=== PATIENT | male | born 1945 | race Caucasian/White ===

== ENCOUNTER 2017-06-13 21:41 | Inpatient (IN) | payer OTHER ==
[~2017-06-13] VITALS: Ht 170.2 cm; Wt 104.9 kg
[2017-06-13] MEDS ORDERED: ASPIRIN 81 MG CHEW PO STA (22:27)
--- NOTE | 2017-06-13 22:50 | DIAGNOSTIC IMAGING REPORT ---
SINGLE VIEW CHEST CLINICAL HISTORY: Atypical chest pain. FINDINGS: An AP, portable, upright chest radiograph is obtained. No prior studies are available for comparison at the time of dictation. The examination is degraded by portable technique and patient rotation. The heart is enlarged. The pulmonary vasculature is noncongested. The lungs and pleural spaces are clear. No pneumothorax is seen. The skeletal structures are osteopenic. The bony thorax is grossly intact. IMPRESSION: Cardiomegaly with no acute cardiopulmonary abnormality. Electronically signed by: Jakob Martinez M.D. 06/13/2017 10:49 PM Dictated Date/Time: 06/13/2017 10:49 PM
[2017-06-13] MEDS ORDERED: ISS/10 PO (23:08)
[2017-06-13] MEDS ORDERED: NVLGI/PEN SC (23:08)
[2017-06-13] MEDS ORDERED: METO25TA56 PO (23:08)
[2017-06-13] MEDS ORDERED: FLUO40CA8 PO (23:08)
[2017-06-13] MEDS ORDERED: ASPI81TA28 PO (23:08)
[2017-06-13] MEDS ORDERED: FENO134C2 PO (23:08)
[2017-06-13] MEDS ORDERED: INSDGIPEN SC (23:08)
[2017-06-13] MEDS ORDERED: ATOR-24 PO (23:08)
[2017-06-13] MEDS ORDERED: NTRGSL/4 UT (23:08)
[2017-06-13 23:21] LABS: BASO % 0.5 %; BASO ABS # 0.06 K/uL (0-0.2); COMPLETE YES; EOS % 4.1 %; HEMATOCRIT 48.3 % (42-52); IG% 0.4 %; LYMPH % 32.9 %; LYMPH ABS # 4.06 K/uL (1.2-3.4); MEAN CELL VOLUME 94.2 fL (80-100); MEAN CORPUSCULAR HGB CONC 32.9 g/dl (32-36); MEAN PLATELET VOLUME 10.3 fL (7.4-10.4); MONO % 8.6 %; NEUT % 53.5 %; PLATELET COUNT 308 K/uL (130-400); RED BLOOD COUNT 5.13 M/uL (4.7-6.1); WHITE BLOOD COUNT 12.34 K/uL (4.8-10.8)
[2017-06-13 23:28] LABS: ALT/SGPT 42 U/L (12-78); BLOOD UREA NITROGEN 16 mg/dl (7-18); BUN/CREATININE RATIO 13.6 (10-20); CARBON DIOXIDE 25 mmol/L (21-32); CHLORIDE 106 mmol/L (98-107); GLUCOSE 280 mg/dl (70-99); POTASSIUM 4.2 mmol/L (3.5-5.1); SODIUM 139 mmol/L (136-145)
[2017-06-13 23:33] LABS: ALKALINE PHOSPHATASE 71 U/L (45-117); AST/SGOT 24 U/L (15-37)
[2017-06-14] VITALS (13 sets, daily range): BP systolic 94–169; BP diastolic 54–109; PULSE 59–94; TEMP 36.6–37; O2SAT 93–95; BMI 36.8
--- NOTE | 2017-06-14 00:57 | EMERGENCY ROOM VISIT NOTE ---
History Report prepared by Keegan: Regine Wilson Under the Supervision of: Dr. Godfrey Zapien M.D. First contact with patient: 22:16 Chief Complaint: CHEST PAIN Stated Complaint: CHEST PAIN Nursing Triage Summary: Patient reports chest pain that began approx 40 mins ago. Patient has hx 4 stents and 2 RI's. Patient has been under a lot of stress taking care of his . Patient took 1 Nitro when pain began and the pain subsided with the Nitro. History of Present Illness The patient is a 71 year old male who presents to the Emergency Room with complaints of intermittent chest pain starting 1 hour ago. He states that the pain feels like indigestion. He took some nitro which relieved the pain. He had a second episode of chest pain while he was in the ED. It lasted for around 5 minutes. He states that he has a "feeling of doom". He had some SOB and tachycardia with the chest pain. The pain does not radiate elsewhere. He denies any nausea or diaphoresis. He has a history of 2 MIs around 20 years ago. He has [address] He did not have chest pain like today at that time. He notes that he is under a lot of stress recently with the of his daughter and medical problems with his . He is feeling anxious. He denies any cough, congestion, fever, or chills. He has had intermittent diarrhea for months which was attributed to one of his medications. He has a history of diabetes and is on insulin. He has been eating and drinking well. Source of History: patient Onset: 1 hour ago Position: chest Quality: other (like indigestion) Timing: intermittent Modifying Factors (Relieving): other (nitro) Associated Symptoms: + SOB, No diaphoresis, No nausea Note: Pt reports tachycardia, anxiety. Review of Systems See HPI for pertinent positives and negatives. A total of ten systems were reviewed and were otherwise negative. Past Medical & Surgical Medical Problems: (1) Anxiety (2) CAD (coronary artery disease), [place] coronary artery (3) CAD S/P percutaneous coronary angioplasty (4) COPD (chronic obstructive pulmonary disease) (5) Depression (6) Diabetes (7) HTN (hypertension) (8) Left bundle branch block (LBBB) on electrocardiogram (9) Macroalbuminuric diabetic nephropathy (10) Myocardial infarction (11) Noncompliance w/medication treatment due to intermit use of medication (12) Obesity (BMI 30-39.9) (13) T2DM (type 2 diabetes mellitus) Surgical Problems: (1) S/P soraya Social History Problems: (1) Tobacco use Family History No pertinent family history stated. Social History Smoking Status: Current Every Day Smoker Marital Status: Current/Historical Medications Scheduled Aspirin (Aspirin Ec), 81 MG PO HS Atorvastatin (Lipitor), 40 MG PO HS Fenofibrate (Tricor ), 134 MG PO HS Fluoxetine (Prozac), 40 MG PO HS Insulin Aspart (Novolog Flexpen), 26 UNITS SC TIDM Insulin Glargine (Lantus Solostar), 40 UNITS SC HS Isosorbide Dinitrate (Isordil), 10 MG PO HS Metoprolol Tartrate (Lopressor) (Lopressor), 25 MG PO HS Scheduled PRN Nitroglycerin (Nitrostat), 0.4 MG UT UD PRN for Chest Pain Allergies Coded Allergies: VELMA Inhibitors (Verified Allergy, Unknown, unknown, 06/14/17) Physical Exam Vital Signs Date Time Temp Pulse Resp B/P (MAP) Pulse Ox O2 Delivery O2 Flow Rate FiO2 06/13/17 23:07 85 18 156/58 95 06/13/17 23:02 98 Room Air 06/13/17 22:04 95 06/13/17 21:44 36.9 96 16 177/76 97 Room Air Physical Exam GENERAL: Awake, alert, in no acute distress HENT: Normocephalic, atraumatic. Dry mucous membranes. EYES: Normal conjunctiva. Sclera non-icteric. NECK: Supple. No nuchal rigidity. FROM. No JVD. RESPIRATORY: Clear to auscultation. CARDIAC: Regular rate, normal rhythm. Extremities warm and well perfused. Pulses equal. ABDOMEN: Soft, non-distended. No tenderness to palpation. No rebound or guarding. No masses. RECTAL: Deferred. MUSCULOSKELETAL: Chest examination reveals no tenderness. The back is symmetrical on inspection without obvious abnormality. There is no CVA tenderness to palpation. No joint edema. LOWER EXTREMITIES: Calves are equal size bilaterally and non-tender. No edema. No discoloration. NEURO: Normal sensorium. No sensory or motor deficits noted. SKIN: No rash or jaundice noted. Medical Decision & Procedures ER Provider Diagnostic Interpretation: Radiology results as stated below per my review and radiologist interpretation: SINGLE VIEW CHEST CLINICAL HISTORY: Atypical chest pain. FINDINGS: An AP, portable, upright chest radiograph is obtained. No prior studies are available for comparison at the time of dictation. The examination is degraded by portable technique and patient rotation. The heart is enlarged. The pulmonary vasculature is noncongested. The lungs and pleural spaces are clear. No pneumothorax is seen. The skeletal structures are osteopenic. The bony thorax is grossly intact. IMPRESSION: Cardiomegaly with no acute cardiopulmonary abnormality. Electronically signed by: Jakob Martinez M.D. 06/13/2017 10:49 PM Dictated Date/Time: 06/13/2017 10:49 PM Laboratory Results Test 06/13/17 21:55 06/13/17 22:08 Immature Granulocyte % (Auto) 0.4 % White Blood Count 12.34 K/uL (4.8-10.8) Red Blood Count 5.13 M/uL (4.7-6.1) Hemoglobin 15.9 g/dL (14.0-18.0) Hematocrit 48.3 % (42-52) Mean Corpuscular Volume 94.2 fL (80-100) Mean Corpuscular Hemoglobin 31.0 pg (25-34) Mean Corpuscular Hemoglobin Concent 32.9 g/dl (32-36) Platelet Count 308 K/uL (130-400) Mean Platelet Volume 10.3 fL (7.4-10.4) Neutrophils (%) (Auto) 53.5 % Lymphocytes (%) (Auto) 32.9 % Monocytes (%) (Auto) 8.6 % Eosinophils (%) (Auto) 4.1 % Basophils (%) (Auto) 0.5 % Neutrophils # (Auto) 6.60 K/uL (1.4-6.5) Lymphocytes # (Auto) 4.06 K/uL (1.2-3.4) Monocytes # (Auto) 1.06 K/uL (0.11-0.59) Eosinophils # (Auto) 0.51 K/uL (0-0.5) Basophils # (Auto) 0.06 K/uL (0-0.2) Immature Granulocyte # (Auto) 0.05 K/uL (0.00-0.02) Total Bilirubin 0.4 mg/dl (0.2-1) Direct Bilirubin 0.1 mg/dl (0-0.2) Aspartate Amino Transf (AST/SGOT) 24 U/L (15-37) Alanine Aminotransferase (ALT/SGPT) 42 U/L (12-78) Alkaline Phosphatase 71 U/L (45-117) Total Protein 7.0 gm/dl (6.4-8.2) Albumin 3.6 gm/dl (3.4-5.0) Lipase 256 U/L (73-393) Bedside Troponin I < 0.030 ng/ml (0-0.045) Laboratory results reviewed by me Medications Administered Medications (Trade) Dose Ordered Sig/Mariella Route Start Time Stop Time Status Last Admin Dose Admin Aspirin (Aspirin Chew) 324 mg NOW STAT PO 06/13/17 22:27 06/13/17 22:29 DC 06/13/17 23:03 324 MG Nitroglycerin (Nitrostat Tab) 0.4 mg UD PRN SL 06/14/17 01:00 07/14/17 00:59 06/14/17 06:00 0.4 MG ECG Indication: chest pain Rate (beats per minute): 91 Rhythm: atrial fibrillation Findings: LBBB, no acute ischemic change ED Course 2226: The patient was evaluated in room C10. A complete history and physical exam was performed. 2227: Aspirin 324 mg PO. 2358: Upon reexamination, the patient was resting comfortably. I discussed the test results and treatment plan with him. The patient will be evaluated for further management. 0011: I discussed the patient's case with Dr. Colon, [facility]. The patient will be evaluated for further treatment and disposition. Medical Decision I reviewed the patient's past medical history, medications, and the nursing notes as described above. Differential diagnosis: pneumonia, bronchitis, ACS, gastritis, Arrhythmia, dehydration, electrolyte abnormalities The patient is a 71-year-old gentleman with a past medical history of CAD/RI just emergent department with chest pain starting prior to arrival that he felt was similar to his heart attack in the past, took nitroglycerin with resolution of symptoms per hpi. On arrival the patient is in no acute distress denying any symptoms, afebrile with stable vital signs. During patient's ED observation patient reported a return episode of the similar chest pain that resolved after 5 minutes. EKG shows atrial fibrillation with a left bundle branch block without any Sgarbossa criteria or signs of ischemia otherwise. Unclear if LBBB is new or old, however, Troponin negative, thus will continue to trend and monitor sx. Chest x-ray unremarkable. Given the patient's history of cardiac disease in the setting of his symptoms, Heart score 6, moderate risk , will admit the patient for further cardiac rule out. Patient given ASA. Case discussed with Thad Dill hospitalist, who will admit the patient for further management. On further review of the patient's hx, patient's afib appears to be new, CHADsVasc 3 and he is not on anticoagulation. Denies h/o GI bleeds. Dr. Colon updated and will begin heparin until further plan confirmed in consultation with cardiology. Medication Reconcilliation Current Medication List: was personally reviewed by me Blood Pressure Screening Patient's blood pressure: Elevated blood pressure Blood pressure disposition: Elevated BP felt to be situational Consults Time Called: 0000 Consulting Physician[facility] Return[facility] Call: 0011 Discussed the patient's case. The patient will be evaluated for further treatment and disposition. Impression Primary Impression: Substernal chest pain Scribe Attestation The scribe's documentation has been prepared under my direction and personally reviewed by me in its entirety. I confirm that the note above accurately reflects all work, treatment, procedures, and medical decision making performed by me. Departure Information Dispostion Being Evaluated By Hospitalist Referrals No Doctor, Assigned (PCP) Patient Instructions My [facility]
[2017-06-14] MEDS ORDERED: MoRPHine SULFATE 2 MG/ML CARP IV PRN (01:00)
[2017-06-14] MEDS ORDERED: NITROGLYCERIN 0.4 MG SL PER TAB CHARGE SL PRN (01:00)
[2017-06-14] MEDS ORDERED: PATIENT'S ALLERGY INFO NEEDS ENTERED SCH (02:15)
[2017-06-14] MEDS ORDERED: HEPARIN IV BOLUS 7,000 UNIT in SYRINGE 0 ML IV ONE (03:00)
[2017-06-14] MEDS ORDERED: INFLUENZA VACCINE HIGH DOSE 65+ 0.5 ML SYR IM. ONE (03:15)
[2017-06-14] MEDS ORDERED: PNEUMOCOCCAL ADMINISTRATION CHARGE ONE (03:15)
[2017-06-14] MEDS ORDERED: PNEUMOCOCCAL POLYSACCHARIDES 25 MCG/0.5 ML VIAL/SYR IM. ONE (03:15)
[2017-06-14] MEDS ORDERED: INFLUENZA ADMINISTRATION CHARGE ONE (03:15)
[2017-06-14] MEDS ORDERED: IV FLUIDS COMPLETED PRN (03:15)
[2017-06-14] MEDS: HEPARIN 25,000 UNIT/500ML D5W 500 ML IV PRN ×2 (03:42→20:07)
[2017-06-14] MEDS ORDERED: GLUCOSE 10 TABS/TUBE PO PRN (04:00)
[2017-06-14] MEDS ORDERED: GLUCOSE 40% GEL 15 GM TUBE PO PRN (04:00)
[2017-06-14] MEDS ORDERED: DEXTROSE 50% 50 ML SYR IV PRN (04:00)
[2017-06-14] MEDS ORDERED: GLUCAGON FOR INJ 1 MG VIAL SQ PRN (04:00)
--- NOTE | 2017-06-14 04:14 | History and Physical ---
History & Physical Date & Time of Service: Jun 14, 2017 at 03:54 Chief Complaint: Substernal Chest Pain Primary Care Physician: Viet Holly D.OBrooks History of Present Illness Source: patient, clinic records, hospital records 71 yo diabetic male with known heart disease s/p TX with 4 stents placed over 10 years ago presents with chest pain today. He states that 1 hour after dinner he developed substernal chest pain that came on at rest and made him feel a "sense of doom" as though the "world were closing in on him." He describes this as a "feeling I've never had before" This pain was associated with diaphoresis and some palpitations; he denies associated lightheadedness, nausea or SOB. He does not recall a history of palpitations prior to this but states that he did feel some chest pressure for 30-60 minutes that occurred while he was watching TV 3 weeks ago. He was less concerned about this episode , however, as he knew he had just taken insulin and he thought he just had low blood sugar. He denies a h/o afib and this is not found in his record. He states that he has noticeable dyspnea on exertion over the past 6 months but the changes are subtle and not limiting him in his lifestyle which is very active at baseline consisting of hunting deer and bear including skinning/ cleaning the animals. He is going through a very hard time over the last few months.also. His daughter was brutally murdered, his granddaughter was hurt as a bystander and he and his are fighting for custody of her. Then most recently, his was in the hospital for two weeks and diagnosed with lung cancer; she is starting on her chemotherapy regimen soon. He is still an active smoker who states that he has smoked for 50 years and he is down to 1 ppd instead of 2. He is requesting a nicotine patch. He is using snuff on the side. He denies having seen a hat copyist in 10 years. He reports noncompliance with his medications including his insulin. Past Medical/Surgical History Medical Problems: (1) Anxiety Status: Chronic (2) CAD (coronary artery disease), [place] coronary artery Status: Chronic (3) CAD S/P percutaneous coronary angioplasty Permanent Comment: 4 stents Status: Chronic (4) COPD (chronic obstructive pulmonary disease) Status: Chronic (5) Depression Status: Chronic (6) HTN (hypertension) Status: Chronic (7) Left bundle branch block (LBBB) on electrocardiogram Status: Chronic (8) Macroalbuminuric diabetic nephropathy Status: Chronic (9) Myocardial infarction Status: Resolved (10) Noncompliance w/medication treatment due to intermit use of medication Status: Chronic (11) Obesity (BMI 30-39.9) Status: Chronic (12) T2DM (type 2 diabetes mellitus) Status: Chronic Surgical Problems: (1) S/P soraya Status: Chronic Social History Problems: (1) Tobacco use Status: Chronic Family History FH: CAD (coronary artery disease) FATHER (83 yo) FH: cancer MOTHER Social History Smoking Status: Current Every Day Smoker Smokeless Tobacco Use: Yes Drug Use: none Marital Status: Housing status: lives with significant other Occupational Status: retired Immunizations History of Influenza Vaccine: Yes Influenza Vaccine Date: Jul 19, 2016 History of Tetanus Vaccine?: Yes Tetanus Immunization Date: Dec 31, 2008 History of Pneumococcal: Yes Pneumococcal Date: Jul 19, 2016 History of Hepatitis B Vaccine: No Multi-Drug Resistant Organisms History of MDRO: No Allergies Coded Allergies: Gaurang Inhibitors (Verified Allergy, Unknown, unknown, 06/14/17) Home Medications Scheduled Aspirin (Aspirin Ec), 81 MG PO HS Atorvastatin (Lipitor), 40 MG PO HS Fenofibrate (Tricor ), 134 MG PO HS Fluoxetine (Prozac), 40 MG PO HS Insulin Aspart (Novolog Flexpen), 26 UNITS SC TIDM Insulin Glargine (Lantus Solostar), 40 UNITS SC HS Isosorbide Dinitrate (Isordil), 10 MG PO HS Metoprolol Tartrate (Lopressor) (Lopressor), 25 MG PO HS Scheduled PRN Nitroglycerin (Nitrostat), 0.4 MG UT UD PRN for Chest Pain Review of Systems Constitutional: No fever, No chills, No weakness Eyes: No problem reported ENT: No problem reported Respiratory: + dyspnea on exertion, No cough, No shortness of breath Cardiovascular: + chest pain Abdomen: No pain, No nausea, No vomiting, No diarrhea, No constipation, No GI bleeding Musculoskeletal: No joint pain, No muscle pain Genitourinary - Male: No problem reported Neurologic: No problem reported Psychiatric: + depression symptoms, + anxiety Hematologic / Lymphatic: No abnormal bleeding/bruising Integumentary: No new/changing skin lesions Allergic / Immunologic: No food allergies Physical Exam Vital Signs Date Time Temp Pulse Resp B/P (MAP) Pulse Ox O2 Delivery O2 Flow Rate FiO2 06/14/17 02:30 36.8 94 18 135/59 95 Room Air 06/14/17 01:25 89 18 134/73 95 Room Air 06/13/17 23:07 85 18 156/58 95 06/13/17 23:02 98 Room Air 06/13/17 22:04 95 06/13/17 21:44 36.9 96 16 177/76 97 Room Air General Appearance: no apparent distress, + obese Head: normocephalic, atraumatic Eyes: normal inspection, PERRL, sclerae normal ENT: hearing grossly normal, pharynx normal Neck: supple, no adenopathy, trachea midline Respiratory/Chest: chest non-tender, lungs clear, normal breath sounds, no respiratory distress, no accessory muscle use Cardiovascular: regular rate, rhythm, no edema, no gallop, no JVD, no murmur, normal peripheral pulses Abdomen/GI: normal bowel sounds, non tender, soft Back: normal inspection Extremities/Musculoskelatal: normal inspection, no calf tenderness, normal range of motion Neurologic/Psych: no motor/sensory deficits, alert, normal mood/affect, oriented x 3 Skin: normal color, warm/dry, no rash, + pertinent finding (tattooes across back) Diagnostics Laboratory Results Test 06/13/17 21:55 06/13/17 22:08 06/14/17 04:00 RDW Standard Deviation 44.7 fL (36.4-46.3) RDW Coefficient of Variation 12.8 % (11.5-14.5) White Blood Count 12.34 K/uL (4.8-10.8) Red Blood Count 5.13 M/uL (4.7-6.1) Hemoglobin 15.9 g/dL (14.0-18.0) Hematocrit 48.3 % (42-52) Mean Corpuscular Volume 94.2 fL (80-100) Mean Corpuscular Hemoglobin 31.0 pg (25-34) Mean Corpuscular Hemoglobin Concent 32.9 g/dl (32-36) Platelet Count 308 K/uL (130-400) Mean Platelet Volume 10.3 fL (7.4-10.4) Neutrophils (%) (Auto) 53.5 % Lymphocytes (%) (Auto) 32.9 % Monocytes (%) (Auto) 8.6 % Eosinophils (%) (Auto) 4.1 % Basophils (%) (Auto) 0.5 % Neutrophils # (Auto) 6.60 K/uL (1.4-6.5) Lymphocytes # (Auto) 4.06 K/uL (1.2-3.4) Monocytes # (Auto) 1.06 K/uL (0.11-0.59) Eosinophils # (Auto) 0.51 K/uL (0-0.5) Basophils # (Auto) 0.06 K/uL (0-0.2) Immature Granulocyte % (Auto) 0.4 % Immature Granulocyte # (Auto) 0.05 K/uL (0.00-0.02) Est Creatinine Clear Calc Drug Dose 65.9 ml/min Total Bilirubin 0.4 mg/dl (0.2-1) Direct Bilirubin 0.1 mg/dl (0-0.2) Aspartate Amino Transf (AST/SGOT) 24 U/L (15-37) Alanine Aminotransferase (ALT/SGPT) 42 U/L (12-78) Alkaline Phosphatase 71 U/L (45-117) Total Protein 7.0 gm/dl (6.4-8.2) Albumin 3.6 gm/dl (3.4-5.0) Lipase 256 U/L (73-393) Bedside Troponin I < 0.030 ng/ml (0-0.045) Creatine Kinase MB Ratio (0-3.0) Test 06/13/17 21:55 06/13/17 22:08 06/14/17 04:00 RDW Standard Deviation 44.7 fL (36.4-46.3) RDW Coefficient of Variation 12.8 % (11.5-14.5) White Blood Count 12.34 K/uL (4.8-10.8) Red Blood Count 5.13 M/uL (4.7-6.1) Hemoglobin 15.9 g/dL (14.0-18.0) Hematocrit 48.3 % (42-52) Mean Corpuscular Volume 94.2 fL (80-100) Mean Corpuscular Hemoglobin 31.0 pg (25-34) Mean Corpuscular Hemoglobin Concent 32.9 g/dl (32-36) Platelet Count 308 K/uL (130-400) Mean Platelet Volume 10.3 fL (7.4-10.4) Neutrophils (%) (Auto) 53.5 % Lymphocytes (%) (Auto) 32.9 % Monocytes (%) (Auto) 8.6 % Eosinophils (%) (Auto) 4.1 % Basophils (%) (Auto) 0.5 % Neutrophils # (Auto) 6.60 K/uL (1.4-6.5) Lymphocytes # (Auto) 4.06 K/uL (1.2-3.4) Monocytes # (Auto) 1.06 K/uL (0.11-0.59) Eosinophils # (Auto) 0.51 K/uL (0-0.5) Basophils # (Auto) 0.06 K/uL (0-0.2) Immature Granulocyte % (Auto) 0.4 % Immature Granulocyte # (Auto) 0.05 K/uL (0.00-0.02) Est Creatinine Clear Calc Drug Dose 65.9 ml/min Total Bilirubin 0.4 mg/dl (0.2-1) Direct Bilirubin 0.1 mg/dl (0-0.2) Aspartate Amino Transf (AST/SGOT) 24 U/L (15-37) Alanine Aminotransferase (ALT/SGPT) 42 U/L (12-78) Alkaline Phosphatase 71 U/L (45-117) Total Protein 7.0 gm/dl (6.4-8.2) Albumin 3.6 gm/dl (3.4-5.0) Lipase 256 U/L (73-393) Bedside Troponin I < 0.030 ng/ml (0-0.045) Creatine Kinase MB Ratio (0-3.0) Results Past 24 Hours Test 06/13/17 21:55 06/13/17 22:08 06/14/17 03:13 Range/Units White Blood Count 12.34 4.8-10.8 K/uL Red Blood Count 5.13 4.7-6.1 M/uL Hemoglobin 15.9 14.0-18.0 g/dL Hematocrit 48.3 42-52 % Mean Corpuscular Volume 94.2 80-100 fL Mean Corpuscular Hemoglobin 31.0 25-34 pg Mean Corpuscular Hemoglobin Concent 32.9 32-36 g/dl Platelet Count 308 130-400 K/uL Mean Platelet Volume 10.3 7.4-10.4 fL Neutrophils (%) (Auto) 53.5 % Lymphocytes (%) (Auto) 32.9 % Monocytes (%) (Auto) 8.6 % Eosinophils (%) (Auto) 4.1 % Basophils (%) (Auto) 0.5 % Neutrophils # (Auto) 6.60 1.4-6.5 K/uL Lymphocytes # (Auto) 4.06 1.2-3.4 K/uL Monocytes # (Auto) 1.06 0.11-0.59 K/uL Eosinophils # (Auto) 0.51 0-0.5 K/uL Basophils # (Auto) 0.06 0-0.2 K/uL RDW Standard Deviation 44.7 36.4-46.3 fL RDW Coefficient of Variation 12.8 11.5-14.5 % Immature Granulocyte % (Auto) 0.4 % Immature Granulocyte # (Auto) 0.05 0.00-0.02 K/uL Sodium Level 139 136-145 mmol/L Potassium Level 4.2 3.5-5.1 mmol/L Chloride Level 106 98-107 mmol/L Carbon Dioxide Level 25 21-32 mmol/L Anion Gap 8.0 3-11 mmol/L Blood Urea Nitrogen 16 7-18 mg/dl Creatinine 1.20 0.60-1.40 mg/dl Est Creatinine Clear Calc Drug Dose 65.9 ml/min Estimated GFR () 70.1 Estimated GFR (Non- 60.5 BUN/Creatinine Ratio 13.6 10-20 Random Glucose 280 70-99 mg/dl Calcium Level 9.0 8.5-10.1 mg/dl Total Bilirubin 0.4 0.2-1 mg/dl Direct Bilirubin 0.1 0-0.2 mg/dl Aspartate Amino Transf (AST/SGOT) 24 15-37 U/L Alanine Aminotransferase (ALT/SGPT) 42 12-78 U/L Alkaline Phosphatase 71 45-117 U/L Troponin I < 0.015 0-0.045 ng/ml Total Protein 7.0 6.4-8.2 gm/dl Albumin 3.6 3.4-5.0 gm/dl Lipase 256 73-393 U/L Bedside Troponin I < 0.030 0-0.045 ng/ml Diagnostic Radiology SINGLE VIEW CHEST CLINICAL HISTORY: Atypical chest pain. FINDINGS: An AP, portable, upright chest radiograph is obtained. No prior studies are available for comparison at the time of dictation. The examination is degraded by portable technique and patient rotation. The heart is enlarged. The pulmonary vasculature is noncongested. The lungs and pleural spaces are clear. No pneumothorax is seen. The skeletal structures are osteopenic. The bony thorax is grossly intact. IMPRESSION: Cardiomegaly with no acute cardiopulmonary abnormality. EKG atrial fibrillation, LBBB, 91 bpm Impression Assessment and Plan 71 yo diabetic smoker with known heart disease s/p stents presents with an episode of chest pain, new onset atrial fibrillation and worsening MOSQUEDA over 6 months. 1. Substernal chest pain-improved with nitro but he is very active with no pain or SOB present. Episode tonight was about 5 minutes in length. He is experiencing some very notable stressors, and admits to not taking all of his medications (including insulin) as it is prescribed. Afib may also be causing the discomfort or even indigestion. Serial cardiac enzymes overnight, TTE in am with Cardiology consult to assist with what stress test mechanism to use for risk stratification moving forward. Pain resolved at home and in the ER with nitro use, Cont ASA, statin, Plavix. 2. CAD-s/p stents. Cont medical management. 3. New onset atrial fibrillation. Started heparin drip while awaiting evaluation and further discussion with Cardiology team. TTE pending. TSH pending. Does not meet criteria or have any clinical symptoms of pulmonary embolism. Rate is WNL. No rate control is needed at this time. 4. Depression-cont Prozac and Ativan PRN 5. DMII-cont Lantus/Novolog. PT admits to noncompliance and has known complications. 6. LBBB-chronic on prior EKG 7. Psoriasis-controlled only with topical steroids PRN. DVT proph: Heparin drip Full Code Dispo-to telemetry overnight [facility] Level of Care Telemetry Advanced Directives Existing Living Will: No Existing Power of Optometric Tech: Yes Resuscitation Status FULL RESUSCITATION VTE Prophylaxis VTE Risk Assessment Done? Y/N: Yes Risk Level: Moderate Given or contraindicated: Unfractionated heparin SQ
[2017-06-14 04:15] LABS: HEMATOCRIT 44.7 % (42-52); MEAN CELL VOLUME 92.7 fL (80-100); MEAN CORPUSCULAR HEMOGLOBIN 32.2 pg (25-34); MEAN CORPUSCULAR HGB CONC 34.7 g/dl (32-36); MEAN PLATELET VOLUME 10.6 fL (7.4-10.4); PLATELET COUNT 281 K/uL (130-400); RED BLOOD COUNT 4.82 M/uL (4.7-6.1); WHITE BLOOD COUNT 12.73 K/uL (4.8-10.8)
[2017-06-14 04:19] LABS: PARTIAL THROMBOPLASTIN RATIO 1.3
[2017-06-14 04:58] LABS: BUN/CREATININE RATIO 21.7 (10-20); CALCIUM 8.4 mg/dl (8.5-10.1); CREATININE 0.84 mg/dl (0.60-1.40)
[2017-06-14 05:06] LABS: CHOLESTEROL/HDL RATIO 4.2; CKMB/CK RATIO 3.2 (0-3.0)
[2017-06-14] MEDS ORDERED: PERFLUTREN LIPID MICROSPHERE (DEFINITY) IV ONE (07:01)
[2017-06-14] MEDS: NICOTINE 21 MG/24 HR TDSY TD SCH (08:56)
[2017-06-14] MEDS: FENOFIBRATE 145 MG TAB PO SCH (08:56)
[2017-06-14] MEDS: ASPIRIN 81 MG ECTAB PO SCH (08:56)
[2017-06-14] MEDS: INSULIN ASPART 100 UNITS/ML 3 ML PEN SC SCH ×4 (09:00→20:56)
[2017-06-14] MEDS: INSULIN GLARGINE SOLOSTAR 100 UNITS/ML 3 ML PEN SC SCH ×2 (09:00→20:56)
[2017-06-14 10:41] LABS: PARTIAL THROMBOPLASTIN RATIO 2.1
[2017-06-14] MEDS ORDERED: PHARMACY GLYCEMIC MGMT CONSULT PRN (10:43)
[2017-06-14 11:01] LABS: CKMB/CK RATIO 3.5 (0-3.0)
--- NOTE | 2017-06-14 11:55 | Progress Note ---
Medicine Progress Note Date & Time of Visit: Jun 14, 2017 at 11:55. Subjective patient seen resting in bed, tearful has been having successive stressors lately with recent and illness in the family patient reassured and seemed to be better had occasional chest pain overnight none on exam denies dyspnea, dizziness, headache, nausea no other symptoms Objective Last 8 Hrs Date Time Temp Pulse Resp B/P (MAP) Pulse Ox O2 Delivery O2 Flow Rate FiO2 06/14/17 11:40 165/80 (108) 06/14/17 11:11 36.9 81 20 169/109 (129) 94 Room Air 06/14/17 08:00 95 Room Air 06/14/17 07:22 36.7 83 20 154/75 (101) 95 Room Air 06/14/17 05:54 79 139/80 (99) 06/14/17 04:00 Room Air 06/14/17 04:00 37.0 87 16 123/70 (87) 93 Room Air Physical Exam: General- oriented x 3, not in distress, speaks in sentences with no effort Head- atraumatic Eyes- EOMI, anicteric ENT- oropharynx clear Neck- supple, no JVD, no adenopathy, no thyromegaly Lungs- clear breath sounds bilaterally, no rales/wheezes Heart- regular rhythm; no murmur, normal rate Abdomen- normal bowel sounds, soft, nontender Extremities- no pretibial edema, no calf tenderness Neuro- alert, oriented x 3; no gross focal deficits Skin- warm & dry Laboratory Results: Last 24 Hours Test 06/13/17 21:55 06/13/17 22:08 06/14/17 04:00 06/14/17 08:53 White Blood Count 12.34 K/uL 12.73 K/uL Red Blood Count 5.13 M/uL 4.82 M/uL Hemoglobin 15.9 g/dL 15.5 g/dL Hematocrit 48.3 % 44.7 % Mean Corpuscular Volume 94.2 fL 92.7 fL Mean Corpuscular Hemoglobin 31.0 pg 32.2 pg Mean Corpuscular Hemoglobin Concent 32.9 g/dl 34.7 g/dl Platelet Count 308 K/uL 281 K/uL Mean Platelet Volume 10.3 fL 10.6 fL Neutrophils (%) (Auto) 53.5 % Lymphocytes (%) (Auto) 32.9 % Monocytes (%) (Auto) 8.6 % Eosinophils (%) (Auto) 4.1 % Basophils (%) (Auto) 0.5 % Neutrophils # (Auto) 6.60 K/uL Lymphocytes # (Auto) 4.06 K/uL Monocytes # (Auto) 1.06 K/uL Eosinophils # (Auto) 0.51 K/uL Basophils # (Auto) 0.06 K/uL RDW Standard Deviation 44.7 fL 43.2 fL RDW Coefficient of Variation 12.8 % 12.7 % Immature Granulocyte % (Auto) 0.4 % Immature Granulocyte # (Auto) 0.05 K/uL Sodium Level 139 mmol/L 138 mmol/L Potassium Level 4.2 mmol/L 4.0 mmol/L Chloride Level 106 mmol/L 105 mmol/L Carbon Dioxide Level 25 mmol/L 26 mmol/L Anion Gap 8.0 mmol/L 7.0 mmol/L Blood Urea Nitrogen 16 mg/dl 18 mg/dl Creatinine 1.20 mg/dl 0.84 mg/dl Est Creatinine Clear Calc Drug Dose 65.9 ml/min 93.9 ml/min Estimated GFR () 70.1 102.1 Estimated GFR (Non- 60.5 88.1 BUN/Creatinine Ratio 13.6 21.7 Random Glucose 280 mg/dl 248 mg/dl Calcium Level 9.0 mg/dl 8.4 mg/dl Total Bilirubin 0.4 mg/dl Direct Bilirubin 0.1 mg/dl Aspartate Amino Transf (AST/SGOT) 24 U/L Alanine Aminotransferase (ALT/SGPT) 42 U/L Alkaline Phosphatase 71 U/L Troponin I < 0.015 ng/ml 0.097 ng/ml Total Protein 7.0 gm/dl Albumin 3.6 gm/dl Lipase 256 U/L Bedside Troponin I < 0.030 ng/ml Activated Partial Thromboplast Time 34.1 SECONDS Partial Thromboplastin Ratio 1.3 Total Creatine Kinase 56 U/L Creatine Kinase MB 1.8 ng/ml Creatine Kinase MB Ratio 3.2 Triglycerides Level 191 mg/dl Cholesterol Level 97 mg/dl HDL Cholesterol 23 mg/dl LDL Cholesterol, Calculated 36 mg/dl VLDL Cholesterol, Calculated 38 mg/dl Cholesterol/HDL Ratio 4.2 Bedside Glucose 217 mg/dl Test 06/14/17 09:50 06/14/17 11:22 Activated Partial Thromboplast Time 55.0 SECONDS Partial Thromboplastin Ratio 2.1 Total Creatine Kinase 54 U/L Creatine Kinase MB 1.9 ng/ml Creatine Kinase MB Ratio 3.5 Troponin I 0.126 ng/ml Thyroid Stimulating Hormone (TSH) 3.050 uIu/ml Bedside Glucose 175 mg/dl Assessment & Plan 71 yo diabetic smoker with known heart disease s/p stents presents with an episode of chest pain, new onset atrial fibrillation and worsening MOSQUEDA over 6 months. 1. Substernal chest pain - 2nd troponin slightly elevated - Metoprolol increased, Imdur added possible stress test in AM 2. CAD-s/p stents - Cont medical management. 3. New onset atrial fibrillation. - Metoprolol increased on Heparin 4. Depression-cont Prozac and Ativan PRN 5. DMII-cont Lantus/Novolog. 6. LBBB-chronic on prior EKG 7. Psoriasis-controlled only with topical steroids PRN. DVT proph: Heparin drip Full Code Disposition for possible stress test in AM Current Inpatient Medications: Current Inpatient Medications Medications (Trade) Dose Ordered Sig/Mariella Route Start Time Stop Time Status Last Admin Dose Admin Nitroglycerin (Nitrostat Tab) 0.4 mg UD PRN SL 06/14/17 01:00 07/14/17 00:59 06/14/17 06:00 0.4 MG Morphine Sulfate (MoRPHine SULFATE INJ) 2 mg Q30M PRN IV 06/14/17 01:00 06/28/17 00:59 Aspirin (Ecotrin Tab) 81 mg QAM PO 06/14/17 09:00 07/14/17 08:59 06/14/17 08:56 81 MG Heparin Sodium/ Dextrose 500 ml @ 30 mls/hr [id number] PRN IV 06/14/17 03:15 07/14/17 03:14 06/14/17 03:42 30 MLS/HR Miscellaneous (Iv Fluids Completed) 1 ea PRN PRN N/A 06/14/17 03:15 06/14/18 03:14 Atorvastatin Calcium (Lipitor Tab) 40 mg HS PO 06/14/17 21:00 07/14/17 20:59 Fluoxetine HCl (Prozac Cap) 40 mg HS PO 06/14/17 21:00 07/14/17 20:59 Isosorbide Dinitrate (Isordil Tab) 10 mg HS PO 06/14/17 21:00 07/14/17 20:59 Metoprolol Tartrate (Lopressor Tab) 25 mg HS PO 06/14/17 21:00 07/14/17 20:59 Fenofibrate (Tricor Tab) 145 mg QAM PO 06/14/17 09:00 07/14/17 08:59 06/14/17 08:56 145 MG Insulin Glargine (Lantus Solostar Pen) 20 units Q12 SC 06/14/17 09:00 07/14/17 08:59 06/14/17 09:00 20 UNITS Insulin Aspart (novoLOG ASPART) SLIDING SCALE If C... ACHS SC 06/14/17 06:30 07/14/17 06:29 06/14/17 09:00 2 UNITS Glucose (Glucose 40% Gel) 15-30 GRAMS 15 GRAMS... UD PRN PO 06/14/17 04:00 07/14/17 03:59 Glucose (Glucose Chew Tab) 4-8 Tablets 4 Tabl... UD PRN PO 06/14/17 04:00 07/14/17 03:59 Dextrose (Dextrose 50% 50ML Syringe) 25-50ML OF 50% DW IV FOR... UD PRN IV 06/14/17 04:00 07/14/17 03:59 Glucagon (Glucagon Inj) 1 mg UD PRN SQ 06/14/17 04:00 07/14/17 03:59 Nicotine (Nicoderm Cq 21MG Patch) 1 patch Q24H TD 06/14/17 09:00 07/14/17 08:59 06/14/17 08:56 1 PATCH Miscellaneous (Remove Nicoderm Patch) 1 ea DAILY@2100 N/A 06/14/17 21:00 07/14/17 20:59 Miscellaneous Information (Consult Glycemic Management Pharmacy) 1 ea UD PRN N/A 06/14/17 10:43 07/14/17 10:42
--- NOTE | 2017-06-14 12:05 | Pharmacy Progress Note ---
Glycemic Control Intl Consult Date of Service Jun 14, 2017. Scope Glycemic Pharmacist consulted by Dr Colon on 06/14/17 for glycemic control and to write orders per [facility] inpatient glycemic control protocol Objective Weight (Kilograms): 106.600 Accuchecks BSG (last 24hrs): Test 06/13/17 21:55 06/14/17 04:00 06/14/17 08:53 06/14/17 11:22 Random Glucose 280 mg/dl (70-99) 248 mg/dl (70-99) Bedside Glucose 217 mg/dl (70-99) 175 mg/dl (70-99) Laboratory Data (last 24hrs) Test 06/13/17 21:55 06/14/17 04:00 Anion Gap 8.0 mmol/L 7.0 mmol/L BUN/Creatinine Ratio 13.6 21.7 Blood Urea Nitrogen 16 mg/dl 18 mg/dl Creatinine 1.20 mg/dl 0.84 mg/dl Potassium Level 4.2 mmol/L 4.0 mmol/L Sodium Level 139 mmol/L 138 mmol/L White Blood Count 12.34 K/uL 12.73 K/uL Red Blood Count 5.13 M/uL Hemoglobin 15.9 g/dL Hematocrit 48.3 % Mean Corpuscular Volume 94.2 fL Mean Corpuscular Hemoglobin 31.0 pg Mean Corpuscular Hemoglobin Concent 32.9 g/dl Platelet Count 308 K/uL Mean Platelet Volume 10.3 fL Neutrophils (%) (Auto) 53.5 % Lymphocytes (%) (Auto) 32.9 % Monocytes (%) (Auto) 8.6 % Eosinophils (%) (Auto) 4.1 % Basophils (%) (Auto) 0.5 % Neutrophils # (Auto) 6.60 K/uL Lymphocytes # (Auto) 4.06 K/uL Monocytes # (Auto) 1.06 K/uL Eosinophils # (Auto) 0.51 K/uL Basophils # (Auto) 0.06 K/uL HbA1c unknown Recent Pertinent Medications Outpatient Anti-diabetic Regimen: * Noncompliant The patient is currently receiving: * Basal insulin: Lantus 20 units every 12 hours * Correctional Insulin: Novolog Correction per scale ACHS Goal Range: Low 140 mg/dL - High 180 mg/dL Correction Factor: 20 mg/dL/unit * Prandial insulin: Per carb ratio of 1 unit per 7 grams CHO consumed Assessment & Plan ASSESSMENT: * 71 yo T2DM admitted with Afib/chest pain * Pt admits to MD that he is noncompliant with medications - sometimes feels low but is unsure what the BSG is * Given his noncompliance I agree completely with current orders for wt-based approach * I assume A1c will be high given presenting BSG in 200's this AM - A1c ordered for tomorrow * Continue current orders even though patient is NPO because I assume he is likely basal deficient in general (taking doses sporadically at home) * In case patient does not eat and happens to trend down I have placed a half dose parameter on Lantus * Tighten goal range to 110 - 140 mg/dL as patient is only receiving correctional insulin at this time for NPO status PLAN FOR INPATIENT GLYCEMIC CONTROL: * Basal insulin with LANTUS 20 units SQ BID * Half dose for BSG <100 mg/dL * Correctional Insulin with NOVOLOG per scale ACHS or Q6hrs while NPO * Goal Range: Low 110 mg/dL - High 140 mg/dL * Correction Factor: 20 mg/dL/unit * Nutritional / Prandial insulin per carb ratio of 1 unit per 7 grams CHO consumed * Please note that the plan above was derived based on current level of insulin resistance and hospital stress. These recommendations are appropriate for inpatient admission only. Plan of care upon discharge will need to be reassessed to avoid potential outpatient hypo/hyperglycemia. Thank you.
--- NOTE | 2017-06-14 12:17 | ECHOCARDIOGRAM REPORT ---
*NOTICE TO RECEIVING REPUBL[employer] AGENCY This information is strictly Confidential and protected under [place] law. [place] law prohibits you from making any further disclosure of this information unless further disclosure is expressly permitted by the written consent of the person to whom it pertains or is authorized by law. A general authorization for the release of medical or other information is not sufficient for this purpose. Hospital accepts no responsibility if the information is made available to any other person, INCLUDING THE PATIENT. Interpretation Summary * Name: ELIZABETH ARMSTRONG Study Date: 06/14/2017 06:31 AM BP: 154/75 mmHg * Patient Location: [facility]\S\N275\S\1 HR: 83 * : 1945 (M/d/yyyy) Gender: Male Height: 67 in * Age: 71 yrs Ethnicity: [place] Weight: 235 lb * Ordering Physician: Melania Colon * Referring Physician: Self, Referred * Performed By: Joy Kerr RDCS * * Reason For Study: AFIB * BSA: 2.2 m2 * -- Conclusions -- * The left ventricle is normal in size. * There is borderline concentric left ventricular hypertrophy. * Septal motion is consistent with conduction abnormality. * There is moderate to severe posterior wall hypokinesis. * There is severe inferior wall hypokinesis. * Ejection Fraction = 40-45%. * The left atrium is mildly dilated. * There is trace mitral regurgitation. Procedure Details * A contrast injection of Definity was performed to improve assessment of LV function. * Contrast was injected into an intravenous site in the right arm. * One vial of Definity ultrasound contrast was diluted in normal saline to a total volume of 10 ml. A total of '2' ml of solution was administered during imaging. * Lot # [id number] of Definity utilized for procedure. * Expiration date JUN 28. * The attending nurse who injected the contrast agent was MELISSA RODRÍGUEZ. * A complete two-dimensional transthoracic echocardiogram was performed (2D, M-mode, Doppler and color flow Doppler). Left Ventricle * The left ventricle is normal in size. * There is borderline concentric left ventricular hypertrophy. * Ejection Fraction = 40-45%. * Septal motion is consistent with conduction abnormality. * There is severe inferior wall hypokinesis. * There is moderate to severe posterior wall hypokinesis. Right Ventricle * The right ventricle is normal in size and function. Atria * The left atrium is mildly dilated. * Right atrial size is normal. * No ASD detected; PFO is not assessed. Mitral Valve * There is mild mitral annular calcification. * There is no mitral valve stenosis. * There is trace mitral regurgitation. Tricuspid Valve * The tricuspid valve anatomy is normal. * There is no tricuspid stenosis. * There is trace tricuspid regurgitation. Aortic Valve * The aortic valve is trileaflet. * Aortic valve sclerosis mild, without significant aortic valvular stenosis. * No aortic regurgitation is present. Pulmonic Valve * The pulmonic valve is not well visualized. Great Vessels * The aortic root is normal size. Pericardium/Pleural * There is no pericardial effusion. Great Vessels * Normal inferior vena cava diameter and respiratory variation suggests normal central venous pressure. MMode 2D Measurements and Calculations Ao root diam 3.0 cm Ao root area 7.3 cm\S\2 LA dimension 4.2 cm LA/Ao 1.4 LVAd ap4 43.2 cm\S\2 LVLd ap4 9.6 cm EDV(MOD-sp4) 156.0 ml EDV(sp4-el) 164.5 ml LVAs ap4 29.4 cm\S\2 LVLs ap4 8.7 cm ESV(MOD-sp4) 82.3 ml ESV(sp4-el) 84.9 ml EF(MOD-sp4) 47.2 % EF(sp4-el) 48.4 % LVAd ap2 33.3 cm\S\2 LVLd ap2 8.7 cm EDV(MOD-sp2) 99.5 ml EDV(sp2-el) 108.1 ml LVAs ap2 22.8 cm\S\2 LVLs ap2 7.9 cm ESV(MOD-sp2) 52.4 ml ESV(sp2-el) 56.0 ml EF(MOD-sp2) 47.3 % EF(sp2-el) 48.2 % LVLd %diff -10.48 % EDV(MOD-bp) 128.3 ml LVLs %diff -9.87 % ESV(MOD-bp) 66.4 ml EF(MOD-bp) 48.2 % SV(MOD-sp4) 73.7 ml SI(MOD-sp4) 34.0 ml/m\S\2 SV(MOD-sp2) 47.1 ml SI(MOD-sp2) 21.7 ml/m\S\2 SV(MOD-bp) 61.9 ml SI(MOD-bp) 28.6 ml/m\S\2 SV(sp4-el) 79.5 ml SI(sp4-el) 36.7 ml/m\S\2 SV(sp2-el) 52.2 ml SI(sp2-el) 24.1 ml/m\S\2 Doppler Measurements and Calculations MV E max luis 113.6 cm/sec MV A max luis 86.0 cm/sec MV E/A 1.3 MV dec time 0.19 sec Ao V2 max 117.3 cm/sec Ao max PG 5.5 mmHg Ao max PG (full) 1.1 mmHg LV V1 max PG 4.4 mmHg LV V1 max 104.8 cm/sec
[2017-06-14] MEDS ORDERED: METOPROLOL TARTRATE 25 MG TAB PO ONE (13:00)
[2017-06-14] MEDS ORDERED: ISOSORBIDE MONONITRATE 30 MG TABCR PO ONE (13:00)
--- NOTE | 2017-06-14 14:49 | CARDIOLOGY CONSULTATION ---
DATE OF CONSULTATION: 06/14/2017 DATE OF CONSULTATION: 06/14/2017 PRIMARY CARE PHYSICIAN: Previously Dr. Anguiano. REFERRING: Dr. Ziegler. INDICATIONS: Chest pain and paroxysmal atrial fibrillation. HISTORY OF PRESENT ILLNESS: The patient is a 71-year-old male who per patient and review of records has a history notable for atherosclerotic coronary artery disease with remote LAD myocardial infarction in 1998, status post LAD stenting and second myocardial infarction in 2005 involving the inferior wall distribution receiving stents to the right coronary artery and posterior descending artery at [facility]. Underlying medical problems include hypertension, hyperlipidemia, recently observed left bundle branch block and diabetes mellitus. The patient presents now noting in the setting of recent increase in significant stressors developing symptoms at rest last evening with substernal chest pressure. This is different than his usual angina but was concerning enough the patient took nitroglycerin with some easing of symptoms. He asked to be brought to the Emergency Room for further evaluation, pain recurred in the Emergency Room, he was given an additional nitroglycerin with resolve of complaints. On initial EKG he was found to be in atrial fibrillation with elevated ventricular response rates. He has spontaneously converted to sinus rhythm overnight. His history is notable for stable angina pectoris noted to be manifesting as exertional dyspnea and fatigue but he is still active to a fairly high level workload hunting, walking, working about his home. He is under a dramatic amount of stress this spring and summer. Daughter was murdered with residual custody issues. was recently in the hospital and diagnosed with lung carcinoma. The patient is emotionally distraught by his own description and observation. He denies fevers, chills, sweats, cough, hoarseness, wheeze. Notes or hemoptysis, melena, hematochezia, "quit smoking yesterday" with greater than [id number] history of tobacco use. Notes no acute weight loss or gain. Notes no headache or visual changes. Notes with the recent stressors he had stopped nearly all of his heart medications. REVIEW OF SYSTEMS: As per HPI. ALLERGIES: LISTED VELMA INHIBITORS. MEDICATIONS: Aspirin 81 mg p.o. daily, atorvastatin 40 mg at bedtime, fenofibrate 134 mg at bedtime, Prozac 40 mg at bedtime, insulin 26 and 40 units, isosorbide dinitrate 10 mg at bedtime, metoprolol tartrate 25 mg at bedtime. Otherwise noted, patient was taking few if any of his recent medications. PAST SURGICAL HISTORY: Notable for prior cholecystectomy, coronary interventions as described. FAMILY HISTORY: Positive for heart disease in father in his 80s. SOCIAL HISTORY: The patient is retired. He is a resident of [place]. He is one-half to 2-pack per day smoker, discontinued just prior to hospitalization. Uses no significant alcoholic beverages. PHYSICAL EXAMINATION: VITAL SIGNS: Heart rate is 80, blood pressure is 169/109. HEAD, EYES, EARS, NOSE, AND THROAT EXAMINATION: Normocephalic, atraumatic. Nares without discharge. Throat was clear. NECK: Supple without thyromegaly, lymphadenopathy, JVD or bruit. LUNGS: Clear to auscultation. CARDIOVASCULAR: Regular with a grade 1/6 systolic murmur. There is no diastolic murmur. PMI is nondisplaced. ABDOMEN: Obese, soft, nontender. EXTREMITIES: Without cyanosis or clubbing. There is no peripheral edema. Femoral and distal pulses are 2+/4. There are no femoral bruits. NEUROLOGIC: The patient is alert, answering questions appropriately. DATA: EKG on presentation revealed atrial fibrillation at a rate of 91 with left bundle branch block configuration. EKG this morning, sinus rhythm with first degree AV block, rate 82, persistent left bundle branch block configuration. Echocardiogram by my personal review demonstrates mild left ventricular hypertrophy. There are wall motion abnormalities consistent with conduction abnormalities as well as inferior posterior infarct. Ejection fraction 40-45%, mild left atrial dilatation. LABORATORY STUDIES: Sodium is 138, potassium is 4.0, chloride is 105, bicarb is 26, BUN is 18, creatinine 0.84, glucose was 217. CK and MB fractions are normal. Troponins are elevated on second and third testing 2.12. Cholesterol is 97, HDL was 23. LDL was 36. IMPRESSION: Complex 71-year-old male with history of known longstanding ischemic heart disease dating back to an anterior myocardial infarction in 1998. He has undergone prior coronary intervention left anterior descending and right coronary artery. Most recent intervention in 2005. Carries a history of stable class 2 angina pectoris, hypertension, hyperlipidemia. Notes now presenting with rest symptoms of chest pressure pain consistent with angina in the setting of new onset atrial fibrillation with elevated ventricular response rates. The patient notably been off cardiac medications due to multiple emotional and situational stressors. RECOMMENDATIONS: Discussed options of management with this patient newly exacerbated rest symptoms and mildly elevated troponins. Plan will be initially conservative therapy with continued IV heparin with ultimate plans to convert to full oral anticoagulation given paroxysmal atrial arrhythmias. Will intensify and treat hypertension and underlying cardiac issues increasing metoprolol tartrate to 25 mg twice per day, adding oral isosorbide with likely addition of angiotensin receptor mckayla as well after investigating history of VELMA inhibitor allergy not present on outpatient records. The patient will be kept n.p.o. after midnight to assess clinical response and hospital titration of medications to consider either stress test or if symptoms progress consideration for repeat diagnostic cardiac catheterization. Tobacco cessation urged and enforced. Will follow patient in the hospital.
[2017-06-14] MEDS: ATORVASTATIN 20 MG TAB PO SCH (20:02)
[2017-06-14] MEDS: FLUOXETINE HCL 20 MG CAP PO SCH (20:03)
[2017-06-14] MEDS: METOPROLOL TARTRATE 25 MG TAB PO SCH (20:05)
[2017-06-14] MEDS ORDERED: ISOSORBIDE DINITRATE 10 MG TAB PO SCH (21:00)
[2017-06-14] MEDS ORDERED: METOPROLOL TARTRATE 25 MG TAB PO SCH (21:00)
[2017-06-14] MEDS: ZOLPIDEM TARTRATE 5 MG TAB PO PRN (22:36)
[2017-06-15] VITALS (10 sets, daily range): BP systolic 109–148; BP diastolic 54–77; PULSE 56–70; TEMP 36.4–37.5; O2SAT 93–95; Ht 170.2 cm; Wt 104.9 kg
[2017-06-15 07:15] LABS: PARTIAL THROMBOPLASTIN RATIO 2.1
--- NOTE | 2017-06-15 09:22 | Pharmacy Progress Note ---
Glycemic Control Progress Note Date of Service Jun 15, 2017. Scope Glycemic Pharmacist consulted for glycemic control to write orders per [facility] inpatient glycemic control protocol. Objective Accuchecks BSG (last 24hrs): Test 06/14/17 11:22 06/14/17 16:13 06/14/17 20:37 06/15/17 00:36 Bedside Glucose 175 mg/dl (70-99) 225 mg/dl (70-99) 190 mg/dl (70-99) 201 mg/dl (70-99) Test 06/15/17 05:50 Bedside Glucose 196 mg/dl (70-99) HbA1c: Test 06/15/17 06:45 Hemoglobin A1c 7.8 % (4.5-5.6) H Recent Pertinent Medications The patient is currently receiving: * Basal insulin: Lantus 20 units every 12 hours * Correctional Insulin: Novolog Correction per scale ACHS Goal Range: Low 140 mg/dL - High 180 mg/dL Correction Factor: 20 mg/dL/unit * Prandial insulin: Per carb ratio of 1 unit per 7 grams CHO consumed Outpatient Anti-Diabetic Meds Lantus, pt non-compliant Assessment & Plan ASSESSMENT: * See progress note from 06/14 for more background info, in short: * Pt receiving SQ basal bolus insulin regimen for hyperglycemia secondary to baseline DM (outpatient regimen on hold) * Patient is currently receiving an average of 63 units of insulin per day * 40 units of basal insulin * 23 units of prandial/correctional insulin * BSGs ranging 175 - 248 mg/dl over the past 24hrs * Changes needed to insulin regimen: * AM Fasting BSG = 196 mg/dl. This is in above goal range for patient based on inpatient targets and co-morbidities. Therefore Basal insulin needs increased slightly, pt regimen is already basal heavy so I am titrating this up slowly and patient is likely basal deficient from non-compliance. * Post-prandial BSGs are elevated/BSGs rise throughout the day therefore need to tighten CF/CR * Additional notes / comments: * Patient is NPO this morning per utilization management manager PLAN FOR INPATIENT GLYCEMIC CONTROL: * INCREASE Basal insulin * Lantus 22 units SQ BID * Bolus insulin * NovoLog per scale ACHS or Q6hrs while NPO * Goal Range: Low 110 mg/dL - High 140 mg/dL * TIGHTEN: Correction Factor: 15 mg/dL/unit * TIGHTEN: Nutritional / Prandial insulin per carb ratio of 1 unit per 5 grams CHO consumed RECOMMENDATIONS FOR DISCHARGE: * Unknown insulin needs at this time, but stressing compliance with patient will be most helpful. * Please note that the plan above was derived based on current level of insulin resistance and hospital stress. These recommendations are appropriate for inpatient admission only. Plan of care upon discharge will need to be reassessed to avoid potential outpatient hypo/hyperglycemia. Thank you.
[2017-06-15] MEDS: ASPIRIN 81 MG ECTAB PO SCH (09:28)
[2017-06-15] MEDS: ISOSORBIDE MONONITRATE 30 MG TABCR PO SCH (09:30)
[2017-06-15] MEDS: METOPROLOL TARTRATE 25 MG TAB PO SCH ×2 (09:31→20:52)
[2017-06-15] MEDS: FENOFIBRATE 145 MG TAB PO SCH (09:34)
[2017-06-15] MEDS: NICOTINE 21 MG/24 HR TDSY TD SCH (09:35)
[2017-06-15] MEDS: INSULIN ASPART 100 UNITS/ML 3 ML PEN SC SCH ×4 (09:51→20:50)
[2017-06-15] MEDS: INSULIN GLARGINE SOLOSTAR 100 UNITS/ML 3 ML PEN SC SCH ×2 (09:54→20:57)
--- NOTE | 2017-06-15 10:16 | PROGRESS NOTE ---
DATE: 06/15/2017 The patient seen and examined. Chart, medications, telemetry reviewed. SUBJECTIVE: The patient denies any acute complaints, fevers, chills, productive cough. Notes no further chest pain overnight. Does note some breathlessness when ambulatory in the room and is tolerating current adjustments in medications. Notes no orthopnea, PND or peripheral edema. He has no sense of tachypalpitations. He is anticoagulated with IV heparin. OBJECTIVE: VITAL SIGNS: Heart rate is 60. Blood pressure is 138/66. HEENT: Normocephalic, atraumatic. Nares without discharge. Throat was clear. NECK: Supple without thyromegaly or lymphadenopathy. There are no carotid bruits. LUNGS: Clear to auscultation. CARDIOVASCULAR: Regular with a less than grade 1/6 systolic murmur. ABDOMEN: Soft, nontender. EXTREMITIES: Without cyanosis or clubbing. Distal pulses are 1+/4. There is no abdominal or femoral bruits audible. DATA: EKG reveals sinus rhythm with first degree AV block at a rate 67. Telemetry reveals no further atrial arrhythmias. IMPRESSION: A 71-year-old male with history of known coronary disease with prior myocardial infarction and coronary interventions left anterior distribution in 1990, right coronary artery distribution 2005, presents now with symptoms of increasing angina in a setting of acute stressors in the absence of cardiac medications. Troponins are mildly elevated. Medications have been reinstituted with good tolerance. He did have transient atrial fibrillation on presentation with spontaneous return to sinus rhythm. RECOMMENDATIONS: We will continue current therapies. Continue IV heparin with plans to transition to oral anticoagulant. The patient will be referred for stress echocardiography today. If good tolerance, we will proceed with medical management. If any abnormalities, we will have low threshold for proceeding to diagnostic cardiac catheterization.
[2017-06-15] MEDS ORDERED: PERFLUTREN LIPID MICROSPHERE (DEFINITY) IV ONE (11:47)
[2017-06-15] MEDS: HEPARIN 25,000 UNIT/500ML D5W 500 ML IV PRN (13:04)
--- NOTE | 2017-06-15 13:51 | Progress Note ---
Medicine Progress Note Date & Time of Visit: Jun 15, 2017 at 13:51. Subjective s/p stress echo today seen having lunch in better spirits states he feels fine today no recurrence of chest pain denies dizziness, dyspnea, palpitations ambulating with no problems Objective Last 8 Hrs Date Time Temp Pulse Resp B/P (MAP) Pulse Ox O2 Delivery O2 Flow Rate FiO2 06/15/17 12:00 Room Air 06/15/17 11:19 36.8 56 12 133/75 (94) 95 Room Air 06/15/17 10:07 37.5 64 16 135/66 (89) 94 Room Air 63 148/67 (94) 65 132/77 (95) 06/15/17 09:21 94 Room Air 06/15/17 07:50 Room Air Physical Exam: General- oriented x 3, not in distress, speaks in sentences with no effort Eyes- anicteric Neck- supple, no JVD Lungs- clear breath sounds bilaterally Heart- regular rhythm; no murmur, normal rate Abdomen- normal bowel sounds, soft, nontender Extremities- no pretibial edema, no calf tenderness Neuro- alert, oriented x 3; no gross focal deficits Skin- warm & dry Laboratory Results: Last 24 Hours Test 06/14/17 16:13 06/14/17 20:37 06/15/17 00:36 06/15/17 05:50 Bedside Glucose 225 mg/dl 190 mg/dl 201 mg/dl 196 mg/dl Test 06/15/17 06:44 06/15/17 06:45 06/15/17 11:04 06/15/17 12:01 Activated Partial Thromboplast Time 54.8 SECONDS Partial Thromboplastin Ratio 2.1 Estimated Average Glucose 177 mg/dl Hemoglobin A1c 7.8 % Bedside Glucose 183 mg/dl 201 mg/dl Assessment & Plan 71 yo diabetic smoker with known heart disease s/p stents presents with an episode of chest pain, new onset atrial fibrillation and worsening MOSQUEDA over 6 months. 1. Substernal chest pain History of CAD - Metoprolol increased, Imdur added - 06/15/17: s/p Stress Echo - chest pain resolved tolerating medications well so far possible Cardiac Cath in AM 2. CAD-s/p stents - continue Metoprolol, Imdur, Aspirin, Atorvastatin 3. New onset atrial fibrillation. - Metoprolol increased on Heparin - HR controlled 4. Depression - has been having several stressors lately states he is able to cope with his family so far - denies suicidal ideations -cont Prozac and Ativan PRN 5. DMII - A1c 7.8 - Pharmacy on board on Lantus and ISS 6. LBBB-chronic on prior EKG 7. Psoriasis-controlled only with topical steroids PRN. DVT proph: Heparin drip Full Code Disposition pending, cardiac cath in AM Current Inpatient Medications: Current Inpatient Medications Medications (Trade) Dose Ordered Sig/Mariella Route Start Time Stop Time Status Last Admin Dose Admin Nitroglycerin (Nitrostat Tab) 0.4 mg UD PRN SL 06/14/17 01:00 07/14/17 00:59 06/14/17 06:00 0.4 MG Morphine Sulfate (MoRPHine SULFATE INJ) 2 mg Q30M PRN IV 06/14/17 01:00 06/28/17 00:59 Aspirin (Ecotrin Tab) 81 mg QAM PO 06/14/17 09:00 07/14/17 08:59 06/15/17 09:28 81 MG Heparin Sodium/ Dextrose 500 ml @ 30 mls/hr [id number] PRN IV 06/14/17 03:15 07/14/17 03:14 06/15/17 13:04 30 MLS/HR Miscellaneous (Iv Fluids Completed) 1 ea PRN PRN N/A 06/14/17 03:15 06/14/18 03:14 Atorvastatin Calcium (Lipitor Tab) 40 mg HS PO 06/14/17 21:00 07/14/17 20:59 06/14/17 20:02 40 MG Fluoxetine HCl (Prozac Cap) 40 mg HS PO 06/14/17 21:00 07/14/17 20:59 06/14/17 20:03 40 MG Fenofibrate (Tricor Tab) 145 mg QAM PO 06/14/17 09:00 07/14/17 08:59 06/15/17 09:34 145 MG Insulin Aspart (novoLOG ASPART) SLIDING SCALE If C... ACHS SC 06/14/17 06:30 07/14/17 06:29 06/15/17 13:25 11 UNITS Glucose (Glucose 40% Gel) 15-30 GRAMS 15 GRAMS... UD PRN PO 06/14/17 04:00 07/14/17 03:59 Glucose (Glucose Chew Tab) 4-8 Tablets 4 Tabl... UD PRN PO 06/14/17 04:00 07/14/17 03:59 Dextrose (Dextrose 50% 50ML Syringe) 25-50ML OF 50% DW IV FOR... UD PRN IV 06/14/17 04:00 07/14/17 03:59 Glucagon (Glucagon Inj) 1 mg UD PRN SQ 06/14/17 04:00 07/14/17 03:59 Nicotine (Nicoderm Cq 21MG Patch) 1 patch Q24H TD 06/14/17 09:00 07/14/17 08:59 06/15/17 09:35 1 PATCH Miscellaneous (Remove Nicoderm Patch) 1 ea DAILY@2100 N/A 06/14/17 21:00 07/14/17 20:59 06/14/17 20:06 1 EA Miscellaneous Information (Consult Glycemic Management Pharmacy) 1 ea UD PRN N/A 06/14/17 10:43 07/14/17 10:42 Metoprolol Tartrate (Lopressor Tab) 25 mg BID PO 06/14/17 21:00 07/14/17 20:59 06/15/17 09:31 25 MG Isosorbide Mononitrate (Imdur Ext Rel Tab) 30 mg QAM PO 06/15/17 09:00 07/15/17 08:59 06/15/17 09:30 30 MG Zolpidem Tartrate (Ambien Tab) 5 mg HS PRN PO 06/14/17 21:30 07/14/17 21:29 06/14/17 22:36 5 MG Insulin Glargine (Lantus Solostar Pen) 22 units Q12 SC 06/15/17 09:00 07/15/17 08:59 06/15/17 09:54 22 UNITS
[2017-06-15] MEDS ORDERED: DC ALL PREVIOUSLY ORDERED DIABETES MEDS ONE (14:00)
--- NOTE | 2017-06-15 14:05 | EXERCISE STRESS ECHO ---
*NOTICE TO RECEIVING DEMOCRAT AGENCY This information is strictly Confidential and protected under [place] law. [place] law prohibits you from making any further disclosure of this information unless further disclosure is expressly permitted by the written consent of the person to whom it pertains or is authorized by law. A general authorization for the release of medical or other information is not sufficient for this purpose. Hospital accepts no responsibility if the information is made available to any other person, INCLUDING THE PATIENT. Interpretation Summary * Name: ELIZABETH ARMSTRONG Study Date: 06/15/2017 11:11 AM BP: 110/61 mmHg * Patient Location: [facility]\S\N275\S\1 HR: 55 * : 1945 (M/d/yyyy) Gender: Male Height: 67 in * Age: 71 yrs Ethnicity: [place] Weight: 232 lb * Ordering Physician: Wilber Bermeo * Referring Physician: Self, Referred * Performed By: Joy Kerr RDCS * * Reason For Study: CHEST PAIN * BSA: 2.2 m2 * With stress, overall LV function fails to improve and septal and lateral bloom appear to worsen ait low heart rate and workload. * Exercise capacity is below average. * _ workload achieved. * Abnormal resting wall motion consistent with old infarction. New stress-induced wall motion abnormalities noted during the study consistent with ischemia. Procedure Details * ECHOEX, CPT #81383 * A contrast injection of Definity was performed to improve assessment of LV function. * Contrast was injected into an intravenous site in the right arm. * One vial of Definity ultrasound contrast was diluted in normal saline to a total volume of 10 ml. A total of '4' ml of solution was administered during imaging. * Lot # [id number] of Definity utilized for procedure. * Expiration date JUN 28. * The attending nurse who injected the contrast agent was NATE DIXON RN. Left Ventricle * Septal motion is consistent with conduction abnormality. There is moderate to severe posterior wall hypokinesis. There is severe inferior wall hypokinesis. Ejection Fraction = 40-45%. Stress Parameters * The baseline electrocardiogram was abnormal. It displayed left bundle branch block. * No arrhythmia were noted with stress. * The stress portion of this study was personally supervised by the undersigned interpreting physician. * Rest heart rate was '55' BPM. * Rest blood pressure was '110/61' * Maximum heart rate achieved was 80 bpm. * Maximum heart rate was 53 % of maximum age-predicted heart rate. * Maximum blood pressure was '141/77' * Total exercise time was '2:59' * Maximum exercise MET level achieved was '4.60' METS * Maximum treadmill speed was '1.70' miles per hour. * Maximum treadmill elevation was '10.00'% grade. * Exercise was terminated due to 'FATIGUE' * The patient exhibited dyspnea during exercise.
--- NOTE | 2017-06-15 14:32 | CARDIOLOGY PROGRESS NOTE ---
DATE: 06/15/2017 The patient was seen and examined. Chart, medications, and telemetry were reviewed. SUBJECTIVE: The patient noted no symptoms overnight, but was referred due to complaints of exertional chest pain and discomfort. Stress echocardiography today demonstrates very low exercise tolerance. The patient is stopping at 3 minutes on a Vineet protocol and heart rate of 75 with marked dyspnea. 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 RECOMMENDATIONS: The patient will be referred for diagnostic cardiac catheterization in a.m. N.p.o. after midnight. IV heparin will be continued given current complaints, elevated troponin and transient atrial fibrillation observed on presentation. The patient understands and is agreeable to plan. RMIMA
[2017-06-15] MEDS ORDERED: ALUMINUM/MAGNESIUM SUSP 30 ML UDC PO STA (20:22)
[2017-06-15] MEDS ORDERED: CALCIUM CARBONATE 500 MG CHEWABLE PO PRN (20:30)
[2017-06-15] MEDS: ATORVASTATIN 20 MG TAB PO SCH (20:52)
[2017-06-15] MEDS: FLUOXETINE HCL 20 MG CAP PO SCH (20:53)
[2017-06-15] MEDS: ZOLPIDEM TARTRATE 5 MG TAB PO PRN (22:59)
[2017-06-16] VITALS (14 sets, daily range): BP systolic 98–153; BP diastolic 44–84; PULSE 52–73; TEMP 36.8–37.1; O2SAT 93–96
[2017-06-16] MEDS ORDERED: SODIUM CHLORIDE 0.9% 1000ML 1,000 ML IV SCH
[2017-06-16] MEDS: HEPARIN 25,000 UNIT/500ML D5W 500 ML IV PRN ×2 (04:31→14:18)
[2017-06-16] MEDS: INSULIN ASPART 100 UNITS/ML 3 ML PEN SC SCH ×3 (06:30→17:25)
[2017-06-16 06:47] LABS: HEMATOCRIT 43.4 % (42-52); MEAN CELL VOLUME 92.7 fL (80-100); MEAN CORPUSCULAR HEMOGLOBIN 31.6 pg (25-34); MEAN CORPUSCULAR HGB CONC 34.1 g/dl (32-36); MEAN PLATELET VOLUME 10.5 fL (7.4-10.4); PLATELET COUNT 286 K/uL (130-400); RED BLOOD COUNT 4.68 M/uL (4.7-6.1); WHITE BLOOD COUNT 11.22 K/uL (4.8-10.8)
[2017-06-16] MEDS: INSULIN GLARGINE SOLOSTAR 100 UNITS/ML 3 ML PEN SC SCH (06:59)
[2017-06-16 07:05] LABS: PARTIAL THROMBOPLASTIN RATIO 1.9
--- NOTE | 2017-06-16 07:40 | Clinical Documentation Query ---
CLINICAL DOCUMENTATION QUERY Dr. CORDOVA, In your clinical opinion is this patient being managed for: ( ) NSTEMI ( ) Not Agree ( ) Other explanation of clinical findings (Please Explain) ( ) Unable to determine (Please Define) ( ) Need to Discuss The medical record reflects the following clinical findings, treatment, and risk factors. Clinical Indicators: 71 yo male presenting with chest pain/feeling of doom. Trops <0.015/0.097/0.126. Stress ECHO showed demonstrates very low exercise tolerance. 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 Treatment: IV heparin, tele monitoring, cardiology consult, ECHO and stress ECHO, metoprolol increase, add imdur, pending cardiac cath, ASA, NTG sl Risk Factors:age, hx TN's, CAD, HTN, DMII, COPD, medical regimen noncompliance Please clarify and document your clinical opinion in the progress notes and discharge summary. Terms such as "probable", "suspected", "likely", "questionable", "possible", or "still to be ruled out" are acceptable. IF IN AGREEMENT, YOU MUST DOCUMENT ABOVE DIAGNOSTIC STATEMENT IN DAILY PROGRESS NOTES AND DISCHARGE SUMMARY. This document is not part of the patient's record. Thank You, Emma Valerio RN [phone]
[2017-06-16] MEDS: FENOFIBRATE 145 MG TAB PO SCH (07:57)
[2017-06-16] MEDS: METOPROLOL TARTRATE 25 MG TAB PO SCH (07:57)
[2017-06-16] MEDS: ASPIRIN 81 MG ECTAB PO SCH (07:57)
[2017-06-16] MEDS: NICOTINE 21 MG/24 HR TDSY TD SCH (07:58)
[2017-06-16] MEDS: ISOSORBIDE MONONITRATE 30 MG TABCR PO SCH (07:58)
[2017-06-16] MEDS ORDERED: NiCARDipine HCL INJ 2.5 MG/ML 10 ML AMP ONE (10:14)
[2017-06-16] MEDS ORDERED: HEPARIN SOD (PORCINE) 1000 UNIT/ML 10 ML VIAL ONE (10:14)
[2017-06-16] MEDS ORDERED: MIDAZOLAM HCL 1 MG/ML 2ML VIAL ONE (10:15)
[2017-06-16] MEDS ORDERED: FENTANYL CITRATE INJ 50 MCG/1 ML 2 ML VIAL ONE (10:15)
[2017-06-16] MEDS ORDERED: NITROGLYCERIN/D5W 100MCG/ML 20ML SYR ONE (10:17)
--- NOTE | 2017-06-16 10:31 | Progress Note ---
Medicine Progress Note Date & Time of Visit: Jun 16, 2017 at 10:30. Subjective evaluated in AM prior to Cardiac Cath in good spirits, Nicol at bedside states he feels fine, chest pain free, denies dyspnea, palpitations, dizziness, nausea no other symptoms re-evaluated after lunch s/p Cardiac Cath oriented, alert, comfortable denies chest pain or any other symptoms explained findings of cath and the need to be transferred to [facility] for further care patient and family were understanding and agreeable Objective Last 8 Hrs Date Time Temp Pulse Resp B/P (MAP) Pulse Ox O2 Delivery O2 Flow Rate FiO2 06/16/17 08:00 Room Air 06/16/17 07:13 36.8 63 20 153/76 (101) 94 Room Air 06/16/17 04:50 36.9 68 18 121/49 (73) 94 Room Air 06/16/17 04:00 93 Room Air Physical Exam: General- oriented x 3, not in distress, speaks in sentences with no effort Eyes- anicteric Neck- no JVD Lungs- clear breath sounds bilaterally, no rales/wheezes Heart- regular rhythm; no murmur, normal rate Abdomen- normal bowel sounds, soft, nontender Extremities- no pretibial edema, no calf tenderness Neuro- alert, oriented x 3; no gross focal deficits Skin- warm & dry Laboratory Results: Last 24 Hours Test 06/15/17 11:04 06/15/17 12:01 06/15/17 17:29 06/15/17 20:00 Bedside Glucose 183 mg/dl 201 mg/dl 199 mg/dl 133 mg/dl Test 06/15/17 23:44 06/16/17 05:55 06/16/17 06:21 Bedside Glucose 201 mg/dl 200 mg/dl White Blood Count 11.22 K/uL Red Blood Count 4.68 M/uL Hemoglobin 14.8 g/dL Hematocrit 43.4 % Mean Corpuscular Volume 92.7 fL Mean Corpuscular Hemoglobin 31.6 pg Mean Corpuscular Hemoglobin Concent 34.1 g/dl RDW Standard Deviation 42.7 fL RDW Coefficient of Variation 12.6 % Platelet Count 286 K/uL Mean Platelet Volume 10.5 fL Activated Partial Thromboplast Time 50.3 SECONDS Partial Thromboplastin Ratio 1.9 Assessment & Plan 71 yo diabetic smoker with known heart disease s/p stents presents with an episode of chest pain, new onset atrial fibrillation and worsening MOSQUEDA over 6 months. 1. Substernal chest pain History of CAD - Metoprolol increased, Imdur added patient remained chest pain free since - 06/15/17: s/p Stress Echo * With stress, overall LV function fails to improve and septal and lateral bloom appear to worsen ait low heart rate and workload. * Exercise capacity is below average. * _ workload achieved. * Abnormal resting wall motion consistent with old infarction. New stress- induced wall motion abnormalities noted during the study consistent with ischemia. - 06/16/17 s/p Cardiac Cath Right dominant coronary anatomy LM ostial >50% with catheter damping on engagement 40 % distal extending into LAD,CX Ramus LAD 70% origin LCX > 50% origin Ramus large,diffuse 70% prox RCA 100% - [employer] Specialist Dr. Bermeo recommends transfer to [facility] for CABG 2. CAD-s/p stents - continue Metoprolol, Imdur, Aspirin, Atorvastatin 3. New onset atrial fibrillation. - Metoprolol increased maintained on Heparin - HR controlled 4. Depression - has been having several stressors lately states he is able to cope with his family so far - denies suicidal ideations - cont Prozac and Ativan PRN 5. DMII - A1c 7.8 - Pharmacy on board on Lantus and ISS 6. LBBB-chronic on prior EKG 7. Psoriasis-controlled only with topical steroids PRN. DVT proph: Heparin drip Full Code Disposition transfer to [facility] Current Inpatient Medications: Current Inpatient Medications Medications (Trade) Dose Ordered Sig/Mariella Route Start Time Stop Time Status Last Admin Dose Admin Nitroglycerin (Nitrostat Tab) 0.4 mg UD PRN SL 06/14/17 01:00 07/14/17 00:59 06/14/17 06:00 0.4 MG Morphine Sulfate (MoRPHine SULFATE INJ) 2 mg Q30M PRN IV 06/14/17 01:00 06/28/17 00:59 Aspirin (Ecotrin Tab) 81 mg QAM PO 06/14/17 09:00 07/14/17 08:59 06/16/17 07:57 81 MG Heparin Sodium/ Dextrose 500 ml @ 30 mls/hr [id number] PRN IV 06/14/17 03:15 07/14/17 03:14 06/16/17 04:31 30 MLS/HR Miscellaneous (Iv Fluids Completed) 1 ea PRN PRN N/A 06/14/17 03:15 06/14/18 03:14 Atorvastatin Calcium (Lipitor Tab) 40 mg HS PO 06/14/17 21:00 07/14/17 20:59 06/15/17 20:52 40 MG Fluoxetine HCl (Prozac Cap) 40 mg HS PO 06/14/17 21:00 07/14/17 20:59 06/15/17 20:53 40 MG Fenofibrate (Tricor Tab) 145 mg QAM PO 06/14/17 09:00 07/14/17 08:59 06/16/17 07:57 145 MG Insulin Aspart (novoLOG ASPART) SLIDING SCALE If C... ACHS SC 06/14/17 06:30 07/14/17 06:29 06/15/17 17:33 15 UNITS Glucose (Glucose 40% Gel) 15-30 GRAMS 15 GRAMS... UD PRN PO 06/14/17 04:00 07/14/17 03:59 Glucose (Glucose Chew Tab) 4-8 Tablets 4 Tabl... UD PRN PO 06/14/17 04:00 07/14/17 03:59 Dextrose (Dextrose 50% 50ML Syringe) 25-50ML OF 50% DW IV FOR... UD PRN IV 06/14/17 04:00 07/14/17 03:59 Glucagon (Glucagon Inj) 1 mg UD PRN SQ 06/14/17 04:00 07/14/17 03:59 Nicotine (Nicoderm Cq 21MG Patch) 1 patch Q24H TD 06/14/17 09:00 07/14/17 08:59 06/16/17 07:58 1 PATCH Miscellaneous (Remove Nicoderm Patch) 1 ea DAILY@2100 N/A 06/14/17 21:00 07/14/17 20:59 06/14/17 20:06 1 EA Miscellaneous Information (Consult Glycemic Management Pharmacy) 1 ea UD PRN N/A 06/14/17 10:43 07/14/17 10:42 Metoprolol Tartrate (Lopressor Tab) 25 mg BID PO 06/14/17 21:00 07/14/17 20:59 06/16/17 07:57 25 MG Isosorbide Mononitrate (Imdur Ext Rel Tab) 30 mg QAM PO 06/15/17 09:00 07/15/17 08:59 06/16/17 07:58 30 MG Zolpidem Tartrate (Ambien Tab) 5 mg HS PRN PO 06/14/17 21:30 07/14/17 21:29 06/15/17 22:59 5 MG Insulin Glargine (Lantus Solostar Pen) 22 units Q12 SC 06/15/17 09:00 07/15/17 08:59 06/15/17 20:57 22 UNITS Sodium Chloride 1,000 ml @ 52.8 mls/hr [id number] IV 06/16/17 00:00 07/16/17 00:00 06/15/17 23:42 52.8 MLS/HR Calcium Carbonate (Tums Chew Tab) 500 mg QID PRN PO 06/15/17 20:30 07/15/17 20:29
--- NOTE | 2017-06-16 11:40 | [facility] Post Operative Brief Note ---
Preliminary Procedure Note Procedure Date Jun 16, 2017. Pre-Procedure Diagnosis Non STEMI, Acute Coronary Syndrome, Positive Stress Test AUC Score 9 Post-Procedure Diagnosis Severe CAD Procedure(s) Performed Coronary Angiography Drapery Hand Dr. Wilber Bermeo Subsurface Augmentee Operator(s) Jose Antonio Andrade Estimated Blood Loss <15cc Medication(s) Fentanyl (12.5 mcg IV), Nicardipine (250 mcg intaarterial after sheath insertion ), Versed (1 mg IV), Lidocaine 1% (local infiltration) Preliminary Findings Right dominant coronary anatomy LM ostial >50% with catheter damping on engagement 40 % distal extending into LAD,CX Ramus LAD 70% origin LCX > 50% origin Ramus large,diffuse 70% prox RCA 100% Recommendations CABG Specimens None Anesthesia Start 10:56 End 11:22 Monitor Usama Vargas Procedural Complication(s) None Disposition PCU
[2017-06-16] MEDS ORDERED: INSULIN GLARGINE SOLOSTAR 100 UNITS/ML 3 ML PEN SC ONE (12:45)
[2017-06-16] MEDS ORDERED: NURSING VERBAL MED ORDER ONE (13:30)
[2017-06-16] MEDS ORDERED: IMDSR30 PO (14:08)
[2017-06-16] MEDS ORDERED: LPR25 PO (14:08)
--- NOTE | 2017-06-16 14:12 | Discharge Instructions ---
Discharge Instructions Date of Service Jun 16, 2017. Admission Reason for Admission: Substernal Chest Pain Discharge Discharge Diagnosis / Problem: CHEST PAIN, CORONARY ARTERY DISEASE Discharge Goals Goal(s): Diagnostic testing, Therapeutic intervention Activity Recommendations Activity Level: Ambulates in room . Additional Information Patient informed of condition: Yes Advance Directives: No (UNKNOWN) DNR: No (PATIENT IS A FULL CODE) Level of Care: Other ([facility]) Communicable Disease: No Prognosis: Other (GUARDED) Instructions / Follow-Up Instructions / Follow-Up PLEASE REFER TO [facility] DISCHARGE SUMMARY. Current Hospital Diet Patient's current hospital diet: AHA Diet (Heart Healthy), Diabetes Type 2 Diet Discharge Diet Recommended Diet: AHA Diet (Heart Healthy), Diabetes Type 2 Diet Procedures Procedures Performed: STRESS ECHO, CARDIAC CATH Pending Studies Studies pending at discharge: yes List of pending studies: FURTHER EVALUATION AND MANAGEMENT AT [facility] Physician Orders On Transfer Special Precautions: PLEASE REFER TO [facility]OS[facility] DISCHARGE SUMMARY. Laboratory Results Hemoglobin A1c Test 06/15/17 06:45 Range/Units Estimated Average Glucose 177 mg/dl Hemoglobin A1c 7.8 H 4.5-5.6 % Lipid Panel Test 06/14/17 04:00 Range/Units Triglycerides Level 191 H 0-150 mg/dl Cholesterol Level 97 0-200 mg/dl HDL Cholesterol 23 mg/dl Cholesterol/HDL Ratio 4.2 LDL Cholesterol, Calculated 36 mg/dl Medical Emergencies . Who to Call and When: Medical Emergencies: If at any time you feel your situation is an emergency, please call 911 immediately. . Non-Emergent Contact Non-Emergency issues call your: Primary Care Provider . . "Provider Documentation" section prepared by Munir Ziegler. . Core Measure Problem Core Measures: None
--- NOTE | 2017-06-16 14:13 | Discharge Summary ---
Discharge Summary Date of Service Jun 16, 2017. Discharge Summary Admission Date: Jun 15, 2017 at 13:51 Discharge Date: Jun 16, 2017 Discharge Disposition: Acute care facility Principal Diagnosis: Substernal chest pain , CAD Secondary Diagnoses/Problems: Please refer to hospital course below Procedures: Stress Echo, Cardiac Cath Consultations: Dr. Bermeo- Cutter Operator Pending Studies/Follow-Up: Please refer to hospital course below. Medication Reconciliation New Medications: Isosorbide Mononitrate (Isosorbide Mononitrate ER) 30 Mg Tabcr 30 MG PO QAM for 30 Days Metoprolol Tartrate (Lopressor) 25 Mg Tab 25 MG PO BID for 30 Days, #60 TAB Continued Medications: Aspirin (Aspirin Ec) 81 Mg Tab 81 MG PO HS Atorvastatin (Lipitor) 40 Mg Tab 40 MG PO HS, TAB Fenofibrate (Tricor ) 134 Mg Cap 134 MG PO HS, CAP Fluoxetine (Prozac) 40 Mg Cap 40 MG PO HS, CAP Insulin Aspart (Novolog Flexpen) 100 Units/Ml Inj 26 UNITS SC TIDM Insulin Glargine (Lantus Solostar) 100 Unit/Ml Inj 40 UNITS SC HS, PEN Nitroglycerin (Nitrostat) 0.4 Mg Tab 0.4 MG UT UD PRN for Chest Pain, BTL Discontinued Medications: Isosorbide Dinitrate (Isordil) 10 Mg Tab 10 MG PO HS, TAB Metoprolol Tartrate (Lopressor) (Lopressor) 25 Mg Tab 25 MG PO HS, TAB Admission Information HPI (per Admitting provider): 71 yo diabetic male with known heart disease s/p SC with 4 stents placed over 10 years ago presents with chest pain today. He states that 1 hour after dinner he developed substernal chest pain that came on at rest and made him feel a "sense of doom" as though the "world were closing in on him." He describes this as a "feeling I've never had before" This pain was associated with diaphoresis and some palpitations; he denies associated lightheadedness, nausea or SOB. He does not recall a history of palpitations prior to this but states that he did feel some chest pressure for 30-60 minutes that occurred while he was watching TV 3 weeks ago. He was less concerned about this episode , however, as he knew he had just taken insulin and he thought he just had low blood sugar. He denies a h/o afib and this is not found in his record. He states that he has noticeable dyspnea on exertion over the past 6 months but the changes are subtle and not limiting him in his lifestyle which is very active at baseline consisting of hunting deer and bear including skinning/ cleaning the animals. He is going through a very hard time over the last few months.also. His daughter was brutally murdered, his granddaughter was hurt as a bystander and he and his are fighting for custody of her. Then most recently, his was in the hospital for two weeks and diagnosed with lung cancer; she is starting on her chemotherapy regimen soon. He is still an active smoker who states that he has smoked for 50 years and he is down to 1 ppd instead of 2. He is requesting a nicotine patch. He is using snuff on the side. He denies having seen a quality management nurse in 10 years. He reports noncompliance with his medications including his insulin. Physical Exam (per Admitting): General Appearance: no apparent distress, + obese Head: normocephalic, atraumatic Eyes: normal inspection, PERRL, sclerae normal ENT: hearing grossly normal, pharynx normal Neck: supple, no adenopathy, trachea midline Respiratory/Chest: chest non-tender, lungs clear, normal breath sounds, no respiratory distress, no accessory muscle use Cardiovascular: regular rate, rhythm, no edema, no gallop, no JVD, no murmur , normal peripheral pulses Abdomen/GI: normal bowel sounds, non tender, soft Back: normal inspection Extremities/Musculoskelatal: normal inspection, no calf tenderness, normal range of motion Neurologic/Psych: no motor/sensory deficits, alert, normal mood/affect, oriented x 3 Skin: normal color, warm/dry, no rash, + pertinent finding (tattooes across back) Hospital Course 71 yo diabetic smoker with known heart disease s/p stents presents with an episode of chest pain, new onset atrial fibrillation and worsening MOSQUEDA over 6 months. 1. Substernal chest pain, CAD - Metoprolol increased, Imdur added patient remained chest pain free since - 06/15/17: s/p Stress Echo * With stress, overall LV function fails to improve and septal and lateral bloom appear to worsen ait low heart rate and workload. * Exercise capacity is below average. * _ workload achieved. * Abnormal resting wall motion consistent with old infarction. New stress- induced wall motion abnormalities noted during the study consistent with ischemia. - 06/16/17 s/p Cardiac Cath Right dominant coronary anatomy LM ostial >50% with catheter damping on engagement 40 % distal extending into LAD,CX Ramus LAD 70% origin LCX > 50% origin Ramus large,diffuse 70% prox RCA 100% - Cutter Operator Dr. Bermeo recommends transfer to [facility] for CABG 2. CAD-s/p stents - continue Metoprolol, Imdur, Aspirin, Atorvastatin 3. New onset atrial fibrillation. - Metoprolol increased maintained on Heparin - HR controlled 4. Depression - has been having several stressors lately states he is able to cope with his family so far - denies suicidal ideations - cont Prozac and Ativan PRN 5. DMII - A1c 7.8 - Pharmacy on board on Lantus and ISS 6. LBBB-chronic on prior EKG 7. Psoriasis-controlled only with topical steroids PRN. DVT proph: Heparin drip Full Code Disposition transfer to [facility] Total time spent on discharge = 45 minutes This includes examination of the patient, discharge planning, medication reconciliation, and communication with other providers. Discharge Instructions Discharge Instructions Date of Service Jun 16, 2017. Admission Reason for Admission: Substernal Chest Pain Discharge Discharge Diagnosis / Problem: CHEST PAIN, CORONARY ARTERY DISEASE Discharge Goals Goal(s): Diagnostic testing, Therapeutic intervention Activity Recommendations Activity Level: Ambulates in room . Additional Information Patient informed of condition: Yes Advance Directives: No (UNKNOWN) DNR: No (PATIENT IS A FULL CODE) Level of Care: Other ([facility]) Communicable Disease: No Prognosis: Other (GUARDED) Instructions / Follow-Up Instructions / Follow-Up PLEASE REFER TO [facility]ING [facility] DISCHARGE SUMMARY. Current Hospital Diet Patient's current hospital diet: AHA Diet (Heart Healthy), Diabetes Type 2 Diet Discharge Diet Recommended Diet: AHA Diet (Heart Healthy), Diabetes Type 2 Diet Procedures Procedures Performed: STRESS ECHO, CARDIAC CATH Pending Studies Studies pending at discharge: yes List of pending studies: FURTHER EVALUATION AND MANAGEMENT AT [facility] Physician Orders On Transfer Special Precautions: PLEASE REFER TO [facility]ANYING HOSPITAL DISCHARGE SUMMARY.
--- NOTE | 2017-06-16 15:18 | CARDIOLOGY PROGRESS NOTE ---
DATE: 06/16/2017 DATE: 06/16/2017 SUBJECTIVE: The patient seen post-cardiac catheterization procedure and findings discussed in detail with the patient. Study demonstrated severe multivessel disease including ostial left main stenosis with catheter dampening on engagement and chronic right coronary occlusion with collateral fill, left main disease extending into the origin of the left anterior descending, left circumflex, and a large ramus intermedius as well as a large diagonal branch all vessels narrowed between 50 and 70%. The patient has had no further symptoms or discomfort and tolerated the procedure relatively well. RECOMMENDATIONS: We will refer to a tertiary care center to [facility] for anticipated cardiovascular surgery and heparin infusion will be resumed. The patient is agreeable to plan discussed in detail with patient and daughter.
--- NOTE | 2017-06-17 03:56 | CARDIAC CATH REPORT ---
INDICATIONS: Non-ST segment elevation myocardial infarction, abnormal stress testing. PROCEDURE: Coronary angiography. BRIEF CARDIAC HISTORY: The patient is a 71-year-old male whose history is notable for prior coronary intervention of the right coronary artery in 2005, receiving stents to the right coronary artery and posterior descending artery and remote history of coronary intervention of left anterior descending in 1998. The patient presented with non-ST segment elevation myocardial infarction, off cardiac medications, with transient atrial fibrillation. Stress testing and evaluation on medical therapy revealed significant stress-induced wall motion abnormalities and LV systolic function decline. He is referred for cardiac catheterization, class 3+ angina pectoris with exertional dyspnea, anginal equivalent. No signs of heart failure. Abnormal stress testing, markedly reduced heart rate and exercise capacity. ACCESS: Right radial artery. CATHETERS: A 6-Kittitian long glide sheath, 5-Kittitian brachial 3.5, 5-Kittitian JL 3.5. CONTRAST: Nonionic x94 mL. IV FLUIDS: Normal saline at 70 mL. SEDATION: Start time 10:56, end time 11:22. MONITORING NURSE: Usama Vargas RN. MEDICATIONS: The patient received local infiltration of access site with 1% lidocaine. After arterial sheath was inserted, the patient received 250 mcg of nicardipine intra-arterially. The patient for sedation received Versed 1 mg and fentanyl 12.5 mcg IV. RESULTS: CORONARY ANGIOGRAPHY: Right dominant coronaries are noted LEFT MAIN: Left main is long and diffusely diseased. There is a 70% ostial narrowing with dampening of the cardiac catheter, 5-Kittitian on all engagements. There is distal disease in the left main as well, narrowing it by 50% with disease extending from the left main into the origins of the left anterior descending, ramus intermedius and left circumflex. LEFT ANTERIOR DESCENDING: Left anterior descending is moderately large in caliber, type 3 in distribution. Disease in the left main extends in its origin narrowing it by 70%. RAMUS INTERMEDIUS: This is a moderately large-caliber vessel, it gives rise to a diagonal branch shortly after its origin and continues to trifurcate at its termination. Its origin is diffusely diseased with disease extending into the diagonal as well, both narrowed by 50-70%. LEFT CIRCUMFLEX: Left circumflex consists of a large marginal branch. Ostial portions of the circumflex are also narrowed as described by 70%. RIGHT CORONARY ARTERY: The right coronary is dominant in distribution, gives rise to 2 right ventricular branches and a sinoatrial branch shortly after its origin. The vessel was seen to have extensive stenting in its proximal third as well as in its distal portion. The vessel itself was occluded at its proximal third with an area of prior stenting 100%. The distal vessel fills via left to right collateral fill demonstrating a long, thin posterior descending artery and 2 small, thin posterior ventricular branches. HEMODYNAMICS: Initial aortic root pressure was 117/53 with a mean of 77, aortic root following completion of the procedure was 133/63 with a mean of 89. RADIATION EXPOSURE: 7.6 minutes fluoroscopy, 1996 milligrays, [place] [id number]. FINAL IMPRESSIONS: 1. Severe coronary artery disease with left main ostial stenosis and right coronary occlusion. Disease in the left main extending into the origins of the left anterior descending, left circumflex, ramus intermedius, narrowing all vessels by 50-70% at the origins. There remain good targets present in distal vessels. 2. Left ventricular angiography not performed due to above disease. RECOMMENDATIONS: The patient will be referred for cardiovascular surgery evaluation. RIMMA
== END 2017-06-16 19:31 | disposition short-term general hospital (02) | DRG 282 ==
LOC: C.EDB 21:43 → C.MED 06-14 01:01 → ENRESERV 06-14 01:27 → OBSVTOIN 06-15 13:51 → ENRESERV 06-16 10:39 → C.2T 06-16 12:11
PROVIDERS: ADMIT Hospitalist; ATTEND Internal Medicine
PROC: B211YZZ Fluoroscopy of Multiple Coronary Arteries using Other Contrast (ICD-10-PCS; principal; 2017-06-16 09:29)
DX: I21.4 Non-ST elevation (NSTEMI) myocardial infarction (principal); I25.10 Atherosclerotic heart disease of native coronary artery without angina pectoris; I48.91 Unspecified atrial fibrillation; F32.9 Major depressive disorder, single episode, unspecified; I44.7 Left bundle-branch block, unspecified; I25.2 Old myocardial infarction; E11.9 Type 2 diabetes mellitus without complications; F17.220 Nicotine dependence, chewing tobacco, uncomplicated; Z95.5 Presence of coronary angioplasty implant and graft; Z91.14 Patient's other noncompliance with medication regimen; Z79.4 Long term (current) use of insulin; F17.200 Nicotine dependence, unspecified, uncomplicated; Z79.82 Long term (current) use of aspirin; Z82.49 Family history of ischemic heart disease and other diseases of the circulatory system

== ENCOUNTER 2017-09-03 22:24 | Inpatient (IN) | payer OTHER ==
[~2017-09-03] VITALS: Ht 170.2 cm; Wt 107.7 kg
[~2017-09-03 22:24] MED LIST: ASPI81TA28 PO; ATOR-24 PO; FENO134C2 PO; FLUO40CA8 PO; IMDSR30 PO; INSDGIPEN SC; LPR25 PO; NTRGSL/4 UT; NVLGI/PEN SC
[2017-09-03] MEDS ORDERED: ALBUT/IPRATROP 3MG/0.5MG NEB 3 ML VIAL INH STA ×2 (22:36→23:21)
[2017-09-03] MEDS ORDERED: METHYLPREDNISOLONE 125 MG VIAL IV STA (22:36)
[2017-09-03 23:02] LABS: BASO % 0.4 %; BASO ABS # 0.05 K/uL (0-0.2); EOS % 3.8 %; EOS ABS # 0.43 K/uL (0-0.5); HEMATOCRIT 43.3 % (42-52); HEMOGLOBIN 14.4 g/dL (14.0-18.0); IG# 0.04 K/uL (0.00-0.02); LYMPH % 23.5 %; LYMPH ABS # 2.64 K/uL (1.2-3.4); MEAN CELL VOLUME 96.7 fL (80-100); MEAN CORPUSCULAR HEMOGLOBIN 32.1 pg (25-34); MEAN CORPUSCULAR HGB CONC 33.3 g/dl (32-36); MONO % 7.3 %; MONO ABS # 0.82 K/uL (0.11-0.59); NEUT % 64.6 %; NEUT ABS # 7.24 K/uL (1.4-6.5); PLATELET COUNT 349 K/uL (130-400); RED CELL DISTRIBUTION WIDTH CV 13.8 % (11.5-14.5); WHITE BLOOD COUNT 11.22 K/uL (4.8-10.8)
[2017-09-03] MEDS ORDERED: METO25TA56 PO (23:14)
[2017-09-03] MEDS ORDERED: ISOS-11 PO (23:15)
[2017-09-03] MEDS ORDERED: MULT-1027 PO (23:17)
[2017-09-03 23:23] LABS: ALBUMIN 3.6 gm/dl (3.4-5.0); ALT/SGPT 34 U/L (12-78); AST/SGOT 20 U/L (15-37); BLOOD UREA NITROGEN 14 mg/dl (7-18); CALCIUM 8.6 mg/dl (8.5-10.1); CARBON DIOXIDE 29 mmol/L (21-32); CREATININE 0.64 mg/dl (0.60-1.40); GLUCOSE 163 mg/dl (70-99); LIPASE 180 U/L (73-393); POTASSIUM 4.2 mmol/L (3.5-5.1); SODIUM 140 mmol/L (136-145)
[2017-09-03] MEDS ORDERED: MAGNESIUM SULFATE 1GM / D5W 1 GM BAG IV STA (23:25)
[2017-09-03 23:28] LABS: ALKALINE PHOSPHATASE 70 U/L (45-117); TOTAL PROTEIN 7.3 gm/dl (6.4-8.2)
[2017-09-04] VITALS (9 sets, daily range): BP systolic 121–162; BP diastolic 56–87; PULSE 88–98; TEMP 36.5–37; O2SAT 91–96; Ht 170.2 cm; Wt 107.7 kg
--- NOTE | 2017-09-04 00:55 | History and Physical ---
History & Physical Date & Time of Service: Sep 04, 2017 at 00:54 . Chief Complaint: shortness of breath . Primary Care Physician: Viet Holly D.OBrooks . History of Present Illness Source: patient, clinic records, hospital records 72 YO male followed by Dr. Viet Holly for Family Medicine and Dr. Bermeo for Cardiology. History of coronary artery disease, hypertension, COPD, diabetes, and other problems noted below. Has been under tremendous stress in recent months- daughter was homicide victim and has cancer. Underwent cardiac cath 06/16/17 and found to have severe multivessel disease. Transferred to [facility] where he underwent CABG with YAN to LAD and saphenous vein grafts to circumflex and ramus intermedius. Since his CABG he has had 2 bouts of chest pain treated with short courses of ibuprofen. He has not taken any nitroglycerin. He has noted a mild nonproductive cough over the past 1-2 days. No fever, no pharyngitis. This afternoon he noted dyspnea at rest. Cough was no worse. No chest pain. In the ED he received DuoNeb treatment and IV methylprednisolone. O2 sats as low as 88% on RA. Persistent dyspnea. In the ED he had some mild left parasternal chest discomfort. . Past Medical/Surgical History Chronic and Resolved Medical Problems: (1) Anxiety Status: Chronic (2) CAD (coronary artery disease), king salmon coronary artery Permanent Comment: NE 1998 followed by PCI, NE 2005 followed by PCI, non-STEMI 2016 followed by CABG Status: Chronic (3) Cataract Status: Chronic (4) COPD (chronic obstructive pulmonary disease) Status: Chronic (5) Depression Status: Chronic (6) Diabetes mellitus, type 2 Status: Chronic (7) Dyslipidemia Status: Chronic (8) Hypertension Status: Chronic (9) Left bundle branch block (LBBB) on electrocardiogram Status: Chronic (10) Macroalbuminuric diabetic nephropathy Status: Chronic (12) Obesity (BMI 30-39.9) Status: Chronic Surgical Problems: (2) Status post cardiac catheterization Permanent Comment: Dr. Beremo [facility] 06/16/17 left main ostial occlusion, RCA occlusion, 50-70% stenoses LAD, left circumflex, ramus intermedius Status: Chronic (3) Status post cholecystectomy Status: Chronic (4) Status post colonoscopy Status: Chronic (5) Status post coronary artery bypass [place] [facility] [place] YAN --> LAD, SVG-->ramus, SVG-circumflex Status: Chronic (6) Status post coronary artery stent placement Status: Chronic . Family History FATHER Diabetes mellitus Hypertension Stroke MOTHER Diabetes mellitus Hypertension Pancreatic cancer Social History Smoking Status: Current Every Day Smoker Alcohol Use: none Drug Use: none Marital Status: Housing status: lives with significant other Occupational Status: retired Immunizations History of Influenza Vaccine: Yes History of Tetanus Vaccine?: Yes Tetanus Immunization Date: Dec 31, 2008 History of Pneumococcal: Yes Pneumococcal Date: Jul 19, 2016 History of Hepatitis B Vaccine: No Multi-Drug Resistant Organisms History of MDRO: No Allergies Coded Allergies: VELMA Inhibitors (Verified Allergy, Unknown, unknown, 09/03/17) Home Medications Scheduled Aspirin (Aspirin Ec), 81 MG PO HS Atorvastatin (Lipitor), 40 MG PO HS Clopidogrel Bisulfate (Clopidogrel), 75 MG PO DAILY Escitalopram Oxalate (Lexapro), 20 MG PO DAILY Fenofibrate (Tricor ), 134 MG PO HS Insulin Aspart (Novolog Flexpen), 15 UNITS SC TIDM Insulin Glargine (Lantus Solostar), 30 UNITS SC HS Isosorbide Dinitrate (Isosorbide Dinitrate), 10 MG PO BID Lisinopril (Lisinopril), 2.5 MG PO DAILY Metoprolol Tartrate (Lopressor) (Lopressor), 12.5 MG PO BID Multiple Vitamin (Multi Vitamin), 1 TAB PO DAILY Scheduled PRN Nitroglycerin (Nitrostat), 0.4 MG UT UD PRN for Chest Pain Review of Systems Constitutional: + weight loss (after CABG), No fever, No chills Eyes: + worsening of vision (cataracts), No diplopia ENT: No nasal symptoms, No sore throat Respiratory: + problem reported (per HPI) Cardiovascular: + problem reported (per HPI) Abdomen: No nausea, No vomiting, No diarrhea, No GI bleeding Musculoskeletal: No joint pain Genitourinary - Male: No hematuria, No dysuria Neurologic: + problem reported (no headache) Psychiatric: + depression symptoms Endocrine: No excessive thirst, No excessive urination Hematologic / Lymphatic: No abnormal bleeding/bruising Integumentary: + rash (psoriasis) Allergic / Immunologic: + seasonal allergies Physical Exam Vital Signs Date Time Temp Pulse Resp B/P (MAP) Pulse Ox O2 Delivery O2 Flow Rate FiO2 09/04/17 00:31 149/70 09/04/17 00:29 97 91 09/04/17 00:16 93 22 187/87 92 Room Air 09/04/17 00:15 98 22 89 Room Air 09/04/17 00:14 94 16 09/04/17 00:01 180/82 09/03/17 23:59 90 95 09/03/17 23:44 86 24 98 09/03/17 23:31 159/65 09/03/17 23:29 85 29 98 09/03/17 23:14 88 32 99 09/03/17 23:09 86 27 98 09/03/17 23:04 86 25 93 Nebulizer 8.0 09/03/17 23:02 150/78 09/03/17 22:59 89 26 95 09/03/17 22:54 93 20 96 09/03/17 22:51 96 Ambu-Bag 2.0 09/03/17 22:49 91 31 98 09/03/17 22:47 96 Nasal Cannula 2.0 09/03/17 22:44 89 29 96 09/03/17 22:41 95 09/03/17 22:39 92 27 97 09/03/17 22:34 94 31 97 Nasal Cannula 2.0 09/03/17 22:33 176/79 09/03/17 22:25 36.8 93 24 164/101 94 Room Air General Appearance: + mild distress, + obese Head: normocephalic, atraumatic Eyes: normal inspection, PERRL, EOMI, sclerae normal, + pertinent finding ( conjunctivae clear) ENT: hearing grossly normal, pharynx normal, + pertinent finding (upper and lower dentures) Neck: supple, no adenopathy, thyroid normal, trachea midline Respiratory/Chest: + pertinent finding (bibasilar rales, mild wheezing) Cardiovascular: regular rate, rhythm, no edema, no JVD ((althought neck veins difficult to assess due to body habitus)), no murmur, normal peripheral pulses, + gallop/S4 Abdomen/GI: normal bowel sounds, non tender, soft, no organomegaly, no pulsatile mass Extremities/Musculoskelatal: normal inspection, no calf tenderness, normal capillary refill, no pedal edema, + pertinent finding (no diabetic foot lesions) Neurologic/Psych: flame hardening machine setter II-XII nml as tested (PERRL, EOMI, no facial palsy, no dysarthria), no motor/sensory deficits (motor strength grossly intact), alert, oriented x 3, + depressed affect Skin: normal color, warm/dry, + pertinent finding (papules on lower extremities ) Lymphatic: no adenopathy (cervical) Diagnostics Laboratory Results Results Past 24 Hours Test 09/03/17 22:50 09/03/17 22:54 Range/Units White Blood Count 11.22 4.8-10.8 K/uL Red Blood Count 4.48 4.7-6.1 M/uL Hemoglobin 14.4 14.0-18.0 g/dL Hematocrit 43.3 42-52 % Mean Corpuscular Volume 96.7 80-100 fL Mean Corpuscular Hemoglobin 32.1 25-34 pg Mean Corpuscular Hemoglobin Concent 33.3 32-36 g/dl Platelet Count 349 130-400 K/uL Mean Platelet Volume 10.0 7.4-10.4 fL Neutrophils (%) (Auto) 64.6 % Lymphocytes (%) (Auto) 23.5 % Monocytes (%) (Auto) 7.3 % Eosinophils (%) (Auto) 3.8 % Basophils (%) (Auto) 0.4 % Neutrophils # (Auto) 7.24 1.4-6.5 K/uL Lymphocytes # (Auto) 2.64 1.2-3.4 K/uL Monocytes # (Auto) 0.82 0.11-0.59 K/uL Eosinophils # (Auto) 0.43 0-0.5 K/uL Basophils # (Auto) 0.05 0-0.2 K/uL RDW Standard Deviation 49.0 36.4-46.3 fL RDW Coefficient of Variation 13.8 11.5-14.5 % Immature Granulocyte % (Auto) 0.4 % Immature Granulocyte # (Auto) 0.04 0.00-0.02 K/uL Sodium Level 140 136-145 mmol/L Potassium Level 4.2 3.5-5.1 mmol/L Chloride Level 106 98-107 mmol/L Carbon Dioxide Level 29 21-32 mmol/L Anion Gap 5.0 3-11 mmol/L Blood Urea Nitrogen 14 7-18 mg/dl Creatinine 0.64 0.60-1.40 mg/dl Est Creatinine Clear Calc Drug Dose 119.1 ml/min Estimated GFR () 113.4 Estimated GFR (Non- 97.8 BUN/Creatinine Ratio 21.2 10-20 Random Glucose 163 70-99 mg/dl Calcium Level 8.6 8.5-10.1 mg/dl Magnesium Level 1.7 1.8-2.4 mg/dl Total Bilirubin 0.3 0.2-1 mg/dl Direct Bilirubin < 0.1 0-0.2 mg/dl Aspartate Amino Transf (AST/SGOT) 20 15-37 U/L Alanine Aminotransferase (ALT/SGPT) 34 12-78 U/L Alkaline Phosphatase 70 45-117 U/L Troponin I < 0.015 0-0.045 ng/ml Pro-B-Type Natriuretic Peptide 5151 0-900 pg/ml Total Protein 7.3 6.4-8.2 gm/dl Albumin 3.6 3.4-5.0 gm/dl Lipase 180 73-393 U/L Bedside Troponin I < 0.030 0-0.045 ng/ml Diagnostic Radiology Chest x-ray: postsurgical changes cardiomegaly mild pulmonary vascular congestion (preliminary interpretation by undersigned) . EKG EKG performed at 23:38 reviewed and demonstrated NSR at 90 / minute, LBBB. Compared to 06/16/17, rate increased, otherwise similar. . Impression Assessment and Plan DYSPNEA / HYPOXIA Patient presents with acute onset of dyspnea associated with nonproductive cough. History of ischemic heart disease and COPD. Dyspnea could be secondary to either cardiac or pulmonary etiologies as discussed below. Check D-dimer to screen for thromboembolic disease. Supplemental O2 as needed. CORONARY ARTERY DISEASE, S/P CABG Status post non-STEMI with subsequent 3-vessel CABG in June of this year. EKG shows NSR with previously noted LBBB. Consider myocardia ischemia. Consider CHF (few basilar rales, some pulmonary congestion on CXR, elevated BNP) . Consider postpericardiotomy syndrome. Consider takotsubo cardiomyopathy. Check serial cardiac markers. Check ESR, C-reactive protein. Check echo. Continue aspirin, clopidogrel, metoprolol, nitrates (initially NTP). Stop lisinopril due to cough and previously noted VELMA intolerance. Start losartan. IV furosemide x 1. Consult Cardiology. HYPERTENSION BP elevated in ED. Continue metoprolol and nitrates. Stop lisinopril due to cough and previously noted VELMA intolerance and transition to losartan. Follow and titrate Rx. COPD / COUGH Patient denies history of COPD, but records indicate history of mild COPD. History of intermittent smoking, including at present. No infiltrates on chest x-ray. May have exacerbation of COPD, but dyspnea and cough may be due to CHF. Received methylprednisolone and DuoNeb in ED. Consider additional steroids if ongoing wheezing. Levalbuterol nebs PRN. Check [facility] swab for influenza. DM TYPE 2 Usually well-controlled, but now acutely ill and received methylprednisolone in ED. Check Hgb A1C. Lantus / NovoLog per protocol. DYSLIPIDEMIA Check lipid profile. Continue atorvastatin and fenofibrate. DEPRESSION Under considerable emotional stress. Continue escitalopram. Lorazepam PRN. VTE PROPHYLAXIS SQ enoxaparin. Ambulate. DISPOSITION Admit to Telemetry Unit. Expected discharge to home. Family Medicine follow-up with Dr. Viet Holly. Cardiology follow-up with Dr. Bermeo. . VTE Prophylaxis Given or contraindicated: Enoxaparin (Lovenox)SQ
[2017-09-04] MEDS ORDERED: NITROGLYCERIN 0.4 MG SL PER TAB CHARGE SL PRN (01:00)
[2017-09-04] MEDS ORDERED: ACETAMINOPHEN 325 MG TAB PO PRN (01:00)
--- NOTE | 2017-09-04 01:01 | EMERGENCY ROOM VISIT NOTE ---
ED Visit Note First contact with patient: 22:30 The patient was seen and examined with Kelly Felix PA-C. I agree with the history, physical and findings. Please see the note for disposition and details.
[2017-09-04] MEDS ORDERED: NITROGLYCERIN OINT 2% 1GM PACKET EXT STA (01:18)
[2017-09-04] MEDS ORDERED: METOPROLOL TARTRATE 25 MG TAB PO STA (01:18)
[2017-09-04] MEDS ORDERED: INSULIN GLARGINE SOLOSTAR 100 UNITS/ML 3 ML PEN SC STA (01:18)
[2017-09-04] MEDS ORDERED: NITROGLYCERIN OINT 2% 1GM PACKET ONE (01:22)
[2017-09-04] MEDS ORDERED: FUROSEMIDE INJ 40 MG in SYRINGE 0 ML IV ONE (01:30)
[2017-09-04] MEDS ORDERED: FUROSEMIDE 40 MG/4 ML VIAL IV STA (01:37)
[2017-09-04] MEDS ORDERED: LORAZEPAM 0.5 MG TAB PO PRN (01:45)
[2017-09-04] MEDS ORDERED: ISR10 PO (01:46)
[2017-09-04] MEDS ORDERED: ESCI1TAB10 PO (01:46)
[2017-09-04] MEDS ORDERED: PLV75 PO (01:46)
[2017-09-04] MEDS ORDERED: LSN25 PO (01:46)
--- NOTE | 2017-09-04 01:47 | EMERGENCY ROOM VISIT NOTE ---
History First contact with patient: 22:30 Chief Complaint: SHORTNESS OF BREATH Stated Complaint: SOB, OPEN HEART SURGERY IN JUNE Nursing Triage Summary: Increasing dyspnea since this afternoon, associated chest tightness with dry cough. Chest has been generally sore since CABG in June. History of Present Illness The patient is a 72 year old male who presents to the Emergency Room with complaints of shortness of breath and cough for the past day. No change in cough production. Patient denies fevers, recent illness, chest pain, abdominal pain, leg pain or swelling, back pain, history of CHF. Patient does have COPD. He smokes 2 packs a day. He had a CABG back in June. No complications with this and this was done at [facility]. He saw Dr. Bermeo 2 weeks ago for follow-up and things are currently stable. He was encouraged to quit smoking but has declined this currently. Review of Systems See HPI for pertinent positives & negatives. A total of 10 systems reviewed and were otherwise negative. Past Medical/Surgical History Medical Problems: (1) Anxiety (2) CAD (coronary artery disease), [place] coronary artery (3) CAD S/P percutaneous coronary angioplasty (4) COPD (chronic obstructive pulmonary disease) (5) Depression (6) Diabetes (7) Dyspnea (8) HTN (hypertension) (9) Hypoxia (10) Left bundle branch block (LBBB) on electrocardiogram (11) Macroalbuminuric diabetic nephropathy (12) Myocardial infarction (13) Noncompliance w/medication treatment due to intermit use of medication (14) Obesity (BMI 30-39.9) (15) T2DM (type 2 diabetes mellitus) Surgical Problems: (1) S/P soraya Social History Problems: (1) Tobacco use Family History FH: CAD (coronary artery disease) FATHER (83 yo) FH: cancer MOTHER Social History Smoking Status: Current Every Day Smoker Drug Use: none Marital Status: Housing Status: lives with family Occupation Status: retired Current/Historical Medications Scheduled Aspirin (Aspirin Ec), 81 MG PO HS Atorvastatin (Lipitor), 40 MG PO HS Clopidogrel Bisulfate (Clopidogrel), 75 MG PO DAILY Escitalopram Oxalate (Lexapro), 20 MG PO DAILY Fenofibrate (Tricor ), 134 MG PO HS Insulin Aspart (Novolog Flexpen), 15 UNITS SC TIDM Insulin Glargine (Lantus Solostar), 30 UNITS SC HS Isosorbide Dinitrate (Isosorbide Dinitrate), 10 MG PO BID Lisinopril (Lisinopril), 2.5 MG PO DAILY Metoprolol Tartrate (Lopressor) (Lopressor), 12.5 MG PO BID Multiple Vitamin (Multi Vitamin), 1 TAB PO DAILY Scheduled PRN Nitroglycerin (Nitrostat), 0.4 MG UT UD PRN for Chest Pain Physical Exam Vital Signs Date Time Temp Pulse Resp B/P (MAP) Pulse Ox O2 Delivery O2 Flow Rate FiO2 09/04/17 01:18 Nasal Cannula 2.0 09/04/17 01:06 95 27 90 09/04/17 01:01 176/83 09/04/17 00:51 94 24 91 09/04/17 00:36 98 89 09/04/17 00:31 149/70 09/04/17 00:29 97 91 09/04/17 00:16 93 22 187/87 92 Room Air 09/04/17 00:15 98 22 89 Room Air 09/04/17 00:14 94 16 09/04/17 00:01 180/82 09/03/17 23:59 90 95 09/03/17 23:44 86 24 98 09/03/17 23:31 159/65 09/03/17 23:29 85 29 98 09/03/17 23:14 88 32 99 09/03/17 23:09 86 27 98 09/03/17 23:04 86 25 93 Nebulizer 8.0 09/03/17 23:02 150/78 09/03/17 22:59 89 26 95 09/03/17 22:54 93 20 96 09/03/17 22:51 96 Ambu-Bag 2.0 09/03/17 22:49 91 31 98 09/03/17 22:47 96 Nasal Cannula 2.0 09/03/17 22:44 89 29 96 09/03/17 22:41 95 09/03/17 22:39 92 27 97 09/03/17 22:34 94 31 97 Nasal Cannula 2.0 09/03/17 22:33 176/79 09/03/17 22:25 36.8 93 24 164/101 94 Room Air Physical Exam VITALS: Vitals are noted on the nurse's note and reviewed by myself. Vital signs hypertensive GENERAL: Pleasant male with tobacco odor with audible wheeze, in no acute distress, nondiaphoretic, well-developed well-nourished. SKIN: The skin was without rashes, erythema, edema, or bruising. There is no tenting of the skin. Capillary reflex less than 2 seconds. HEAD: Normocephalic atraumatic. EARS: External auditory canals clear, tympanic membranes pearly andrade without erythema or effusion bilaterally. EYES: Pupils equal round and reactive to light and accommodation. Conjunctivae without injection, sclerae without icterus. Extraocular movements intact. NOSE: Patent, turbinates without inflammation or discharge. MOUTH: Mucous membranes moist. Pharynx without erythema or exudate. Uvula midline. Airway patent. Tongue does not deviate. NECK: Supple without nuchal rigidity. No lymphadenopathy. No thyromegaly. Cervical spine is nontender. No JVD. HEART: Regular rate and rhythm LUNGS: diffuse inspiratory and end expiratory wheezes. No dullness to percussion. Mild abdominal accessory muscle use. ABDOMEN: Positive bowel sounds x 4. Normal tympanic percussion. Soft, nontender, without masses or organomegaly. Hoffman sign negative. No guarding or rebound tenderness. MUSCULOSKELETAL: No muscle atrophy, erythema, or edema noted. NEURO: Patient was alert and oriented to person place and time. Normal sensation to light and sharp touch. No focal neurological deficits. Medical Decision & Procedures Laboratory Results 09/03/17 22:50 Red Blood Count 4.48, Mean Corpuscular Volume 96.7, Mean Corpuscular Hemoglobin 32.1, Mean Corpuscular Hemoglobin Concent 33.3, Mean Platelet Volume 10.0, Neutrophils (%) (Auto) 64.6, Lymphocytes (%) (Auto) 23.5, Monocytes (%) (Auto) 7.3, Eosinophils (%) (Auto) 3.8, Basophils (%) (Auto) 0.4, Neutrophils # (Auto) 7.24, Lymphocytes # (Auto) 2.64, Monocytes # (Auto) 0.82, Eosinophils # (Auto) 0.43, Basophils # (Auto) 0.05 09/03/17 22:50 Test 09/03/17 22:50 09/03/17 22:54 White Blood Count 11.22 K/uL (4.8-10.8) Red Blood Count 4.48 M/uL (4.7-6.1) Hemoglobin 14.4 g/dL (14.0-18.0) Hematocrit 43.3 % (42-52) Mean Corpuscular Volume 96.7 fL (80-100) Mean Corpuscular Hemoglobin 32.1 pg (25-34) Mean Corpuscular Hemoglobin Concent 33.3 g/dl (32-36) Platelet Count 349 K/uL (130-400) Mean Platelet Volume 10.0 fL (7.4-10.4) Neutrophils (%) (Auto) 64.6 % Lymphocytes (%) (Auto) 23.5 % Monocytes (%) (Auto) 7.3 % Eosinophils (%) (Auto) 3.8 % Basophils (%) (Auto) 0.4 % Neutrophils # (Auto) 7.24 K/uL (1.4-6.5) Lymphocytes # (Auto) 2.64 K/uL (1.2-3.4) Monocytes # (Auto) 0.82 K/uL (0.11-0.59) Eosinophils # (Auto) 0.43 K/uL (0-0.5) Basophils # (Auto) 0.05 K/uL (0-0.2) RDW Standard Deviation 49.0 fL (36.4-46.3) RDW Coefficient of Variation 13.8 % (11.5-14.5) Immature Granulocyte % (Auto) 0.4 % Immature Granulocyte # (Auto) 0.04 K/uL (0.00-0.02) Anion Gap 5.0 mmol/L (3-11) Est Creatinine Clear Calc Drug Dose 119.1 ml/min Estimated GFR () 113.4 Estimated GFR (Non- 97.8 BUN/Creatinine Ratio 21.2 (10-20) Calcium Level 8.6 mg/dl (8.5-10.1) Magnesium Level 1.7 mg/dl (1.8-2.4) Total Bilirubin 0.3 mg/dl (0.2-1) Direct Bilirubin < 0.1 mg/dl (0-0.2) Aspartate Amino Transf (AST/SGOT) 20 U/L (15-37) Alanine Aminotransferase (ALT/SGPT) 34 U/L (12-78) Alkaline Phosphatase 70 U/L (45-117) Troponin I < 0.015 ng/ml (0-0.045) Pro-B-Type Natriuretic Peptide 5151 pg/ml (0-900) Total Protein 7.3 gm/dl (6.4-8.2) Albumin 3.6 gm/dl (3.4-5.0) Lipase 180 U/L (73-393) Bedside Troponin I < 0.030 ng/ml (0-0.045) Medications Administered Medications (Trade) Dose Ordered Sig/Mariella Route Start Time Stop Time Status Last Admin Dose Admin Albuterol/ Ipratropium (Duoneb) 3 ml NOW STAT INH 09/03/17 22:36 09/03/17 22:38 DC 09/03/17 22:52 3 ML Methylprednisolone Sodium Succinate (Solu-Medrol IV) 125 mg NOW STAT IV 09/03/17 22:36 09/03/17 22:38 DC 09/03/17 22:52 125 MG Albuterol/ Ipratropium (Duoneb) 3 ml NOW STAT INH 09/03/17 23:21 09/03/17 23:22 DC 09/03/17 23:24 3 ML Magnesium Sulfate (Magnesium Sulfate) 1 gm NOW STAT IV 09/03/17 23:25 09/03/17 23:26 DC 09/03/17 23:40 1 GM Metoprolol Tartrate (Lopressor Tab) 12.5 mg NOW STAT PO 09/04/17 01:18 09/04/17 01:19 DC 09/04/17 01:29 12.5 MG Insulin Glargine (Lantus Solostar Pen) 30 units NOW STAT SC 09/04/17 01:18 09/04/17 01:19 DC 09/04/17 01:37 30 UNITS Nitroglycerin (Nitroglycerin 2% Oint) 1 inch NOW STAT EXT 09/04/17 01:18 09/04/17 01:19 DC 09/04/17 01:32 1 INCH ED Course Prior records/ancillary studies reviewed. Triage Nursing notes reviewed. The patient's history was concerning for respiratory difficulties. Differential diagnosis: Etiologies such as infections, reactive airway disease, pneumonia, pneumothorax , COPD, CHF, cardiac ischemia, pulmonary embolism, musculoskeletal, gastrointestinal, as well as others were entertained. Physical examination: As above. ER treatment provided: Nebulizer, steroids, magnesium On reassessment the patient felt better. Diagnostic interpretation by me: The electrocardiogram was negative for acute ischemic or pathologic change. Normal sinus, left bundle branch block, no acute ST-T wave changes, EKG compared to prior EKG with no acute changes noted. Impression left bundle branch block interpreted by myself The labs revealed negative troponin. Elevated BNP Imaging studies: Chest x-ray with cardiomegaly, CABG wires present, and stable pulmonary congestion without acute consolidation per my interpretation and compared to prior chest x-ray Consultation: A consultation was placed with Dr Jiménez, hospitalist. The case was discussed and diagnostics were reviewed. The patient was evaluated in the ER for further treatment. This appears to be consistent with COPD exacerbation. Patient was hypoxic with ambulatory pulse ox at 88-89%. He did feel better after being medicated as above. Lungs are reassessed and improved. He will be evaluated by medicine for possible admission for the low pulse ox. By the evaluation outlined above emergent etiologies such as CHF, cardiac ischemia, pulmonary embolism, pneumonia, pneumothorax, musculoskeletal, serious bacterial infections, as well as others were deemed relatively unlikely. The pt informed about the findings as listed above. All questions were answered and pleased with the treatment. Case reviewed by attending. Medical Decision As above Medication Reconcilliation Current Medication List: was personally reviewed by me Blood Pressure Screening Patient's blood pressure: Elevated blood pressure Blood pressure disposition: Elevated BP felt to be situational Impression Primary Impression: COPD exacerbation Additional Impression: Hypoxemia Departure Information Dispostion Being Evaluated By Hospitalist Condition GOOD Referrals Viet Holly, D.O. (PCP) Patient Instructions My [facility] Problem Qualifiers
[2017-09-04] MEDS ORDERED: IV FLUIDS COMPLETED PRN (02:15)
--- NOTE | 2017-09-04 02:30 | NUR ---
Pt received into room 207 on carrier from ED. Pt alert and oriented. Exertional dyspnea. O2 on. Pt ambulated from carrier to bed. Monitor applied. Vital signs within parameters. Breath sounds clear and diminished. Sternotomy and SVG wounds healed and intact. No c/o pain. Pt oriented to environment. Monitor attached. Pt verbalizing agnst regarding upcoming trial. Pt instructed to call for assistance before getting OOB. Call light on right side of bed.
[2017-09-04] MEDS ORDERED: GLUCAGON FOR INJ 1 MG VIAL SQ PRN (02:45)
[2017-09-04] MEDS ORDERED: LEVALBUTEROL 0.63MG/3 ML NEB INH PRN (02:45)
[2017-09-04] MEDS ORDERED: DEXTROSE 50% 50 ML SYR IV PRN (02:45)
[2017-09-04] MEDS ORDERED: GLUCOSE 40% GEL 15 GM TUBE PO PRN (02:45)
[2017-09-04] MEDS ORDERED: GLUCOSE 10 TABS/TUBE PO PRN (02:45)
--- NOTE | 2017-09-04 04:00 | NUR ---
PHYSICAL ASSESSMENT DOCUMENTED IN EMR. RESTING COMFORTABLY IN BED. NO C/O PAIN OR SOB. NO DISTRESS EVIDENT. NO S/S OF HYPO- OR HYPERGLYCEMIA. VSS. VOIDING IN URINAL. CALL CARCAMO IN REACH, BED IN LOWEST POSITION, SIDE RAILS UP. WILL CONTINUE TO MONITOR.
[2017-09-04 04:08] LABS: INFLUENZA A PCR Neg for Influ A (NEG); INFLUENZA B PCR Neg for Influ B (NEG)
--- NOTE | 2017-09-04 05:20 | DIAGNOSTIC IMAGING REPORT ---
CHEST ONE VIEW PORTABLE CLINICAL HISTORY: 72 years-old Male presenting with CHEST PAIN. TECHNIQUE: Portable upright AP view of the chest was obtained. COMPARISON: 06/13/2017. FINDINGS: Median sternotomy wires new from prior related a prosthetic aortic valve may be present. The cardiac silhouette is enlarged, unchanged. Mild prominence of pulmonary vasculature and lung markings. Blunting of the left costophrenic angle may be present. No large pneumothorax. Osseous structures normal. Upper abdomen normal. IMPRESSION: 1. Cardiomegaly with suggestion of volume overload. No deirdre pulmonary edema. Possible trace left pleural effusion. Electronically signed by: Brian Harrington M.D. 09/04/2017 5:19 AM Dictated Date/Time: 09/04/2017 5:18 AM
[2017-09-04] MEDS: NITROGLYCERIN OINT 2% 1GM PACKET EXT SCH ×3 (06:15→17:47)
[2017-09-04 06:20] LABS: BLOOD UREA NITROGEN 17 mg/dl (7-18); CALCIUM 9.4 mg/dl (8.5-10.1); CARBON DIOXIDE 26 mmol/L (21-32); CHOLESTEROL 149 mg/dl (0-200); CREATININE 1.04 mg/dl (0.60-1.40); GLUCOSE 367 mg/dl (70-99); LDL CHOLESTEROL CALCULATED 100 mg/dl; POTASSIUM 4.2 mmol/L (3.5-5.1); SODIUM 135 mmol/L (136-145)
[2017-09-04] MEDS ORDERED: INSULIN ASPART 100 UNITS/ML 3 ML PEN SC ONE (06:25)
--- NOTE | 2017-09-04 06:26 | NUR ---
DR KERN MADE AWARE OF CRITICAL BLOOD GLUCOSE OF 367, NOTES THAT HE WILL ENTER ORDERS RE: INSULIN
[2017-09-04 06:55] LABS: PTT PATIENT 32.2 SECONDS (21.0-31.0)
[2017-09-04] MEDS ORDERED: INSULIN ASPART 100 UNITS/ML 3 ML PEN SC SCH (07:00)
[2017-09-04] MEDS ORDERED: PERFLUTREN LIPID MICROSPHERE (DEFINITY) IV ONE (07:45)
--- NOTE | 2017-09-04 08:05 | NUR ---
Nursing assessment completed, see emr for detailed assessment. Alert and oriented x 4. Denies pain or sob at this time. REsting quietly in bed. No concerns voiced at this time. Call elena in reach. Will continue to monitor.
--- NOTE | 2017-09-04 08:38 | DIAGNOSTIC IMAGING REPORT ---
VENOUS DOPPLER LWR EXT BILA CLINICAL HISTORY: 72 years-old Male presenting with elevated D-dimer, SOB. TECHNIQUE: Real-time grayscale and color and spectral Doppler ultrasound imaging of the veins of the bilateral lower extremities was performed. Compression and augmentation were also utilized. COMPARISON: None. FINDINGS: Right: Common femoral vein: Patent. Greater saphenous vein: Patent. Deep femoral vein: Patent. Femoral vein: Patent. Popliteal vein: Patent. Calf veins: Patent. Left: Common femoral vein: Patent. Greater saphenous vein: Patent. Deep femoral vein: Patent. Femoral vein: Patent. Popliteal vein: Patent. Calf veins: Patent. Other: None. IMPRESSION: No evidence of deep venous thrombosis. Electronically signed by: Brian Harrington M.D. 09/04/2017 8:36 AM Dictated Date/Time: 09/04/2017 8:35 AM
[2017-09-04] MEDS ORDERED: OPTIRAY 320 IV PRN (09:00)
[2017-09-04] MEDS ORDERED: LOSARTAN POTASSIUM 25 MG TAB PO SCH (09:00)
--- NOTE | 2017-09-04 09:03 | DIAGNOSTIC IMAGING REPORT ---
(CHEST FOR PE) ANGIO WITH CLINICAL HISTORY: 72 years-old Male presenting with ^elevated D-dimer, SOB. TECHNIQUE: Multidetector CT angiography of the chest was performed after administration of intravenous contrast. 3-D volumetric and/or maximum intensity projection (MIP) images were subsequently reconstructed for review. IV contrast: 81 mL of Optiray 320. A dose lowering technique was used consistent with the principles of ALARA (as low as reasonably achievable). COMPARISON: Chest x-ray performed the previous day. CT DOSE (mGy.cm): The estimated cumulative dose is 698.53 mGy.cm. FINDINGS: Tent Finisher topogram: Cardiomegaly. Pulmonary vasculature: The study is suboptimal for the assessment of pulmonary emboli secondary to respiratory motion artifact. This limits evaluation of segmental and subsegmental pulmonary arteries. Within this limitation, no central filling defect to suggest pulmonary embolus. Main pulmonary artery is mildly enlarged measuring 3.3 cm in maximal diameter. No flattening of the interventricular septum. No intracardiac intracardiac filling defect. Slight reflux of contrast into the intrahepatic IVC. Remaining chest: On soft tissue windows, post surgical changes of median sternotomy with coronary artery bypass grafting. Few prominent subcarinal/paraesophageal lymph nodes, possibly reactive. Atherosclerosis of the aorta. Multichamber enlargement of the heart with coronary artery calcification. No pericardial effusion. Small pleural effusion. Cholecystectomy clips. On lung windows, dependent consolidation in the left lower lobe likely passive atelectasis secondary to the presence of the pleural effusion. No significant interlobular septal thickening though there is mild prominence of pulmonary vasculature. Mild mosaic attenuation at the lung bases could relate to the phase of respiration or be secondary to small airways disease. Solid peripheral 4 mm nodule in the left upper lobe (series 4 image 189). Additional solid peripheral pulmonary nodule measuring 5 mm in the left lower lobe (series 4 image 97). Airways patent. On bone windows, degenerative changes of the thoracic spine. Atrophy of the left subscapularis suggesting rotator cuff tear. IMPRESSION: 1. No central pulmonary embolus allowing for suboptimal image quality secondary to respiratory motion artifact. 2. Small left pleural effusion with passive atelectasis of the left lower lobe. 3. Cardiomegaly. No evidence of pulmonary edema. Mild volume overload. 4. Two solid pulmonary nodules in the left lung, the largest measuring 5 mm. Follow-up per [employer] 2017 recommendations below. 5. Postsurgical changes of CABG. 6. Atrophy of the left subscapularis suggestion rotator cuff tear. Please refer to below summary of Fleischner Society 2017 recommendations for follow-up of incidental CT nodules (Latoya Moon et al. Guidelines for management of incidental pulmonary nodules detected on CT images: From the Fleischner Society 2017. Radiology 2017; 284: 228-243.) SOLID NODULES Single nodule; size < 6 mm * Low risk patients: No routine follow-up * High risk patients: Optional CT at 12 months Single nodule; size 6-8 mm * Low risk patients: CT at 6-12 months, then consider CT at 18-24 months * High risk patients: CT at 6-12 months, then at 18-24 months Single nodule; size > 8 mm * Either low or high risk patients: Considered CT at 3 months, PET/CT, or tissue sampling Multiple nodules; size < 6 mm * Low risk patients: No routine follow up * High risk patients: Optional CT at 12 months Multiple nodules; size 6-8 mm * Low risk patients: CT at 3-6 months, then consider CT at 18-24 months * High risk patients: CT at 3-6 months, then at 18-24 months Multiple nodules; size > 8 mm * Low risk patients: CT at 3-6 months, then consider at 18-24 months * High risk patients: CT at 3-6 months, then at 18-24 months Note: These guidelines apply to incidental nodules. These guidelines do not apply to patients younger than 35 years, immunocompromised patients, or patients with cancer. * Low risk patients: Minimal or absent history of smoking and/or other known risk factors * High risk patients: History of smoking, exposure to other carcinogens, emphysema, fibrosis, upper lobe location, family history of lung cancer, etc. * If a nodule up to 8 mm is partly solid or is ground glass, further follow-up is required after 24 months to exclude possible slow growing adenocarcinoma. SUBSOLID NODULES Single ground-glass nodule * Nodule size < 6 mm: No routine follow-up * Nodule size > or = 6 mm: CT at 6-12 months to confirm persistence, then CT every 2 years until 5 years Single part-solid nodule * Nodule size < 6 mm: No routine follow-up * Nodules size > or = 6 mm: CT at 3-6 months to confirm persistence. If unchanged and solid component remains < 6 mm, annual CT should be performed for 5 years Multiple nodules * Nodule size < 6 mm: CT at 3-6 months. If stable, consider CT at 2 and 4 years. * Nodules size > or = 6 mm: CT at 3-6 months. Subsequent management based on the most suspicious nodule(s) Electronically signed by: Brian Harrington M.D. 09/04/2017 9:02 AM Dictated Date/Time: 09/04/2017 8:52 AM
[2017-09-04] MEDS: CLOPIDOGREL BISULFATE 75 MG TAB PO SCH (09:06)
[2017-09-04] MEDS: MULTIVITAMIN TAB PO SCH (09:06)
[2017-09-04] MEDS: METOPROLOL TARTRATE 25 MG TAB PO SCH ×2 (09:06→21:56)
[2017-09-04] MEDS: ESCITALOPRAM OXALATE 20 MG TAB PO SCH (09:06)
[2017-09-04] MEDS: NICOTINE 7 MG/24 HR TDSY TD SCH (09:07)
[2017-09-04] MEDS ORDERED: LEVALBUTEROL/IPRATROPIUM NEB INH PRN (10:15)
[2017-09-04] MEDS ORDERED: MODERATE STRESS LEVEL SCH (10:15)
[2017-09-04] MEDS ORDERED: INSULIN PROTOCOL GOAL RANGE SCH (10:15)
[2017-09-04] MEDS ORDERED: PHARMACY GLYCEMIC MGMT CONSULT PRN (10:19)
[2017-09-04] MEDS ORDERED: INSULIN IV INFUSION PROTOCOL SCH (10:20)
[2017-09-04] MEDS ORDERED: LEVALBUTEROL 1.25MG/0.5ML NEB INH PRN (10:30)
[2017-09-04] MEDS ORDERED: IPRATROPIUM BROMIDE NEB SOLN 0.02% 2.5 ML VIAL INH PRN (10:30)
[2017-09-04] MEDS ORDERED: INSULIN HUMAN REGULAR IV BOLUS 2.5 UNIT in SYRINGE 0 ML IV SCH (11:45)
[2017-09-04] MEDS: LEVOFLOXACIN 750 MG TAB PO SCH (11:59)
[2017-09-04] MEDS: INSULIN REGULAR 250 UNITS in SODIUM CHLORIDE 0.9% 250ML 250 ML IV SCH ×3 (11:59→17:14)
[2017-09-04] MEDS: METHYLPREDNISOLONE IV 40 MG in SYRINGE 0 ML IV SCH ×2 (11:59→17:45)
--- NOTE | 2017-09-04 12:05 | NUR ---
Reassessed, see emr for detailed assessment. Alert and oriented x 4. Denies pain or sob at this time. Insulin gtt infusing w/out difficulty. Call elena in reach. Will continue to monitor.
[2017-09-04] MEDS ORDERED: LOSARTAN POTASSIUM 25 MG TAB PO ONE (12:45)
--- NOTE | 2017-09-04 13:08 | Pharmacy Progress Note ---
Glycemic Control Intl Consult Date of Service Sep 04, 2017. Scope Glycemic Pharmacist consulted by Dr Tellez on 09/04/17 for glycemic control and to write orders per [facility] inpatient glycemic control protocol Objective Weight (Kilograms): 107.700 Accuchecks BSG (last 24hrs): Test 09/03/17 22:50 09/04/17 01:35 09/04/17 05:37 09/04/17 06:23 Random Glucose 163 mg/dl (70-99) 367 mg/dl (70-99) Bedside Glucose 222 mg/dl (70-99) 339 mg/dl (70-99) Test 09/04/17 10:48 Bedside Glucose 286 mg/dl (70-99) Laboratory Data (last 24hrs) Test 09/03/17 22:50 09/04/17 05:37 Anion Gap 5.0 mmol/L 9.0 mmol/L BUN/Creatinine Ratio 21.2 16.1 Blood Urea Nitrogen 14 mg/dl 17 mg/dl Creatinine 0.64 mg/dl 1.04 mg/dl Potassium Level 4.2 mmol/L 4.2 mmol/L Sodium Level 140 mmol/L 135 mmol/L White Blood Count 11.22 K/uL Red Blood Count 4.48 M/uL Hemoglobin 14.4 g/dL Hematocrit 43.3 % Mean Corpuscular Volume 96.7 fL Mean Corpuscular Hemoglobin 32.1 pg Mean Corpuscular Hemoglobin Concent 33.3 g/dl Platelet Count 349 K/uL Mean Platelet Volume 10.0 fL Neutrophils (%) (Auto) 64.6 % Lymphocytes (%) (Auto) 23.5 % Monocytes (%) (Auto) 7.3 % Eosinophils (%) (Auto) 3.8 % Basophils (%) (Auto) 0.4 % Neutrophils # (Auto) 7.24 K/uL Lymphocytes # (Auto) 2.64 K/uL Monocytes # (Auto) 0.82 K/uL Eosinophils # (Auto) 0.43 K/uL Basophils # (Auto) 0.05 K/uL Hemoglobin A1c 7.0 % HbA1c Test 09/04/17 05:37 Hemoglobin A1c 7.0 % (4.5-5.6) H Recent Pertinent Medications Outpatient Anti-diabetic Regimen: * Lantus 30 units SQ AM * NovoLog 15 units SQ TIDM The patient is currently receiving: * Basal insulin: Lantus 30 units every 24 hours given at bedtime * Correctional Insulin: Novolog Correction per scale ACHS Goal Range: Low 110 mg/dL - High 140 mg/dL Correction Factor: 15 mg/dL/unit * Prandial insulin: Per carb ratio of 1 unit per 5 grams CHO consumed Risk Factors for Insulin Resistance: * Steroids * Infection * Diet Assessment & Plan ASSESSMENT: * 72yo T2DM male with excellent outpatient control per recent A1c * Pt with severe hyperglycemia presently d/t high dose IV steroids and infection * Pt received SoluMedrol 125mg IV x 1 in ED and is now ordered Solumedrol 40mg IV TID * Typically, patients require ~0.4units/kg additional insulin for high dose IV steroids. * Best to try to cover steroids with prandial insulin since they have their most profound effect on post-prandial hyperglycemia. However, patient is receiving round the clock steroid dosing so it will be adequate to cover the hyperglycemia with long acting insulin * Hospitalist ordered IV insulin infusion for severe hyperglycemia. Will continue IV insulin infusion short term and transition over to high stress/ weight based dosing once acute hyperglycemia resolved. PLAN FOR INPATIENT GLYCEMIC CONTROL: * IV insulin infusion per moderate stress protocol * Goal Range 140 - 180 mg/dl * Basal insulin * Lantus 54 units (~0.5 units/kg) SQ x 1 dose with dinner, then, * Lantus 27 units SQ BID * Once steroids are tapered we can transition back to HS dosing of Lantus only * Bolus insulin * NovoLog per scale ACHS or Q6hrs while NPO * Goal Range: Low 100 mg/dL - High 140 mg/dL * Correction Factor: 15 mg/dL/unit * Nutritional / Prandial insulin per carb ratio of 1 unit per 5 grams CHO consumed * Please note that the plan above was derived based on current level of insulin resistance and hospital stress. These recommendations are appropriate for inpatient admission only. Plan of care upon discharge will need to be reassessed to avoid potential outpatient hypo/hyperglycemia. Thank you.
[2017-09-04] MEDS: INSULIN ASPART 100 UNITS/ML 3 ML PEN SC SCH ×3 (14:18→21:00)
[2017-09-04] MEDS: LEVALBUTEROL 0.63MG/3 ML NEB INH SCH ×2 (14:28→19:21)
[2017-09-04] MEDS: IPRATROPIUM BROMIDE NEB SOLN 0.02% 2.5 ML VIAL INH SCH ×2 (14:28→19:21)
--- NOTE | 2017-09-04 14:41 | CARDIOLOGY CONSULTATION ---
DATE OF CONSULTATION: 09/04/2017 REFERRING PHYSICIAN: [facility]. REASON FOR CONSULTATION: Shortness of breath. HISTORY OF PRESENT ILLNESS: This is a 72-year-old male patient who is usually followed by Dr. Bermeo through the [facility]. Earlier this year, he presented with crescendo angina in the setting of paroxysmal atrial fibrillation and eventually underwent coronary artery bypass surgery. The patient has been under a great deal of emotional stress. Earlier this year, his daughter was a homicide victim. His has also been battling cancer. Postoperatively, he has had a lot of chest discomfort, which may be related to the stressors in his life. He has been treated with ibuprofen with some improvement. He has been admitted with increased dyspnea and a nonproductive cough for the past 1-2 days. He is a cigarette smoker. He continues to smoke cigarettes right up until yesterday when he was admitted. After admission, his pro-natriuretic peptide was 5000. He has been given some diuresis. Cardiac markers have been negative. He has also been started on steroids and intensive pulmonary treatment for possible exacerbation of COPD or chronic bronchitis. He denies heart palpitations or tachycardia. He has had no orthopnea or lower extremity edema. ALLERGIES: HE HAS AN INTOLERANCE TO VELMA INHIBITORS DUE TO COUGH. Up until admission, he was on lisinopril. He has now been switched to losartan. PAST MEDICAL HISTORY: As outlined above, he underwent coronary artery bypass surgery in June of this year. He received the YAN to the LAD saphenous vein graft to the ramus and saphenous vein graft to the left circumflex artery. Previously in 1998, he received an LAD stent and then in 2005, he received a stent in his right coronary artery. He has a chronic left bundle-branch block. His most recent echocardiogram reveals an estimated left ventricular ejection fraction between 45% and 50%. He has no significant valvular pathology. He does have evidence of moderate diastolic heart failure. He was treated for hypertension. He has chronic obstructive lung disease due to cigarette smoking. He is a type 2 diabetic with a history of hypertension and dyslipidemia. He has signs of early diabetic nephropathy. SOCIAL HISTORY: He continues to smoke daily. He is . He has had a recent stress in his life due to his daughter being a homicide victim and his has diagnosis of cancer. FAMILY MEDICAL HISTORY: Noncontributory. REVIEW OF SYSTEMS: A 10-point review of systems is negative except for the history of chief complaint. PHYSICAL EXAMINATION: GENERAL: He is alert and oriented. VITAL SIGNS: Blood pressure is 140/70, pulse is regular at 95 beats per minute. He is afebrile. HEENT: Normocephalic. Pupils are equal and reactive to light. Extraocular muscles are intact bilaterally. NECK: The neck veins are flat. Carotids have good upstrokes bilaterally without bruits. Thyroid is nonpalpable. RESPIRATORY: Breath sounds equal bilaterally and clear to auscultation. CARDIOVASCULAR: Heart has a regular rhythm. Normal S1, S2. No S3, S4. No cardiac rubs or murmurs. GASTROINTESTINAL: Abdomen is soft, nontender without organomegaly. EXTREMITIES: Free of edema, digit clubbing, or cyanosis. NEUROLOGIC: Grossly intact. SKIN: Warm to touch. LYMPH NODES: Negative to palpation. IMPRESSION: 1. Mild congestive heart failure. 2. Fjtwz-ml-fxsymlr diastolic heart failure. 3. Mild left ventricular systolic dysfunction with an estimated left ventricular ejection fraction of 45%-50%. 4. Evnmc-we-noszysz bronchitis. 5. Diabetes mellitus. 6. Chronic obstructive pulmonary disease due to cigarette smoking. RECOMMENDATIONS: I would continue the patient's intensive treatment for his COPD and chronic bronchitis. I encouraged him to stop smoking, although it is very difficult for him at present due to his underlying home stress. He is hypertensive and I will increase his losartan. Ultimately, we may have to discontinue or at least hold his metoprolol until his bronchitis is under better control. I will have further recommendations following the above.
[2017-09-04] MEDS ORDERED: LEVALBUTEROL/IPRATROPIUM NEB INH SCH (15:00)
--- NOTE | 2017-09-04 16:05 | NUR ---
Reassessed, see emr for detailed assessment. No concerns voiced at this time. Will continue to monitor,
--- NOTE | 2017-09-04 17:12 | Progress Note ---
Internal Med Progress Note Date of Service: Sep 04, 2017. Provider Documentation: SUBJECTIVE: patient says he still feeling so has dry cough having chest pain with cough and thinks is muscle pain form his surgery afebrile patient says smokes 2 pack cigarettes/day for last 30 yrs and last smoke about a week ago no nausea OBJECTIVE: Vital Signs-as noted below Exam: General-alert and awake. not in distress ENT-Normal hearing Neck-no neck masses Lungs-Cta b/l mild wheezing on anterior chest no crackles Heart-S1 and S2 heard regular No murmurs Abdomen-Soft Bowel sounds present Non tender No distension Extremities-trace edema present No erythema Neuro-alert and awake moves extremities Lab data as noted below. ASSESSMENT & PLAN: DYSPNEA / HYPOXIA Patient presents with acute onset of dyspnea associated with nonproductive cough. History of ischemic heart disease and COPD. copd ex chf? flu negative Mild acute on chronic systolic and diastolic chf Ef 45-50%z Lot of stress.Takotsubo cardiomyopathy?. received a dose of iv lasix not on diuretics at home cardiology on board will f/u echo continue to monitor. COPD ex acute bronchitis patient says smokes 2pack day for last 30yrs has wheezing on exam cxr no pneumonia iv steroids, nebs atc and prn and po Levaquin and monitor. CORONARY ARTERY DISEASE, S/P CABG Status post non-STEMI with subsequent 3-vessel CABG in June of this year. EKG shows NSR with previously noted LBBB.Ce negative HAs chest pain with cough at surgery site-mostly musculoskeletal. 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 To continue aspirin, clopidogrel, metoprolol, nitrates (initially NTP). Stopped lisinopril due to cough and previously noted VELMA intolerance. Started losartan.Dose adjustment as per cardiology will monitor HYPERTENSION On metoprolol and nitrates. Stopped lisinopril due to cough and previously noted VELMA intolerance and transitioned to losartan. will monitor DM TYPE 2 Usually well-controlled. Hgb A1C 7.0. elevated secondary to steroids and illness Lantus / NovoLog per protocol started on insulin drip protocol pharmacy consulted. DYSLIPIDEMIA f/u lipid profile. on atorvastatin and fenofibrate. DEPRESSION Under lot of emotional stress. to continue escitalopram. Lorazepam PRN. VTE PROPHYLAXIS SQ enoxaparin. Ambulate. DISPOSITION Monitor in Telemetry Unit. Expected discharge to home and followup withy pcp and cardiology. Vital Signs: Date Time Temp Pulse Resp B/P (MAP) Pulse Ox O2 Delivery O2 Flow Rate FiO2 09/04/17 15:30 36.7 90 18 154/71 (98) 91 Room Air 09/04/17 14:32 88 16 96 Room Air 09/04/17 12:19 36.7 93 18 121/56 (77) 94 Room Air 09/04/17 08:12 91 18 162/87 (112) 93 Room Air 09/04/17 04:00 Nasal Cannula 3.0 09/04/17 03:59 36.8 93 22 161/72 (101) 92 Nasal Cannula 3.0 09/04/17 03:00 36.6 98 22 147/86 93 2.0 09/04/17 02:11 100 93 09/04/17 02:01 152/93 09/04/17 01:56 97 93 09/04/17 01:41 96 29 94 09/04/17 01:31 163/84 09/04/17 01:26 96 30 94 09/04/17 01:18 Nasal Cannula 2.0 09/04/17 01:11 95 19 91 Nasal Cannula 3.0 09/04/17 01:06 95 27 90 09/04/17 01:01 176/83 09/04/17 00:51 94 24 91 09/04/17 00:36 98 89 09/04/17 00:31 149/70 09/04/17 00:29 97 91 09/04/17 00:16 93 22 187/87 92 Room Air 09/04/17 00:15 98 22 89 Room Air 09/04/17 00:14 94 16 09/04/17 00:01 180/82 09/03/17 23:59 90 95 09/03/17 23:44 86 24 98 09/03/17 23:31 159/65 09/03/17 23:29 85 29 98 09/03/17 23:14 88 32 99 09/03/17 23:09 86 27 98 09/03/17 23:04 86 25 93 Nebulizer 8.0 09/03/17 23:02 150/78 09/03/17 22:59 89 26 95 09/03/17 22:54 93 20 96 09/03/17 22:51 96 Ambu-Bag 2.0 09/03/17 22:49 91 31 98 09/03/17 22:47 96 Nasal Cannula 2.0 09/03/17 22:44 89 29 96 09/03/17 22:41 95 09/03/17 22:39 92 27 97 09/03/17 22:34 94 31 97 Nasal Cannula 2.0 09/03/17 22:33 176/79 09/03/17 22:25 36.8 93 24 164/101 94 Room Air Lab Results: Results Past 24 Hours Test 09/03/17 22:50 09/03/17 22:54 09/04/17 01:35 09/04/17 02:55 Range/Units White Blood Count 11.22 4.8-10.8 K/uL Red Blood Count 4.48 4.7-6.1 M/uL Hemoglobin 14.4 14.0-18.0 g/dL Hematocrit 43.3 42-52 % Mean Corpuscular Volume 96.7 80-100 fL Mean Corpuscular Hemoglobin 32.1 25-34 pg Mean Corpuscular Hemoglobin Concent 33.3 32-36 g/dl Platelet Count 349 130-400 K/uL Mean Platelet Volume 10.0 7.4-10.4 fL Neutrophils (%) (Auto) 64.6 % Lymphocytes (%) (Auto) 23.5 % Monocytes (%) (Auto) 7.3 % Eosinophils (%) (Auto) 3.8 % Basophils (%) (Auto) 0.4 % Neutrophils # (Auto) 7.24 1.4-6.5 K/uL Lymphocytes # (Auto) 2.64 1.2-3.4 K/uL Monocytes # (Auto) 0.82 0.11-0.59 K/uL Eosinophils # (Auto) 0.43 0-0.5 K/uL Basophils # (Auto) 0.05 0-0.2 K/uL RDW Standard Deviation 49.0 36.4-46.3 fL RDW Coefficient of Variation 13.8 11.5-14.5 % Immature Granulocyte % (Auto) 0.4 % Immature Granulocyte # (Auto) 0.04 0.00-0.02 K/uL Sodium Level 140 136-145 mmol/L Potassium Level 4.2 3.5-5.1 mmol/L Chloride Level 106 98-107 mmol/L Carbon Dioxide Level 29 21-32 mmol/L Anion Gap 5.0 3-11 mmol/L Blood Urea Nitrogen 14 7-18 mg/dl Creatinine 0.64 0.60-1.40 mg/dl Est Creatinine Clear Calc Drug Dose 119.1 ml/min Estimated GFR () 113.4 Estimated GFR (Non- 97.8 BUN/Creatinine Ratio 21.2 10-20 Random Glucose 163 70-99 mg/dl Calcium Level 8.6 8.5-10.1 mg/dl Magnesium Level 1.7 1.8-2.4 mg/dl Total Bilirubin 0.3 0.2-1 mg/dl Direct Bilirubin < 0.1 0-0.2 mg/dl Aspartate Amino Transf (AST/SGOT) 20 15-37 U/L Alanine Aminotransferase (ALT/SGPT) 34 12-78 U/L Alkaline Phosphatase 70 45-117 U/L Troponin I < 0.015 0-0.045 ng/ml Pro-B-Type Natriuretic Peptide 5151 0-900 pg/ml Total Protein 7.3 6.4-8.2 gm/dl Albumin 3.6 3.4-5.0 gm/dl Lipase 180 73-393 U/L Bedside Troponin I < 0.030 0-0.045 ng/ml Bedside Glucose 222 70-99 mg/dl Influenza Type A (RT-PCR) Neg for Influ A NEG Influenza Type B (RT-PCR) Neg for Influ B NEG Test 09/04/17 05:37 09/04/17 06:23 09/04/17 10:48 09/04/17 13:04 Range/Units Prothrombin Time 10.7 9.0-12.0 SECONDS Prothromb Time International Ratio 1.0 0.9-1.1 Activated Partial Thromboplast Time 32.2 21.0-31.0 SECONDS Partial Thromboplastin Ratio 1.2 D-Dimer 1950 0-500 ug/L FEU Sodium Level 135 136-145 mmol/L Potassium Level 4.2 3.5-5.1 mmol/L Chloride Level 100 98-107 mmol/L Carbon Dioxide Level 26 21-32 mmol/L Anion Gap 9.0 3-11 mmol/L Blood Urea Nitrogen 17 7-18 mg/dl Creatinine 1.04 0.60-1.40 mg/dl Est Creatinine Clear Calc Drug Dose 73.3 ml/min Estimated GFR () 82.7 Estimated GFR (Non- 71.4 BUN/Creatinine Ratio 16.1 10-20 Random Glucose 367 70-99 mg/dl Estimated Average Glucose 154 mg/dl Hemoglobin A1c 7.0 4.5-5.6 % Calcium Level 9.4 8.5-10.1 mg/dl Magnesium Level 1.8 1.8-2.4 mg/dl Troponin I < 0.015 0-0.045 ng/ml Triglycerides Level 112 0-150 mg/dl Cholesterol Level 149 0-200 mg/dl HDL Cholesterol 27 mg/dl LDL Cholesterol, Calculated 100 mg/dl VLDL Cholesterol, Calculated 22 mg/dl Cholesterol/HDL Ratio 5.5 Beta-Hydroxybutyric Acid 5.66 0.2-2.81 mg/dL Bedside Glucose 339 286 258 70-99 mg/dl Test 09/04/17 13:13 09/04/17 14:10 09/04/17 15:11 09/04/17 15:57 Range/Units Troponin I < 0.015 0-0.045 ng/ml Bedside Glucose 238 234 206 70-99 mg/dl
[2017-09-04] MEDS ORDERED: INSULIN GLARGINE SOLOSTAR 100 UNITS/ML 3 ML PEN SC SCH ×4 (18:00→21:00)
--- NOTE | 2017-09-04 20:00 | NUR ---
PHYSICAL ASSESSMENT COMPLETED, SEE EMR FOR FULL DOCUMENTATION. RESTING IN BED COMFORTABLY, DENIES PAIN OR SOB AT THIS TIME. NO DISTRESS EVIDENT. INSULIN GTT INFUSING, NO S/S OF HYPO- OR HYPERGLYCEMIA NOTED. OOB INDEPENDENTLY. CALL CARCAMO IN REACH, BED IN LOWEST POSITION, SIDE RAILS UP. WILL CONTINUE TO MONITOR.
[2017-09-04] MEDS: FENOFIBRATE 145 MG TAB PO SCH (21:55)
[2017-09-04] MEDS: ATORVASTATIN 40 MG TAB PO SCH (21:56)
[2017-09-04] MEDS: ASPIRIN 81 MG ECTAB PO SCH (21:56)
[2017-09-04] MEDS: ENOXAPARIN 40 MG/0.4 ML SYR SQ SCH (21:57)
[2017-09-05] VITALS (11 sets, daily range): BP systolic 110–153; BP diastolic 66–77; PULSE 79–95; TEMP 36.4–36.9; O2SAT 91–98
[2017-09-05] MEDS ORDERED: DC IV INSULIN INFUSION ONE
--- NOTE | 2017-09-05 | NUR ---
PHYSICAL ASSESSMENT UNCHANGED. RESTING COMFORTABLY IN BED. INSULIN GTT DC'D PER ORDERS. NO S/S OF HYPO- OR HYPERGLYCEMIA. DENIES PAIN OR SOB. VSS. NO DISTRESS EVIDENT. CALL CARCAMO IN REACH, WILL CONTINUE TO MONITOR.
[2017-09-05] MEDS: NITROGLYCERIN OINT 2% 1GM PACKET EXT SCH ×2 (00:20→06:43)
[2017-09-05] MEDS: METHYLPREDNISOLONE IV 40 MG in SYRINGE 0 ML IV SCH ×2 (00:20→08:56)
[2017-09-05] MEDS: IPRATROPIUM BROMIDE NEB SOLN 0.02% 2.5 ML VIAL INH SCH ×4 (01:44→18:59)
[2017-09-05] MEDS: LEVALBUTEROL 0.63MG/3 ML NEB INH SCH ×4 (01:44→18:59)
--- NOTE | 2017-09-05 04:00 | NUR ---
PHYSICAL ASSESSMENT REMAINS UNCHANGED AT THIS TIME. SLEEPING COMFORTABLY THIS SHIFT. NO DISTRESS EVIDENT. NO C/O PAIN OR SOB. REPOSITIONS INDEPENDENTLY. NO NEW ISSUES OR CONCERNS. CALL CARCAMO IN REACH, WILL CONTINUE TO MONITOR.
[2017-09-05 05:57] LABS: BASO % 0.1 %; BASO ABS # 0.01 K/uL (0-0.2); HEMATOCRIT 40.9 % (42-52); IG# 0.07 K/uL (0.00-0.02); LYMPH ABS # 1.44 K/uL (1.2-3.4); MEAN CELL VOLUME 95.1 fL (80-100); MEAN CORPUSCULAR HEMOGLOBIN 32.6 pg (25-34); MEAN CORPUSCULAR HGB CONC 34.2 g/dl (32-36); MEAN PLATELET VOLUME 10.3 fL (7.4-10.4); MONO % 3.2 %; MONO ABS # 0.57 K/uL (0.11-0.59); NEUT % 88.3 %; NEUT ABS # 15.82 K/uL (1.4-6.5); PLATELET COUNT 343 K/uL (130-400); RED CELL DISTRIBUTION WIDTH CV 13.6 % (11.5-14.5); WHITE BLOOD COUNT 17.91 K/uL (4.8-10.8)
[2017-09-05 06:27] LABS: CALCIUM 8.9 mg/dl (8.5-10.1); CREATININE 0.9 mg/dl (0.60-1.40); POTASSIUM 4.2 mmol/L (3.5-5.1)
--- NOTE | 2017-09-05 08:00 | NUR ---
Nursing assessment completed, see emr for detailed assessment. Alert and oriented x 4. Denies pain or sob at this time. Resting quietly in bed. Ambulates independently. Call elena in reach. Will continue to monitor.
--- NOTE | 2017-09-05 08:50 | ECHOCARDIOGRAM REPORT ---
*NOTICE TO RECEIVING CON[employer]UTION [employer]Y AGENCY This information is strictly Confidential and protected under [place] law. [place] law prohibits you from making any further disclosure of this information unless further disclosure is expressly permitted by the written consent of the person to whom it pertains or is authorized by law. A general authorization for the release of medical or other information is not sufficient for this purpose. Hospital accepts no responsibility if the information is made available to any other person, INCLUDING THE PATIENT. Interpretation Summary * Name: ELIZABETH ARMSTRONG Study Date: 09/04/2017 07:11 AM BP: 161/72 mmHg * Patient Location: C.2E\S\E207\S\1 HR: 89 * : 1945 (M/d/yyyy) Gender: Male Height: 67 in * Age: 72 yrs Ethnicity: [place] Weight: 226 lb * Ordering Physician: Elizabeth Jiménez * Referring Physician: Self, Referred * Performed By: Erica Prasad RCS * * Reason For Study: CHEST PAIN * BSA: 2.1 m2 * The study was technically limited. * Grossly normal valvular structure and function. * -- Conclusions -- * The study was technically limited. * The right ventricle is not well visualized. * The left ventricular ejection fraction is grossly normal. * Grossly normal valvular structure and function. Procedure Details * A complete two-dimensional transthoracic echocardiogram was performed (2D, M-mode, Doppler and color flow Doppler). * The study was technically difficult. * A contrast injection of Definity was performed to improve assessment of LV function. * Contrast was injected into an intravenous site in the left arm. * One vial of Definity ultrasound contrast was diluted in normal saline to a total volume of 10 ml. A total of '2' ml of solution was administered during imaging. * Lot # [id number] of Definity utilized for procedure. * Expiration date 1 OCT 30. * The attending nurse who injected the contrast agent was RENA ZAVALETA, RN. Left Ventricle * The left ventricular ejection fraction is grossly normal. Right Ventricle * The right ventricle is not well visualized. Atria * The left atrium is not well visualized. * Right atrium not well visualized. Mitral Valve * The mitral valve is not well visualized. Tricuspid Valve * The tricuspid valve is not well visualized. Pulmonic Valve * The pulmonic valve is not well visualized. MMode 2D Measurements and Calculations Ao root diam 2.9 cm Ao root area 6.8 cm\S\2 LA dimension 5.1 cm LA/Ao 1.7 LVAd ap4 33.0 cm\S\2 LVLd ap4 8.6 cm EDV(MOD-sp4) 102.1 ml EDV(sp4-el) 106.8 ml LVAs ap4 20.2 cm\S\2 LVLs ap4 6.3 cm ESV(MOD-sp4) 51.4 ml ESV(sp4-el) 54.9 ml EF(MOD-sp4) 49.6 % EF(sp4-el) 48.6 % LVAd ap2 18.5 cm\S\2 LVLd ap2 6.3 cm EDV(MOD-sp2) 44.1 ml EDV(sp2-el) 46.2 ml LVAs ap2 12.1 cm\S\2 LVLs ap2 5.6 cm ESV(MOD-sp2) 21.7 ml ESV(sp2-el) 22.2 ml EF(MOD-sp2) 50.8 % EF(sp2-el) 51.9 % LVLd %diff -37.04 % EDV(MOD-bp) 79.0 ml LVLs %diff -13.72 % ESV(MOD-bp) 35.9 ml EF(MOD-bp) 54.6 % SV(MOD-sp4) 50.7 ml SI(MOD-sp4) 23.8 ml/m\S\2 SV(MOD-sp2) 22.4 ml SI(MOD-sp2) 10.5 ml/m\S\2 SV(MOD-bp) 43.1 ml SI(MOD-bp) 20.2 ml/m\S\2 SV(sp4-el) 51.9 ml SI(sp4-el) 24.4 ml/m\S\2 SV(sp2-el) 24.0 ml SI(sp2-el) 11.3 ml/m\S\2 Doppler Measurements and Calculations MV E max luis 164.6 cm/sec MV P1/2t max luis 177.7 cm/sec MV P1/2t 68.1 msec MVA(P1/2t) 3.2 cm\S\2 MV dec slope 764.1 cm/sec\S\2 MV dec time 0.22 sec Ao V2 max 129.5 cm/sec Ao max PG 6.7 mmHg Ao max PG (full) -0.28 mmHg LV V1 max PG 7.0 mmHg LV V1 max 132.1 cm/sec
[2017-09-05] MEDS: ESCITALOPRAM OXALATE 20 MG TAB PO SCH (08:55)
[2017-09-05] MEDS: CLOPIDOGREL BISULFATE 75 MG TAB PO SCH (08:56)
[2017-09-05] MEDS: MULTIVITAMIN TAB PO SCH (08:56)
[2017-09-05] MEDS: LOSARTAN POTASSIUM 25 MG TAB PO SCH (08:56)
[2017-09-05] MEDS: METOPROLOL TARTRATE 25 MG TAB PO SCH ×2 (08:57→20:57)
[2017-09-05] MEDS ORDERED: INSULIN GLARGINE SOLOSTAR 100 UNITS/ML 3 ML PEN SC SCH (09:00)
[2017-09-05] MEDS: INSULIN ASPART 100 UNITS/ML 3 ML PEN SC SCH ×4 (09:04→21:03)
[2017-09-05] MEDS: INSULIN GLARGINE SOLOSTAR 100 UNITS/ML 3 ML PEN SC SCH ×2 (09:05→21:04)
--- NOTE | 2017-09-05 09:30 | NUR ---
Patient tearful. Emotional support offered. Patient stated he is stressed and appears distraught over the lost of his daughter and his who is battling cancer at this time. Encouraged patient to seek professional help from a therapist. Pt is a bit hesitant at this time. Will revisit at another time. Call elena in reach. Will continue to monitor.
[2017-09-05] MEDS: NICOTINE 7 MG/24 HR TDSY TD SCH (10:21)
--- NOTE | 2017-09-05 11:08 | Progress Note ---
Medicine Progress Note Date & Time of Visit: Sep 05, 2017 at 09:55. Subjective 72 yo M s/p CABG in Jun 2017 who still smokes and carries a diagnosis of COPD presented two days ago with diffuse wheezing and SOB. He was given a dose of Lasix on admission with 3L output and this was not continued. He is not on diuretics at home and does carry a diagnosis of chronic diastolic heart failure. Of note, he was asking me about salt restriction today and was surprised when I suggested he limit his daily intake to 2000mg daily. He reported to me that would be a drastic lifestyle change from his current eating habits suggesting his sodium intake is too high. He was also placed on IV solumedrol and Levaquin with breathing treatments as treatment for a COPD exacerbation. Since admission, he does feel improved and is not requiring oxygen at rest. Cardiology is evaluating him 2/2 his post-operative status and the patient is still reporting episodes of SOB that will come and go. He specifically describes these episodes "like someone is holding my nose and then letting go again." He denies any chest pain. His wheezing has resolved on exam. Objective Last 8 Hrs Date Time Temp Pulse Resp B/P (MAP) Pulse Ox O2 Delivery O2 Flow Rate FiO2 09/05/17 08:45 36.9 81 20 124/73 (90) 98 09/05/17 07:15 82 16 93 Room Air 09/05/17 04:57 36.4 86 20 126/66 (86) 91 Room Air 09/05/17 04:00 Room Air Physical Exam: GEN: obese, euvolemic, in no acute distress, alert and appropriate, not requiring oxygen and has no conversational dyspnea. HEENT: NC/AT, pupils are equal and round bilaterally, normal sclerae, MMM CARDIO: reg rate, S1/2 heard without m/g/r LUNGS: CTA bilaterally, no crackles, rales or wheezes, good diaphragmatic excursion ABD: soft, non-tender, non-distended, no rebound or guarding, +BS EXTREMITY: RP and DP palpable 2+ bilat, no LE swelling or edema, extremities are warm and well-perfused NEURO: CN 2-12 grossly intact, sensation intact throughout, no gross focal deficits. MUSC: 5/5 strength throughout, no gross focal deficits SKIN: warm and dry Laboratory Results: 09/05/17 05:37 Red Blood Count 4.30, Mean Corpuscular Volume 95.1, Mean Corpuscular Hemoglobin 32.6, Mean Corpuscular Hemoglobin Concent 34.2, Mean Platelet Volume 10.3, Neutrophils (%) (Auto) 88.3, Lymphocytes (%) (Auto) 8.0, Monocytes (%) (Auto) 3.2, Eosinophils (%) (Auto) 0.0, Basophils (%) (Auto) 0.1, Neutrophils # (Auto) 15.82, Lymphocytes # (Auto) 1.44, Monocytes # (Auto) 0.57, Eosinophils # (Auto) 0.00, Basophils # (Auto) 0.01 09/05/17 05:37 Test 09/03/17 22:50 09/03/17 22:54 09/04/17 02:55 09/04/17 05:37 Total Bilirubin 0.3 mg/dl (0.2-1) Direct Bilirubin < 0.1 mg/dl (0-0.2) Aspartate Amino Transf (AST/SGOT) 20 U/L (15-37) Alanine Aminotransferase (ALT/SGPT) 34 U/L (12-78) Alkaline Phosphatase 70 U/L (45-117) Pro-B-Type Natriuretic Peptide 5151 pg/ml (0-900) Total Protein 7.3 gm/dl (6.4-8.2) Albumin 3.6 gm/dl (3.4-5.0) Lipase 180 U/L (73-393) Bedside Troponin I < 0.030 ng/ml (0-0.045) Influenza Type A (RT-PCR) Neg for Influ A (NEG) Influenza Type B (RT-PCR) Neg for Influ B (NEG) Prothrombin Time 10.7 SECONDS (9.0-12.0) Prothromb Time International Ratio 1.0 (0.9-1.1) Activated Partial Thromboplast Time 32.2 SECONDS (21.0-31.0) Partial Thromboplastin Ratio 1.2 D-Dimer 1950 ug/L FEU (0-500) Estimated Average Glucose 154 mg/dl Hemoglobin A1c 7.0 % (4.5-5.6) Triglycerides Level 112 mg/dl (0-150) Cholesterol Level 149 mg/dl (0-200) HDL Cholesterol 27 mg/dl LDL Cholesterol, Calculated 100 mg/dl VLDL Cholesterol, Calculated 22 mg/dl Cholesterol/HDL Ratio 5.5 Beta-Hydroxybutyric Acid 5.66 mg/dL (0.2-2.81) Test 09/04/17 13:13 09/05/17 05:37 09/05/17 06:32 Troponin I < 0.015 ng/ml (0-0.045) White Blood Count 17.91 K/uL (4.8-10.8) Red Blood Count 4.30 M/uL (4.7-6.1) Hemoglobin 14.0 g/dL (14.0-18.0) Hematocrit 40.9 % (42-52) Mean Corpuscular Volume 95.1 fL (80-100) Mean Corpuscular Hemoglobin 32.6 pg (25-34) Mean Corpuscular Hemoglobin Concent 34.2 g/dl (32-36) Platelet Count 343 K/uL (130-400) Mean Platelet Volume 10.3 fL (7.4-10.4) Neutrophils (%) (Auto) 88.3 % Lymphocytes (%) (Auto) 8.0 % Monocytes (%) (Auto) 3.2 % Eosinophils (%) (Auto) 0.0 % Basophils (%) (Auto) 0.1 % Neutrophils # (Auto) 15.82 K/uL (1.4-6.5) Lymphocytes # (Auto) 1.44 K/uL (1.2-3.4) Monocytes # (Auto) 0.57 K/uL (0.11-0.59) Eosinophils # (Auto) 0.00 K/uL (0-0.5) Basophils # (Auto) 0.01 K/uL (0-0.2) RDW Standard Deviation 47.0 fL (36.4-46.3) RDW Coefficient of Variation 13.6 % (11.5-14.5) Immature Granulocyte % (Auto) 0.4 % Immature Granulocyte # (Auto) 0.07 K/uL (0.00-0.02) Anion Gap 8.0 mmol/L (3-11) Est Creatinine Clear Calc Drug Dose 86.8 ml/min Estimated GFR () 98.5 Estimated GFR (Non- 85.0 BUN/Creatinine Ratio 27.0 (10-20) Calcium Level 8.9 mg/dl (8.5-10.1) Magnesium Level 1.8 mg/dl (1.8-2.4) Bedside Glucose 223 mg/dl (70-99) Last 24 Hours Test 09/04/17 10:48 09/04/17 13:04 09/04/17 13:13 09/04/17 14:10 Bedside Glucose 286 mg/dl 258 mg/dl 238 mg/dl Troponin I < 0.015 ng/ml Test 09/04/17 15:11 09/04/17 15:57 09/04/17 17:02 09/04/17 18:10 Bedside Glucose 234 mg/dl 206 mg/dl 167 mg/dl 160 mg/dl Test 09/04/17 19:04 09/04/17 20:06 09/04/17 21:10 09/04/17 22:05 Bedside Glucose 182 mg/dl 176 mg/dl 167 mg/dl 145 mg/dl Test 09/04/17 23:02 09/05/17 00:01 09/05/17 05:37 09/05/17 06:32 Bedside Glucose 161 mg/dl 172 mg/dl 223 mg/dl White Blood Count 17.91 K/uL Red Blood Count 4.30 M/uL Hemoglobin 14.0 g/dL Hematocrit 40.9 % Mean Corpuscular Volume 95.1 fL Mean Corpuscular Hemoglobin 32.6 pg Mean Corpuscular Hemoglobin Concent 34.2 g/dl Platelet Count 343 K/uL Mean Platelet Volume 10.3 fL Neutrophils (%) (Auto) 88.3 % Lymphocytes (%) (Auto) 8.0 % Monocytes (%) (Auto) 3.2 % Eosinophils (%) (Auto) 0.0 % Basophils (%) (Auto) 0.1 % Neutrophils # (Auto) 15.82 K/uL Lymphocytes # (Auto) 1.44 K/uL Monocytes # (Auto) 0.57 K/uL Eosinophils # (Auto) 0.00 K/uL Basophils # (Auto) 0.01 K/uL RDW Standard Deviation 47.0 fL RDW Coefficient of Variation 13.6 % Immature Granulocyte % (Auto) 0.4 % Immature Granulocyte # (Auto) 0.07 K/uL Sodium Level 134 mmol/L Potassium Level 4.2 mmol/L Chloride Level 98 mmol/L Carbon Dioxide Level 28 mmol/L Anion Gap 8.0 mmol/L Blood Urea Nitrogen 24 mg/dl Creatinine 0.90 mg/dl Est Creatinine Clear Calc Drug Dose 86.8 ml/min Estimated GFR () 98.5 Estimated GFR (Non- 85.0 BUN/Creatinine Ratio 27.0 Random Glucose 217 mg/dl Calcium Level 8.9 mg/dl Magnesium Level 1.8 mg/dl Assessment & Plan 72 yo M s/p CABG in Jun 2017 who still smokes and carries a diagnosis of COPD presented two days ago with diffuse wheezing and SOB. He was given a dose of Lasix on admission with 3L output and this was not continued. He is not on diuretics at home and does carry a diagnosis of chronic diastolic heart failure. Of note, he was asking me about salt restriction today and was surprised when I suggested he limit his daily intake to 2000mg daily. He reported to me that would be a drastic lifestyle change from his current eating habits suggesting his sodium intake is too high. He was also placed on IV solumedrol and Levaquin with breathing treatments as treatment for a COPD exacerbation. Since admission, he does feel improved and is not requiring oxygen at rest. Cardiology is evaluating him 2/2 his post-operative status and the patient is still reporting episodes of SOB that will come and go. He specifically describes these episodes "like someone is holding my nose and then letting go again." He denies any chest pain. His wheezing has resolved on exam. 1. Dyspnea with hypoxia-improved/resolved, likely multifactorial related to COPD and CHF exacerbations. He has responded to treatment. Awaiting further Cardiology recs and final echo reading. Methylprednisolone IV switched to prednisone 40mg PO daily. Cont Levaquin. Duonebs PRN. 2. Acute on chronic diastolic CHF-pt responded well to one dose of IV Lasix and with SOB improved and lungs clear on exam without edema, etc, patient appears at baseline and euvolemic at this point. Cards is following. 3. Tobacco use-pt states that he is interested in quitting and would like some form of nicotine replacement on discharge to help with this. 4. CAD s/p CABG in Jun 2017-recent cardiac enzymes have titus negative this admission. Denies chest pain but is currently on scheduled nitropaste--will discuss this with Cards. Cont ASA, Plavix, Lipitor and Metoprolol. Of note, the patient has an ACEI introlerance (cough) and was switched to Losartan this admission. Pt currently denying cough. 5. Chronic LBBB 6. [id number]-up Metop, Losartan and nitrates. 7. DMII-A1C 7 indicating good baseline control. Increased this admission likely related to steroids. Pharmacy was consulted and he was temporarily placed on an insulin drip. Currently he is on Glargine with ISS and carb coverage and is improving to the low 200s this morning. Changing solumedrol to PO prednisone once daily. 8. Leukocytosis-2/2 steroid use. No signs or symptoms of active or worsening infection. 9. Depression-cont Lexapro and Ativan PRN. DVT proph: Lovenox Full code Dispo-likely to home in 1-2 days. Melaina Colon DO [facility] Hospitalist Consultants: Raiza Current Inpatient Medications: Current Inpatient Medications Medications (Trade) Dose Ordered Sig/Mariella Route Start Time Stop Time Status Last Admin Dose Admin Acetaminophen (Tylenol Tab) 650 mg Q4H PRN PO 09/04/17 01:00 10/04/17 00:59 Nitroglycerin (Nitrostat Tab) 0.4 mg UD PRN SL 09/04/17 01:00 10/04/17 00:59 Lorazepam (Ativan Tab) 0.5 mg Q6H PRN PO 09/04/17 01:45 10/04/17 01:44 Aspirin (Ecotrin Tab) 81 mg HS PO 09/04/17 21:00 10/04/17 20:59 09/04/17 21:56 81 MG Atorvastatin Calcium (Lipitor Tab) 40 mg HS PO 09/04/17 21:00 10/04/17 20:59 09/04/17 21:56 40 MG Clopidogrel Bisulfate (plAVix TAB) 75 mg DAILY PO 09/04/17 09:00 10/04/17 08:59 09/05/17 08:56 75 MG Escitalopram Oxalate (Lexapro Tab) 20 mg DAILY PO 09/04/17 09:00 10/04/17 08:59 09/05/17 08:55 20 MG Metoprolol Tartrate (Lopressor Tab) 12.5 mg BID PO 09/04/17 09:00 10/04/17 08:59 09/05/17 08:57 12.5 MG Multivitamins (Multivitamin Tab) 1 tab DAILY PO 09/04/17 09:00 10/04/17 08:59 09/05/17 08:56 1 TAB Fenofibrate (Tricor Tab) 145 mg HS PO 09/04/17 21:00 10/04/17 20:59 09/04/17 21:55 145 MG Nitroglycerin (Nitroglycerin 2% Oint) 1 inch Q6 EXT 09/04/17 06:00 10/04/17 05:59 09/05/17 06:43 1 INCH Miscellaneous (Iv Fluids Completed) 1 ea PRN PRN N/A 09/04/17 02:15 09/04/18 02:14 Glucose (Glucose 40% Gel) 15-30 GRAMS 15 GRAMS... UD PRN PO 09/04/17 02:45 10/04/17 02:44 Glucose (Glucose Chew Tab) 4-8 Tablets 4 Tabl... UD PRN PO 09/04/17 02:45 10/04/17 02:44 Dextrose (Dextrose 50% 50ML Syringe) 25-50ML OF 50% DW IV FOR... UD PRN IV 09/04/17 02:45 10/04/17 02:44 Glucagon (Glucagon Inj) 1 mg UD PRN SQ 09/04/17 02:45 10/04/17 02:44 Nicotine (Nicoderm Cq 7 Mg Patch) 1 patch QAM TD 09/04/17 09:00 10/04/17 08:59 09/04/17 09:07 1 PATCH Miscellaneous (Remove Nicoderm Patch) 1 ea HS N/A 09/04/17 21:00 10/04/17 20:59 09/04/17 21:00 1 EA Ioversol (Optiray 320) 81 ml UD PRN IV 09/04/17 09:00 09/08/17 08:59 Methylprednisolone Sodium Succinate 40 mg/Syringe 0.64 ml @ 1.5 mls/min TID IV 09/04/17 11:00 10/04/17 10:59 09/05/17 08:56 1.5 MLS/MIN Levofloxacin (Levaquin Tab) 750 mg DAILY@11 PO 09/04/17 11:00 09/11/17 10:59 09/04/17 11:59 750 MG Miscellaneous Information (Consult Glycemic Management Pharmacy) 1 ea UD PRN N/A 09/04/17 10:19 10/04/17 10:18 Ipratropium [place] (Atrovent 0.02% 0.5MG/2.5ML Neb) 0.5 mg Q6R INH 09/04/17 15:00 10/04/17 14:59 09/05/17 07:14 0.5 MG Levalbuterol (Xopenex 0.63 Mg/ 3 Ml Neb) 0.63 mg Q6R INH 09/04/17 15:00 10/04/17 14:59 09/05/17 07:15 0.63 MG Ipratropium [place] (Atrovent 0.02% 0.5MG/2.5ML Neb) 0.5 mg Q2R PRN INH 09/04/17 10:30 10/04/17 10:29 Levalbuterol (Xopenex 1.25MG/ 0.5ML Neb) 1.25 mg Q2R PRN INH 09/04/17 10:30 10/04/17 10:29 Losartan Potassium (coZAAR TAB) 50 mg QAM PO 09/05/17 09:00 10/04/17 08:59 09/05/17 08:56 50 MG Insulin Aspart (novoLOG ASPART) ACHS SC 09/04/17 16:15 10/04/17 16:14 Future hold 09/05/17 09:04 21 UNITS Insulin Glargine (Lantus Solostar Pen) 27 units BID SC 09/05/17 09:00 10/05/17 08:59 09/05/17 09:05 27 UNITS Enoxaparin Sodium (Lovenox Inj) 40 mg HS SQ 09/04/17 21:00 10/04/17 20:59 09/04/17 21:57 40 MG
[2017-09-05] MEDS: LEVOFLOXACIN 750 MG TAB PO SCH (11:57)
[2017-09-05] MEDS ORDERED: NITROGLYCERIN 2% OINTMENT 30GM TUBE EXT SCH (12:00)
--- NOTE | 2017-09-05 12:00 | NUR ---
Reassessed, see emr for detailed assessment. Alert and oriented x 4. Denies pain or sob at this time. SR on the monitor. Call elena in reach. Will continue to monitor.
--- NOTE | 2017-09-05 13:13 | Pharmacy Progress Note ---
Pharmacy Glycemic Short Note 2 Date of Service Sep 05, 2017. OUTPATIENT ANTIDIABETIC REGIMEN: * Lantus 30 units SQ AM * NovoLog 15 units SQ TIDM * HbA1c: 7% (09/04/17) ASSESSMENT: * 72yo T2DM male with good outpatient control per recent A1c * Pt with severe hyperglycemia d/t high dose IV steroids and infection; has improved with increase in insulin doses * Pt received SoluMedrol 125mg IV x 1 in ED and was then ordered Solumedrol 40mg IV TID. This has been reduced to Prednisone 40mg daily today. * BSGs were still slightly elevated this morning, but expect that this will improve with significant decrease in steroids. PLAN FOR INPATIENT GLYCEMIC CONTROL: * Basal insulin * Lantus 27 units SQ BID * anticipate that we can switch back to HS dosing tomorrow now that pt is only receiving once-daily prednisone * Bolus insulin * NovoLog per scale ACHS or Q6hrs while NPO * Goal Range: Low 100 mg/dL - High 140 mg/dL * Correction Factor: 15 mg/dL/unit * Nutritional / Prandial insulin per carb ratio of 1 unit per 5 grams CHO consumed * anticipate that parameters will require "loosening" tomorrow d/t significant reduction in steroid dose PLAN FOR DISCHARGE: * Current A1c (7%) indicates adequate glycemic control as an outpatient. * Expect that patient may return to home regimen on discharge, unless steroids continue. Patient may require some supplemental coverage while on steroids.
--- NOTE | 2017-09-05 14:00 | PROGRESS NOTE ---
DATE: 09/05/2017 FOLLOWUP VISIT SUBJECTIVE: The patient is a 72-year-old male who earlier this year underwent coronary artery bypass surgery. He was admitted with increasing shortness of breath, which is most likely a combination of chronic bronchitis from smoking and some mild diastolic heart failure. This patient is also under a great deal of emotional stress. His daughter was a victim of a homicide earlier this year and his is being treated for cancer. I think that his emotional state is definitely affecting his symptoms and the overall care. OBJECTIVE: VITAL SIGNS: Blood pressure 110/70, pulse is regular at 90 beats per minute. He is afebrile. HEENT: He is normocephalic. Pupils are equal and reactive to light. Extraocular muscles are intact bilaterally. NECK: The neck veins are flat. Carotids have good upstrokes bilaterally without bruits. Thyroid is nonpalpable. RESPIRATORY: Breath sounds equal bilaterally and clear to auscultation. CARDIOVASCULAR: Heart has a regular rhythm. Normal S1, S2. No S3, S4. No cardiac rubs or murmurs. GASTROINTESTINAL: Abdomen is soft, nontender without organomegaly. EXTREMITIES: Free of edema, digit clubbing, or cyanosis. NEUROLOGIC: Grossly intact. SKIN: Warm to touch. LYMPH NODES: Negative to palpation. LABORATORY DATA: Hemoglobin is 14.0, potassium is 4.2, creatinine 0.9. IMPRESSION: 1. Acute exacerbation of chronic obstructive pulmonary disease and chronic bronchitis. 2. Mrygq-et-oolvlin diastolic heart failure. 3. Mild left ventricular systolic dysfunction with an estimated left ventricular ejection fraction of 45%-50%. 4. Diabetes mellitus. 5. Recent coronary artery bypass surgery. 6. Depression. RECOMMENDATIONS: As outlined above, I believe the patient's mental state is contributing as much to his symptoms as his overall COPD and diastolic heart failure. He is willing to see psychiatry and I think that would be beneficial. He may benefit from counseling as an outpatient.
--- NOTE | 2017-09-05 15:38 | NUR ---
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 He had recently begun smoking 2ppd ("its my only vice") but has resolved to quit after this most recent hospitalization. He has no history of psychiatric treatment inpatient or outpatient but does have antidepressant/anti-anxiety medication prescribed by his PCP.
--- NOTE | 2017-09-05 16:00 | NUR ---
awake and alert, sitting on the edge of his bed, denies discomfort, skin warm and dry, color good, respirations non-labored, bilateral breath sounds clear but diminished, monitor shows SR, positive pulses, negative edema, abdomen soft, non-tender, positive bowel sounds
--- NOTE | 2017-09-05 20:00 | NUR ---
awake and alert, remains pain free, no change in assessment, will continue to monitor
[2017-09-05] MEDS: ASPIRIN 81 MG ECTAB PO SCH (20:57)
[2017-09-05] MEDS: ATORVASTATIN 40 MG TAB PO SCH (20:57)
[2017-09-05] MEDS: FENOFIBRATE 145 MG TAB PO SCH (20:58)
[2017-09-05] MEDS: ENOXAPARIN 40 MG/0.4 ML SYR SQ SCH (21:04)
[2017-09-06] VITALS (11 sets, daily range): BP systolic 137–172; BP diastolic 68–94; PULSE 63–109; TEMP 36.4–37.1; O2SAT 93–96
--- NOTE | 2017-09-06 00:01 | NUR ---
A/ID: REFER TO EMR FOR HEAD TO TOE ASSESSMENT. PT DENIES COMPLAINTS OF PAIN OR SHORTNESS OF BREATH AT PRESENT TIME. VSS. PT INDEPENDENT IN ROOM, AMBULATES IN HALLS. CALL CARCAMO WITHIN REACH, WILL CONTINUE TO MONITOR. UNKNOWN D/C AT THIS TIME.
[2017-09-06] MEDS: LEVALBUTEROL 0.63MG/3 ML NEB INH SCH ×4 (02:12→18:51)
[2017-09-06] MEDS: IPRATROPIUM BROMIDE NEB SOLN 0.02% 2.5 ML VIAL INH SCH ×4 (02:12→18:51)
--- NOTE | 2017-09-06 04:00 | NUR ---
a: refer to emr for head to toe assessment. pt denies complaints of pain or shortness of breath at present time. vss. pt independent in room. call elena within reach, will continue to monitor.
[2017-09-06 06:37] LABS: BASO % 0.1 %; BASO ABS # 0.01 K/uL (0-0.2); HEMATOCRIT 43.2 % (42-52); HEMOGLOBIN 14.3 g/dL (14.0-18.0); LYMPH ABS # 2.43 K/uL (1.2-3.4); MEAN CELL VOLUME 95.6 fL (80-100); MEAN CORPUSCULAR HEMOGLOBIN 31.6 pg (25-34); MEAN CORPUSCULAR HGB CONC 33.1 g/dl (32-36); MEAN PLATELET VOLUME 10.2 fL (7.4-10.4); MONO % 7.4 %; MONO ABS # 1.38 K/uL (0.11-0.59); NEUT ABS # 14.79 K/uL (1.4-6.5); PLATELET COUNT 364 K/uL (130-400); RED CELL DISTRIBUTION WIDTH CV 13.7 % (11.5-14.5); RED CELL DISTRIBUTION WIDTH SD 47.3 fL (36.4-46.3); WHITE BLOOD COUNT 18.71 K/uL (4.8-10.8)
[2017-09-06 07:14] LABS: CREATININE 0.71 mg/dl (0.60-1.40); POTASSIUM 3.9 mmol/L (3.5-5.1)
[2017-09-06] MEDS: NICOTINE 7 MG/24 HR TDSY TD SCH (07:35)
[2017-09-06] MEDS: LOSARTAN POTASSIUM 25 MG TAB PO SCH (07:36)
[2017-09-06] MEDS: CLOPIDOGREL BISULFATE 75 MG TAB PO SCH (07:36)
[2017-09-06] MEDS: ESCITALOPRAM OXALATE 20 MG TAB PO SCH (07:37)
[2017-09-06] MEDS: MULTIVITAMIN TAB PO SCH (07:37)
[2017-09-06] MEDS: FUROSEMIDE 20 MG TAB PO SCH (07:37)
[2017-09-06] MEDS: METOPROLOL TARTRATE 25 MG TAB PO SCH ×2 (07:38→21:47)
[2017-09-06] MEDS: INSULIN ASPART 100 UNITS/ML 3 ML PEN SC SCH ×4 (07:44→21:34)
--- NOTE | 2017-09-06 08:00 | NUR ---
A: Awake, alert and oriented X4 sitting on side of bed waiting for breakfast in no acute distress. Initial assessment completed, refer to EMR for details. NSR on lunchroom monitor. Utilizing flutter valve with good response of clear mucous expectoration. Pt pleased, expresses anticipation of discharge pending MD visit today. Emotional support provided. Call elena within easy reach. Will continue to monitor.
--- NOTE | 2017-09-06 10:29 | Pharmacy Progress Note ---
Glycemic Control Progress Note Date of Service Sep 06, 2017. Scope Glycemic Pharmacist consulted for glycemic control to write orders per [facility] inpatient glycemic control protocol. Objective Accuchecks BSG (last 24hrs): Test 09/05/17 11:25 09/05/17 16:18 09/05/17 20:21 09/06/17 06:12 Bedside Glucose 287 mg/dl (70-99) 194 mg/dl (70-99) 233 mg/dl (70-99) Random Glucose 147 mg/dl (70-99) Test 09/06/17 06:24 Bedside Glucose 140 mg/dl (70-99) HbA1c: Test 09/04/17 05:37 Hemoglobin A1c 7.0 % (4.5-5.6) H Recent Pertinent Medications The patient is currently receiving: * Basal insulin: Lantus 27 units every 12 hours was given yesterday ; currently no orders for Lantus for today * Correctional Insulin: Novolog Correction per scale ACHS Goal Range: Low 110 mg/dL - High 140 mg/dL Correction Factor: 15 mg/dL/unit * Prandial insulin: Per carb ratio of 1 unit per 5 grams CHO consumed Outpatient Anti-Diabetic Meds * Lantus 30 units SQ AM * NovoLog 15 units SQ TIDM * HbA1c: 7% (09/04/17) Assessment & Plan ASSESSMENT: 09/06/17 * BSGs have ranged 194-284 over the last 24 hrs * High dose IV steroids were tapered yesterday and patient will now be receiving ~1/3 as much corticosteroid per day. One would expect him to be more insulin sensitive today. His fasting AM BSG is already improved. * Fasting BSG at goal this AM with 54 units of Lantus on board. Will resume the patient's home dose of Lantus in the PM for now. Once daily prednisone in the AM may require an increase in this dose or we may consider adding a dose of NPH in the AM if he appears basal deficient throughout the day. * Post-prandial BSGs were elevated yesterday using current CR, but this was with a higher steroid dose. Perhaps he will be better controlled today with the lower steroid dose. Given the patient usually takes 15 units of Novolog with meals as an outpatient, I would not be surprised if he requires more prandial insulin than is currently ordered. Will follow post-prandial trend today and adjust CR as needed. PLAN FOR INPATIENT GLYCEMIC CONTROL: * Lantus 30 units SQ Q HS * Continuing correction factor of 15 mg/dl/unit * Continuing carb ratio of 1 unit per 5 grams CHO consumed * Continuing goal range of Low 110 mg/dL - High 140 mg/dL * Reassess insulin doses with each step down in steroid dose * Please note that the plan above was derived based on current level of insulin resistance and hospital stress. These recommendations are appropriate for inpatient admission only. Plan of care upon discharge will need to be reassessed to avoid potential outpatient hypo/hyperglycemia. Thank you.
[2017-09-06] MEDS: LEVOFLOXACIN 750 MG TAB PO SCH (11:38)
--- NOTE | 2017-09-06 12:00 | NUR ---
A: Sitting on side of bed. Ambulates freely in room with steady gait. Offers no complaints. Appetite good for lunch. Call elena within easy reach. Will continue to monitor.
--- NOTE | 2017-09-06 12:15 | PROGRESS NOTE ---
DATE: 09/06/2017 FOLLOWUP VISIT SUBJECTIVE: The patient is a 72-year-old male, who earlier this year underwent coronary artery bypass surgery. He was admitted with increasing shortness of breath, which is most likely a combination of chronic bronchitis from smoking and some mild diastolic heart failure. The patient has also been under a great deal of emotional stress at home and psychiatry's help is most appreciated. Since yesterday, he has been using a flutter valve given to him by pulmonary. He states that this has worked very well for him and he is able to cough out his secretions. OBJECTIVE: GENERAL: He is alert and oriented. VITAL SIGNS: Blood pressure is 160/70. Pulse is regular at 100 beats per minute. He is afebrile. HEENT: Normocephalic. Pupils are equal and reactive to light. Extraocular muscles are intact bilaterally. NECK: The neck veins are flat. Carotids have good upstrokes bilaterally without bruits. Thyroid is nonpalpable. RESPIRATORY: Breath sounds are equal bilaterally and clear to auscultation. CARDIOVASCULAR: Heart has a regular rhythm. Normal S1 and S2. No S3 or S4. No cardiac rubs or murmurs. GASTROINTESTINAL: Abdomen is soft and nontender without organomegaly. EXTREMITIES: Free of edema, digit clubbing, or cyanosis. NEUROLOGIC: Grossly intact. SKIN: Warm to touch. LYMPH NODES: Negative to palpation. IMPRESSION: 1. Acute exacerbation of chronic obstructive lung disease and chronic bronchitis. 2. Acute on chronic diastolic heart failure. 3. Mild left ventricular systolic dysfunction with estimated left ventricular ejection fraction of 45%-50%. 4. Cigarette smoking. 5. Diabetes mellitus. 6. Recent coronary artery bypass surgery. 7. Depression. RECOMMENDATIONS: The patient's blood pressure is not well controlled. I am going to increase his losartan to 100 mg daily. Otherwise, he is doing well and I would anticipate that he may be able to be discharged soon.
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
--- NOTE | 2017-09-06 14:22 | NUR ---
A: Report called to [facility] for transfer to room 401. Opportunity given to ask/answer questions. quality assurance monitor body removed. Personal belongings gathered by pt and transferred along with medications/chart via wheelchair in no acute distress.
--- NOTE | 2017-09-06 15:00 | NUR ---
A NOTE- PT RECEIVED TO ROOM 401 FROM PCU. PT IS ALERT AND ORIENTED. DENIES PAIN OR SOB. ROOM AIR SAT WNL/.SALINE LOCK ITNACT LT AC REGION. ORIENTED TO ROOM AND CALLBELL.
[2017-09-06] MEDS ORDERED: ZOLPIDEM TARTRATE 5 MG TAB PO PRN (16:30)
--- NOTE | 2017-09-06 18:02 | Progress Note ---
Medicine Progress Note Date & Time of Visit: Sep 06, 2017 at 13:07. Subjective 72 yo M s/p CABG in Jun 2017 who still smokes and carries a diagnosis of COPD presented with diffuse wheezing and SOB. He was given a dose of Lasix on admission with 3L output and improvement in breathing. He is not on diuretics at home and does carry a diagnosis of chronic diastolic heart failure. Lasix 20mg has been started by cardiology this admission. He was also placed on IV solumedrol and Levaquin with breathing treatments as treatment for a COPD exacerbation. Since admission, he does feel improved and is not requiring oxygen at rest. Cardiology is evaluating him 2/2 his post-operative status and the patient is still reporting episodes of SOB that will come and go. There is not thought to be any post-op issue going on at this time. His dyspnea episodes described yesterday continue to lessen and improve. Tolerating PO, denies chest pain or SOB. Has been ambulating without respiratory issues. Objective Last 8 Hrs Date Time Temp Pulse Resp B/P (MAP) Pulse Ox O2 Delivery O2 Flow Rate FiO2 09/06/17 12:31 36.8 66 18 149/68 (95) 96 09/06/17 12:00 Room Air 09/06/17 08:28 37.1 109 18 172/76 (108) 96 09/06/17 08:00 Room Air 09/06/17 07:10 65 16 96 Room Air Physical Exam: GEN: obese, euvolemic, in no acute distress, alert and appropriate, not requiring oxygen and has no conversational dyspnea. HEENT: NC/AT, pupils are equal and round bilaterally, normal sclerae, MMM CARDIO: reg rate, S1/2 heard without m/g/r LUNGS: CTA bilaterally, no crackles, rales or wheezes, good diaphragmatic excursion ABD: soft, non-tender, non-distended, no rebound or guarding, +BS EXTREMITY: RP and DP palpable 2+ bilat, no LE swelling or edema, extremities are warm and well-perfused NEURO: CN 2-12 grossly intact, sensation intact throughout, no gross focal deficits. MUSC: 5/5 strength throughout, no gross focal deficits SKIN: warm and dry Laboratory Results: 09/06/17 06:12 Red Blood Count 4.52, Mean Corpuscular Volume 95.6, Mean Corpuscular Hemoglobin 31.6, Mean Corpuscular Hemoglobin Concent 33.1, Mean Platelet Volume 10.2, Neutrophils (%) (Auto) 79.0, Lymphocytes (%) (Auto) 13.0, Monocytes (%) (Auto) 7.4, Eosinophils (%) (Auto) 0.0, Basophils (%) (Auto) 0.1, Neutrophils # (Auto) 14.79, Lymphocytes # (Auto) 2.43, Monocytes # (Auto) 1.38, Eosinophils # (Auto) 0.00, Basophils # (Auto) 0.01 09/06/17 06:12 Test 09/03/17 22:50 09/03/17 22:54 09/04/17 02:55 09/04/17 05:37 Total Bilirubin 0.3 mg/dl (0.2-1) Direct Bilirubin < 0.1 mg/dl (0-0.2) Aspartate Amino Transf (AST/SGOT) 20 U/L (15-37) Alanine Aminotransferase (ALT/SGPT) 34 U/L (12-78) Alkaline Phosphatase 70 U/L (45-117) Pro-B-Type Natriuretic Peptide 5151 pg/ml (0-900) Total Protein 7.3 gm/dl (6.4-8.2) Albumin 3.6 gm/dl (3.4-5.0) Lipase 180 U/L (73-393) Bedside Troponin I < 0.030 ng/ml (0-0.045) Influenza Type A (RT-PCR) Neg for Influ A (NEG) Influenza Type B (RT-PCR) Neg for Influ B (NEG) Prothrombin Time 10.7 SECONDS (9.0-12.0) Prothromb Time International Ratio 1.0 (0.9-1.1) Activated Partial Thromboplast Time 32.2 SECONDS (21.0-31.0) Partial Thromboplastin Ratio 1.2 D-Dimer 1950 ug/L FEU (0-500) Estimated Average Glucose 154 mg/dl Hemoglobin A1c 7.0 % (4.5-5.6) Triglycerides Level 112 mg/dl (0-150) Cholesterol Level 149 mg/dl (0-200) HDL Cholesterol 27 mg/dl LDL Cholesterol, Calculated 100 mg/dl VLDL Cholesterol, Calculated 22 mg/dl Cholesterol/HDL Ratio 5.5 Beta-Hydroxybutyric Acid 5.66 mg/dL (0.2-2.81) Test 09/04/17 13:13 09/06/17 06:12 09/06/17 16:29 Troponin I < 0.015 ng/ml (0-0.045) White Blood Count 18.71 K/uL (4.8-10.8) Red Blood Count 4.52 M/uL (4.7-6.1) Hemoglobin 14.3 g/dL (14.0-18.0) Hematocrit 43.2 % (42-52) Mean Corpuscular Volume 95.6 fL (80-100) Mean Corpuscular Hemoglobin 31.6 pg (25-34) Mean Corpuscular Hemoglobin Concent 33.1 g/dl (32-36) Platelet Count 364 K/uL (130-400) Mean Platelet Volume 10.2 fL (7.4-10.4) Neutrophils (%) (Auto) 79.0 % Lymphocytes (%) (Auto) 13.0 % Monocytes (%) (Auto) 7.4 % Eosinophils (%) (Auto) 0.0 % Basophils (%) (Auto) 0.1 % Neutrophils # (Auto) 14.79 K/uL (1.4-6.5) Lymphocytes # (Auto) 2.43 K/uL (1.2-3.4) Monocytes # (Auto) 1.38 K/uL (0.11-0.59) Eosinophils # (Auto) 0.00 K/uL (0-0.5) Basophils # (Auto) 0.01 K/uL (0-0.2) RDW Standard Deviation 47.3 fL (36.4-46.3) RDW Coefficient of Variation 13.7 % (11.5-14.5) Immature Granulocyte % (Auto) 0.5 % Immature Granulocyte # (Auto) 0.10 K/uL (0.00-0.02) Anion Gap 9.0 mmol/L (3-11) Est Creatinine Clear Calc Drug Dose 110.1 ml/min Estimated GFR () 108.6 Estimated GFR (Non- 93.7 BUN/Creatinine Ratio 43.8 (10-20) Calcium Level 9.0 mg/dl (8.5-10.1) Magnesium Level 2.1 mg/dl (1.8-2.4) Bedside Glucose 208 mg/dl (70-99) Last 24 Hours Test 09/05/17 16:18 09/05/17 20:21 09/06/17 06:12 09/06/17 06:24 Bedside Glucose 194 mg/dl 233 mg/dl 140 mg/dl White Blood Count 18.71 K/uL Red Blood Count 4.52 M/uL Hemoglobin 14.3 g/dL Hematocrit 43.2 % Mean Corpuscular Volume 95.6 fL Mean Corpuscular Hemoglobin 31.6 pg Mean Corpuscular Hemoglobin Concent 33.1 g/dl Platelet Count 364 K/uL Mean Platelet Volume 10.2 fL Neutrophils (%) (Auto) 79.0 % Lymphocytes (%) (Auto) 13.0 % Monocytes (%) (Auto) 7.4 % Eosinophils (%) (Auto) 0.0 % Basophils (%) (Auto) 0.1 % Neutrophils # (Auto) 14.79 K/uL Lymphocytes # (Auto) 2.43 K/uL Monocytes # (Auto) 1.38 K/uL Eosinophils # (Auto) 0.00 K/uL Basophils # (Auto) 0.01 K/uL RDW Standard Deviation 47.3 fL RDW Coefficient of Variation 13.7 % Immature Granulocyte % (Auto) 0.5 % Immature Granulocyte # (Auto) 0.10 K/uL Sodium Level 136 mmol/L Potassium Level 3.9 mmol/L Chloride Level 99 mmol/L Carbon Dioxide Level 28 mmol/L Anion Gap 9.0 mmol/L Blood Urea Nitrogen 31 mg/dl Creatinine 0.71 mg/dl Est Creatinine Clear Calc Drug Dose 110.1 ml/min Estimated GFR () 108.6 Estimated GFR (Non- 93.7 BUN/Creatinine Ratio 43.8 Random Glucose 147 mg/dl Calcium Level 9.0 mg/dl Magnesium Level 2.1 mg/dl Test 09/06/17 11:22 Bedside Glucose 171 mg/dl Assessment & Plan 72 yo M s/p CABG in Jun 2017 who still smokes and carries a diagnosis of COPD presented with diffuse wheezing and SOB. He was given a dose of Lasix on admission with 3L output and improvement in breathing. He is not on diuretics at home and does carry a diagnosis of chronic diastolic heart failure. Lasix 20mg has been started by cardiology this admission. He was also placed on IV solumedrol and Levaquin with breathing treatments as treatment for a COPD exacerbation. Since admission, he does feel improved and is not requiring oxygen at rest. Cardiology is evaluating him 2/2 his post-operative status and the patient is still reporting episodes of SOB that will come and go. There is not thought to be any post-op issue going on at this time. His dyspnea episodes described yesterday continue to lessen and improve. 1. Dyspnea with hypoxia-improved/resolved, likely multifactorial related to COPD and CHF exacerbations. He has responded to treatment. Cont prednisone, Levaquin and Duonebs PRN. Cont Lasix 20mg PO daily. 2. Acute on chronic diastolic CHF-plan as above. 3. Acute COPD exacerbation-plan as above. 4. Tobacco use-pt states that he is interested in quitting and would like some form of nicotine replacement on discharge to help with this. 5. CAD s/p CABG in Jun 2017-recent cardiac enzymes have titus negative this admission. Cont ASA, Plavix, Lipitor and Metoprolol. Of note, the patient has an ACEI introlerance (cough) and was switched to Losartan this admission. Pt currently denying cough. 5. Chronic LBBB 6. HTN-slightly uncontrolled-on Metop, Losartan and nitrates. Losartan was increased per Cards today. 7. DMII-A1C 7 indicating good baseline control. Increased this admission likely related to steroids. Pharmacy was consulted and he was temporarily placed on an insulin drip. Currently he is on Glargine with ISS and carb coverage and is more controlled. 8. Leukocytosis-2/2 steroid use. No signs or symptoms of active or worsening infection. 9. Depression-cont Lexapro and Ativan PRN. Psych consult today recommending outpatient psychotherapy and adjustment of Lexapro to evenings. DVT proph: Lovenox Full code Dispo-likely to home in am. Melania Colon DO [facility] Hospitalist Consultants: Raiza Current Inpatient Medications: Current Inpatient Medications Medications (Trade) Dose Ordered Sig/Mariella Route Start Time Stop Time Status Last Admin Dose Admin Acetaminophen (Tylenol Tab) 650 mg Q4H PRN PO 09/04/17 01:00 10/04/17 00:59 Nitroglycerin (Nitrostat Tab) 0.4 mg UD PRN SL 09/04/17 01:00 10/04/17 00:59 Lorazepam (Ativan Tab) 0.5 mg Q6H PRN PO 09/04/17 01:45 10/04/17 01:44 Aspirin (Ecotrin Tab) 81 mg HS PO 09/04/17 21:00 10/04/17 20:59 09/05/17 20:57 81 MG Atorvastatin Calcium (Lipitor Tab) 40 mg HS PO 09/04/17 21:00 10/04/17 20:59 09/05/17 20:57 40 MG Clopidogrel Bisulfate (plAVix TAB) 75 mg DAILY PO 09/04/17 09:00 10/04/17 08:59 09/06/17 07:36 75 MG Escitalopram Oxalate (Lexapro Tab) 20 mg DAILY PO 09/04/17 09:00 10/04/17 08:59 09/06/17 07:37 20 MG Metoprolol Tartrate (Lopressor Tab) 12.5 mg BID PO 09/04/17 09:00 10/04/17 08:59 09/06/17 07:38 12.5 MG Multivitamins (Multivitamin Tab) 1 tab DAILY PO 09/04/17 09:00 10/04/17 08:59 09/06/17 07:37 1 TAB Fenofibrate (Tricor Tab) 145 mg HS PO 09/04/17 21:00 10/04/17 20:59 09/05/17 20:58 145 MG Miscellaneous (Iv Fluids Completed) 1 ea PRN PRN N/A 09/04/17 02:15 09/04/18 02:14 Glucose (Glucose 40% Gel) 15-30 GRAMS 15 GRAMS... UD PRN PO 09/04/17 02:45 10/04/17 02:44 Glucose (Glucose Chew Tab) 4-8 Tablets 4 Tabl... UD PRN PO 09/04/17 02:45 10/04/17 02:44 Dextrose (Dextrose 50% 50ML Syringe) 25-50ML OF 50% DW IV FOR... UD PRN IV 09/04/17 02:45 10/04/17 02:44 Glucagon (Glucagon Inj) 1 mg UD PRN SQ 09/04/17 02:45 10/04/17 02:44 Nicotine (Nicoderm Cq 7 Mg Patch) 1 patch QAM TD 09/04/17 09:00 1/24/18 08:59 09/06/17 07:35 1 PATCH Miscellaneous (Remove Nicoderm Patch) 1 ea HS N/A 09/04/17 21:00 10/04/17 20:59 09/05/17 20:56 1 EA Ioversol (Optiray 320) 81 ml UD PRN IV 09/04/17 09:00 09/08/17 08:59 Levofloxacin (Levaquin Tab) 750 mg DAILY@11 PO 09/04/17 11:00 09/11/17 10:59 09/06/17 11:38 750 MG Miscellaneous Information (Consult Glycemic Management Pharmacy) 1 ea UD PRN N/A 09/04/17 10:19 10/04/17 10:18 Ipratropium Bucks (Atrovent 0.02% 0.5MG/2.5ML Neb) 0.5 mg Q6R INH 09/04/17 15:00 10/04/17 14:59 09/06/17 07:10 0.5 MG Levalbuterol (Xopenex 0.63 Mg/ 3 Ml Neb) 0.63 mg Q6R INH 09/04/17 15:00 10/04/17 14:59 09/06/17 07:10 0.63 MG Ipratropium Bucks (Atrovent 0.02% 0.5MG/2.5ML Neb) 0.5 mg Q2R PRN INH 09/04/17 10:30 10/04/17 10:29 Levalbuterol (Xopenex 1.25MG/ 0.5ML Neb) 1.25 mg Q2R PRN INH 09/04/17 10:30 10/04/17 10:29 Insulin Aspart (novoLOG ASPART) ACHS SC 09/04/17 16:15 10/04/17 16:14 Future hold 09/06/17 11:40 9 UNITS Enoxaparin Sodium (Lovenox Inj) 40 mg HS SQ 09/04/17 21:00 10/04/17 20:59 09/05/17 21:04 40 MG Prednisone (PredniSONE TAB) 40 mg DAILY PO 09/05/17 14:00 10/05/17 13:59 09/06/17 07:36 40 MG Furosemide (Lasix Tab) 20 mg QAM PO 09/06/17 09:00 10/06/17 08:59 09/06/17 07:37 20 MG Insulin Glargine (Lantus Solostar Pen) 30 units HS SC 09/06/17 21:00 10/06/17 20:59 Losartan Potassium (coZAAR TAB) 100 mg QAM PO 09/07/17 09:00 10/04/17 08:59
[2017-09-06] MEDS ORDERED: INSULIN GLARGINE SOLOSTAR 100 UNITS/ML 3 ML PEN SC SCH (21:00)
[2017-09-06] MEDS: ENOXAPARIN 40 MG/0.4 ML SYR SQ SCH (21:39)
[2017-09-06] MEDS: ASPIRIN 81 MG ECTAB PO SCH (21:39)
[2017-09-06] MEDS: ATORVASTATIN 40 MG TAB PO SCH (21:40)
[2017-09-06] MEDS: FENOFIBRATE 145 MG TAB PO SCH (21:41)
--- NOTE | 2017-09-06 22:00 | NUR ---
ID: A/O X 3 - PLEASANT - VSS - HL - RA SATS WNL - LUNGS DIMINISHED - BS+ - INDEPENDENT IN ROOM - BSG 279 10u NOVOLOG - 30u LANTUS ADMINISTERED - PROVIDED HS SNACK - D/C UNCERTAIN
[2017-09-07 02:15] VITALS: PULSE 63; O2SAT 95
[2017-09-07] MEDS: LEVALBUTEROL 0.63MG/3 ML NEB INH SCH ×3 (02:15→14:12)
[2017-09-07] MEDS: IPRATROPIUM BROMIDE NEB SOLN 0.02% 2.5 ML VIAL INH SCH ×3 (02:15→14:12)
[2017-09-07 07:01] VITALS: PULSE 82; O2SAT 93
[2017-09-07 07:19] VITALS: BP 130/74; PULSE 79; TEMP 36.6; O2SAT 92
[2017-09-07] MEDS ORDERED: NovoLIN-N (NPH) PER UNIT CHARGE SQ ONE (07:30)
[2017-09-07] MEDS ORDERED: LOSARTAN POTASSIUM 50 MG TAB PO SCH (08:00)
[2017-09-07] MEDS: FUROSEMIDE 20 MG TAB PO SCH (08:44)
[2017-09-07] MEDS: METOPROLOL TARTRATE 25 MG TAB PO SCH (08:44)
[2017-09-07] MEDS: MULTIVITAMIN TAB PO SCH (08:44)
[2017-09-07] MEDS: CLOPIDOGREL BISULFATE 75 MG TAB PO SCH (08:45)
[2017-09-07] MEDS: NICOTINE 7 MG/24 HR TDSY TD SCH (08:45)
[2017-09-07] MEDS: INSULIN ASPART 100 UNITS/ML 3 ML PEN SC SCH ×3 (08:49→17:45)
--- NOTE | 2017-09-07 09:16 | Pharmacy Progress Note ---
Pharmacy Glycemic Short Note 2 Date of Service Sep 07, 2017. OUTPATIENT ANTIDIABETIC REGIMEN: * Lantus 30 units SQ HS * NovoLog 15 units SQ TIDM * HbA1c: 7% (09/04/17) ASSESSMENT: * 72yo T2DM male with good outpatient control per recent A1c * Pt with steroid induced hyperglycemia * Over past 24 hours - steroids tapered to Prednisone 40 mg PO daily, which has been continued today * BSGs climbed throughout the evening into bedtime due to PO prednisone * Tighten carb ratio slightly and initiate NPH today (~0.2 units/kg) to mimic PO prednisone kinetics, re-evaluate dose in the AM PLAN FOR INPATIENT GLYCEMIC CONTROL: * Continue Basal insulin * Lantus 30 units SQ HS * Add NPH 20 units X 1 this AM - continue to titrate based on BSG response and steroid taper * Tighten Bolus insulin * NovoLog per scale ACHS or Q6hrs while NPO * Goal Range: Low 100 mg/dL - High 140 mg/dL * Correction Factor: 15 mg/dL/unit * Nutritional / Prandial insulin per carb ratio of 1 unit per 4 grams CHO consumed PLAN FOR DISCHARGE: * Current A1c (7%) indicates adequate glycemic control as an outpatient. * Expect that patient may return to home regimen on discharge, unless steroids continue. Patient may require some supplemental coverage while on steroids.
[2017-09-07] MEDS: LEVOFLOXACIN 750 MG TAB PO SCH (11:06)
[2017-09-07] MEDS ORDERED: LOSA1TAB38 PO (11:21)
[2017-09-07] MEDS ORDERED: NICO7DIS7 TD (11:21)
[2017-09-07] MEDS ORDERED: LVQ750 PO (11:21)
[2017-09-07 14:12] VITALS: PULSE 64; O2SAT 95
[2017-09-07 15:02] VITALS: BP 107/57; PULSE 65; TEMP 36.7; O2SAT 93
--- NOTE | 2017-09-07 16:34 | Discharge Summary ---
Discharge Summary Date of Service Sep 07, 2017. Discharge Summary Admission Date: Sep 04, 2017 at 01:40 Discharge Date: Sep 07, 2017 Discharge Disposition: Home Principal Diagnosis: Dyspnea with hypoxia 2/2 acute COPD exacerbation and acute CHF exacerbation Tobacco use CAD s/p CABG in Jun 2017 Chronic LBBB HTN DMII Leukocytosis Depression Procedures: None. Vaccinations: None. Consultations: Raiza Pending Studies/Follow-Up: see instructions below. Medication Reconciliation New Medications: Levofloxacin (Levofloxacin) 750 Mg Tab 750 MG PO DAILY@11 for 3 Days, #3 TAB Losartan Potassium (Cozaar) 100 Mg Tab 1 TAB PO DAILY for 30 Days, #30 TAB 3 Refills Nicotine (Nicoderm Cq 7 Mg Patch) 7 Mg/24 Hr Dis 1 PATCH TD QAM for 15 Days, #15 PATCH 3 Refills Continued Medications: Aspirin (Aspirin Ec) 81 Mg Tab 81 MG PO HS Atorvastatin (Lipitor) 40 Mg Tab 40 MG PO HS, TAB Clopidogrel Bisulfate (Clopidogrel) 75 Mg Tab 75 MG PO DAILY, TAB Escitalopram Oxalate (Lexapro) 20 Mg Tab 20 MG PO HS, TAB Fenofibrate (Tricor ) 134 Mg Cap 134 MG PO HS, CAP Insulin Aspart (Novolog Flexpen) 100 Units/Ml Inj 15 UNITS SC TIDM Insulin Glargine (Lantus Solostar) 100 Unit/Ml Inj 30 UNITS SC HS, PEN Isosorbide Dinitrate (Isosorbide Dinitrate) 10 Mg Tab 10 MG PO BID Metoprolol Tartrate (Lopressor) (Lopressor) 25 Mg Tab 12.5 MG PO BID, TAB Multiple Vitamin (Multi Vitamin) 1 Tab Tab 1 TAB PO DAILY Nitroglycerin (Nitrostat) 0.4 Mg Tab 0.4 MG UT UD PRN for Chest Pain, BTL Discontinued Medications: Lisinopril (Lisinopril) 2.5 Mg Tab 2.5 MG PO DAILY, TAB Admission Information HPI (per Admitting provider): 72 YO male followed by Dr. Viet Holly for Family Medicine and Dr. Bermeo for Cardiology. History of coronary artery disease, hypertension, COPD, diabetes, and other problems noted below. Has been under tremendous stress in recent months- daughter was homicide victim and has cancer. Underwent cardiac cath 06/16/17 and found to have severe multivessel disease. Transferred to [facility] where he underwent CABG with YAN to LAD and saphenous vein grafts to circumflex and ramus intermedius. Since his CABG he has had 2 bouts of chest pain treated with short courses of ibuprofen. He has not taken any nitroglycerin. He has noted a mild nonproductive cough over the past 1-2 days. No fever, no pharyngitis. This afternoon he noted dyspnea at rest. Cough was no worse. No chest pain. In the ED he received DuoNeb treatment and IV methylprednisolone. O2 sats as low as 88% on RA. Persistent dyspnea. In the ED he had some mild left parasternal chest discomfort. . Physical Exam (per Admitting): General Appearance: + mild distress, + obese Head: normocephalic, atraumatic Eyes: normal inspection, PERRL, EOMI, sclerae normal, + pertinent finding ( conjunctivae clear) ENT: hearing grossly normal, pharynx normal, + pertinent finding (upper and lower dentures) Neck: supple, no adenopathy, thyroid normal, trachea midline Respiratory/Chest: + pertinent finding (bibasilar rales, mild wheezing) Cardiovascular: regular rate, rhythm, no edema, no JVD ((althought neck veins difficult to assess due to body habitus)), no murmur, normal peripheral pulses, + gallop/S4 Abdomen/GI: normal bowel sounds, non tender, soft, no organomegaly, no pulsatile mass Extremities/Musculoskelatal: normal inspection, no calf tenderness, normal capillary refill, no pedal edema, + pertinent finding (no diabetic foot lesions) Neurologic/Psych: game programer II-XII nml as tested (PERRL, EOMI, no facial palsy, no dysarthria), no motor/sensory deficits (motor strength grossly intact), alert , oriented x 3, + depressed affect Skin: normal color, warm/dry, + pertinent finding (papules on lower extremities) Lymphatic: no adenopathy (cervical) Hospital Course 72 yo M s/p CABG in Jun 2017 who still smokes and carries a diagnosis of COPD presented with diffuse wheezing and SOB. He was given a dose of Lasix on admission with 3L output and improvement in breathing. He is not on diuretics at home and does carry a diagnosis of chronic diastolic heart failure. Lasix 20mg has been started by cardiology this admission. He was also placed on IV solumedrol and Levaquin with breathing treatments as treatment for a COPD exacerbation. Since admission, he does feel improved and is not requiring oxygen at rest. Cardiology is evaluating him 2/2 his post-operative status and the patient is still reporting episodes of SOB that will come and go. There is not thought to be any post-op (CABG) issue going on at this time. His dyspnea episodes continue to lessen and improve. 1. Dyspnea with hypoxia-improved/resolved, likely multifactorial related to COPD and CHF exacerbations. He has responded to treatment. Cont prednisone, Levaquin and Duonebs PRN. Cont Lasix 20mg PO daily. 2. Acute on chronic diastolic CHF-plan as above. 3. Acute COPD exacerbation-plan as above. 4. Tobacco use-pt states that he is interested in quitting and would like some form of nicotine replacement on discharge to help with this. 5. CAD s/p CABG in Jun 2017-recent cardiac enzymes have titus negative this admission. Cont ASA, Plavix, Lipitor and Metoprolol. Of note, the patient has an ACEI introlerance (cough) and was switched to Losartan this admission. Pt currently denying cough. 5. Chronic LBBB 6. HTN-slightly uncontrolled-on Metop, Losartan and nitrates. Losartan was increased per Cards today. 7. DMII-A1C 7 indicating good baseline control. Increased this admission likely related to steroids. Pharmacy was consulted and he was temporarily placed on an insulin drip. Currently he is on Glargine with ISS and carb coverage and is more controlled. 8. Leukocytosis-2/2 steroid use. No signs or symptoms of active or worsening infection. 9. Depression-cont Lexapro and Ativan PRN. Psych consult today recommending outpatient psychotherapy and adjustment of Lexapro to evenings. On day of discharge he was ambulating and mentating at baseline and reliably afebrile and not requiring supplemental oxygen. He was hemodynamically stable and was tolerating PO. He was discharged in stable condition. Total time spent on discharge = 60 minutes This includes examination of the patient, discharge planning, medication reconciliation, and communication with other providers. Discharge Instructions [facility] [address] [place] [address] Discharge Heart Failure (CHF) Patient Name: Collin Al Unit Number: [id number] Date of : 1945 Patient Status: Admitted Inpatient Attending Doctor: Melania Colon DO DI: CHF v4 Discharge Instructions Date of Service Sep 07, 2017. Admission Reason for Admission: Dyspnea, Hypoxia Discharge Discharge Diagnosis / Problem: Acute COPD exacerb, Acute on chronic diastolic CHF Discharge Goals Goal(s): Prevent Disease Progression Activity Recommendations Activity Limitations: per Instructions/Follow-up section . Instructions / Follow-Up Instructions / Follow-Up Call your Primary Care doctor if any of the following symptoms or problems start or get worse: * Shortness of breath or difficulty breathing * Wake up at night short of breath * Chest pain * Cough * Swelling of your hands, feet, or legs * More fatigued or tired with your normal activity * Palpitations - sudden fast heart beats WEIGHT * Weigh yourself every morning after using the bathroom. * Use the same scale. * Wear the same amount of clothing. * Write your weight down on a chart. * Call your Primary Care doctor if you gain more than 2-3 pounds in 1-2 days. MEDICATIONS * Use this discharge instruction sheet for medication instructions. * Take your medications at the time your doctor ordered. * Do not skip a dose of your medicines. * If you miss a dose of medicine, take it as soon as possible, but DO NOT DOUBLE A DOSE. * Read your medicine information when you get home. * Know all of the side effects of your medicine. If in doubt, ask your pharmacist * Call your Primary Care doctor's office if you have any side effects. * Be sure all of your doctors know what medicine and herbs you take (including cold, flu, and herbal medicine). Take the following with you to your follow-up doctor appointments: * Weight Chart * Medication List * List of questions Do not drink excessive alcohol, beer or wine. ADDITIONAL PROVIDER INSTRUCTIONS: -Please take all medications as instructed. -Please note that your are not to take Lisinopril any longer. Instead you are taking LOSARTAN for your blood pressure control. -New prescriptions were sent electronically to the pharmacy we have on file. -You were found to have two lung nodules that will need a follow-up CT scan in 12 months. This should be discussed with Dr. Holly at your follow-up appointment. -You have a follow-up appointment from this hospitalization with Dr. Viet Holly on 09/14 @ 2:55pm. It was a pleasure taking care of you! Call if you have any questions or problems. You can reach a [facility] hospitalist on duty at [facility] 24 hours a day by calling [phone]. Take care of yourself. DO [facility] Current Hospital Diet Patient's current hospital diet: AHA Diet (Heart Healthy), Diabetes Type 2 Diet Discharge Diet Recommended Diet: AHA Diet (Heart Healthy), Diabetes Type 2 Diet Procedures Procedures Performed: TTE Pending Studies Studies pending at discharge: no Laboratory Results Hemoglobin A1c Test 09/04/17 05:37 Range/Units Estimated Average Glucose 154 mg/dl Hemoglobin A1c 7.0 H 4.5-5.6 % Lipid Panel Test 09/04/17 05:37 Range/Units Triglycerides Level 112 0-150 mg/dl Cholesterol Level 149 0-200 mg/dl HDL Cholesterol 27 mg/dl Cholesterol/HDL Ratio 5.5 LDL Cholesterol, Calculated 100 mg/dl Medical Emergencies . Who to Call and When: Call 911 or go to the Emergency Room if: * If at any time you feel your situation is an emergency * You have tightness or pain in your chest that does not go away with rest or Nitroglycerin * You are very short of breath even with rest . Non-Emergent Contact Non-Emergency issues call your: Primary Care Provider . . "Provider Documentation" section prepared by Melania Colon. . VTE Core Measure Inpt VTE Proph given/why not?: Enoxaparin (Lovenox)SQ Additional Copies To Viet Holly D.OBrooks
[2017-09-07 16:36] VITALS: BP 107/57; PULSE 65; TEMP 36.7; O2SAT 93
--- NOTE | 2017-09-07 18:50 | NUR ---
A: Pt left at this time via wheelchair and volunteer. Pt reports he has all belongings and D/C instructions with him. IV saline lock removed. D/C instructions reviewed- pt reports he has no further questions.
[2017-09-07] MEDS ORDERED: ESCITALOPRAM OXALATE 20 MG TAB PO SCH (21:00)
== END 2017-09-07 18:51 | disposition home or self-care (01) | DRG 190 ==
LOC: C.EDB 22:25 → ENRESERV 09-04 01:01 → C.2E 09-04 01:40 → EDBEDREQ 09-04 01:42 → ENRESERV 09-06 14:13 → C.4E 09-06 14:41
PROVIDERS: ADMIT Hospitalist; ATTEND Hospitalist
DX: J44.1 Chronic obstructive pulmonary disease with (acute) exacerbation (principal); I50.33 Acute on chronic diastolic (congestive) heart failure; J44.0 Chronic obstructive pulmonary disease with (acute) lower respiratory infection; J20.9 Acute bronchitis, unspecified; R09.02 Hypoxemia; I11.0 Hypertensive heart disease with heart failure; I25.10 Atherosclerotic heart disease of native coronary artery without angina pectoris; I44.7 Left bundle-branch block, unspecified; E11.65 Type 2 diabetes mellitus with hyperglycemia; D72.829 Elevated white blood cell count, unspecified; T38.0X5A Adverse effect of glucocorticoids and synthetic analogues, initial encounter; E78.5 Hyperlipidemia, unspecified; F32.9 Major depressive disorder, single episode, unspecified; F41.9 Anxiety disorder, unspecified; F17.210 Nicotine dependence, cigarettes, uncomplicated; I25.2 Old myocardial infarction; Z95.1 Presence of aortocoronary bypass graft; Z95.5 Presence of coronary angioplasty implant and graft; Z79.02 Long term (current) use of antithrombotics/antiplatelets; Z79.4 Long term (current) use of insulin; Z79.82 Long term (current) use of aspirin; Z79.899 Other long term (current) drug therapy; Z82.49 Family history of ischemic heart disease and other diseases of the circulatory system; Z83.3 Family history of diabetes mellitus; Z82.3 Family history of stroke; Z80.0 Family history of malignant neoplasm of digestive organs; Z81.1 Family history of alcohol abuse and dependence

== ENCOUNTER 2019-07-08 18:22 | Inpatient (IN) ==
--- NOTE | 2019-07-08 19:01 | XRay Report ---
XR chest 1V portable CLINICAL HISTORY: Dyspnea COMPARISON STUDY: 09/03/2017 FINDINGS: The heart is enlarged. There are postsurgical changes of a midline sternotomy. There is rad iographic evidence of mild congestive failure/fluid overload. There is a suspected left pleural effus ion with associated left basilar atelectasis/consolidation.[ IMPRESSION: 1. Cardiomegaly and radiographic evidence of mild congestive failure/fluid overload 2. Suspected small left pleural effusion with associated left basilar atelectasis/consolidation Electronically signed by: Shaan Bolanos M.D. 07/08/2019 7:00 PM
[2019-07-08 19:18] LABS: Basophils # (auto) 0.02 K/uL (0-0.2); Basophils % (auto) 0.2 %; Eosinophils # (auto) 0.28 K/uL (0-0.5); Eosinophils % (auto) 3.3 %; Hematocrit (blood only) 45.2 % (42-52); Hemoglobin 15.1 g/dL (14.0-18.0); Immature Granulocytes # (auto) 0.02 K/uL (0.00-0.02); Immature Granulocytes % (auto) 0.2 %; Lymphocytes # (auto) 1.95 K/uL (1.2-3.4); Lymphocytes % (auto) 22.9 %; Mean Corpuscular Hemoglobin 30.9 pg (25-34); Mean Corpuscular Hgb Conc 33.4 g/dL (32-36); Mean Corpuscular Volume 92.4 fL (80-100); Monocytes # (auto) 0.76 K/uL (0.11-0.59); Monocytes % (auto) 8.9 %; Neutrophils # (auto) 5.49 K/uL (1.4-6.5); Neutrophils % (auto) 64.5 %; Platelet Count 316 K/uL (130-400); RDW Coefficient of Variation 13.5 % (11.5-14.5); RDW Standard Deviation 45.3 fL (36.4-46.3); Red Blood Count 4.89 M/uL (4.7-6.1); White Blood Count 8.52 K/uL (4.8-10.8)
[2019-07-08 19:35] LABS: Albumin Level 3.4 gm/dl (3.4-5.0); BUN Creatinine Ratio 15.9 (10-20); Calcium 8.8 mg/dl (8.5-10.1); Creatinine Clr Calc Pharmacy 100.4 ml/min; Est GFR (African American) 103.1; Est GFR (Non-African American) 88.9; Partial Thromboplastin Ratio 1.2; Partial Thromboplastin Time 32.6 Seconds (21.0-31.0); Potassium 3.6 mmol/L (3.5-5.1); Prothrombin Time 10.7 Seconds (9.0-12.0)
[2019-07-08 19:40] LABS: Albumin Globulin Ratio 0.9 (0.9-2); Bilirubin,Total 0.6 mg/dl (0.2-1); Globulin 3.9 gm/dl (2.5-4.0); Total Protein 7.3 gm/dl (6.4-8.2); Troponin I 0.023 ng/ml (0-0.045)
[2019-07-08] MEDS ORDERED: FUROSEMIDE 40 MG/4 ML VIAL IV STA (21:19)
[2019-07-08] MEDS ORDERED: NITROGLYCERIN 2% OINTMENT 30GM TUBE EXT STA (21:19)
[2019-07-08] MEDS ORDERED: POTASSIUM CHLORIDE 20 MEQ TABCR PO STA (21:31)
[2019-07-08 21:57] LABS: Magnesium 1.5 mg/dl (1.8-2.4); Thyroid Stimulating Hormone 6.09 uIu/ml (0.300-4.500)
[2019-07-08 22:02] LABS: Appearance Urine Clear (Clear); Bacteria Urine Automated Negative (Negative); Bilirubin Urine Negative (Negative); Blood Urine Trace (Negative); Cast Urine Automated 0 /lpf (0-5); Color Urine Yellow; Epithelial Cell Urine Auto 0-5 /lpf (0-5); Glucose Urine UA 1+ (Negative); Ketones Urine Negative (Negative); Leukocyte Esterase Urine Negative (Negative); Nitrite Urine Negative (Negative); Protein Urine 2+ (Negative); Urobilinogen Urine Negative (Negative); pH Urine 6.5 (4.5-7.5)
[2019-07-08 22:09] LABS: T4 Free Thyroxine 1.07 ng/dl (0.8-1.6)
[2019-07-08] MEDS ORDERED: METOPROLOL SUCC 50MG EXT REL TAB PO STA (22:22)
--- NOTE | 2019-07-08 22:23 | History & Physical Report ---
Date of Service July 08, 2019 Assessment & Plan (1) Acute CHF: hx chronic diastolic heart failure (EF 55 to 60%, TTE 2018) Possible precipitants : Dietary discretion Uncontrolled blood pressure secondary to erratic medication compliance, ro MARY ANN CAD status post CABG, stent chronic LBBB history PAF, patient NSR hyperlipidemia on statin Rx COPD, past tobacco abuse, lung status at baseline DM 2 insulin requiring, suboptimal control as of recent outpatient hemoglobin A1c of 9.12 June 2019 mood disorder, at baseline PCU Diuretic Rx Strict I/Os, daily weights, CHF education, fluid restriction for now Patient counseled about need to comply with low-salt diet and regular BP medication intake. Facilitate home beta-mckayla, may need titration. Cardiology consult RE decompensated heart failure outpatient polysomnography. Basal insulin, ISS BG goal 140-180, carb count coverage PT OT eval DVT prophylaxis with Lovenox subcu Full code History of Present Illness Chief Complaint: Shortness of breath, fluid retention Primary Care Provider: Viet Holly DO History obtained from patient, family, and records. Medical history significant for chronic diastolic heart failure (EF 55 to 60%, TTE 2018), CAD status post CABG, stent, chronic left bundle branch block, history PAF, hypertension, hyperlipidemia, COPD, past tobacco abuse, DM 2 insulin requiring, mood disorder. Recent confinement August 2018 for chest pain. 2 days history of increased fluid retention, leg swelling, about 11 pound weight gain as per patient. Diuretic Rx prescribed by PCP. Worsening symptoms followed by increasing shortness of breath without chest pain, usual dry cough symptoms the next 2 days. Patient denies headache. Does not check his pressure at home but blood pressure always good at doctor's office as per patient. Family worried about patient having MARY ANN. Admits to occasionally forgetting to take his blood pressure pills. Admits to dietary indiscretion, not being too conscious about salt intake. Intermittent NSAID intake for body aches. Patient drove himself to the emergency room tonight. Given Lasix at the ER. 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 Allergies Allergy/AdvReac Type Severity Reaction Status Date / Time VELMA Inhibitors Allergy Unknown unknown Verified 09/05/18 06:10 Home Medications Home Medications Medication Instructions Recorded Confirmed Type Novolog PenFill U-100 Insulin 1 sliding scale dose SUBCUT ACHS 09/05/18 07/08/19 History aspirin 81 mg PO DAILY 09/05/18 07/08/19 History atorvastatin 40 mg PO DAILY 09/05/18 07/08/19 History calcipotriene [Dovonex] 1 applic TOPICAL BID 09/05/18 07/08/19 History clopidogrel 75 mg PO DAILY 09/05/18 07/08/19 History escitalopram oxalate 20 mg PO DAILY 09/05/18 07/08/19 History isosorbide dinitrate 10 mg PO Q12 09/05/18 07/08/19 History loratadine [Claritin] 10 mg PO DAILY PRN 09/05/18 07/08/19 History nitroglycerin 1 spry SUBLINGUAL UD PRN 09/05/18 07/08/19 History prednisone 20 mg PO UD PRN 09/05/18 07/08/19 History albuterol sulfate 2.5 mg INHALATION QID 07/08/19 07/08/19 History albuterol sulfate [Ventolin HFA] 2 puff INHALATION Q4H PRN 07/08/19 07/08/19 History doxepin 3 mg PO HS 07/08/19 07/08/19 History fluticasone propionate 2 spray INTRANASAL DAILY 07/08/19 07/08/19 History furosemide 20 mg PO Q2D 07/08/19 07/08/19 History metoprolol succinate 25 mg PO DAILY 07/08/19 07/08/19 History mometasone-formoterol [Dulera] 2 puff INHALATION BID 07/08/19 07/08/19 History trazodone 50 mg PO HS 07/08/19 07/08/19 History Past Med/Surg History Medical History Depression (Chronic) Anxiety (Chronic) Obesity (BMI 30-39.9) (Chronic) CAD (coronary artery disease), [place] coronary artery (Chronic) "MD 1998 followed by PCI, MD 2005 followed by PCI, non-STEMI 2016 followed by CABG" COPD (chronic obstructive pulmonary disease) (Chronic) Left bundle branch block (LBBB) on electrocardiogram (Chronic) Family History Other Family history non-contributory Social History Preferred Language: [place] Communication Ability: Effective Social Work Job Titles Required: No Beliefs That Will Affect Care: None Current Living Situation: Alone Other Information That Helps Us Care for You: No Feels Safe at Home: Yes Safety Concerns: Feels Safe At This Time Smoking Status: Former smoker Tobacco Type: cigarettes ; Cigarettes Per Day: 20 ; Second Hand Exposure: No ; Hx Alcohol Use: No Hx Substance Use: No Review of Systems Review of Systems: As per HPI, all 10 systems reviewed, all other ROS negative Physical Exam Physical Exam: GENERAL: Obese, no overt respiratory distress SKIN: Normal color, warm HEENT: Alopecia, [place] palpebral conjunctivae, no ptosis, dry buccal mucosa NECK : Supple, short neck, no tenderness CHEST : Decreased breath sounds, scattered crackles, no tenderness HEART : RRR, no obvious murmurs ABDOMEN: distention, nontender EXTREMITIES : Bilateral LE swelling, no LE tenderness, no other conspicuous deformities noted NEUROLOGIC : Coherent, no facial asymmetry, no other gross focality Results & Data Vital Signs (Past 12 Hours) Vital Signs Temp Pulse Pulse Resp BP BP Pulse Ox 07/08/19 21:14 93 H 18 169/100 H 95 07/08/19 19:12 90 17 158/89 H 91 07/08/19 18:26 37 C 101 H 20 154/83 H 95 Laboratory Results Laboratory Results WBC 8.52 K/uL (4.8-10.8) 07/08/19 19:07 RBC 4.89 M/uL (4.7-6.1) 07/08/19 19:07 Hgb 15.1 g/dL (14.0-18.0) 07/08/19 19:07 Hct 45.2 % (42-52) 07/08/19 19:07 MCV 92.4 fL (80-100) 07/08/19 19:07 MCH 30.9 pg (25-34) 07/08/19 19:07 MCHC 33.4 g/dL (32-36) 07/08/19 19:07 RDW Std Deviation 45.3 fL (36.4-46.3) 07/08/19 19:07 RDW Coeff of Shellie 13.5 % (11.5-14.5) 07/08/19 19:07 Plt Count 316 K/uL (130-400) 07/08/19 19:07 MPV 10.0 fL (7.4-10.4) 07/08/19 19:07 Immature Gran % (Auto) 0.2 % 07/08/19 19:07 Neut % (Auto) 64.5 % 07/08/19 19:07 Lymph % (Auto) 22.9 % 07/08/19 19:07 [place] % (Auto) 8.9 % 07/08/19 19:07 Eos % (Auto) 3.3 % 07/08/19 19:07 Baso % (Auto) 0.2 % 07/08/19 19:07 Immature Gran # (Auto) 0.02 K/uL (0.00-0.02) 07/08/19 19:07 Neut # (Auto) 5.49 K/uL (1.4-6.5) 07/08/19 19:07 Lymph # (Auto) 1.95 K/uL (1.2-3.4) 07/08/19 19:07 [place] # (Auto) 0.76 K/uL (0.11-0.59) H 07/08/19 19:07 Eos # (Auto) 0.28 K/uL (0-0.5) 07/08/19 19:07 Baso # (Auto) 0.02 K/uL (0-0.2) 07/08/19 19:07 PT 10.7 Seconds (9.0-12.0) 07/08/19 19:07 INR 1.0 (0.9-1.1) 07/08/19 19:07 APTT 32.6 Seconds (21.0-31.0) H 07/08/19 19:07 PTT Ratio 1.2 07/08/19 19:07 Sodium 137 mmol/L (136-145) 07/08/19 19:07 Potassium 3.6 mmol/L (3.5-5.1) 07/08/19 19:07 Chloride 101 mmol/L (98-107) 07/08/19 19:07 Carbon Dioxide 28 mmol/L (21-32) 07/08/19 19:07 Anion Gap 8.0 (3-11) 07/08/19 19:07 BUN 12 mg/dl (7-18) 07/08/19 19:07 Creatinine 0.78 mg/dl (0.6-1.4) 07/08/19 19:07 Est Cr Clr Drug Dosing 100.4 ml/min 07/08/19 19:07 Est GFR ( Amer) 103.1 07/08/19 19:07 Est GFR (Non-Af Amer) 88.9 07/08/19 19:07 BUN/Creatinine Ratio 15.9 (10-20) 07/08/19 19:07 Glucose 213 mg/dl (70-99) H 07/08/19 19:07 Calcium 8.8 mg/dl (8.5-10.1) 07/08/19 19:07 Magnesium 1.5 mg/dl (1.8-2.4) L 07/08/19 19:07 Total Bilirubin 0.6 mg/dl (0.2-1) 07/08/19 19:07 AST 11 U/L (15-37) L 07/08/19 19:07 ALT 23 U/L (12-78) 07/08/19 19:07 Alkaline Phosphatase 159 U/L (45-117) H 07/08/19 19:07 Troponin I 0.023 ng/ml (0-0.045) 07/08/19 19:07 NT-Pro-B Natriuret Pep 5107 pg/ml (0-900) H 07/08/19 19:07 Total Protein 7.3 gm/dl (6.4-8.2) 07/08/19 19:07 Albumin 3.4 gm/dl (3.4-5.0) 07/08/19 19:07 Globulin 3.9 gm/dl (2.5-4.0) 07/08/19 19:07 Albumin/Globulin Ratio 0.9 (0.9-2) 07/08/19 19:07 TSH 6.090 uIu/ml (0.300-4.500) H 07/08/19 19:07 Free T4 1.07 ng/dl (0.8-1.6) 07/08/19 19:07 Urine Color Yellow 07/08/19 21:50 Urine Appearance Clear (Clear) 07/08/19 21:50 Urine pH 6.5 (4.5-7.5) 07/08/19 21:50 Ur Specific [place] 1.020 (1.000-1.030) 07/08/19 21:50 Urine Protein 2+ (Negative) H 07/08/19 21:50 Urine Glucose (UA) 1+ (Negative) H 07/08/19 21:50 Urine Ketones Negative (Negative) 07/08/19 21:50 Urine Blood Trace (Negative) H 07/08/19 21:50 Urine Nitrite Negative (Negative) 07/08/19 21:50 Urine Bilirubin Negative (Negative) 07/08/19 21:50 Urine Urobilinogen Negative (Negative) 07/08/19 21:50 Ur Leukocyte Esterase Negative (Negative) 07/08/19 21:50 Urine WBC (Auto) 1-5 /hpf (0-5) 07/08/19 21:50 Urine RBC (Auto) 5-10 /hpf (0-4) H 07/08/19 21:50 U Hyaline Cast (Auto) 0 /lpf (0-5) 07/08/19 21:50 U Epithel Cells (Auto) 0-5 /lpf (0-5) 07/08/19 21:50 Urine Bacteria (Auto) Negative (Negative) 07/08/19 21:50 Diagnostic Findings Chest x-ray : 1. Cardiomegaly and radiographic evidence of mild congestive failure/fluid overload 2. Suspected small left pleural effusion with associated left basilar at electasis/consolidation EKG as per my interpretation : Rate 95, NSR, LAD, LAFB, LBBB, inferior infarct (1) Acute CHF Heart failure type: unspecified Qualified Code(s): I50.9 - Heart failure, unspecified
[2019-07-09] MEDS ORDERED: GLUCOSE 40% GEL 15 GM TUBE PO PRN (00:17)
[2019-07-09] MEDS ORDERED: PROMETHAZINE HCL 12.5 MG in SODIUM CHLORIDE 0.9% 50 ML IV PRN (00:17)
[2019-07-09] MEDS ORDERED: LORATADINE 10 MG TAB PO PRN (00:17)
[2019-07-09] MEDS ORDERED: NITROGLYCERIN SL 0.4 MG/TAB TAB SL PRN (00:17)
[2019-07-09] MEDS ORDERED: CARBOHYDRATES FOR HYPOGLYCEMIA PO PRN (00:17)
[2019-07-09] MEDS ORDERED: GLUCOSE 10 TABS/TUBE PO PRN (00:17)
[2019-07-09] MEDS ORDERED: DEXTROSE 50% 50 ML SYRINGE IV PRN (00:17)
[2019-07-09] MEDS ORDERED: ACETAMINOPHEN 325 MG TAB PO PRN (00:17)
[2019-07-09] MEDS ORDERED: XOPENEX/ATROVENT 1.25mg/0.5MG NEB COMBO NEB STA (00:17)
[2019-07-09] MEDS ORDERED: TRAMADOL HCL 50 MG TABLET PO PRN (00:17)
[2019-07-09] MEDS ORDERED: GLUCAGON FOR INJ 1 MG VIAL SQ PRN (00:17)
--- NOTE | 2019-07-09 00:42 | Emergency Department Note ---
Entered by Anna Nobles acting as a scribe for ED Provider Note CHIEF COMPLAINT: Swelling to extremity HISTORY OF PRESENT ILLNESS: The patient is a 74 year old male with past medical history of chest pain, depression, CAD, COPD, LBBB, dyspnea, hypoxia, diabetes, HTN, dyslipidemia, cataract, 4 stents. CABGX3 who presents to the Emergency Room with complaints of constant leg swelling that started 5 days ago. The patient reports he is unable to breathe or sleep when he lies flat in bed. He notes he has shortness of breath that is worsened with exertion. The patient denies he does not wear oxygen at home and is not a smoker. Pt denies LOC, headache, fevers, chills, diaphoresis, visual changes, neck pain, chest pain, breathing difficulties, nausea, vomiting, abdominal pain, back pain, melena, hematochezia, urinary symptoms, numbness, weakness, lymphadenopathy, rash, or other complaints. REVIEW OF SYSTEMS: See HPI for pertinent positives and negatives. A total of ten systems were reviewed and were otherwise negative. PMHx/PSHx: Chest pain Depression CAD COPD LBBB Dyspnea, Hypoxia Diabetes HTN Dyslipidemia Cataract 4 stents CABGX3 SOCIAL HISTORY: Patient lives at home. PHYSICAL EXAM: GENERAL: Awake, alert, mildly dyspneic -appearing, in no distress HENT: Normocephalic, atraumatic. Oropharynx unremarkable. EYES: PERRL. Normal conjunctiva. Sclera non-icteric. NECK: Inspection normal. Non-tender. Supple. No nuchal rigidity. FROM. No masses. RESPIRATORY: No wheezes. Scattered bibasilar rales. Normal respiratory effort. CARDIAC: Normal rate. Normal rhythm. No murmurs. No rubs. Extremities warm and well perfused. Pulses equal. No JVD. GI: Soft, non-distended. No tenderness to palpation. No rebound or guarding. No masses. RECTAL: Deferred. MUSCULOSKELETAL: Atraumatic. Chest examination reveals no tenderness. The back is symmetrical on inspection without obvious abnormality. There is no CVA tenderness to palpation. No joint edema. LOWER EXTREMITIES: Calves are equal size bilaterally and non-tender. 2+ edema. No discoloration. NEURO: Normal sensorium. No sensory or motor deficits noted. SKIN: No rash or jaundice noted. EMERGENCY DEPARTMENT COURSE: 183: Past medical records reviewed. The patient was evaluated in room C10, and a complete history and physical examination were performed. The patient states his youngest daughter was murdered 2 years ago and his of broken heart syndrome. He notes while his was in the hospital, he was in [place] getting CABG X3 and prior to that he had 4 stents. 2100: I checked on the patient. 2103: I put a call out for cardiology. 2113: I discussed the patients case with Dr. Crespo, Cardiology. He said to do lasiks, nitro paced and to admit the patient. 2124: I discussed the patients with Dr. Monteiro, [facility] Hospitalist. He will evaluate the patient for further management. MEDICAL DECISION MAKING: Prior records/ancillary studies reviewed. Triage Nursing notes reviewed and agree them. Additional history obtained from the family. The patient's history was concerning for shortness of breath. Differential diagnosis: Etiologies such as CHF, cardiac ischemia, pneumonia, COPD, reactive airway disease, pulmonary embolism, pneumothorax, musculoskeletal, infections, gastrointestinal, as well as others were entertained. Physical examination: Concerning for CHF. ER treatment provided: Monitoring IV Lasix Nitropaste Diagnostic interpretation by me: The electrocardiogram was negative for acute ischemic change. The labs revealed unremarkable CBC. Chemistry panel was unremarkable. BNP is elevated consistent with CHF. Troponin negative. Imaging studies: Chest x-ray consistent with CHF. Consultation: Consult patient was placed with [facility] cardiology. Case was discussed. IV Lasix and Nitropaste recommended admission to the hospital recommended for further management and diagnostic testing.. A consultation was placed with the hospitalist. The case was discussed and diagnostics were reviewed. The patient was evaluated in the ER for further treatment. IMPRESSION: Acute CHF PLAN: Admit The scribe's documentation has been prepared under my direction and personally reviewed by me in its entirety. I confirm that the note above accurately reflects all work, treatment, procedures, and medical decision making performed by me. 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 Aircraft Required: No Beliefs That Will Affect Care: None Current Living Situation: Alone Other Information That Helps Us Care for You: No Feels Safe at Home: Yes Safety Concerns: Feels Safe At This Time Smoking Status: Former smoker Tobacco Type: cigarettes ; Cigarettes Per Day: 20 ; Second Hand Exposure: No ; Hx Alcohol Use: No Hx Substance Use: No Results & Data Vital Signs Vital Signs - 24 hr 07/08/19 18:26 07/08/19 19:12 07/08/19 21:14 Temperature 37 C Temperature Source Oral Sepsis Recent Fever Within 48 Hours No Sepsis New/Unexplained Change in Mental Status No Sepsis Action Taken by Nursing No Action Required Pulse Rate 101 H Pulse Rate [Apical] 90 93 H Pulse Rhythm [Apical] Regular Respiratory Rate 20 17 18 Respiratory Effort / Characteristics Non-Labored Respiratory Depth Normal Normal Blood Pressure 154/83 H Blood Pressure [Right Arm] 158/89 H 169/100 H Blood Pressure Mean 106 Blood Pressure Mean [Right Arm] 112 123 Blood Pressure Position [Right Arm] Sitting Pulse Oximetry 95 91 95 Oxygen Delivery Method Room Air Room Air Room Air Home Medications Current Medication List: was personally reviewed by me Laboratory Data Attestation: I reviewed the patient's lab results. Result diagrams: 07/08/19 19:07 07/08/19 19:07 Lab Results 07/08/19 07/08/19 07/08/19 Range/Units 19:07 19:07 19:07 WBC 8.52 (4.8-10.8) K/uL RBC 4.89 (4.7-6.1) M/uL Hgb 15.1 (14.0-18.0) g/dL Hct 45.2 (42-52) % MCV 92.4 (80-100) fL MCH 30.9 (25-34) pg MCHC 33.4 (32-36) g/dL RDW Std Deviation 45.3 (36.4-46.3) fL RDW Coeff of Shellie 13.5 (11.5-14.5) % Plt Count 316 (130-400) K/uL MPV 10.0 (7.4-10.4) fL Immature Gran % (Auto) 0.2 % Neut % (Auto) 64.5 % Lymph % (Auto) 22.9 % [place] % (Auto) 8.9 % Eos % (Auto) 3.3 % Baso % (Auto) 0.2 % Immature Gran # (Auto) 0.02 (0.00-0.02) K/uL Neut # (Auto) 5.49 (1.4-6.5) K/uL Lymph # (Auto) 1.95 (1.2-3.4) K/uL [place] # (Auto) 0.76 H (0.11-0.59) K/uL Eos # (Auto) 0.28 (0-0.5) K/uL Baso # (Auto) 0.02 (0-0.2) K/uL PT 10.7 (9.0-12.0) Seconds INR 1.0 (0.9-1.1) APTT 32.6 H (21.0-31.0) Seconds PTT Ratio 1.2 Sodium 137 (136-145) mmol/L Potassium 3.6 (3.5-5.1) mmol/L Chloride 101 (98-107) mmol/L Carbon Dioxide 28 (21-32) mmol/L Anion Gap 8.0 (3-11) BUN 12 (7-18) mg/dl Creatinine 0.78 (0.6-1.4) mg/dl Est Cr Clr Drug Dosing 100.4 ml/min Est GFR ( Amer) 103.1 Est GFR (Non-Af Amer) 88.9 BUN/Creatinine Ratio 15.9 (10-20) Glucose 213 H (70-99) mg/dl Calcium 8.8 (8.5-10.1) mg/dl Magnesium (1.8-2.4) mg/dl Total Bilirubin 0.6 (0.2-1) mg/dl AST 11 L (15-37) U/L ALT 23 (12-78) U/L Alkaline Phosphatase 159 H (45-117) U/L Troponin I 0.023 (0-0.045) ng/ml NT-Pro-B Natriuret Pep 5107 H (0-900) pg/ml Total Protein 7.3 (6.4-8.2) gm/dl Albumin 3.4 (3.4-5.0) gm/dl Globulin 3.9 (2.5-4.0) gm/dl Albumin/Globulin Ratio 0.9 (0.9-2) TSH (0.300-4.500) uIu/ml Free T4 (0.8-1.6) ng/dl Urine Color Urine Appearance (Clear) Urine pH (4.5-7.5) Ur Specific [place] (1.000-1.030) Urine Protein (Negative) Urine Glucose (UA) (Negative) Urine Ketones (Negative) Urine Blood (Negative) Urine Nitrite (Negative) Urine Bilirubin (Negative) Urine Urobilinogen (Negative) Ur Leukocyte Esterase (Negative) Urine WBC (Auto) (0-5) /hpf Urine RBC (Auto) (0-4) /hpf U Hyaline Cast (Auto) (0-5) /lpf U Epithel Cells (Auto) (0-5) /lpf Urine Bacteria (Auto) (Negative) 07/08/19 07/08/19 Range/Units 19:07 21:50 WBC (4.8-10.8) K/uL RBC (4.7-6.1) M/uL Hgb (14.0-18.0) g/dL Hct (42-52) % MCV (80-100) fL MCH (25-34) pg MCHC (32-36) g/dL RDW Std Deviation (36.4-46.3) fL RDW Coeff of Shellie (11.5-14.5) % Plt Count (130-400) K/uL MPV (7.4-10.4) fL Immature Gran % (Auto) % Neut % (Auto) % Lymph % (Auto) % [place] % (Auto) % Eos % (Auto) % Baso % (Auto) % Immature Gran # (Auto) (0.00-0.02) K/uL Neut # (Auto) (1.4-6.5) K/uL Lymph # (Auto) (1.2-3.4) K/uL [place] # (Auto) (0.11-0.59) K/uL Eos # (Auto) (0-0.5) K/uL Baso # (Auto) (0-0.2) K/uL PT (9.0-12.0) Seconds INR (0.9-1.1) APTT (21.0-31.0) Seconds PTT Ratio Sodium (136-145) mmol/L Potassium (3.5-5.1) mmol/L Chloride (98-107) mmol/L Carbon Dioxide (21-32) mmol/L Anion Gap (3-11) BUN (7-18) mg/dl Creatinine (0.6-1.4) mg/dl Est Cr Clr Drug Dosing ml/min Est GFR ( Amer) Est GFR (Non-Af Amer) BUN/Creatinine Ratio (10-20) Glucose (70-99) mg/dl Calcium (8.5-10.1) mg/dl Magnesium 1.5 L (1.8-2.4) mg/dl Total Bilirubin (0.2-1) mg/dl AST (15-37) U/L ALT (12-78) U/L Alkaline Phosphatase (45-117) U/L Troponin I (0-0.045) ng/ml NT-Pro-B Natriuret Pep (0-900) pg/ml Total Protein (6.4-8.2) gm/dl Albumin (3.4-5.0) gm/dl Globulin (2.5-4.0) gm/dl Albumin/Globulin Ratio (0.9-2) TSH 6.090 H (0.300-4.500) uIu/ml Free T4 1.07 (0.8-1.6) ng/dl Urine Color Yellow Urine Appearance Clear (Clear) Urine pH 6.5 (4.5-7.5) Ur Specific [place] 1.020 (1.000-1.030) Urine Protein 2+ H (Negative) Urine Glucose (UA) 1+ H (Negative) Urine Ketones Negative (Negative) Urine Blood Trace H (Negative) Urine Nitrite Negative (Negative) Urine Bilirubin Negative (Negative) Urine Urobilinogen Negative (Negative) Ur Leukocyte Esterase Negative (Negative) Urine WBC (Auto) 1-5 (0-5) /hpf Urine RBC (Auto) 5-10 H (0-4) /hpf U Hyaline Cast (Auto) 0 (0-5) /lpf U Epithel Cells (Auto) 0-5 (0-5) /lpf Urine Bacteria (Auto) Negative (Negative) Administered Medications Discontinued Medications Furosemide (Lasix) 40 mg IV NOW STA Stop: 07/08/19 21:20 Last Admin: 07/08/19 21:36 Dose: 40 mg Documented by: [id number] Metoprolol Succinate (Toprol Xl) 25 mg PO NOW STA Stop: 07/08/19 22:23 Last Admin: 07/08/19 22:42 Dose: 25 mg Documented by: [id number] Nitroglycerin (Nitro-Bid 2%) 0.5 inch EXT NOW STA Stop: 07/08/19 21:20 Last Admin: 07/08/19 21:35 Dose: 1 inch Documented by: [id number] Potassium Chloride (Klor-Con M20) 40 meq PO NOW STA Stop: 07/08/19 21:32 Last Admin: 07/08/19 21:36 Dose: 40 meq Documented by: [id number] Imaging Data Radiologist's Impression: Radiology results as stated below per my review and the radiologist's interpretation: XR chest 1V portable CLINICAL HISTORY: Dyspnea COMPARISON STUDY: 09/03/2017 FINDINGS: The heart is enlarged. There are postsurgical changes of a midline sternotomy. There is radiographic evidence of mild congestive failure/fluid overload. There is a suspected left pleural effusion with associated left basilar atelectasis/consolidation.[ IMPRESSION: 1. Cardiomegaly and radiographic evidence of mild congestive failure/fluid overload 2. Suspected small left pleural effusion with associated left basilar atelectasis/consolidation Electronically signed by: Shaan Bolanos M.D. 07/08/2019 7:00 PM ECG Data Attestation: I personally reviewed and interpreted this ECG as follows: Indication: SOB/dyspnea Rate (beats per minute): 97 Rhythm: sinus rhythm Findings: + other (Prolonged QTC), + LBBB and + PVC; no ST elevation Blood Pressure Blood Pressure Findings: Elevated blood pressure Blood Pressure Disposition: further management by hospitalist Discharge Plan Visit Data *Final* Discharge Date/Time: 07/08/19 23:06 Chief Complaint: Swelling/Edema to Extremity Stated Complaint: SWELLING, PAIN WHEN COUGHING ED Provider: Collin Haque Discharge Problem: Acute CHF Patient Disposition: Admitted As Inpatient Discharge Instructions Interventions: ED Discharge Assessment Last Done: 07/08/19 23:06 Discharge Problem: Acute CHF Qualifiers: Heart failure type: unspecified Qualified Code(s): I50.9 - Heart failure, unspecified The scribe's documentation has been prepared under my direction and personally reviewed by me in its entirety. I confirm that the note above accurately reflects all work, treatment, procedures, and medical decision making performed by me.
[2019-07-09] MEDS: LEVALBUTEROL 1.25MG/0.5ML NEB INH SCH ×4 (00:51→19:20)
[2019-07-09] MEDS: IPRATROPIUM BROMIDE NEB SOLN 0.02% 2.5 ML VIAL INH SCH ×4 (00:51→19:20)
[2019-07-09] MEDS: MAGNESIUM SULFATE / D5W 1 GM/100 ML BAG IV SCH ×2 (00:58→02:11)
[2019-07-09] MEDS: INSULIN ASPART 100 UNITS/ML 3 ML PEN SC SCH ×5 (01:12→20:15)
[2019-07-09] MEDS: INSULIN GLARGINE SOLOSTAR 100 UNITS/ML 3 ML PEN SQ SCH ×3 (01:13→20:15)
[2019-07-09 07:06] LABS: Basophils # (auto) 0.02 K/uL (0-0.2); Basophils % (auto) 0.2 %; Eosinophils # (auto) 0.26 K/uL (0-0.5); Hematocrit (blood only) 45.6 % (42-52); Hemoglobin 15.2 g/dL (14.0-18.0); Immature Granulocytes # (auto) 0.01 K/uL (0.00-0.02); Immature Granulocytes % (auto) 0.1 %; Lymphocytes # (auto) 1.77 K/uL (1.2-3.4); Lymphocytes % (auto) 20.7 %; Mean Corpuscular Hemoglobin 30.9 pg (25-34); Mean Corpuscular Hgb Conc 33.3 g/dL (32-36); Mean Corpuscular Volume 92.7 fL (80-100); Monocytes # (auto) 0.72 K/uL (0.11-0.59); Monocytes % (auto) 8.4 %; Neutrophils # (auto) 5.76 K/uL (1.4-6.5); Neutrophils % (auto) 67.6 %; Platelet Count 324 K/uL (130-400); RDW Coefficient of Variation 13.4 % (11.5-14.5); RDW Standard Deviation 45.3 fL (36.4-46.3); Red Blood Count 4.92 M/uL (4.7-6.1); White Blood Count 8.54 K/uL (4.8-10.8)
[2019-07-09 07:38] LABS: BUN Creatinine Ratio 16.5 (10-20); Calcium 8.8 mg/dl (8.5-10.1); Creatinine Clr Calc Pharmacy 90.9 ml/min; Est GFR (African American) 99.5; Est GFR (Non-African American) 85.8; Magnesium 1.9 mg/dl (1.8-2.4); Potassium 3.7 mmol/L (3.5-5.1)
[2019-07-09] MEDS: ENOXAPARIN INJ 40 MG/0.4 ML SYR SQ SCH ×2 (08:01→08:10)
[2019-07-09] MEDS: METOPROLOL SUCC 25MG EXT REL TAB PO SCH (08:02)
[2019-07-09] MEDS: POTASSIUM CHLORIDE 10 MEQ TABCR PO SCH ×2 (08:02→20:14)
[2019-07-09] MEDS: ISOSORBIDE DINITRATE 10 MG TAB PO SCH ×2 (08:02→12:09)
[2019-07-09] MEDS: CLOPIDOGREL BISULFATE 75 MG TAB PO SCH (08:02)
[2019-07-09] MEDS: ESCITALOPRAM OXALATE 20 MG TAB PO SCH (08:02)
[2019-07-09] MEDS: ATORVASTATIN 20 MG TAB PO SCH (08:02)
[2019-07-09] MEDS: ASPIRIN 81 MG ECTAB PO SCH (08:03)
[2019-07-09] MEDS ORDERED: FUROSEMIDE 40 MG in SYRINGE 0 ML IV SCH (09:00)
--- NOTE | 2019-07-09 09:08 | Cardiology Consultation ---
Date of Consultation July 09, 2019 Assessment & Plan (1) Acute combined systolic and diastolic heart failure: We will administer an additional dose of IV furosemide 40 mg at 2 PM today, will await results of his renal function panel and clinical response prior to dosing his diuretics for tomorrow, 07/10/2019. I have added spironolactone. Potassium replacement has already been ordered. An echocardiogram will be performed. He is on metoprolol succinate, long-acting nitrates for afterload reduction. He is not on VELMA inhibitor, and VELMA inhibitors are listed as a "allergy "we will need to explore the specifics of this to see if he may be a candidate for an angiotensin receptor mckayla or perhaps Entresto. (2) Status post coronary artery bypass grafting: Patient has a known chronic occlusion of the right coronary artery with scar in this territory on past testing and therefore it was not bypassed, he received bypass grafts to the LAD and circumflex territory. Continue chronic dual antiplatelet therapy. Metoprolol and statin therapy. (3) Left bundle branch block (LBBB) on electrocardiogram: EKG reveals sinus rhythm at 93 bpm on presentation with left bundle branch block, QRS duration 154 ms, the left bundle branch block is a chronic finding for him. His initial troponin was within normal limits. Will repeat troponin. Update echocardiogram to reassess his LVEF. History of Present Illness Attending Physician: Munir Ziegelr MD History of Present Illness Collin Al is a 74 year old male seen in cardiology consultation per the request of Dr. Cano for evaluation congestive heart failure.The patient's primary care roll or tape edge machine operator is Dr Bermeo. The patient most recently been seen in outpatient cardiology follow-up on 03/27/2019, and the progress note documents that the patient's spouse had recently prior to that visit. Metoprolol tartrate was discontinued and metoprolol succinate 25 mg daily was added. Furosemide 20 mg 1 to 2 days/week was recommended for peripheral edema. The patient's statin therapy with atorvastatin was placed on hold due to nonspecific symptoms, but recently resumed by primary care earlier this month. The patient notes that he has been through a lot over the last few months. He describes that his daughter was murdered, and that his spouse subsequently of "broken heart syndrome". At the time of his follow-up visit with Dr. Bermeo in March, he had been off of his cardiac medications, which were resumed. He took low-dose furosemide 20 mg on an as-needed basis for mild foot edema, but his symptoms progressed, and over the last month he states that he had aggressive difficulty sleeping due to shortness of breath with lying flat consistent with orthopnea. He also described progressive lower leg swelling. He presented to the emergency department, and interstitial edema and a small le ft pleural effusion was noted on chest x-ray. He received a dose of furosemide 40 mg last night just after 2100 hrs., and again this morning. At present, he had been resting comfortably, and he states he did feel improved after the 2 doses of furosemide. Cardiology Problem List: 1.Atherosclerotic coronary disease status post prior coronary stenting of the LAD in 1998, right coronary artery in 2005. 2.Crescendo angina in a setting of paroxysmal atrial fibrillation, acute emotional stressors, June 2017, culminating in cardiac catheterization with left main coronary disease and subsequent coronary bypass grafting, receiving YAN graft to LAD, saphenous vein graft to the ramus, saphenous vein graft to the circumflex on 06/19/2017. 3.Hypertension. 4.Left bundle-branch block. 5.Mild left ventricular dysfunctionEF 45-50%, pre CABG 06/18/17 6.Chronic obstructive lung disease, last exacerbation, August 2017 7. Nuclear stress test performed at [facility] August, revealing findings of inferior posterior infarction/scar with very mild lucy- infarct ischemia, LVEF 50% Social History: Retired [employer]. Daughter and spouse in early 2018. Has other family that checks up on him, lives alone. Allergies Allergy/AdvReac Type Severity Reaction Status Date / Time VELMA Inhibitors Allergy Unknown unknown Verified 09/05/18 06:10 Home Medications Home Medications Medication Instructions Recorded Confirmed Type Novolog PenFill U-100 Insulin 1 sliding scale dose SUBCUT ACHS 09/05/18 07/08/19 History aspirin 81 mg PO DAILY 09/05/18 07/08/19 History atorvastatin 40 mg PO DAILY 09/05/18 07/08/19 History calcipotriene [Dovonex] 1 applic TOPICAL BID 09/05/18 07/08/19 History clopidogrel 75 mg PO DAILY 09/05/18 07/08/19 History escitalopram oxalate 20 mg PO DAILY 09/05/18 07/08/19 History isosorbide dinitrate 10 mg PO Q12 09/05/18 07/08/19 History loratadine [Claritin] 10 mg PO DAILY PRN 09/05/18 07/08/19 History nitroglycerin 1 spry SUBLINGUAL UD PRN 09/05/18 07/08/19 History prednisone 20 mg PO UD PRN 09/05/18 07/08/19 History albuterol sulfate 2.5 mg INHALATION QID 07/08/19 07/08/19 History albuterol sulfate [Ventolin HFA] 2 puff INHALATION Q4H PRN 07/08/19 07/08/19 History doxepin 3 mg PO HS 07/08/19 07/08/19 History fluticasone propionate 2 spray INTRANASAL DAILY 07/08/19 07/08/19 History furosemide 20 mg PO Q2D 07/08/19 07/08/19 History metoprolol succinate 25 mg PO DAILY 07/08/19 07/08/19 History mometasone-formoterol [Dulera] 2 puff INHALATION BID 07/08/19 07/08/19 History trazodone 50 mg PO HS 07/08/19 07/08/19 History Patient History Medical History Depression (Chronic) Anxiety (Chronic) Obesity (BMI 30-39.9) (Chronic) CAD (coronary artery disease), samish coronary artery (Chronic) "ID 1998 followed by PCI, ID 2005 followed by PCI, non-STEMI 2016 followed by CABG" COPD (chronic obstructive pulmonary disease) (Chronic) Left bundle branch block (LBBB) on electrocardiogram (Chronic) Family History Other Family history non-contributory Social History Preferred Language: Faroese Communication Ability: Effective Player Manager Required: No Beliefs That Will Affect Care: None Current Living Situation: Alone Other Information That Helps Us Care for You: No Feels Safe at Home: Yes Safety Concerns: Feels Safe At This Time Smoking Status: Former smoker Tobacco Type: cigarettes ; Cigarettes Per Day: 20 ; Second Hand Exposure: No ; Hx Alcohol Use: No Hx Substance Use: No Review of Systems Review of Systems: All systems reviewed & are unremarkable except as noted in HPI & below Physical Exam Physical Exam: Temp Pulse Resp BP Pulse Ox 37 C 73 16 148/67 H 93 07/09/19 07:32 07/09/19 07:32 07/09/19 07:32 07/09/19 07:32 07/09/19 07:32 Constitutional: + ill appearing (No acute distress) and + morbidly obese Respiratory: no respiratory distress and does not use accessory muscles Auscultation: + rales (Mild rales bilaterally at the bases); no rhonchi and no wheezes Cardiovascular: RRR, no murmur, no edema Vessels: + JVD Extremities: + edema (1-2+ bilateral lower leg, ankle, pedal edema, to the mid tibia) Results & Data Vital Signs (Past 12 Hours) Vital Signs Temp Pulse Pulse Resp BP Pulse Ox 07/09/19 07:32 37 C 73 16 148/67 H 93 07/09/19 07:17 68 16 95 07/09/19 02:49 36.7 C 79 20 138/67 92 07/09/19 00:55 84 16 94 07/08/19 23:20 36.8 C 91 H 18 150/81 H 94 07/08/19 22:42 91 H 16 151/72 H 94 07/08/19 21:14 93 H 18 169/100 H 95 Laboratory Results Cardiac Enzymes 07/08/19 Range/Units 19:07 AST 11 L (15-37) U/L Troponin I 0.023 (0-0.045) ng/ml Coagulation 07/08/19 Range/Units 19:07 PT 10.7 (9.0-12.0) Seconds APTT 32.6 H (21.0-31.0) Seconds CBC 07/08/19 07/09/19 Range/Units 19:07 06:51 WBC 8.52 8.54 (4.8-10.8) K/uL RBC 4.89 4.92 (4.7-6.1) M/uL Hgb 15.1 15.2 (14.0-18.0) g/dL Hct 45.2 45.6 (42-52) % Plt Count 316 324 (130-400) K/uL Neut # (Auto) 5.49 5.76 (1.4-6.5) K/uL Lymph # (Auto) 1.95 1.77 (1.2-3.4) K/uL Baxter # (Auto) 0.76 H 0.72 H (0.11-0.59) K/uL Eos # (Auto) 0.28 0.26 (0-0.5) K/uL Baso # (Auto) 0.02 0.02 (0-0.2) K/uL Comprehensive Metabolic Panel 07/08/19 07/09/19 Range/Units 19:07 06:51 Sodium 137 139 (136-145) mmol/L Potassium 3.6 3.7 (3.5-5.1) mmol/L Chloride 101 100 (98-107) mmol/L Carbon Dioxide 28 31 (21-32) mmol/L BUN 12 14 (7-18) mg/dl Creatinine 0.78 0.85 (0.6-1.4) mg/dl Glucose 213 H 169 H (70-99) mg/dl Calcium 8.8 8.8 (8.5-10.1) mg/dl AST 11 L (15-37) U/L ALT 23 (12-78) U/L Alkaline Phosphatase 159 H (45-117) U/L Total Protein 7.3 (6.4-8.2) gm/dl Albumin 3.4 (3.4-5.0) gm/dl Intake and Output 07/08/19 07/09/19 07/09/19 22:59 06:59 14:59 Intake Total 250 / 250 Output Total 375 / 1300 925 / 1300 Balance -375 / -1050 -675 / -1050 Intake: IV 200 / 200 MAGNESIUM SULFATE / D5W 1 gm In 200 / 200 100 ml @ 100 mls/hr IV Q1H [facility] Rx#:[id number] Oral 50 / 50 Output: Urine 375 / 950 575 / 950 Other 350 / 350 Other: Weight 110.9 kg 108.1 kg
[2019-07-09] MEDS: SPIRONOLACTONE 25 MG TAB PO SCH (12:09)
--- NOTE | 2019-07-09 12:58 | Hospitalist Progress Note ---
Date of Service July 09, 2019 Assessment & Plan (1) Acute CHF: History of chronic diastolic heart failure (EF 55 to 60%, TTE 2018) Likely secondary to dietary indiscretion, possible poor adherence to medication regimen --Bias Machine Operator Helper consulted, Dr. Arteaga --Received Lasix IV overnight negative 1050ml so far Edema improving gradually --Patient to receive a total of 2 doses of Lasix 20 mg IV today Spironolactone 20 mg p.o. daily added --Monitor creatinine --Continue ISDN, metoprolol Possible initiation of Entresto or VELMA inhibitor per cardiology service --Will need counseling on better adherence to diet and medication regimen Rule out UTI --Noted to have foul-smelling urine today --Initial urinalysis not indicative of UTI --Repeat urinalysis, urine culture ordered CAD status post CABG, stent chronic LBBB --No chest pain --Continue aspirin and Plavix, metoprolol and Lipitor history PAF, patient NSR --Heart rate controlled, continue metoprolol COPD --Not in exacerbation DM 2 insulin requiring --Check A1c --Continue insulin Lantus and sliding scale mood disorder, at baseline -- On escitalopram, trazodone doxepin --Patient states his mood is fine at this time DVT prophylaxis with Lovenox subcu Full code Disposition Lives at home independently Physical therapy evaluation ordered Anticipate discharge to home medically stable, patient will benefit from home health services PCP follow-up with Dr. Way Cardiology follow-up with Dr. Arteaga Subjective Follow-up for diastolic CHF exacerbation Seen sitting up in bed, comfortable, not in distress Patient's daughter present at bedside, visiting Patient reports he feels improved today compared to yesterday Breathing is now improving, still has minimal exertional dyspnea Denies cough, fevers, sputum Denies chest pain, palpitations, nausea or vomiting, abdominal pain Denies changes in urination or bowel movement No other symptoms Review of Systems Review of Systems: All systems reviewed & are unremarkable except as noted in HPI & below Physical Exam Physical Exam: General- oriented x 3, not in distress, speaks in sentences with no effort or accessory muscle use Head- atraumatic Eyes- PERRL, EOMI, anicteric ENT- oropharynx clear Neck- supple, no JVD, no adenopathy, no thyromegaly; carotids +2/2, no bruits appreciated Lungs-mild rales at the bases bilaterally, no wheezing Heart- normal rate, regular rhythm; no murmur, no gallop, no rub appreciated Abdomen- normal bowel sounds, nondistended, soft, nontender, no masses or hepatosplenomegaly Extremities-positive grade 1 bilateral lower extremity edema, no calf tenderness; peripheral pulses intact Neuro- alert, oriented x 3; CN 2-12 grossly intact; motor 5/5 bilaterally;sensation 100% on all extremities; no other gross focal neurologic deficits Skin- warm & dry Results & Data Vital Signs (Past 12 Hours) Vital Signs Temp Pulse Resp BP Pulse Ox 07/09/19 11:33 36.5 C 61 18 123/69 92 07/09/19 07:32 37 C 73 16 148/67 H 93 07/09/19 07:17 68 16 95 07/09/19 02:49 36.7 C 79 20 138/67 92 Laboratory Results Laboratory Results - last 24 hr 07/08/19 07/08/19 07/08/19 19:07 19:07 19:07 WBC 8.52 RBC 4.89 Hgb 15.1 Hct 45.2 MCV 92.4 MCH 30.9 MCHC 33.4 RDW Std Deviation 45.3 RDW Coeff of Shellie 13.5 Plt Count 316 MPV 10.0 Immature Gran % (Auto) 0.2 Neut % (Auto) 64.5 Lymph % (Auto) 22.9 [place] % (Auto) 8.9 Eos % (Auto) 3.3 Baso % (Auto) 0.2 Immature Gran # (Auto) 0.02 Neut # (Auto) 5.49 Lymph # (Auto) 1.95 [place] # (Auto) 0.76 H Eos # (Auto) 0.28 Baso # (Auto) 0.02 PT 10.7 INR 1.0 APTT 32.6 H PTT Ratio 1.2 Sodium 137 Potassium 3.6 Chloride 101 Carbon Dioxide 28 Anion Gap 8.0 BUN 12 Creatinine 0.78 Est Cr Clr Drug Dosing 100.4 Est GFR ( Amer) 103.1 Est GFR (Non-Af Amer) 88.9 BUN/Creatinine Ratio 15.9 Glucose 213 H POC Glucose Calcium 8.8 Magnesium Total Bilirubin 0.6 AST 11 L ALT 23 Alkaline Phosphatase 159 H Troponin I 0.023 NT-Pro-B Natriuret Pep 5107 H Total Protein 7.3 Albumin 3.4 Globulin 3.9 Albumin/Globulin Ratio 0.9 TSH Free T4 Urine Color Urine Appearance Urine pH Ur Specific [place] Urine Protein Urine Glucose (UA) Urine Ketones Urine Blood Urine Nitrite Urine Bilirubin Urine Urobilinogen Ur Leukocyte Esterase Urine WBC (Auto) Urine RBC (Auto) U Hyaline Cast (Auto) U Epithel Cells (Auto) Urine Bacteria (Auto) Hepatitis C Ab Screen 07/08/19 07/08/19 07/09/19 19:07 21:50 00:22 WBC RBC Hgb Hct MCV MCH MCHC RDW Std Deviation RDW Coeff of Shellie Plt Count MPV Immature Gran % (Auto) Neut % (Auto) Lymph % (Auto) [place] % (Auto) Eos % (Auto) Baso % (Auto) Immature Gran # (Auto) Neut # (Auto) Lymph # (Auto) [place] # (Auto) Eos # (Auto) Baso # (Auto) PT INR APTT PTT Ratio Sodium Potassium Chloride Carbon Dioxide Anion Gap BUN Creatinine Est Cr Clr Drug Dosing Est GFR ( Amer) Est GFR (Non-Af Amer) BUN/Creatinine Ratio Glucose POC Glucose 274 H Calcium Magnesium 1.5 L Total Bilirubin AST ALT Alkaline Phosphatase Troponin I NT-Pro-B Natriuret Pep Total Protein Albumin Globulin Albumin/Globulin Ratio TSH 6.090 H Free T4 1.07 Urine Color Yellow Urine Appearance Clear Urine pH 6.5 Ur Specific [place] 1.020 Urine Protein 2+ H Urine Glucose (UA) 1+ H Urine Ketones Negative Urine Blood Trace H Urine Nitrite Negative Urine Bilirubin Negative Urine Urobilinogen Negative Ur Leukocyte Esterase Negative Urine WBC (Auto) 1-5 Urine RBC (Auto) 5-10 H U Hyaline Cast (Auto) 0 U Epithel Cells (Auto) 0-5 Urine Bacteria (Auto) Negative Hepatitis C Ab Screen 07/09/19 07/09/19 07/09/19 06:51 06:51 06:51 WBC 8.54 RBC 4.92 Hgb 15.2 Hct 45.6 MCV 92.7 MCH 30.9 MCHC 33.3 RDW Std Deviation 45.3 RDW Coeff of Shellie 13.4 Plt Count 324 MPV 10.0 Immature Gran % (Auto) 0.1 Neut % (Auto) 67.6 Lymph % (Auto) 20.7 Rob[place] % (Auto) 8.4 Eos % (Auto) 3.0 Baso % (Auto) 0.2 Immature Gran # (Auto) 0.01 Neut # (Auto) 5.76 Lymph # (Auto) 1.77 [place] # (Auto) 0.72 H Eos # (Auto) 0.26 Baso # (Auto) 0.02 PT INR APTT PTT Ratio Sodium 139 Potassium 3.7 Chloride 100 Carbon Dioxide 31 Anion Gap 7.0 BUN 14 Creatinine 0.85 Est Cr Clr Drug Dosing 90.9 Est GFR ( Amer) 99.5 Est GFR (Non-Af Amer) 85.8 BUN/Creatinine Ratio 16.5 Glucose 169 H POC Glucose Calcium 8.8 Magnesium 1.9 Total Bilirubin AST ALT Alkaline Phosphatase Troponin I NT-Pro-B Natriuret Pep Total Protein Albumin Globulin Albumin/Globulin Ratio TSH Free T4 Urine Color Urine Appearance Urine pH Ur Specific [place] Urine Protein Urine Glucose (UA) Urine Ketones Urine Blood Urine Nitrite Urine Bilirubin Urine Urobilinogen Ur Leukocyte Esterase Urine WBC (Auto) Urine RBC (Auto) U Hyaline Cast (Auto) U Epithel Cells (Auto) Urine Bacteria (Auto) Hepatitis C Ab Screen Neg 07/09/19 07/09/19 07/09/19 07:11 11:16 11:19 WBC RBC Hgb Hct MCV MCH MCHC RDW Std Deviation RDW Coeff of Shellie Plt Count MPV Immature Gran % (Auto) Neut % (Auto) Lymph % (Auto) [place] % (Auto) Eos % (Auto) Baso % (Auto) Immature Gran # (Auto) Neut # (Auto) Lymph # (Auto) [place] # (Auto) Eos # (Auto) Baso # (Auto) PT INR APTT PTT Ratio Sodium Potassium Chloride Carbon Dioxide Anion Gap BUN Creatinine Est Cr Clr Drug Dosing Est GFR ( Amer) Est GFR (Non-Af Amer) BUN/Creatinine Ratio Glucose POC Glucose 164 H 218 H Calcium Magnesium Total Bilirubin AST ALT Alkaline Phosphatase Troponin I 0.028 NT-Pro-B Natriuret Pep Total Protein Albumin Globulin Albumin/Globulin Ratio TSH Free T4 Urine Color Urine Appearance Urine pH Ur Specific [place] Urine Protein Urine Glucose (UA) Urine Ketones Urine Blood Urine Nitrite Urine Bilirubin Urine Urobilinogen Ur Leukocyte Esterase Urine WBC (Auto) Urine RBC (Auto) U Hyaline Cast (Auto) U Epithel Cells (Auto) Urine Bacteria (Auto) Hepatitis C Ab Screen 07/09/19 16:06 WBC RBC Hgb Hct MCV MCH MCHC RDW Std Deviation RDW Coeff of Shellie Plt Count MPV Immature Gran % (Auto) Neut % (Auto) Lymph % (Auto) [place] % (Auto) Eos % (Auto) Baso % (Auto) Immature Gran # (Auto) Neut # (Auto) Lymph # (Auto) [place] # (Auto) Eos # (Auto) Baso # (Auto) PT INR APTT PTT Ratio Sodium Potassium Chloride Carbon Dioxide Anion Gap BUN Creatinine Est Cr Clr Drug Dosing Est GFR ( Amer) Est GFR (Non-Af Amer) BUN/Creatinine Ratio Glucose POC Glucose 164 H Calcium Magnesium Total Bilirubin AST ALT Alkaline Phosphatase Troponin I NT-Pro-B Natriuret Pep Total Protein Albumin Globulin Albumin/Globulin Ratio TSH Free T4 Urine Color Urine Appearance Urine pH Ur Specific [place] Urine Protein Urine Glucose (UA) Urine Ketones Urine Blood Urine Nitrite Urine Bilirubin Urine Urobilinogen Ur Leukocyte Esterase Urine WBC (Auto) Urine RBC (Auto) U Hyaline Cast (Auto) U Epithel Cells (Auto) Urine Bacteria (Auto) Hepatitis C Ab Screen (1) Acute CHF Heart failure type: unspecified Qualified Code(s): I50.9 - Heart failure, unspecified
[2019-07-09] MEDS ORDERED: FUROSEMIDE 40 MG in SYRINGE 0 ML IV ONE (14:00)
[2019-07-09] MEDS: TRAZODONE HCL 50 MG TAB PO SCH (20:14)
[2019-07-09 22:32] LABS: Appearance Urine Clear (Clear); Bacteria Urine Automated Negative (Negative); Bilirubin Urine Negative (Negative); Blood Urine Trace (Negative); Cast Urine Automated 0 /lpf (0-5); Color Urine Yellow; Epithelial Cell Urine Auto 0-5 /lpf (0-5); Glucose Urine UA Negative (Negative); Ketones Urine Negative (Negative); Leukocyte Esterase Urine Negative (Negative); Nitrite Urine Negative (Negative); Protein Urine Trace (Negative); RBC Urine Automated 0-4 /hpf (0-4); Specific Gravity Urine 1.011 (1.000-1.030); Urobilinogen Urine Negative (Negative); WBC Urine Automated 0 /hpf (0-5); pH Urine 6.5 (4.5-7.5)
[2019-07-10] MEDS: IPRATROPIUM BROMIDE NEB SOLN 0.02% 2.5 ML VIAL INH SCH ×4 (00:27→19:28)
[2019-07-10] MEDS: LEVALBUTEROL 1.25MG/0.5ML NEB INH SCH ×4 (00:27→19:28)
[2019-07-10] MEDS: ISOSORBIDE DINITRATE 10 MG TAB PO SCH ×2 (06:28→12:21)
[2019-07-10 06:50] LABS: BUN Creatinine Ratio 23.3 (10-20); Calcium 8.8 mg/dl (8.5-10.1); Creatinine Clr Calc Pharmacy 95.4 ml/min; Est GFR (African American) 101.5; Est GFR (Non-African American) 87.6; Potassium 3.9 mmol/L (3.5-5.1)
[2019-07-10 06:54] LABS: Troponin I 0.018 ng/ml (0-0.045)
[2019-07-10] MEDS: POTASSIUM CHLORIDE 10 MEQ TABCR PO SCH ×2 (07:52→20:36)
[2019-07-10] MEDS: SPIRONOLACTONE 25 MG TAB PO SCH (07:52)
[2019-07-10] MEDS: ASPIRIN 81 MG ECTAB PO SCH (07:52)
[2019-07-10] MEDS: ENOXAPARIN INJ 40 MG/0.4 ML SYR SQ SCH (07:52)
[2019-07-10] MEDS: ESCITALOPRAM OXALATE 20 MG TAB PO SCH (07:53)
[2019-07-10] MEDS: CLOPIDOGREL BISULFATE 75 MG TAB PO SCH (07:53)
[2019-07-10] MEDS: ATORVASTATIN 20 MG TAB PO SCH (07:53)
[2019-07-10] MEDS: METOPROLOL SUCC 25MG EXT REL TAB PO SCH (07:53)
[2019-07-10] MEDS: INSULIN GLARGINE SOLOSTAR 100 UNITS/ML 3 ML PEN SQ SCH ×2 (08:37→20:38)
[2019-07-10] MEDS: INSULIN ASPART 100 UNITS/ML 3 ML PEN SC SCH ×4 (08:38→20:39)
--- NOTE | 2019-07-10 10:57 | Hospitalist Progress Note ---
Date of Service July 10, 2019 Assessment & Plan (1) Acute combined systolic and diastolic heart failure: Patient has chronic diastolic heart failure from Echo last year. Recent Echo show new systolic dysfunction with EF of 40-45% Patient currently in heart failure exacerbation Currently on iv diuretics. Spironolactone added Cardiology on board. Will follow recommendations. I/O yesterday was 1000/1265ml. Will give more iv furosemide today. Monitor I/O. Creatinine stable. Will continue to monitor. Continue metoprolol succinate. HR recorded this AM was 43. However, during my exam HR was 67. Will monitor HR Provided heart failure basic education Counselled patient on need for medication, dietary adherence and lifestyle modification (2) CAD (coronary artery disease), jena coronary artery: (3) Left bundle branch block (LBBB) on electrocardiogram: (4) Status post coronary artery bypass grafting: (5) Status post coronary artery stent placement: No chest pain Continue Aspirin, plavix and atorvastatin (6) COPD (chronic obstructive pulmonary disease): Stable Continue nebs (7) Diabetes mellitus, type 2: Check HbA1c Continue insulin regimen and carb controlled diet (8) Mood disorder: Stable Continue home med (9) CKD (chronic kidney disease) stage 2, GFR 60-89 ml/min: Cr is normal GFR has been in 80s for the past couple of months Avoid nephrotoxins (10) Discharge planning issues: Discussed with housing case manager. Patient had refused PT eval He had also refused home health services I discussed with patient the need for home health services considering his worsening heart failure and risks of readmission. He stated he will think about it (11) DVT prophylaxis: Lovenox sq Subjective Patient reports shortness of breath is improving. Still has mild dyspnea on exertion. Reports occasional intermittent cough Denied chest pain, PND, orthopnea. Denied fevers, chills, nausea vomiting Denied dysuria, frequency,urgency Still has leg swelling which he reports is getting better Review of Systems Review of Systems: All systems reviewed and unremarkable except for mentioned above. Physical Exam Constitutional: well developed and well nourished; no acute distress and not ill appearing Eyes: PERRL, conjunctivae normal, anicteric sclerae ENMT: external ear and nose normal, oropharynx normal Neck: trachea midline, no thyromegaly normal visual inspection Respiratory: normal respiratory effort; no respiratory distress and does not use accessory muscles Mild bibasilar fine crackles Cardiovascular: Rate/Rhythm: regular rate and regular rhythm Heart Sounds: normal S1 and normal S2 Extremities: + pedal edema Rate of 67bpm, Gastrointestinal (Abdomen): normal bowel sounds, soft, nontender, no hepatosplenomegaly Musculoskeletal: 1+ bilateral leg edema Neurologic: no focal motor deficits AOx 3 Psychiatric: A+Ox3, euthymic affect Results & Data Vital Signs (Past 12 Hours) Vital Signs Temp Pulse Resp BP BP Pulse Ox 07/10/19 07:30 36.8 C 43 L 16 132/61 93 07/10/19 06:54 48 L 18 93 07/10/19 03:32 36.7 C 92 H 20 122/62 93 07/10/19 00:28 83 18 94 07/09/19 23:36 36.7 C 87 22 124/67 92 Laboratory Results [facility] 07/10/19 05:59 Sodium 137 Potassium 3.9 Chloride 101 Carbon Dioxide 29 BUN 19 H Creatinine 0.81 Glucose 240 H Calcium 8.8 Cardiac Enzymes 07/09/19 07/10/19 Range/Units 11:19 05:59 Troponin I 0.028 0.018 (0-0.045) ng/ml Urine 07/09/19 Range/Units 21:54 Urine Color Yellow Urine Appearance Clear (Clear) Urine pH 6.5 (4.5-7.5) Ur Specific [place] 1.011 (1.000-1.030) Urine Protein Trace H (Negative) Urine Glucose (UA) Negative (Negative) Diagnostic Findings Echo 07/09/19 EF - 40-45% Diastolic dysfunction grade II Compared to prior study in 06/2018, decline in LVEF (1) CAD (coronary artery disease), jena coronary artery Associated angina: angina presence unspecified [place] vs. transplanted heart: jena heart Qualified Code(s): I25.10 - Atherosclerotic heart disease of jena coronary artery without angina pectoris
[2019-07-10] MEDS ORDERED: FUROSEMIDE 40 MG/4 ML VIAL IV STA (11:01)
--- NOTE | 2019-07-10 14:24 | Cardiology Progress Note ---
Date of Service July 10, 2019 Assessment & Plan (1) Acute combined systolic and diastolic heart failure: Likely underlying ischemic cardiomyopathy, with chronic RCA territory scar, this territory was not revascularized due to chronic occlusion at the time of CABG. Continue furosemide, patient received 40 mg at 11 AM, and will transition to 40 mg IV 2 times per day tomorrow. Will likely transition to torsemide at time of discharge. Pt not on VELMA due to allergy. Will clarify. (2) Left bundle branch block (LBBB) on electrocardiogram: LVEF is above the threshold where cardiac resynchronization therapy or AICD therapy would be indicated. (3) Status post coronary artery bypass grafting: Continue aspirin, Plavix, Lipitor metoprolol succinate, atorvastatin. Continue subcutaneous Lovenox 40 mg for DVT prophylaxis: Subjective Chief complaint: Follow-up shortness of breath Subjective: Patient states his shortness of breath is much improved. He describes a significant urinary output after receiving furosemide. Telemetry reveals sinus rhythm with left bundle branch block and occasional premature atrial contractions in the range of 60 to 80 bpm. Review of Systems Review of Systems: All systems reviewed & are unremarkable except as noted in HPI & below Physical Exam Physical Exam: Temp Pulse Resp BP Pulse Ox 36.8 C 62 18 117/62 93 07/10/19 11:43 07/10/19 13:27 07/10/19 13:27 07/10/19 11:43 07/10/19 13:27 Constitutional: WD/WN, vitals as above Respiratory: Auscultation: + diminished lung sounds (Mildly decreased breath sounds the bases bilaterally); no crackles, no rales, no rhonchi and no wheezes Cardiovascular: RRR, no murmur, no edema Vessels: + JVD (Jugular venous distention) Extremities: + edema (1+ bilateral lower extremity edema, sli ghtly improved compared to 07/09/2019) Results & Data Vital Signs (Past 12 Hours) Vital Signs Temp Pulse Pulse Resp BP BP Pulse Ox 07/10/19 13:27 62 18 93 07/10/19 11:43 36.8 C 16 L 68 117/62 90 07/10/19 07:30 36.8 C 43 L 16 132/61 93 07/10/19 06:54 48 L 18 93 07/10/19 03:32 36.7 C 92 H 20 122/62 93 Laboratory Results Sodium 137 Potassium 3.9 Chloride 101 CO2 29 BUN 19 Creatinine 0.81 Estimated GFR 87.6 mL/min/m [id number] glucose 279 Diagnostic Findings Transthoracic echocardiogram performed 07/09/2019 reviewed: Mild concentric left ventricular hypertrophy is present There is a moderate sized inferior, inferolateral wall motion abnormality with hypokinesis of the segments, LVEF 40 to 45%, compared to 07/06/2018 there is been a interval subtle decline in LVEF which had been 45%. Medications Administered Current Inpatient Medications Acetaminophen (Tylenol) 650 mg PO Q4H PRN PRN Reason: Pain or Fever Stop: 08/08/19 00:16 Aspirin (Ecotrin Ectab) 81 mg PO DAILY [facility] Stop: 08/08/19 08:59 Last Admin: 07/10/19 07:52 Dose: 81 mg Documented by: Atorvastatin Calcium (Lipitor) 40 mg PO DAILY [facility] Stop: 08/08/19 08:59 Last Admin: 07/10/19 07:53 Dose: 40 mg Documented by: Clopidogrel Bisulfate (Plavix) 75 mg PO DAILY [facility] Stop: 08/08/19 08:59 Last Admin: 07/10/19 07:53 Dose: 75 mg Documented by: Dextrose (Dextrose 50%) 25 - 50 ml IV UD PRN; Protocol PRN Reason: Hypoglycemia Protocol Stop: 08/08/19 00:16 Enoxaparin Sodium (Lovenox) 40 mg SQ QAM [facility] Stop: 08/08/19 08:59 Last Admin: 07/10/19 07:52 Dose: 40 mg Documented by: Escitalopram Oxalate (Lexapro Tab) 20 mg PO DAILY [facility] Stop: 08/08/19 08:59 Last Admin: 07/10/19 07:53 Dose: 20 mg Documented by: Glucagon (Glucagen) 1 mg SQ UD PRN; Protocol PRN Reason: Hypoglycemia Protocol Stop: 08/08/19 00:16 Glucose (Glucose 40%) 15 - 30 gm PO UD PRN; Protocol PRN Reason: Hypoglycemia Protocol Stop: 08/08/19 00:16 Glucose (Dex4 Glucose) 4 - 8 tabs PO UD PRN; Protocol PRN Reason: Hypoglycemia Protocol Stop: 08/08/19 00:16 Promethazine HCl 12.5 mg/ (Sodium Chloride) 50.5 mls @ 202 mls/hr IV Q6H PRN PRN Reason: Nausea And Vomiting Stop: 08/08/19 00:16 Furosemide 40 mg/ Syringe 4 mls @ 4 mls/min IV [id number] [facility] Stop: 08/10/19 06:59 Insulin Aspart (Novolog Flexpen) 0 units SC ACHS [facility] Stop: 08/08/19 00:16 Last Admin: 07/10/19 12:30 Dose: 6 units Documented by: Insulin Glargine (Lantus Solostar Pen) 25 units SQ BID [facility] Stop: 08/08/19 00:16 Last Admin: 07/10/19 08:37 Dose: 25 units Documented by: Ipratropium [place] (Atrovent 0.02% 0.5mg/2.5ml) 0.5 mg INH Q6R [facility] Stop: 08/08/19 00:59 Last Admin: 07/10/19 13:27 Dose: 0.5 mg Documented by: Isosorbide Dinitrate (Isordil) 10 mg PO Q12@0700,1200 [facility] Stop: 08/08/19 06:59 Last Admin: 07/10/19 12:21 Dose: 10 mg Documented by: Levalbuterol HCl (Xopenex 1.25mg/0.5ml Neb) 1.25 mg INH Q6R [facility] Stop: 08/08/19 00:59 Last Admin: 07/10/19 13:27 Dose: 1.25 mg Documented by: Loratadine (Claritin) 10 mg PO DAILY PRN PRN Reason: Allergy Symptoms Stop: 08/08/19 00:16 Metoprolol Succinate (Toprol Xl) 25 mg PO QAM [facility] Stop: 08/08/19 08:59 Last Admin: 07/10/19 07:53 Dose: 25 mg Documented by: Miscellaneous (Order Awaiting Action) 1 ea N/A QS [facility] Stop: 08/08/19 07:59 Last Admin: 07/10/19 09:31 Dose: Not Given Documented by: Miscellaneous (Carbohydrates For Hypoglycemia) 15 - 30 gm PO UD PRN PRN Reason: Hypoglycemia Treatment Stop: 08/08/19 00:16 Nitroglycerin (Nitrostat) 0.4 mg SL UD PRN PRN Reason: Chest Pain Stop: 08/08/19 00:16 Potassium Chloride (Klor-Con M10) 20 meq PO BID [facility] Stop: 08/08/19 08:59 Last Admin: 07/10/19 07:52 Dose: 20 meq Documented by: Spironolactone (Aldactone) 25 mg PO QAM [facility] Stop: 08/08/19 10:14 Last Admin: 07/10/19 07:52 Dose: 25 mg Documented by: Tramadol HCl (Ultram) 25 - 50 mg PO Q4H PRN PRN Reason: Pain Stop: 08/08/19 00:16 Trazodone HCl (Desyrel) 50 mg PO HS [facility] Stop: 08/08/19 20:59 Last Admin: 07/09/19 20:14 Dose: 50 mg Documented by:
[2019-07-10] MEDS: TRAZODONE HCL 50 MG TAB PO SCH (20:35)
[2019-07-11] MEDS: IPRATROPIUM BROMIDE NEB SOLN 0.02% 2.5 ML VIAL INH SCH ×4 (00:18→18:47)
[2019-07-11] MEDS: LEVALBUTEROL 1.25MG/0.5ML NEB INH SCH ×4 (00:18→18:47)
[2019-07-11 07:00] LABS: BUN Creatinine Ratio 24.1 (10-20); Calcium 8.8 mg/dl (8.5-10.1); Creatinine Clr Calc Pharmacy 88.1 ml/min; Est GFR (African American) 98.5; Potassium 4.3 mmol/L (3.5-5.1)
[2019-07-11] MEDS: INSULIN ASPART 100 UNITS/ML 3 ML PEN SC SCH ×4 (08:43→21:20)
[2019-07-11] MEDS: FUROSEMIDE 40 MG in SYRINGE 0 ML IV SCH ×2 (08:44→14:49)
[2019-07-11] MEDS: SPIRONOLACTONE 25 MG TAB PO SCH (08:45)
[2019-07-11] MEDS: ASPIRIN 81 MG ECTAB PO SCH (08:48)
[2019-07-11] MEDS: ATORVASTATIN 20 MG TAB PO SCH (08:48)
[2019-07-11] MEDS: POTASSIUM CHLORIDE 10 MEQ TABCR PO SCH ×2 (08:48→21:19)
[2019-07-11] MEDS: ISOSORBIDE DINITRATE 10 MG TAB PO SCH ×2 (08:49→12:11)
[2019-07-11] MEDS: CLOPIDOGREL BISULFATE 75 MG TAB PO SCH (08:49)
[2019-07-11] MEDS: METOPROLOL SUCC 25MG EXT REL TAB PO SCH (08:49)
[2019-07-11] MEDS: ESCITALOPRAM OXALATE 20 MG TAB PO SCH (08:49)
[2019-07-11] MEDS: INSULIN GLARGINE SOLOSTAR 100 UNITS/ML 3 ML PEN SQ SCH (08:50)
[2019-07-11] MEDS: ENOXAPARIN INJ 40 MG/0.4 ML SYR SQ SCH (08:52)
[2019-07-11 09:28] LABS: Estimated Average Glucose 214 mg/dl; Hemoglobin A1C 9.1 % (4.5-5.6)
--- NOTE | 2019-07-11 11:49 | Hospitalist Progress Note ---
Date of Service July 11, 2019 Assessment & Plan (1) Acute combined systolic and diastolic heart failure: Patient has chronic diastolic heart failure from Echo last year. Recent Echo show new systolic dysfunction with EF of 40-45% Patient currently in heart failure exacerbation Currently on iv diuretics. Spironolactone added Cardiology on board. Will follow recommendations. I/O yesterday was 1570/3200ml. Will continue iv furosemide 40mg bid today Monitor I/O. Creatinine stable. Will continue to monitor. Continue metoprolol succinate. Counselled patient again on need for medication, dietary adherence and lifestyle modification He agreed to let set up home health service on discharge (2) CAD (coronary artery disease), [place] coronary artery: (3) Left bundle branch block (LBBB) on electrocardiogram: (4) Status post coronary artery bypass grafting: (5) Status post coronary artery stent placement: No chest pain Continue Aspirin, plavix and atorvastatin (6) COPD (chronic obstructive pulmonary disease): Stable Continue nebs (7) Diabetes mellitus, type 2: Check HbA1c Continue insulin regimen and carb controlled diet (8) Mood disorder: Stable Continue home med (9) CKD (chronic kidney disease) stage 2, GFR 60-89 ml/min: Cr is normal GFR has been in 80s for some months Avoid nephrotoxins (10) Discharge planning issues: He is agreeable to home health services now (11) DVT prophylaxis: Lovenox sq Subjective Patient reports feeling much better. Improved cough and Dyspnea on mild exertion. Improving leg swelling Review of Systems Review of Systems: All systems reviewed and unremarkable except for mentioned above. Physical Exam Constitutional: WD/WN, vitals as above Eyes: PERRL, conjunctivae normal, anicteric sclerae ENMT: external ear and nose normal, oropharynx normal Neck: trachea midline, no thyromegaly No JVD Respiratory: normal respiratory effort; no respiratory distress Mild bibasilar fine crackles Cardiovascular: Rate/Rhythm: regular rate and regular rhythm Heart Sounds: normal S1 and normal S2 Extremities: + pedal edema (1+) Gastrointestinal (Abdomen): normal bowel sounds, soft, nontender, no hepatosplenomegaly Musculoskeletal: no cyanosis or clubbing, extremities motor strength 5/5 Neurologic: moves all extremities; no focal motor deficits Psychiatric: A+Ox3, euthymic affect Results & Data Vital Signs (Past 12 Hours) Vital Signs Temp Pulse Pulse Resp BP Pulse Ox 07/11/19 10:04 83 07/11/19 07:11 82 18 90 07/11/19 07:00 37.0 C 81 98 H 158/78 H 98 07/11/19 04:10 36.8 C 80 20 122/74 93 Laboratory Results [facility] 07/11/19 05:55 Sodium 137 Potassium 4.3 Chloride 101 Carbon Dioxide 30 BUN 21 H Creatinine 0.87 Glucose 222 H Calcium 8.8 (1) CAD (coronary artery disease), [place] coronary artery [place] vs. transplanted heart: [place] heart Associated angina: angina presence unspecified Qualified Code(s): I25.10 - Atherosclerotic heart disease of [place] coronary artery without angina pectoris
--- NOTE | 2019-07-11 12:53 | Cardiology Progress Note ---
Date of Service July 11, 2019 Assessment & Plan (1) Acute combined systolic and diastolic heart failure: Echocardiogram this admission revealed mild ventricular systolic dysfunction with LVEF in the range of 40 to 45%, down from 45 to 50% in June 2018. Likely underlying ischemic cardiomyopathy, with chronic RCA territory scar, this territory was not revascularized due to chronic occlusion at the time of CABG. Continue IV furosemide. Spironolactone added this admission. Outpatient chart reviewed, and I discussed the patient's past intolerance of VELMA inhibitors with him. He does not recall having trouble, but he does have a longstanding history of an ongoing dry cough. Per review of his outpatient chart, his previous PCP "VELMA inhibitor intolerance" in 2009 without additional detail. Per review of his previous prescriptions, he has never been on an angiotensin receptor mckayla. Will tentatively start him on Entresto while hospitalized hydrate as tolerated. Asked my office to try to determine his [id number] cost for this medication and to work on any prior authorization requirements. His most recent blood pressure was a little bit low at 90/48, but his blood pressures been on the higher side otherwise this admission. (2) Left bundle branch block (LBBB) on electrocardiogram: LVEF is above the threshold where cardiac resynchronization therapy or AICD therapy would be indicated. (3) Status post coronary artery bypass grafting: Continue aspirin, Plavix, Lipitor metoprolol succinate, atorvastatin. I have reached out to his primary process owner to determine the indication for ongoing dual antiplatelet therapy. Continue subcutaneous Lovenox 40 mg for DVT prophylaxis: Subjective Chief complaint: Follow-up shortness of breath Subjective: Patient continues to feel improved status post IV furosemide. He diuresed 3.2 L yesterday and last night. He received 40 mg of IV furosemide today, and is due for another dose this afternoon. Review of Systems Review of Systems: All systems reviewed & are unremarkable except as noted in HPI & below Physical Exam Physical Exam: Temp Pulse Resp BP Pulse Ox 36.2 C L 69 18 90/48 L 94 07/11/19 11:10 07/11/19 11:10 07/11/19 11:10 07/11/19 11:10 07/11/19 11:10 Constitutional: WD/WN, vitals as above Respiratory: Auscultation: + diminished lung sounds (Mildly decreased breath sounds at the bases); no crackles, no rales, no rhonchi and no wheezes Cardiovascular: RRR, no murmur, no edema Vessels: no JVD Extremities: + edema (Trace lower leg edema, trending toward improvement) Neurologic: PERRL, EOMI, accommodation nl, no face palsy, no dysarthria Results & Data Vital Signs (Past 12 Hours) Vital Signs Temp Pulse Pulse Resp BP Pulse Ox 07/11/19 11:10 36.2 C L 69 18 90/48 L 94 07/11/19 10:04 83 07/11/19 07:11 82 18 90 07/11/19 07:00 37.0 C 81 98 H 158/78 H 98 07/11/19 04:10 36.8 C 80 20 122/74 93 Laboratory Results Comprehensive Metabolic Panel 07/11/19 Range/Units 05:55 Sodium 137 (136-145) mmol/L Potassium 4.3 (3.5-5.1) mmol/L Chloride 101 (98-107) mmol/L Carbon Dioxide 30 (21-32) mmol/L BUN 21 H (7-18) mg/dl Creatinine 0.87 (0.6-1.4) mg/dl Glucose 222 H (70-99) mg/dl Calcium 8.8 (8.5-10.1) mg/dl Intake and Output 07/10/19 07/11/19 07/11/19 22:59 06:59 14:59 Intake Total 250 / 1570 480 / 1570 Output Total 1250 / 3200 850 / 3200 750 / 750 Balance -1000 / -1630 -370 / -1630 -750 / -750 Intake: Oral 250 / 1570 480 / 1570 Output: Urine 1250 / 3200 850 / 3200 750 / 750 Other: Weight 106.5 kg Medications Administered Current Inpatient Medications Acetaminophen (Tylenol) 650 mg PO Q4H PRN PRN Reason: Pain or Fever Stop: 08/08/19 00:16 Aspirin (Ecotrin Ectab) 81 mg PO DAILY [facility] Stop: 08/08/19 08:59 Last Admin: 07/11/19 08:48 Dose: 81 mg Documented by: Atorvastatin Calcium (Lipitor) 40 mg PO DAILY [facility] Stop: 08/08/19 08:59 Last Admin: 07/11/19 08:48 Dose: 40 mg Documented by: Clopidogrel Bisulfate (Plavix) 75 mg PO DAILY [facility] Stop: 08/08/19 08:59 Last Admin: 07/11/19 08:49 Dose: 75 mg Documented by: Dextrose (Dextrose 50%) 25 - 50 ml IV UD PRN; Protocol PRN Reason: Hypoglycemia Protocol Stop: 08/08/19 00:16 Enoxaparin Sodium (Lovenox) 40 mg SQ QAM [facility] Stop: 08/08/19 08:59 Last Admin: 07/11/19 08:52 Dose: 40 mg Documented by: Escitalopram Oxalate (Lexapro Tab) 20 mg PO DAILY [facility] Stop: 08/08/19 08:59 Last Admin: 07/11/19 08:49 Dose: 20 mg Documented by: Glucagon (Glucagen) 1 mg SQ UD PRN; Protocol PRN Reason: Hypoglycemia Protocol Stop: 08/08/19 00:16 Glucose (Glucose 40%) 15 - 30 gm PO UD PRN; Protocol PRN Reason: Hypoglycemia Protocol Stop: 08/08/19 00:16 Glucose (Dex4 Glucose) 4 - 8 tabs PO UD PRN; Protocol PRN Reason: Hypoglycemia Protocol Stop: 08/08/19 00:16 Promethazine HCl 12.5 mg/ (Sodium Chloride) 50.5 mls @ 202 mls/hr IV Q6H PRN PRN Reason: Nausea And Vomiting Stop: 08/08/19 00:16 Furosemide 40 mg/ Syringe 4 mls @ 4 mls/min IV [id number] [facility] Stop: 08/10/19 06:59 Last Admin: 07/11/19 08:44 Dose: 4 mls/min Documented by: Insulin Aspart (Novolog Flexpen) 0 units SC ACHS [facility] Stop: 08/08/19 00:16 Last Admin: 07/11/19 12:08 Dose: 2 units Documented by: Insulin Glargine (Lantus Solostar Pen) 25 units SQ BID [facility] Stop: 08/08/19 00:16 Last Admin: 07/11/19 08:50 Dose: 25 units Documented by: Ipratropium [place] (Atrovent 0.02% 0.5mg/2.5ml) 0.5 mg INH Q6R [facility] Stop: 08/08/19 00:59 Last Admin: 07/11/19 07:09 Dose: 0.5 mg Documented by: Isosorbide Dinitrate (Isordil) 10 mg PO Q12@0700,1200 [facility] Stop: 08/08/19 06:59 Last Admin: 07/11/19 12:11 Dose: 10 mg Documented by: Levalbuterol HCl (Xopenex 1.25mg/0.5ml Neb) 1.25 mg INH Q6R [facility] Stop: 08/08/19 00:59 Last Admin: 07/11/19 07:09 Dose: 1.25 mg Documented by: Loratadine (Claritin) 10 mg PO DAILY PRN PRN Reason: Allergy Symptoms Stop: 08/08/19 00:16 Metoprolol Succinate (Toprol Xl) 25 mg PO QAM [facility] Stop: 08/08/19 08:59 Last Admin: 07/11/19 08:49 Dose: 25 mg Documented by: Miscellaneous (Order Awaiting Action) 1 ea N/A QS [facility] Stop: 08/08/19 07:59 Last Admin: 07/11/19 08:44 Dose: Not Given Documented by: Miscellaneous (Carbohydrates For Hypoglycemia) 15 - 30 gm PO UD PRN PRN Reason: Hypoglycemia Treatment Stop: 08/08/19 00:16 Nitroglycerin (Nitrostat) 0.4 mg SL UD PRN PRN Reason: Chest Pain Stop: 08/08/19 00:16 Potassium Chloride (Klor-Con M10) 20 meq PO BID [facility] Stop: 08/08/19 08:59 Last Admin: 07/11/19 08:48 Dose: 20 meq Documented by: Sacubitril/Valsartan (Entresto 24/26mg) 1 tab PO BID [facility] Stop: 08/10/19 12:44 Spironolactone (Aldactone) 25 mg PO QAM [facility] Stop: 08/08/19 10:14 Last Admin: 07/11/19 08:45 Dose: 25 mg Documented by: Tramadol HCl (Ultram) 25 - 50 mg PO Q4H PRN PRN Reason: Pain Stop: 08/08/19 00:16 Trazodone HCl (Desyrel) 50 mg PO HS [facility] Stop: 08/08/19 20:59 Last Admin: 07/10/19 20:35 Dose: 50 mg Documented by:
[2019-07-11] MEDS: SACUBITRIL-VALSARTAN 24-26 MG TAB PO SCH (14:48)
[2019-07-11] MEDS ORDERED: PHARMACY GLYCEMIC MGMT CONSULT PRN (15:13)
[2019-07-11] MEDS ORDERED: INSULIN GLARGINE SOLOSTAR 100 UNITS/ML 3 ML PEN SC ONE (21:00)
[2019-07-11] MEDS: TRAZODONE HCL 50 MG TAB PO SCH (21:19)
[2019-07-12] MEDS: IPRATROPIUM BROMIDE NEB SOLN 0.02% 2.5 ML VIAL INH SCH ×3 (00:46→13:13)
[2019-07-12] MEDS: LEVALBUTEROL 1.25MG/0.5ML NEB INH SCH ×3 (00:46→13:12)
[2019-07-12 07:36] LABS: BUN Creatinine Ratio 26.3 (10-20); Calcium 8.7 mg/dl (8.5-10.1); Creatinine Clr Calc Pharmacy 85.9 ml/min; Est GFR (African American) 98.1; Est GFR (Non-African American) 84.6; Potassium 3.8 mmol/L (3.5-5.1)
[2019-07-12] MEDS: FUROSEMIDE 40 MG in SYRINGE 0 ML IV SCH (08:27)
[2019-07-12] MEDS: ESCITALOPRAM OXALATE 20 MG TAB PO SCH (08:28)
[2019-07-12] MEDS: ISOSORBIDE DINITRATE 10 MG TAB PO SCH ×2 (08:28→12:38)
[2019-07-12] MEDS: POTASSIUM CHLORIDE 10 MEQ TABCR PO SCH (08:28)
[2019-07-12] MEDS: CLOPIDOGREL BISULFATE 75 MG TAB PO SCH (08:28)
[2019-07-12] MEDS: ATORVASTATIN 20 MG TAB PO SCH (08:28)
[2019-07-12] MEDS: ASPIRIN 81 MG ECTAB PO SCH (08:28)
[2019-07-12] MEDS: METOPROLOL SUCC 25MG EXT REL TAB PO SCH (08:28)
[2019-07-12] MEDS: ENOXAPARIN INJ 40 MG/0.4 ML SYR SQ SCH (08:29)
[2019-07-12] MEDS: SACUBITRIL-VALSARTAN 24-26 MG TAB PO SCH (08:29)
[2019-07-12] MEDS: SPIRONOLACTONE 25 MG TAB PO SCH (08:29)
[2019-07-12] MEDS: INSULIN ASPART 100 UNITS/ML 3 ML PEN SC SCH ×2 (08:30→12:38)
[2019-07-12] MEDS ORDERED: INSULIN GLARGINE SOLOSTAR 100 UNITS/ML 3 ML PEN SC ONE (09:00)
[2019-07-12 12:03] VITALS: TEMP 97.9
--- NOTE | 2019-07-12 13:02 | Cardiology Progress Note ---
Date of Service July 12, 2019 Assessment & Plan (1) Acute combined systolic and diastolic heart failure: 74-year-old male who presented with exertional shortness of breath and chest pressure due to acute decompensation on chronic systolic heart failure due to underlying ischemic cardiomyopathy. Echocardiogram this admission reveals LVEF in the range of 40 to 45%, was 45% at time of CABG in 2017. Weight is trended down from 110.9 kg on admission to 103.5 kg today. Has had a persistently negative fluid balance with treatment including furosemide 40 mg IV twice daily, with most recent dose at 7 AM this morning. Recommend discharge on the following medications: Aspirin 81 mg daily Clopidogrel 75 mg daily (the patient denies past history of stroke, I reviewed his outpatient medication list, and I believe this medication has been continued on a chronic basis since his remote PCI in [place] many years before his most recent CABG, multiple medication changes are being made at present, will continue this for now, ongoing clopidogrel treatment can be reassessed once patient is well compensated and tolerating his medication program as an outpatient) Metoprolol succinate 25 mg p.o. daily Spironolactone 25 mg by mouth daily. (New) Entresto 24/26 mg, 1 tablet p.o. twice daily (new, I have my office look into the patient's [id number] cost for this, co-pay is anticipated to be $8 per month). -Patient with a prior history of "VELMA inhibitor intolerance ". This was documented in his outpatient chart in 2009, he has tolerated Entresto x2 doses thus far. Torsemide 10 mg p.o. daily in the morning (new). Atorvastatin 40 mg p.o. daily Isordil 10 mg 2 times per day at 7 AM and 12 noon -Outpatient cardiology follow-up recommended within 2 weeks post discharge. Subjective Chief complaint: Follow-up shortness of breath Subjective: Patient states he feels significantly improved. Telemetry reveals sinus rhythm in the 60 bpm range with occasional PVCs and underlying left bundle branch block. Review of Systems Review of Systems: All systems reviewed & are unremarkable except as noted in HPI & below Physical Exam Physical Exam: Temp Pulse Resp BP Pulse Ox 36.6 C 70 18 107/68 89 L 07/12/19 12:03 07/12/19 12:03 07/12/19 12:03 07/12/19 12:03 07/12/19 12:03 Constitutional: WD/WN, vitals as above Respiratory: normal respiratory effort, lungs clear to auscultation Cardiovascular: RRR, no murmur, no edema Vessels: no JVD Gastrointestinal (Abdomen): normal bowel sounds, soft, nontender, no hepatosplenomegaly Neurologic: PERRL, EOMI, accommodation nl, no face palsy, no dysarthria Results & Data Vital Signs (Past 12 Hours) Vital Signs Temp Pulse Pulse Resp BP BP Pulse Ox 07/12/19 12:03 36.6 C 70 18 107/68 89 L 07/12/19 08:10 37.0 C 83 18 118/65 90 07/12/19 08:00 82 07/12/19 06:50 77 16 92 07/12/19 04:03 37.2 C 68 18 112/63 91 Laboratory Results Comprehensive Metabolic Panel 07/12/19 Range/Units 06:47 Sodium 138 (136-145) mmol/L Potassium 3.8 (3.5-5.1) mmol/L Chloride 101 (98-107) mmol/L Carbon Dioxide 32 (21-32) mmol/L BUN 23 H (7-18) mg/dl Creatinine 0.88 (0.6-1.4) mg/dl Glucose 130 H (70-99) mg/dl Calcium 8.7 (8.5-10.1) mg/dl Intake and Output 07/11/19 07/12/19 07/12/19 22:59 06:59 14:59 Intake Total 240 / 800 200 / 800 Output Total 750 / 2100 600 / 2100 Balance -510 / -1300 -400 / -1300 Intake: Oral 240 / 800 200 / 800 Output: Urine 750 / 2100 600 / 2100 Other: Weight 103.5 kg Medications Administered Current Inpatient Medications Acetaminophen (Tylenol) 650 mg PO Q4H PRN PRN Reason: Pain or Fever Stop: 08/08/19 00:16 Aspirin (Ecotrin Ectab) 81 mg PO DAILY [facility] Stop: 08/08/19 08:59 Last Admin: 07/12/19 08:28 Dose: 81 mg Documented by: Atorvastatin Calcium (Lipitor) 40 mg PO DAILY [facility] Stop: 08/08/19 08:59 Last Admin: 07/12/19 08:28 Dose: 40 mg Documented by: Clopidogrel Bisulfate (Plavix) 75 mg PO DAILY [facility] Stop: 08/08/19 08:59 Last Admin: 07/12/19 08:28 Dose: 75 mg Documented by: Dextrose (Dextrose 50%) 25 - 50 ml IV UD PRN; Protocol PRN Reason: Hypoglycemia Protocol Stop: 08/08/19 00:16 Enoxaparin Sodium (Lovenox) 40 mg SQ QAM [facility] Stop: 08/08/19 08:59 Last Admin: 07/12/19 08:29 Dose: 40 mg Documented by: Escitalopram Oxalate (Lexapro Tab) 20 mg PO DAILY [facility] Stop: 08/08/19 08:59 Last Admin: 07/12/19 08:28 Dose: 20 mg Documented by: Glucagon (Glucagen) 1 mg SQ UD PRN; Protocol PRN Reason: Hypoglycemia Protocol Stop: 08/08/19 00:16 Glucose (Glucose 40%) 15 - 30 gm PO UD PRN; Protocol PRN Reason: Hypoglycemia Protocol Stop: 08/08/19 00:16 Glucose (Dex4 Glucose) 4 - 8 tabs PO UD PRN; Protocol PRN Reason: Hypoglycemia Protocol Stop: 08/08/19 00:16 Promethazine HCl 12.5 mg/ (Sodium Chloride) 50.5 mls @ 202 mls/hr IV Q6H PRN PRN Reason: Nausea And Vomiting Stop: 08/08/19 00:16 Insulin Aspart (Novolog Flexpen) 0 units SC ACHS [facility] Stop: 08/08/19 00:16 Last Admin: 07/12/19 12:38 Dose: 7 units Documented by: Ipratropium [place] (Atrovent 0.02% 0.5mg/2.5ml) 0.5 mg INH Q6R [facility] Stop: 08/08/19 00:59 Last Admin: 07/12/19 06:50 Dose: 0.5 mg Documented by: Isosorbide Dinitrate (Isordil) 10 mg PO Q12@0700,1200 [facility] Stop: 08/08/19 06:59 Last Admin: 07/12/19 12:38 Dose: 10 mg Documented by: Levalbuterol HCl (Xopenex 1.25mg/0.5ml Neb) 1.25 mg INH Q6R [facility] Stop: 08/08/19 00:59 Last Admin: 07/12/19 06:50 Dose: 1.25 mg Documented by: Loratadine (Claritin) 10 mg PO DAILY PRN PRN Reason: Allergy Symptoms Stop: 08/08/19 00:16 Metoprolol Succinate (Toprol Xl) 25 mg PO QAM [facility] Stop: 08/08/19 08:59 Last Admin: 07/12/19 08:28 Dose: 25 mg Documented by: Miscellaneous (Order Awaiting Action) 1 ea N/A QS [facility] Stop: 08/08/19 07:59 Last Admin: 07/12/19 08:42 Dose: Not Given Documented by: Miscellaneous (Carbohydrates For Hypoglycemia) 15 - 30 gm PO UD PRN PRN Reason: Hypoglycemia Treatment Stop: 08/08/19 00:16 Miscellaneous Information (Consult Glycemic Management Pharmacy) 1 ea N/A UD PRN PRN Reason: Consult Stop: 08/10/19 15:12 Nitroglycerin (Nitrostat) 0.4 mg SL UD PRN PRN Reason: Chest Pain Stop: 08/08/19 00:16 Potassium Chloride (Klor-Con M10) 20 meq PO BID [facility] Stop: 08/08/19 08:59 Last Admin: 07/12/19 08:28 Dose: 20 meq Documented by: Sacubitril/Valsartan (Entresto 24/26mg) 1 tab PO BID [facility] Stop: 08/10/19 12:44 Last Admin: 07/12/19 08:29 Dose: 1 tab Documented by: Spironolactone (Aldactone) 25 mg PO QAM [facility] Stop: 08/08/19 10:14 Last Admin: 07/12/19 08:29 Dose: 25 mg Documented by: Torsemide (Demadex) 10 mg PO QAM [facility] Stop: 08/12/19 08:59 Tramadol HCl (Ultram) 25 - 50 mg PO Q4H PRN PRN Reason: Pain Stop: 08/08/19 00:16 Trazodone HCl (Desyrel) 50 mg PO HS [facility] Stop: 08/08/19 20:59 Last Admin: 07/11/19 21:19 Dose: 50 mg Documented by:
[2019-07-12 13:15] VITALS: O2SAT 91
--- NOTE | 2019-07-12 13:39 | Pharmacy Report ---
Glycemic Control Consultation - Date of Service July 12, 2019 - Scope Scope: Glycemic Pharmacist consulted by Dr Lizarraga on 07/11/19 for glycemic control and to write orders per [facility] inpatient glycemic control protocol - Objective Weight: 103.5 kg Accuchecks BSG (last 24hrs): 07/11/19 07/11/19 07/12/19 16:22 20:14 06:47 Glucose 130 H POC Glucose 205 H 148 H 07/12/19 07/12/19 07:27 11:43 Glucose POC Glucose 129 H 169 H Laboratory Data (last 24hrs): 07/12/19 06:47 Potassium 3.8 Carbon Dioxide 32 Anion Gap 5.0 Creatinine 0.88 Est Cr Clr Drug Dosing 85.9 HbA1c: Hemoglobin A1c 9.1 % (4.5-5.6) H 07/11/19 05:55 - Recent Pertinent Medications Outpatient Anti-diabetic Regimen: * SSI novolog * A1c = 9.1 % 07/11/19 - Assessment & Plan Assessment & Plan: ASSESSMENT: * Pt is a 74yo M. Pw CHF exacerbation. PMHx consistent with HFrEF/HFpEF, CAD, HLD, DM-II, among others. A1C of 9.1% indicative of poor outpt glycemic management. PLAN FOR INPATIENT GLYCEMIC CONTROL: * Basal insulin * Lantus scale SQ BID * give 15 units for BSGs <120 * give 20 units for BSGs 120-180 * give 30 units for BSGs >180 * Bolus insulin * NovoLog per scale ACHS or Q6hrs while NPO * Goal Range: Low 110 mg/dL - High 140 mg/dL * Correction Factor: 20 mg/dL/unit * Nutritional / Prandial insulin per carb ratio of 1 unit per 7 grams CHO consumed * Please note that the plan above was derived based on current level of insulin resistance and hospital stress. These recommendations are appropriate for inpatient admission only. Plan of care upon discharge will need to be reassessed to avoid potential outpatient hypo/hyperglycemia. Thank you.
--- NOTE | 2019-07-12 14:06 | Pharmacy Report ---
Pharmacy Glycemic Short Note 2 - Date of Service July 12, 2019 - Glycemic Short BSG Results (Last 24 hours): 07/11/19 07/11/19 07/12/19 16:22 20:14 06:47 Glucose 130 H POC Glucose 205 H 148 H 07/12/19 07/12/19 07:27 11:43 Glucose POC Glucose 129 H 169 H PLAN FOR DISCHARGE: * Recommend lantus 25 units BID, then titration per outpt provider * Given significant cardiovascular comorbidities he would benefit from re- starting metformin XR 500mg daily with dinner. XR metformin is associated with lower GI TAYO * in lieu of metformin he could try empagliflozin 10mg daily or a GLP1 if his socioeconomic status permits
--- NOTE | 2019-07-12 15:34 | Discharge Summary ---
Date of Service July 12, 2019 Admission HPI Per Admitting Provider History obtained from patient, family, and records. Medical history significant for chronic diastolic heart failure (EF 55 to 60%, TTE 2018), CAD status post CABG, stent, chronic left bundle branch block, history PAF, hypertension, hyperlipidemia, COPD, past tobacco abuse, DM 2 insulin requiring, mood disorder. Recent confinement August 2018 for chest pain. 2 days history of increased fluid retention, leg swelling, about 11 pound weight gain as per patient. Diuretic Rx prescribed by PCP. Worsening symptoms followed by increasing shortness of breath without chest pain, usual dry cough symptoms the next 2 days. Patient denies headache. Does not check his pressure at home but blood pressure always good at doctor's office as per patient. Family worried about patient having MARY ANN. Admits to occasionally forgetting to take his blood pressure pills. Admits to dietary indiscretion, not being too conscious about salt intake. Intermittent NSAID intake for body aches. Patient drove himself to the emergency room tonight. Given Lasix at the ER. 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 Admission Exam Per Admitting Provider GENERAL: Obese, no overt respiratory distress SKIN: Normal color, warm HEENT: Alopecia, [place] palpebral conjunctivae, no ptosis, dry buccal mucosa NECK : Supple, short neck, no tenderness CHEST : Decreased breath sounds, scattered crackles, no tenderness HEART : RRR, no obvious murmurs ABDOMEN: distention, nontender EXTREMITIES : Bilateral LE swelling, no LE tenderness, no other conspicuous deformities noted NEUROLOGIC : Coherent, no facial asymmetry, no other gross focality Principal Diagnosis Acute combined systolic and diastolic heart failure Poorly controlled Diabetes mellitus, type 2 CKD (chronic kidney disease) stage 2, GFR 60-89 ml/min History of CAD Discharge Exam Constitutional well developed and well nourished; no acute distress Eyes PERRL, conjunctivae normal, anicteric sclerae ENMT external ear and nose normal, oropharynx normal Respiratory normal respiratory effort, lungs clear to auscultation Cardiovascular RRR, no murmur, no edema Vessels: no JVD Gastrointestinal (Abdomen) normal bowel sounds, soft, nontender, no hepatosplenomegaly Neurologic PERRL, EOMI, accommodation nl, no face palsy, no dysarthria Psychiatric A+Ox3, euthymic affect Discharge Data Allergies Allergy/AdvReac Type Severity Reaction Status Date / Time VELMA Inhibitors Allergy Unknown unknown Verified 09/05/18 06:10 Consultations 07/08/19 21:20 ED Decision to Admit Stat 07/09/19 00:17 Consult Cardiology Routine Hospital Course (1) Acute combined systolic and diastolic heart failure: Patient has chronic diastolic heart failure from Echo last year. Recent Echo show new systolic dysfunction with EF of 40-45% compared to Echo in 2018 Patient managed for heart failure exacerbation Managed with iv lasix. Spironolactone added Creatinine remained stable. Continue metoprolol succinate. Counselled patient again on need for medication, dietary adherence and lifestyle modification He agreed to let [employer] set up home health service on discharge Per Cardiology recommendations, discharged on entresto (which he tolerated well inpatient), torsemide, spironolactone, metoprolol succinate (2) CAD (coronary artery disease), [place] coronary artery: (3) Left bundle branch block (LBBB) on electrocardiogram: (4) Status post coronary artery bypass grafting: (5) Status post coronary artery stent placement: No chest pain Discharged on Aspirin, plavix and atorvastatin (6) Diabetes mellitus, type 2: HbA1c was 9.1 Counselled extensively on need for adequate glycemic control Discharge on lantus 25U bid. stop novolog sliding scale for now Discharge on metformin ER 500mg daily Advised to keep a blood glucose log for outpatient provider to continue to optimize glycemic control Provided diabetes education (7) Mood disorder: Stable Continue home med (8) CKD (chronic kidney disease) stage 2, GFR 60-89 ml/min: Cr is normal GFR has been in 80s for some months Avoid nephrotoxins Total Time Total Time Spent Total Time Spent (In Minutes): 35 Total Time Includes: Examination of the Patient, Discharge Planning, Medication Reconciliation and Communication With Other Providers Discharge Plan Discharge Items Patient Disposition: Home - Home Health Services Reason For Visit: CHF Discharge Diagnosis: Acute combined systolic and diastolic heart failure Condition on Discharge: Good Activity: Resume your previous activity Non-emergency contact: Primary Care Provider and School Operations Manager Call non-emergency contact if: you have any medication questions and your symptoms worsen Follow-up/Referrals: Abilio Arteaga, [School Operations Manager] - (Follow up within 2 weeks) Viet Holly, [Primary Care Provider] - Diet: Carb Consistent or DM2 and Heart Healthy Fluids: 2000ml (8 cups) Ambulatory Orders: Basic Metabolic Panel (Routine) Timeframe: [id number] Location: Determined by Patient Ordered By: Ligia Olmedo Attending Provider Instructions: Mr Turner You came to the hospital due to shortness of breath, leg swelling and 11 pound weight gain. You were evaluated and found to have heart failure exacerbation. Echocardiography showed worsening of your heart function (Ejection fraction now 40 -45%). You were started on iv diuretics. Much of the fluid overload were removed with diuresis. Your diabetes mellitus was also found to be poorly controlled. The following changes and additions were made to your medications: -Please continue to take Aspirin 81mg daily -Please take clopidogrel 75mg daily -Take metoprolol succinate 25mg daily -Take Spironolactone 25mg daily -Please take Entresto 24/26mg , 1 tablet twice daily -Take torsemide 10mg daily in the morning -Take atorvastatin 40mg daily -Please take isordil 10mg twice a day (at 7am and at 12 noon) Please ensure you follow up with the Cardiology office within 2 weeks Please follow up with your Primary Doctor. For your Diabetes mellitus. -Please take lantus 25Units twice a day ( in morning and at night) -Take metformin XR 500mg daily -Stop taking the novolog for now. Keep a log of your home blood glucose measurement to help your Primary Doctor make adjustment as needed Please get blood test BMP in 1 week to monitor your kidney function and potassium level. It was a pleasure taking care of you. Pending Studies at Discharge: No Stand-Alone Forms: My [facility] [place], Smoking Cessation Medications and DC Order Prescriptions: New Entresto 24-26 mg Tablet 1 tab PO BID 30 Days Qty: 60 RF: 0 spironolactone 25 mg Tablet 25 mg PO QAM 30 Days Qty: 30 RF: 0 torsemide 10 mg Tablet 10 mg PO QAM 30 Days Qty: 30 RF: 0 Lantus Solostar U-100 Insulin 100 unit/mL (3 mL) Insulin Pen 25 unit subcut BID 30 Days Qty: 15 RF: 0 metformin 500 mg tablet extended release 24hr 500 mg PO DAILY Qty: 30 RF: 0 insulin admin supplies insulin pen .ROUTE .MEDSUPPLY Qty: 1 RF: 0 Continued atorvastatin 20 mg tablet 40 mg PO DAILY RF: 0 escitalopram oxalate 20 mg tablet 20 mg PO DAILY RF: 0 prednisone 20 mg Tablet 20 mg PO UD PRN (Reason: Shortness Of Breath & Wheezing) RF: 0 aspirin 81 mg Tablet,Delayed Release (Dr/Ec) 81 mg PO DAILY RF: 0 calcipotriene [Dovonex] 0.005 % Cream 1 applic TOPICAL BID RF: 0 nitroglycerin 400 mcg/spray [place],Non-Aerosol 1 spry Sublingual UD PRN (Reason: Chest Pain) RF: 0 loratadine [Claritin] 10 mg Tablet 10 mg PO DAILY PRN (Reason: Allergy Symptoms) RF: 0 albuterol sulfate [Ventolin HFA] 90 mcg/actuation HFA aerosol inhaler 2 puff inhalation Q4H PRN (Reason: Shortness Of Breath Or Wheezing) RF: 0 fluticasone propionate 50 mcg/actuation spray,suspension 2 spray intranasal DAILY RF: 0 trazodone 50 mg tablet 50 mg PO HS RF: 0 albuterol sulfate 2.5 mg /3 mL (0.083 %) Solution For Nebulization 2.5 mg INHALATION QID RF: 0 Dulera 100-5 mcg/actuation HFA aerosol inhaler 2 puff inhalation BID RF: 0 doxepin 3 mg Tablet 3 mg PO HS RF: 0 clopidogrel 75 mg tablet 75 mg PO DAILY 30 Days Qty: 30 RF: 0 metoprolol succinate 25 mg tablet extended release 24 hr 25 mg PO DAILY 30 Days Qty: 30 RF: 0 Changed isosorbide dinitrate 10 mg tablet 10 mg PO BID 30 Days Qty: 60 RF: 0 Discontinued Novolog PenFill U-100 Insulin 100 unit/mL Cartridge 1 sliding scale dose SUBCUT ACHS RF: 0 furosemide 20 mg tablet 20 mg PO Q2D RF: 0 Discharge Orders: Discharge Order (Routine); Ordered 07/12/19 Ordered By: Ligia Lizarraga Admission Data Admit Date/Time: 07/08/19 22:26 Attending Provider: Ligia Lizarraga I. Admit Provider: Maged Monteiro Primary Care Provider: Viet Holly Other Providers: Maged Monteiro ; Wilber Bermeo ; Munir Ziegler. Other Interventions: Discharge Summary Assessment (RN) Last Done: 07/12/19 15:38 DC Date/Time DO NOT enter until pt leaves facility: 07/12/19 17:34
[2019-07-12 15:43] VITALS: BP 112/63; PULSE 66
[2019-07-12] MEDS ORDERED: INSULIN GLARGINE SOLOSTAR 100 UNITS/ML 3 ML PEN SQ SCH (21:00)
[2019-07-13] MEDS ORDERED: TORSEMIDE 10 MG TAB PO SCH (09:00)
== END 2019-07-12 17:34 | disposition home health service (06) | DRG 291 ==
LOC: ED 18:22 → 2S 22:26 → SUATTDRO 22:26 → 2S 23:06

== ENCOUNTER 2020-03-19 17:15 | Inpatient (IN) ==
[2020-03-19 18:18] LABS: Basophils # (auto) 0.01 K/uL (0-0.2); Basophils % (auto) 0.1 %; Eosinophils # (auto) 0.11 K/uL (0-0.5); Eosinophils % (auto) 1.4 %; Hematocrit (blood only) 45.4 % (42-52); Hemoglobin 14.5 g/dL (14.0-18.0); Immature Granulocytes # (auto) 0.02 K/uL (0.00-0.02); Immature Granulocytes % (auto) 0.2 %; Lymphocytes # (auto) 1.29 K/uL (1.2-3.4); Lymphocytes % (auto) 15.9 %; Mean Corpuscular Hemoglobin 30.3 pg (25-34); Mean Corpuscular Hgb Conc 31.9 g/dL (32-36); Mean Platelet Volume 10.2 fL (7.4-10.4); Monocytes % (auto) 9.9 %; Neutrophils # (auto) 5.89 K/uL (1.4-6.5); Neutrophils % (auto) 72.5 %; Platelet Count 347 K/uL (130-400); RDW Coefficient of Variation 13.8 % (11.5-14.5); RDW Standard Deviation 47.7 fL (36.4-46.3); Red Blood Count 4.78 M/uL (4.7-6.1); White Blood Count 8.12 K/uL (4.8-10.8)
[2020-03-19 18:25] LABS: Alanine Aminotransferase 17 U/L (12-78); Albumin Level 3.1 gm/dl (3.4-5.0); Aspartate Aminotransferase 10 U/L (15-37); BUN Creatinine Ratio 14.6 (10-20); Blood Urea Nitrogen 11 mg/dl (7-18); Calcium 8.5 mg/dl (8.5-10.1); Carbon Dioxide 32 mmol/L (21-32); Chloride 102 mmol/L (98-107); Est GFR (African American) 106.5; Est GFR (Non-African American) 91.9; Glucose 191 mg/dl (70-99); Potassium 3.5 mmol/L (3.5-5.1); Sodium 140 mmol/L (136-145)
[2020-03-19 18:30] LABS: Albumin Globulin Ratio 0.8 (0.9-2); Alkaline Phosphatase 143 U/L (45-117); Bilirubin,Total 0.7 mg/dl (0.2-1); Globulin 3.7 gm/dl (2.5-4.0); INR 1.1 (0.9-1.1); NT Pro B Type Natriuretic Pept 9275 pg/ml (0-900); Partial Thromboplastin Ratio 1.3; Partial Thromboplastin Time 37.3 Seconds (21.0-31.0); Prothrombin Time 11.8 Seconds (9.0-12.0); Total Protein 6.8 gm/dl (6.4-8.2); Troponin I 0.017 ng/ml (0-0.045)
--- NOTE | 2020-03-19 18:45 | XRay Report ---
SINGLE VIEW CHEST CLINICAL HISTORY: Dyspnea. FINDINGS: An AP, portable, upright chest radiograph is compared to study dated 07/08/2019 and correla luke with chest CT dated 09/05/2018. The examination is degraded by portable technique and patient rot ation. The patient is status post midline sternotomy. The heart is enlarged noting atherosclerotic c alcification of the thoracic aorta. There is pulmonary vascular congestion. There is a small left ple ural effusion with left basilar consolidation. No pneumothorax is seen. The skeletal structures are o steopenic. The bony thorax is grossly intact. IMPRESSION: 1. Cardiomegaly with evidence of congestive failure. 2. Small left pleural effusion with left basilar consolidation ACT 112: Negative or not required by law. Electronically signed by: Jakob Martinez M.D. 03/19/2020 6:44 PM
--- NOTE | 2020-03-19 18:49 | Emergency Department Note ---
History of Present Illness General Chief complaint: Shortness of Breath/Dyspnea Stated complaint: FLUID BUILDUP,DIFFICULTY BREATHING Time Seen by Provider: 03/19/20 17:56 Source: patient Mode of arrival: ambulatory Limitations: no limitations History of Present Illness Provider complaint: Shortness of breath This is a 74-year-old male who presents to the ED with a chief complaint of bilateral leg swelling as well as shortness of breath that is been increasing over the past week or more. The patient states that he has had similar symptoms back in June. He states that his shortness of breath is worse with exertion. He states that he has had to sleep sitting up at night for the past week because of his symptoms. His symptoms are worse when he lies down. He also states that he has been taking diuretics but he has not yet been urinating as much as usual. He states that he is only urinating about 2 or 3 times a day. Home Medications Home Medications Medication Instructions Recorded Confirmed Type aspirin 81 mg PO DAILY 09/05/18 07/08/19 History atorvastatin 40 mg PO DAILY 09/05/18 07/08/19 History calcipotriene [Dovonex] 1 applic TOPICAL BID 09/05/18 07/08/19 History escitalopram oxalate 20 mg PO DAILY 09/05/18 07/08/19 History loratadine [Claritin] 10 mg PO DAILY PRN 09/05/18 07/08/19 History nitroglycerin 1 spry SUBLINGUAL UD PRN 09/05/18 07/08/19 History prednisone 20 mg PO UD PRN 09/05/18 07/08/19 History Dulera 2 puff INHALATION BID 07/08/19 07/08/19 History albuterol sulfate 2.5 mg INHALATION QID 07/08/19 07/08/19 History albuterol sulfate [Ventolin HFA] 2 puff INHALATION Q4H PRN 07/08/19 07/08/19 History doxepin 3 mg PO HS 07/08/19 07/08/19 History fluticasone propionate 2 spray INTRANASAL DAILY 07/08/19 07/08/19 History trazodone 50 mg PO HS 07/08/19 07/08/19 History insulin admin supplies #1 ea 07/12/19 Rx metformin 500 mg PO DAILY #30 tab 07/12/19 Rx Allergies Allergy/AdvReac Type Severity Reaction Status Date / Time VELMA Inhibitors Allergy Unknown unknown Verified 09/05/18 06:10 Past Med/Surg History Medical History Anxiety (Chronic) CAD (coronary artery disease), [place] coronary artery (Chronic) "[place] 1998 [place] 2005 followed by PCI, non-STEMI 2017 followed by CABG" COPD (chronic obstructive pulmonary disease) (Chronic) Depression (Chronic) Left bundle branch block (LBBB) on electrocardiogram (Chronic) Obesity (BMI 30-39.9) (Chronic) Family History Other Family history non-contributory Social History Preferred Language: Czech Communication Ability: Effective 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 Beliefs That Will Affect Care: None marital status: / Current Living Situation: Alone Feels Safe at Home: Yes Smoking Status: Current every day smoker Tobacco Type: cigarettes ; Cigarettes Per Day: 20 ; Second Hand Exposure: No ; Hx Alcohol Use: No Hx Substance Use: No Review of Systems A total of 10 systems reviewed and were otherwise negative Physical Exam Vital Signs Vital Signs - 24 hr 03/19/20 17:21 03/19/20 17:58 Temperature 37.1 C Temperature Source Oral Pulse Rate 90 Respiratory Rate 22 Blood Pressure 154/77 H Blood Pressure Mean 102 Blood Pressure Position Sitting Pulse Oximetry 95 Oxygen Delivery Method Room Air Room Air Sepsis Recent Fever Within 48 Hours No Sepsis New/Unexplained Change in Mental Status No Sepsis Action Taken by Nursing No Action Required CONSTITUTIONAL/VITAL SIGNS: Reviewed / noted above. GENERAL: Non-toxic in appearance. INTEGUMENTARY: Warm, dry, and [place]. HEAD: Normocephalic. EYES: without scleral icterus or trauma. ENT/OROPHARYNX: clear and moist. LYMPHADENOPATHY/NECK: Is supple without lymphadenopathy or meningismus. RESPIRATORY: Lungs diminished in the bilateral bases. CARDIOVASCULAR: Regular rate and rhythm. GI/ABDOMEN: Soft and nontender. No organomegaly or pulsatile mass. No rebound or guarding. Normal bowel sounds. Scrotal edema. EXTREMITIES: Warm and well perfused. Bilateral pitting lower extremity edema. BACK: No CVA tenderness. NEUROLOGICAL: Intact without focal deficits. PSYCHIATRIC: normal affect. MUSCULOSKELETAL: Normally developed with good muscle tone. TRIAGE NURSING DOCUMENTATION REVIEWED. Course Administered Medications Discontinued Medications Furosemide (Lasix) 60 mg IV NOW STA Stop: 03/19/20 19:01 Last Admin: 03/19/20 19:11 Dose: 60 mg Documented by: [id number] Medical Decision Making Differential Diagnosis The differential was considered includes acute myocardial infarction, acute coronary syndrome, myocarditis, pericarditis, pericardial effusions /tamponad, esophageal perforation, pulmonary embolism, pneumonia, pneumothorax, cardiomyopathy, congestive heart, anemia , COPD/asthma exacerbation. Medical Records Attestation: I reviewed the patient's medical records. Home Medications Current Medication List: was personally reviewed by me Laboratory Data Attestation: I reviewed the patient's lab results. Result diagrams: 03/19/20 17:50 03/19/20 17:50 Lab Results 03/19/20 03/19/20 03/19/20 Range/Units 17:50 17:50 17:50 WBC 8.12 (4.8-10.8) K/uL RBC 4.78 (4.7-6.1) M/uL Hgb 14.5 (14.0-18.0) g/dL Hct 45.4 (42-52) % MCV 95.0 (80-100) fL MCH 30.3 (25-34) pg MCHC 31.9 L (32-36) g/dL RDW Std Deviation 47.7 H (36.4-46.3) fL RDW Coeff of Shellie 13.8 (11.5-14.5) % Plt Count 347 (130-400) K/uL MPV 10.2 (7.4-10.4) fL Immature Gran % (Auto) 0.2 % Neut % (Auto) 72.5 % Lymph % (Auto) 15.9 % [place] % (Auto) 9.9 % Eos % (Auto) 1.4 % Baso % (Auto) 0.1 % Neut # (Auto) 5.89 (1.4-6.5) K/uL Lymph # (Auto) 1.29 (1.2-3.4) K/uL [place] # (Auto) 0.80 H (0.11-0.59) K/uL Eos # (Auto) 0.11 (0-0.5) K/uL Baso # (Auto) 0.01 (0-0.2) K/uL Immature Gran # (Auto) 0.02 (0.00-0.02) K/uL PT 11.8 (9.0-12.0) Seconds INR 1.1 (0.9-1.1) APTT 37.3 H (21.0-31.0) Seconds PTT Ratio 1.3 Sodium 140 (136-145) mmol/L Potassium 3.5 (3.5-5.1) mmol/L Chloride 102 (98-107) mmol/L Carbon Dioxide 32 (21-32) mmol/L Anion Gap 6.0 (3-11) BUN 11 (7-18) mg/dl Creatinine 0.72 (0.6-1.4) mg/dl Est Cr Clr Drug Dosing Not Reportable Est GFR ( Amer) 106.5 Est GFR (Non-Af Amer) 91.9 BUN/Creatinine Ratio 14.6 (10-20) Glucose 191 H (70-99) mg/dl Calcium 8.5 (8.5-10.1) mg/dl Total Bilirubin 0.7 (0.2-1) mg/dl AST 10 L (15-37) U/L ALT 17 (12-78) U/L Alkaline Phosphatase 143 H (45-117) U/L Troponin I 0.017 (0-0.045) ng/ml NT-Pro-B Natriuret Pep 9275 H (0-900) pg/ml Total Protein 6.8 (6.4-8.2) gm/dl Albumin 3.1 L (3.4-5.0) gm/dl Globulin 3.7 (2.5-4.0) gm/dl Albumin/Globulin Ratio 0.8 L (0.9-2) Blood Pressure Blood Pressure Findings: Elevated blood pressure Blood Pressure Disposition: further management by hospitalist ROMARIO Morales This is a 74-year-old male who presents to the ED with a chief complaint of bilateral leg swelling as well as shortness of breath that is been increasing over the past week or more. The patient states that he has had similar symptoms back in June. He states that his shortness of breath is worse with exertion. He states that he has had to sleep sitting up at night for the past week bec ause of his symptoms. His symptoms are worse when he lies down. He also states that he has been taking diuretics but he has not yet been urinating as much as usual. He states that he is only urinating about 2 or 3 times a day. The patient's blood pressure is somewhat elevated. His physical exam reveals diminished breath sounds bilaterally as well as pitting edema in the lower extremities and lower half of the body. The patient's chest x-ray reveals findings suggesting congestive heart failure. His BNP is elevated. Troponin was negative. CBC is normal. Metabolic panel was otherwise unremarkable. EKG shows A. fib which appears to be new onset with a chronic left bundle branch block. The patient was treated with IV Lasix. He was also started on IV heparin. He was told the results. He is going to be seen by the hospitalist for further inpatient evaluation and care. Impression & Plan CHF (congestive heart failure), New onset a-fib Discharge Plan Visit Data Chief Complaint: Shortness of Breath/Dyspnea Stated Complaint: FLUID BUILDUP,DIFFICULTY BREATHING ED Provider: Declan Claros Discharge Problem: CHF (congestive heart failure), New onset a-fib Patient Disposition: Being Evaluated by Hospitalist Forms Stand Alone Forms: [facility], Virtual Emergency Department, Important Visit Information Prescriptions Prescriptions: No Action atorvastatin 20 mg tablet 40 mg PO DAILY RF: 0 escitalopram oxalate 20 mg tablet 20 mg PO DAILY RF: 0 prednisone 20 mg Tablet 20 mg PO UD PRN (Reason: Shortness Of Breath & Wheezing) RF: 0 aspirin 81 mg Tablet,Delayed Release (Dr/Ec) 81 mg PO DAILY RF: 0 calcipotriene [Dovonex] 0.005 % Cream 1 applic TOPICAL BID RF: 0 nitroglycerin 400 mcg/spray [place],Non-Aerosol 1 spry Sublingual UD PRN (Reason: Chest Pain) RF: 0 loratadine [Claritin] 10 mg Tablet 10 mg PO DAILY PRN (Reason: Allergy Symptoms) RF: 0 albuterol sulfate [Ventolin HFA] 90 mcg/actuation HFA aerosol inhaler 2 puff inhalation Q4H PRN (Reason: Shortness Of Breath Or Wheezing) RF: 0 fluticasone propionate 50 mcg/actuation spray,suspension 2 spray intranasal DAILY RF: 0 trazodone 50 mg tablet 50 mg PO HS RF: 0 albuterol sulfate 2.5 mg /3 mL (0.083 %) Solution For Nebulization 2.5 mg INHALATION QID RF: 0 Dulera 100-5 mcg/actuation HFA aerosol inhaler 2 puff inhalation BID RF: 0 doxepin 3 mg Tablet 3 mg PO HS RF: 0 metformin 500 mg tablet extended release 24hr 500 mg PO DAILY Qty: 30 RF: 0 (DME) insulin admin supplies insulin pen See Dose Instructions .ROUTE .MEDSUPPLY Qty: 1 RF: 0 Referrals Referrals: Viet Holly DO [Primary Care Provider] - Discharge Problem: CHF (congestive heart failure) Qualifiers: Heart failure type: combined systolic and diastolic Heart failure chronicity: acute on chronic Qualified Code(s): I50.43 - Acute on chronic combined systolic (congestive) and diastolic (congestive) heart failure
[2020-03-19] MEDS ORDERED: FUROSEMIDE 40 MG/4 ML VIAL IV STA (19:00)
[2020-03-19] MEDS ORDERED: Heparin IV Standard *NO* Bolus IV ONE (19:23)
[2020-03-19] MEDS: HEPARIN SODIUM/DEXTROSE 25,000 UNITS/500 ML BAG IV SCH (20:26)
[2020-03-19] MEDS ORDERED: NITROGLYCERIN SL 0.4 MG/TAB TAB SL PRN (21:24)
[2020-03-19] MEDS ORDERED: ALBUTEROL HFA 8 GM INHALER INH PRN (21:24)
[2020-03-19] MEDS ORDERED: ONDANSETRON INJ 2 MG/ML 2 ML VIAL IV PRN (21:24)
[2020-03-19] MEDS ORDERED: NITROGLYCERIN SL SPR 4.9 GM BTL SL PRN (21:24)
[2020-03-19] MEDS ORDERED: POLYETHYLENE (MIRALAX) 17 GM PACK PO PRN (21:24)
[2020-03-19] MEDS ORDERED: LORATADINE 10 MG TAB PO PRN (21:24)
[2020-03-19] MEDS ORDERED: ACETAMINOPHEN 325 MG TAB PO PRN (21:24)
[2020-03-19] MEDS ORDERED: GLUCAGON FOR INJ 1 MG VIAL IM PRN (21:45)
[2020-03-19] MEDS ORDERED: GLUCOSE 10 TABS/TUBE PO PRN (21:45)
[2020-03-19] MEDS ORDERED: DEXTROSE 50% 50 ML SYRINGE IV PRN (21:45)
[2020-03-19] MEDS ORDERED: CARBOHYDRATES FOR HYPOGLYCEMIA PO PRN (21:45)
[2020-03-19] MEDS ORDERED: GLUCOSE 40% GEL 15 GM TUBE PO PRN (21:45)
[2020-03-19] MEDS: TRAZODONE HCL 50 MG TAB PO SCH (22:22)
[2020-03-19] MEDS: SACUBITRIL-VALSARTAN 24-26 MG TAB PO SCH (22:22)
[2020-03-19] MEDS: INSULIN GLARGINE SOLOSTAR 100 UNITS/ML 3 ML PEN SQ SCH (22:23)
[2020-03-19] MEDS: INSULIN ASPART 100 UNITS/ML 3 ML PEN SC SCH (22:24)
--- NOTE | 2020-03-19 23:57 | History and Physical Report ---
DATE OF ADMISSION: 03/19/2020 CHIEF COMPLAINT: Shortness of breath. HISTORY OF PRESENT ILLNESS: This is a 74-year-old male with past medical history significant for type 2 diabetes, microalbuminuria diabetic nephropathy, hyperlipidemia, COPD, allergic rhinitis, paroxysmal atrial fibrillation, unstable angina, hypertension, left bundle branch block, left main coronary artery disease, CKD stage I, chronic diastolic CHF, obesity, tubular adenoma of colon, glaucoma, major depression, tobacco disorder, CAD, status post CABG, who lives alone, ambulates without any support. He comes because of progressive shortness of breath. He gets short of breath on exertion. He has also gained several pounds. He says his scrotum has become big and gaining weight; he could not quantify how much weight, but he says is gaining weight and he is having orthopnea, he could not sleep flat, which prompted him to come to the ER. Denies any chest pain, no cough, no fever, no chills, no nausea, no headache, no blurred vision, no earache, no sore throat. He has some runny nose from his allergies. No fevers, no abdominal pain. Normal bowel and bladder movements. No hematuria or burning micturition, no blood in stool or black stools. No rash. ALLERGIES: VELMA INHIBITORS. PAST MEDICAL HISTORY: As mentioned above. PAST SURGICAL HISTORY: CABG, colonoscopy, cataract surgery, cardiac catheterization and status post 2 stents placement, cholecystectomy. MEDICATIONS: The patient is on albuterol 2 puffs q.4 hours p.r.n., aspirin 81 mg p.o. daily, atorvastatin 80 mg p.o. daily, Dovonex application topical b.i.d., Plavix 75 mg p.o. daily, doxepin 3 mg p.o. at bedtime, Dulera 2 puffs inhalation b.i.d., Lexapro 20 mg p.o. daily, fenofibrate micronized 134 mg p.o. daily, Flonase 2 sprays intranasally daily, insulin glargine 25 units a.m. and 30 units p.m., isosorbide dinitrate 10 mg p.o. b.i.d., Claritin 10 mg p.o. daily p.r.n., metformin 500 mg p.o. daily, Toprol-XL 25 mg p.o. daily, nitroglycerin 1 spray sublingual p.r.n., prednisolone as directed, Entresto 1 tablet p.o. b.i.d., spironolactone 12.5 mg p.o. daily, torsemide 10 mg p.o. daily, trazodone 50 mg p.o. at bedtime. FAMILY HISTORY: Significant for mother had pancreatic cancer, diabetes, hypertension. Father had stroke, hypertension, diabetes. Daughter has thyroid disorder. SOCIAL HISTORY: , lives alone. Smokes 1.5 packs a day for the last 50 years, last cigarette was in 08/2017. No alcohol use, no drug use. REVIEW OF SYMPTOMS: As per HPI. Rest of the review of symptoms negative. PHYSICAL EXAMINATION: GENERAL: The patient is morbidly obese, not in acute distress. VITAL SIGNS: Temperature 37.1, pulse 77, respiratory rate 20s, blood pressure 129/69, oxygen 95% on room air. HEENT: No pallor, no icterus. Pupils equal, round, reactive to light. NECK: No JVD, no neck masses, no carotid bruits. CARDIOVASCULAR: S1, S2 heard, irregular rhythm, no murmur. RESPIRATORY SYSTEM: Normal AP diameter. No accessory muscle use. Mild bibasilar crackles. No wheezing. ABDOMEN: Soft, bowel sounds present, nontender. No distention. CENTRAL NERVOUS SYSTEM: Cranial nerves II-XII grossly intact. Nonfocal. EXTREMITIES: Bilateral lower extremity gross edema present with mild erythema changes. LABORATORY DATA: WBC 8.1, hemoglobin 14.5, hematocrit 45.4, platelets 347. PT 11.8, INR 1.1, APTT 37.3. Sodium 140, potassium 3.5, chloride 102, bicarbonate 32, BUN 11, creatinine 0.7, serum glucose 191, calcium 8.5, total bilirubin 0.7, AST 10, ALT 17, alkaline phosphatase 143, troponin I of 0.017. BNP 9275. Chest x-ray: Cardiomegaly with evidence of CHF, small left pleural effusion with left basilar consolidation. EKG: Atrial fibrillation, rate of 88, left bundle branch block. ASSESSMENT AND PLAN: This is a 74-year-old male who presents with worsening shortness of breath on exertion, weight gain and found to have congestive heart failure and also atrial fibrillation. 1. Wypiw-bd-gnrfpxc diastolic congestive heart failure and skcwm-wp-[id number] systolic congestive heart failure, last echocardiogram in 06/2019 showed grade 2 diastolic congestive heart failure and ejection fraction of 40%-45%. We will hold his home diuretics. Received a dose of IV Lasix 60 mg in the Emergency Room. We will continue with Lasix 40 mg b.i.d. Daily intakes and outputs, strict daily weights. Follow echocardiogram. Monitor in telemetry. Consult cardiology in the morning for further recommendations for optimization of medical management. Continue Entresto and Toprol-XL and isosorbide dinitrate. 2. Atrial fibrillation, questionable new or seems to be history of paroxysmal atrial fibrillation as per the Epic. Rate is under control. Continue his Toprol-XL. Emergency Room started on IV heparin, which we will continue. Follow echocardiogram. Await cardiology input. 3. Coronary artery disease, status post coronary artery bypass graft. Continue his home aspirin, Plavix, statin, Toprol-XL, and isosorbide dinitrate. Currently, he is stable. 4. Diabetes. Hold metformin. Continue his home insulin glargine and place him on insulin sliding scale. Follow the blood sugars, follow hemoglobin A1c levels. 5. Hyperlipidemia. Continue statin and fenofibrate. 6. History of chronic obstructive pulmonary disease. Continues home inhalers, currently stable. 7. Obesity, needs counseling. 8. Depression. Continue his Lexapro. 9. Deep vein thrombosis prophylaxis, on IV heparin. DISPOSITION: Monitor in the tele floor. Expect to discharge home and follow with his family doctor. Level 1 full code. Social service to help with discharge planning. RIMMA
[2020-03-20 02:36] LABS: Basophils # (auto) 0.01 K/uL (0-0.2); Basophils % (auto) 0.1 %; Eosinophils # (auto) 0.12 K/uL (0-0.5); Eosinophils % (auto) 1.2 %; Hematocrit (blood only) 43.3 % (42-52); Hemoglobin 14.2 g/dL (14.0-18.0); Immature Granulocytes # (auto) 0.01 K/uL (0.00-0.02); Immature Granulocytes % (auto) 0.1 %; Lymphocytes # (auto) 1.94 K/uL (1.2-3.4); Lymphocytes % (auto) 20.1 %; Mean Corpuscular Hemoglobin 30.5 pg (25-34); Mean Corpuscular Hgb Conc 32.8 g/dL (32-36); Mean Corpuscular Volume 93.1 fL (80-100); Mean Platelet Volume 9.8 fL (7.4-10.4); Monocytes # (auto) 0.94 K/uL (0.11-0.59); Monocytes % (auto) 9.7 %; Neutrophils # (auto) 6.64 K/uL (1.4-6.5); Neutrophils % (auto) 68.8 %; Platelet Count 306 K/uL (130-400); RDW Coefficient of Variation 13.6 % (11.5-14.5); RDW Standard Deviation 46.3 fL (36.4-46.3); Red Blood Count 4.65 M/uL (4.7-6.1); White Blood Count 9.66 K/uL (4.8-10.8)
[2020-03-20 02:56] LABS: BUN Creatinine Ratio 15.2 (10-20); Calcium 8.4 mg/dl (8.5-10.1); Est GFR (African American) 105.3; Est GFR (Non-African American) 90.9; Magnesium 1.3 mg/dl (1.8-2.4); Potassium 3.5 mmol/L (3.5-5.1)
[2020-03-20 02:59] LABS: Partial Thromboplastin Ratio 2.1
[2020-03-20 03:00] LABS: Troponin I 0.022 ng/ml (0-0.045)
[2020-03-20 03:08] LABS: Partial Thromboplastin Time 58.4 Seconds (21.0-31.0)
[2020-03-20 06:06] LABS: Estimated Average Glucose 192 mg/dl; Hemoglobin A1C 8.3 % (4.5-5.6)
[2020-03-20] MEDS: FUROSEMIDE 40 MG in SYRINGE 0 ML IV SCH ×2 (07:59→16:52)
[2020-03-20] MEDS ORDERED: PERFLUTREN LIPID MICROSPHERE (DEFINITY) IV ONE (08:00)
[2020-03-20] MEDS: ESCITALOPRAM OXALATE 20 MG TAB PO SCH (08:01)
[2020-03-20] MEDS: ISOSORBIDE DINITRATE 10 MG TAB PO SCH ×2 (08:01→11:56)
[2020-03-20] MEDS: FENOFIBRATE NANOCRYSTALLIZED 145 MG TABLET PO SCH (08:01)
[2020-03-20] MEDS: METOPROLOL SUCC 25MG EXT REL TAB PO SCH (08:01)
[2020-03-20] MEDS: CLOPIDOGREL BISULFATE 75 MG TAB PO SCH (08:01)
[2020-03-20] MEDS: SPIRONOLACTONE 12.5 MG TAB PO SCH (08:01)
[2020-03-20] MEDS: SACUBITRIL-VALSARTAN 24-26 MG TAB PO SCH ×2 (08:01→21:06)
[2020-03-20] MEDS: ASPIRIN 81 MG ECTAB PO SCH (08:01)
[2020-03-20] MEDS: INSULIN GLARGINE SOLOSTAR 100 UNITS/ML 3 ML PEN SQ SCH ×2 (08:02→21:07)
[2020-03-20] MEDS: ATORVASTATIN 40 MG TAB PO SCH (08:02)
[2020-03-20] MEDS: MAGNESIUM SULFATE / D5W 1 GM/100 ML BAG IV SCH ×2 (08:04→09:59)
[2020-03-20] MEDS: INSULIN ASPART 100 UNITS/ML 3 ML PEN SC SCH ×4 (08:08→21:08)
[2020-03-20] MEDS: FLUTICASONE/VILANTEROL 100/25MCG 14 PUFFS/INHALER INH SCH (08:34)
[2020-03-20] MEDS: FLUTICASONE PROPIONATE NA SPR 16 GM BTL SCH (08:35)
[2020-03-20] MEDS ORDERED: FUROSEMIDE 40 MG/4 ML VIAL IV SCH (09:00)
--- NOTE | 2020-03-20 10:14 | Cardiology Consultation ---
Date of Consultation March 20, 2020 Assessment & Plan (1) Acute on chronic congestive heart failure: Patient presents with gradual decompensated biventricular heart failure right greater than left with increasing lower extremity edema abdominal bloating and scrotal edema. No acute precipitant. Patient per description compliant with medications. Now responding to IV diuretics Review of EKGs and presentation reveals sinus rhythm with first-degree AV block (no atrial fibrillation) Plan: Continue IV diuretics as ordered patient already responding to therapies with negative urinary outputs Continue prehospital medications with patient on good guideline directed CHF medical regimen including beta-mckayla, Entresto, spironolactone We will supplement potassium this morning Continue heparin for 24 hours then discontinue no noted arrhythmias or change in status Suspect patient may ultimately benefit from biventricular pacer defibrillator (2) Ischemic cardiomyopathy: EF approximately 35% on current study (3) Left bundle branch block: (4) Status post coronary artery bypass grafting: (5) COPD (chronic obstructive pulmonary disease): History of Present Illness Reason for Consultation: Decompensated biventricular heart failure right greater than left Requesting Physician: Dr. Rico Attending Physician: Nate Rico MD History of Present Illness Patient is a 74-year-old male with complex history as per outpatient records 1.Atherosclerotic coronary disease status post prior coronary stenting of the LAD in 1998, right coronary artery in 2005. 2.Crescendo angina in a setting of paroxysmal atrial fibrillation, acute emotional stressors, June 2017, culminating in cardiac catheterization with left main coronary disease and subsequent coronary bypass grafting, receiving YAN graft to LAD, saphenous vein graft to the ramus, saphenous vein graft to the circumflex on 06/19/2017. 3.Hypertension. 4.Left bundle-branch block. 5.Moderate left ventricular dysfunction 6.Chronic obstructive lung disease, tobacco use 7. Hospitalization July 08, 2019 with acute decompensated systolic and diastolic heart failure Patient presents this admission noting several week history of gradually increasing lower extremity edema increasing dyspnea and dyspnea on exertion. Notes symptoms persisted and worsened to the point of significant scrotal edema and abdominal bloating resulting in ER presentation. Patient not aware of any tachypalpitations, chest pains, syncope, near syncope. No fevers chills or productive cough. Does not feel diuretics have been working as well as they have in the past. Treated in February for exacerbation of COPD with transient prednisone course. Appetite generally good following sodium restrictions weight up just slightly. No bleeding difficulties melena medication dysuria hematuria. Allergies Allergy/AdvReac Type Severity Reaction Status Date / Time VELMA Inhibitors Allergy Unknown unknown Verified 03/19/20 20:00 Home Medications Home Medications Medication Instructions Recorded Confirmed Type aspirin 81 mg PO DAILY 09/05/18 03/19/20 History calcipotriene [Dovonex] 1 applic TOPICAL BID 09/05/18 03/19/20 History escitalopram oxalate 20 mg PO DAILY 09/05/18 03/19/20 History loratadine [Claritin] 10 mg PO DAILY PRN 09/05/18 03/19/20 History nitroglycerin 1 spry SUBLINGUAL UD PRN 09/05/18 03/19/20 History prednisone 20 mg PO UD PRN 09/05/18 03/19/20 History Dulera 2 puff INHALATION BID 07/08/19 03/19/20 History albuterol sulfate [Ventolin HFA] 2 puff INHALATION Q4H PRN 07/08/19 03/19/20 History doxepin 3 mg PO HS 07/08/19 03/19/20 History trazodone 50 mg PO HS 07/08/19 03/19/20 History insulin admin supplies #1 ea 07/12/19 03/19/20 Rx metformin 500 mg PO DAILY #30 tab 07/12/19 03/19/20 Rx atorvastatin 80 mg PO DAILY 03/19/20 03/19/20 History clopidogrel [Plavix] 75 mg PO DAILY 03/19/20 03/19/20 History fenofibrate micronized 134 mg PO DAILY 03/19/20 03/19/20 History fluticasone propionate [Flonase 2 spray INTRANASAL DAILY 03/19/20 03/19/20 History Allergy Relief] insulin glargine [Basaglar KwikPen 25 unit SUBCUT QAM 03/19/20 03/19/20 History U-100 Insulin] insulin glargine [Basaglar KwikPen 30 unit SUBCUT HS 03/19/20 03/19/20 History U-100 Insulin] isosorbide dinitrate 10 mg PO BID 03/19/20 03/19/20 History metoprolol succinate [Toprol XL] 25 mg PO DAILY 03/19/20 03/19/20 History mometasone-formoterol [Dulera] 2 puff INHALATION BID 03/19/20 03/19/20 History sacubitril-valsartan [Entresto] 1 tab PO BID 03/19/20 03/19/20 History spironolactone [Aldactone] 12.5 mg PO DAILY 03/19/20 03/19/20 History torsemide 10 mg PO DAILY 03/19/20 03/19/20 History Patient History Medical History Anxiety (Chronic) CAD (coronary artery disease), teller coronary artery (Chronic) "IN 1998 followed by PCI, IN 2005 followed by PCI, non-STEMI 2016 followed by CABG" COPD (chronic obstructive pulmonary disease) (Chronic) Depression (Chronic) Left bundle branch block (LBBB) on electrocardiogram (Chronic) Obesity (BMI 30-39.9) (Chronic) Family History Other Family history non-contributory Social History Preferred Language: Amharic Communication Ability: Effective Shoe Sprayer Required: No Beliefs That Will Affect Care: None marital status: / Current Living Situation: Alone Other Information That Helps Us Care for You: No Feels Safe at Home: Yes Safety Concerns: Feels Safe At This Time Smoking Status: Current every day smoker Tobacco Type: cigarettes ; Cigarettes Per Day: 20 ; Do You Dip or Chew Tobacco: No ; Second Hand Exposure: No ; Hx Alcohol Use: No Hx Substance Use: No Review of Systems Review of Systems: All systems reviewed & are unremarkable except as noted in HPI & below Physical Exam Constitutional: WD/WN, vitals as above + obese; no acute distress Eyes: PERRL, conjunctivae normal, anicteric sclerae ENMT: external ear and nose normal, oropharynx normal Neck: trachea midline, no thyromegaly Respiratory: Auscultation: + diminished lung sounds and + rales Cardiovascular: Rate/Rhythm: regular rate and regular rhythm Heart Sounds: normal S1 and normal S2; no murmur Palpation: normal PMI Vessels: + JVD, normal carotid upstroke and radial pulses present; no carotid bruit Extremities: + edema (2-3+ extending to the thighs and lower abdomen with scrotal edema) Gastrointestinal (Abdomen): normal bowel sounds, soft, nontender, no hepatosplenomegaly Musculoskeletal: no cyanosis or clubbing, extremities motor strength 5/5 Skin: no rashes, warm and dry Neurologic: PERRL, EOMI, accommodation nl, no face palsy, no dysarthria Psychiatric: A+Ox3, euthymic affect Results & Data ([facility]) Vital Signs (Past 12 Hours) Vital Signs Temp Pulse Resp BP BP Pulse Ox 03/20/20 07:03 36.6 C 68 20 138/64 93 03/20/20 04:15 36.8 C 74 19 148/75 H 94 03/19/20 23:42 36.6 C 86 18 138/54 L 91 Laboratory Results Laboratory Results - last 24 hr 03/19/20 03/19/20 03/19/20 17:50 17:50 17:50 WBC 8.12 RBC 4.78 Hgb 14.5 Hct 45.4 MCV 95.0 MCH 30.3 MCHC 31.9 L RDW Std Deviation 47.7 H RDW Coeff of Shellie 13.8 Plt Count 347 MPV 10.2 Immature Gran % (Auto) 0.2 Neut % (Auto) 72.5 Lymph % (Auto) 15.9 [place] % (Auto) 9.9 Eos % (Auto) 1.4 Baso % (Auto) 0.1 Neut # (Auto) 5.89 Lymph # (Auto) 1.29 [place] # (Auto) 0.80 H Eos # (Auto) 0.11 Baso # (Auto) 0.01 Immature Gran # (Auto) 0.02 PT 11.8 INR 1.1 APTT 37.3 H PTT Ratio 1.3 Sodium 140 Potassium 3.5 Chloride 102 Carbon Dioxide 32 Anion Gap 6.0 BUN 11 Creatinine 0.72 Est Cr Clr Drug Dosing Not Reportable Est GFR ( Amer) 106.5 Est GFR (Non-Af Amer) 91.9 BUN/Creatinine Ratio 14.6 Glucose 191 H POC Glucose Estimat Average Glucose Hemoglobin A1c Calcium 8.5 Magnesium Total Bilirubin 0.7 AST 10 L ALT 17 Alkaline Phosphatase 143 H Troponin I 0.017 NT-Pro-B Natriuret Pep 9275 H Total Protein 6.8 Albumin 3.1 L Globulin 3.7 Albumin/Globulin Ratio 0.8 L 03/19/20 03/19/20 03/20/20 21:45 22:15 02:20 WBC RBC Hgb Hct MCV MCH MCHC RDW Std Deviation RDW Coeff of Shellie Plt Count MPV Immature Gran % (Auto) Neut % (Auto) Lymph % (Auto) [place] % (Auto) Eos % (Auto) Baso % (Auto) Neut # (Auto) Lymph # (Auto) [place] # (Auto) Eos # (Auto) Baso # (Auto) Immature Gran # (Auto) PT INR APTT 58.4 H* PTT Ratio 2.1 Sodium Potassium Chloride Carbon Dioxide Anion Gap BUN Creatinine Est Cr Clr Drug Dosing Est GFR ( Amer) Est GFR (Non-Af Amer) BUN/Creatinine Ratio Glucose POC Glucose 206 H Estimat Average Glucose Hemoglobin A1c Calcium Magnesium Total Bilirubin AST ALT Alkaline Phosphatase Troponin I 0.017 NT-Pro-B Natriuret Pep Total Protein Albumin Globulin Albumin/Globulin Ratio 03/20/20 03/20/20 03/20/20 02:20 02:20 02:20 WBC 9.66 RBC 4.65 L Hgb 14.2 Hct 43.3 MCV 93.1 MCH 30.5 MCHC 32.8 RDW Std Deviation 46.3 RDW Coeff of Shellie 13.6 Plt Count 306 MPV 9.8 Immature Gran % (Auto) 0.1 Neut % (Auto) 68.8 Lymph % (Auto) 20.1 [place] % (Auto) 9.7 Eos % (Auto) 1.2 Baso % (Auto) 0.1 Neut # (Auto) 6.64 H Lymph # (Auto) 1.94 [place] # (Auto) 0.94 H Eos # (Auto) 0.12 Baso # (Auto) 0.01 Immature Gran # (Auto) 0.01 PT INR APTT PTT Ratio Sodium 144 Potassium 3.5 Chloride 104 Carbon Dioxide 33 H Anion Gap 7.0 BUN 11 Creatinine 0.74 Est Cr Clr Drug Dosing 107.0 Est GFR ( Amer) 105.3 Est GFR (Non-Af Amer) 90.9 BUN/Creatinine Ratio 15.2 Glucose 133 H POC Glucose Estimat Average Glucose 192 Hemoglobin A1c 8.3 H Calcium 8.4 L Magnesium 1.3 L Total Bilirubin AST ALT Alkaline Phosphatase Troponin I 0.022 NT-Pro-B Natriuret Pep Total Protein Albumin Globulin Albumin/Globulin Ratio 03/20/20 07:22 WBC RBC Hgb Hct MCV MCH MCHC RDW Std Deviation RDW Coeff of Shellie Plt Count MPV Immature Gran % (Auto) Neut % (Auto) Lymph % (Auto) [place] % (Auto) Eos % (Auto) Baso % (Auto) Neut # (Auto) Lymph # (Auto) [place] # (Auto) Eos # (Auto) Baso # (Auto) Immature Gran # (Auto) PT INR APTT PTT Ratio Sodium Potassium Chloride Carbon Dioxide Anion Gap BUN Creatinine Est Cr Clr Drug Dosing Est GFR ( Amer) Est GFR (Non-Af Amer) BUN/Creatinine Ratio Glucose POC Glucose 103 H Estimat Average Glucose Hemoglobin A1c Calcium Magnesium Total Bilirubin AST ALT Alkaline Phosphatase Troponin I NT-Pro-B Natriuret Pep Total Protein Albumin Globulin Albumin/Globulin Ratio Diagnostic Findings Preliminary echocardiogram demonstrates very technically limited study with LVH and marked septal dyssynergy EF 35 to 40% ECG Additional Comments: EKG: Sinus rhythm with first-degree AV block, atrial and ventricular ectopic beats marked bundle branch block
[2020-03-20] MEDS ORDERED: POTASSIUM CHLORIDE 20 MEQ TABCR PO ONE (10:31)
[2020-03-20] MEDS: HEPARIN SODIUM/DEXTROSE 25,000 UNITS/500 ML BAG IV SCH (12:00)
--- NOTE | 2020-03-20 13:13 | Hospitalist Progress Note ---
Date of Service March 20, 2020 Assessment & Plan (1) Acute on chronic congestive heart failure: Presented with shortness of breath and weight gain Noted to have acute on chronic CHF Has been diuresing enough with intravenous Lasix and will continue Echo of the heart showed-normal LV size with mild concentric LV hypertrophy and septal motion is consistent with conduction abnormality. There is a moderate sized inferior inferolateral wall motion abnormality with moderate hypokinesis of the segments. EF of 35 to 40%. Diastolic dysfunction grade 3 consistent with marked congestive heart failure. Aortic valve sclerosis without stenosis. The inferior vena cava is mildly dilated Appreciate cardiology input and recommendation LBBB Noted to have first-degree AV block in EKG Otherwise normal sinus rhythm No atrial fibrillation Present on Admission?: Yes (2) Ischemic cardiomyopathy: ECHO::Moderate sized inferior, inferolateral wall motion abnormality with moderate hypokinesis of the segments EF of 35 to 40% (3) COPD (chronic obstructive pulmonary disease): History of COPD Does not have any acute exacerbation at this time (4) CAD (coronary artery disease), [place] coronary artery: No acute cardiac symptoms except CHF (5) Diabetes mellitus, type 2: Hold metformin for now SSI DVT prophylaxis Has been on IV heparin which should be continued for 24 hours Prophylactic heparin following that Admission and Anticipated Discharge Date Admission Date: March 19, 2020 Subjective The patient was seen and examined in telemetry unit He was admitted yesterday with increasing shortness of breath and weight gain with history of CAD and diastolic heart failure He has been diuresing well with intravenous Lasix and feels a lot better this morning Denies any chest pain and/or palpitation Review of Systems Review of Systems: All systems reviewed and are unremarkable except as noted below Constitutional: + weakness and + weight gain Respiratory: no cough and no dyspnea Cardiovascular: no chest pain and no palpitations Physical Exam Physical Exam: Sitting at the edge of the bed without any acute symptoms Constitutional: well developed, well nourished and + obese; no acute distress and not ill appearing Eyes: PERRL, conjunctivae normal, anicteric sclerae ENMT: external ear and nose normal, oropharynx normal Neck: trachea midline, no thyromegaly Respiratory: normal respiratory effort; no respiratory distress Auscultation: + diminished lung sounds and + crackles (Minimal crackles at the bases) Cardiovascular: Rate/Rhythm: regular rate and regular rhythm Heart Sounds: no murmur Gastrointestinal (Abdomen): Inspection/Auscultation: abdomen normal to inspection; abdomen not distended Percussion/Palpation: abdomen soft; abdomen nontender Musculoskeletal: No acute arthritis involving any joints Neurologic: moves all extremities Alert, awake and oriented x3 Results & Data Results & Data ([facility]) Vital Signs (Past 12 Hours) Vital Signs Temp Pulse Resp BP Pulse Ox 03/20/20 11:49 36.7 C 67 20 150/65 H 93 03/20/20 07:03 36.6 C 68 20 138/64 93 03/20/20 04:15 36.8 C 74 19 148/75 H 94 Laboratory Results Short CBC 03/19/20 03/20/20 Range/Units 17:50 02:20 WBC 8.12 9.66 (4.8-10.8) K/uL Hgb 14.5 14.2 (14.0-18.0) g/dL Hct 45.4 43.3 (42-52) % Plt Count 347 306 (130-400) K/uL BMP 03/19/20 03/20/20 17:50 02:20 Sodium 140 144 Potassium 3.5 3.5 Chloride 102 104 Carbon Dioxide 32 33 H BUN 11 11 Creatinine 0.72 0.74 Glucose 191 H 133 H Calcium 8.5 8.4 L Cardiac Enzymes 03/19/20 03/19/20 03/20/20 Range/Units 17:50 22:15 02:20 Troponin I 0.017 0.017 0.022 (0-0.045) ng/ml Liver Function 03/19/20 Range/Units 17:50 Total Bilirubin 0.7 (0.2-1) mg/dl AST 10 L (15-37) U/L ALT 17 (12-78) U/L Alkaline Phosphatase 143 H (45-117) U/L Albumin 3.1 L (3.4-5.0) gm/dl Medications Administered Current Inpatient Medications Acetaminophen (Tylenol) 650 mg PO Q4H PRN PRN Reason: Pain or Fever Stop: 04/18/20 21:23 Albuterol (Ventolin Hfa) 2 puffs INH Q4H PRN PRN Reason: Shortness Of Breath Or Wheezing Stop: 04/18/20 21:23 Aspirin (Ecotrin Ectab) 81 mg PO DAILY [facility] Stop: 08/09/20 08:59 Last Admin: 03/20/20 08:01 Dose: 81 mg Documented by: Atorvastatin Calcium (Lipitor) 80 mg PO DAILY [facility] Stop: 04/19/20 08:59 Last Admin: 03/20/20 08:02 Dose: 80 mg Documented by: Clopidogrel Bisulfate (Plavix) 75 mg PO DAILY [facility] Stop: 04/19/20 08:59 Last Admin: 03/20/20 08:01 Dose: 75 mg Documented by: Dextrose (Dextrose 50%) 25 - 50 ml IV UD PRN; Protocol PRN Reason: Hypoglycemia Protocol Stop: 04/18/20 21:44 Escitalopram Oxalate (Lexapro Tab) 20 mg PO DAILY [facility] Stop: 04/19/20 08:59 Last Admin: 03/20/20 08:01 Dose: 20 mg Documented by: Fenofibrate (Tricor) 145 mg PO DAILY [facility] Stop: 04/19/20 08:59 Last Admin: 03/20/20 08:01 Dose: 145 mg Documented by: Fluticasone Propionate (Flonase) 2 sprays NA DAILY [facility] Stop: 04/19/20 08:59 Last Admin: 03/20/20 08:35 Dose: Not Given Documented by: Fluticasone/Vilanterol (Breo Ellipta 100/25 Mcg Inh) 1 puffs INH DAILY [facility] Stop: 04/19/20 08:59 Last Admin: 03/20/20 08:34 Dose: Not Given Documented by: Glucagon (Glucagen) 1 mg IM UD PRN; Protocol PRN Reason: Hypoglycemia Protocol Stop: 04/18/20 21:44 Glucose (Glucose 40%) 15 - 30 gm PO UD PRN; Protocol PRN Reason: Hypoglycemia Protocol Stop: 04/18/20 21:44 Glucose (Dex4 Glucose) 4 - 8 tabs PO UD PRN; Protocol PRN Reason: Hypoglycemia Protocol Stop: 04/18/20 21:44 Heparin Sodium/Dextrose (Heparin Sodium/Dextrose) 25,000 units in 500 mls @ 32 mls/hr IV .[id number] [facility]; Protocol Stop: 04/18/20 19:29 Last Admin: 03/20/20 12:00 Dose: 1,600 units/hr, 32 mls/hr Documented by: Furosemide 40 mg/ Syringe 4 mls @ 4 mls/min IV [id number] [facility] Stop: 04/19/20 08:59 Last Admin: 03/20/20 07:59 Dose: 4 mls/min Documented by: Insulin Aspart (Novolog Flexpen) 0 units SC ACHS [facility] Stop: 04/18/20 22:59 Last Admin: 03/20/20 12:00 Dose: 9 units Documented by: Insulin Glargine (Lantus Solostar Pen) 25 units SQ QAM [facility] Stop: 04/19/20 08:59 Last Admin: 03/20/20 08:02 Dose: 25 units Documented by: Insulin Glargine (Lantus Solostar Pen) 30 units SQ HS [facility] Stop: 04/18/20 22:59 Last Admin: 03/19/20 22:23 Dose: 30 units Documented by: Isosorbide Dinitrate (Isordil) 10 mg PO BID@0700,1200 [facility] Stop: 04/19/20 06:59 Last Admin: 03/20/20 11:56 Dose: 10 mg Documented by: Loratadine (Claritin) 10 mg PO DAILY PRN PRN Reason: Allergy Symptoms Stop: 04/18/20 21:23 Metoprolol Succinate (Toprol Xl) 25 mg PO DAILY [facility] Stop: 04/19/20 08:59 Last Admin: 03/20/20 08:01 Dose: 25 mg Documented by: Poweraneous (Order Awaiting Action) 1 ea N/A QS [facility] Stop: 04/19/20 00:00 Last Admin: 03/20/20 08:03 Dose: Not Given Documented by: Grace (Order Awaiting Action) 1 ea N/A QS [facility] Stop: 04/19/20 00:00 Last Admin: 03/20/20 08:03 Dose: Not Given Documented by: Rohinicellaneous (Carbohydrates For Hypoglycemia) 15 - 30 gm PO UD PRN PRN Reason: Hypoglycemia Treatment Stop: 04/18/20 21:44 Nitroglycerin (Nitrostat) 0.4 mg SL UD PRN PRN Reason: Chest Pain Stop: 04/18/20 21:23 Ondansetron HCl (Zofran) 4 mg IV Q6H PRN PRN Reason: Nausea Stop: 04/18/20 21:23 Polyethylene Glycol (Miralax Powder Packet) 17 gm PO DAILY PRN PRN Reason: Constipation Stop: 04/18/20 21:23 Sacubitril/Valsartan (Entresto 24/26mg) 1 tab PO BID [facility] Stop: 04/18/20 21:59 Last Admin: 03/20/20 08:01 Dose: 1 tab Documented by: Spironolactone (Aldactone) 12.5 mg PO DAILY [facility] Stop: 04/19/20 08:59 Last Admin: 03/20/20 08:01 Dose: 12.5 mg Documented by: Trazodone HCl (Desyrel) 50 mg PO HS [facility] Stop: 04/18/20 22:59 Last Admin: 03/19/20 22:22 Dose: Not Given Documented by: (1) CAD (coronary artery disease), [place] coronary artery [place] vs. transplanted heart: [place] heart Associated angina: angina presence unspecified Qualified Code(s): I25.10 - Atherosclerotic heart disease of [place] coronary artery without angina pectoris
[2020-03-20] MEDS: TRAZODONE HCL 50 MG TAB PO SCH (21:06)
[2020-03-21] MEDS: HEPARIN SODIUM/DEXTROSE 25,000 UNITS/500 ML BAG IV SCH (04:06)
[2020-03-21] MEDS: ISOSORBIDE DINITRATE 10 MG TAB PO SCH ×2 (06:09→11:58)
--- NOTE | 2020-03-21 07:00 | Electrocardiogram Report ---
Test Reason : Blood Pressure : / mmHG Vent. Rate : 088 BPM Atrial Rate : 084 BPM P-R Int : 000 ms QRS Dur : 154 ms QT Int : 440 ms P-R-T Axes : 000 -02 178 degrees QTc Int : 532 ms Sinus rhythm with 1st degree A-V block Premature atrial complexes Left bundle branch block Abnormal ECG When compared with ECG of 08-JUL-2019 19:01, Premature ventricular complexes are no longer Present Confirmed by Andrew Cruz ([id number]) on 03/21/2020 6:59:44 AM Referred By: REFERRED SELF Confirmed By:Andrew Cruz
--- NOTE | 2020-03-21 07:13 | Electrocardiogram Report ---
Test Reason : Blood Pressure : / mmHG Vent. Rate : 083 BPM Atrial Rate : 083 BPM P-R Int : 232 ms QRS Dur : 158 ms QT Int : 458 ms P-R-T Axes : -07 -07 176 degrees QTc Int : 538 ms Sinus rhythm with 1st degree A-V block Left bundle branch block Abnormal ECG When compared with ECG of 19-MAR-2020 17:41, No significant change Confirmed by Andrew Cruz ([id number]) on 03/21/2020 7:13:05 AM Referred By: REFERRED SELF Confirmed By:Andrew Cruz
[2020-03-21 07:58] LABS: Partial Thromboplastin Ratio 2.6
[2020-03-21 08:08] LABS: BUN Creatinine Ratio 18.5 (10-20); Calcium 8.2 mg/dl (8.5-10.1); Creatinine Clr Calc Pharmacy 113.2 ml/min; Est GFR (African American) 108.4; Est GFR (Non-African American) 93.5; Magnesium 1.7 mg/dl (1.8-2.4); Potassium 3.3 mmol/L (3.5-5.1)
[2020-03-21 08:09] LABS: Phosphorus 4.6 mg/dl (2.5-4.9)
[2020-03-21 08:11] LABS: Partial Thromboplastin Time 71.2 Seconds (21.0-31.0)
[2020-03-21] MEDS: FUROSEMIDE 40 MG in SYRINGE 0 ML IV SCH ×3 (08:27→21:31)
[2020-03-21] MEDS: INSULIN ASPART 100 UNITS/ML 3 ML PEN SC SCH ×4 (08:28→21:32)
[2020-03-21] MEDS: INSULIN GLARGINE SOLOSTAR 100 UNITS/ML 3 ML PEN SQ SCH ×2 (08:29→21:32)
[2020-03-21] MEDS: ASPIRIN 81 MG ECTAB PO SCH (08:31)
[2020-03-21] MEDS: SACUBITRIL-VALSARTAN 24-26 MG TAB PO SCH ×2 (08:31→21:31)
[2020-03-21] MEDS: CLOPIDOGREL BISULFATE 75 MG TAB PO SCH (08:31)
[2020-03-21] MEDS: SPIRONOLACTONE 12.5 MG TAB PO SCH (08:31)
[2020-03-21] MEDS: FENOFIBRATE NANOCRYSTALLIZED 145 MG TABLET PO SCH (08:31)
[2020-03-21] MEDS: METOPROLOL SUCC 25MG EXT REL TAB PO SCH (08:31)
[2020-03-21] MEDS: ESCITALOPRAM OXALATE 20 MG TAB PO SCH (08:31)
[2020-03-21] MEDS: ATORVASTATIN 40 MG TAB PO SCH (08:32)
[2020-03-21] MEDS: FLUTICASONE PROPIONATE NA SPR 16 GM BTL SCH (08:32)
[2020-03-21] MEDS: FLUTICASONE/VILANTEROL 100/25MCG 14 PUFFS/INHALER INH SCH (08:32)
--- NOTE | 2020-03-21 11:36 | Cardiology Progress Note ---
Date of Service March 21, 2020 Assessment & Plan (1) Acute on chronic congestive heart failure: Patient presents with gradual decompensated biventricular heart failure right greater than left with increasing lower extremity edema abdominal bloating and scrotal edema. No acute precipitant. Patient per description compliant with medications. Now responding to IV diuretics Review of EKGs and presentation reveals sinus rhythm with first-degree AV block (no atrial fibrillation) Plan: Continue prehospital medications with patient on good guideline directed CHF medical regimen including beta-mckayla, Entresto, spironolactone We will supplement potassium this morning Increase furosemide to 3 times daily dosing Heparin discontinued will need DVT prophylaxis ordered Suspect patient may ultimately benefit from biventricular pacer defibrillator, possibly this admission. Began preliminary discussions with patient (2) Ischemic cardiomyopathy: EF approximately 35% on current study (3) Left bundle branch block: (4) Status post coronary artery bypass grafting: (5) COPD (chronic obstructive pulmonary disease): Subjective Patient seen and examined, chart, medications, telemetry reviewed. Feels improved this morning with diuresis. Less scrotal edema. No chest pain or shortness of breath. Telemetry reveals sinus rhythm with marked first-degree AV block, left bundle branch block Physical Exam Constitutional: WD/WN, vitals as above + obese; no acute distress Eyes: PERRL, conjunctivae normal, anicteric sclerae ENMT: external ear and nose normal, oropharynx normal Neck: trachea midline, no thyromegaly Respiratory: Auscultation: + diminished lung sounds and + rales Cardiovascular: Rate/Rhythm: regular rate and regular rhythm Heart Sounds: normal S1 and normal S2; no murmur Palpation: normal PMI Vessels: + JVD, normal carotid upstroke and radial pulses present; no carotid bruit Extremities: + edema (2-3+ extending to the thighs and lower abdomen with less scrotal edema today) Gastrointestinal (Abdomen): normal bowel sounds, soft, nontender, no hepatosplenomegaly Musculoskeletal: no cyanosis or clubbing, extremities motor strength 5/5 Skin: no rashes, warm and dry Neurologic: PERRL, EOMI, accommodation nl, no face palsy, no dysarthria Psychiatric: A+Ox3, euthymic affect Results & Data Vital Signs (Past 12 Hours) Vital Signs Temp Pulse Pulse Resp BP Pulse Ox 03/21/20 07:37 36.5 C 66 19 151/67 H 90 07/11/20 04:08 36.6 C 83 18 110/54 L 90 03/21/20 00:28 48 L 16 97 03/21/20 00:14 36.5 C 66 24 130/64 90 03/20/20 23:45 90 Laboratory Results Laboratory Results - last 24 hr 03/20/20 03/20/20 03/21/20 16:26 20:46 06:47 APTT 71.2 H* PTT Ratio 2.6 Sodium Potassium Chloride Carbon Dioxide Anion Gap BUN Creatinine Est Cr Clr Drug Dosing Est GFR ( Amer) Est GFR (Non-Af Amer) BUN/Creatinine Ratio Glucose POC Glucose 132 H 125 H Calcium Phosphorus Magnesium 03/21/20 03/21/20 06:47 07:13 APTT PTT Ratio Sodium 140 Potassium 3.3 L Chloride 101 Carbon Dioxide 33 H Anion Gap 6.0 BUN 13 Creatinine 0.69 Est Cr Clr Drug Dosing 113.2 Est GFR ( Amer) 108.4 Est GFR (Non-Af Amer) 93.5 BUN/Creatinine Ratio 18.5 Glucose 142 H POC Glucose 134 H Calcium 8.2 L Phosphorus 4.6 Magnesium 1.7 L
--- NOTE | 2020-03-21 12:44 | Electrocardiogram Report ---
Test Reason : Blood Pressure : / mmHG Vent. Rate : 067 BPM Atrial Rate : 067 BPM P-R Int : 000 ms QRS Dur : 160 ms QT Int : 484 ms P-R-T Axes : 000 -09 190 degrees QTc Int : 511 ms Normal sinus rhythm with a first degree AVB and second degree [place] Type 1 block Left bundle branch block Abnormal ECG When compared with ECG of 20-MAR-2020 06:28, [place] type 1 Block is present Confirmed by Ralph Shabazz ([id number]) on 03/21/2020 12:44:48 PM Referred By: REFERRED SELF Confirmed By:Ralph Shabazz
[2020-03-21] MEDS: POTASSIUM CHLORIDE 20 MEQ TABCR PO SCH ×2 (14:43→21:31)
--- NOTE | 2020-03-21 15:58 | Hospitalist Progress Note ---
Date of Service March 21, 2020 Assessment & Plan (1) Acute on chronic congestive heart failure: Presented with shortness of breath and weight gain Noted to have acute on chronic CHF Has been diuresing enough with intravenous Lasix and will continue Echo of the heart showed-normal LV size with mild concentric LV hypertrophy and septal motion is consistent with conduction abnormality. There is a moderate sized inferior inferolateral wall motion abnormality with moderate hypokinesis of the segments. EF of 35 to 40%. Diastolic dysfunction grade 3 consistent with marked congestive heart failure. Aortic valve sclerosis without stenosis. The inferior vena cava is mildly dilated Appreciate cardiology input and recommendation Diuresing enough and the swelling is much improved Denies any shortness of breath at rest LBBB Noted to have first-degree AV block in EKG Otherwise normal sinus rhythm No atrial fibrillation (2) Ischemic cardiomyopathy: ECHO::Moderate sized inferior, inferolateral wall motion abnormality with moderate hypokinesis of the segments EF of 35 to 40% He is going to have a pacemaker for better cardiac output and cardiac function (3) COPD (chronic obstructive pulmonary disease): History of COPD Does not have any acute exacerbation at this time (4) CAD (coronary artery disease), [place] coronary artery: No acute cardiac symptoms except CHF (5) Diabetes mellitus, type 2: Hold metformin for now SSI DVT prophylaxis Has been on IV heparin which should be continued for 24 hours Prophylactic heparin following that Admission and Anticipated Discharge Date Admission Date: March 19, 2020 Subjective The patient was seen and examined in telemetry unit He was admitted yesterday with increasing shortness of breath and weight gain with history of CAD and diastolic heart failure He has been diuresing well with intravenous Lasix and feels a lot better this morning Denies any chest pain and/or palpitation 03/21/2020 Patient was seen and examined in telemetry unit He remains stable and he is swelling of the legs and scrotum have improved a lot Denies any shortness of breath at rest He is ready for the pacemaker placement as all discussed by the pyridine recovery operator Review of Systems Review of Systems: All systems reviewed and are unremarkable except as noted below Constitutional: + weakness and + weight gain Physical Exam Physical Exam: Sitting at the edge of the bed without any acute symptoms Constitutional: well developed, well nourished and + obese; no acute distress and not ill appearing Eyes: PERRL, conjunctivae normal, anicteric sclerae ENMT: external ear and nose normal, oropharynx normal Neck: trachea midline, no thyromegaly Respiratory: normal respiratory effort; no respiratory distress Au scultation: + diminished lung sounds and + crackles (Minimal crackles at the bases) Cardiovascular: Rate/Rhythm: regular rate and regular rhythm Heart Sounds: no murmur Extremities: + edema (Bilateral leg edema 1-2+) Gastrointestinal (Abdomen): Inspection/Auscultation: abdomen normal to inspection; abdomen not distended Percussion/Palpation: abdomen soft; abdomen nontender Musculoskeletal: No acute arthritis involving any joints Neurologic: moves all extremities; no focal motor deficits Alert, and and oriented x3 Results & Data Results & Data ([facility]) Vital Signs (Past 12 Hours) Vital Signs Temp Pulse Resp BP BP Pulse Ox 03/21/20 15:22 36.7 C 75 18 114/51 L 92 03/21/20 11:35 36.6 C 65 20 144/58 H 91 03/21/20 07:37 36.5 C 66 19 151/67 H 90 03/21/20 04:08 36.6 C 83 18 110/54 L 90 Laboratory Results [facility] 03/21/20 06:47 Sodium 140 Potassium 3.3 L Chloride 101 Carbon Dioxide 33 H BUN 13 Creatinine 0.69 Glucose 142 H Calcium 8.2 L Medications Administered Current Inpatient Medications Acetaminophen (Tylenol) 650 mg PO Q4H PRN PRN Reason: Pain or Fever Stop: 04/18/20 21:23 Albuterol (Ventolin Hfa) 2 puffs INH Q4H PRN PRN Reason: Shortness Of Breath Or Wheezing Stop: 04/18/20 21:23 Last Admin: 03/21/20 00:22 Dose: 2 puffs Documented by: Aspirin (Ecotrin Ectab) 81 mg PO DAILY [facility] Stop: 04/19/20 08:59 Last Admin: 03/21/20 08:31 Dose: 81 mg Documented by: Atorvastatin Calcium (Lipitor) 80 mg PO DAILY [facility] Stop: 04/19/20 08:59 Last Admin: 03/21/20 08:32 Dose: 80 mg Documented by: Clopidogrel Bisulfate (Plavix) 75 mg PO DAILY [facility] Stop: 04/19/20 08:59 Last Admin: 03/21/20 08:31 Dose: 75 mg Documented by: Dextrose (Dextrose 50%) 25 - 50 ml IV UD PRN; Protocol PRN Reason: Hypoglycemia Protocol Stop: 04/18/20 21:44 Escitalopram Oxalate (Lexapro Tab) 20 mg PO DAILY [facility] Stop: 04/19/20 08:59 Last Admin: 03/21/20 08:31 Dose: 20 mg Documented by: Fenofibrate (Tricor) 145 mg PO DAILY [facility] Stop: 04/19/20 08:59 Last Admin: 03/21/20 08:31 Dose: 145 mg Documented by: Fluticasone Propionate (Flonase) 2 sprays NA DAILY [facility] Stop: 04/19/20 08:59 Last Admin: 03/21/20 08:32 Dose: Not Given Documented by: Fluticasone/Vilanterol (Breo Ellipta 100/25 Mcg Inh) 1 puffs INH DAILY [facility] Stop: 04/19/20 08:59 Last Admin: 03/21/20 08:32 Dose: Not Given Documented by: Glucagon (Glucagen) 1 mg IM UD PRN; Protocol PRN Reason: Hypoglycemia Protocol Stop: 04/18/20 21:44 Glucose (Glucose 40%) 15 - 30 gm PO UD PRN; Protocol PRN Reason: Hypoglycemia Protocol Stop: 04/18/20 21:44 Glucose (Dex4 Glucose) 4 - 8 tabs PO UD PRN; Protocol PRN Reason: Hypoglycemia Protocol Stop: 04/18/20 21:44 Furosemide 40 mg/ Syringe 4 mls @ 4 mls/min IV TID [facility] Stop: 04/20/20 13:59 Last Admin: 03/21/20 14:43 Dose: 4 mls/min Documented by: Insulin Aspart (Novolog Flexpen) 0 units SC ACHS [facility] Stop: 04/18/20 22:59 Last Admin: 03/21/20 11:57 Dose: 12 units Documented by: Insulin Glargine (Lantus Solostar Pen) 25 units SQ QAM [facility] Stop: 04/19/20 08:59 Last Admin: 03/21/20 08:29 Dose: 25 units Documented by: Insulin Glargine (Lantus Solostar Pen) 30 units SQ HS [facility] Stop: 04/18/20 22:59 Last Admin: 03/20/20 21:07 Dose: 30 units Documented by: Isosorbide Dinitrate (Isordil) 10 mg PO BID@0700,1200 [facility] Stop: 04/19/20 06:59 Last Admin: 03/21/20 11:58 Dose: 10 mg Documented by: Loratadine (Claritin) 10 mg PO DAILY PRN PRN Reason: Allergy Symptoms Stop: 04/18/20 21:23 Metoprolol Succinate (Toprol Xl) 25 mg PO DAILY [facility] Stop: 04/19/20 08:59 Last Admin: 03/21/20 08:31 Dose: 25 mg Documented by: Miscellaneous (Order Awaiting Action) 1 ea N/A QS [facility] Stop: 04/19/20 00:00 Last Admin: 03/21/20 15:40 Dose: Not Given Documented by: Miscellaneous (Order Awaiting Action) 1 ea N/A QS [facility] Stop: 04/19/20 00:00 Last Admin: 03/21/20 15:40 Dose: Not Given Documented by: Miscellaneous (Carbohydrates For Hypoglycemia) 15 - 30 gm PO UD PRN PRN Reason: Hypoglycemia Treatment Stop: 04/18/20 21:44 Nitroglycerin (Nitrostat) 0.4 mg SL UD PRN PRN Reason: Chest Pain Stop: 04/18/20 21:23 Ondansetron HCl (Zofran) 4 mg IV Q6H PRN PRN Reason: Nausea Stop: 04/18/20 21:23 Polyethylene Glycol (Miralax Powder Packet) 17 gm PO DAILY PRN PRN Reason: Constipation Stop: 04/18/20 21:23 Potassium Chloride (Klor-Con M20) 20 meq PO TID [facility] Stop: 04/20/20 13:59 Last Admin: 03/21/20 14:43 Dose: 20 meq Documented by: Sacubitril/Valsartan (Entresto 24/26mg) 1 tab PO BID [facility] Stop: 04/18/20 21:59 Last Admin: 03/21/20 08:31 Dose: 1 tab Documented by: Spironolactone (Aldactone) 12.5 mg PO DAILY [facility] Stop: 04/19/20 08:59 Last Admin: 03/21/20 08:31 Dose: 12.5 mg Documented by: Trazodone HCl (Desyrel) 50 mg PO HS [facility] Stop: 04/18/20 22:59 Last Admin: 03/20/20 21:06 Dose: 50 mg Documented by: (1) CAD (coronary artery disease), [place] coronary artery [place] vs. transplanted heart: [place] heart Associated angina: angina presence unspecified Qualified Code(s): I25.10 - Atherosclerotic heart disease of [place] coronary artery without angina pectoris
[2020-03-21] MEDS: TRAZODONE HCL 50 MG TAB PO SCH (21:31)
[2020-03-22] MEDS: ISOSORBIDE DINITRATE 10 MG TAB PO SCH ×2 (05:37→12:12)
[2020-03-22] MEDS: POTASSIUM CHLORIDE 20 MEQ TABCR PO SCH ×3 (07:49→20:37)
[2020-03-22] MEDS: ATORVASTATIN 40 MG TAB PO SCH (07:49)
[2020-03-22] MEDS: CLOPIDOGREL BISULFATE 75 MG TAB PO SCH (07:50)
[2020-03-22] MEDS: SACUBITRIL-VALSARTAN 24-26 MG TAB PO SCH ×2 (07:50→20:37)
[2020-03-22] MEDS: METOPROLOL SUCC 25MG EXT REL TAB PO SCH (07:50)
[2020-03-22] MEDS: ESCITALOPRAM OXALATE 20 MG TAB PO SCH (07:50)
[2020-03-22] MEDS: ASPIRIN 81 MG ECTAB PO SCH (07:50)
[2020-03-22] MEDS: SPIRONOLACTONE 12.5 MG TAB PO SCH (07:50)
[2020-03-22] MEDS: FENOFIBRATE NANOCRYSTALLIZED 145 MG TABLET PO SCH (07:50)
[2020-03-22] MEDS: INSULIN ASPART 100 UNITS/ML 3 ML PEN SC SCH ×4 (07:51→20:37)
[2020-03-22] MEDS: INSULIN GLARGINE SOLOSTAR 100 UNITS/ML 3 ML PEN SQ SCH ×2 (07:51→22:04)
[2020-03-22 08:09] LABS: BUN Creatinine Ratio 19.8 (10-20); Creatinine Clr Calc Pharmacy 93.8 ml/min; Est GFR (African American) 101.5; Est GFR (Non-African American) 87.6; Magnesium 1.6 mg/dl (1.8-2.4); Potassium 3.7 mmol/L (3.5-5.1)
[2020-03-22] MEDS: FUROSEMIDE 40 MG in SYRINGE 0 ML IV SCH ×2 (08:45→14:44)
[2020-03-22] MEDS: FLUTICASONE/VILANTEROL 100/25MCG 14 PUFFS/INHALER INH SCH (08:46)
[2020-03-22] MEDS: FLUTICASONE PROPIONATE NA SPR 16 GM BTL SCH (08:46)
[2020-03-22] MEDS ORDERED: MAGNESIUM SULFATE / D5W 1 GM/100 ML BAG IV ONE (09:00)
--- NOTE | 2020-03-22 13:56 | Cardiology Progress Note ---
Date of Service March 22, 2020 Assessment & Plan (1) Acute on chronic congestive heart failure: Patient presents with gradual decompensated biventricular heart failure right greater than left with increasing lower extremity edema abdominal bloating and scrotal edema. No acute precipitant. Patient per description compliant with medications. Now responding to IV diuretics Review of EKGs and presentation reveals sinus rhythm with first-degree AV block (no atrial fibrillation) Plan: Continue prehospital medications with patient on good guideline directed CHF medical regimen including beta-mckayla, Entresto, spironolactone We will supplement potassium this morning Suspect patient may ultimately benefit from biventricular pacer defibrillator, possibly this admission. We will keep n.p.o. after midnight tonight, hold a.m. Lasix (2) Ischemic cardiomyopathy: EF approximately 35% on current study (3) Left bundle branch block: (4) Status post coronary artery bypass grafting: (5) COPD (chronic obstructive pulmonary disease): Subjective Patient seen and examined, chart, medications, telemetry reviewed. Good diuresis overnight and patient feels improved. No dizziness or lightheadedness no chest pains or discomfort. Physical Exam Constitutional: WD/WN, vitals as above + obese; no acute distress Eyes: PERRL, conjunctivae normal, anicteric sclerae ENMT: external ear and nose normal, oropharynx normal Neck: trachea midline, no thyromegaly Respiratory: Auscultation: + diminished lung sounds and + rales Cardiovascular: Rate/Rhythm: regular rate and regular rhythm Heart Sounds: normal S1 and normal S2; no murmur Palpation: normal PMI Vessels: + JVD, normal carotid upstroke and radial pulses present; no carotid bruit Extremities: + edema (Diminished 1-2+) Gastrointestinal (Abdomen): normal bowel sounds, soft, nontender, no hepatosplenomegaly Musculoskeletal: no cyanosis or clubbing, extremities motor strength 5/5 Skin: no rashes, warm and dry Neurologic: PERRL, EOMI, accommodation nl, no face palsy, no dysarthria Psychiatric: A+Ox3, euthymic affect Results & Data Vital Signs (Past 12 Hours) Vital Signs Temp Pulse Pulse Resp BP BP Pulse Ox 03/22/20 11:57 36.6 C 64 20 125/67 93 03/22/20 07:43 36.6 C 75 18 135/80 92 03/22/20 03:31 36.9 C 80 18 99/41 L 90 Laboratory Results Laboratory Results - last 24 hr 03/21/20 03/21/20 03/22/20 16:44 20:38 06:53 Sodium 140 Potassium 3.7 Chloride 102 Carbon Dioxide 33 H Anion Gap 5.0 BUN 16 Creatinine 0.81 Est Cr Clr Drug Dosing 93.8 Est GFR ( Amer) 101.5 Est GFR (Non-Af Amer) 87.6 BUN/Creatinine Ratio 19.8 Glucose 100 H POC Glucose 105 H 124 H Calcium 8.0 L Magnesium 1.6 L 03/22/20 03/22/20 07:27 11:16 Sodium Potassium Chloride Carbon Dioxide Anion Gap BUN Creatinine Est Cr Clr Drug Dosing Est GFR ( Amer) Est GFR (Non-Af Amer) BUN/Creatinine Ratio Glucose POC Glucose 97 119 H Calcium Magnesium
[2020-03-22] MEDS ORDERED: POTASSIUM CHLORIDE 20 MEQ TABCR PO ONE (14:05)
--- NOTE | 2020-03-22 17:25 | Hospitalist Progress Note ---
Date of Service March 22, 2020 Assessment & Plan (1) Acute on chronic congestive heart failure: Presented with shortness of breath and weight gain Noted to have acute on chronic CHF Has been diuresing enough with intravenous Lasix and will continue Echo of the heart showed-normal LV size with mild concentric LV hypertrophy and septal motion is consistent with conduction abnormality. There is a moderate sized inferior inferolateral wall motion abnormality with moderate hypokinesis of the segments. EF of 35 to 40%. Diastolic dysfunction grade 3 consistent with marked congestive heart failure. Aortic valve sclerosis without stenosis. The inferior vena cava is mildly dilated Appreciate cardiology input and recommendation Diuresing enough and the swelling is much improved Lasix doses have been increased We will continue current medications and is good plan for pacemaker placement l ikoctavio tomorrow LBBB Noted to have first-degree AV block in EKG Otherwise normal sinus rhythm No atrial fibrillation (2) Ischemic cardiomyopathy: ECHO::Moderate sized inferior, inferolateral wall motion abnormality with moderate hypokinesis of the segments EF of 35 to 40% He is going to have a pacemaker for better cardiac output and cardiac function (3) COPD (chronic obstructive pulmonary disease): History of COPD Does not have any acute exacerbation at this time We will continue current medications (4) CAD (coronary artery disease), [place] coronary artery: No acute cardiac symptoms except CHF (5) Diabetes mellitus, type 2: Hold metformin for now SSI DVT prophylaxis Has been on IV heparin which should be continued for 24 hours Prophylactic heparin following that Admission and Anticipated Discharge Date Admission Date: March 19, 2020 Subjective The patient was seen and examined in telemetry unit He was admitted yesterday with increasing shortness of breath and weight gain with history of CAD and diastolic heart failure He has been diuresing well with intravenous Lasix and feels a lot better this morning Denies any chest pain and/or palpitation 03/21/2020 Patient was seen and examined in telemetry unit He remains stable and he is swelling of the legs and scrotum have improved a lot Denies any shortness of breath at rest He is ready for the pacemaker placement as all discussed by the teleprinter 03/22/2020 The patient was seen and examined in telemetry unit He has been feeling much better and denies any shortness of breath at rest His leg swelling are getting better to Review of Systems Review of Systems: All systems reviewed and are unremarkable except as noted below Constitutional: + weakness and + weight gain Physical Exam Physical Exam: Lying in bed without any acute distress Constitutional: well developed, well nourished and + obese; no acute distress and not ill appearing Eyes: PERRL, conjunctivae normal, anicteric sclerae ENMT: external ear and nose normal, oropharynx normal Neck: trachea midline, no thyromegaly Respiratory: normal respiratory effort; no respiratory distress Auscultation: + diminished lung sounds and + crackles (Minimal crackles at the bases) Cardiovascular: Rate/Rhythm: regular rate and regular rhythm Heart Sounds: no murmur Extremities: + edema (Bilateral leg edema 1-2+-gradually improving) Gastrointestinal (Abdomen): Inspection/Auscultation: abdomen normal to inspection; abdomen not distended Percussion/Palpation: abdomen soft; abdomen nontender Neurologic: moves all extremities; no focal motor deficits Lymphatic: no cervical or axillary lymphadenopathy Results & Data Results & Data ([facility]) Vital Signs (Past 12 Hours) Vital Signs Temp Pulse Resp BP BP Pulse Ox 03/22/20 15:42 36.5 C 60 18 122/66 91 03/22/20 11:57 36.6 C 64 20 125/67 93 03/22/20 07:43 36.6 C 75 18 135/80 92 Laboratory Results [facility] 03/22/20 06:53 Sodium 140 Potassium 3.7 Chloride 102 Carbon Dioxide 33 H BUN 16 Creatinine 0.81 Glucose 100 H Calcium 8.0 L Medications Administered Current Inpatient Medications Acetaminophen (Tylenol) 650 mg PO Q4H PRN PRN Reason: Pain or Fever Stop: 04/18/20 21:23 Albuterol (Ventolin Hfa) 2 puffs INH Q4H PRN PRN Reason: Shortness Of Breath Or Wheezing Stop: 04/18/20 21:23 Last Admin: 03/21/20 00:22 Dose: 2 puffs Documented by: Aspirin (Ecotrin Ectab) 81 mg PO DAILY [facility] Stop: 04/19/20 08:59 Last Admin: 03/22/20 07:50 Dose: 81 mg Documented by: Atorvastatin Calcium (Lipitor) 80 mg PO DAILY [facility] Stop: 04/19/20 08:59 Last Admin: 03/22/20 07:49 Dose: 80 mg Documented by: Clopidogrel Bisulfate (Plavix) 75 mg PO DAILY [facility] Stop: 04/19/20 08:59 Last Admin: 03/22/20 07:50 Dose: 75 mg Documented by: Dextrose (Dextrose 50%) 25 - 50 ml IV UD PRN; Protocol PRN Reason: Hypoglycemia Protocol Stop: 04/18/20 21:44 Escitalopram Oxalate (Lexapro Tab) 20 mg PO DAILY [facility] Stop: 04/19/20 08:59 Last Admin: 03/22/20 07:50 Dose: 20 mg Documented by: Fenofibrate (Tricor) 145 mg PO DAILY [facility] Stop: 04/19/20 08:59 Last Admin: 03/22/20 07:50 Dose: 145 mg Documented by: Fluticasone Propionate (Flonase) 2 sprays NA DAILY [facility] Stop: 04/19/20 08:59 Last Admin: 03/22/20 08:46 Dose: Not Given Documented by: Fluticasone/Vilanterol (Breo Ellipta 100/25 Mcg Inh) 1 puffs INH DAILY [facility] Stop: 04/19/20 08:59 Last Admin: 03/22/20 08:46 Dose: Not Given Documented by: Glucagon (Glucagen) 1 mg IM UD PRN; Protocol PRN Reason: Hypoglycemia Protocol Stop: 04/18/20 21:44 Glucose (Glucose 40%) 15 - 30 gm PO UD PRN; Protocol PRN Reason: Hypoglycemia Protocol Stop: 04/18/20 21:44 Glucose (Dex4 Glucose) 4 - 8 tabs PO UD PRN; Protocol PRN Reason: Hypoglycemia Protocol Stop: 04/18/20 21:44 Furosemide 40 mg/ Syringe 4 mls @ 4 mls/min IV TID [facility] Stop: 04/20/20 13:59 Last Admin: 03/22/20 14:44 Dose: 4 mls/min Documented by: Insulin Aspart (Novolog Flexpen) 0 units SC ACHS [facility] Stop: 04/18/20 22:59 Last Admin: 03/22/20 16:59 Dose: 7 units Documented by: Insulin Glargine (Lantus Solostar Pen) 25 units SQ QAM [facility] Stop: 04/19/20 08:59 Last Admin: 03/22/20 07:51 Dose: 25 units Documented by: Insulin Glargine (Lantus Solostar Pen) 30 units SQ HS [facility] Stop: 04/18/20 22:59 Last Admin: 03/21/20 21:32 Dose: 30 units Documented by: Isosorbide Dinitrate (Isordil) 10 mg PO BID@0700,1200 [facility] Stop: 04/19/20 06:59 Last Admin: 03/22/20 12:12 Dose: 10 mg Documented by: Loratadine (Claritin) 10 mg PO DAILY PRN PRN Reason: Allergy Symptoms Stop: 04/18/20 21:23 Metoprolol Succinate (Toprol Xl) 25 mg PO DAILY [facility] Stop: 04/19/20 08:59 Last Admin: 03/22/20 07:50 Dose: 25 mg Documented by: Miscellaneous (Order Awaiting Action) 1 ea N/A QS [facility] Stop: 04/19/20 00:00 Last Admin: 03/22/20 15:07 Dose: Not Given Documented by: Miscellaneous (Order Awaiting Action) 1 ea N/A QS [facility] Stop: 04/19/20 00:00 Last Admin: 03/22/20 15:07 Dose: Not Given Documented by: Miscellaneous (Carbohydrates For Hypoglycemia) 15 - 30 gm PO UD PRN PRN Reason: Hypoglycemia Treatment Stop: 04/18/20 21:44 Nitroglycerin (Nitrostat) 0.4 mg SL UD PRN PRN Reason: Chest Pain Stop: 04/18/20 21:23 Ondansetron HCl (Zofran) 4 mg IV Q6H PRN PRN Reason: Nausea Stop: 04/18/20 21:23 Polyethylene Glycol (Miralax Powder Packet) 17 gm PO DAILY PRN PRN Reason: Constipation Stop: 04/18/20 21:23 Potassium Chloride (Klor-Con M20) 20 meq PO TID [facility] Stop: 04/20/20 13:59 Last Admin: 03/22/20 14:44 Dose: 20 meq Documented by: Sacubitril/Valsartan (Entresto 24/26mg) 1 tab PO BID [facility] Stop: 04/18/20 21:59 Last Admin: 03/22/20 07:50 Dose: 1 tab Documented by: Spironolactone (Aldactone) 12.5 mg PO DAILY [facility] Stop: 04/19/20 08:59 Last Admin: 03/22/20 07:50 Dose: 12.5 mg Documented by: Trazodone HCl (Desyrel) 50 mg PO HS [facility] Stop: 04/18/20 22:59 Last Admin: 03/21/20 21:31 Dose: 50 mg Documented by: (1) CAD (coronary artery disease), [place] coronary artery [place] vs. transplanted heart: [place] heart Associated angina: angina presence unspecified Qualified Code(s): I25.10 - Atherosclerotic heart disease of [place] coronary artery without angina pectoris
[2020-03-22] MEDS: HEPARIN SOD 5,000 UNIT/0.5 ML VIAL SQ SCH (20:37)
[2020-03-22] MEDS: TRAZODONE HCL 50 MG TAB PO SCH (20:37)
[2020-03-23] MEDS: ISOSORBIDE DINITRATE 10 MG TAB PO SCH ×2 (06:20→12:17)
[2020-03-23] MEDS: INSULIN ASPART 100 UNITS/ML 3 ML PEN SC SCH ×4 (08:09→21:03)
[2020-03-23] MEDS: FENOFIBRATE NANOCRYSTALLIZED 145 MG TABLET PO SCH (08:10)
[2020-03-23] MEDS: METOPROLOL SUCC 25MG EXT REL TAB PO SCH (08:10)
[2020-03-23] MEDS: ATORVASTATIN 40 MG TAB PO SCH (08:10)
[2020-03-23] MEDS: CLOPIDOGREL BISULFATE 75 MG TAB PO SCH (08:10)
[2020-03-23] MEDS: FLUTICASONE/VILANTEROL 100/25MCG 14 PUFFS/INHALER INH SCH (08:10)
[2020-03-23] MEDS: SPIRONOLACTONE 12.5 MG TAB PO SCH (08:10)
[2020-03-23] MEDS: ASPIRIN 81 MG ECTAB PO SCH (08:10)
[2020-03-23] MEDS: ESCITALOPRAM OXALATE 20 MG TAB PO SCH (08:10)
[2020-03-23] MEDS: INSULIN GLARGINE SOLOSTAR 100 UNITS/ML 3 ML PEN SQ SCH ×2 (08:11→21:03)
[2020-03-23] MEDS: FLUTICASONE PROPIONATE NA SPR 16 GM BTL SCH (08:11)
[2020-03-23] MEDS: SACUBITRIL-VALSARTAN 24-26 MG TAB PO SCH ×2 (08:11→21:02)
[2020-03-23] MEDS: POTASSIUM CHLORIDE 20 MEQ TABCR PO SCH ×3 (08:12→21:02)
[2020-03-23 09:17] LABS: Hematocrit (blood only) 43.2 % (42-52); Hemoglobin 13.9 g/dL (14.0-18.0); Mean Corpuscular Hemoglobin 30.7 pg (25-34); Mean Corpuscular Hgb Conc 32.2 g/dL (32-36); Mean Corpuscular Volume 95.4 fL (80-100); Mean Platelet Volume 9.9 fL (7.4-10.4); Platelet Count 334 K/uL (130-400); RDW Coefficient of Variation 13.8 % (11.5-14.5); RDW Standard Deviation 48.2 fL (36.4-46.3); Red Blood Count 4.53 M/uL (4.7-6.1); White Blood Count 8.75 K/uL (4.8-10.8)
[2020-03-23 09:59] LABS: BUN Creatinine Ratio 18.5 (10-20); Calcium 8.3 mg/dl (8.5-10.1); Creatinine Clr Calc Pharmacy 79.5 ml/min; Est GFR (African American) 89.9; Est GFR (Non-African American) 77.6; Magnesium 1.9 mg/dl (1.8-2.4); Potassium 4.5 mmol/L (3.5-5.1)
[2020-03-23] MEDS: HEPARIN SOD 5,000 UNIT/0.5 ML VIAL SQ SCH ×2 (10:24→21:02)
--- NOTE | 2020-03-23 11:09 | Cardiology Progress Note ---
Date of Service March 23, 2020 Assessment & Plan (1) Acute on chronic congestive heart failure: Patient presents with gradual decompensated biventricular heart failure right greater than left with increasing lower extremity edema abdominal bloating and scrotal edema. No acute precipitant. Patient per description compliant with medications. Now responding to IV diuretics Review of EKGs and presentation reveals sinus rhythm with first-degree AV block (no atrial fibrillation) Plan: Continue prehospital medications with patient on good guideline directed CHF medical regimen including beta-mckayla, Entresto, spironolactone IV furosemide held this morning with anticipation of pacer defibrillator insertion later today, bi V device (2) Ischemic cardiomyopathy: EF approximately 35% on current study (3) Left bundle branch block: (4) Status post coronary artery bypass grafting: (5) COPD (chronic obstructive pulmonary disease): Subjective Patient seen and examined, chart, medications, telemetry reviewed Hungry but no other complaints. No dyspnea or chest discomfort. Weight down 6 kg from admission. Abdominal bloating lower extremity edema substantially improved. No arrhythmias overnight Physical Exam Constitutional: WD/WN, vitals as above + obese; no acute distress Eyes: PERRL, conjunctivae normal, anicteric sclerae ENMT: external ear and nose normal, oropharynx normal Neck: trachea midline, no thyromegaly Respiratory: Auscultation: + diminished lung sounds and + rales Cardiovascular: Rate/Rhythm: regular rate and regular rhythm Heart Sounds: normal S1 and normal S2; no murmur Palpation: normal PMI Vessels: + JVD, normal carotid upstroke and radial pulses present; no carotid bruit Extremities: + edema (Diminished 1-2+) Gastrointestinal (Abdomen): normal bowel sounds, soft, nontender, no hepatosplenomegaly Musculoskeletal: no cyanosis or clubbing, extremities motor strength 5/5 Skin: no rashes, warm and dry Neurologic: PERRL, EOMI, accommodation nl, no face palsy, no dysarthria Psychiatric: A+Ox3, euthymic affect Results & Data Vital Signs (Past 12 Hours) Vital Signs Temp Pulse Pulse Resp BP Pulse Ox 03/23/20 08:07 36.6 C 60 18 127/75 93 03/23/20 03:28 36.5 C 65 16 122/71 92 03/22/20 23:35 36.3 C L 64 18 123/71 92 03/22/20 23:27 60 Laboratory Results Laboratory Results - last 24 hr 03/22/20 03/22/20 03/22/20 11:16 16:37 20:13 WBC RBC Hgb Hct MCV MCH MCHC RDW Std Deviation RDW Coeff of Shellie Plt Count MPV Sodium Potassium Chloride Carbon Dioxide Anion Gap BUN Creatinine Est Cr Clr Drug Dosing Est GFR ( Amer) Est GFR (Non-Af Amer) BUN/Creatinine Ratio Glucose POC Glucose 119 H 147 H 123 H Calcium Magnesium 03/23/20 03/23/20 09:03 09:03 WBC 8.75 RBC 4.53 L Hgb 13.9 L Hct 43.2 MCV 95.4 MCH 30.7 MCHC 32.2 RDW Std Deviation 48.2 H RDW Coeff of Shellie 13.8 Plt Count 334 MPV 9.9 Sodium 140 Potassium 4.5 D Chloride 103 Carbon Dioxide 34 H Anion Gap 4.0 BUN 18 Creatinine 0.96 Est Cr Clr Drug Dosing 79.5 Est GFR ( Amer) 89.9 Est GFR (Non-Af Amer) 77.6 BUN/Creatinine Ratio 18.5 Glucose 100 H POC Glucose Calcium 8.3 L Magnesium 1.9
[2020-03-23] MEDS ORDERED: LIDOCAINE HCL 1% 20 ML VIAL ONE (12:25)
[2020-03-23] MEDS ORDERED: BUPIVACAINE 0.25% 30 ML VIAL ONE (12:25)
[2020-03-23] MEDS ORDERED: BACITRACIN INJ 50,000 UNIT VIAL ONE (12:26)
--- NOTE | 2020-03-23 14:24 | Pre Anesthesia Assessment ---
Date of Service March 23, 2020 Pre Sedation Assessment Vital Signs Temp Pulse Pulse Pulse Resp BP Pulse Ox 03/23/20 13:20 36.8 C 58 L 18 125/63 93 03/23/20 11:44 37.1 C 56 L 19 127/59 L 92 03/23/20 08:07 36.6 C 60 18 127/75 93 03/23/20 03:28 36.5 C 65 16 122/71 92 03/22/20 23:35 36.3 C L 64 18 123/71 92 03/22/20 23:27 60 03/22/20 19:10 36.8 C 65 17 113/58 L 94 03/22/20 15:42 36.5 C 60 18 122/66 91 Cardiovascular RRR, no murmur, no edema Respiratory normal respiratory effort, lungs clear to auscultation Pre-Sedation Airway Assessment Smoking Status: Current every day smoker Short, Thick Neck: No Thyromental Distance: > or= 3.5 Finger Breadths Oral Cavity: + Dentures Mallampati Class: II ASA: ASA2 NPO Status Date of Last Intake of Fluids: 03/22/20 Time of Last Intake of Fluids: 18:00 Date of Last Intake of Solid Food: 03/22/20 Time of Last Intake of Solid Foods: 18:00 Procedure Planning Contraindications for Sedation: none Current Medications Reviewed: Yes Notes The planned sedation has been discussed with the patient. Informed Consent was obtained. I have identified the patient, determined the appropriateness of sedation and have assessed the patient immediately prior to the procedure. All medicine(s) and interventions are by my order.
--- NOTE | 2020-03-23 14:25 | History & Physical Bridge Note ---
Date of Service March 23, 2020 History & Physical Bridge Note I have examined the patient, reviewed the History & Physical and in the interval since the performance of the History & Physical I have noted the following changes of clinical significance: pt for BIV ICD due to ICM, LBBB, and heart failure. Discussed the procedure and potential risks consents signed
[2020-03-23] MEDS ORDERED: fentaNYL citrate 100 MCG/2 ML VIAL ONE (14:28)
[2020-03-23] MEDS ORDERED: MIDAZOLAM HCL 5 MG/ML 1 ML VIAL ONE (14:28)
--- NOTE | 2020-03-23 14:30 | Hospitalist Progress Note ---
Date of Service March 23, 2020 Assessment & Plan (1) Acute on chronic congestive heart failure: Presented with shortness of breath and weight gain Noted to have acute on chronic CHF Has been diuresing enough with intravenous Lasix and will continue Echo of the heart showed-normal LV size with mild concentric LV hypertrophy and septal motion is consistent with conduction abnormality. There is a moderate sized inferior inferolateral wall motion abnormality with moderate hypokinesis of the segments. EF of 35 to 40%. Diastolic dysfunction grade 3 consistent with marked congestive heart failure. Aortic valve sclerosis without stenosis. The inferior vena cava is mildly dilated Appreciate cardiology input and recommendation Diuresing enough and the swelling is much improved Lasix doses have been increased Diuresing enough and feeling a lot better We will continue current management LBBB Noted to have first-degree AV block in EKG Otherwise normal sinus rhythm No atrial fibrillation We have biventricular device today for better cardiac function (2) Ischemic cardiomyopathy: ECHO::Moderate sized inferior, inferolateral wall motion abnormality with moderate hypokinesis of the segments EF of 35 to 40% He is going to have a pacemaker for better cardiac output and cardiac function As above (3) COPD (chronic obstructive pulmonary disease): History of COPD Does not have any acute exacerbation at this time We will continue current medications (4) CAD (coronary artery disease), [place] coronary artery: No acute cardiac symptoms except CHF (5) Diabetes mellitus, type 2: Hold metformin for now SSI DVT prophylaxis Has been on IV heparin which should be continued for 24 hours Prophylactic heparin following that Admission and Anticipated Discharge Date Admission Date: March 19, 2020 Subjective The patient was seen and examined in telemetry unit He was admitted yesterday with increasing shortness of breath and weight gain with history of CAD and diastolic heart failure He has been diuresing well with intravenous Lasix and feels a lot better this morning Denies any chest pain and/or palpitation 03/21/2020 Patient was seen and examined in telemetry unit He remains stable and he is swelling of the legs and scrotum have improved a lot Denies any shortness of breath at rest He is ready for the pacemaker placement as all discussed by the electric razor assembler 03/22/2020 The patient was seen and examined in telemetry unit He has been feeling much better and denies any shortness of breath at rest His leg swelling are getting better to 04/09/2020 The patient was seen and examined in telemetry unit He has been feeling a lot better and denies to have any shortness of breath or pain at rest He has been ambulating in the room without any difficulties Going to have dual-chamber pacemaker placed. Review of Systems Review of Systems: All systems reviewed and are unremarkable except as noted b elow Constitutional: + weakness and + weight gain Physical Exam Physical Exam: Walking around in room without any acute symptoms Constitutional: well developed, well nourished and + obese; no acute distress and not ill appearing Eyes: PERRL, conjunctivae normal, anicteric sclerae ENMT: external ear and nose normal, oropharynx normal Neck: trachea midline, no thyromegaly Respiratory: normal respiratory effort; no respiratory distress Auscultation: + diminished lung sounds and + crackles (Minimal crackles at the bases) Cardiovascular: Rate/Rhythm: regular rate and regular rhythm Heart Sounds: no murmur Extremities: + edema (Bilateral leg edema 1-2+-gradually improving) Gastrointestinal (Abdomen): Inspection/Auscultation: abdomen normal to inspection; abdomen not distended Percussion/Palpation: abdomen soft; abdomen nontender Neurologic: moves all extremities; no focal motor deficits Lymphatic: no cervical or axillary lymphadenopathy Results & Data Results & Data ([facility]) Vital Signs (Past 12 Hours) Vital Signs Temp Pulse Pulse Resp BP Pulse Ox 03/23/20 13:20 36.8 C 58 L 18 125/63 93 03/23/20 11:44 37.1 C 56 L 19 127/59 L 92 03/23/20 08:07 36.6 C 60 18 127/75 93 03/23/20 03:28 36.5 C 65 16 122/71 92 Laboratory Results Short CBC 03/23/20 Range/Units 09:03 WBC 8.75 (4.8-10.8) K/uL Hgb 13.9 L (14.0-18.0) g/dL Hct 43.2 (42-52) % Plt Count 334 (130-400) K/uL BMP 03/23/20 09:03 Sodium 140 Potassium 4.5 D Chloride 103 Carbon Dioxide 34 H BUN 18 Creatinine 0.96 Glucose 100 H Calcium 8.3 L Medications Administered Current Inpatient Medications Acetaminophen (Tylenol) 650 mg PO Q4H PRN PRN Reason: Pain or Fever Stop: 04/18/20 21:23 Albuterol (Ventolin Hfa) 2 puffs INH Q4H PRN PRN Reason: Shortness Of Breath Or Wheezing Stop: 04/18/20 21:23 Last Admin: 03/21/20 00:22 Dose: 2 puffs Documented by: Aspirin (Ecotrin Ectab) 81 mg PO DAILY [facility] Stop: 04/19/20 08:59 Last Admin: 03/23/20 08:10 Dose: 81 mg Documented by: Atorvastatin Calcium (Lipitor) 80 mg PO DAILY [facility] Stop: 04/19/20 08:59 Last Admin: 03/23/20 08:10 Dose: 80 mg Documented by: Clopidogrel Bisulfate (Plavix) 75 mg PO DAILY [facility] Stop: 04/19/20 08:59 Last Admin: 03/23/20 08:10 Dose: 75 mg Documented by: Dextrose (Dextrose 50%) 25 - 50 ml IV UD PRN; Protocol PRN Reason: Hypoglycemia Protocol Stop: 04/18/20 21:44 Escitalopram Oxalate (Lexapro Tab) 20 mg PO DAILY [facility] Stop: 04/19/20 08:59 Last Admin: 03/23/20 08:10 Dose: 20 mg Documented by: Fenofibrate (Tricor) 145 mg PO DAILY [facility] Stop: 04/19/20 08:59 Last Admin: 03/23/20 08:10 Dose: 145 mg Documented by: Fluticasone Propionate (Flonase) 2 sprays NA DAILY [facility] Stop: 04/19/20 08:59 Last Admin: 03/23/20 08:11 Dose: Not Given Documented by: Fluticasone/Vilanterol (Breo Ellipta 100/25 Mcg Inh) 1 puffs INH DAILY [facility] Stop: 04/19/20 08:59 Last Admin: 03/23/20 08:10 Dose: Not Given Documented by: Glucagon (Glucagen) 1 mg IM UD PRN; Protocol PRN Reason: Hypoglycemia Protocol Stop: 04/18/20 21:44 Glucose (Glucose 40%) 15 - 30 gm PO UD PRN; Protocol PRN Reason: Hypoglycemia Protocol Stop: 04/18/20 21:44 Glucose (Dex4 Glucose) 4 - 8 tabs PO UD PRN; Protocol PRN Reason: Hypoglycemia Protocol Stop: 04/18/20 21:44 Heparin Sodium (Porcine) (Heparin Sodium (Porcine)) 5,000 units SQ Q12 [facility] Stop: 04/21/20 20:59 Last Admin: 03/23/20 10:24 Dose: Not Given Documented by: Furosemide 40 mg/ Syringe 4 mls @ 4 mls/min IV TID [facility] Stop: 04/20/20 13:59 Last Admin: 03/22/20 14:44 Dose: 4 mls/min Documented by: Insulin Aspart (Novolog Flexpen) 0 units SC ACHS [facility] Stop: 04/18/20 22:59 Last Admin: 03/23/20 12:18 Dose: Not Given Documented by: Insulin Glargine (Lantus Solostar Pen) 25 units SQ QAM [facility] Stop: 04/19/20 08:59 Last Admin: 03/23/20 08:11 Dose: Not Given Documented by: Insulin Glargine (Lantus Solostar Pen) 30 units SQ HS [facility] Stop: 04/18/20 22:59 Last Admin: 03/22/20 22:04 Dose: 30 units Documented by: Isosorbide Dinitrate (Isordil) 10 mg PO BID@0700,1200 [facility] Stop: 04/19/20 06:59 Last Admin: 03/23/20 12:17 Dose: 10 mg Documented by: Loratadine (Claritin) 10 mg PO DAILY PRN PRN Reason: Allergy Symptoms Stop: 04/18/20 21:23 Metoprolol Succinate (Toprol Xl) 25 mg PO DAILY [facility] Stop: 04/19/20 08:59 Last Admin: 03/23/20 08:10 Dose: 25 mg Documented by: Miscellaneous (Order Awaiting Action) 1 ea N/A QS [facility] Stop: 04/19/20 00:00 Last Admin: 03/23/20 08:09 Dose: Not Given Documented by: Miscellaneous (Order Awaiting Action) 1 ea N/A QS [facility] Stop: 04/19/20 00:00 Last Admin: 03/23/20 08:09 Dose: Not Given Documented by: Miscellaneous (Carbohydrates For Hypoglycemia) 15 - 30 gm PO UD PRN PRN Reason: Hypoglycemia Treatment Stop: 04/18/20 21:44 Nitroglycerin (Nitrostat) 0.4 mg SL UD PRN PRN Reason: Chest Pain Stop: 04/18/20 21:23 Ondansetron HCl (Zofran) 4 mg IV Q6H PRN PRN Reason: Nausea Stop: 04/18/20 21:23 Polyethylene Glycol (Miralax Powder Packet) 17 gm PO DAILY PRN PRN Reason: Constipation Stop: 04/18/20 21:23 Potassium Chloride (Klor-Con M20) 20 meq PO TID [facility] Stop: 04/20/20 13:59 Last Admin: 03/23/20 13:27 Dose: Not Given Documented by: Sacubitril/Valsartan (Entresto 24/26mg) 1 tab PO BID [facility] Stop: 04/18/20 21:59 Last Admin: 03/23/20 08:11 Dose: 1 tab Documented by: Spironolactone (Aldactone) 12.5 mg PO DAILY [facility] Stop: 04/19/20 08:59 Last Admin: 03/23/20 08:10 Dose: 12.5 mg Documented by: Trazodone HCl (Desyrel) 50 mg PO HS [facility] Stop: 04/18/20 22:59 Last Admin: 03/22/20 20:37 Dose: 50 mg Documented by: (1) CAD (coronary artery disease), [place] coronary artery [place] vs. transplanted heart: [place] heart Associated angina: angina presen ce unspecified Qualified Code(s): I25.10 - Atherosclerotic heart disease of [place] coronary artery without angina pectoris
[2020-03-23] MEDS ORDERED: CEFAZOLIN 250 MG/ML 1 GM VIAL ONE (14:31)
--- NOTE | 2020-03-23 16:24 | Post Anesthesia Assessment ---
Date of Service March 23, 2020 Post Sedation Assessment Vital Signs Temp Pulse Pulse Pulse Resp BP Pulse Ox 03/23/20 13:20 36.8 C 58 L 18 125/63 93 03/23/20 11:44 37.1 C 56 L 19 127/59 L 92 03/23/20 08:07 36.6 C 60 18 127/75 93 03/23/20 03:28 36.5 C 65 16 122/71 92 03/22/20 23:35 36.3 C L 64 18 123/71 92 03/22/20 23:27 60 03/22/20 19:10 36.8 C 65 17 113/58 L 94 Recovery Score Activity: Moves 4 extremities Respiration: Deep Breath/Cough Circulation: +/-20% PreAnes Value Consciousness: Fully Awake Oxygen Saturation: > 92% On Room Air Discharge Sedation Level of Care: Fast Track Phase II Post Sedation Plan On clinical assessment, the patient appears to have tolerated the sedation without complications. Patient is recovering as anticipated. Patient will continue to be monitored by nursing and may be discharged when sedation discharge criteria are met per below protocol. Upon Completions of procedure up to 15 minutes continue every 5 minute vital signs and the P.A.R. score; then discharge to a Phase I or Fast Track to Phase II per the following guidelines: * Discharge Patient to appropriate Phase II area if PAR is 8 or greater or return to pre- procedure baseline. The post - procedure orders will be as directed. * If PAR score is less than 8 or not return to pre-procedure baseline then patient will follow Phase I monitoring till PAR is reached for Phase II. The Phase I may be done in procedure room or may call to secure a Phase I area. * If naloxone or flumazenil are used for reversal, hold in Phase I for continued monitoring from when last reversal dose was given for a minimum of 60 minutes or longer pending the nurse and/or physician discretion of patient condition before discharge to Phase II. Please call the Sedation Physician to re-evaluate and complete post-note for discharge to Phase II area. Do NOT discharge from procedure sedation or Phase 1 until post- sedation evaluation note is complete by procedure /sedation MD Sedation Discharge Instructions to be given to the patient at discharge to home.
--- NOTE | 2020-03-23 16:26 | Operative Report ---
Post Operative Report Pre & Post Diagnosis Pre: ICM. LBBB, Chronic systolic HF-NYHA Class III Post: same Operation Date: 03/23/20 13:15 <No data on this case meets the specified criteria> I identified the patient and participated in the time-out.: Yes Procedure Operation Date: 03/23/20 13:15 Actual Procedures p ICD Insertion Single or Dual - Irma Hess DO s Venogram, Unilateral - Irma Hess DO s Bundle of his Recording - Irma Hess DO s Insertion Single Lead Only - Irma Hess DO Surgeon Irma Hess, Cardiac Nurse Specialist none Estimated Blood Loss 20 Findings Consistent with Post-Op Diagnosis Specimens none Description of Procedure see official report I attest to the content of the Intraoperative Record and any orders documented therein. Any exceptions are noted below.
[2020-03-23] MEDS ORDERED: [UNRECOGNIZED DRUG - REMARK] PRN (16:30)
[2020-03-23] MEDS ORDERED: FUROSEMIDE 40 MG in SYRINGE 0 ML IV ONE (18:00)
[2020-03-23] MEDS: TRAZODONE HCL 50 MG TAB PO SCH (21:02)
[2020-03-24 06:38] LABS: Basophils # (auto) 0.02 K/uL (0-0.2); Basophils % (auto) 0.2 %; Eosinophils # (auto) 0.13 K/uL (0-0.5); Eosinophils % (auto) 1.4 %; Hematocrit (blood only) 41.5 % (42-52); Hemoglobin 13.7 g/dL (14.0-18.0); Immature Granulocytes # (auto) 0.03 K/uL (0.00-0.02); Immature Granulocytes % (auto) 0.3 %; Lymphocytes % (auto) 19.1 %; Mean Corpuscular Volume 93.9 fL (80-100); Mean Platelet Volume 10.2 fL (7.4-10.4); Monocytes # (auto) 0.98 K/uL (0.11-0.59); Monocytes % (auto) 10.4 %; Neutrophils # (auto) 6.45 K/uL (1.4-6.5); Neutrophils % (auto) 68.6 %; Platelet Count 329 K/uL (130-400); RDW Coefficient of Variation 13.6 % (11.5-14.5); RDW Standard Deviation 46.8 fL (36.4-46.3); Red Blood Count 4.42 M/uL (4.7-6.1); White Blood Count 9.41 K/uL (4.8-10.8)
--- NOTE | 2020-03-24 06:49 | XRay Report ---
XR chest 2V PA/lateral CLINICAL HISTORY: post BiV HIS bundle ICD COMPARISON STUDY: 03/19/2020 FINDINGS: Placement of a cardiac pacemaker/defibrillator. Leads are in good position. Left pleural effusion slightly improved from the prior exam. No evidence for pneumothorax. IMPRESSION: Cardiac pacer in good position. No evidence for pneumothorax. ACT 112: Negative or not required by law. The above report was generated using voice recognition software. It may contain grammatical, syntax or spelling errors. Electronically signed by: Todd Silva M.D. 03/24/2020 6:48 AM
[2020-03-24 07:05] LABS: BUN Creatinine Ratio 21.2 (10-20); Calcium 8.3 mg/dl (8.5-10.1); Est GFR (African American) 97.2; Est GFR (Non-African American) 83.8; Magnesium 1.8 mg/dl (1.8-2.4); Potassium 4.2 mmol/L (3.5-5.1)
[2020-03-24] MEDS: INSULIN ASPART 100 UNITS/ML 3 ML PEN SC SCH ×4 (08:09→21:30)
[2020-03-24] MEDS: INSULIN GLARGINE SOLOSTAR 100 UNITS/ML 3 ML PEN SQ SCH ×2 (08:10→21:27)
[2020-03-24] MEDS: HEPARIN SOD 5,000 UNIT/0.5 ML VIAL SQ SCH ×2 (08:11→21:23)
[2020-03-24] MEDS: CLOPIDOGREL BISULFATE 75 MG TAB PO SCH (08:17)
[2020-03-24] MEDS: POTASSIUM CHLORIDE 20 MEQ TABCR PO SCH ×3 (08:18→21:24)
[2020-03-24] MEDS: METOPROLOL SUCC 25MG EXT REL TAB PO SCH (08:18)
[2020-03-24] MEDS: FENOFIBRATE NANOCRYSTALLIZED 145 MG TABLET PO SCH (08:18)
[2020-03-24] MEDS: ATORVASTATIN 40 MG TAB PO SCH (08:19)
[2020-03-24] MEDS: ESCITALOPRAM OXALATE 20 MG TAB PO SCH (08:19)
[2020-03-24] MEDS: ASPIRIN 81 MG ECTAB PO SCH (08:19)
[2020-03-24] MEDS: SACUBITRIL-VALSARTAN 24-26 MG TAB PO SCH ×2 (08:20→21:23)
[2020-03-24] MEDS: SPIRONOLACTONE 12.5 MG TAB PO SCH (08:20)
[2020-03-24] MEDS: FLUTICASONE/VILANTEROL 100/25MCG 14 PUFFS/INHALER INH SCH (08:20)
[2020-03-24] MEDS: FLUTICASONE PROPIONATE NA SPR 16 GM BTL SCH (08:20)
[2020-03-24] MEDS: ISOSORBIDE DINITRATE 10 MG TAB PO SCH ×2 (08:20→11:58)
--- NOTE | 2020-03-24 14:37 | Cardiology Progress Note ---
Date of Service March 24, 2020 Assessment & Plan (1) Acute on chronic congestive heart failure: Patient presents with gradual decompensated biventricular heart failure right greater than left with increasing lower extremity edema abdominal bloating and scrotal edema. No acute precipitant. Patient per description compliant with medications. Now responding to IV diuretics Review of EKGs and presentation reveals sinus rhythm with first-degree AV block (no atrial fibrillation) Plan: Continue prehospital medications with patient on good guideline directed CHF medical regimen including beta-mckayla, Entresto, spironolactone Will resume diuretic with torsemide 10 mg daily Patient underwent successful pacer defibrillator implantation with resynchronization therapy with His bundle lead Will increase activities and if hemodynamically and arrhythmic stable discharge in a.m. (2) Ischemic cardiomyopathy: EF approximately 35% on current study (3) Left bundle branch block: (4) Status post coronary artery bypass grafting: (5) COPD (chronic obstructive pulmonary disease): Subjective Patient seen and examined, chart, medications, telemetry reviewed. No acute issues overnight. Underwent resynchronization pacer defibrillator implantation yesterday (His bundle lead) No fevers or chills. Weight trending downward. Tolerating current medications. Physical Exam Constitutional: WD/WN, vitals as above + obese; no acute distress Eyes: PERRL, conjunctivae normal, anicteric sclerae ENMT: external ear and nose normal, oropharynx normal Neck: trachea midline, no thyromegaly Respiratory: Auscultation: + diminished lung sounds and + rales Cardiovascular: Rate/Rhythm: regular rate and regular rhythm Heart Sounds: normal S1 and normal S2; no murmur Palpation: normal PMI Vessels: + JVD, normal carotid upstroke and radial pulses present; no carotid bruit Extremities: + edema (Diminished 1-2+) Chest (Breasts): Chest: + pacemaker (Incision healing well) Gastrointestinal (Abdomen): normal bowel sounds, soft, nontender, no hepatosplenomegaly Musculoskeletal: no cyanosis or clubbing, extremities motor strength 5/5 Skin: no rashes, warm and dry Neurologic: PERRL, EOMI, accommodation nl, no face palsy, no dysarthria Psychiatric: A+Ox3, euthymic affect Results & Data Vital Signs (Past 12 Hours) Vital Signs Temp Pulse Pulse Resp BP Pulse Ox 03/24/20 12:15 36.9 C 69 18 146/76 H 95 03/24/20 08:00 63 03/24/20 07:51 36.8 C 74 18 118/70 96 03/24/20 03:40 36.7 C 60 20 125/67 91 Laboratory Results Laboratory Results - last 24 hr 03/23/20 03/23/20 03/24/20 16:56 20:26 06:12 WBC 9.41 RBC 4.42 L Hgb 13.7 L Hct 41.5 L MCV 93.9 MCH 31.0 MCHC 33.0 RDW Std Deviation 46.8 H RDW Coeff of Shellie 13.6 Plt Count 329 MPV 10.2 Immature Gran % (Auto) 0.3 Neut % (Auto) 68.6 Lymph % (Auto) 19.1 [place] % (Auto) 10.4 Eos % (Auto) 1.4 Baso % (Auto) 0.2 Neut # (Auto) 6.45 Lymph # (Auto) 1.80 [place] # (Auto) 0.98 H Eos # (Auto) 0.13 Baso # (Auto) 0.02 Immature Gran # (Auto) 0.03 H Sodium Potassium Chloride Carbon Dioxide Anion Gap BUN Creatinine Est Cr Clr Drug Dosing Est GFR ( Amer) Est GFR (Non-Af Amer) BUN/Creatinine Ratio Glucose POC Glucose 111 H 179 H Calcium Magnesium 03/24/20 03/24/20 03/24/20 06:12 07:28 11:21 WBC RBC Hgb Hct MCV MCH MCHC RDW Std Deviation RDW Coeff of Shellie Plt Count MPV Immature Gran % (Auto) Neut % (Auto) Lymph % (Auto) [place] % (Auto) Eos % (Auto) Baso % (Auto) Neut # (Auto) Lymph # (Auto) [place] # (Auto) Eos # (Auto) Baso # (Auto) Immature Gran # (Auto) Sodium 140 Potassium 4.2 Chloride 103 Carbon Dioxide 32 Anion Gap 5.0 BUN 19 H Creatinine 0.90 Est Cr Clr Drug Dosing 85.0 Est GFR ( Amer) 97.2 Est GFR (Non-Af Amer) 83.8 BUN/Creatinine Ratio 21.2 H Glucose 70 POC Glucose 98 132 H Calcium 8.3 L Magnesium 1.8
--- NOTE | 2020-03-24 15:37 | Electrocardiogram Report ---
Test Reason : Blood Pressure : / mmHG Vent. Rate : 068 BPM Atrial Rate : 068 BPM P-R Int : 000 ms QRS Dur : 166 ms QT Int : 544 ms P-R-T Axes : 000 012 171 degrees QTc Int : 578 ms AV pacing with sensed PACs Abnormal ECG When compared with ECG of 21-MAR-2020 06:50, Electronic ventricular pacemaker has replaced Sinus rhythm Confirmed by Herb Chou ([id number]) on 03/24/2020 3:37:06 PM Referred By: REFERRED SELF Confirmed By:Emile Chou
[2020-03-24] MEDS: TORSEMIDE 10 MG TAB PO SCH (16:05)
[2020-03-24] MEDS: OXYCODONE/ACETAMINOPHEN 5mg/325mg TAB PO PRN (17:18)
--- NOTE | 2020-03-24 17:28 | Hospitalist Progress Note ---
Date of Service March 24, 2020 Assessment & Plan (1) Acute on chronic congestive heart failure: Presented with shortness of breath and weight gain Noted to have acute on chronic CHF Has been diuresing enough with intravenous Lasix and will continue Echo of the heart showed-normal LV size with mild concentric LV hypertrophy and septal motion is consistent with conduction abnormality. There is a moderate sized inferior inferolateral wall motion abnormality with moderate hypokinesis of the segments. EF of 35 to 40%. Diastolic dysfunction grade 3 consistent with marked congestive heart failure. Aortic valve sclerosis without stenosis. The inferior vena cava is mildly dilated Appreciate cardiology input and recommendation Diuresing enough and the swelling is much improved Lasix doses have been increased Diuresing enough and feeling a lot better We will continue his prehospital medications Start torsemide 10 mg daily for diuresis LBBB Noted to have first-degree AV block in EKG Otherwise normal sinus rhythm No atrial fibrillation We have biventricular device today for better cardiac function Status post pacer defibrillator placement with re-synchronization therapy with his bundle lead Feels better following the procedure (2) Ischemic cardiomyopathy: ECHO::Moderate sized inferior, inferolateral wall motion abnormality with moderate hypokinesis of the segments EF of 35 to 40% He is going to have a pacemaker for better cardiac output and cardiac function As above (3) COPD (chronic obstructive pulmonary disease): History of COPD Does not have any acute exacerbation at this time We will continue current medications (4) CAD (coronary artery disease), [place] coronary artery: No acute cardiac symptoms except CHF (5) Diabetes mellitus, type 2: Hold metformin for now SSI DVT prophylaxis Has been on IV heparin which should be continued for 24 hours Prophylactic heparin following that If he remains hemodynamically stable he will be discharged tomorrow Admission and Anticipated Discharge Date Admission Date: March 19, 2020 Subjective The patient was seen and examined in telemetry unit He was admitted yesterday with increasing shortness of breath and weight gain with history of CAD and diastolic heart failure He has been diuresing well with intravenous Lasix and feels a lot better this morning Denies any chest pain and/or palpitation 03/21/2020 Patient was seen and examined in telemetry unit He remains stable and he is swelling of the legs and scrotum have improved a lot Denies any shortness of breath at rest He is ready for the pacemaker placement as all discussed by the user experience architect 03/22/2020 The patient was seen and examined in telemetry unit He has been feeling much better and denies any shortness of breath at rest His leg swelling are getting better to 03/23/2020 The patient was seen and examined in telemetry unit He has been feeling a lot better and denies to have any shortness of breath or pain at rest He has been ambulating in the room without any difficulties Going to have dual-chamber pacemaker placed. 03/24/2020 The patient was seen and examined in telemetry unit Status post pacer defibrillator placement with re-synchronization therapy with his bundle lead Denies any significant pain in that area Denies any shortness of breath at rest Review of Systems Review of Systems: All systems reviewed and are unremarkable except as noted below Constitutional: + weakness and + weight gain Respiratory: + dyspnea on exertion; no dyspnea Physical Exam Physical Exam: Walking around in room without any acute symptoms Constitutional: well developed, well nourished and + obese; no acute distress and not ill appearing Eyes: PERRL, conjunctivae normal, anicteric sclerae ENMT: external ear and nose normal, oropharynx normal Neck: trachea midline, no thyromegaly Respiratory: normal respiratory effort; no respiratory distress Auscultation: + diminished lung sounds and + crackles (Minimal crackles at the bases) Cardiovascular: Rate/Rhythm: regular rate and regular rhythm Heart Sounds: no murmur Extremities: + edema (Bilateral leg edema 1-2+-gradually improving) Gastrointestinal (Abdomen): Inspection/Auscultation: abdomen normal to inspection; abdomen not distended Percussion/Palpation: abdomen soft; abdomen nontender Musculoskeletal: No acute arthritis involving any joints Neurologic: moves all extremities; no focal motor deficits Alert, awake and oriented x3 Lymphatic: no cervical or axillary lymphadenopathy Results & Data Results & Data ([facility]) Vital Signs (Past 12 Hours) Vital Signs Temp Pulse Pulse Resp BP Pulse Ox 03/24/20 15:38 37.0 C 63 18 139/71 96 03/24/20 14:23 69 03/24/20 12:15 36.9 C 69 18 146/76 H 95 03/24/20 08:00 63 03/24/20 07:51 36.8 C 74 18 118/70 96 Laboratory Results Short CBC 03/24/20 Range/Units 06:12 WBC 9.41 (4.8-10.8) K/uL Hgb 13.7 L (14.0-18.0) g/dL Hct 41.5 L (42-52) % Plt Count 329 (130-400) K/uL BMP 03/24/20 06:12 Sodium 140 Potassium 4.2 Chloride 103 Carbon Dioxide 32 BUN 19 H Creatinine 0.90 Glucose 70 Calcium 8.3 L Medications Administered Current Inpatient Medications Acetaminophen (Tylenol) 650 mg PO Q4H PRN PRN Reason: Pain or Fever Stop: 04/18/20 21:23 Albuterol (Ventolin Hfa) 2 puffs INH Q4H PRN PRN Reason: Shortness Of Breath Or Wheezing Stop: 04/18/20 21:23 Last Admin: 03/21/20 00:22 Dose: 2 puffs Documented by: Aspirin (Ecotrin Ectab) 81 mg PO DAILY AFIA Stop: 04/19/20 08:59 Last Admin: 03/24/20 08:19 Dose: 81 mg Documented by: Atorvastatin Calcium (Lipitor) 80 mg PO DAILY AFIA Stop: 04/19/20 08:59 Last Admin: 03/24/20 08:19 Dose: 80 mg Documented by: Clopidogrel Bisulfate (Plavix) 75 mg PO DAILY AFIA Stop: 04/19/20 08:59 Last Admin: 03/24/20 08:17 Dose: 75 mg Documented by: Dextrose (Dextrose 50%) 25 - 50 ml IV UD PRN; Protocol PRN Reason: Hypoglycemia Protocol Stop: 04/18/20 21:44 Escitalopram Oxalate (Lexapro Tab) 20 mg PO DAILY AFIA Stop: 04/19/20 08:59 Last Admin: 03/24/20 08:19 Dose: 20 mg Documented by: Fenofibrate (Tricor) 145 mg PO DAILY AFIA Stop: 04/19/20 08:59 Last Admin: 03/24/20 08:18 Dose: 145 mg Documented by: Fluticasone Propionate (Flonase) 2 sprays NA DAILY AFIA Stop: 04/19/20 08:59 Last Admin: 03/24/20 08:20 Dose: Not Given Documented by: Fluticasone/Vilanterol (Breo Ellipta 100/25 Mcg Inh) 1 puffs INH DAILY FAIA Stop: 04/19/20 08:59 Last Admin: 03/24/20 08:20 Dose: Not Given Documented by: Glucagon (Glucagen) 1 mg IM UD PRN; Protocol PRN Reason: Hypoglycemia Protocol Stop: 04/18/20 21:44 Glucose (Glucose 40%) 15 - 30 gm PO UD PRN; Protocol PRN Reason: Hypoglycemia Protocol Stop: 04/18/20 21:44 Glucose (Dex4 Glucose) 4 - 8 tabs PO UD PRN; Protocol PRN Reason: Hypoglycemia Protocol Stop: 04/18/20 21:44 Heparin Sodium (Porcine) (Heparin Sodium (Porcine)) 5,000 units SQ Q12 AFIA Stop: 04/21/20 20:59 Last Admin: 03/24/20 08:11 Dose: 5,000 units Documented by: Furosemide 40 mg/ Syringe 4 mls @ 4 mls/min IV TID AFIA Stop: 04/20/20 13:59 Last Admin: 03/22/20 14:44 Dose: 4 mls/min Documented by: Insulin Aspart (Novolog Flexpen) 0 units SC ACHS [facility] Stop: 04/18/20 22:59 Last Admin: 03/24/20 17:08 Dose: 6 units Documented by: Insulin Glargine (Lantus Solostar Pen) 25 units SQ QAM [facility]IA Stop: 04/19/20 08:59 Last Admin: 03/24/20 08:10 Dose: 25 units Documented by: Insulin Glargine (Lantus Solostar Pen) 30 units SQ HS [facility] Stop: 04/18/20 22:59 Last Admin: 03/23/20 21:03 Dose: 30 units Documented by: Isosorbide Dinitrate (Isordil) 10 mg PO BID@0700,1200 [facility] Stop: 04/19/20 06:59 Last Admin: 03/24/20 11:58 Dose: 10 mg Documented by: Loratadine (Claritin) 10 mg PO DAILY PRN PRN Reason: Allergy Symptoms Stop: 04/18/20 21:23 Metoprolol Succinate (Toprol Xl) 25 mg PO DAILY [facility] Stop: 04/19/20 08:59 Last Admin: 03/24/20 08:18 Dose: 25 mg Documented by: Miscellaneous (Order Awaiting Action) 1 ea N/A QS [facility] Stop: 04/19/20 00:00 Last Admin: 03/24/20 16:06 Dose: Not Given Documented by: Miscellaneous (Order Awaiting Action) 1 ea N/A QS [facility] Stop: 04/19/20 00:00 Last Admin: 03/24/20 16:06 Dose: Not Given Documented by: Miscellaneous (Carbohydrates For Hypoglycemia) 15 - 30 gm PO UD PRN PRN Reason: Hypoglycemia Treatment Stop: 04/18/20 21:44 Miscellaneous Information (Nursing To Pharmacy Communication) 1 ea N/A DAILY@0900 PRN PRN Reason: NURSING COMMUNICATION Stop: 04/22/20 16:29 Nitroglycerin (Nitrostat) 0.4 mg SL UD PRN PRN Reason: Chest Pain Stop: 04/18/20 21:23 Ondansetron HCl (Zofran) 4 mg IV Q6H PRN PRN Reason: Nausea Stop: 04/18/20 21:23 Oxycodone/Acetaminophen (Percocet 5mg/325mg) 1 - 2 tab PO Q6H PRN PRN Reason: Moderate-Severe Pain Stop: 04/06/20 16:25 Last Admin: 03/24/20 17:18 Dose: 2 tab Documented by: Polyethylene Glycol (Miralax Powder Packet) 17 gm PO DAILY PRN PRN Reason: Constipation Stop: 04/18/20 21:23 Potassium Chloride (Klor-Con M20) 20 meq PO TID [facility]IA Stop: 04/20/20 13:59 Last Admin: 03/24/20 14:52 Dose: 20 meq Documented by: Sacubitril/Valsartan (Entresto 24/26mg) 1 tab PO BID [facility]IA Stop: 04/18/20 21:59 Last Admin: 03/24/20 08:20 Dose: 1 tab Documented by: Spironolactone (Aldactone) 12.5 mg PO DAILY [facility]IA Stop: 04/19/20 08:59 Last Admin: 03/24/20 08:20 Dose: 12.5 mg Documented by: Torsemide (Demadex) 10 mg PO QAM [facility]IA Stop: 04/23/20 14:44 Last Admin: 03/24/20 16:05 Dose: 10 mg Documented by: Trazodone HCl (Desyrel) 50 mg PO HS [facility]IA Stop: 04/18/20 22:59 Last Admin: 03/23/20 21:02 Dose: 50 mg Documented by: (1) CAD (coronary artery disease), [place] coronary artery [place] vs. transplanted heart: [place] heart Associated angina: angina presence unspecified Qualified Code(s): I25.10 - Atherosclerotic heart disease of [place] coronary artery without angina pectoris
[2020-03-24] MEDS ORDERED: NON-FORMULARY MEDICATION (Mometasone-Formoterol [Dulera] 2 PUFFS) INH SCH (21:00)
[2020-03-24] MEDS: TRAZODONE HCL 50 MG TAB PO SCH (21:22)
[2020-03-25] MEDS: INSULIN ASPART 100 UNITS/ML 3 ML PEN SC SCH ×4 (08:09→21:06)
[2020-03-25] MEDS: INSULIN GLARGINE SOLOSTAR 100 UNITS/ML 3 ML PEN SQ SCH ×2 (08:10→21:45)
[2020-03-25] MEDS: HEPARIN SOD 5,000 UNIT/0.5 ML VIAL SQ SCH ×2 (08:11→21:03)
[2020-03-25] MEDS: SACUBITRIL-VALSARTAN 24-26 MG TAB PO SCH ×2 (08:15→21:04)
[2020-03-25] MEDS: ISOSORBIDE DINITRATE 10 MG TAB PO SCH ×2 (08:15→12:02)
[2020-03-25] MEDS: CLOPIDOGREL BISULFATE 75 MG TAB PO SCH (08:16)
[2020-03-25] MEDS: ESCITALOPRAM OXALATE 20 MG TAB PO SCH (08:16)
[2020-03-25] MEDS: POTASSIUM CHLORIDE 20 MEQ TABCR PO SCH ×3 (08:16→21:03)
[2020-03-25] MEDS: ATORVASTATIN 40 MG TAB PO SCH (08:17)
[2020-03-25] MEDS: TORSEMIDE 10 MG TAB PO SCH (08:17)
[2020-03-25] MEDS: ASPIRIN 81 MG ECTAB PO SCH (08:17)
[2020-03-25] MEDS: METOPROLOL SUCC 25MG EXT REL TAB PO SCH (08:18)
[2020-03-25] MEDS: FENOFIBRATE NANOCRYSTALLIZED 145 MG TABLET PO SCH (08:18)
[2020-03-25] MEDS: SPIRONOLACTONE 12.5 MG TAB PO SCH (08:18)
[2020-03-25] MEDS: FLUTICASONE PROPIONATE NA SPR 16 GM BTL SCH (08:19)
[2020-03-25] MEDS: FLUTICASONE/VILANTEROL 100/25MCG 14 PUFFS/INHALER INH SCH (08:19)
[2020-03-25] MEDS: OXYCODONE/ACETAMINOPHEN 5mg/325mg TAB PO PRN ×2 (08:40→13:47)
[2020-03-25] MEDS ORDERED: TORSEMIDE 10 MG TAB PO SCH (09:00)
--- NOTE | 2020-03-25 12:47 | Hospitalist Progress Note ---
Date of Service March 25, 2020 Assessment & Plan (1) Acute on chronic congestive heart failure: Presented with shortness of breath and weight gain Noted to have acute on chronic CHF Has been diuresing well with intravenous Lasix Echo of the heart showed-normal LV size with mild concentric LV hypertrophy and septal motion is consistent with conduction abnormality. There is a moderate sized inferior inferolateral wall motion abnormality with moderate hypokinesis of the segments. EF of 35 to 40%. Diastolic dysfunction grade 3 consistent with marked congestive heart failure. Aortic valve sclerosis without stenosis. The inferior vena cava is mildly dilated Appreciate cardiology input and recommendation Diuresing enough and the swelling is much improved Clinically much improved Switched to p.o. diuretics Continue prehospital medications with patient on good guideline directed CHF me dical regimen including beta-mckayla, Entresto, spironolactone Resume home torsemide 10 mg daily for diuresis Continue spironolactone 12.5 mg p.o. daily LBBB Noted to have first-degree AV block in EKG Otherwise normal sinus rhythm No atrial fibrillation Status post pacer defibrillator placement with re-synchronization therapy with his bundle lead on 03/23/20 Feels better following the procedure (2) Ischemic cardiomyopathy: ECHO::Moderate sized inferior, inferolateral wall motion abnormality with moderate hypokinesis of the segments EF of 35 to 40% s/p pacemaker for better cardiac output and cardiac function As above (3) COPD (chronic obstructive pulmonary disease): History of COPD Does not have any acute exacerbation at this time We will continue current medications (4) CAD (coronary artery disease), [place] coronary artery: No acute cardiac symptoms except CHF (5) Diabetes mellitus, type 2: Hold metformin for now SSI DVT prophylaxis Has been on IV heparin which should be continued for 24 hours Prophylactic heparin following that If he remains hemodynamically stable he will be discharged tomorrow Admission and Anticipated Discharge Date Admission Date: March 19, 2020 Subjective Status post pacer defibrillator implantation with resynchronization therapy with His bundle lead on 03/23/2020 Patient currently is lying in bed, in no acute distress, breathing comfortably on room air. He is complaining however of incision pain today. He also states that the pain medications that are ordered PRN for him are not very helpful. He says that he does not feel ready to go home yet. Denies any fevers, chills, chest pain, palpitations, shortness of breath, a bdominal pain, vomiting. He says that he is able to ambulate to the bathroom or hallway without any dizziness, lightheadedness, shortness of breath or chest pain. Review of Systems Review of Systems: All systems reviewed & are unremarkable except as noted in HPI & below Constitutional: no fever and no chills Respiratory: no cough and no dyspnea Cardiovascular: no chest pain and no palpitations Gastrointestinal: no abdominal pain and no vomiting Physical Exam Physical Exam: Physical Exam: Elderly obese male, lying in bed, in no acute distress Constitutional: well developed, well nourished and + obese; no acute distress and not ill appearing Eyes: PERRL, EOMI, conjunctivae normal, anicteric sclerae ENMT: external ear and nose normal, oropharynx normal Neck: trachea midline, no thyromegaly Respiratory: normal respiratory effort; no respiratory distress Auscultation: + diminished lung sounds and + crackles (Minimal crackles at the bases) Cardiovascular: Rate/Rhythm: regular rate and regular rhythm Heart Sounds: no murmur Extremities: + edema (Bilateral LE trace edema, improved) Gastrointestinal (Abdomen): Inspection/Auscultation: abdomen normal to inspection; abdomen not distended Percussion/Palpation: abdomen soft; abdomen nontender Musculoskeletal: No acute arthritis involving any joints, moves extremities spontaneously Neurologic: Alert, awake and oriented x3, answers questions appropriately, moves extremities spontaneously Results & Data Results & Data ([facility]) Vital Signs (Past 12 Hours) Vital Signs Temp Pulse Pulse Resp BP BP Pulse Ox 03/25/20 12:09 36.6 C 66 20 115/69 92 03/25/20 08:21 36.7 C 74 19 121/70 92 03/25/20 07:00 64 03/25/20 03:46 36.4 C L 56 L 18 118/72 93 03/25/20 00:43 62 (1) CAD (coronary artery disease), [place] coronary artery [place] vs. transplanted heart: [place] heart Associated angina: angina presence unspecified Qualified Code(s): I25.10 - Atherosclerotic heart disease of [place] coronary artery without angina pectoris
[2020-03-25 12:49] LABS: Hematocrit (blood only) 42.2 % (42-52); Hemoglobin 13.5 g/dL (14.0-18.0); Mean Corpuscular Hemoglobin 30.4 pg (25-34); Mean Platelet Volume 9.8 fL (7.4-10.4); Platelet Count 322 K/uL (130-400); RDW Coefficient of Variation 13.6 % (11.5-14.5); RDW Standard Deviation 47.4 fL (36.4-46.3); Red Blood Count 4.44 M/uL (4.7-6.1); White Blood Count 8.02 K/uL (4.8-10.8)
[2020-03-25 13:30] LABS: BUN Creatinine Ratio 19.8 (10-20); Calcium 8.1 mg/dl (8.5-10.1); Creatinine Clr Calc Pharmacy 81.8 ml/min; Est GFR (African American) 93.4; Est GFR (Non-African American) 80.6; Magnesium 1.9 mg/dl (1.8-2.4); Potassium 4.5 mmol/L (3.5-5.1)
--- NOTE | 2020-03-25 17:52 | Cardiology Progress Note ---
Date of Service March 25, 2020 Assessment & Plan (1) Acute on chronic congestive heart failure: Patient presents with gradual decompensated biventricular heart failure right greater than left with increasing lower extremity edema abdominal bloating and scrotal edema. No acute precipitant. Patient per description compliant with medications. Now responding to IV diuretics Review of EKGs and presentation reveals sinus rhythm with first-degree AV block (no atrial fibrillation) Plan: Continue prehospital medications with patient on good guideline directed CHF medical regimen including beta-mckayla, Entresto, spironolactone Will resume diuretic with torsemide 10 mg daily Patient underwent successful pacer defibrillator implantation with resynchronization therapy with His bundle lead Will increase activities and if hemodynamically and arrhythmic stable discharge in a.m. (2) Ischemic cardiomyopathy: EF approximately 35% on current study (3) Left bundle branch block: (4) Status post coronary artery bypass grafting: (5) COPD (chronic obstructive pulmonary disease): Subjective Patient seen and examined, chart, medications, telemetry reviewed. Patient had incisional pain earlier today but otherwise has been feeling well feels possibly stronger already. No dizziness or lightheadedness. Weight down 8 kg from admission Physical Exam Constitutional: WD/WN, vitals as above Eyes: PERRL, conjunctivae normal, anicteric sclerae ENMT: external ear and nose normal, oropharynx normal Neck: trachea midline, no thyromegaly Respiratory: normal respiratory effort, lungs clear to auscultation Cardiovascular: Rate/Rhythm: regular rate and regular rhythm Heart Sounds: normal S1 and normal S2; no gallop and no murmur Palpation: normal PMI Vessels: normal carotid upstroke and radial pulses present; no JVD and no carotid bruit Extremities: no edema Chest (Breasts): Chest: + pacemaker (Site healing well without hematoma) Gastrointestinal (Abdomen): normal bowel sounds, soft, nontender, no hepatosplenomegaly Musculoskeletal: no cyanosis or clubbing, extremities motor strength 5/5 Skin: no rashes, warm and dry Neurologic: PERRL, EOMI, accommodation nl, no face palsy, no dysarthria Psychiatric: A+Ox3, euthymic affect Results & Data Vital Signs (Past 12 Hours) Vital Signs Temp Pulse Pulse Resp BP BP Pulse Ox 03/25/20 17:16 65 03/25/20 15:29 36.6 C 63 20 121/58 L 92 03/25/20 12:09 36.6 C 66 20 115/69 92 03/25/20 08:21 36.7 C 74 19 121/70 92 03/25/20 07:00 64
[2020-03-25] MEDS: TRAZODONE HCL 50 MG TAB PO SCH (21:04)
[2020-03-26] MEDS: ISOSORBIDE DINITRATE 10 MG TAB PO SCH (06:04)
[2020-03-26 06:43] LABS: Hematocrit (blood only) 42.9 % (42-52); Hemoglobin 13.8 g/dL (14.0-18.0); Mean Corpuscular Hemoglobin 30.5 pg (25-34); Mean Corpuscular Hgb Conc 32.2 g/dL (32-36); Mean Corpuscular Volume 94.9 fL (80-100); Mean Platelet Volume 9.9 fL (7.4-10.4); Platelet Count 318 K/uL (130-400); RDW Coefficient of Variation 13.7 % (11.5-14.5); RDW Standard Deviation 47.1 fL (36.4-46.3); Red Blood Count 4.52 M/uL (4.7-6.1); White Blood Count 8.28 K/uL (4.8-10.8)
[2020-03-26 06:54] LABS: BUN Creatinine Ratio 23.9 (10-20); Calcium 7.8 mg/dl (8.5-10.1); Creatinine Clr Calc Pharmacy 89.5 ml/min; Est GFR (Non-African American) 86.3; Magnesium 1.9 mg/dl (1.8-2.4); Potassium 4.5 mmol/L (3.5-5.1)
[2020-03-26] MEDS: INSULIN ASPART 100 UNITS/ML 3 ML PEN SC SCH (07:57)
[2020-03-26] MEDS: CLOPIDOGREL BISULFATE 75 MG TAB PO SCH (08:00)
[2020-03-26] MEDS: FENOFIBRATE NANOCRYSTALLIZED 145 MG TABLET PO SCH (08:00)
[2020-03-26] MEDS: SACUBITRIL-VALSARTAN 24-26 MG TAB PO SCH (08:01)
[2020-03-26] MEDS: SPIRONOLACTONE 12.5 MG TAB PO SCH (08:01)
[2020-03-26] MEDS: ATORVASTATIN 40 MG TAB PO SCH (08:02)
[2020-03-26] MEDS: ASPIRIN 81 MG ECTAB PO SCH (08:02)
[2020-03-26] MEDS: ESCITALOPRAM OXALATE 20 MG TAB PO SCH (08:02)
[2020-03-26] MEDS: METOPROLOL SUCC 25MG EXT REL TAB PO SCH (08:02)
[2020-03-26] MEDS: POTASSIUM CHLORIDE 20 MEQ TABCR PO SCH (08:03)
[2020-03-26] MEDS: HEPARIN SOD 5,000 UNIT/0.5 ML VIAL SQ SCH (08:03)
[2020-03-26] MEDS: INSULIN GLARGINE SOLOSTAR 100 UNITS/ML 3 ML PEN SQ SCH (08:03)
[2020-03-26] MEDS: FLUTICASONE PROPIONATE NA SPR 16 GM BTL SCH (08:04)
[2020-03-26] MEDS: FLUTICASONE/VILANTEROL 100/25MCG 14 PUFFS/INHALER INH SCH (08:04)
[2020-03-26] MEDS: TORSEMIDE 10 MG TAB PO SCH (08:04)
--- NOTE | 2020-03-26 08:07 | Hospitalist Progress Note ---
Date of Service March 26, 2020 Assessment & Plan (1) Acute on chronic congestive heart failure: Presented with shortness of breath and weight gain Noted to have acute on chronic CHF Has been diuresing well with intravenous Lasix Echo of the heart showed-normal LV size with mild concentric LV hypertrophy and septal motion is consistent with conduction abnormality. There is a moderate sized inferior inferolateral wall motion abnormality with moderate hypokinesis of the segments. EF of 35 to 40%. Diastolic dysfunction grade 3 consistent with marked congestive heart failure. Aortic valve sclerosis without stenosis. The inferior vena cava is mildly dilated Appreciate cardiology input and recommendation Diuresing well and the swelling is much improved Clinically much improved Switched to p.o. diuretics Continue pre-hospital medications with patient on good guideline directed CHF medical regimen including beta-mckayla, Entresto, spironolactone Resume home torsemide 10 mg daily for diuresis Continue spironolactone 12.5 mg p.o. daily LBBB Noted to have first-degree AV block in EKG Otherwise normal sinus rhythm No atrial fibrillation Status post pacer defibrillator placement with re-synchronization therapy with his bundle lead on 03/23/20 Feels better following the procedure (2) Ischemic cardiomyopathy: ECHO::Moderate sized inferior, inferolateral wall motion abnormality with moderate hypokinesis of the segments EF of 35 to 40% s/p pacemaker for better cardiac output and cardiac function As above (3) COPD (chronic obstructive pulmonary disease): History of COPD Does not have any acute exacerbation at this time We will continue current medications (4) CAD (coronary artery disease), [place] coronary artery: No acute cardiac symptoms except CHF (5) Diabetes mellitus, type 2: Hold metformin for now SSI DVT prophylaxis Has been on IV heparin which should be continued for 24 hours Prophylactic heparin following that If he remains hemodynamically stable he will be discharged tomorrow Admission and Anticipated Discharge Date Admission Date: March 19, 2020 Subjective Patient feels well, no acute events overnight. Denies any significant pain at incision site. Denies any chest pain or shortness of breath. He is walking in hallways without any dizziness or lightheadedness. Review of Systems Review of Systems: All systems reviewed & are unremarkable except as noted in HPI & below Constitutional: no fever and no chills Respiratory: no cough and no dyspnea Cardiovascular: no chest pain and no palpitations Gastrointestinal: no abdominal pain, no nausea and no vomiting Physical Exam Physical Exam: Physical Exam: Elderly obese male, lying in bed, in no acute distress Constitutional: well developed, well nourished and + obese; no acute distress and not ill appearing Eyes: PERRL, EOMI, conjunctivae normal, anicteric sclerae ENMT: external ear and nose normal, oropharynx normal Neck: trachea midline, no thyromegaly Respiratory: normal respiratory effort; no respiratory distress Auscultation: + diminished lung sounds and + minimal crackles (at the bases) Cardiovascular: Rate/Rhythm: regular rate and regular rhythm Heart Sounds: no murmur Extremities: + edema (Bilateral LE trace edema, improved) Gastrointestinal (Abdomen): Inspection/Auscultation: abdomen normal to inspection; abdomen not distended Percussion/Palpation: abdomen soft; abdomen nontender Musculoskeletal: No acute arthritis involving any joints, moves extremities spontaneously Neurologic: Alert, awake and oriented x3, answers questions appropriately, moves extremities spontaneously Results & Data Results & Data ([facility]) Vital Signs (Past 12 Hours) Vital Signs Temp Pulse Resp BP Pulse Ox 03/26/20 07:48 36.6 C 49 L 18 133/62 93 03/26/20 04:28 36.4 C L 66 18 105/60 90 Laboratory Results 03/26/20 03/26/20 03/26/20 Range/Units 07:42 06:03 04:44 WBC 8.28 (4.8-10.8) K/uL RBC 4.52 L (4.7-6.1) M/uL Hgb 13.8 L (14.0-18.0) g/dL Hct 42.9 (42-52) % MCV 94.9 (80-100) fL MCH 30.5 (25-34) pg MCHC 32.2 (32-36) g/dL RDW Std Deviation 47.1 H (36.4-46.3) fL RDW Coeff of Shellie 13.7 (11.5-14.5) % Plt Count 318 (130-400) K/uL MPV 9.9 (7.4-10.4) fL Sodium 143 (136-145) mmol/L Potassium 4.5 (3.5-5.1) mmol/L Chloride 108 H (98-107) mmol/L Carbon Dioxide 30 (21-32) mmol/L Anion Gap 5.0 (3-11) BUN 20 H (7-18) mg/dl Creatinine 0.84 (0.6-1.4) mg/dl Est Cr Clr Drug Dosing 89.5 ml/min Est GFR ( Amer) 100.0 Est GFR (Non-Af Amer) 86.3 BUN/Creatinine Ratio 23.9 H (10-20) Glucose 117 H (70-99) mg/dl POC Glucose 121 H (70-99) mg/dl Calcium 7.8 L (8.5-10.1) mg/dl Magnesium 1.9 (1.8-2.4) mg/dl 03/25/20 03/25/20 03/25/20 Range/Units 20:36 16:22 12:39 WBC (4.8-10.8) K/uL RBC (4.7-6.1) M/uL Hgb (14.0-18.0) g/dL Hct (42-52) % MCV (80-100) fL MCH (25-34) pg MCHC (32-36) g/dL RDW Std Deviation (36.4-46.3) fL RDW Coeff of Shellie (11.5-14.5) % Plt Count (130-400) K/uL MPV (7.4-10.4) fL Sodium 141 (136-145) mmol/L Potassium 4.5 (3.5-5.1) mmol/L Chloride 105 (98-107) mmol/L Carbon Dioxide 32 (21-32) mmol/L Anion Gap 4.0 (3-11) BUN 18 (7-18) mg/dl Creatinine 0.93 (0.6-1.4) mg/dl Est Cr Clr Drug Dosing 81.8 ml/min Est GFR ( Amer) 93.4 Est GFR (Non-Af Amer) 80.6 BUN/Creatinine Ratio 19.8 (10-20) Glucose 143 H (70-99) mg/dl POC Glucose 113 H 74 (70-99) mg/dl Calcium 8.1 L (8.5-10.1) mg/dl Magnesium 1.9 (1.8-2.4) mg/dl 03/25/20 03/25/20 03/25/20 Range/Units 12:39 11:31 07:32 WBC 8.02 (4.8-10.8) K/uL RBC 4.44 L (4.7-6.1) M/uL Hgb 13.5 L (14.0-18.0) g/dL Hct 42.2 (42-52) % MCV 95.0 (80-100) fL MCH 30.4 (25-34) pg MCHC 32.0 (32-36) g/dL RDW Std Deviation 47.4 H (36.4-46.3) fL RDW Coeff of Shellie 13.6 (11.5-14.5) % Plt Count 322 (130-400) K/uL MPV 9.8 (7.4-10.4) fL Sodium (136-145) mmol/L Potassium (3.5-5.1) mmol/L Chloride (98-107) mmol/L Carbon Dioxide (21-32) mmol/L Anion Gap (3-11) BUN (7-18) mg/dl Creatinine (0.6-1.4) mg/dl Est Cr Clr Drug Dosing ml/min Est GFR ( Amer) Est GFR (Non-Af Amer) BUN/Creatinine Ratio (10-20) Glucose (70-99) mg/dl POC Glucose 122 H 101 H (70-99) mg/dl Calcium (8.5-10.1) mg/dl Magnesium (1.8-2.4) mg/dl Medications Administered Current Inpatient Medications Acetaminophen (Tylenol) 650 mg PO Q4H PRN PRN Reason: Pain or Fever Stop: 04/18/20 21:23 Albuterol (Ventolin Hfa) 2 puffs INH Q4H PRN PRN Reason: Shortness Of Breath Or Wheezing Stop: 04/18/20 21:23 Last Admin: 03/21/20 00:22 Dose: 2 puffs Documented by: Aspirin (Ecotrin Ectab) 81 mg PO DAILY [facility] Stop: 04/19/20 08:59 Last Admin: 03/26/20 08:02 Dose: 81 mg Documented by: Atorvastatin Calcium (Lipitor) 80 mg PO DAILY [facility] Stop: 04/19/20 08:59 Last Admin: 03/26/20 08:02 Dose: 80 mg Documented by: Clopidogrel Bisulfate (Plavix) 75 mg PO DAILY [facility] Stop: 04/19/20 08:59 Last Admin: 03/26/20 08:00 Dose: 75 mg Documented by: Dextrose (Dextrose 50%) 25 - 50 ml IV UD PRN; Protocol PRN Reason: Hypoglycemia Protocol Stop: 04/18/20 21:44 Escitalopram Oxalate (Lexapro Tab) 20 mg PO DAILY [facility] Stop: 04/19/20 08:59 Last Admin: 03/26/20 08:02 Dose: 20 mg Documented by: Fenofibrate (Tricor) 145 mg PO DAILY [facility] Stop: 04/19/20 08:59 Last Admin: 03/26/20 08:00 Dose: 145 mg Documented by: Fluticasone Propionate (Flonase) 2 sprays NA DAILY [facility] Stop: 04/19/20 08:59 Last Admin: 03/26/20 08:04 Dose: Not Given Documented by: Fluticasone/Vilanterol (Breo Ellipta 100/25 Mcg Inh) 1 puffs INH DAILY [facility] Stop: 04/19/20 08:59 Last Admin: 03/26/20 08:04 Dose: Not Given Documented by: Glucagon (Glucagen) 1 mg IM UD PRN; Protocol PRN Reason: Hypoglycemia Protocol Stop: 04/18/20 21:44 Glucose (Glucose 40%) 15 - 30 gm PO UD PRN; Protocol PRN Reason: Hypoglycemia Protocol Stop: 04/18/20 21:44 Glucose (Dex4 Glucose) 4 - 8 tabs PO UD PRN; Protocol PRN Reason: Hypoglycemia Protocol Stop: 04/18/20 21:44 Heparin Sodium (Porcine) (Heparin Sodium (Porcine)) 5,000 units SQ Q12 [facility] Stop: 04/21/20 20:59 Last Admin: 03/26/20 08:03 Dose: 5,000 units Documented by: Insulin Aspart (Novolog Flexpen) 0 units SC ACHS [facility] Stop: 04/18/20 22:59 Last Admin: 03/26/20 07:57 Dose: 5 units Documented by: Insulin Glargine (Lantus Solostar Pen) 25 units SQ QAM [facility] Stop: 04/19/20 08:59 Last Admin: 03/26/20 08:03 Dose: 25 units Documented by: Insulin Glargine (Lantus Solostar Pen) 30 units SQ HS [facility] Stop: 04/18/20 22:59 Last Admin: 03/25/20 21:45 Dose: 30 units Documented by: Isosorbide Dinitrate (Isordil) 10 mg PO BID@0700,1200 [facility] Stop: 04/19/20 06:59 Last Admin: 03/26/20 06:04 Dose: 10 mg Documented by: Loratadine (Claritin) 10 mg PO DAILY PRN PRN Reason: Allergy Symptoms Stop: 04/18/20 21:23 Metoprolol Succinate (Toprol Xl) 25 mg PO DAILY [facility] Stop: 04/19/20 08:59 Last Admin: 03/26/20 08:02 Dose: 25 mg Documented by: Miscellaneous (Order Awaiting Action) 1 ea N/A QS [facility] Stop: 04/19/20 00:00 Last Admin: 03/26/20 07:58 Dose: Not Given Documented by: Miscellaneous (Order Awaiting Action) 1 ea N/A QS [facility] Stop: 04/19/20 00:00 Last Admin: 03/26/20 07:58 Dose: Not Given Documented by: Miscellaneous (Carbohydrates For Hypoglycemia) 15 - 30 gm PO UD PRN PRN Reason: Hypoglycemia Treatment Stop: 04/18/20 21:44 Miscellaneous Information (Nursing To Pharmacy Communication) 1 ea N/A DAILY@0900 PRN PRN Reason: NURSING COMMUNICATION Stop: 04/22/20 16:29 Nitroglycerin (Nitrostat) 0.4 mg SL UD PRN PRN Reason: Chest Pain Stop: 04/18/20 21:23 Ondansetron HCl (Zofran) 4 mg IV Q6H PRN PRN Reason: Nausea Stop: 04/18/20 21:23 Oxycodone/Acetaminophen (Percocet 5mg/325mg) 1 - 2 tab PO Q4HWA PRN PRN Reason: Moderate-Severe Pain Stop: 04/06/20 16:25 Last Admin: 03/25/20 13:47 Dose: 2 tab Documented by: Polyethylene Glycol (Miralax Powder Packet) 17 gm PO DAILY PRN PRN Reason: Constipation Stop: 04/18/20 21:23 Potassium Chloride (Klor-Con M20) 20 meq PO TID [facility] Stop: 04/20/20 13:59 Last Admin: 03/26/20 08:03 Dose: 20 meq Documented by: Sacubitril/Valsartan (Entresto 24/26mg) 1 tab PO BID [facility] Stop: 04/18/20 21:59 Last Admin: 03/26/20 08:01 Dose: 1 tab Documented by: Spironolactone (Aldactone) 12.5 mg PO DAILY [facility] Stop: 04/19/20 08:59 Last Admin: 03/26/20 08:01 Dose: 12.5 mg Documented by: Torsemide (Demadex) 10 mg PO QAM [facility] Stop: 04/23/20 14:44 Last Admin: 03/26/20 08:04 Dose: 10 mg Documented by: Trazodone HCl (Desyrel) 50 mg PO HS [facility] Stop: 04/18/20 22:59 Last Admin: 03/25/20 21:04 Dose: 50 mg Documented by: (1) CAD (coronary artery disease), [place] coronary artery [place] vs. transplanted heart: [place] heart Associated angina: angina presence unspecified Qualified Code(s): I25.10 - Atherosclerotic heart disease of [place] coronary artery without angina pectoris
--- NOTE | 2020-03-26 09:11 | Discharge Summary ---
Date of Service March 26, 2020 Admission HPI Per Admitting Provider This is a 74-year-old male with past medical history significant for type 2 diabetes, microalbuminuria diabetic nephropathy, hyperlipidemia, COPD, allergic rhinitis, paroxysmal atrial fibrillation, unstable angina, hypertension, left bundle branch block, left main coronary artery disease, CKD stage I, chronic diastolic CHF, obesity, tubular adenoma of colon, glaucoma, major depression, tobacco disorder, CAD, status post CABG, who lives alone, ambulates without any support. He comes because of progressive shortness of breath. He gets short of breath on exertion. He has also gained several pounds. He says his scrotum has become big and gaining weight; he could not quantify how much weight, but he says is gaining weight and he is having orthopnea, he could not sleep flat, which prompted him to come to the ER. Denies any chest pain, no cough, no fever, no chills, no nausea, no headache, no blurred vision, no earache, no sore throat. He has some runny nose from his allergies. No fevers, no abdominal pain. Normal bowel and bladder movements. No hematuria or burning micturition, no blood in stool or black stools. No rash. Admission Exam Per Admitting Provider GENERAL: The patient is morbidly obese, not in acute distress. VITAL SIGNS: Temperature 37.1, pulse 77, respiratory rate 20s, blood pressure 129/69, oxygen 95% on room air. HEENT: No pallor, no icterus. Pupils equal, round, reactive to light. NECK: No JVD, no neck masses, no carotid bruits. CARDIOVASCULAR: S1, S2 heard, irregular rhythm, no murmur. RESPIRATORY SYSTEM: Normal AP diameter. No accessory muscle use. Mild bibasilar crackles. No wheezing. ABDOMEN: Soft, bowel sounds present, nontender. No distention. CENTRAL NERVOUS SYSTEM: Cranial nerves II-XII grossly intact. Nonfocal. EXTREMITIES: Bilateral lower extremity gross edema present with mild erythema changes. Principal Diagnosis Acute on chronic congestive heart failure S/p pacer defibrillator implantation with resynchronization therapy with His bundle lead Discharge Exam Physical Exam: Elderly obese male, lying in bed, in no acute distress Constitutional: well developed, well nourished and + obese; no acute distress and not ill appearing Eyes: PERRL, EOMI, conjunctivae normal, anicteric sclerae ENMT: external ear and nose normal, oropharynx normal Neck: trachea midline, no thyromegaly Respiratory: normal respiratory effort; no respiratory distress Auscult ation: + diminished lung sounds and + minimal crackles (at the bases) Cardiovascular: Rate/Rhythm: regular rate and regular rhythm Heart Sounds: no murmur Extremities: + edema (Bilateral LE trace edema, improved) Gastrointestinal (Abdomen): Inspection/Auscultation: abdomen normal to inspection; abdomen not distended Percussion/Palpation: abdomen soft; abdomen nontender Musculoskeletal: No acute arthritis involving any joints, moves extremities spontaneously Neurologic: Alert, awake and oriented x3, answers questions appropriately, moves extremities spontaneously Discharge Data Allergies Allergy/AdvReac Type Severity Reaction Status Date / Time VELMA Inhibitors Allergy Unknown unknown Verified 03/19/20 20:00 Consultations 03/19/20 19:27 ED Decision to Admit Stat 03/19/20 21:24 Consult Case Management - Discharge Planning Routine 03/20/20 08:00 Consult Cardiology Routine 03/22/20 14:06 Consult Cardiology Routine Procedures Performed Operation Date: 03/23/20 13:15 Actual Procedures p ICD Insertion Single or Dual - Irma Hess DO s Venogram, Unilateral - Iram Hess DO s Bundle of his Recording - DO cuauhtemoc [place] Insertion Single Lead Only - Irma Hess DO Ordered Studies 03/23/20 13:15 EP Lab Images for PACS ONCE Hospital Course (1) Acute on chronic congestive heart failure: Presented with shortness of breath and weight gain Noted to have acute on chronic CHF Has been diuresing well with intravenous Lasix Echo of the heart showed-normal LV size with mild concentric LV hypertrophy and septal motion is consistent with conduction abnormality. There is a moderate sized inferior inferolateral wall motion abnormality with moderate hypokinesis of the segments. EF of 35 to 40%. Diastolic dysfunction grade 3 consistent with marked congestive heart failure. Aortic valve sclerosis without stenosis. The inferior vena cava is mildly dilated Appreciate cardiology input and recommendation Diuresing well and the swelling is much improved Clinically much improved Switched to p.o. diuretics Continue pre-hospital medications with patient on good guideline directed CHF medical regimen including beta-mckayla, Entresto, spironolactone Resume home torsemide 10 mg daily for diuresis Continue spironolactone 12.5 mg p.o. daily LBBB Noted to have first-degree AV block in EKG Otherwise normal sinus rhythm No atrial fibrillation Status post pacer defibrillator placement with re-synchronization therapy with his bundle lead on 03/23/20 Feels better following the procedure (2) Ischemic cardiomyopathy: ECHO::Moderate sized inferior, inferolateral wall motion abnormality with moderate hypokinesis of the segments EF of 35 to 40% s/p pacemaker for better cardiac output and cardiac function As above (3) COPD (chronic obstructive pulmonary disease): History of COPD Does not have any acute exacerbation at this time We will continue current medications (4) CAD (coronary artery disease), [place] coronary artery: No acute cardiac symptoms except CHF (5) Diabetes mellitus, type 2: Hold metformin for now SSI Total Time Total Time Spent Total Time Spent (In Minutes): 35 Total Time Includes: Examination of the Patient, Discharge Planning, Medication Reconciliation and Communication With Other Providers Discharge Plan Discharge Items Patient Disposition: Home - Home Health Services Reason For Visit: SOB/WEIGHT GAIN Discharge Diagnosis: Acute on chronic congestive heart failure S/p pacer defibrillator implantation with resynchronization therapy with His bundle lead Activity: As commented below Activity Comment: do not raise the left elbow over the left shoudler for 1 month Lifting: No more than 10 pounds Lifting Comment: do not lift more than 10 pounds with the left arm for 2 weeks Bathing: Keep incision dry Bathing Comment: keep dressing on and dry until wound check next week Sexual Activity: After two weeks Non-emergency contact: Electrical Instrument Repairer Call non-emergency contact if: you have any medication questions and your symptoms worsen Follow-up/Referrals: Viet Holly DO [Primary Care Provider] - 03/27/20 11:20 am (03/27/2020 11:20 AM Provider Viet Holly DO [facility] ) Diet: Heart Healthy and Low Sodium (2gm) Addtl Attending Provider Instructions: Device and wound check next week at [facility] MondayMarch 31 3pm Monitor your weight daily. Weigh yourself first thing in the morning, after using the bathroom. Write down those numbers and let your primary care doctor a nd your studio receptionist know within 1 week what your weight is. Addtl Automotive Production Worker Provider Instructions: Call your Primary Care doctor if any of the following symptoms or problems start or get worse: * Shortness of breath or difficulty breathing * Wake up at night short of breath * Chest pain * Cough * Swelling of your hands, feet, or legs * More fatigued or tired with your normal activity * Palpitations - sudden fast heart beats WEIGHT * Weigh yourself every morning after using the bathroom. * Use the same scale. * Wear the same amount of clothing. * Write your weight down on a chart. * Call your Primary Care doctor if you gain more than 2-3 pounds in 1-2 days. MEDICATIONS * Use this discharge instruction sheet for medication instructions. * Take your medications at the time your doctor ordered. * Do not skip a dose of your medicines. * If you miss a dose of medicine, take it as soon as possible, but DO NOT DOUBLE A DOSE. * Read your medicine information when you get home. * Know all of the side effects of your medicine. If in doubt, ask your pharmacist * Call your Primary Care doctor's office if you have any side effects. * Be sure all of your doctors know what medicine and herbs you take (including cold, flu, and herbal medicine). Take the following with you to your follow-up doctor appointments: * Weight Chart * Medication List * List of questions Do not drink excessive alcohol, beer or wine. Pending Studies at Discharge: No Stand-Alone Forms: My [facility] [employer], Smoking Cessation Medications and DC Order Prescriptions: New oxycodone-acetaminophen [Percocet] 5-325 mg Tablet 1 tab PO Q4H PRN (Reason: pain) Qty: 12 RF: 0 Continued escitalopram oxalate 20 mg tablet 20 mg PO DAILY RF: 0 prednisone 20 mg Tablet 20 mg PO UD PRN (Reason: Shortness Of Breath & Wheezing) RF: 0 aspirin 81 mg Tablet,Delayed Release (Dr/Ec) 81 mg PO DAILY RF: 0 calcipotriene [Dovonex] 0.005 % Cream 1 applic TOPICAL BID RF: 0 nitroglycerin 400 mcg/spray [place],Non-Aerosol 1 spry Sublingual UD PRN (Reason: Chest Pain) RF: 0 loratadine [Claritin] 10 mg Tablet 10 mg PO DAILY PRN (Reason: Allergy Symptoms) RF: 0 albuterol sulfate [Ventolin HFA] 90 mcg/actuation HFA aerosol inhaler 2 puff inhalation Q4H PRN (Reason: Shortness Of Breath Or Wheezing) RF: 0 trazodone 50 mg tablet 50 mg PO HS RF: 0 Dulera 100-5 mcg/actuation HFA aerosol inhaler 2 puff inhalation BID RF: 0 doxepin 3 mg Tablet 3 mg PO HS RF: 0 metformin 500 mg tablet extended release 24hr 500 mg PO DAILY Qty: 30 RF: 0 (DME) insulin admin supplies insulin pen See Dose Instructions .ROUTE .MEDSUPPLY Qty: 1 RF: 0 isosorbide dinitrate 10 mg tablet 10 mg PO BID RF: 0 atorvastatin 80 mg Tablet 80 mg PO DAILY RF: 0 clopidogrel [Plavix] 75 mg tablet 75 mg PO DAILY RF: 0 spironolactone [Aldactone] 25 mg tablet 12.5 mg PO DAILY RF: 0 fenofibrate micronized 134 mg capsule 134 mg PO DAILY RF: 0 metoprolol succinate [Toprol XL] 25 mg tablet extended release 24 hr 25 mg PO DAILY RF: 0 fluticasone propionate [Flonase Allergy Relief] 50 mcg/actuation [place],Suspension 2 spray INTRANASAL DAILY RF: 0 Dulera 100-5 mcg/actuation HFA aerosol inhaler 2 puff INHALATION BID RF: 0 Entresto 24-26 mg tablet 1 tab PO BID RF: 0 torsemide 10 mg tablet 10 mg PO DAILY RF: 0 Basaglar KwikPen U-100 Insulin 100 unit/mL (3 mL) insulin pen 25 unit SUBCUT QAM Qty: 3 RF: 0 Basaglar KwikPen U-100 Insulin 100 unit/mL (3 mL) insulin pen 30 unit SUBCUT HS Qty: 3 RF: 0 Discharge Orders: Discharge Order (Routine); Ordered 03/26/20 Ordered By: Romeo Campuzano/Other Patient Handouts: High Blood Sugar (Hyperglycemia), Healthy Meals for Diabetes, Diabetes: The Benefits of Exercise, Managing Diabetes: The A1C Test Admission Data Admit Date/Time: 03/19/20 20:13 Attending Provider: Romeo Rolon Admit Provider: Nate Rico Primary Care Provider: Viet Holly Other Providers: Jeremy Tellez ; Wilber Bermeo ; Irma Hess ; Nate Rico Other Interventions: Discharge Summary Assessment (RN) Last Done: 03/26/20 08:57
[2020-03-26] MEDS: OXYCODONE/ACETAMINOPHEN 5mg/325mg TAB PO PRN (10:43)
--- NOTE | 2020-04-09 06:18 | Operative Report (OR) ---
DATE OF OPERATION: 03/23/2020 PREOPERATIVE DIAGNOSES: Ischemic cardiomyopathy, left bundle branch block, chronic heart failure with reduced ejection fraction, [place] [employer] class 3. POSTOPERATIVE DIAGNOSES: Ischemic cardiomyopathy, left bundle branch block, chronic heart failure with reduced ejection fraction, [place] [employer] class 3. PROCEDURE: Biventricular rate responsive defibrillator with the LV lead over the His bundle region along with peripheral venogram and coronary sinus venogram and intracardiac mapping of the His bundle. Intracardiac EGM mapping of the His bundle region. SURGEON: Irma Hess DO. ASSISTANTS: None. ANESTHESIA: Monitored conscious sedation administered under my supervision by Ben Vargas. Start time 1439, end time 1619. A total of 4 mg of Versed, 100 mg of fentanyl. INTRAVENOUS FLUIDS: 85 mL. ANTIBIOTICS: Two grams of Ancef. CONTRAST: 30 mL. BLOOD LOSS: 20 mL. URINE OUTPUT: Not applicable. SPECIMENS: None. FINDINGS: See below. DRAINS: None. INDICATIONS: This is a 74-year-old gentleman with a past medical history for coronary artery disease where he had a PCI to the LAD back in 1998 and the RCA in 2005 and he ultimately underwent CABG in 06/2017 with YAN to LAD, SVG to ramus and SVG to circumflex, hypertension, ischemic cardiomyopathy, ejection fraction 35%, left bundle branch block, COPD and chronic heart failure with reduced ejection, [place] [employer] class 3. The patient was admitted to [facility] due to acute heart failure. He is optimized from a heart failure perspective and prior to discharge, he was recommended a biventricular ICD. CONSENT: Consent was obtained prior to the patient going into the electrophysiology lab. The patient was informed of risks, benefits and alternative procedure. Risks include but not limited to sudden cardiac , cardiac arrhythmias, cerebrovascular accident, myocardial infarction, injury to the blood vessels, chamber of the heart, lung, bleeding, and infection. The patient understood these risks and agreed to the procedure as planned. Informed consent was obtained. DESCRIPTION OF THE PROCEDURE: The patient was brought into the electrophysiology lab in a fasting state. He was connected to continuous cardiac monitoring. A timeout was performed to ensure patient identity and procedure correctly. The patient was prepped and draped over the left infraclavicular space in normal surgical standard fashion. Monitored conscious sedation was given throughout the procedure. [place] precautions were maintained throughout the procedure. He received prophylactic antibiotics prior to incision. A 10 mL of 1% lidocaine, bupivacaine mixture were given in the left deltopectoral groove. Incision was made in left deltopectoral groove. Blunt dissection was performed down to the cephalic vein; however, none could be identified, so peripheral venogram was performed to identify the axillary vein. Venous axillary access was obtained on 2 separate needle sticks, in the more lateral stick an 8-Israeli sheath was inserted over the guidewire without any resistance. The dilator was removed and a second guidewire was inserted through that sheath to allow for retained venous access. Sheath was then removed and a 9.5-Israeli sheath was inserted over the 1 guidewire in the more lateral stick. The guidewire and dilator removed and then the right ventricular defibrillator lead was advanced into right ventricle and positioned ultimately in the right ventricular apex under fluoroscopic guidance. There was adequate pacing and sensing thresholds and no diaphragmatic stimulation with high output pacing. The 9.5-Israeli sheath was peeled away and lead was fixated to pectoralis muscle using 0 silk suture. An 8-Israeli sheath was then inserted over the retained guidewire in the lateral stick. The guidewire and dilator removed and the right atrial lead was advanced into right atrium and positioned interatrial appendage under fluoroscopic guidance. There was adequate pacing and sensing thresholds and no diaphragmatic stimulation with high output pacing. The 8-Israeli sheath was peeled away and lead was fixated to pectoralis muscle using 0 silk suture. The more medial stick, a 9.5-Israeli sheath was inserted over the guidewire. The guidewire and dilator removed. The MPX outer coronary sheath was advanced into right atrium over a Glidewire. The Glidewire and dilator were removed. Then, the Decapolar diagnostic coronary sinus catheter was used to cannulate the coronary sinus and the MPX outer sheath was run over it and then a venogram of the coronary sinus was performed in a few different views. There was a very small somewhat acute takeoff - was possible, would possibly be amenable to a coronary sinus lead. I attempted to cannulate via this branch, but was not able to get a very good support and wire it to the point where I felt the lead could be advanced in. So I opted to do a His bundle lead through the MPX catheter was removed and the SelectSite [id number] deflectable catheter was then advanced into the right atrium and into the right ventricle. Then, the guidewire and dilator removed and the His lead was advanced into the catheter and we did intracardiac mapping to locate the His. The AH was 187 and the HV was 70. I then screwed the lead into that area and had adequate pacing. The His sheath was then slit under fluoroscopic guidance and a 9.5-Israeli sheath was then split and the lead was affixed to the pectoralis muscle using 0 silk suture. Then a defibrillator pocket was created using blunt dissection over the pectoralis muscle. The pocket was flushed with copious amounts of bacitracin saline wash and inspected for hemostasis. The leads were then attached to the defibrillator making sure that the pins were in appropriate position, passed set screws and set screws were all tightened. Pulse generator was then placed in the pocket, making sure that the leads were lying flat beneath the device. The incision was then closed in a 3-layer fashion with 2-0 Vicryl interrupted suture followed by 3-0 Vicryl interrupted suture followed by 4-0 Monocryl running stitch and Dermabond was applied followed then by a Telfa and Micropore dressing. EQUIPMENT: 1. Pulse generator is a [employer] [id number], serial number [id number]. 2. Right atrial lead is a Medtronic 5076-52 cm, serial number [id number]. 3. Right ventricular lead, Medtronic 6935M-62 cm, serial number [id number]. 4. The His lead is a Medtronic 3830-69 cm, serial number [id number]. INTRAOPERATIVE TESTIN. Right atrial lead: P waves 0.9 millivolts, impedance 516 ohms, threshold 1.5 volts at 0.4 milliseconds. 2. Right ventricular lead: R-wave 12.3 millivolts, impedance 628 ohms, threshold 0.4 volts at 0.5 milliseconds. 3. His lead impedance 559 ohms, threshold 3 volts at 1 millisecond. R waves were are 1.2 millivolts. FINAL MEASUREMENTS THROUGH THE DEVICE: 1. Right atrial lead: P-wave 0.8 millivolts, impedance 512 ohms, threshold 0.75 volts at 0.4 milliseconds. 2. Right ventricular lead: R-wave 14.6 millivolts, impedance 551 ohms, threshold 0.5 volts at 0.4 milliseconds. 3. The His bundle lead, selective loss of capture was 2.5 volts at 1 millisecond and nonselective loss of capture was 1 volt at 1 millisecond. FINAL PARAMETERS: DDD 60/130, right ventricle and right atrial amplitude 3.5 volts, pulse width 0.4 milliseconds, sensitivity 0.3 millivolts. Left ventricular amplitude 4 volts, pulse width 1 millisecond, a VT monitor zone of 150 beats per minute, a VT zone at 171 beats per minute for 20 detection intervals and VF zone at 200 beats per minute for 30/40 detection intervals. IMPRESSION: Successful rate responsive biventricular implantable cardiac defibrillator with the LV lead over the His bundle, along with the peripheral and coronary sinus venogram and intracardiac electrogram mapping of the His bundle region secondary to ischemic cardiomyopathy, left bundle-branch block and chronic heart failure with reduced ejection fraction. PLAN: Monitor patient overnight, 12-lead ECG, chest x-ray. He is not allowed to lift left shoulder for 1 month. He cannot lift more than 10 pounds with the left arm for 2 weeks. He is to leave the dressing on and dry until his wound check next week at [facility]. I attest to the content of the Intraoperative Record and any orders documented therein. Any exception s are noted below.
== END 2020-03-26 10:48 | disposition home health service (06) | DRG 226 ==
LOC: ED 17:15 → SUATTDRO 20:13 → 2S 20:13
PROC: EPB.ICD (2020-03-23 13:15)

== ENCOUNTER 2020-10-04 16:59 | Inpatient (IN) ==
[2020-10-04] MEDS ORDERED: SODIUM CHLORIDE 0.9% 500 ML IV SCH (18:00)
[2020-10-04 18:32] LABS: Basophils # (auto) 0.01 K/uL (0-0.2); Basophils % (auto) 0.1 %; Eosinophils # (auto) 0.02 K/uL (0-0.5); Eosinophils % (auto) 0.1 %; Hematocrit (blood only) 45.7 % (42-52); Hemoglobin 15.8 g/dL (14.0-18.0); Immature Granulocytes # (auto) 0.04 K/uL (0.00-0.02); Immature Granulocytes % (auto) 0.3 %; Lymphocytes # (auto) 1.47 K/uL (1.2-3.4); Lymphocytes % (auto) 10.9 %; Mean Corpuscular Hemoglobin 32.1 pg (25-34); Mean Corpuscular Hgb Conc 34.6 g/dL (32-36); Mean Corpuscular Volume 92.9 fL (80-100); Mean Platelet Volume 10.2 fL (7.4-10.4); Monocytes # (auto) 1.02 K/uL (0.11-0.59); Monocytes % (auto) 7.5 %; Neutrophils # (auto) 10.96 K/uL (1.4-6.5); Neutrophils % (auto) 81.1 %; Platelet Count 400 K/uL (130-400); RDW Coefficient of Variation 13.2 % (11.5-14.5); RDW Standard Deviation 45.1 fL (36.4-46.3); Red Blood Count 4.92 M/uL (4.7-6.1); White Blood Count 13.52 K/uL (4.8-10.8)
--- NOTE | 2020-10-04 18:43 | Emergency Department Note ---
Impression & Plan Weakness, Contusion of hip, left, Abrasion of arm, left, Elevated troponin I level, Chronic diarrhea ED Provider Note NAME: ELIZABETH ARMSTRONG AGE: 75 SEX: M : 1945 ARRIVES VIA: Walk-In INFORMANT: Patient, ED PROVIDER(S): John Mann DO CHIEF COMPLAINT: Weakness HPI: The patient is a 75-year-old male who presented to the emergency department for an evaluation of generalized weakness. The patient states that today he started noticing weakness in both lower extremities. Initially he noticed numbness in his left leg. He then went to stand up and noticed that both legs were very weak. He fell striking his left arm. He does have an abrasion to the back of his left arm but no active bleeding was noted. He states that he does have a history of chronic diarrhea and has been noticing worsening weakness over the course of the last few days. He denies having any fever or cough. He has had no exposure to COVID-19 as far as he knows. The patient presented with his family member who states that she noticed that the house was very disheveled the patient's been having worsening diarrhea over the course the last few days. He denies having any back pain. He had no loss of consciousness. He denies having any neck pain or chest pain. He denies having any fever or cough. The patient does use tobacco products and does have a chronic cough and his family member states that he may be having worsening breathing issues than baseline. ROS: See above HPI for pertinent positives & negatives. A total of 10 systems reviewed and were otherwise negative. PAST MEDICAL HISTORY: See Below PAST SURGICAL HISTORY: See Below FAMILY HISTORY: See Below SOCIAL HISTORY: See Below HOME MEDICATIONS: See Below ALLERGIES: See Below VITALS: See Below PHYSICAL EXAMINATION: GENERAL: The patient is awake and alert. He is nonanxious appearing and appears comfortable. EYES: The conjunctivae are clear. The pupils are round and reactive. EARS, NOSE, MOUTH AND THROAT: The nose is without any evidence of any deformity. NECK: The neck is nontender and supple. RESPIRATORY: Shallow respirations were noted. Scattered rhonchi were noted throughout. There was no conversational dyspnea. CARDIOVASCULAR: Regular rate and rhythm noted there no murmurs rubs or gallops normal S1 normal S2. GASTROINTESTINAL: The abdomen is soft. Abdomen is nontender. BACK: No midline tenderness was noted. MUSCULOSKELETAL/EXTREMITIES: There is no evidence of gross deformity full range of motion is noted in the hips and shoulders. SKIN: Pedal edema was noted bilaterally. NEUROLOGIC: Patient is awake alert and oriented x3. No facial droop was noted. Patient is able to hold each leg off the bed for greater than 5 seconds. MEDICAL DECISION MAKING: The patient is a 75-year-old male who presented to the emergency department for an evaluation after a fall and generalized weakness. The patient does have a history of chronic diarrhea. The patient appeared to have some degree of dehydration. He was also found to have an elevated troponin. He did not appear to have any acute injury of his hip or his intracranial region after the fall. I discussed the patient's laboratory and radiographic studies with him. Given his findings I discussed his case with the on-call [facility] hospitalist group. They have agreed to evaluate the patient in the emergency department. Triage Nursing notes reviewed. Prior medical records reviewed Vital Signs: reviewed and remarkable for borderline low blood pressure. Differential diagnosis: Infection, dehydration, metabolic abnormality, hypo/hyperglycemia, electrolyte disturbance, anemia, hypoxia, cardiac sources, intracerebral event, toxicologic, neurologic, as well as other pathologies. ER treatment provided: See below Diagnostics interpreted by me: ECG: EKG was obtained in the emergency department. My interpretation is ventricular paced rhythm with atrial sensed lead at 62 bpm. No muscogee beats were noted. Left bundle branch block pattern was noted. Lateral T wave inversions were noted. This was compared to a tracing from March 242019. No significant changes were noted. Cardiac Monitoring: An order was placed for continuous cardiac monitoring. The monitor shows a rate of 65 bpm with paced rhythm. Laboratory studies: As stated above and show below. Imaging studies: See below Consultation(s): 2049: I discussed this case with Dr. Tellez who is on-call for the [facility] hospitalist group. 2119: I [facility] this [facility]. Past Med/Surg History Medical History (Updated 10/04/20 @ 21:19 by John Mann DO) Anxiety CAD (coronary artery disease), muscogee coronary artery "SC 1998 followed by PCI, SC 2005 followed by PCI, non-STEMI 2016 followed by CABG" COPD (chronic obstructive pulmonary disease) Depression Left bundle branch block (LBBB) on electrocardiogram Obesity (BMI 30-39.9) Family History Other Family history non-contributory Social History Smoking Status: Current every day smoker Cigarettes Per Day: 20; Second Hand Exposure: No; Hx Alcohol Use: No Hx Substance Use: No Preferred Language: Azerbaijani Communication Ability: Effective Housing Case Manager Required: No Beliefs That Will Affect Care: None marital status: / Current Living Situation: Alone Feels Safe at Home: Yes Assistive Devices: None Allergies Allergies Allergy/AdvReac Type Severity Reaction Status Date / Time VELMA Inhibitors Allergy Unknown unknown Verified 03/19/20 20:00 Home Meds Home Medications Medication Instructions Recorded Confirmed aspirin 81 mg PO DAILY 09/05/18 03/19/20 calcipotriene [Dovonex] 1 applic TOPICAL BID 09/05/18 03/19/20 escitalopram oxalate 20 mg PO DAILY 09/05/18 03/19/20 loratadine [Claritin] 10 mg PO DAILY PRN 09/05/18 03/19/20 nitroglycerin 1 spry SUBLINGUAL UD PRN 09/05/18 03/19/20 prednisone 20 mg PO UD PRN 09/05/18 03/19/20 Dulera 2 puff INHALATION BID 07/08/19 03/19/20 albuterol sulfate [Ventolin HFA] 2 puff INHALATION Q4H PRN 07/08/19 03/19/20 doxepin 3 mg PO HS 07/08/19 03/19/20 trazodone 50 mg PO HS 07/08/19 03/19/20 Dulera 2 puff INHALATION BID 03/19/20 03/19/20 Entresto 1 tab PO BID 03/19/20 03/19/20 atorvastatin 80 mg PO DAILY 03/19/20 03/19/20 clopidogrel [Plavix] 75 mg PO DAILY 03/19/20 03/19/20 fenofibrate micronized 134 mg PO DAILY 03/19/20 03/19/20 fluticasone propionate [Flonase 2 spray INTRANASAL DAILY 03/19/20 03/19/20 Allergy Relief] isosorbide dinitrate 10 mg PO BID 03/19/20 03/19/20 metoprolol succinate [Toprol XL] 25 mg PO DAILY 03/19/20 03/19/20 spironolactone [Aldactone] 12.5 mg PO DAILY 03/19/20 03/19/20 torsemide 10 mg PO DAILY 03/19/20 03/19/20 Previous Rx's Medication Instructions Recorded insulin admin supplies #1 ea 07/12/19 metformin 500 mg PO DAILY #30 tab 07/12/19 Basaglar KwikPen U-100 Insulin 25 unit SUBCUT QAM #3 ml 03/26/20 Basaglar KwikPen U-100 Insulin 30 unit SUBCUT HS #3 ml 03/26/20 insulin glargine [Basaglar KwikPen 25 units SQ QAM #3 ml 03/26/20 U-100 Insulin] oxycodone 5 mg PO Q3H PRN #12 cap 03/26/20 Results & Data (ED) Vital Signs Vital Signs - 24 hr 10/04/20 17:08 10/04/20 18:23 10/04/20 18:30 Temperature 36.4 C L Temperature Source Oral Pulse Rate 63 60 60 Pulse Rate [Apical] Pulse Rate from SpO2 Sensor 60 61 Respiratory Rate 20 14 21 Respiratory Effort / Characteristics Non-Labored Respiratory Depth Normal Respiratory Pattern Regular Blood Pressure 141/64 H 131/55 L 127/56 L Blood Pressure [Right Arm] Blood Pressure Mean 89 81 80 Blood Pressure Mean [Right Arm] Blood Pressure Position Sitting Pulse Oximetry 95 95 95 Oxygen Delivery Method Room Air Room Air Sepsis Recent Fever Within 48 Hours No Sepsis New/Unexplained Change in Mental Status No Sepsis Action Taken by Nursing No Action Required 10/04/20 20:00 Temperature Temperature Source Pulse Rate Pulse Rate [Apical] 64 Pulse Rate from SpO2 Sensor Respiratory Rate 18 Respiratory Effort / Characteristics Non-Labored Respiratory Depth Normal Respiratory Pattern Regular Blood Pressure Blood Pressure [Right Arm] 129/58 L Blood Pressure Mean Blood Pressure Mean [Right Arm] 81 Blood Pressure Position Pulse Oximetry 94 Oxygen Delivery Method Room Air Sepsis Recent Fever Within 48 Hours Sepsis New/Unexplained Change in Mental Status Sepsis Action Taken by [facility] Medications Current Medication List: was personally reviewed by me Laboratory Data Attestation: I reviewed the patient's lab results. Result diagrams: 10/04/20 18:17 10/04/20 18:17 Lab Results 0110/04/20 10/04/20 Range/Units 18:17 18:17 18:17 WBC 13.52 H (4.8-10.8) K/uL RBC 4.92 (4.7-6.1) M/uL Hgb 15.8 (14.0-18.0) g/dL Hct 45.7 (42-52) % MCV 92.9 (80-100) fL MCH 32.1 (25-34) pg MCHC 34.6 (32-36) g/dL RDW Std Deviation 45.1 (36.4-46.3) fL RDW Coeff of Shellie 13.2 (11.5-14.5) % Plt Count 400 (130-400) K/uL MPV 10.2 (7.4-10.4) fL Immature Gran % (Auto) 0.3 % Neut % (Auto) 81.1 % Lymph % (Auto) 10.9 % Hooker % (Auto) 7.5 % Eos % (Auto) 0.1 % Baso % (Auto) 0.1 % Neut # (Auto) 10.96 H (1.4-6.5) K/uL Lymph # (Auto) 1.47 (1.2-3.4) K/uL Hooker # (Auto) 1.02 H (0.11-0.59) K/uL Eos # (Auto) 0.02 (0-0.5) K/uL Baso # (Auto) 0.01 (0-0.2) K/uL Immature Gran # (Auto) 0.04 H (0.00-0.02) K/uL PT 11.7 (9.0-12.0) Seconds INR 1.1 (0.9-1.1) APTT 34.9 H (21.0-31.0) Seconds PTT Ratio 1.3 Sodium 143 (136-145) mmol/L Potassium 4.1 (3.5-5.1) mmol/L Chloride 107 (98-107) mmol/L Carbon Dioxide 30 (21-32) mmol/L Anion Gap 6.0 (3-11) BUN 20 H (7-18) mg/dl Creatinine 0.99 (0.6-1.4) mg/dl Est Cr Clr Drug Dosing Not Reportable Est GFR ( Amer) 86.0 Est GFR (Non-Af Amer) 74.2 BUN/Creatinine Ratio 19.9 (10-20) Glucose 111 H (70-99) mg/dl Calcium 8.7 (8.5-10.1) mg/dl Magnesium 1.7 L (1.8-2.4) mg/dl Total Bilirubin 0.4 (0.2-1) mg/dl AST 27 (15-37) U/L ALT 23 (12-78) U/L Alkaline Phosphatase 72 (45-117) U/L Total Creatine Kinase 689 H (39-308) U/L Troponin I 0.078 H* (0-0.045) ng/ml Total Protein 7.5 (6.4-8.2) gm/dl Albumin 3.6 (3.4-5.0) gm/dl Globulin 3.9 (2.5-4.0) gm/dl Albumin/Globulin Ratio 0.9 (0.9-2) TSH 3.900 (0.300-4.500) uIu/ml Specimen Hemolysis COVID-19 Eval Order SARS-CoV-2, RNA, NAAT (NEGATIVE) 10/04/20 10/04/20 Range/Units 18:18 18:18 WBC (4.8-10.8) K/uL RBC (4.7-6.1) M/uL Hgb (14.0-18.0) g/dL Hct (42-52) % MCV (80-100) fL MCH (25-34) pg MCHC (32-36) g/dL RDW Std Deviation (36.4-46.3) fL RDW Coeff of Shellie (11.5-14.5) % Plt Count (130-400) K/uL MPV (7.4-10.4) fL Immature Gran % (Auto) % Neut % (Auto) % Lymph % (Auto) % Hooker % (Auto) % Eos % (Auto) % Baso % (Auto) % Neut # (Auto) (1.4-6.5) K/uL Lymph # (Auto) (1.2-3.4) K/uL Hooker # (Auto) (0.11-0.59) K/uL Eos # (Auto) (0-0.5) K/uL Baso # (Auto) (0-0.2) K/uL Immature Gran # (Auto) (0.00-0.02) K/uL PT (9.0-12.0) Seconds INR (0.9-1.1) APTT (21.0-31.0) Seconds PTT Ratio Sodium (136-145) mmol/L Potassium (3.5-5.1) mmol/L Chloride (98-107) mmol/L Carbon Dioxide (21-32) mmol/L Anion Gap (3-11) BUN (7-18) mg/dl Creatinine (0.6-1.4) mg/dl Est Cr Clr Drug Dosing Est GFR ( Amer) Est GFR (Non-Af Amer) BUN/Creatinine Ratio (10-20) Glucose (70-99) mg/dl Calcium (8.5-10.1) mg/dl Magnesium (1.8-2.4) mg/dl Total Bilirubin (0.2-1) mg/dl AST (15-37) U/L ALT (12-78) U/L Alkaline Phosphatase (45-117) U/L Total Creatine Kinase (39-308) U/L Troponin I (0-0.045) ng/ml Total Protein (6.4-8.2) gm/dl Albumin (3.4-5.0) gm/dl Globulin (2.5-4.0) gm/dl Albumin/Globulin Ratio (0.9-2) TSH (0.300-4.500) uIu/ml Specimen Hemolysis COVID-19 Eval Order Covid19 IDNow atMMDC SARS-CoV-2, RNA, NAAT NEGATIVE (NEGATIVE) Administered Medications Discontinued Medications Sodium Chloride (Nss) 500 mls @ 999 mls/hr IV .Q31M AFIA Stop: 10/04/20 18:30 Last Infusion: 10/04/20 19:34 Dose: 0 mls/hr Documented by: [id number] Admin: 10/04/20 18:25 Dose: 999 mls/hr Documented by: [id number] Morphine Sulfate (Morphine Sulfate 4 Mg/Ml 1 Ml Carp\\Vial) 4 mg IV NOW STA Stop: 10/04/20 20:42 Last Admin: 10/04/20 20:56 Dose: 4 mg Documented by: [id number] Imaging Data Radiologist's Impression: Patient: ELIZABETH ARMSTRONGit Date: 10/04/20 MR#: [id number] Address1: [address] [place] [address] Acct ID:[id number] Address2: [place] [address] Date: 1945 [facility] Zip: [place] [address] Age: 75 Location: ED Sex: M Room/Bed: Att Phy: Diagnosis: FALL, HIP PAIN, BLEEDING Yamilka Phy: Viet Holly, Service Date: 10/04/20 Avery Phy: Interpreting Phy: Jakob Martinez MD Admit Phy: Ordering Phy: John Mann DO cc: ~ SINGLE VIEW PELVIS; 2 VIEWS LEFT HIP CLINICAL HISTORY: Fall. Left hip pain. FINDINGS: An AP view of the pelvis with AP and frog-leg views of the left hip are obtained. No prior studies are available for comparison at the time of dictation. The skeletal structures are osteopenic. There is no radiographic evidence of fracture involving the hips or bony pelvis. Mild degenerative joint space narrowing seen in the hips. Degenerative sclerosis is noted in the sacroiliac joints and pubic symphysis. Lumbosacral spondylosis is partially visualized. The overlying soft tissues are normal as imaged. IMPRESSION: No acute bony abnormality is identified. Electronically signed by: Jakob Martinez M.D. 10/04/2020 8:19 PM Dictated: 10/04/202017 Transcribed: 10/04/202017 Patient: ELIZABETH ARMSTRONG Admit Date: 10/04/20 MR#: [id number] Address1: [address] [place] [address] Acct ID:[id number] Address2: [place] [address] Date: 1945 [facility] Zip: [place] [address] Age: 75 Location: ED Sex: M Room/Bed: Att Phy: Diagnosis: FALL, HIP PAIN, BLEEDING Yamilka Phy: Viet Holly DO Service Date: 10/04/20 Avery Phy: Interpreting Phy: Jakob Martinez MD Admit Phy: Ordering Phy: John Mann DO cc: ~ CT SCAN OF THE BRAIN WITHOUT IV CONTRAST CLINICAL HISTORY: Generalized weakness. COMPARISON STUDY: No priors. TECHNIQUE: Unenhanced axial CT scan of the brain is performed from the vertex to the skull base. A dose lowering technique was utilized adhering to the principles of ALARA. CT DOSE: 884.08 mGy.cm FINDINGS: Brain parenchyma: There are age-related involutional changes noting moderate to advanced subcortical and periventricular microangiopathic change. There is no hemorrhage, mass effect, or evidence of acute territorial ischemia by CT criteria. Peng-white matter differentiation is preserved. No extra-axial fluid collection is seen. Ventricles, sulci, cisterns: Prominent secondary to involutional change. Intracranial vasculature: There is atherosclerotic calcification of the cavernous carotid and vertebral arteries. Calvarium: Unremarkable. Sinuses and mastoids: The visualized paranasal sinuses are clear. The mastoid air cells are well pneumatized. Orbits: The bony orbits are grossly intact. There are bilateral ocular lens implants. IMPRESSION: There is no hemorrhage, mass effect, or evidence of acute terr itorial ischemia by CT criteria. ACT 112: Negative or not required by law. Electronically signed by: Jakob Martinez M.D. 10/04/2020 7:31 PM Dictated: 10/04/201928 Transcribed: 10/04/201928 Patient: ELIZABETH ARMSTRONG Admit Date: 10/04/20 MR#: [id number] Address1: [address] [place] [address] Acct ID:[id number] Address2: [facility] Date: 1945 [facility] Zip: [place] [address] Age: 75 Location: ED Sex: M Room/Bed: Att Phy: Diagnosis: FALL, HIP PAIN, BLEEDING Yamilka Phy: Viet Holly DO Service Date: 10/04/20 Fam Phy: Interpreting Phy: Jakob Martinez MD Admit Phy: Ordering Phy: John Mann DO cc: ~ SINGLE VIEW CHEST CLINICAL HISTORY: Generalized weakness. FINDINGS: An AP, portable, upright chest radiograph is compared to study dated 03/24/2020 and correlated with chest CT dated 09/05/2018. The patient is status post midline sternotomy. A 3-lead cardiac AICD is unchanged in position. The heart is enlarged noting atherosclerotic calcification of the thoracic aorta. There is mild pulmonary vascular congestion. A small chronic pleural effusion is seen at the left lung base with associated consolidation. Foci of parenchymal scarring are again seen in the left upper lung. No pneumothorax is seen. The skeletal structures are osteopenic. The bony thorax is grossly intact. Calcific tendinopathy is noted in the right shoulder. IMPRESSION: 1. Cardiomegaly and AICD with mild pulmonary vascular congestion. 2. There is a small chronic left pleural effusion with associated left basilar opacities. ACT 112: Negative or not required by law. Electronically signed by: Jakob Martinez M.D. 10/04/2020 7:02 PM Dictated: 10/04/201899 Transcribed: 10/04/201899 Blood Pressure Blood Pressure Findings: Low blood pressure Discharge Plan Visit Data Chief Complaint: Fall Stated Complaint: FALL, HIP PAIN, BLEEDING ED Provider: John Mann Discharge Problem: Weakness, Contusion of hip, left, Abrasion of arm, left, Elevated troponin I level, Chronic diarrhea Patient Disposition: Being Evaluated by Hospitalist Condition: Good Forms Stand Alone Forms: My [facility] Prescriptions Prescriptions: No Action escitalopram oxalate 20 mg tablet 20 mg PO DAILY RF: 0 prednisone 20 mg Tablet 20 mg PO UD PRN (Reason: Shortness Of Breath & Wheezing) RF: 0 aspirin 81 mg Tablet,Delayed Release (Dr/Ec) 81 mg PO DAILY RF: 0 calcipotriene [Dovonex] 0.005 % Cream 1 applic TOPICAL BID RF: 0 nitroglycerin 400 mcg/spray [place],Non-Aerosol 1 spry Sublingual UD PRN (Reason: Chest Pain) RF: 0 loratadine [Claritin] 10 mg Tablet 10 mg PO DAILY PRN (Reason: Allergy Symptoms) RF: 0 albuterol sulfate [Ventolin HFA] 90 mcg/actuation HFA aerosol inhaler 2 puff inhalation Q4H PRN (Reason: Shortness Of Breath Or Wheezing) RF: 0 trazodone 50 mg tablet 50 mg PO HS RF: 0 Dulera 100-5 mcg/actuation HFA aerosol inhaler 2 puff inhalation BID RF: 0 doxepin 3 mg Tablet 3 mg PO HS RF: 0 metformin 500 mg tablet extended release 24hr 500 mg PO DAILY Qty: 30 RF: 0 (DME) insulin admin supplies insulin pen See Dose Instructions .ROUTE .MEDSUPPLY Qty: 1 RF: 0 isosorbide dinitrate 10 mg tablet 10 mg PO BID RF: 0 atorvastatin 80 mg Tablet 80 mg PO DAILY RF: 0 clopidogrel [Plavix] 75 mg tablet 75 mg PO DAILY RF: 0 spironolactone [Aldactone] 25 mg tablet 12.5 mg PO DAILY RF: 0 fenofibrate micronized 134 mg capsule 134 mg PO DAILY RF: 0 metoprolol succinate [Toprol XL] 25 mg tablet extended release 24 hr 25 mg PO DAILY RF: 0 fluticasone propionate [Flonase Allergy Relief] 50 mcg/actuation [place],Suspension 2 spray INTRANASAL DAILY RF: 0 Dulera 100-5 mcg/actuation HFA aerosol inhaler 2 puff INHALATION BID RF: 0 Entresto 24-26 mg tablet 1 tab PO BID RF: 0 torsemide 10 mg tablet 10 mg PO DAILY RF: 0 Basaglar KwikPen U-100 Insulin 100 unit/mL (3 mL) insulin pen 25 unit SUBCUT QAM Qty: 3 RF: 0 Basaglar KwikPen U-100 Insulin 100 unit/mL (3 mL) insulin pen 30 unit SUBCUT HS Qty: 3 RF: 0 oxycodone 5 mg capsule 5 mg PO Q3H PRN (Reason: pain) Qty: 12 RF: 0 Basaglar KwikPen U-100 Insulin 100 unit/mL (3 mL) insulin pen 25 units SQ QAM Qty: 3 RF: 0 Referrals Referrals: Viet Holly DO [Primary Care Provider] - Discharge Problem: Contusion of hip, left Qualifiers: Encounter type: initial encounter Qualified Code(s): S70.02XA - Contusion of left hip, initial encounter Abrasion of arm, left Qualifiers: Encounter type: initial encounter Qualified Code(s): S40.812A - Abrasion of left upper arm, initial encounter
[2020-10-04 18:44] LABS: INR 1.1 (0.9-1.1); Partial Thromboplastin Ratio 1.3; Partial Thromboplastin Time 34.9 Seconds (21.0-31.0); Prothrombin Time 11.7 Seconds (9.0-12.0)
--- NOTE | 2020-10-04 19:03 | XRay Report ---
SINGLE VIEW CHEST CLINICAL HISTORY: Generalized weakness. FINDINGS: An AP, portable, upright chest radiograph is compared to study dated 03/24/2020 and correlat ed with chest CT dated 09/05/2018. The patient is status post midline sternotomy. A 3-lead cardiac AI CD is unchanged in position. The heart is enlarged noting atherosclerotic calcification of the thorac ic aorta. There is mild pulmonary vascular congestion. A small chronic pleural effusion is seen at th e left lung base with associated consolidation. Foci of parenchymal scarring are again seen in the le ft upper lung. No pneumothorax is seen. The skeletal structures are osteopenic. The bony thorax is gr ossly intact. Calcific tendinopathy is noted in the right shoulder. IMPRESSION: 1. Cardiomegaly and AICD with mild pulmonary vascular congestion. 2. There is a small chronic left pleural effusion with associated left basilar opacities. ACT 112: Negative or not required by law. Electronically signed by: Jakob Martinez M.D. 10/04/2020 7:02 PM
[2020-10-04 19:15] LABS: Alanine Aminotransferase 23 U/L (12-78); Albumin Globulin Ratio 0.9 (0.9-2); Albumin Level 3.6 gm/dl (3.4-5.0); Alkaline Phosphatase 72 U/L (45-117); Aspartate Aminotransferase 27 U/L (15-37); BUN Creatinine Ratio 19.9 (10-20); Bilirubin,Total 0.4 mg/dl (0.2-1); Blood Urea Nitrogen 20 mg/dl (7-18); Calcium 8.7 mg/dl (8.5-10.1); Carbon Dioxide 30 mmol/L (21-32); Chloride 107 mmol/L (98-107); Creatine Kinase 689 U/L (39-308); Est GFR (Non-African American) 74.2; Globulin 3.9 gm/dl (2.5-4.0); Glucose 111 mg/dl (70-99); Magnesium 1.7 mg/dl (1.8-2.4); Potassium 4.1 mmol/L (3.5-5.1); Sodium 143 mmol/L (136-145); Total Protein 7.5 gm/dl (6.4-8.2); Troponin I 0.078 ng/ml (0-0.045)
--- NOTE | 2020-10-04 19:32 | CT Scan Report ---
CT SCAN OF THE BRAIN WITHOUT IV CONTRAST CLINICAL HISTORY: Generalized weakness. COMPARISON STUDY: No priors. TECHNIQUE: Unenhanced axial CT scan of the brain is performed from the vertex to the skull base. A do se lowering technique was utilized adhering to the principles of ALARA. CT DOSE: 884.08 mGy.cm FINDINGS: Brain parenchyma: There are age-related involutional changes noting moderate to advanced subcortical and periventricular microangiopathic change. There is no hemorrhage, mass effect, or evidence of acu te territorial ischemia by CT criteria. Peng-white matter differentiation is preserved. No extra-axia l fluid collection is seen. Ventricles, sulci, cisterns: Prominent secondary to involutional change. Intracranial vasculature: There is atherosclerotic calcification of the cavernous carotid and vertebr al arteries. Calvarium: Unremarkable. Sinuses and mastoids: The visualized paranasal sinuses are clear. The mastoid air cells are well pneu matized. Orbits: The bony orbits are grossly intact. There are bilateral ocular lens implants. IMPRESSION: There is no hemorrhage, mass effect, or evidence of acute territorial ischemia by CT edy cramer. ACT 112: Negative or not required by law. Electronically signed by: Jakob Martinez M.D. 10/04/2020 7:31 PM
--- NOTE | 2020-10-04 20:21 | XRay Report ---
SINGLE VIEW PELVIS; 2 VIEWS LEFT HIP CLINICAL HISTORY: Fall. Left hip pain. FINDINGS: An AP view of the pelvis with AP and frog-leg views of the left hip are obtained. No prior studies are available for comparison at the time of dictation. The skeletal structures are osteopenic . There is no radiographic evidence of fracture involving the hips or bony pelvis. Mild degenerative joint space narrowing seen in the hips. Degenerative sclerosis is noted in the sacroiliac joints and pubic symphysis. Lumbosacral spondylosis is partially visualized. The overlying soft tissues are norm al as imaged. IMPRESSION: No acute bony abnormality is identified. Electronically signed by: Jakob Martinez M.D. 10/04/2020 8:19 PM
[2020-10-04] MEDS ORDERED: MoRPHine SULFATE 4 MG/ML 1 ML CARP\\VIAL IV STA (20:41)
--- NOTE | 2020-10-04 22:31 | History & Physical Report ---
Date of Service October 04, 2020 Assessment & Plan (1) Weakness: (2) Elevated troponin I level: (3) Ischemic cardiomyopathy: (4) CAD (coronary artery disease), [place] coronary artery: (5) Diabetes mellitus, type 2: (6) Hypertension: (7) Status post coronary artery bypass grafting: (8) Tobacco use: (9) Fall: (10) Anxiety: Generalized weakness Fall at home Elevated troponin According to patient, weakness has been progressive CT head was unremarkable for acute abnormality Fall precautions PT/OT evaluation Got IV fluids in ER. We will not continue IV fluids at this time. Follow-up CPK Trend troponins EKG showed atrial sensed ventricular paced rhythm. Telemetry monitoring Hypomagnesemia. Mag is 1.7. Replete and monitor CAD status post CABG Ischemic cardiomyopathy with EF of 35 to 40% Continue home medication including aspirin, atorvastatin Continue Entresto and isosorbide dinitrate Continue metoprolol XL Resume Lasix in a.m. Diabetes mellitus type 2 Continue home insulin regimen Insulin sliding scale Carbohydrate controlled diet Monitor blood glucose Anxiety Continue home citalopram Tobacco use Counseled patient extensively on need for smoking cessation DVT prophylaxis Lovenox subcu History of Present Illness 75-year-old male with past medical history of type 2 diabetes, microalbuminuria diabetic nephropathy,hyperlipidemia, COPD, allergic rhinitis, paroxysmal atrial fibrillation, unstable angina, hypertension, left bundle branch block, left main coronary artery disease, CKD stage I, chronic diastolic CHF, obesity, tubular adenoma of colon, glaucoma, major depression, tobacco disorder, CAD, status post CABG who presents to the ER for weakness and fall. Patient reports that over the past couple of months he has been progressively getting weaker especially in his legs. He states that he usually have to sit up and wait for few minutes before getting up from the bed. He reported that today, he felt some shaking in his legs. He cannot say if he had numbness or not. Then he felt like he needed to urinate. He got up from the bed and on standing up, his legs gave out and he fell on the floor. He denied any dizziness, palpitations, chest pain or shortness of breath prior to falling. He stated that his legs were quite weak that he tried multiple times to get up by holding onto the arms of the chair which was nearby. Each time he is able to get up slightly he falls back again because of weakness in his legs. He said that he did this multiple times that he started sweating and he started feeling sore where the chair was pressing against his chest. He had to call the daughter who came and he was brought today to the ER. Patient denied any loss of consciousness Denied hitting the head when he fell. He fell on his left arm which he had a bruise with some bleeding which is stopped He denied any nausea, vomiting. He denied any diarrhea. He stated that the last time he had diarrhea was last year when he was on Metformin. He denies any fevers, chills Denies any cough, shortness of breath at rest. Reports chronic shortness of breath with some exertion which is unchanged Denies any dizziness Denies any abdominal pain Denies any dysuria, frequency, urgency, hematuria Reports that he had stopped smoking but resumed again within the pandemic. As he lives alone since he lost his and one of his daughters. Currently smokes 1 pack/day. Denied illicit drug use or alcohol use. On coming to the ER was noted to have WBC of 13, Magnesium of 1.7, troponin of 0.078, CPK of 689. He got 1 L IV fluid bolus X-rays and scans did not show any acute abnormality Primary Care Provider: Viet Holly DO Allergies Allergy/AdvReac Type Severity Reaction Status Date / Time VELMA Inhibitors Allergy Unknown unknown Verified 03/19/20 20:00 Home Medications Medication Instructions Recorded Confirmed Type aspirin 81 mg PO DAILY 09/05/18 10/04/20 History calcipotriene [Dovonex] 1 applic TOPICAL BID 09/05/18 10/04/20 History escitalopram oxalate 20 mg PO DAILY 09/05/18 10/04/20 History loratadine [Claritin] 10 mg PO DAILY PRN 09/05/18 10/04/20 History nitroglycerin 1 spry SUBLINGUAL UD PRN 09/05/18 10/04/20 History prednisone 20 mg PO UD PRN 09/05/18 10/04/20 History Dulera 2 puff INHALATION BID 07/08/19 10/04/20 History albuterol sulfate [Ventolin HFA] 2 puff INHALATION Q4H PRN 07/08/19 10/04/20 History trazodone 50 mg PO HS 07/08/19 10/04/20 History insulin admin supplies #1 ea 07/12/19 03/19/20 Rx Entresto 1 tab PO BID 03/19/20 10/04/20 History atorvastatin 80 mg PO DAILY 03/19/20 10/04/20 History clopidogrel [Plavix] 75 mg PO DAILY 03/19/20 10/04/20 History fenofibrate micronized 134 mg PO DAILY 03/19/20 10/04/20 History fluticasone propionate [Flonase 2 spray INTRANASAL DAILY 03/19/20 10/04/20 History Allergy Relief] isosorbide dinitrate 10 mg PO BID 03/19/20 10/04/20 History metoprolol succinate [Toprol XL] 25 mg PO DAILY 03/19/20 10/04/20 History torsemide 10 mg PO DAILY 03/19/20 10/04/20 History Basaglar KwikPen U-100 Insulin 25 unit SUBCUT HS 10/04/20 10/04/20 History Basaglar KwikPen U-100 Insulin 30 unit SUBCUT QAM 10/04/20 10/04/20 History Past Med/Surg History Medical History (Updated 10/04/20 @ 22:24 by Ligia Lizarraga MD) Anxiety CAD (coronary artery disease), [place] coronary artery "[place] 1998 followed by PCI, [place] 2005 followed by PCI, non-STEMI 2016 followed by CABG" COPD (chronic obstructive pulmonary disease) Depression Left bundle branch block (LBBB) on electrocardiogram Obesity (BMI 30-39.9) Family History Other Family history non-contributory Social History Smoking Status: Current every day smoker Cigarettes Per Day: 20; Second Hand Exposure: No; Hx Alcohol Use: No Hx Substance Use: No Preferred Language: [place]serratian Communication Ability: Effective 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 Beliefs That Will Affect Care: None marital status: / Current Living Situation: Alone Feels Safe at Home: Yes Assistive Devices: None Review of Systems Review of Systems: All systems reviewed & are unremarkable except as noted in HPI & below Physical Exam Constitutional: + well hydrated; no acute distress Eyes: PERRL, conjunctivae normal, anicteric sclerae ENMT: external ear and nose normal, oropharynx normal Respiratory: normal respiratory effort, lungs clear to auscultation Cardiovascular: Rate/Rhythm: regular rate and regular rhythm S1-S2 Chest (Breasts): Additional Comments: No chest wall tenderness Gastrointestinal (Abdomen): normal bowel sounds, soft, nontender, no hepatosplenomegaly Musculoskeletal: [place] mildly reduced in lower extremity compared to upper extremity Trace pedal edema Neurologic: PERRL, EOMI, accommodation nl, no face palsy, no dysarthria Psychiatric: A+Ox3, euthymic affect Genitourinary: no CVA tenderness Results & Data Results & Data ([facility]) Vital Signs (Past 12 Hours) Vital Signs Temp Pulse Pulse Resp BP BP Pulse Ox 10/04/20 20:00 64 18 129/58 L 94 10/04/20 18:30 60 21 127/56 L 95 10/04/20 18:23 60 14 131/55 L 95 10/04/20 17:08 36.4 C L 63 20 141/64 H 95 Laboratory Results Laboratory Results - last 24 hr 10/04/20 10/04/20 10/04/20 18:17 18:17 18:17 WBC 13.52 H RBC 4.92 Hgb 15.8 Hct 45.7 MCV 92.9 MCH 32.1 MCHC 34.6 RDW Std Deviation 45.1 RDW Coeff of Shellie 13.2 Plt Count 400 MPV 10.2 Immature Gran % (Auto) 0.3 Neut % (Auto) 81.1 Lymph % (Auto) 10.9 [place] % (Auto) 7.5 Eos % (Auto) 0.1 Baso % (Auto) 0.1 Neut # (Auto) 10.96 H Lymph # (Auto) 1.47 [place] # (Auto) 1.02 H Eos # (Auto) 0.02 Baso # (Auto) 0.01 Immature Gran # (Auto) 0.04 H PT 11.7 INR 1.1 APTT 34.9 H PTT Ratio 1.3 Sodium 143 Potassium 4.1 Chloride 107 Carbon Dioxide 30 Anion Gap 6.0 BUN 20 H Creatinine 0.99 Est Cr Clr Drug Dosing Not Reportable Est GFR ( Amer) 86.0 Est GFR (Non-Af Amer) 74.2 BUN/Creatinine Ratio 19.9 Glucose 111 H Calcium 8.7 Magnesium 1.7 L Total Bilirubin 0.4 AST 27 ALT 23 Alkaline Phosphatase 72 Total Creatine Kinase 689 H Troponin I 0.078 H* Total Protein 7.5 Albumin 3.6 Globulin 3.9 Albumin/Globulin Ratio 0.9 TSH 3.900 Specimen Hemolysis COVID-19 Eval Order SARS-CoV-2, RNA, NAAT 10/04/20 10/04/20 18:18 18:18 WBC RBC Hgb Hct MCV MCH MCHC RDW Std Deviation RDW Coeff of Shellie Plt Count MPV Immature Gran % (Auto) Neut % (Auto) Lymph % (Auto) [place] % (Auto) Eos % (Auto) Baso % (Auto) Neut # (Auto) Lymph # (Auto) [place] # (Auto) Eos # (Auto) Baso # (Auto) Immature Gran # (Auto) PT INR APTT PTT Ratio Sodium Potassium Chloride Carbon Dioxide Anion Gap BUN Creatinine Est Cr Clr Drug Dosing Est GFR ( Amer) Est GFR (Non-Af Amer) BUN/Creatinine Ratio Glucose Calcium Magnesium Total Bilirubin AST ALT Alkaline Phosphatase Total Creatine Kinase Troponin I Total Protein Albumin Globulin Albumin/Globulin Ratio TSH Specimen Hemolysis COVID-19 Eval [facility] SARS-CoV-2, RNA, NAAT NEGATIVE Diagnostic Findings Chest x-ray An AP, portable, upright chest radiograph is compared to study dated 03/24/2020 and correlated with chest CT dated 09/05/2018. The patient is status post midline sternotomy. A 3-lead cardiac AICD is unchanged in position. The heart is enlarged noting atherosclerotic calcification of the thoracic aorta. There is mild pulmonary vascular congestion. A small chronic pleural effusion is seen at the left lung base with associated consolidation. Foci of parenchymal scarring are again seen in the left upper lung. No pneumothorax is seen. The skeletal structures are osteopenic. The bony thorax is grossly intact. Calcific tendinopathy is noted in the right shoulder. IMPRESSION: 1. Cardiomegaly and AICD with mild pulmonary vascular congestion. 2. There is a small chronic left pleural effusion with associated left basilar opacities. CT SCAN OF THE BRAIN WITHOUT IV CONTRAST CLINICAL HISTORY: Generalized weakness. COMPARISON STUDY: No priors. TECHNIQUE: Unenhanced axial CT scan of the brain is performed from the vertex to the skull base. A dose lowering technique was utilized adhering to the principles of ALARA. CT DOSE: 884.08 mGy.cm FINDINGS: Brain parenchyma: There are age-related involutional changes noting moderate to advanced subcortical and periventricular microangiopathic change. There is no hemorrhage, mass effect, or evidence of acute territorial ischemia by CT criteria. Peng-white matter differentiation is preserved. No extra-axial fluid collection is seen. Ventricles, sulci, cisterns: Prominent secondary to involutional change. Intracranial vasculature: There is atherosclerotic calcification of the cavernous carotid and vertebral arteries. Calvarium: Unremarkable. Sinuses and mastoids: The visualized paranasal sinuses are clear. The mastoid air cells are well pneumatized. Orbits: The bony orbits are grossly intact. There are bilateral ocular lens implants. IMPRESSION: There is no hemorrhage, mass effect, or evidence of acute territorial ischemia by CT criteria Code Status & VTE Plan VTE Prophylaxis Plan VTE Prophylaxis will be ordered: Yes (1) CAD (coronary artery disease), [place] coronary artery [place] vs. transplanted heart: [place] heart Associated angina: angina presence unspecified Qualified Code(s): I25.10 - Atherosclerotic heart disease of [place] coronary artery without angina pectoris (2) Hypertension Hypertension type: essential hypertension Qualified Code(s): I10 - Essential (primary) hypertension
[2020-10-04] MEDS ORDERED: MAGNESIUM SULFATE / D5W 1 GM/100 ML BAG IV ONE (23:17)
[2020-10-04] MEDS ORDERED: GLUCOSE 40% GEL 15 GM TUBE PO PRN (23:17)
[2020-10-04] MEDS ORDERED: ALBUTEROL HFA 8 GM INHALER INH PRN (23:17)
[2020-10-04] MEDS ORDERED: CARBOHYDRATES FOR HYPOGLYCEMIA PO PRN (23:17)
[2020-10-04] MEDS ORDERED: GLUCOSE 10 TABS/TUBE PO PRN (23:17)
[2020-10-04] MEDS ORDERED: GLUCAGON FOR INJ 1 MG VIAL SQ PRN (23:17)
[2020-10-04] MEDS ORDERED: DEXTROSE 50% 50 ML SYRINGE IV PRN (23:17)
[2020-10-04] MEDS ORDERED: NICOTINE POLACRILEX 2 MG GUM MT PRN (23:52)
[2020-10-05] MEDS: ISOSORBIDE DINITRATE 10 MG TAB PO SCH ×3 (00:31→14:34)
[2020-10-05] MEDS: SACUBITRIL-VALSARTAN 24-26 MG TAB PO SCH ×3 (00:31→20:36)
[2020-10-05 03:49] LABS: Appearance Urine Clear (Clear); Bacteria Urine Automated Negative (Negative); Bilirubin Urine Negative (Negative); Blood Urine Negative (Negative); Color Urine Dark Yellow; Glucose Urine UA 1+ (Negative); Ketones Urine Trace (Negative); Leukocyte Esterase Urine Negative (Negative); Nitrite Urine Negative (Negative); Protein Urine 2+ (Negative); RBC Urine Automated 0-4 /hpf (0-4); Specific Gravity Urine 1.027 (1.000-1.030); Urobilinogen Urine Negative (Negative)
[2020-10-05 07:02] LABS: Hematocrit (blood only) 40.4 % (42-52); Hemoglobin 13.5 g/dL (14.0-18.0); Mean Corpuscular Hemoglobin 31.4 pg (25-34); Mean Corpuscular Hgb Conc 33.4 g/dL (32-36); Mean Platelet Volume 10.4 fL (7.4-10.4); Platelet Count 348 K/uL (130-400); RDW Coefficient of Variation 13.4 % (11.5-14.5); White Blood Count 9.04 K/uL (4.8-10.8)
[2020-10-05 07:34] LABS: Albumin Level 2.9 gm/dl (3.4-5.0); BUN Creatinine Ratio 24.1 (10-20); Calcium 8.2 mg/dl (8.5-10.1); Creatinine Clr Calc Pharmacy 78.9 ml/min; Est GFR (African American) 92.7; Potassium 3.5 mmol/L (3.5-5.1)
[2020-10-05 07:49] LABS: Albumin Globulin Ratio 0.9 (0.9-2); Bilirubin,Total 0.3 mg/dl (0.2-1); Globulin 3.1 gm/dl (2.5-4.0); Phosphorus 3.9 mg/dl (2.5-4.9)
[2020-10-05] MEDS ORDERED: TRICOR~ORDER AWAITING ACTION SCH (08:00)
[2020-10-05] MEDS: ASPIRIN 81 MG ECTAB PO SCH (08:02)
[2020-10-05] MEDS: CLOPIDOGREL BISULFATE 75 MG TAB PO SCH (08:03)
[2020-10-05] MEDS: METOPROLOL SUCC 25MG EXT REL TAB PO SCH (08:03)
[2020-10-05] MEDS: TORSEMIDE 10 MG TAB PO SCH (08:03)
[2020-10-05] MEDS: FLUTICASONE/VILANTEROL 100/25MCG 14 PUFFS/INHALER INH SCH (08:04)
[2020-10-05] MEDS: ATORVASTATIN 40 MG TAB PO SCH (08:04)
[2020-10-05] MEDS: ENOXAPARIN INJ 40 MG/0.4 ML SYR SQ SCH ×2 (08:04→20:34)
[2020-10-05] MEDS: ESCITALOPRAM OXALATE 20 MG TAB PO SCH (08:05)
[2020-10-05] MEDS: INSULIN GLARGINE SOLOSTAR 100 UNITS/ML 3 ML PEN SQ SCH ×2 (08:08→20:35)
[2020-10-05] MEDS: INSULIN ASPART 100 UNITS/ML 3 ML PEN SC SCH ×4 (08:08→20:35)
[2020-10-05] MEDS ORDERED: POTASSIUM CHLORIDE CRTAB 20 MEQ TABCR PO ONE (09:00)
--- NOTE | 2020-10-05 11:22 | Electrocardiogram Report ---
Test Reason : Blood Pressure : / mmHG Vent. Rate : 062 BPM Atrial Rate : 062 BPM P-R Int : 124 ms QRS Dur : 176 ms QT Int : 516 ms P-R-T Axes : 082 -34 173 degrees QTc Int : 523 ms Suspect unspecified pacemaker failure Atrial-sensed ventricular-paced rhythm Abnormal ECG Confirmed by Herb Chou ([id number]) on 10/05/2020 11:22:37 AM Referred By: REFERRED SELF Confirmed By:Emile Chou
[2020-10-05] MEDS: FENOFIBRATE NANOCRYSTALLIZED 145 MG TABLET PO SCH (11:39)
[2020-10-05] MEDS ORDERED: ACETAMINOPHEN 325 MG TAB PO PRN (16:17)
--- NOTE | 2020-10-05 17:18 | Cardiology Consultation ---
Date of Consultation October 05, 2020 Assessment & Plan (1) Fall: (2) Weakness: (3) Acute on chronic congestive heart failure: (4) Ischemic cardiomyopathy: Patient describes presentation for fall, generalized weakness. He notes marked debilitation. He once again brings up that his daughter in 2019, and his spouse shortly thereafter. He has caregivers, but I get the sense that he could use more support at home. He had been admitted for an acute decompensation of systolic heart failure in March,, LVEF in the range of 35% at that time, prompting implant of cardiac resynchronization ICD. His ejection fraction has actually not been reassessed since implant, and I have therefore requested a repeat echocardiogram. Device interrogation performed as last interrogation had been on 05/15/2020. Patient 95% biventricular paced, 4% PVC burden, generator longevity 6 years. No significant arrhythmias to correlate with his recent falls. 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 The elevation in the CPK is likely due to an being on the floor for 6 hours post fall. Continue his chronic outpatient medical therapy including aspirin, clopidogrel, atorvastatin, Isordil, metoprolol succinate, Entresto, and torsemide, and TriCor. Agree with physical therapy assessment to see if he may benefit from at home or inpatient therapy to get him stronger. Agree with subcutaneous Lovenox for DVT prophylaxis. History of Present Illness Attending Physician: Romeo Rolon MD History of Present Illness Collin Al is a 75-year-old male seen in cardiology consultation per the request of Dr. Rolon for evaluation of fall and elevation in the troponin I. The patient is well-known to our cardiology service. He follows with Dr. 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 He describes recent falls, he believes he has fallen eight times recently. Yesterday, he was too weak to get himself up, he tried to utilize the arms of the chair, but he was unable to get up, and he believes he was on the floor for approximately 6 hours. He denies any chest discomfort. He notes chronic shortness of breath that is unchanged. No recent anginal symptoms. Per his description, it sounds as if his symptoms are due to generalized leg weakness rather than deirdre syncope. Outpatient Problem List: 1.Atherosclerotic coronary disease status post prior coronary stenting of the LAD in 1998, right coronary artery in 2005. 2.Crescendo angina in a setting of paroxysmal atrial fibrillation, acute emotional stressors, June 2017, culminating in cardiac catheterization with left main coronary disease and subsequent coronary bypass grafting, receiving YAN graft to LAD, saphenous vein graft to the ramus, saphenous vein graft to the circumflex on 06/19/2017. 3.Hypertension. 4.Left bundle-branch block. 5.Moderate LV systolic dysfunction, LVEF 35 to 40%, echo, March, this prompted implantation of biventricular pacemaker ICD, with right atrial lead, right ventricular lead,and HIS lead (acting at LV lead) 03/23/20 6.Chronic obstructive lung disease, Allergies Allergy/AdvReac Type Severity Reaction Status Date / Time VELMA Inhibitors Allergy Unknown unknown Verified 03/19/20 20:00 Home Medications Medication Instructions Recorded Confirmed Type aspirin 81 mg PO DAILY 09/05/18 10/04/20 History calcipotriene [Dovonex] 1 applic TOPICAL BID 09/05/18 10/04/20 History escitalopram oxalate 20 mg PO DAILY 09/05/18 10/04/20 History loratadine [Claritin] 10 mg PO DAILY PRN 09/05/18 10/04/20 History nitroglycerin 1 spry SUBLINGUAL UD PRN 09/05/18 10/04/20 History prednisone 20 mg PO UD PRN 09/05/18 10/04/20 History Dulera 2 puff INHALATION BID 07/08/19 10/04/20 History albuterol sulfate [Ventolin HFA] 2 puff INHALATION Q4H PRN 07/08/19 10/04/20 History trazodone 50 mg PO HS 07/08/19 10/04/20 History insulin admin supplies #1 ea 07/12/19 03/19/20 Rx Entresto 1 tab PO BID 03/19/20 10/04/20 History atorvastatin 80 mg PO DAILY 03/19/20 10/04/20 History clopidogrel [Plavix] 75 mg PO DAILY 03/19/20 10/04/20 History fenofibrate micronized 134 mg PO DAILY 03/19/20 10/04/20 History fluticasone propionate [Flonase 2 spray INTRANASAL DAILY 03/19/20 10/04/20 History Allergy Relief] isosorbide dinitrate 10 mg PO BID 03/19/20 10/04/20 History metoprolol succinate [Toprol XL] 25 mg PO DAILY 03/19/20 10/04/20 History torsemide 10 mg PO DAILY 03/19/20 10/04/20 History Basaglar KwikPen U-100 Insulin 25 unit SUBCUT HS 10/04/20 10/04/20 History Basaglar KwikPen U-100 Insulin 30 unit SUBCUT QAM 10/04/20 10/04/20 History Patient History Medical History Anxiety CAD (coronary artery disease), [place] coronary artery "[place] 1998 followed by PCI[place] 2005 followed by PCI, non-STEMI 2016 followed by CABG" COPD (chronic obstructive pulmonary disease) Depression Left bundle branch block (LBBB) on electrocardiogram Obesity (BMI 30-39.9) Family History Other Family history non-contributory Social History Smoking Status: Current every day smoker Cigarettes Per Day: 20; Second Hand Exposure: No; Do You Dip or Chew Tobacco: No; Hx Alcohol Use: No Hx Substance Use: No Preferred Language: Arabic Communication Ability: Effective 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 Beliefs That Will Affect Care: None marital status: / Current Living Situation: Alone Current Living Situation Comment: lives in One story home Feels Safe at Home: Yes Safety Concerns: Feels Safe At This Time Assistive Devices: Denture - Upper and Denture - Lower Review of Systems Review of Systems: All systems reviewed & are unremarkable except as noted in HPI & below Physical Exam Physical Exam: Temp Pulse Resp BP Pulse Ox 37.1 C 62 18 106/50 L 94 10/05/20 16:03 10/05/20 17:01 10/05/20 16:03 10/05/20 16:03 10/05/20 16:03 Constitutional: Chronically ill in appearance no acute distress Respiratory: Minimally decreased breath sounds no rales rhonchi or wheezing Cardiovascular: Rate/Rhythm: regular rhythm Vessels: no JVD Extremities: + edema (Trace lower extremity edema) Gastrointestinal (Abdomen): normal bowel sounds, soft, nontender, no hepatosplenomegaly Neurologic: PERRL, EOMI, accommodation nl, no face palsy, no dysarthria Results & Data ([facility]) Vital Signs (Past 12 Hours) Vital Signs Temp Pulse Pulse Resp BP BP Pulse Ox 10/05/20 17:01 62 10/05/20 16:03 37.1 C 62 18 106/50 L 94 10/05/20 11:17 36.5 C 70 16 142/64 H 93 10/05/20 08:30 61 10/05/20 07:29 36.7 C 59 L 16 138/49 L 95 Laboratory Results Cardiac Enzymes 10/04/20 10/05/20 10/05/20 Range/Units 18:17 00:15 05:52 AST 27 27 (15-37) U/L Troponin I 0.078 H* 0.084 H* (0-0.045) ng/ml 10/05/20 Range/Units 05:52 AST (15-37) U/L Troponin I 0.067 H* (0-0.045) ng/ml Coagulation 10/04/20 Range/Units 18:17 PT 11.7 (9.0-12.0) Seconds APTT 34.9 H (21.0-31.0) Seconds CBC 10/04/20 10/05/20 Range/Units 18:17 05:52 WBC 13.52 H 9.04 (4.8-10.8) K/uL RBC 4.92 4.30 L (4.7-6.1) M/uL Hgb 15.8 13.5 L (14.0-18.0) g/dL Hct 45.7 40.4 L (42-52) % Plt Count 400 348 (130-400) K/uL Neut # (Auto) 10.96 H (1.4-6.5) K/uL Lymph # (Auto) 1.47 (1.2-3.4) K/uL [place] # (Auto) 1.02 H (0.11-0.59) K/uL Eos # (Auto) 0.02 (0-0.5) K/uL Baso # (Auto) 0.01 (0-0.2) K/uL Comprehensive Metabolic Panel 10/04/20 10/05/20 Range/Units 18:17 05:52 Sodium 143 143 (136-145) mmol/L Potassium 4.1 3.5 (3.5-5.1) mmol/L Chloride 107 108 H (98-107) mmol/L Carbon Dioxide 30 30 (21-32) mmol/L BUN 20 H 22 H (7-18) mg/dl Creatinine 0.99 0.93 (0.6-1.4) mg/dl Glucose 111 H 188 H (70-99) mg/dl Calcium 8.7 8.2 L (8.5-10.1) mg/dl AST 27 27 (15-37) U/L ALT 23 19 (12-78) U/L Alkaline Phosphatase 72 58 (45-117) U/L Total Protein 7.5 6.0 L (6.4-8.2) gm/dl Albumin 3.6 2.9 L (3.4-5.0) gm/dl Intake and Output 10/05/20 10/05/20 10/05/20 06:59 14:59 22:59 Intake Total 300 / 800 160 / 160 Output Total 300 / 300 Balance 0 / 500 159 / 159 Intake: IV 100 / 600 MAGNESIUM SULFATE / D5W 1 gm In 100 / 100 100 ml @ 50 mls/hr IV ONE ONE Rx#:[id number] Oral 200 / 200 160 / 160 Output: Urine 300 / 300 # Bowel Movements Other: # Unmeasured Voids 3 Weight 104.1 kg Weight Measurement Method Standing Scale Diagnostic Findings EKG performed 10/04/2020 and reviewed independently revealed sinus rhythm with atrial sensed, ventricular paced rhythm with one-to-one capture.
--- NOTE | 2020-10-05 17:53 | Hospitalist Progress Note ---
Date of Service October 05, 2020 Assessment & Plan (1) Weakness: (2) Elevated troponin I level: (3) Ischemic cardiomyopathy: (4) CAD (coronary artery disease), [place] coronary artery: (5) Diabetes mellitus, type 2: (6) Hypertension: (7) Status post coronary artery bypass grafting: (8) Tobacco use: (9) Fall: (10) Anxiety: Generalized weakness Fall at home Elevated troponin According to patient, weakness has been progressive CT head was unremarkable for acute abnormality Fall precautions PT/OT evaluation Got IV fluids in ER. We will not continue IV fluids at this time. Follow-up CPK Trend troponins EKG showed atrial sensed ventricular paced rhythm. Telemetry monitoring Cardiology consulted, device check ok Echo ordered Hypomagnesemia. Mag is 1.7 on admission. Replete and monitor CAD status post CABG Ischemic cardiomyopathy with EF of 35 to 40% Continue home medication including aspirin, atorvastatin Continue Entresto and isosorbide dinitrate Continue metoprolol XL Resume Lasix Diabetes mellitus type 2 Continue home insulin regimen Insulin sliding scale Carbohydrate controlled diet Monitor blood glucose Anxiety Continue home citalopram Tobacco use Counseled patient extensively on need for smoking cessation Nicotine patch DVT prophylaxis Lovenox subcu Admission and Anticipated Discharge Date Admission Date: October 04, 2020 Subjective Pt seen in follow up of weakness, falls, elev. trop, pt s/p AICD. Currently pt is laying in bed in NAD. Reports that his legs were very weak and he could not stand up at home. Now he was able to walk w/ assistance to the bathroom. Currently denies any chest pain, shortness of breath. Review of Systems Review of Systems: All systems reviewed & are unremarkable except as noted in HPI & below Constitutional: + weakness (generalized); no fever and no chills Respiratory: no cough and no dyspnea Cardiovascular: no chest pain and no palpitations Gastrointestinal: no abdominal pain, no nausea and no vomiting Genitourinary: no dysuria Physical Exam Physical Exam: Constitutional: obese elderly male, + well hydrated; no acute distress Eyes: PERRL, EOMI, conjunctivae normal, anicteric sclerae ENMT: external ear and nose normal, oropharynx normal Respiratory: normal respiratory effort, lungs clear to auscultation, but somewhat diminished, no wheezing rhonchi Cardiovascular: Rate/Rhythm: regular rate and regular rhythm S1-S2 Chest (Breasts): Additional Comments: No chest wall tenderness Gastrointestinal (Abdomen): normal bowel sounds, soft, nontender Musculoskeletal: moves extremities spontaneously, + LE edema, Trace pedal edema Neurologic: PERRL, EOMI, no face palsy, no dysarthria Psychiatric: A+Ox3, euthymic affect, answers questions appropriately Genitourinary: no CVA tenderness Results & Data Results & Data ([facility]) Vital Signs (Past 12 Hours) Vital Signs Temp Pulse Pulse Resp BP BP Pulse Ox 10/05/20 17:01 62 10/05/20 16:03 37.1 C 62 18 106/50 L 94 10/05/20 11:17 36.5 C 70 16 142/64 H 93 10/05/20 08:30 61 10/05/20 07:29 36.7 C 59 L 16 138/49 L 95 Laboratory Results 10/05/20 10/05/20 10/05/20 Range/Units 16:43 11:31 07:22 WBC (4.8-10.8) K/uL RBC (4.7-6.1) M/uL Hgb (14.0-18.0) g/dL Hct (42-52) % MCV (80-100) fL MCH (25-34) pg MCHC (32-36) g/dL RDW Std Deviation (36.4-46.3) fL RDW Coeff of Shellie (11.5-14.5) % Plt Count (130-400) K/uL MPV (7.4-10.4) fL Immature Gran % (Auto) % Neut % (Auto) % Lymph % (Auto) % [place] % (Auto) % Eos % (Auto) % Baso % (Auto) % Neut # (Auto) (1.4-6.5) K/uL Lymph # (Auto) (1.2-3.4) K/uL [place] # (Auto) (0.11-0.59) K/uL Eos # (Auto) (0-0.5) K/uL Baso # (Auto) (0-0.2) K/uL Immature Gran # (Auto) (0.00-0.02) K/uL PT (9.0-12.0) Seconds INR (0.9-1.1) APTT (21.0-31.0) Seconds PTT Ratio Sodium (136-145) mmol/L Potassium (3.5-5.1) mmol/L Chloride (98-107) mmol/L Carbon Dioxide (21-32) mmol/L Anion Gap (3-11) BUN (7-18) mg/dl Creatinine (0.6-1.4) mg/dl Est Cr Clr Drug Dosing Est GFR ( Amer) Est GFR (Non-Af Amer) BUN/Creatinine Ratio (10-20) Glucose (70-99) mg/dl POC Glucose 168 H 146 H 163 H (70-99) mg/dl Calcium (8.5-10.1) mg/dl Phosphorus (2.5-4.9) mg/dl Magnesium (1.8-2.4) mg/dl Total Bilirubin (0.2-1) mg/dl AST (15-37) U/L ALT (12-78) U/L Alkaline Phosphatase (45-117) U/L Total Creatine Kinase (39-308) U/L Troponin I (0-0.045) ng/ml Total Protein (6.4-8.2) gm/dl Albumin (3.4-5.0) gm/dl Globulin (2.5-4.0) gm/dl Albumin/Globulin Ratio (0.9-2) TSH (0.300-4.500) uIu/ml Specimen Hemolysis Urine Color Urine Appearance (Clear) Urine pH (4.5-7.5) Ur Specific [place] (1.000-1.030) Urine Protein (Negative) Urine Glucose (UA) (Negative) Urine Ketones (Negative) Urine Blood (Negative) Urine Nitrite (Negative) Urine Bilirubin (Negative) Urine Urobilinogen (Negative) Ur Leukocyte Esterase (Negative) Urine WBC (Auto) (0-5) /hpf Urine RBC (Auto) (0-4) /hpf U Hyaline Cast (Auto) (0-5) /lpf U Epithel Cells (Auto) (0-5) /lpf Urine Bacteria (Auto) (Negative) COVID-19 Eval Order SARS-CoV-2, RNA, NAAT (NEGATIVE) 10/05/20 10/05/20 10/05/20 Range/Units 05:52 05:52 05:52 WBC 9.04 (4.8-10.8) K/uL RBC 4.30 L (4.7-6.1) M/uL Hgb 13.5 L (14.0-18.0) g/dL Hct 40.4 L (42-52) % MCV 94.0 (80-100) fL MCH 31.4 (25-34) pg MCHC 33.4 (32-36) g/dL RDW Std Deviation 46.0 (36.4-46.3) fL RDW Coeff of Shellie 13.4 (11.5-14.5) % Plt Count 348 (130-400) K/uL MPV 10.4 (7.4-10.4) fL Immature Gran % (Auto) % Neut % (Auto) % Lymph % (Auto) % [place] % (Auto) % Eos % (Auto) % Baso % (Auto) % Neut # (Auto) (1.4-6.5) K/uL Lymph # (Auto) (1.2-3.4) K/uL [place] # (Auto) (0.11-0.59) K/uL Eos # (Auto) (0-0.5) K/uL Baso # (Auto) (0-0.2) K/uL Immature Gran # (Auto) (0.00-0.02) K/uL PT (9.0-12.0) Seconds INR (0.9-1.1) APTT (21.0-31.0) Seconds PTT Ratio Sodium 143 (136-145) mmol/L Potassium 3.5 (3.5-5.1) mmol/L Chloride 108 H (98-107) mmol/L Carbon Dioxide 30 (21-32) mmol/L Anion Gap 5.0 (3-11) BUN 22 H (7-18) mg/dl Creatinine 0.93 (0.6-1.4) mg/dl Est Cr Clr Drug Dosing 78.9 Est GFR ( Amer) 92.7 Est GFR (Non-Af Amer) 80.0 BUN/Creatinine Ratio 24.1 H (10-20) Glucose 188 H (70-99) mg/dl POC Glucose (70-99) mg/dl Calcium 8.2 L (8.5-10.1) mg/dl Phosphorus 3.9 (2.5-4.9) mg/dl Magnesium 2.0 (1.8-2.4) mg/dl Total Bilirubin 0.3 (0.2-1) mg/dl AST 27 (15-37) U/L ALT 19 (12-78) U/L Alkaline Phosphatase 58 (45-117) U/L Total Creatine Kinase 785 H (39-308) U/L Troponin I 0.067 H* (0-0.045) ng/ml Total Protein 6.0 L (6.4-8.2) gm/dl Albumin 2.9 L (3.4-5.0) gm/dl Globulin 3.1 (2.5-4.0) gm/dl Albumin/Globulin Ratio 0.9 (0.9-2) TSH (0.300-4.500) uIu/ml Specimen Hemolysis Urine Color Urine Appearance (Clear) Urine pH (4.5-7.5) Ur Specific [place] (1.000-1.030) Urine Protein (Negative) Urine Glucose (UA) (Negative) Urine Ketones (Negative) Urine Blood (Negative) Urine Nitrite (Negative) Urine Bilirubin (Negative) Urine Urobilinogen (Negative) Ur Leukocyte Esterase (Negative) Urine WBC (Auto) (0-5) /hpf Urine RBC (Auto) (0-4) /hpf U Hyaline Cast (Auto) (0-5) /lpf U Epithel Cells (Auto) (0-5) /lpf Urine Bacteria (Auto) (Negative) COVID-19 Eval Order SARS-CoV-2, RNA, NAAT (NEGATIVE) 10/05/20 10/05/20 10/04/20 Range/Units 03:00 00:15 23:14 WBC (4.8-10.8) K/uL RBC (4.7-6.1) M/uL Hgb (14.0-18.0) g/dL Hct (42-52) % MCV (80-100) fL MCH (25-34) pg MCHC (32-36) g/dL RDW Std Deviation (36.4-46.3) fL RDW Coeff of Shellie (11.5-14.5) % Plt Count (130-400) K/uL MPV (7.4-10.4) fL Immature Gran % (Auto) % Neut % (Auto) % Lymph % (Auto) % [place] % (Auto) % Eos % (Auto) % Baso % (Auto) % Neut # (Auto) (1.4-6.5) K/uL Lymph # (Auto) (1.2-3.4) K/uL [place] # (Auto) (0.11-0.59) K/uL Eos # (Auto) (0-0.5) K/uL Baso # (Auto) (0-0.2) K/uL Immature Gran # (Auto) (0.00-0.02) K/uL PT (9.0-12.0) Seconds INR (0.9-1.1) APTT (21.0-31.0) Seconds PTT Ratio Sodium (136-145) mmol/L Potassium (3.5-5.1) mmol/L Chloride (98-107) mmol/L Carbon Dioxide (21-32) mmol/L Anion Gap (3-11) BUN (7-18) mg/dl Creatinine (0.6-1.4) mg/dl Est Cr Clr Drug Dosing Est GFR ( Amer) Est GFR (Non-Af Amer) BUN/Creatinine Ratio (10-20) Glucose (70-99) mg/dl POC Glucose 225 H (70-99) mg/dl Calcium (8.5-10.1) mg/dl Phosphorus (2.5-4.9) mg/dl Magnesium (1.8-2.4) mg/dl Total Bilirubin (0.2-1) mg/dl AST (15-37) U/L ALT (12-78) U/L Alkaline Phosphatase (45-117) U/L Total Creatine Kinase (39-308) U/L Troponin I 0.084 H* (0-0.045) ng/ml Total Protein (6.4-8.2) gm/dl Albumin (3.4-5.0) gm/dl Globulin (2.5-4.0) gm/dl Albumin/Globulin Ratio (0.9-2) TSH (0.300-4.500) uIu/ml Specimen Hemolysis Urine Color Dark Yellow Urine Appearance Clear (Clear) Urine pH 5.0 (4.5-7.5) Ur Specific [place] 1.027 (1.000-1.030) Urine Protein 2+ H (Negative) Urine Glucose (UA) 1+ H (Negative) Urine Ketones Trace H (Negative) Urine Blood Negative (Negative) Urine Nitrite Negative (Negative) Urine Bilirubin Negative (Negative) Urine Urobilinogen Negative (Negative) Ur Leukocyte Esterase Negative (Negative) Urine WBC (Auto) 1-5 (0-5) /hpf Urine RBC (Auto) 0-4 (0-4) /hpf U Hyaline Cast (Auto) 5-10 H (0-5) /lpf U Epithel Cells (Auto) 10-20 H (0-5) /lpf Urine Bacteria (Auto) Negative (Negative) COVID-19 Eval Order SARS-CoV-2, RNA, NAAT (NEGATIVE) 10/04/20 10/04/20 10/04/20 Range/Units 18:18 18:18 18:17 WBC (4.8-10.8) K/uL RBC (4.7-6.1) M/uL Hgb (14.0-18.0) g/dL Hct (42-52) % MCV (80-100) fL MCH (25-34) pg MCHC (32-36) g/dL RDW Std Deviation (36.4-46.3) fL RDW Coeff of Shellie (11.5-14.5) % Plt Count (130-400) K/uL MPV (7.4-10.4) fL Immature Gran % (Auto) % Neut % (Auto) % Lymph % (Auto) % [place] % (Auto) % Eos % (Auto) % Baso % (Auto) % Neut # (Auto) (1.4-6.5) K/uL Lymph # (Auto) (1.2-3.4) K/uL [place] # (Auto) (0.11-0.59) K/uL Eos # (Auto) (0-0.5) K/uL Baso # (Auto) (0-0.2) K/uL Immature Gran # (Auto) (0.00-0.02) K/uL PT (9.0-12.0) Seconds INR (0.9-1.1) APTT (21.0-31.0) Seconds PTT Ratio Sodium 143 (136-145) mmol/L Potassium 4.1 (3.5-5.1) mmol/L Chloride 107 (98-107) mmol/L Carbon Dioxide 30 (21-32) mmol/L Anion Gap 6.0 (3-11) BUN 20 H (7-18) mg/dl Creatinine 0.99 (0.6-1.4) mg/dl Est Cr Clr Drug Dosing Not Reportable Est GFR ( Amer) 86.0 Est GFR (Non-Af Amer) 74.2 BUN/Creatinine Ratio 19.9 (10-20) Glucose 111 H (70-99) mg/dl POC Glucose (70-99) mg/dl Calcium 8.7 (8.5-10.1) mg/dl Phosphorus (2.5-4.9) mg/dl Magnesium 1.7 L (1.8-2.4) mg/dl Total Bilirubin 0.4 (0.2-1) mg/dl AST 27 (15-37) U/L ALT 23 (12-78) U/L Alkaline Phosphatase 72 (45-117) U/L Total Creatine Kinase 689 H (39-308) U/L Troponin I 0.078 H* (0-0.045) ng/ml Total Protein 7.5 (6.4-8.2) gm/dl Albumin 3.6 (3.4-5.0) gm/dl Globulin 3.9 (2.5-4.0) gm/dl Albumin/Globulin Ratio 0.9 (0.9-2) TSH 3.900 (0.300-4.500) uIu/ml Specimen Hemolysis Urine Color Urine Appearance (Clear) Urine pH (4.5-7.5) Ur Specific [place] (1.000-1.030) Urine Protein (Negative) Urine Glucose (UA) (Negative) Urine Ketones (Negative) Urine Blood (Negative) Urine Nitrite (Negative) Urine Bilirubin (Negative) Urine Urobilinogen (Negative) Ur Leukocyte Esterase (Negative) Urine WBC (Auto) (0-5) /hpf Urine RBC (Auto) (0-4) /hpf U Hyaline Cast (Auto) (0-5) /lpf U Epithel Cells (Auto) (0-5) /lpf Urine Bacteria (Auto) (Negative) COVID-19 Eval Order Covid19 IDNow atMMOC SARS-CoV-2, RNA, NAAT NEGATIVE (NEGATIVE) 10/04/20 10/04/20 Range/Units 18:17 18:17 WBC 13.52 H (4.8-10.8) K/uL RBC 4.92 (4.7-6.1) M/uL Hgb 15.8 (14.0-18.0) g/dL Hct 45.7 (42-52) % MCV 92.9 (80-100) fL MCH 32.1 (25-34) pg MCHC 34.6 (32-36) g/dL RDW Std Deviation 45.1 (36.4-46.3) fL RDW Coeff of Shellie 13.2 (11.5-14.5) % Plt Count 400 (130-400) K/uL MPV 10.2 (7.4-10.4) fL Immature Gran % (Auto) 0.3 % Neut % (Auto) 81.1 % Lymph % (Auto) 10.9 % [place] % (Auto) 7.5 % Eos % (Auto) 0.1 % Baso % (Auto) 0.1 % Neut # (Auto) 10.96 H (1.4-6.5) K/uL Lymph # (Auto) 1.47 (1.2-3.4) K/uL [place] # (Auto) 1.02 H (0.11-0.59) K/uL Eos # (Auto) 0.02 (0-0.5) K/uL Baso # (Auto) 0.01 (0-0.2) K/uL Immature Gran # (Auto) 0.04 H (0.00-0.02) K/uL PT 11.7 (9.0-12.0) Seconds INR 1.1 (0.9-1.1) APTT 34.9 H (21.0-31.0) Seconds PTT Ratio 1.3 Sodium (136-145) mmol/L Potassium (3.5-5.1) mmol/L Chloride (98-107) mmol/L Carbon Dioxide (21-32) mmol/L Anion Gap (3-11) BUN (7-18) mg/dl Creatinine (0.6-1.4) mg/dl Est Cr Clr Drug Dosing Est GFR ( Amer) Est GFR (Non-Af Amer) BUN/Creatinine Ratio (10-20) Glucose (70-99) mg/dl POC Glucose (70-99) mg/dl Calcium (8.5-10.1) mg/dl Phosphorus (2.5-4.9) mg/dl Magnesium (1.8-2.4) mg/dl Total Bilirubin (0.2-1) mg/dl AST (15-37) U/L ALT (12-78) U/L Alkaline Phosphatase (45-117) U/L Total Creatine Kinase (39-308) U/L Troponin I (0-0.045) ng/ml Total Protein (6.4-8.2) gm/dl Albumin (3.4-5.0) gm/dl Globulin (2.5-4.0) gm/dl Albumin/Globulin Ratio (0.9-2) TSH (0.300-4.500) uIu/ml Specimen Hemolysis Urine Color Urine Appearance (Clear) Urine pH (4.5-7.5) Ur Specific [place] (1.000-1.030) Urine Protein (Negative) Urine Glucose (UA) (Negative) Urine Ketones (Negative) Urine Blood (Negative) Urine Nitrite (Negative) Urine Bilirubin (Negative) Urine Urobilinogen (Negative) Ur Leukocyte Esterase (Negative) Urine WBC (Auto) (0-5) /hpf Urine RBC (Auto) (0-4) /hpf U Hyaline Cast (Auto) (0-5) /lpf U Epithel Cells (Auto) (0-5) /lpf Urine Bacteria (Auto) (Negative) COVID-19 Eval Order SARS-CoV-2, RNA, NAAT (NEGATIVE) Medications Administered Current Inpatient Medications Acetaminophen (Acetaminophen 325 Mg Tab) 650 mg PO Q4H PRN PRN Reason: Pain Stop: 11/04/20 16:16 Last Admin: 10/05/20 16:28 Dose: 650 mg Documented by: Albuterol (Albuterol Hfa 8 Gm Inhaler) 2 puffs INH Q4H PRN PRN Reason: Shortness Of Breath Or Wheezing Stop: 11/03/20 23:16 Aspirin (Aspirin 81 Mg Ectab) 81 mg PO DAILY [facility] Stop: 11/04/20 08:59 Last Admin: 10/05/20 08:02 Dose: 81 mg Documented by: Atorvastatin Calcium (Atorvastatin 40 Mg Tab) 80 mg PO DAILY [facility] Stop: 11/04/20 08:59 Last Admin: 10/05/20 08:04 Dose: 80 mg Documented by: Clopidogrel Bisulfate (Clopidogrel Bisulfate 75 Mg Tab) 75 mg PO DAILY [facility] Stop: 11/04/20 08:59 Last Admin: 10/05/20 08:03 Dose: 75 mg Documented by: Dextrose (Dextrose 50% 50 Ml Syringe) 25 - 50 ml IV UD PRN; Protocol PRN Reason: Hypoglycemia Protocol Stop: 11/03/20 23:16 Enoxaparin Sodium (Enoxaparin Inj 40 Mg/0.4 Ml Syr) 40 mg SQ Q12H [facility] Stop: 11/04/20 08:59 Last Admin: 10/05/20 08:04 Dose: 40 mg Documented by: Escitalopram Oxalate (Escitalopram Oxalate 20 Mg Tab) 20 mg PO DAILY [facility] Stop: 11/04/20 08:59 Last Admin: 10/05/20 08:05 Dose: 20 mg Documented by: Fenofibrate (Fenofibrate Nanocrystallized 145 Mg Tablet) 145 mg PO DAILY [facility] Stop: 11/04/20 10:59 Last Admin: 10/05/20 11:39 Dose: 145 mg Documented by: Fluticasone/Vilanterol (Fluticasone/Vilanterol 100/25mcg 14 Puffs/Inhaler) 1 puffs INH DAILY [facility] Stop: 11/04/20 08:59 Last Admin: 10/05/20 08:04 Dose: 1 puffs Documented by: Glucagon (Glucagon For Inj 1 Mg Vial) 1 mg SQ UD PRN; Protocol PRN Reason: Hypoglycemia Protocol Stop: 11/03/20 23:16 Glucose (Glucose 10 Tabs/Tube) 4 - 8 tabs PO UD PRN; Protocol PRN Reason: Hypoglycemia Protocol Stop: 11/03/20 23:16 Glucose (Glucose 40% Gel 15 Gm Tube) 15 - 30 gm PO UD PRN; Protocol PRN Reason: Hypoglycemia Protocol Stop: 11/03/20 23:16 Insulin Aspart (Insulin Aspart 100 Units/Ml 3 Ml Pen) 0 units SC ACHS [facility] Stop: 11/04/20 07:29 Last Admin: 10/05/20 17:35 Dose: 4 units Documented by: Insulin Glargine (Insulin Glargine Solostar 100 Units/Ml 3 Ml Pen) 30 units SQ QAM [facility] Stop: 11/04/20 08:59 Last Admin: 10/05/20 08:08 Dose: 30 units Documented by: Insulin Glargine (Insulin Glargine Solostar 100 Units/Ml 3 Ml Pen) 25 units SQ HS [facility] Stop: 11/04/20 20:59 Isosorbide Dinitrate (Isosorbide Dinitrate 10 Mg Tab) 10 mg PO BID@0900,1400 [facility] Stop: 11/03/20 23:16 Last Admin: 10/05/20 14:34 Dose: 10 mg Documented by: Metoprolol Succinate (Metoprolol Succ 25mg Ext Rel Tab) 25 mg PO DAILY [facility] Stop: 11/04/20 08:59 Last Admin: 10/05/20 08:03 Dose: 25 mg Documented by: Miscellaneous (Dovonex~Order Awaiting Action) 1 ea N/A QS [facility] Stop: 11/04/20 07:59 Last Admin: 10/05/20 16:28 Dose: Not Given Documented by: Miscellaneous (Carbohydrates For Hypoglycemia ) 15 - 30 gm PO UD PRN PRN Reason: Hypoglycemia Protocol Stop: 11/03/20 23:16 Nicotine Polacrilex (Nicotine Polacrilex 2 Mg Gum) 1 piece MT Q4H PRN PRN Reason: Anxiety/Agitation Stop: 11/03/20 23:51 Sacubitril/Valsartan (Sacubitril-Valsartan 24-26 Mg Tab) 1 tab PO BID [facility] Stop: 11/03/20 23:16 Last Admin: 10/05/20 08:02 Dose: 1 tab Documented by: Torsemide (Torsemide 10 Mg Tab) 10 mg PO DAILY [facility] Stop: 11/04/20 08:59 Last Admin: 10/05/20 08:03 Dose: 10 mg Documented by: Trazodone HCl (Trazodone Hcl 50 Mg Tab) 50 mg PO HS [facility] Stop: 11/04/20 20:59 (1) CAD (coronary artery disease), [place] coronary artery [place] vs. transplanted heart: [place] heart Associated angina: angina presence unspecified Qualified Code(s): I25.10 - Atherosclerotic heart disease of [place] coronary artery without angina pectoris (2) Hypertension Hypertension type: essential hypertension Qualified Code(s): I10 - Essential (primary) hypertension
[2020-10-05] MEDS ORDERED: oxyCODONE HCL IR 5 MG TAB (IMMEDIATE RELEASE) PO STA (19:34)
[2020-10-05] MEDS: traZODone HCL 50 MG TAB PO SCH (20:34)
[2020-10-06 08:09] LABS: Albumin Level 2.8 gm/dl (3.4-5.0); BUN Creatinine Ratio 29.3 (10-20); Calcium 8.5 mg/dl (8.5-10.1); Creatinine Clr Calc Pharmacy 87.5 ml/min; Est GFR (African American) 99.3; Est GFR (Non-African American) 85.7; Potassium 3.8 mmol/L (3.5-5.1)
[2020-10-06 08:12] LABS: Albumin Globulin Ratio 0.8 (0.9-2); Bilirubin,Total 0.4 mg/dl (0.2-1); Globulin 3.4 gm/dl (2.5-4.0); Total Protein 6.2 gm/dl (6.4-8.2)
[2020-10-06] MEDS: TORSEMIDE 10 MG TAB PO SCH (08:32)
[2020-10-06] MEDS: METOPROLOL SUCC 25MG EXT REL TAB PO SCH (08:32)
[2020-10-06] MEDS: ESCITALOPRAM OXALATE 20 MG TAB PO SCH (08:32)
[2020-10-06] MEDS ORDERED: oxyCODONE HCL IR 5 MG TAB (IMMEDIATE RELEASE) PO STA ×2 (08:32→14:50)
[2020-10-06] MEDS: FLUTICASONE/VILANTEROL 100/25MCG 14 PUFFS/INHALER INH SCH (08:32)
[2020-10-06] MEDS: SACUBITRIL-VALSARTAN 24-26 MG TAB PO SCH ×2 (08:32→20:44)
[2020-10-06] MEDS: FENOFIBRATE NANOCRYSTALLIZED 145 MG TABLET PO SCH (08:33)
[2020-10-06] MEDS: ASPIRIN 81 MG ECTAB PO SCH (08:33)
[2020-10-06] MEDS: ATORVASTATIN 40 MG TAB PO SCH (08:33)
[2020-10-06] MEDS: CLOPIDOGREL BISULFATE 75 MG TAB PO SCH (08:33)
[2020-10-06] MEDS: ISOSORBIDE DINITRATE 10 MG TAB PO SCH ×2 (08:33→14:48)
[2020-10-06] MEDS: INSULIN GLARGINE SOLOSTAR 100 UNITS/ML 3 ML PEN SQ SCH ×2 (08:39→20:45)
[2020-10-06] MEDS: INSULIN ASPART 100 UNITS/ML 3 ML PEN SC SCH ×4 (08:39→20:45)
[2020-10-06] MEDS: ENOXAPARIN INJ 40 MG/0.4 ML SYR SQ SCH ×2 (08:42→20:43)
--- NOTE | 2020-10-06 08:59 | Hospitalist Progress Note ---
Date of Service October 06, 2020 Assessment & Plan (1) Weakness: (2) Elevated troponin I level: (3) Ischemic cardiomyopathy: (4) CAD (coronary artery disease), [place] coronary artery: (5) Diabetes mellitus, type 2: (6) Hypertension: (7) Status post coronary artery bypass grafting: (8) Tobacco use: (9) Fall: (10) Anxiety: Generalized weakness Fall at home Elevated troponin According to patient, weakness has been progressive CT head was unremarkable for acute abnormality Fall precautions PT/OT evaluation Got IV fluids in ER. We will not continue IV fluids at this time. Follow-up CPK Trend troponins EKG showed atrial sensed ventricular paced rhythm. Telemetry monitoring Cardiology consulted, device check ok Echo obtained - ongoing moderate left ventricular systolic function is likely present with ejection fraction estimated to be 35 to 40%. Hypomagnesemia. Mag is 1.7 on admission. Replete and monitor CAD status post CABG Ischemic cardiomyopathy with EF of 35 to 40% Continue home medication including aspirin, atorvastatin Continue Entresto and isosorbide dinitrate Continue metoprolol XL Resume Lasix RLE pain - R thigh pain - pt complains of increased pain, reports that he feels he pulled a muscle when he was trying to get up at home - tylenol and oxycodone ordered - will obtain XR of R LE (femur) Diabetes mellitus type 2 Continue home insulin regimen Insulin sliding scale Carbohydrate controlled diet Monitor blood glucose Anxiety Continue home citalopram Tobacco use Counseled patient extensively on need for smoking cessation Nicotine patch DVT prophylaxis Lovenox subcu Disposition: PT recommends inpt rehab, pt prefers to go home w/ HH. Daughter comes to visit over the weekend but otherwise pt is alone. Will discuss further w/ pt's daughter. CM aware. Admission and Anticipated Discharge Date Admission Date: October 06, 2020 Subjective Pt seen in follow up of weakness, falls, elev. trop, pt s/p AICD. Currently pt is laying in bed in NAD. Reports that his legs were very weak and he could not stand up at home. Now he is able to walk w/ assistance to the bathroom, however reports R LE pain, reports that he thinks he pulled his muscle when trying to get up at home. Currently denies any chest pain, shortness of breath. Discussed rehab, pt currently not interested and prefers HH. Will discuss w/ pt's daughter and CM. Review of Systems Review of Systems: All systems reviewed & are unremarkable except as noted in HPI & below Constitutional: + weakness (generalized); no fever and no chills Respiratory: no cough and no dyspnea Cardiovascular: no chest pain and no palpitations Gastrointestinal: no abdominal pain, no nausea and no vomiting Musculoskeletal: R thigh pain Physical Exam Physical Exam: Constitutional: obese elderly male, + well hydrated; no acute distress Eyes: PERRL, EOMI, conjunctivae normal, anicteric sclerae ENMT: external ear and nose normal, oropharynx normal Respiratory: normal respiratory effort, lungs clear to auscultation, but somewhat diminished, no wheezing rhonchi Cardiovascular: Rate/Rhythm: regular rate and regular rhythm S1-S2 Chest (Breasts): Additional Comments: No chest wall tenderness Gastrointestinal (Abdomen): normal bowel sounds, soft, nontender Musculoskeletal: moves extremities spontaneously, + trace LE edema, Trace pedal edema Neurologic: PERRL, EOMI, no face palsy, no dysarthria Psychiatric: A+Ox3, euthymic affect, answers questions appropriately Genitourinary: no CVA tenderness Results & Data Results & Data ([facility]) Vital Signs (Past 12 Hours) Vital Signs Temp Pulse Pulse Resp BP Pulse Ox 10/06/20 07:26 36.9 C 63 18 117/54 L 90 10/06/20 04:09 36.7 C 58 L 18 113/60 96 10/06/20 01:05 61 10/05/20 23:35 36.6 C 66 20 105/47 L 92 Laboratory Results 10/06/20 10/06/20 10/05/20 Range/Units 07:18 07:01 20:15 Sodium 141 (136-145) mmol/L Potassium 3.8 (3.5-5.1) mmol/L Chloride 108 H (98-107) mmol/L Carbon Dioxide 28 (21-32) mmol/L Anion Gap 6.0 (3-11) BUN 25 H (7-18) mg/dl Creatinine 0.84 (0.6-1.4) mg/dl Est Cr Clr Drug Dosing 87.5 ml/min Est GFR ( Amer) 99.3 Est GFR (Non-Af Amer) 85.7 BUN/Creatinine Ratio 29.3 H (10-20) Glucose 132 H (70-99) mg/dl POC Glucose 158 H 150 H (70-99) mg/dl Calcium 8.5 (8.5-10.1) mg/dl Total Bilirubin 0.4 (0.2-1) mg/dl AST 20 (15-37) U/L ALT 20 (12-78) U/L Alkaline Phosphatase 58 (45-117) U/L Troponin I (0-0.045) ng/ml Total Protein 6.2 L (6.4-8.2) gm/dl Albumin 2.8 L (3.4-5.0) gm/dl Globulin 3.4 (2.5-4.0) gm/dl Albumin/Globulin Ratio 0.8 L (0.9-2) 10/05/20 10/05/20 10/05/20 Range/Units 16:43 11:31 05:52 Sodium (136-145) mmol/L Potassium (3.5-5.1) mmol/L Chloride (98-107) mmol/L Carbon Dioxide (21-32) mmol/L Anion Gap (3-11) BUN (7-18) mg/dl Creatinine (0.6-1.4) mg/dl Est Cr Clr Drug Dosing ml/min Est GFR ( Amer) Est GFR (Non-Af Amer) BUN/Creatinine Ratio (10-20) Glucose (70-99) mg/dl POC Glucose 168 H 146 H (70-99) mg/dl Calcium (8.5-10.1) mg/dl Total Bilirubin (0.2-1) mg/dl AST (15-37) U/L ALT (12-78) U/L Alkaline Phosphatase (45-117) U/L Troponin I 0.067 H* (0-0.045) ng/ml Total Protein (6.4-8.2) gm/dl Albumin (3.4-5.0) gm/dl Globulin (2.5-4.0) gm/dl Albumin/Globulin Ratio (0.9-2) Medications Administered Current Inpatient Medications Acetaminophen (Acetaminophen 325 Mg Tab) 650 mg PO Q4H PRN PRN Reason: Pain Stop: 11/04/20 16:16 Last Admin: 10/05/20 16:28 Dose: 650 mg Documented by: Albuterol (Albuterol Hfa 8 Gm Inhaler) 2 puffs INH Q4H PRN PRN Reason: Shortness Of Breath Or Wheezing Stop: 11/03/20 23:16 Aspirin (Aspirin 81 Mg Ectab) 81 mg PO DAILY [facility] Stop: 11/04/20 08:59 Last Admin: 10/06/20 08:33 Dose: 81 mg Documented by: Atorvastatin Calcium (Atorvastatin 40 Mg Tab) 80 mg PO DAILY [facility] Stop: 11/04/20 08:59 Last Admin: 10/06/20 08:33 Dose: 80 mg Documented by: Clopidogrel Bisulfate (Clopidogrel Bisulfate 75 Mg Tab) 75 mg PO DAILY [facility] Stop: 11/04/20 08:59 Last Admin: 10/06/20 08:33 Dose: 75 mg Documented by: Dextrose (Dextrose 50% 50 Ml Syringe) 25 - 50 ml IV UD PRN; Protocol PRN Reason: Hypoglycemia Protocol Stop: 11/03/20 23:16 Enoxaparin Sodium (Enoxaparin Inj 40 Mg/0.4 Ml Syr) 40 mg SQ Q12H [facility] Stop: 11/04/20 08:59 Last Admin: 10/06/20 08:42 Dose: Not Given Documented by: Escitalopram Oxalate (Escitalopram Oxalate 20 Mg Tab) 20 mg PO DAILY [facility] Stop: 11/04/20 08:59 Last Admin: 10/06/20 08:32 Dose: 20 mg Documented by: Fenofibrate (Fenofibrate Nanocrystallized 145 Mg Tablet) 145 mg PO DAILY [facility] Stop: 11/04/20 10:59 Last Admin: 10/06/20 08:33 Dose: 145 mg Documented by: Fluticasone/Vilanterol (Fluticasone/Vilanterol 100/25mcg 14 Puffs/Inhaler) 1 puffs INH DAILY [facility] Stop: 11/04/20 08:59 Last Admin: 10/06/20 08:32 Dose: Not Given Documented by: Glucagon (Glucagon For Inj 1 Mg Vial) 1 mg SQ UD PRN; Protocol PRN Reason: Hypoglycemia Protocol Stop: 11/03/20 23:16 Glucose (Glucose 10 Tabs/Tube) 4 - 8 tabs PO UD PRN; Protocol PRN Reason: Hypoglycemia Protocol Stop: 11/03/20 23:16 Glucose (Glucose 40% Gel 15 Gm Tube) 15 - 30 gm PO UD PRN; Protocol PRN Reason: Hypoglycemia Protocol Stop: 11/03/20 23:16 Insulin Aspart (Insulin Aspart 100 Units/Ml 3 Ml Pen) 0 units SC ACHS [facility] Stop: 11/04/20 07:29 Last Admin: 10/06/20 08:39 Dose: 4 units Documented by: Insulin Glargine (Insulin Glargine Solostar 100 Units/Ml 3 Ml Pen) 30 units SQ QAM [facility] Stop: 11/04/20 08:59 Last Admin: 10/06/20 08:39 Dose: 30 units Documented by: Insulin Glargine (Insulin Glargine Solostar 100 Units/Ml 3 Ml Pen) 25 units SQ HS [facility] Stop: 11/04/20 20:59 Last Admin: 10/05/20 20:35 Dose: 25 units Documented by: Isosorbide Dinitrate (Isosorbide Dinitrate 10 Mg Tab) 10 mg PO BID@0900,1400 [facility] Stop: 11/03/20 23:16 Last Admin: 10/06/20 08:33 Dose: 10 mg Documented by: Metoprolol Succinate (Metoprolol Succ 25mg Ext Rel Tab) 25 mg PO DAILY [facility] Stop: 11/04/20 08:59 Last Admin: 10/06/20 08:32 Dose: 25 mg Documented by: Miscellaneous (Dovonex~Order Awaiting Action) 1 ea N/A QS [facility] Stop: 11/04/20 07:59 Last Admin: 10/06/20 08:32 Dose: Not Given Documented by: Miscellaneous (Carbohydrates For Hypoglycemia ) 15 - 30 gm PO UD PRN PRN Reason: Hypoglycemia Protocol Stop: 11/03/20 23:16 Miscellaneous (Remove Nicoderm Patch) 1 ea N/A DAILY@0859 [facility] Stop: 11/06/20 08:58 Nicotine (Nicotine 14 Mg/24 Hr Patch) 14 mg TD QAM [facility] Stop: 11/05/20 08:59 Nicotine Polacrilex (Nicotine Polacrilex 2 Mg Gum) 1 piece MT Q4H PRN PRN Reason: Anxiety/Agitation Stop: 11/03/20 23:51 Sacubitril/Valsartan (Sacubitril-Valsartan 24-26 Mg Tab) 1 tab PO BID [facility] Stop: 11/03/20 23:16 Last Admin: 10/06/20 08:32 Dose: 1 tab Documented by: Torsemide (Torsemide 10 Mg Tab) 10 mg PO DAILY [facility] Stop: 11/04/20 08:59 Last Admin: 10/06/20 08:32 Dose: 10 mg Documented by: Trazodone HCl (Trazodone Hcl 50 Mg Tab) 50 mg PO HS [facility] Stop: 11/04/20 20:59 Last Admin: 10/05/20 20:34 Dose: 50 mg Documented by: (1) CAD (coronary artery disease), [place] coronary artery Associated angina: angina presence unspecified [place] vs. transplanted heart: [place] heart Qualified Code(s): I25.10 - Atherosclerotic heart disease of [place] coronary artery without angina pectoris (2) Hypertension Hypertension type: essential hypertension Qualified Code(s): I10 - Essential (primary) hypertension
[2020-10-06] MEDS: NICOTINE 14 MG/24 HR PATCH TD SCH (09:20)
[2020-10-06] MEDS ORDERED: oxyCODONE HCL IR 5 MG TAB (IMMEDIATE RELEASE) PO PRN (13:17)
--- NOTE | 2020-10-06 15:03 | Cardiology Progress Note ---
Date of Service October 06, 2020 Assessment & Plan (1) Fall: (2) Abrasion of arm, left: (3) Left bundle branch block: Patient's mild troponin elevation is consistent with his chronic ischemic cardiomyopathy. Cardiogram was performed this morning. The study was technically limited due to poor acoustic windows, but I believe ongoing moderate left ventricular systolic function is likely present with ejection fraction estimated to be 35 to 40%. Patient is felt to be compensated from a volume status standpoint on his current medications. For the physical therapy consultation, patient would likely benefit from inpatient rehabilitation to get his strength back, with his subjective complaint of having had "8 recent fall events at home ". Patient however reportedly declines inpatient rehab, alternatives being explored, my conversation with Dr. Rolon, she plans to discuss this with the patient's daughter. Continue current cardiac medications including aspirin, clopidogrel, isosorbide dinitrate, metoprolol, Entresto, torsemide and fenofibrate. For DVT prophylaxis. Disposition: Pending plan with regards to rehab. Admission and Anticipated Discharge Date Admission Date: October 06, 2020 Subjective Patient seen in follow-up of his chief complaint of having fallen, with noted findings of mild elevation in troponin I telemetry reveals stable findings of sinus rhythm with ventricular pacing. Device interrogation revealed appropriate function as reviewed in my note yesterday. Patient denies any cardiac complaints at present. Review of Systems Review of Systems: All systems reviewed & are unremarkable except as noted in HPI & below Physical Exam Physical Exam: Temp Pulse Resp BP Pulse Ox 36.3 C L 62 18 126/73 94 10/06/20 11:35 10/06/20 11:35 10/06/20 11:35 10/06/20 11:35 10/06/20 11:35 Constitutional: WD/WN, vitals as above Respiratory: normal respiratory effort, lungs clear to auscultation Cardiovascular: RRR, no murmur, no edema Gastrointestinal (Abdomen): normal bowel sounds, soft, nontender, no hepatosplenomegaly Skin: Noted trauma knees, "[place] "from his recent fall Neurologic: PERRL, EOMI, accommodation nl, no face palsy, no dysarthria Results & Data ([facility]) Vital Signs (Past 12 Hours) Vital Signs Temp Pulse Resp BP Pulse Ox 10/06/20 11:35 36.3 C L 62 18 126/73 94 01/26/21 07:26 36.9 C 63 18 117/54 L 90 10/06/20 04:09 36.7 C 58 L 18 113/60 96 Laboratory Results Cardiac Enzymes 10/06/20 Range/Units 07:01 AST 20 (15-37) U/L Comprehensive Metabolic Panel 10/06/20 Range/Units 07:01 Sodium 141 (136-145) mmol/L Potassium 3.8 (3.5-5.1) mmol/L Chloride 108 H (98-107) mmol/L Carbon Dioxide 28 (21-32) mmol/L BUN 25 H (7-18) mg/dl Creatinine 0.84 (0.6-1.4) mg/dl Glucose 132 H (70-99) mg/dl Calcium 8.5 (8.5-10.1) mg/dl AST 20 (15-37) U/L ALT 20 (12-78) U/L Alkaline Phosphatase 58 (45-117) U/L Total Protein 6.2 L (6.4-8.2) gm/dl Albumin 2.8 L (3.4-5.0) gm/dl Intake and Output 10/06/20 10/06/20 10/06/20 06:59 14:59 22:59 Intake Total 50 / 450 505 / 505 Output Total 250 / 302 250 / 250 Balance -200 / 148 255 / 255 Intake: Oral 50 / 450 505 / 505 Output: Urine 250 / 300 250 / 250 Other: Weight 104.5 kg Weight Measurement Method Standing Scale (1) Abrasion of arm, left Encounter type: initial encounter Qualified Code(s): S40.812A - Abrasion of left upper arm, initial encounter
--- NOTE | 2020-10-06 15:34 | XRay Report ---
RIGHT FEMUR 3 VIEWS CLINICAL HISTORY: Right leg pain. Recent fall. FINDINGS: AP, frog-leg, and crosstable lateral views of the right femur are obtained. No prior studie s are available for comparison at the time of dictation. The skeletal structures are osteopenic. Ther e is no radiographic evidence of right femoral fracture. The visualized right hemipelvis appears inta ct. Moderate degenerative joint space narrowing seen in the right hip. The overlying soft tissues are normal as imaged. There is atherosclerotic calcification of the right femoral artery. IMPRESSION: There is no radiographic evidence of right femoral fracture. Electronically signed by: Jakob Martinez M.D. 10/06/2020 3:33 PM
[2020-10-06] MEDS: traZODone HCL 50 MG TAB PO SCH (20:43)
[2020-10-07] MEDS: oxyCODONE HCL IR 5 MG TAB (IMMEDIATE RELEASE) PO PRN ×4 (00:18→16:34)
[2020-10-07 07:21] LABS: Hematocrit (blood only) 41.6 % (42-52); Hemoglobin 13.9 g/dL (14.0-18.0); Mean Corpuscular Hemoglobin 31.5 pg (25-34); Mean Corpuscular Hgb Conc 33.4 g/dL (32-36); Mean Corpuscular Volume 94.3 fL (80-100); Mean Platelet Volume 10.1 fL (7.4-10.4); Platelet Count 368 K/uL (130-400); RDW Coefficient of Variation 13.4 % (11.5-14.5); RDW Standard Deviation 46.5 fL (36.4-46.3); Red Blood Count 4.41 M/uL (4.7-6.1); White Blood Count 11.49 K/uL (4.8-10.8)
[2020-10-07 07:59] LABS: BUN Creatinine Ratio 29.9 (10-20); Calcium 7.9 mg/dl (8.5-10.1); Est GFR (African American) 96.5; Est GFR (Non-African American) 83.3; Potassium 3.9 mmol/L (3.5-5.1)
[2020-10-07] MEDS: ESCITALOPRAM OXALATE 20 MG TAB PO SCH (08:39)
[2020-10-07] MEDS: TORSEMIDE 10 MG TAB PO SCH (08:40)
[2020-10-07] MEDS: CLOPIDOGREL BISULFATE 75 MG TAB PO SCH (08:41)
[2020-10-07] MEDS: FENOFIBRATE NANOCRYSTALLIZED 145 MG TABLET PO SCH (08:41)
[2020-10-07] MEDS: METOPROLOL SUCC 25MG EXT REL TAB PO SCH (08:42)
[2020-10-07] MEDS: ASPIRIN 81 MG ECTAB PO SCH (08:42)
[2020-10-07] MEDS: SACUBITRIL-VALSARTAN 24-26 MG TAB PO SCH (08:42)
[2020-10-07] MEDS: ATORVASTATIN 40 MG TAB PO SCH (08:42)
[2020-10-07] MEDS: ISOSORBIDE DINITRATE 10 MG TAB PO SCH ×2 (08:44→14:18)
[2020-10-07] MEDS: FLUTICASONE/VILANTEROL 100/25MCG 14 PUFFS/INHALER INH SCH (08:46)
[2020-10-07] MEDS: NICOTINE 14 MG/24 HR PATCH TD SCH (08:48)
[2020-10-07] MEDS: INSULIN ASPART 100 UNITS/ML 3 ML PEN SC SCH ×2 (08:51→12:09)
[2020-10-07] MEDS: ENOXAPARIN INJ 40 MG/0.4 ML SYR SQ SCH (08:53)
[2020-10-07] MEDS: INSULIN GLARGINE SOLOSTAR 100 UNITS/ML 3 ML PEN SQ SCH (09:10)
--- NOTE | 2020-10-07 14:54 | Hospitalist Progress Note ---
Date of Service October 07, 2020 Assessment & Plan (1) Weakness: (2) Elevated troponin I level: (3) Ischemic cardiomyopathy: (4) CAD (coronary artery disease), [place] coronary artery: (5) Diabetes mellitus, type 2: (6) Hypertension: (7) Status post coronary artery bypass grafting: (8) Tobacco use: (9) Fall: (10) Anxiety: Generalized weakness Fall at home Elevated troponin According to patient, weakness has been progressive CT head was unremarkable for acute abnormality Fall precautions PT/OT evaluation Got IV fluids in ER. We will not continue IV fluids at this time. Follow-up CPK Trend troponins EKG showed atrial sensed ventricular paced rhythm. Telemetry monitoring Cardiology consulted, device check ok Echo obtained - ongoing moderate left ventricular systolic function is likely present with ejection fraction estimated to be 35 to 40%. Hypomagnesemia. Mag is 1.7 on admission. Replete and monitor CAD status post CABG Ischemic cardiomyopathy with EF of 35 to 40% Continue home medication including aspirin, atorvastatin Continue Entresto and isosorbide dinitrate Continue metoprolol XL Resume Lasix RLE pain - R thigh pain - pt complains of increased pain, reports that he feels he pulled a muscle when he was trying to get up at home - tylenol and oxycodone ordered - will obtain XR of R LE (femur) Diabetes mellitus type 2 Continue home insulin regimen Insulin sliding scale Carbohydrate controlled diet Monitor blood glucose Anxiety Continue home citalopram Tobacco use Counseled patient extensively on need for smoking cessation Nicotine patch DVT prophylaxis Lovenox subcu Disposition: PT recommends inpt rehab, pt prefers to go home w/ HH. Daughter comes to visit over the weekend but otherwise pt is alone. Will discuss further w/ pt's daughter. CM aware. Admission and Anticipated Discharge Date Admission Date: October 06, 2020 Subjective Doing okay this morning. Resting comfortably. Reports right lower extremity pain is well controlled. Denies any chest pain, shortness of breath or any cough. Currently he is awake, alert and oriented x3. Denies any abdominal pain or diarrhea. Rest of the review of systems negative. Results & Data Results & Data ([facility]) Vital Signs (Past 12 Hours) Vital Signs Temp Pulse Pulse Resp BP Pulse Ox 10/07/20 14:16 65 117/64 10/07/20 11:40 36.5 C 65 18 114/56 L 95 10/07/20 08:00 64 10/07/20 07:25 36.6 C 62 18 114/67 94 10/07/20 03:02 36.6 C 64 20 98/58 L 91 (1) CAD (coronary artery disease), [place] coronary artery [place] vs. transplanted heart: [place] heart Associated angina: angina presence unspecified Qualified Code(s): I25.10 - Atherosclerotic heart disease of [place] coronary artery without angina pectoris (2) Hypertension Hypertension type: essential hypertension Qualified Code(s): I10 - Essential (primary) hypertension
--- NOTE | 2020-10-07 15:47 | Discharge Summary ---
Date of Service October 07, 2020 Admission HPI Per Admitting Provider 75-year-old male with past medical history of type 2 diabetes, microalbuminuria diabetic nephropathy,hyperlipidemia, COPD, allergic rhinitis, paroxysmal atrial fibrillation, unstable angina, hypertension, left bundle branch block, left main coronary artery disease, CKD stage I, chronic diastolic CHF, obesity, tubular adenoma of colon, glaucoma, major depression, tobacco disorder, CAD, status post CABG who presents to the ER for weakness and fall. Patient reports that over the past couple of months he has been progressively getting weaker especially in his legs. He states that he usually have to sit up and wait for few minutes before getting up from the bed. He reported that today, he felt some shaking in his legs. He cannot say if he had numbness or not. Then he felt like he needed to urinate. He got up from the bed and on standing up, his legs gave out and he fell on the floor. He denied any dizziness, palpitations, chest pain or shortness of breath prior to falling. He stated that his legs were quite weak that he tried multiple times to get up by holding onto the arms of the chair which was nearby. Each time he is able to get up slightly he falls back again because of weakness in his legs. He said that he did this multiple times that he started sweating and he started feeling sore where the chair was pressing against his chest. He had to call the daughter who came and he was brought today to the ER. Patient denied any loss of consciousness Denied hitting the head when he fell. He fell on his left arm which he had a bruise with some bleeding which is stopped He denied any nausea, vomiting. He denied any diarrhea. He stated that the last time he had diarrhea was last year when he was on Metformin. He denies any fevers, chills Denies any cough, shortness of breath at rest. Reports chronic shortness of breath with some exertion which is unchanged Denies any dizziness Denies any abdominal pain Denies any dysuria, frequency, urgency, hematuria Reports that he had stopped smoking but resumed again within the pandemic. As he lives alone since he lost his and one of his daughters. Currently smokes 1 pack/day. Denied illicit drug use or alcohol use. On coming to the ER was noted to have WBC of 13, Magnesium of 1.7, troponin of 0.078, CPK of 689. He got 1 L IV fluid bolus X-rays and scans did not show any acute abnormality Admission Exam Per Admitting Provider Constitutional: + well hydrated; no acute distress Eyes: PERRL, conjunctivae normal, anicteric sclerae ENMT: external ear and nose normal, oropharynx normal Respiratory: normal respiratory effort, lungs clear to auscultation Cardiovascular: Rate/Rhythm: regular rate and regular rhythm S1-S2 Chest (Breasts): Additional Comments: No chest wall tenderness Gastrointestinal (Abdomen): normal bowel sounds, soft, nontender, no hepatosplenomegaly Musculoskeletal: [place] mildly reduced in lower extremity compared to upper extremity Trace pedal edema Neurologic: PERRL, EOMI, accommodation nl, no face palsy, no dysarthria Psychiatric: A+Ox3, euthymic affect Genitourinary: no CVA tenderness Principal Diagnosis (1) Weakness: (2) Elevated troponin I level: (3) Ischemic cardiomyopathy: (4) CAD (coronary artery disease), [place] coronary artery: (5) Diabetes mellitus, type 2: (6) Hypertension: (7) Status post coronary artery bypass grafting: (8) Tobacco use: (9) Fall: (10) Anxiety: Discharge Exam General: A&Ox3 HENT: NCAT, MMM, EOMI Eyes: PERRLA Neck: Supple, normal range of motion CVS: normal rate and rhythm Resp: b/l good breath sounds Abdomen: Soft, ND/NT, +BS Extremities: No c/c/e Neuro: face symmetric, strength grossly equal, no focal deficit Skin: warm and dry, no rashes/lesions/errythema MSK: normal ROM, no joint swelling/erythema Discharge Data Allergies Allergy/AdvReac Type Severity Reaction Status Date / Time VELMA Inhibitors Allergy Unknown unknown Verified 03/19/20 20:00 Consultations 10/04/20 20:51 ED Decision to Admit Stat 10/04/20 23:17 Consult Case Management - Discharge Planning Stat 10/05/20 07:57 Consult Cardiology Routine Ordered Studies 10/04/20 17:51 CT head/brain wo con Stat Hospital Course (1) Weakness: (2) Elevated troponin I level: (3) Ischemic cardiomyopathy: (4) CAD (coronary artery disease), [place] coronary artery: (5) Diabetes mellitus, type 2: (6) Hypertension: (7) Status post coronary artery bypass grafting: (8) Tobacco use: (9) Fall: (10) Anxiety: Generalized weakness Fall at home Elevated troponin Patient is 75-year-old male who was admitted generalized weakness and fall at home. CT head was negative on admission. Cardiology was consulted on admission for pacemaker interrogation and did not find any concerning findings. Echo was obtained which revealed EF of 35 to 40%. On the day of discharge patient was doing okay. Hemodynamically he was stable. Patient was on room air. Patient worked with PT/OT who recommended rehab. Patient agreed to it and was discharged to rehab. CAD status post CABG Ischemic cardiomyopathy with EF of 35 to 40% Continue home medication including aspirin, atorvastatin Continue Entresto and isosorbide dinitrate Continue metoprolol XL Continue MANAGER CREDIT RISK Lasix RLE pain Patient did complain of increasing pain. X-rays of the pelvis and the femur were obtained which were negative for any acute findings. If pain continues to be an issue would recommend CT of the pelvis. Diabetes mellitus type 2 Continue MANAGER CREDIT RISK regimen at discharge. Total Time Total Time Spent Total Time Spent (In Minutes): 35 Discharge Plan Discharge Items Patient Disposition: Transfer Inpatient Rehab Fac Reason For Visit: FALL AND WEAKNESS Discharge Diagnosis: (1) Weakness: (2) Elevated troponin I level: (3) Ischemic cardiomyopathy: (4) CAD (coronary artery disease), [place] coronary artery: (5) Diabetes mellitus, type 2: (6) Hypertension: (7) Status post coronary artery bypass grafting: (8) Tobacco use: (9) Fall: (10) Anxiety: Condition on Discharge: Good Activity: Resume your previous activity Non-emergency contact: Primary Care Provider Call non-emergency contact if: your symptoms worsen Follow-up/Referrals: Viet Holly DO [Primary Care Provider] - Diet: Heart Healthy Addtl Attending Provider Instructions: Continue with supportive management for your right leg pain. Pending Studies at Discharge: No Stand-Alone Forms: [facility] Skilled Items Patient informed of condition?: Yes DNR: No Discharge Level of Care: Acute rehab Discharge Prognosis: Stable Urinary Catheter: No Medications and DC Order Prescriptions: Continued escitalopram oxalate 20 mg tablet 20 mg PO DAILY RF: 0 aspirin 81 mg Tablet,Delayed Release (Dr/Ec) 81 mg PO DAILY RF: 0 calcipotriene [Dovonex] 0.005 % Cream 1 applic TOPICAL BID RF: 0 nitroglycerin 400 mcg/spray [place],Non-Aerosol 1 spry Sublingual UD PRN (Reason: Chest Pain) RF: 0 loratadine [Claritin] 10 mg Tablet 10 mg PO DAILY PRN (Reason: Allergy Symptoms) RF: 0 albuterol sulfate [Ventolin HFA] 90 mcg/actuation HFA aerosol inhaler 2 puff inhalation Q4H PRN (Reason: Shortness Of Breath Or Wheezing) RF: 0 trazodone 50 mg tablet 50 mg PO HS RF: 0 Dulera 100-5 mcg/actuation HFA aerosol inhaler 2 puff inhalation BID RF: 0 (DME) insulin admin supplies insulin pen See Dose Instructions .ROUTE .MEDSUPPLY Qty: 1 RF: 0 isosorbide dinitrate 10 mg tablet 10 mg PO BID RF: 0 atorvastatin 80 mg Tablet 80 mg PO DAILY RF: 0 clopidogrel [Plavix] 75 mg tablet 75 mg PO DAILY RF: 0 fenofibrate micronized 134 mg capsule 134 mg PO DAILY RF: 0 metoprolol succinate [Toprol XL] 25 mg tablet extended release 24 hr 25 mg PO DAILY RF: 0 fluticasone propionate [Flonase Allergy Relief] 50 mcg/actuation [place],Suspension 2 spray INTRANASAL DAILY RF: 0 Entresto 24-26 mg tablet 1 tab PO BID RF: 0 torsemide 10 mg tablet 10 mg PO DAILY RF: 0 Basaglar KwikPen U-100 Insulin 100 unit/mL (3 mL) insulin pen 30 unit SUBCUT QAM RF: 0 Basaglar KwikPen U-100 Insulin 100 unit/mL (3 mL) insulin pen 25 unit SUBCUT HS RF: 0 Discontinued prednisone 20 mg Tablet 20 mg PO UD PRN (Reason: Shortness Of Breath & Wheezing) RF: 0 Discharge Orders: Discharge Order (Routine); Ordered 10/07/20 Ordered By: Galdino Lovelace Admission Data Admit Date/Time: 10/06/20 08:16 Attending Provider: Galdino Lovelace Admit Provider: Ligia Lizarraga I. Primary Care Provider: Viet Holly Other Providers: Romeo Rolon ; Abilio Arteaga
[2020-10-07 16:28] VITALS: TEMP 98.2; O2SAT 94
[2020-10-07 16:31] VITALS: BP 142/64; PULSE 64
--- NOTE | 2020-10-07 16:43 | Cardiology Progress Note ---
Date of Service October 07, 2020 Assessment & Plan (1) Fall: Patient now agreeable to physical therapy. (2) Ischemic cardiomyopathy: (3) Left bundle branch block: Well compensated, continue current medications. Admission and Anticipated Discharge Date Admission Date: October 06, 2020 Subjective Patient seen in follow-up of history of fall, chronic coronary heart disease, ischemic cardiomyopathy. The patient is in good spirits, he denies any aches and pains today. And states his respiratory status and edema are doing well, edema is absent. Physical Exam Physical Exam: Temp Pulse Resp BP Pulse Ox 36.8 C 64 20 142/64 H 94 10/07/20 16:29 10/07/20 16:29 10/07/20 16:29 10/07/20 16:29 10/07/20 16:29 Constitutional: WD/WN, vitals as above Respiratory: normal respiratory effort, lungs clear to auscultation Cardiovascular: RRR, no murmur, no edema Vessels: no JVD Extremities: no edema Neurologic: PERRL, EOMI, accommodation nl, no face palsy, no dysarthria Results & Data ([facility]) Vital Signs (Past 12 Hours) Vital Signs Temp Pulse Pulse Pulse Resp BP BP 10/07/20 16:29 36.8 C 64 63 20 147/67 H 142/64 H 10/07/20 16:27 36.8 C 63 20 147/67 H 10/07/20 14:16 65 117/64 10/07/20 11:40 36.5 C 65 18 114/56 L 10/07/20 08:00 64 10/07/20 07:25 36.6 C 62 18 114/67 Pulse Ox 10/07/20 16:29 94 10/07/20 16:27 94 10/07/20 14:16 10/07/20 11:40 95 10/07/20 08:00 10/07/20 07:25 94 Laboratory Results CBC 10/07/20 Range/Units 06:42 WBC 11.49 H (4.8-10.8) K/uL RBC 4.41 L (4.7-6.1) M/uL Hgb 13.9 L (14.0-18.0) g/dL Hct 41.6 L (42-52) % Plt Count 368 (130-400) K/uL Comprehensive Metabolic Panel 10/07/20 Range/Units 06:42 Sodium 142 (136-145) mmol/L Potassium 3.9 (3.5-5.1) mmol/L Chloride 107 (98-107) mmol/L Carbon Dioxide 29 (21-32) mmol/L BUN 27 H (7-18) mg/dl Creatinine 0.90 (0.6-1.4) mg/dl Glucose 75 (70-99) mg/dl Calcium 7.9 L (8.5-10.1) mg/dl Intake and Output 10/07/20 10/07/20 10/07/20 06:59 14:59 22:59 Intake Total 280 / 280 Output Total 250 / 800 Balance -250 / -55 280 / 280 Intake: Oral 280 / 280 Output: Urine 250 / 800 Other: Other Intake Source sips # Unmeasured Voids 2 Weight 107.8 kg 107.8 kg Weight Measurement Method Standing Scale Patient Weight 10/08/20 06:59 Weight 107.8 kg
== END 2020-10-07 17:01 | DRG 92 ==
LOC: 2W 16:59 → ED 16:59 → 2W 22:36 → SUATTDRO 10-06 08:16

== ENCOUNTER 2022-12-19 18:19 | Inpatient (IN) ==
[2022-12-19 19:01] LABS: Basophils # (auto) 0.11 K/uL (0-0.2); Basophils % (auto) 0.5 %; Eosinophils # (auto) 0.04 K/uL (0-0.50); Eosinophils % (auto) 0.2 %; Hematocrit (blood only) 53.6 % (42.0-52.0); Hemoglobin 19.6 g/dl (14.0-18.0); Immature Granulocytes # (auto) 0.19 K/uL (0.01-0.20); Immature Granulocytes % (auto) 0.8 %; Lymphocytes # (auto) 1.79 K/uL (1.2-3.4); Lymphocytes % (auto) 7.8 %; Mean Corpuscular Hemoglobin 31.1 pg (25.0-34.0); Mean Corpuscular Hgb Conc 36.6 g/dL (32.0-36.0); Mean Corpuscular Volume 85.1 fL (80.0-100.0); Mean Platelet Volume 9.9 fL (9.4-12.4); Monocytes # (auto) 1.41 K/uL (0.11-0.59); Monocytes % (auto) 6.1 %; Neutrophils # (auto) 19.53 K/uL (1.40-6.50); Neutrophils % (auto) 84.6 %; Platelet Count 527 K/uL (130-400); RDW Coefficient of Variation 13.4 % (11.5-14.5); RDW Standard Deviation 40.9 fL (36.4-46.3); White Blood Count 23.07 K/ul (4.8-10.8)
[2022-12-19 19:26] LABS: Influenza A virus by PCR Negative (Neg); Influenza B virus by PCR Negative (Neg); RSV by PCR Negative (Neg); SARS CoV2 RNA(COVID-19) Ceph NEGATIVE (Negative)
[2022-12-19 19:30] LABS: Alanine Aminotransferase 22 U/L (7-52); Albumin Globulin Ratio 1.2 (0.9-2); Albumin Level 4.2 gm/dl (3.4-5.0); Alkaline Phosphatase 106 U/L (34-104); Anion Gap 15 (3-11); Aspartate Aminotransferase 19 U/L (13-39); BUN Creatinine Ratio 48.7 (10-20); Bilirubin,Total 0.9 mg/dl (0.2-1.0); Blood Urea Nitrogen 95 mg/dl (6-23); Calcium 8.6 mg/dl (8.6-10.3); Carbon Dioxide 18 mmol/L (21-32); Chloride 103 mmol/L (98-107); Est GFR (African American) 37.4 ml/min; Est GFR (Non-African American) 32.2 ml/min; Globulin 3.5 gm/dl (2.5-4.0); Glucose 202 mg/dl (70-99(Fasting)); Lipase 22 U/L (11-82); Magnesium 1.7 mg/dl (1.7-2.4); Potassium 2.3 mmol/L (3.5-5.1); Sodium 136 mmol/L (136-145); Total Protein 7.7 gm/dl (6.0-8.3); Troponin I High Sensitivity 101.3 pg/ml (0-20)
[2022-12-19] MEDS ORDERED: NSS + 20MEQ KCL 20 MEQ/1,000 ML BAG IV SCH (19:45)
[2022-12-19] MEDS: POTASSIUM CHLORIDE / WTR 10 MEQ/100 ML PLCT IV SCH ×2 (19:56→21:37)
--- NOTE | 2022-12-19 20:15 | CT Scan Report ---
CT abd pelvis wo con CLINICAL HISTORY: abd pain TECHNIQUE: Helical axial images of the abdomen and pelvis were obtained. Automated dose lowering tech niques and/or adjustment according to patient size were utilized for this exam. This exam was perfor med without intravenous contrast. CT DOSE: 702.91 mGy.cm COMPARISON: None available at the time of this dictation. FINDINGS: Lower chest: Atelectasis is noted in the right lower lung. Liver: Unremarkable. No focal lesions are seen. Gallbladder and biliary tree: Patient is status post cholecystectomy. No intra- or extrahepatic bilia ry ductal dilation. Pancreas: Unremarkable, no focal lesions. Spleen: Unremarkable. Adrenals: Unremarkable. Kidneys and ureters: Unremarkable. Bladder: Unremarkable. Reproductive organs: Unremarkable. Bowel: The appendix is normal. Lymph nodes Retroperitoneal: Unremarkable. Pelvic: Unremarkable. Mesenteric: Unremarkable. Peritoneum: Normal. Vessels: Atherosclerotic calcifications are seen. Abdominal wall: Unremarkable. Bones: Degenerative changes in the visualized spine. Extensive sclerotic endplate disease is noted in the lumbar spine. IMPRESSION: 1. No acute intra-abdominal abnormalities to explain abdominal pain. 2. Rounded atelectasis in the left lower lobe. ACT 112: Negative or not required by law. Electronically signed by: Syd Rust M.D. 12/19/2022 8:13 PM
[2022-12-19] MEDS ORDERED: POTASSIUM CHLORIDE 10 MEQ TABCR PO STA (20:31)
[2022-12-19] MEDS ORDERED: MAGNESIUM SULFATE / D5W 1 GM/100 ML BAG IV ONE (20:37)
[2022-12-19] MEDS ORDERED: ALBUMIN 25% 100 mL 25 GM/100 ML VIAL IV ONE (20:47)
--- NOTE | 2022-12-19 20:51 | XRay Report ---
XR chest 1V portable CLINICAL HISTORY: weakness TECHNIQUE: Single frontal radiograph of the chest was obtained. Comparison: Comparison is made to chest radiograph 10/04/2020 FINDINGS: Dual lead pacemaker is seen. Cardiomegaly is noted. Minimal left lower lung airspace opacity is seen. No evidence of pleural effusion or pneumothorax. IMPRESSION: Stable cardiomegaly is seen. Minimal left lower lung airspace opacity likely represents atelectasis w ith or without superimposed aspiration/pneumonia. ACT 112: Negative or not required by law. Electronically signed by: Syd Rust M.D. 12/19/2022 8:49 PM
--- NOTE | 2022-12-19 21:17 | Emergency Department Note ---
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 Time Seen by Provider: 12/19/22 19:04 History of Present Illness Provider Complaint: abdominal pain Onset (ago): 10 day(s) Pain Consistency: intermittent Location: diffuse Severity: moderate Maximum Pain Intensity: 5 Current Pain Intensity: 5 Quality: + cramping, + stabbing, + aching, + fullness and + sharp Relieved By: + nothing Exacerbated By: + nothing Context: no foreign travel, no possible food poisoning, no sick contacts, no recent antibiotic use, no recent surgery/procedure or no recent injury Associated Symptoms: + diarrhea; no nausea, no vomiting, no fever, no chills, no constipation, no dysuria, no hematemesis, no hematochezia, no melena, no hematuria, no syncope and no back pain Home Medications Medication Instructions Recorded Confirmed Type nitroglycerin 400 mcg/spray 1 spry sublingual UD PRN Chest Pain 09/05/18 12/19/22 History translingual insulin admin supplies #1 ea 07/12/19 03/19/20 Rx atorvastatin 80 mg tablet 80 mg PO [facility] 03/19/20 12/19/22 History fenofibrate micronized 134 mg 134 mg PO DAILY 03/19/20 12/19/22 History capsule fluticasone propionate 50 2 spray intranasal DAILY 03/19/20 12/19/22 History mcg/actuation nasal spray,suspension (Flonase Allergy Relief) isosorbide dinitrate 10 mg tablet 10 mg PO DAILY 03/19/20 12/19/22 History metoprolol succinate 25 mg 25 mg PO [facility] 03/19/20 12/19/22 History tablet,extended release 24 hr (Toprol XL) sacubitril 24 mg-valsartan 26 mg 1 tab PO BID 03/19/20 12/19/22 History tablet (Entresto) torsemide 10 mg tablet 10 mg PO DAILY 03/19/20 12/19/22 History insulin glargine 100 unit/mL (3 30 unit subcut [facility] 10/04/20 12/19/22 History mL) subcutaneous pen (Basaglar KwikPen U-100 Insulin) apixaban 5 mg tablet (Eliquis) 5 mg PO [facility] 04/10/23 04/10/23 History bupropion HCl 150 mg tablet,12 hr 150 mg PO [facility] 12/19/22 12/19/22 History sustained-release potassium chloride 10 mEq 10 meq PO [facility] 12/19/22 12/19/22 History tablet,extended release Allergies Allergy/AdvReac Type Severity Reaction Status Date / Time VELMA Inhibitors Allergy Unknown unknown Verified 03/19/20 20:00 Past Med/Surg History Medical History (Updated 12/19/22 @ 21:18 by Robinson Herrera) Anxiety CAD (coronary artery disease), tolowa dee-ni' coronary artery "HI 1998 followed by PCI, HI 2005 followed by PCI, non-STEMI 2016 followed by CABG" COPD (chronic obstructive pulmonary disease) Depression Left bundle branch block (LBBB) on electrocardiogram Obesity (BMI 30-39.9) Family History Other Family history non-contributory Social History Smoking Status: Current every day smoker Tobacco Type: Cigarettes Cigarettes Per Day: 20; Second Hand Exposure: No; Hx Alcohol Use: No Hx Substance Use: No Preferred Language: Croatian Communication Ability: Effective Manager Ambulatory Required: No Beliefs That Will Affect Care: None marital status: / Current Living Situation: Alone Current Living Situation Comment: lives in One story home Feels Safe at Home: Yes Assistive Devices: Walker Physical Exam Vital Signs: Vital Signs - 24 hr 12/19/22 18:22 12/19/22 19:32 Temperature 36.8 C Temperature Source Temporal Artery Sc an Pulse Rate 90 70 Respiratory Rate 20 Respiratory Effort / Characteristics Non-Labored Sponta neous Respiratory Depth Normal Respiratory Patter n Regular Blood Pressure 109/57 L Blood Pressure Clarice n 74 Blood Pressure Pos ition Sitting Pulse Oximetry 96 Oxygen Delivery Me thod Room Air Sepsis Recent Feve r Within 48 Hours No Sepsis New/Unexpla ined Change in Men yudelka Status N/A Sepsis Action Take n by Nursing No Action Required Physical Exam: Physical Exam GENERAL: oriented to person, place, and time. appears well-developed and well- nourished. HENT: Exam performed. - Head: Normocephalic and atraumatic. EYES: Conjunctivae and EOM are normal. Right eye exhibits no discharge. Left eye exhibits no discharge. No scleral icterus. NECK: Normal range of motion. Neck supple. No JVD present. CV: Normal rate, regular rhythm, normal heart sounds and intact distal pulses. There is no peripheral edema. Palpable radial pulses bue. PULM/CHEST: Effort normal and breath sounds normal. No respiratory distress. No stridor. no wheezes. no rales. ABD: The abdomen is soft. There is no tenderness. NEURO: Motor and sensation grossly intact. SKIN: Skin is warm and dry. He is not diaphoretic. PSYCH: normal mood and affect. Behavior is normal. Judgment and thought content normal. Course Course 1903: The patient was evaluated in room B7. A complete history and physical exam was performed Cardiac monitoring: An order was placed for continuous cardiac monitoring. The monitor shows a rate of 90 with paced rhythm interpreted by me 2039: Vital signs stable.Labs show leukocytosis of 23.07. Hemoglobin 19.6. Platelet count 527. Is thought that the patient is hemoconcentrated. Potassium 2.3. Creatinine 1.95 up from baseline of approximately 0.9. Patient's troponin is elevated at 101.3. Patient reporting chest pain. Thought that the troponin elevation is most likely due to his acute kidney injury. CT of the abdomen pelv is negative. COVID-negative. Potassium repletion begun in the emergency department. [facility]. Administered Medications Potassium Chloride (K Juvenal / Wtr) 10 meq in 100 mls @ 100 mls/hr IV Q1H AFIA; Protocol Stop: 12/19/22 21:44 Last Admin: 12/19/22 19:56 Dose: 100 mls/hr Documented By: HECTOR Discontinued Medications Potassium Chloride/Sodium Chloride (Normal Saline W/20 Meq Kcl) 20 meq in 1,000 mls @ 125 mls/hr IV .Q8H AFIA; Protocol Stop: 01/18/23 19:44 Last Admin: 12/19/22 19:57 Dose: 125 mls/hr Documented By: HECTOR Medical Decision Making Laboratory Data Attestation: I reviewed the patient's lab results. 12/19/22 18:39 12/19/22 18:39 Lab Results 12/19/22 12/19/22 12/19/22 Range/Units 18:39 18:39 18:39 WBC 23.07 H (4.8-10.8) K/ul RBC 6.30 H (4.70-6.10) M/uL Hgb 19.6 H (14.0-18.0) g/dl Hct 53.6 H (42.0-52.0) % MCV 85.1 (80.0-100.0) fL MCH 31.1 (25.0-34.0) pg MCHC 36.6 H (32.0-36.0) g/dL RDW Std Deviation 40.9 (36.4-46.3) fL RDW Coeff of Shellie 13.4 (11.5-14.5) % Plt Count 527 H (130-400) K/uL MPV 9.9 (9.4-12.4) fL Immature Gran % (Auto) 0.8 % Neut % (Auto) 84.6 % Lymph % (Auto) 7.8 % Nolan % (Auto) 6.1 % Eos % (Auto) 0.2 % Baso % (Auto) 0.5 % Neut # (Auto) 19.53 H (1.40-6.50) K/uL Lymph # (Auto) 1.79 (1.2-3.4) K/uL Nolan # (Auto) 1.41 H (0.11-0.59) K/uL Eos # (Auto) 0.04 (0-0.50) K/uL Baso # (Auto) 0.11 (0-0.2) K/uL Immature Gran # (Auto) 0.19 (0.01-0.20) K/uL Sodium 136 (136-145) mmol/L Potassium 2.3 L* (3.5-5.1) mmol/L Chloride 103 (98-107) mmol/L Carbon Dioxide 18 L (21-32) mmol/L Anion Gap 15 H (3-11) BUN 95 H (6-23) mg/dl Creatinine 1.95 H (0.6-1.4) mg/dl Est Cr Clr Drug Dosing Not Reportable Est GFR ( Amer) 37.4 ml/min Est GFR (Non-Af Amer) 32.2 ml/min BUN/Creatinine Ratio 48.7 H (10-20) Glucose 202 H (70-99(Fasting)) mg/dl Calcium 8.6 (8.6-10.3) mg/dl Magnesium 1.7 (1.7-2.4) mg/dl Total Bilirubin 0.9 (0.2-1.0) mg/dl AST 19 (13-39) U/L ALT 22 (7-52) U/L Alkaline Phosphatase 106 H (34-104) U/L Troponin I High Sens 101.3 H* (0-20) pg/ml Total Protein 7.7 (6.0-8.3) gm/dl Albumin 4.2 (3.4-5.0) gm/dl Globulin 3.5 (2.5-4.0) gm/dl Albumin/Globulin Ratio 1.2 (0.9-2) Lipase 22 (11-82) U/L SARS-CoV-2 (PCR) NEGATIVE (Negative) Influenza Type A (PCR) Negative (Neg) Influenza Type B (PCR) Negative (Neg) RSV (RT-PCR) Negative (Neg) Imaging Data Attestation: I personally reviewed and interpreted this imaging study as follows: My Impression: Chest x-ray negative. Airway clear. No pneumothorax. No consolidation. No cardiomegaly or cephalization.. No free air under the diaphragm. No fractures of the skeletal structures. Radiologist's Impression: Abdomen/Pelvis CT 12/19/22 19:33 CT abd pelvis wo con CLINICAL HISTORY: abd pain TECHNIQUE: Helical axial images of the abdomen and pelvis were obtained. Automated dose lowering techniques and/or adjustment according to patient size were utilized for this exam. This exam was performed without intravenous contra st. CT DOSE: 702.91 mGy.cm COMPARISON: None available at the time of this dictation. FINDINGS: Lower chest: Atelectasis is noted in the right lower lung. Liver: Unremarkable. No focal lesions are seen. Gallbladder and biliary tree: Patient is status post cholecystectomy. No intra- or extrahepatic biliary ductal dilation. Pancreas: Unremarkable, no focal lesions. Spleen: Unremarkable. Adrenals: Unremarkable. Kidneys and ureters: Unremarkable. Bladder: Unremarkable. Reproductive organs: Unremarkable. Bowel: The appendix is normal. Lymph nodes Retroperitoneal: Unremarkable. Pelvic: Unremarkable. Mesenteric: Unremarkable. Peritoneum: Normal. Vessels: Atherosclerotic calcifications are seen. Abdominal wall: Unremarkable. Bones: Degenerative changes in the visualized spine. Extensive sclerotic endplate disease is noted in the lumbar spine. IMPRESSION: 1. No acute intra-abdominal abnormalities to explain abdominal pain. 2. Rounded atelectasis in the left lower lobe. ACT 112: Negative or not required by law. Electronically signed by: Syd Rust M.D. 12/19/2022 8:13 PM Chest X-Ray 12/19/22 20:36 XR chest 1V portable CLINICAL HISTORY: weakness TECHNIQUE: Single frontal radiograph of the chest was obtained. Comparison: Comparison is made to chest radiograph 10/04/2020 FINDINGS: Dual lead pacemaker is seen. Cardiomegaly is noted. Minimal left lower lung airspace opacity is seen. No evidence of pleural effusion or pneumothorax. IMPRESSION: Stable cardiomegaly is seen. Minimal left lower lung airspace opacity likely represents atelectasis with or without superimposed aspiration/pneumonia. ACT 112: Negative or not required by law. Electronically signed by: Syd Rust M.D. 12/19/2022 8:49 PM ECG Data Attestation: I personally reviewed and interpreted this ECG as follows: Additional Comments: Paced rhythm with a rate of 89. QRS 200 QTc 569. PVCs present. [facility] Narrative 1904: The patient was evaluated in room B7. A complete history and physical exam was performed Cardiac monitoring: An order was placed for continuous cardiac monitoring. The monitor shows a rate of 90 with paced rhythm interpreted by me 2039: Vital signs stable.Labs show leukocytosis of 23.07. Hemoglobin 19.6. Platelet count 527. Is thought that the patient is hemoconcentrated. Potassium 2.3. Creatinine 1.95 up from baseline of approximately 0.9. Patient's troponin is elevated at 101.3. Patient reporting chest pain. Thought that the troponin elevation is most likely due to his acute kidney injury. CT of the abdomen pelvis negative. COVID-negative. Potassium repletion begun in the emergency department. [facility]. 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 ED Provider: Robinson Herrera Discharge Problem: Hypokalemia, MIHIR (acute kidney injury), Elevated troponin Patient Disposition: Admitted As Inpatient Forms Stand Alone Forms: [facility] [employer] Prescriptions Prescriptions: No Action escitalopram oxalate 20 mg tablet 20 mg PO DAILY aspirin 81 mg Tablet,Delayed Release (Dr/Ec) 81 mg PO DAILY nitroglycerin 400 mcg/spray [place],Non-Aerosol 1 spry Sublingual UD PRN (Reason: Chest Pain) Rx Instructions: may use every 5 minutes as needed for chest pain albuterol sulfate [Ventolin HFA] 90 mcg/actuation HFA aerosol inhaler 2 puff inhalation Q4H PRN (Reason: Shortness Of Breath Or Wheezing) Dulera 100-5 mcg/actuation HFA aerosol inhaler 2 puff inhalation BID (DME) insulin admin supplies insulin pen See Dose Instructions .ROUTE .MEDSUPPLY Qty: 1 0RF Dose Instruction: As directed Rx Instructions: As directed isosorbide dinitrate 10 mg tablet 10 mg PO DAILY atorvastatin 80 mg Tablet 80 mg PO QAM clopidogrel [Plavix] 75 mg tablet 75 mg PO DAILY fenofibrate micronized 134 mg capsule 134 mg PO DAILY metoprolol succinate [Toprol XL] 25 mg tablet extended release 24 hr 25 mg PO [facility] fluticasone propionate [Flonase Allergy Relief] 50 mcg/actuation Spra y,Suspension 2 spray INTRANASAL DAILY Entresto 24-26 mg tablet 1 tab PO BID torsemide 10 mg tablet 10 mg PO DAILY insulin glargine [Basaglar KwikPen U-100 Insulin] 100 unit/mL (3 mL) insulin pen 30 unit SUBCUT [facility] Eliquis 5 mg tablet 5 mg PO [facility] bupropion HCl 150 mg tablet sustained-release 12 hr 150 mg PO [facility] potassium chloride 10 mEq tablet extended release 10 meq PO [facility] Referrals Referrals: Viet Holly DO [Primary Care Provider] -
[2022-12-19] MEDS ORDERED: NSS + 20MEQ KCL 20 MEQ/1,000 ML BAG IV ONE (21:19)
[2022-12-19] MEDS ORDERED: NSS+KCL 20 MEQ 1000ML IV ONE (21:27)
[2022-12-19] MEDS ORDERED: POTASSIUM CHLORIDE PWD 20 MEQ PACK PO STA (21:47)
--- NOTE | 2022-12-19 23:19 | CT Scan Report ---
Exam(s): CT NECK Without Contrast EXAM: CT Neck Without Intravenous Contrast CLINICAL HISTORY: Reason for exam: sore throat. TECHNIQUE: Axial computed tomography images of the neck without intravenous contrast. Automated exposure control was utilized for the study. A dose lowering technique was utilized adhering to the principles of ALARA. COMPARISON: No relevant prior studies available. FINDINGS: Oropharynx: Unremarkable. No significant tonsillar enlargement. Hypopharynx: Unremarkable. Larynx: Unremarkable. Normal epiglottis. Trachea: Unremarkable. Retropharyngeal space: Unremarkable. Submandibular/parotid glands: Unremarkable. Glands are normal in size. Thyroid: Unremarkable. No enlarged or calcified nodules. Bones/joints: Degenerative changes of the spine. No acute fracture. Soft tissues: Unremarkable. Vasculature: Atherosclerotic changes of the aorta. Lymph nodes: Unremarkable. No lymphadenopathy. Lung apices: Unremarkable as visualized. IMPRESSION: No acute findings in the neck. Electronically signed by: Len Witt MD 12/19/22 23:18 PM
[2022-12-19] MEDS ORDERED: POTASSIUM CHLORIDE PWD 20 MEQ PACK PO ONE (23:30)
[2022-12-19] MEDS ORDERED: GLUCOSE 40% GEL 15 GM TUBE PO PRN (23:31)
[2022-12-19] MEDS ORDERED: GLUCOSE 10 TAB/TUBE PO PRN (23:31)
[2022-12-19] MEDS ORDERED: CARBOHYDRATES FOR HYPOGLYCEMIA PO PRN (23:31)
[2022-12-19] MEDS ORDERED: GLUCAGON FOR INJ 1 MG VIAL SQ PRN (23:31)
[2022-12-19] MEDS ORDERED: traMADol HCL 50 MG TABLET PO PRN (23:31)
[2022-12-19] MEDS ORDERED: DEXTROSE 50% 50 ML SYRINGE IV PRN (23:31)
[2022-12-19] MEDS ORDERED: ACETAMINOPHEN 325 MG TAB PO PRN (23:31)
[2022-12-19] MEDS ORDERED: PROMETHAZINE HCL 6.25 MG in SODIUM CHLORIDE 0.9% 50 ML IV PRN (23:31)
--- NOTE | 2022-12-19 23:40 | History & Physical Report ---
Date of Service December 19, 2022 Assessment & Plan (1) Hypokalemia: Plan: ARF, hypokalemia Multifactorial : diarrheal illness (rule out treatable infectious causes), home medications Back pain secondary to illness rule out UTI Abnormal troponin in the setting of kidney dysfunction, patient without chest pain or shortness of breath complaints chronic systolic heart failure, status post ICD, patient on the dry side hx CAD status post CABG/stent chronic left bundle branch block history PAF, paced rhythm on Eliquis, outpatient device interrogation and Cardiology follow-up visit contemplated this week as per daughter hypertension, BP on the lower side hyperlipidemia on statin Rx COPD, past tobacco abuse, lung status at baseline DM 2 insulin requiring, suboptimal control as of recent hemoglobin A1c of 7.8 last August 2022 PCU Replace electrolytes Baseline UA monitor creatinine response to gentle IV hydration Hold home diuretics, Entresto until creatinine back to baseline Stool CS, C. difficile Follow troponin, TTE for progression Inpatient ICD interrogation and cardiology follow-up visit as per daughter request Basal bolus insulin adjusted for decreased kidney function, ISS BG goal 110-140, carb count coverage, carb count coverage DVT prophylaxis with Eliquis Full code Patient daughter requesting updates from providers. Nicol Palomo, contact #[phone]. Text document was generated using [employer] voice recognition software. It may contain grammatical or spelling errors. Kindly contact undersigned for clarification of any documentation item in question. History of Present Illness Chief Complaint: Increasing weakness, diarrhea Primary Care Provider: Viet Holly DO History obtained from patient, family, and records. Medical history significant for chronic systolic heart failure (EF 35 to 40%, TTE 2020) status post ICD, CAD status post CABG/stent, chronic left bundle branch block, history PAF on Eliquis, hypertension, hyperlipidemia, COPD, past tobacco abuse, DM 2 insulin requiring, mood disorder, past tobacco abuse. Last confinement September 2020 for generalized weakness and fall at home. 2 weeks history of watery diarrhea symptoms with minimal abdominal/back discomfort. Possible sick contacts. No recent antibiotics. Patient has not received COVID-19 vaccination. Sore throat symptoms. Denies chest pain, SOB, cough, fever, chills. Not peeing a lot despite water pills as per daughter. Patient not as active as per daughter. Patient brought to the ER for evaluation for worsening symptoms. 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 Allergies Allergy/AdvReac Type Severity Reaction Status Date / Time VELMA Inhibitors Allergy Unknown unknown Verified 12/19/22 21:19 Home Medications Medication Instructions Recorded Confirmed Type nitroglycerin 400 mcg/spray 1 spry sublingual UD PRN Chest Pain 09/05/18 12/19/22 History translingual insulin admin supplies #1 ea 07/12/19 12/19/22 Rx atorvastatin 80 mg tablet 80 mg PO QA 03/19/20 12/19/22 History fenofibrate micronized 134 mg 134 mg PO [facility] 03/19/20 12/19/22 History capsule fluticasone propionate 50 2 spray intranasal DAILY 03/19/20 12/19/22 History mcg/actuation nasal spray,suspension (Flonase Allergy Relief) isosorbide dinitrate 10 mg tablet 10 mg PO [facility] 03/19/20 12/19/22 History metoprolol succinate 25 mg 25 mg PO [facility] 03/19/20 12/19/22 History tablet,extended release 24 hr (Toprol XL) sacubitril 24 mg-valsartan 26 mg 1 tab PO [facility] 03/19/20 12/19/22 History tablet (Entresto) torsemide 10 mg tablet 10 mg PO [facility] 03/19/20 12/19/22 History insulin glargine 100 unit/mL (3 30 unit subcut [facility] 10/04/20 12/19/22 History mL) subcutaneous pen (Basaglar KwikPen U-100 Insulin) apixaban 5 mg tablet (Eliquis) 5 mg PO [facility] 12/19/22 12/19/22 History bupropion HCl 150 mg tablet,12 hr 150 mg PO [facility] 12/19/22 12/19/22 History sustained-release potassium chloride 10 mEq 10 meq PO [facility] 12/19/22 12/19/22 History tablet,extended release Past Med/Surg History Medical History (Updated 12/19/22 @ 21:18 by Robinson Herrera) Anxiety CAD (coronary artery disease), [place] coronary artery "DC 1998 followed by PCI, DC 2005 followed by PCI, non-STEMI 2017 followed by CABG" COPD (chronic obstructive pulmonary disease) Depression Left bundle branch block (LBBB) on electrocardiogram Obesity (BMI 30-39.9) Family History Other Family history non-contributory Social History Smoking Status: Current every day smoker Tobacco Type: Cigarettes Cigarettes Per Day: 20; Second Hand Exposure: No; Hx Alcohol Use: Yes Alcohol type: beer and hard liquor Hx Substance Use: Yes Preferred Language: Belgian Communication Ability: Effective Hospitality House Supervisor Required: No Beliefs That Will Affect Care: None marital status: / Current Living Situation: Alone Current Living Situation Comment: lives in One story home Other Information That Helps Us Care for You: No Feels Safe at Home: Yes Safety Concerns: Feels Safe At This Time Assistive Devices: Denture - Upper and Denture - Lower Review of Systems Review of Systems: As per HPI, all other systems reviewed and negative Physical Exam Physical Exam: GENERAL: Slightly uncomfortable, pleasant, mild dysphonia, no respiratory distress SKIN: Normal color, warm HEENT: [place] palpebral conjunctivae, no ptosis, dry buccal mucosa NECK : Supple, no tenderness CHEST : Decreased breath sounds, no tenderness HEART : RRR, no obvious murmurs ABDOMEN: Some distention, nontender EXTREMITIES : No LE swelling/tenderness, no other conspicuous deformities noted NEUROLOGIC : Coherent, no facial asymmetry, no other gross focality Results & Data Results & Data Vital Signs (Past 12 Hours) Vital Signs Temp Pulse Resp BP Pulse Ox O2 Del Method 12/19/22 19:32 70 12/19/22 18:22 36.8 C 90 20 109/57 L 96 Room Air Laboratory Results Laboratory Results WBC 18.93 K/ul (4.8-10.8) H 12/20/22 06:00 RBC 5.69 M/uL (4.70-6.10) 12/20/22 06:00 Hgb 17.9 g/dl (14.0-18.0) 12/20/22 06:00 Hct 48.1 % (42.0-52.0) 12/20/22 06:00 MCV 84.5 fL (80.0-100.0) 12/20/22 06:00 MCH 31.5 pg (25.0-34.0) 12/20/22 06:00 MCHC 37.2 g/dL (32.0-36.0) H 12/20/22 06:00 RDW Std Deviation 41.2 fL (36.4-46.3) 12/20/22 06:00 RDW Coeff of Shellie 13.3 % (11.5-14.5) 12/20/22 06:00 Plt Count 435 K/uL (130-400) H 12/20/22 06:00 MPV 9.9 fL (9.4-12.4) 12/20/22 06:00 Immature Gran % (Auto) 0.9 % 12/20/22 06:00 Neut % (Auto) 76.2 % 12/20/22 06:00 Lymph % (Auto) 13.7 % 12/20/22 06:00 Josephine % (Auto) 7.9 % 12/20/22 06:00 Eos % (Auto) 0.7 % 12/20/22 06:00 Baso % (Auto) 0.6 % 12/20/22 06:00 Neut # (Auto) 14.41 K/uL (1.40-6.50) H 12/20/22 06:00 Lymph # (Auto) 2.60 K/uL (1.2-3.4) 12/20/22 06:00 Josephine # (Auto) 1.50 K/uL (0.11-0.59) H 12/20/22 06:00 Eos # (Auto) 0.14 K/uL (0-0.50) 12/20/22 06:00 Baso # (Auto) 0.11 K/uL (0-0.2) 12/20/22 06:00 Immature Gran # (Auto) 0.17 K/uL (0.01-0.20) 12/20/22 06:00 Sodium 137 mmol/L (136-145) 12/20/22 06:00 Potassium 2.7 mmol/L (3.5-5.1) L 12/20/22 06:00 Chloride 107 mmol/L (98-107) 12/20/22 06:00 Carbon Dioxide 18 mmol/L (21-32) L 12/20/22 06:00 Anion Gap 12 (3-11) H 12/20/22 06:00 BUN 86 mg/dl (6-23) H 12/20/22 06:00 Creatinine 1.63 mg/dl (0.6-1.4) H D 12/20/22 06:00 Est Cr Clr Drug Dosing 38.8 ml/min 12/20/22 06:00 Est GFR ( Amer) 46.4 ml/min 12/20/22 06:00 Est GFR (Non-Af Amer) 40.0 ml/min 12/20/22 06:00 BUN/Creatinine Ratio 52.8 (10-20) H 12/20/22 06:00 Glucose 97 mg/dl (70-99(Fasting)) 12/20/22 06:00 POC Glucose 227 mg/dl (70-99) H 12/19/22 23:10 Estimat Average Glucose 160 mg/dl 12/19/22 18:39 Hemoglobin A1c 7.2 % (4.5-5.6) H 12/19/22 18:39 Lactate 1.8 mmol/L (0.4-2.0) 12/20/22 00:48 Calcium 7.8 mg/dl (8.6-10.3) L 12/20/22 06:00 Magnesium 1.7 mg/dl (1.7-2.4) 12/19/22 18:39 Total Bilirubin 0.9 mg/dl (0.2-1.0) 12/19/22 18:39 AST 19 U/L (13-39) 12/19/22 18:39 ALT 22 U/L (7-52) 12/19/22 18:39 Alkaline Phosphatase 106 U/L (34-104) H 12/19/22 18:39 Troponin I High Sens 100.1 pg/ml (0-20) H* 12/19/22 23:28 Total Protein 7.7 gm/dl (6.0-8.3) 12/19/22 18:39 Albumin 4.2 gm/dl (3.4-5.0) 12/19/22 18:39 Globulin 3.5 gm/dl (2.5-4.0) 12/19/22 18:39 Albumin/Globulin Ratio 1.2 (0.9-2) 12/19/22 18:39 Lipase 22 U/L (11-82) 12/19/22 18:39 TSH 4.361 uIu/ml (0.300-4.500) 12/19/22 18:39 Urine Color Trigg 12/20/22 04:30 Urine Appearance Clear (Clear) 12/20/22 04:30 Urine pH 6.0 (4.5-7.5) 12/20/22 04:30 Ur Specific [place] 1.020 (1.000-1.030) 12/20/22 04:30 Urine Protein 1+ (Negative) H 12/20/22 04:30 Urine Glucose (UA) Negative (Negative) 12/20/22 04:30 Urine Ketones Negative (Negative) 12/20/22 04:30 Urine Blood Negative (Negative) 12/20/22 04: Urine Nitrite Negative (Negative) 12/20/22 04:30 Urine Bilirubin 1+ (Negative) H 12/20/22 04:30 Urine Urobilinogen Negative (Negative) 12/20/22 04:30 Ur Leukocyte Esterase Negative (Negative) 12/20/22 04:30 Urine RBC 0-4 /hpf (0-4) 12/20/22 04:30 Urine WBC 0-5 /hpf (0-5) 12/20/22 04:30 Ur Epithelial Cells 0-5 /lpf (0-5) 12/20/22 04:30 Urine Bacteria Negative (Negative) 12/20/22 04:30 Hyaline Casts 5-10 /lpf (0-5) H 12/20/22 04:30 Urine Mucus Present (None Prsent) A 12/20/22 04:30 Stl C. cayetanensis PCR Not Detected (NotDetected) 12/20/22 06:00 Stool Rotavirus A PCR Not Detected (NotDetected) 12/20/22 06:00 Stl Adenov F 40/41 PCR Not Detected (NotDetected) 12/20/22 06:00 Stool Astrovirus (PCR) Not Detected (NotDetected) 12/20/22 06:00 Stool Campylobacter PCR Not Detected (NotDetected) 12/20/22 06:00 Stl C. diff Tox B Gene Negative Cdiff Gene (Neg) 12/20/22 06:00 Stool Cryptosporidium PCR Not Detected (NotDetected) 12/20/22 06:00 Stl E.coli Shiga Tox PCR Not Detected (NotDetected) 12/20/22 06:00 Stl Enterotoxigenic E PCR DETECTED (NotDetected) A* 12/20/22 06:00 Stool EPEC (PCR) Not Detected (NotDetected) 12/20/22 06:00 Stool EAEC (PCR) Not Detected (NotDetected) 12/20/22 06:00 Stl E. histolytica PCR Not Detected (NotDetected) 12/20/22 06:00 Stool Giardia Lamblia PCR Not Detected (NotDetected) 12/20/22 06:00 Stool Salmonella PCR Not Detected (NotDetected) 12/20/22 06:00 Stool Sapovirus (PCR) Not Detected (NotDetected) 12/20/22 06:00 Stl P. shigelloides PCR Not Detected (NotDetected) 12/20/22 06:00 Stl Shigella/EIEC PCR Not Detected (NotDetected) 12/20/22 06:00 St Y.enterocolitica PCR Not Detected (NotDetected) 12/20/22 06:00 Stool Vibrio (PCR) Not Detected (NotDetected) 12/20/22 06:00 Stl Vibrio cholerae PCR Not Detected (NotDetected) 12/20/22 06:00 Stl Norovirus GI/GII PCR DETECTED (NotDetected) A* 12/20/22 06:00 SARS-CoV-2 (PCR) NEGATIVE (Negative) 12/19/22 18:39 Influenza Type A (PCR) Negative (Neg) 12/19/22 18:39 Influenza Type B (PCR) Negative (Neg) 12/19/22 18:39 RSV (RT-PCR) Negative (Neg) 12/19/22 18:39 Impressions Abdomen/Pelvis CT 12/19/22 19:33 CT abd pelvis wo con CLINICAL HISTORY: abd pain TECHNIQUE: Helical axial images of the abdomen and pelvis were obtained. Automated dose lowering techniques and/or adjustment according to patient size were utilized for this exam. This exam was performed without intravenous contrast. CT DOSE: 702.91 mGy.cm COMPARISON: None available at the time of this dictation. FINDINGS: Lower chest: Atelectasis is noted in the right lower lung. Liver: Unremarkable. No focal lesions are seen. Gallbladder and biliary tree: Patient is status post cholecystectomy. No intra- or extrahepatic biliary ductal dilation. Pancreas: Unremarkable, no focal lesions. Spleen: Unremarkable. Adrenals: Unremarkable. Kidneys and ureters: Unremarkable. Bladder: Unremarkable. Reproductive organs: Unremarkable. Bowel: The appendix is normal. Lymph nodes Retroperitoneal: Unremarkable. Pelvic: Unremarkable. Mesenteric: Unremarkable. Peritoneum: Normal. Vessels: Atherosclerotic calcifications are seen. Abdominal wall: Unremarkable. Bones: Degenerative changes in the visualized spine. Extensive sclerotic endplate disease is noted in the lumbar spine. IMPRESSION: 1. No acute intra-abdominal abnormalities to explain abdominal pain. 2. Rounded atelectasis in the left lower lobe. ACT 112: Negative or not required by law. Electronically signed by: Syd Rust M.D. 12/19/2022 8:13 PM Chest X-Ray 12/19/22 20:36 XR chest 1V portable CLINICAL HISTORY: weakness TECHNIQUE: Single frontal radiograph of the chest was obtained. Comparison: Comparison is made to chest radiograph 10/04/2020 FINDINGS: Dual lead pacemaker is seen. Cardiomegaly is noted. Minimal left lower lung airspace opacity is seen. No evidence of pleural effusion or pneumothorax. IMPRESSION: Stable cardiomegaly is seen. Minimal left lower lung airspace opacity likely represents atelectasis with or without superimposed aspiration/pneumonia. ACT 112: Negative or not required by law. Electronically signed by: Syd Rust M.D. 12/19/2022 8:49 PM Soft Tissue Neck CT 12/19/22 21:41 Exam(s): CT NECK Without Contrast EXAM: CT Neck Without Intravenous Contrast CLINICAL HISTORY: Reason for exam: sore throat. TECHNIQUE: Axial computed tomography images of the neck without intravenous contrast. Automated exposure control was utilized for the study. A dose lowering technique was utilized adhering to the principles of ALARA. COMPARISON: No relevant prior studies available. FINDINGS: Oropharynx: Unremarkable. No significant tonsillar enlargement. Hypopharynx: Unremarkable. Larynx: Unremarkable. Normal epiglottis. Trachea: Unremarkable. Retropharyngeal space: Unremarkable. Submandibular/parotid glands: Unremarkable. Glands are normal in size. Thyroid: Unremarkable. No enlarged or calcified nodules. Bones/joints: Degenerative changes of the spine. No acute fracture. Soft tissues: Unremarkable. Vasculature: Atherosclerotic changes of the aorta. Lymph nodes: Unremarkable. No lymphadenopathy. Lung apices: Unremarkable as visualized. IMPRESSION: No acute findings in the neck. Electronically signed by: Len Witt MD 12/19/22 23:18 PM Diagnostic Findings EKG as per my interpretation : Rate 90, paced rhythm
[2022-12-19] MEDS ORDERED: Patient's HEIGHT &/or WEIGHT Needed SCH (23:45)
[2022-12-20] MEDS: LANTUS PER UNIT CHARGE SQ SCH ×2 (00:21→21:42)
[2022-12-20] MEDS: INSULIN ASPART PER UNIT CHARGE SC SCH ×5 (00:22→20:50)
[2022-12-20] MEDS ORDERED: POTASSIUM CHLORIDE CRTAB 20 MEQ TABCR PO STA (00:23)
[2022-12-20] MEDS: APIXABAN 5 MG TABLET PO SCH ×3 (00:59→21:43)
[2022-12-20] MEDS: POTASSIUM CHLORIDE / WTR 10 MEQ/100 ML PLCT IV SCH ×4 (00:59→04:17)
[2022-12-20] MEDS ORDERED: POTASSIUM CHLORIDE PWD 20 MEQ PACK PO ONE (01:00)
[2022-12-20] MEDS ORDERED: POTASSIUM CHLORIDE CRTAB 20 MEQ TABCR PO ONE ×2 (02:00→03:30)
[2022-12-20] MEDS ORDERED: NSS + 20MEQ KCL 20 MEQ/1,000 ML BAG IV ONE (04:00)
[2022-12-20 04:49] LABS: Appearance Urine Clear (Clear); Bilirubin Urine 1+ (Negative); Blood Urine Negative (Negative); Color Urine Orange; Glucose Urine UA Negative (Negative); Ketones Urine Negative (Negative); Leukocyte Esterase Urine Negative (Negative); Nitrite Urine Negative (Negative); Protein Urine 1+ (Negative); Urobilinogen Urine Negative (Negative)
[2022-12-20 05:06] LABS: Epithelial Cell Urine 0-5 /lpf (0-5)
[2022-12-20 05:07] LABS: Bacteria Urine Negative (Negative); Mucus Urine Present (None Prsent); RBC Urine 0-4 /hpf (0-4); WBC Urine 0-5 /hpf (0-5)
[2022-12-20 06:28] LABS: Basophils # (auto) 0.11 K/uL (0-0.2); Basophils % (auto) 0.6 %; Eosinophils # (auto) 0.14 K/uL (0-0.50); Eosinophils % (auto) 0.7 %; Hematocrit (blood only) 48.1 % (42.0-52.0); Hemoglobin 17.9 g/dl (14.0-18.0); Immature Granulocytes # (auto) 0.17 K/uL (0.01-0.20); Immature Granulocytes % (auto) 0.9 %; Lymphocytes % (auto) 13.7 %; Mean Corpuscular Hemoglobin 31.5 pg (25.0-34.0); Mean Corpuscular Hgb Conc 37.2 g/dL (32.0-36.0); Mean Corpuscular Volume 84.5 fL (80.0-100.0); Mean Platelet Volume 9.9 fL (9.4-12.4); Monocytes % (auto) 7.9 %; Neutrophils # (auto) 14.41 K/uL (1.40-6.50); Neutrophils % (auto) 76.2 %; Platelet Count 435 K/uL (130-400); RDW Coefficient of Variation 13.3 % (11.5-14.5); RDW Standard Deviation 41.2 fL (36.4-46.3); Red Blood Count 5.69 M/uL (4.70-6.10); White Blood Count 18.93 K/ul (4.8-10.8)
[2022-12-20 06:31] LABS: Estimated Average Glucose 160 mg/dl; Hemoglobin A1C 7.2 % (4.5-5.6)
[2022-12-20 06:43] LABS: BUN Creatinine Ratio 52.8 (10-20); Calcium 7.8 mg/dl (8.6-10.3); Creatinine Clr Calc Pharmacy 38.8 ml/min; Est GFR (African American) 46.4 ml/min; Potassium 2.7 mmol/L (3.5-5.1)
[2022-12-20] MEDS ORDERED: MAGNESIUM SULFATE / D5W 1 GM/100 ML BAG IV ONE (06:53)
[2022-12-20] MEDS ORDERED: POTASSIUM CHLORIDE / WTR 10 MEQ/100 ML PLCT IV SCH (07:00)
[2022-12-20] MEDS ORDERED: LACTATED RINGER'S 1,000 ML IV ONE (07:13)
[2022-12-20] MEDS ORDERED: LACTATED RINGER'S 1,000 ML IV SCH (07:15)
[2022-12-20 07:39] LABS: Adenovirus F 40/41 PCR Not Detected (NotDetected); Astrovirus PCR Not Detected (NotDetected); Campylobacter PCR Not Detected (NotDetected); Cryptosporidium PCR Not Detected (NotDetected); Cyclospora cayetanensis PCR Not Detected (NotDetected); Entamoeba histolytica PCR Not Detected (NotDetected); Enteroaggregative E.coli(EAEC) Not Detected (NotDetected); Enteropathogenic E.coli (EPEC) Not Detected (NotDetected); Giardia lamblia PCR Not Detected (NotDetected); Plesiomonas shigelloides PCR Not Detected (NotDetected); Rotavirus A PCR Not Detected (NotDetected); Salmonella PCR Not Detected (NotDetected); Sapovirus PCR Not Detected (NotDetected); Shiga-like Toxin E.coli (STEC) Not Detected (NotDetected); Shigella/Enteroinvasive E.coli Not Detected (NotDetected); Vibrio cholerae PCR Not Detected (NotDetected); Vibrio species PCR Not Detected (NotDetected); Yersinia enterocolitica PCR Not Detected (NotDetected)
[2022-12-20 07:45] LABS: Enterotoxigenic E.coli (ETEC) DETECTED (NotDetected); Norovirus GI/GII PCR DETECTED (NotDetected)
--- NOTE | 2022-12-20 08:29 | Cardiology Consultation ---
Date of Consultation December 20, 2022 Assessment & Plan (1) Hypokalemia: (2) MIHIR (acute kidney injury): (3) Gastroenteritis due to norovirus: (4) Ischemic cardiomyopathy: (5) Biventricular ICD (implantable cardioverter-defibrillator) in place: Plan Patient admitted for weakness/lethargy after 2 weeks of diarrhea, diagnosed with gastroenteritis and stool possible for entero virus and norovirus. Supportive care recommended. Patient significantly dehydrated and hypokalemia and MIHIR noted on labs on admission. Entresto, torsemide on hold. Potassium and magnesium supplemented. Follow closely. Labs to be repeated this afternoon Increase metoprolol to 25 mg BID (he was to be taking this dose as outpatient) to aid with BIV pacing Appropriate function of device. battery longevity of 11 months. Approx 80% biv pacing Case discussed with Dr. Arteaga. Will follow. Supervising Physician Co-Signing Physician Notes Supervising Physician Attestation: I have personally performed a history and physical examination on the patient. I agree with the physician janitorial assistant's findings and plan as documented with the following additions. Subjective: Patient without subjective complaints with the exception of ongoing diarrhea. Telemetry reveals sinus rhythm with biventricular pacing Exam: Cardiovascular regular rhythm, no murmurs, no edema Chest: Left infraclavicular AICD pocket clean dry and intact no erythema, no revision Data: Most recent echocardiogram was performed At [facility] 10/06/2020: LVEF moderately reduced, 35-40%. Assessment and Plan: Diarrhea with stool testing positive for Noroviurs and Enterotoxigenic Ecoli Hypokalemia History of ischemic cardiomyopathy, biventricular pacemaker AICD (right atrial lead, right ventricular lead, His bundle lead) -Device was interrogated with the assistance of the [employer] manufacturers service representative. The amplitude of the RV pacemaker output was reduced, and this will reduce the voltage of the pacemaker spikes noted on telemetry and EKG. Settings also adjusted to optimize generator longevity, generator longevity estimated to be 6 months increased to 11 months with changes in settings. -Increase metoprolol to promote therapeutic biventricular pacing. -Agree with ongoing electrolyte replacement as already ordered by the primary service. DVT prophylaxis: Patient is on anticoagulation with Wood Arteaga DO History of Present Illness Reason for Consultation: Dehydration; ICD; history of CHF Requesting Physician: Dr. Monteiro Attending Physician: Dr. Arteaga History of Present Illness Patient is a 77 year old male known to [facility], Dr. Bermeo for complex history includin.Atherosclerotic coronary disease status post prior coronary stenting of the LAD in 1998, right coronary artery in 2005. 2.Crescendo angina in a setting of paroxysmal atrial fibrillation, acute emotional stressors, June 2017, culminating in cardiac catheterization with left main coronary disease and subsequent coronary bypass grafting, receiving YAN graft to LAD, saphenous vein graft to the ramus, saphenous vein graft to the circumflex on 06/19/2017. 3.Hypertension. 4.Left bundle-branch block. 5. moderate left ventricular dysfunctionEF 35-40% 6.Chronic obstructive lung disease, last exacerbation, August 2017. 7. Hospitalization July 08, 2019 with acute decompensated systolic and diastolic heart failure 8. Status post biventricular pacer defibrillator , [employer] Claria [id number] MRI US [id number] 2019 9. Atrial fibrillation newly observed October 12, 2022, started on Eliquis and metoprolol increased Patient came to [facility] with diffuse weakness, lethargy after 2 weeks of significant watery diarrhea. On admission, MIHIR and hypokalemia noted at 2.3. Entresto, torsemide held. EKG demonstrated chronic ventricular pacing and there was initial concerns about pacer spikes within the QRS. Cardiology consulted to aid with management of device and medications. Stool tests positive for norovirus and entero virus At time of consult, [employer] rep present to interrogate BIV device. Appropriate function of device. changes were made to aid with WAREHOUSE DELIVERY MANAGER function. RV output's reduced and increased LV/RV offset to 80 ms. RV set slightly above threshold, monitor only. Patient feeling well at time of consult. Diarrhea improving. No abdominal pain this morning. No dizziness or lightheadedness. He reports cough since admission. NO SOB. No chest pain. He reportedly was only taking one torsemide 10 mg tablet at home without recent changes. He is unsure if he was taking potassium supplement leading up to admission. Also per review of meds, it appears he is only taking metoprolol 25 mg daily. this was to be increased to 25 mg BID per last cardio office note to aid with afib with borderline elevated rates and reduced BIV pacing. Allergies Allergy/AdvReac Type Severity Reaction Status Date / Time VELMA Inhibitors Allergy Unknown unknown Verified 12/19/22 21:19 Home Medications Medication Instructions Recorded Confirmed Type nitroglycerin 400 mcg/spray 1 spry sublingual UD PRN Chest Pain 09/05/18 12/19/22 History translingual insulin admin supplies #1 ea 07/12/19 12/19/22 Rx atorvastatin 80 mg tablet 80 mg PO QAM 03/19/20 12/19/22 History fenofibrate micronized 134 mg 134 mg PO QA 03/19/20 12/19/22 History capsule fluticasone propionate 50 2 spray intranasal DAILY 03/19/20 12/19/22 History mcg/actuation nasal spray,suspension (Flonase Allergy Relief) isosorbide dinitrate 10 mg tablet 10 mg PO [facility] 03/19/20 12/19/22 History metoprolol succinate 25 mg 25 mg PO [facility] 03/19/20 12/19/22 History tablet,extended release 24 hr (Toprol XL) sacubitril 24 mg-valsartan 26 mg 1 tab PO [facility] 03/19/20 12/19/22 History tablet (Entresto) torsemide 10 mg tablet 10 mg PO [facility] 03/19/20 12/19/22 History insulin glargine 100 unit/mL (3 30 unit subcut [facility] 10/04/20 12/19/22 History mL) subcutaneous pen (Basaglar KwikPen U-100 Insulin) apixaban 5 mg tablet (Eliquis) 5 mg PO [facility] 12/19/22 12/19/22 History bupropion HCl 150 mg tablet,12 hr 150 mg PO [facility] 12/19/22 12/19/22 History sustained-release potassium chloride 10 mEq 10 meq PO [facility] 12/19/22 12/19/22 History tablet,extended release Patient History Medical History (Updated 12/20/22 @ 16:01 by Yaniv Meyers MD) Anxiety CAD (coronary artery disease), [place] coronary artery "OK 1998 followed by PCI, OK 2005 followed by PCI, non-STEMI 2016 followed by CABG" COPD (chronic obstructive pulmonary disease) Depression Left bundle branch block (LBBB) on electrocardiogram Obesity (BMI 30-39.9) Family History Other Family history non-contributory Social History Smoking Status: Current every day smoker Tobacco Type: Cigarettes Cigarettes Per Day: 20; Second Hand Exposure: No; Hx Alcohol Use: Yes Alcohol type: beer and hard liquor Hx Substance Use: Yes Preferred Language: Hebrew Communication Ability: Effective Health Care Manager Required: No Beliefs That Will Affect Care: None marital status: / Current Living Situation: Alone Current Living Situation Comment: lives in One story home Other Information That Helps Us Care for You: No Feels Safe at Home: Yes Safety Concerns: Feels Safe At This Time Assistive Devices: None Review of Systems Review of Systems: All systems reviewed & are unremarkable except as noted in HPI & below Physical Exam Constitutional: WD/WN, vitals as above well developed and + obese; no acute distress Neck: trachea midline, no thyromegaly + thick neck Respiratory: + cough; no labored breathing Auscultation: + rhonchi Cardiovascular: Rate/Rhythm: regular rate and regular rhythm Heart Sounds: no murmur Vessels: no JVD Extremities: no edema Gastrointestinal (Abdomen): normal bowel sounds, soft, nontender, no hepatosplenomegaly Neurologic: PERRL, EOMI, accommodation nl, no face palsy, no dysarthria Psychiatric: A+Ox3, euthymic affect Results & Data Vital Signs (Past 12 Hours) Vital Signs Temp Pulse Pulse Resp BP Pulse Ox Pulse Ox 12/20/22 07:09 36.5 C 85 18 92/47 L 97 12/20/22 03:55 36.8 C 78 18 121/70 98 12/20/22 04:12 87 12/19/22 23:31 97 12/19/22 23:06 36.6 C 80 20 93/56 L 97 12/19/22 22:19 83 18 106/72 97 O2 Del Method O2 Del Method 12/20/22 07:09 Room Air 12/20/22 03:55 Room Air 12/20/22 04:12 12/19/22 23:31 Room Air 12/19/22 23:06 Room Air 12/19/22 22:19 Laboratory Results Cardiac Enzymes 12/19/22 12/19/22 Range/Units 18:39 23:28 AST 19 (13-39) U/L Troponin I High Sens 101.3 H* 100.1 H* (0-20) pg/ml CBC 12/19/22 12/20/22 Range/Units 18:39 06:00 WBC 23.07 H 18.93 H (4.8-10.8) K/ul RBC 6.30 H 5.69 (4.70-6.10) M/uL Hgb 19.6 H 17.9 (14.0-18.0) g/dl Hct 53.6 H 48.1 (42.0-52.0) % Plt Count 527 H 435 H (130-400) K/uL Neut # (Auto) 19.53 H 14.41 H (1.40-6.50) K/uL Lymph # (Auto) 1.79 2.60 (1.2-3.4) K/uL Traverse # (Auto) 1.41 H 1.50 H (0.11-0.59) K/uL Eos # (Auto) 0.04 0.14 (0-0.50) K/uL Baso # (Auto) 0.11 0.11 (0-0.2) K/uL Comprehensive Metabolic Panel 12/19/22 12/20/22 Range/Units 18:39 06:00 Sodium 136 137 (136-145) mmol/L Potassium 2.3 L* 2.7 L (3.5-5.1) mmol/L Chloride 103 107 (98-107) mmol/L Carbon Dioxide 18 L 18 L (21-32) mmol/L BUN 95 H 86 H (6-23) mg/dl Creatinine 1.95 H 1.63 H D (0.6-1.4) mg/dl Glucose 202 H 97 (70-99(Fasting)) mg/dl Calcium 8.6 7.8 L (8.6-10.3) mg/dl AST 19 (13-39) U/L ALT 22 (7-52) U/L Alkaline Phosphatase 106 H (34-104) U/L Total Protein 7.7 (6.0-8.3) gm/dl Albumin 4.2 (3.4-5.0) gm/dl Intake and Output 12/19/22 12/20/22 12/20/22 22:59 06:59 14:59 Intake Total 100 / 2250.416 2150.416 / 2250.416 2522.917 / 2522.917 Output Total Balance 100 / 2249.416 2149.416 / 2249.416 2522.917 / 2522.917 Intake: IV 100 / 2250.416 2150.416 / 2250.416 2522.917 / 2522.917 Lactated Ringer's 1,000 ml @ 1000 / 1000 100 mls/hr IV .Q10H [facility] Rx#: [id number] Magnesium Sulfate / D5w 1 gm In 100 / 100 100 ml @ 50 mls/hr IV ONE ONE Rx#:[id number] Nss + 20Meq KCl 20 meq In 1,000 1577.083 / 7018.688 1528.917 / 1422.917 ml @ 125 mls/hr IV .Q8H [facility] Rx #:[id number] Potassium Chloride / Wtr 10 meq 100 / 573.333 473.333 / 573.333 100 / 100 In 100 ml @ 100 mls/hr IV Q1H [facility] Rx#:[id number] Output: Urine/Stool Mix Other: # Unmeasured Voids 1 Weight 81.511 kg Weight Measurement Method Built in [facility] Diagnostic Findings Device interrogation reviewed: appropriate function. Changes made to reduce RV output, monitoring only. Improved battery longevity to 11 months. Telemetry reviewed: Chronic ventricular pacing with underlying afib Cardiac Enzymes 12/19/22 12/19/22 Range/Units 18:39 23:28 AST 19 (13-39) U/L Troponin I High Sens 101.3 H* 100.1 H* (0-20) pg/ml CBC 12/19/22 12/20/22 Range/Units 18:39 06:00 WBC 23.07 H 18.93 H (4.8-10.8) K/ul RBC 6.30 H 5.69 (4.70-6.10) M/uL Hgb 19.6 H 17.9 (14.0-18.0) g/dl Hct 53.6 H 48.1 (42.0-52.0) % Plt Count 527 H 435 H (130-400) K/uL Neut # (Auto) 19.53 H 14.41 H (1.40-6.50) K/uL Lymph # (Auto) 1.79 2.60 (1.2-3.4) K/uL [place]verse # (Auto) 1.41 H 1.50 H (0.11-0.59) K/uL Eos # (Auto) 0.04 0.14 (0-0.50) K/uL Baso # (Auto) 0.11 0.11 (0-0.2) K/uL Comprehensive Metabolic Panel 12/19/22 12/20/22 12/20/22 Range/Units 18:39 06:00 12:52 Sodium 136 137 135 L (136-145) mmol/L Potassium 2.3 L* 2.7 L 2.9 L (3.5-5.1) mmol/L Chloride 103 107 111 H (98-107) mmol/L Carbon Dioxide 18 L 18 L 13 L (21-32) mmol/L BUN 95 H 86 H 76 H (6-23) mg/dl Creatinine 1.95 H 1.63 H D 1.28 D (0.6-1.4) mg/dl Glucose 202 H 97 213 H (70-99(Fasting)) mg/dl Calcium 8.6 7.8 L 7.7 L (8.6-10.3) mg/dl AST 19 (13-39) U/L ALT 22 (7-52) U/L Alkaline Phosphatase 106 H (34-104) U/L Total Protein 7.7 (6.0-8.3) gm/dl Albumin 4.2 (3.4-5.0) gm/dl Impressions Abdomen/Pelvis CT 12/19/22 19:33 CT abd pelvis wo con CLINICAL HISTORY: abd pain TECHNIQUE: Helical axial images of the abdomen and pelvis were obtained. Automated dose lowering techniques and/or adjustment according to patient size were utilized for this exam. This exam was performed without intravenous contrast. CT DOSE: 702.91 mGy.cm COMPARISON: None available at the time of this dictation. FINDINGS: Lower chest: Atelectasis is noted in the right lower lung. Liver: Unremarkable. No focal lesions are seen. Gallbladder and biliary tree: Patient is status post cholecystectomy. No intra- or extrahepatic biliary ductal dilation. Pancreas: Unremarkable, no focal lesions. Spleen: Unremarkable. Adrenals: Unremarkable. Kidneys and ureters: Unremarkable. Bladder: Unremarkable. Reproductive organs: Unremarkable. Bowel: The appendix is normal. Lymph nodes Retroperitoneal: Unremarkable. Pelvic: Unremarkable. Mesenteric: Unremarkable. Peritoneum: Normal. Vessels: Atherosclerotic calcifications are seen. Abdominal wall: Unremarkable. Bones: Degenerative changes in the visualized spine. Extensive sclerotic endplate disease is noted in the lumbar spine. IMPRESSION: 1. No acute intra-abdominal abnormalities to explain abdominal pain. 2. Rounded atelectasis in the left lower lobe. ACT 112: Negative or not required by law. Electronically signed by: Syd Rust M.D. 12/19/2022 8:13 PM Chest X-Ray 12/19/22 20:36 XR chest 1V portable CLINICAL HISTORY: weakness TECHNIQUE: Single frontal radiograph of the chest was obtained. Comparison: Comparison is made to chest radiograph 10/04/2020 FINDINGS: Dual lead pacemaker is seen. Cardiomegaly is noted. Minimal left lower lung airspace opacity is seen. No evidence of pleural effusion or pneumothorax. IMPRESSION: Stable cardiomegaly is seen. Minimal left lower lung airspace opacity likely represents atelectasis with or without superimposed aspiration/pneumonia. ACT 112: Negative or not required by law. Electronically signed by: Syd Rust M.D. 12/19/2022 8:49 PM Soft Tissue Neck CT 12/19/22 21:41 Exam(s): CT NECK Without Contrast EXAM: CT Neck Without Intravenous Contrast CLINICAL HISTORY: Reason for exam: sore throat. TECHNIQUE: Axial computed tomography images of the neck without intravenous contrast. Automated exposure control was utilized for the study. A dose lowering technique was utilized adhering to the principles of ALARA. COMPARISON: No relevant prior studies available. FINDINGS: Oropharynx: Unremarkable. No significant tonsillar enlargement. Hypopharynx: Unremarkable. Larynx: Unremarkable. Normal epiglottis. Trachea: Unremarkable. Retropharyngeal space: Unremarkable. Submandibular/parotid glands: Unremarkable. Glands are normal in size. Thyroid: Unremarkable. No enlarged or calcified nodules. Bones/joints: Degenerative changes of the spine. No acute fracture. Soft tissues: Unremarkable. Vasculature: Atherosclerotic changes of the aorta. Lymph nodes: Unremarkable. No lymphadenopathy. Lung apices: Unremarkable as visualized. IMPRESSION: No acute findings in the neck. Electronically signed by: Len Witt MD 12/19/22 23:18 PM Medications Administered Current Inpatient Medications Acetaminophen (Acetaminophen 325 Mg Tab) 650 mg PO Q4H PRN PRN Reason: Pain or Fever Stop: 01/18/23 23:30 Apixaban (Apixaban 5 Mg Tablet) 5 mg PO BID [facility] Stop: 01/18/23 23:39 Last Admin: 12/20/22 09:09 Dose: 5 mg Atorvastatin Calcium (Atorvastatin 40 Mg Tab) 80 mg PO QAM [facility] Stop: 01/19/23 08:59 Last Admin: 12/20/22 09:10 Dose: 80 mg Bupropion HCl (Bupropion Sr 150 Mg Tabcr) 150 mg PO DAILY [facility] Stop: 01/19/23 08:59 Last Admin: 12/20/22 09:11 Dose: 150 mg Dextrose (Dextrose 50% 50 Ml Syringe) 25 - 50 ml IV UD PRN; Protocol PRN Reason: Hypoglycemia Protocol Stop: 01/18/23 23:30 Fenofibrate (Fenofibrate Nanocrystallized 145 Mg Tablet) 145 mg PO QAM [facility] Stop: 01/19/23 08:59 Last Admin: 12/20/22 09:11 Dose: 145 mg Fluticasone Propionate (Fluticasone Propionate Na Spr 16 Gm Btl) 2 sprays NA DAILY [facility] Stop: 01/19/23 08:59 Last Admin: 12/20/22 09:10 Dose: 2 sprays Glucagon (Glucagon For Inj 1 Mg Vial) 1 mg SQ UD PRN; Protocol PRN Reason: Hypoglycemia Protocol Stop: 01/18/23 23:30 Glucose (Glucose 10 Tab/Tube) 4 - 8 tab PO UD PRN; Protocol PRN Reason: Hypoglycemia Treatment Stop: 01/18/23 23:30 Glucose (Glucose 40% Gel 15 Gm Tube) 15 - 30 gm PO UD PRN; Protocol PRN Reason: Hypoglycemia Protocol Stop: 01/18/23 23:30 Promethazine HCl 6.25 mg/ (Sodium Chloride) 50.25 mls @ 201 mls/hr IV Q6H PRN PRN Reason: Nausea And Vomiting Stop: 01/18/23 23:30 Potassium Chloride/Sodium Chloride (Normal Saline W/20 Meq Kcl) 20 meq in 1,000 mls @ 125 mls/hr IV .Q8H [facility]; Protocol Stop: 01/19/23 07:59 Last Admin: 12/20/22 09:07 Dose: 125 mls/hr Insulin Aspart (Insulin Aspart Per Unit Charge) 0 units SC ACHS [facility] Stop: 01/18/23 23:30 Last Admin: 12/20/22 09:08 Dose: Not Given Insulin Glargine (Lantus Per Unit Charge) 5 units SQ HS [facility] Stop: 01/18/23 23:30 Last Admin: 12/20/22 00:21 Dose: 5 units Metoprolol Succinate (Metoprolol Succ 25mg Ext Rel Tab) 25 mg PO QAM [facility] Stop: 01/19/23 08:59 Last Admin: 12/20/22 09:10 Dose: 25 mg Miscellaneous (Carbohydrates For Hypoglycemia ) 15 - 30 gm PO UD PRN PRN Reason: Hypoglycemia Protocol Stop: 01/18/23 23:30 Potassium Chloride (Potassium Chloride Crtab 20 Meq Tabcr) 40 meq PO TID [facility] Stop: 01/19/23 08:59 Last Admin: 12/20/22 09:08 Dose: 40 meq Tramadol HCl (Tramadol Hcl 50 Mg Tablet) 25 mg PO Q4H PRN PRN Reason: Pain Stop: 01/18/23 23:30
[2022-12-20] MEDS ORDERED: POTASSIUM CHLORIDE CRTAB 20 MEQ TABCR PO SCH (09:00)
[2022-12-20] MEDS ORDERED: METOPROLOL SUCC 25MG EXT REL TAB PO SCH (09:00)
[2022-12-20] MEDS: NSS + 20MEQ KCL 20 MEQ/1,000 ML BAG IV SCH ×2 (09:07→16:51)
[2022-12-20] MEDS: POTASSIUM CHLORIDE CRTAB 20 MEQ TABCR PO SCH ×3 (09:08→21:43)
[2022-12-20] MEDS: FLUTICASONE PROPIONATE NA SPR 16 GM BTL SCH (09:10)
[2022-12-20] MEDS: ATORVASTATIN 40 MG TAB PO SCH (09:10)
[2022-12-20] MEDS: buPROPion SR 150 MG TABCR PO SCH (09:11)
[2022-12-20] MEDS: FENOFIBRATE NANOCRYSTALLIZED 145 MG TABLET PO SCH (09:11)
[2022-12-20 14:44] LABS: BUN Creatinine Ratio 59.4 (10-20); Calcium 7.7 mg/dl (8.6-10.3); Creatinine Clr Calc Pharmacy 49.4 ml/min; Est GFR (African American) 62.2 ml/min; Est GFR (Non-African American) 53.6 ml/min; Phosphorus 1.7 mg/dl (2.5-4.9); Potassium 2.9 mmol/L (3.5-5.1)
[2022-12-20] MEDS ORDERED: POTASSIUM PHOS 3 MMOL/1 ML INFUSION IV ONE (16:02)
--- NOTE | 2022-12-20 16:14 | Hospitalist Progress Note ---
Date of Service December 20, 2022 Assessment & Plan (1) Hypokalemia: Plan: ARF, hypokalemia Multifactorial : diarrheal illness (rule out treatable infectious causes), home medications Back pain secondary to illness rule out UTI Abnormal troponin in the setting of kidney dysfunction, patient without chest pain or shortness of breath complaints chronic systolic heart failure, status post ICD, patient on the dry side hx CAD status post CABG/stent chronic left bundle branch block history PAF, paced rhythm on Eliquis, outpatient device interrogation and Cardiology follow-up visit contemplated this week as per daughter hypertension, BP on the lower side hyperlipidemia on statin Rx COPD, past tobacco abuse, lung status at baseline DM 2 insulin requiring, suboptimal control as of recent hemoglobin A1c of 7.8 last August 2022 PCU Replace electrolytes Baseline UA monitor creatinine response to gentle IV hydration Hold home diuretics, Entresto until creatinine back to baseline Stool CS, C. difficile Follow troponin, TTE for progression Inpatient ICD interrogation and cardiology follow-up visit as per daughter request Basal bolus insulin adjusted for decreased kidney function, ISS BG goal 110-140, carb count coverage, carb count coverage DVT prophylaxis with Eliquis Full code Patient daughter requesting updates from providers. Nicol Stacia, contact #[phone]. Text document was generated using [employer] voice recognition software. It may contain grammatical or spelling errors. Kindly contact undersigned for clarification of any documentation item in question. (2) Gastroenteritis due to norovirus: (3) Enterotoxigenic Escherichia coli infection: (4) Elevated troponin: Plan 77-year-old male presented to ED with weakness/lethargy after 2 weeks of diarrhea Infectious diarrhea due to norovirus and ETEC-continue conservative management. IVF. Leukocytosis- due to above. Improving. No indication for antibiotics for norovirus and ETEC. Hypokalemia due to diarrhea-being repleted aggressively. Recheck in a.m. Cut down on potassium supplementation once corrects and diarrhea improves. Hypophosphatemia-replace, recheck in a.m. MIHIR-prerenal due to volume depletion. Improved with fluid resuscitation. Cr 1.9->1.6->1.28. Baseline creatinine of 0.9 Diabetes mellitus type 2-A1c 7.7. On Lantus, sliding scale insulin. Elevated troponin-likely demand ischemia in setting of infectious diarrhea. No chest pain. No indication for further trending at this point. Metabolic acidosis-due to bicarb loss with diarrhea. Monitor. Consider bicarb supplementation if continues to worsen. Ischemic cardiomyopathy, biventricular ICD in place-holding home Entresto and torsemide in setting of MIHIR volume depletion due to diarrhea. Resume as indicated. -Seen by cardiology. Metoprolol increased to 25 twice daily to aid with biventricular pacing. -Appropriate function of device, battery longevity of 11 months, approximately 80% biventricular pacing Disposition-pending symptomatic improvement of diarrhea DVT prophylaxis-Eliquis Admission and Anticipated Discharge Date Admission Date: December 19, 2022 Subjective Patient was seen and examined at bedside. Still having diarrhea but feeling better. No fever, chills, nausea or abdominal pain. Tolerating clears without issues and would like to advance diet. Review of Systems Review of Systems: All systems reviewed & are unremarkable except as noted in Subjective Physical Exam Physical Exam: General: Lying comfortably in bed, not in distress, on room air HEENT: EOMI, CINDA, MMM Chest: Clear breath sounds bilaterally, no wheezes or crackles CVS: Regular rate and rhythm, normal heart sounds, no murmur Abdomen: Soft, non tender, not distended, normal bowel sounds Neuro: Awake, alert, oriented, conversing well, non focal Extremities: No cyanosis, clubbing or edema Results & Data Results & Data Vital Signs (Past 12 Hours) Vital Signs Temp Pulse Pulse Resp BP BP Pulse Ox 12/20/22 15:54 36.5 C 77 19 130/79 95 12/20/22 10:58 36.6 C 70 17 131/75 95 12/20/22 09:15 93 H 143/79 H 12/20/22 07:09 36.5 C 85 18 92/47 L 97 12/20/22 04:12 87 O2 Del Method 12/20/22 15:54 Room Air 12/20/22 10:58 Room Air 12/20/22 09:15 12/20/22 07:09 Room Air 12/20/22 04:12 Laboratory Results Short CBC 12/19/22 12/20/22 Range/Units 18:39 06:00 WBC 23.07 H 18.93 H (4.8-10.8) K/ul Hgb 19.6 H 17.9 (14.0-18.0) g/dl Hct 53.6 H 48.1 (42.0-52.0) % Plt Count 527 H 435 H (130-400) K/uL BMP 12/19/22 12/20/22 12/20/22 18:39 06:00 12:52 Sodium 136 137 135 L Potassium 2.3 L* 2.7 L 2.9 L Chloride 103 107 111 H Carbon Dioxide 18 L 18 L 13 L BUN 95 H 86 H 76 H Creatinine 1.95 H 1.63 H D 1.28 D Glucose 202 H 97 213 H Calcium 8.6 7.8 L 7.7 L Liver Function 12/19/22 Range/Units 18:39 Total Bilirubin 0.9 (0.2-1.0) mg/dl AST 19 (13-39) U/L ALT 22 (7-52) U/L Alkaline Phosphatase 106 H (34-104) U/L Albumin 4.2 (3.4-5.0) gm/dl Urine 12/20/22 Range/Units 04:30 Urine Color [place]ove Urine Appearance Clear (Clear) Urine pH 6.0 (4.5-7.5) Ur Specific [place] 1.020 (1.000-1.030) Urine Protein 1+ H (Negative) Urine Glucose (UA) Negative (Negative) Medications Administered Current Inpatient Medications Acetaminophen (Acetaminophen 325 Mg Tab) 650 mg PO Q4H PRN PRN Reason: Pain or Fever Stop: 01/18/23 23:30 Apixaban (Apixaban 5 Mg Tablet) 5 mg PO BID [facility] Stop: 01/18/23 23:39 Last Admin: 12/20/22 09:09 Dose: 5 mg Atorvastatin Calcium (Atorvastatin 40 Mg Tab) 80 mg PO QAM [facility] Stop: 01/19/23 08:59 Last Admin: 12/20/22 09:10 Dose: 80 mg Bupropion HCl (Bupropion Sr 150 Mg Tabcr) 150 mg PO DAILY [facility] Stop: 01/19/23 08:59 Last Admin: 12/20/22 09:11 Dose: 150 mg Dextrose (Dextrose 50% 50 Ml Syringe) 25 - 50 ml IV UD PRN; Protocol PRN Reason: Hypoglycemia Protocol Stop: 01/18/23 23:30 Fenofibrate (Fenofibrate Nanocrystallized 145 Mg Tablet) 145 mg PO QAM [facility] Stop: 01/19/23 08:59 Last Admin: 12/20/22 09:11 Dose: 145 mg Fluticasone Propionate (Fluticasone Propionate Na Spr 16 Gm Btl) 2 sprays NA DAILY [facility] Stop: 01/19/23 08:59 Last Admin: 12/20/22 09:10 Dose: 2 sprays Glucagon (Glucagon For Inj 1 Mg Vial) 1 mg SQ UD PRN; Protocol PRN Reason: Hypoglycemia Protocol Stop: 01/18/23 23:30 Glucose (Glucose 10 Tab/Tube) 4 - 8 tab PO UD PRN; Protocol PRN Reason: Hypoglycemia Treatment Stop: 01/18/23 23:30 Glucose (Glucose 40% Gel 15 Gm Tube) 15 - 30 gm PO UD PRN; Protocol PRN Reason: Hypoglycemia Protocol Stop: 01/18/23 23:30 Promethazine HCl 6.25 mg/ (Sodium Chloride) 50.25 mls @ 201 mls/hr IV Q6H PRN PRN Reason: Nausea And Vomiting Stop: 01/18/23 23:30 Potassium Chloride/Sodium Chloride (Normal Saline W/20 Meq Kcl) 20 meq in 1,000 mls @ 125 mls/hr IV .Q8H [facility]; Protocol Stop: 01/19/23 07:59 Last Admin: 12/20/22 09:07 Dose: 125 mls/hr Insulin Aspart (Insulin Aspart Per Unit Charge) 0 units SC ACHS [facility] Stop: 01/18/23 23:30 Last Admin: 12/20/22 12:27 Dose: 4 units Insulin Glargine (Lantus Per Unit Charge) 5 units SQ HS [facility] Stop: 01/18/23 23:30 Last Admin: 12/20/22 00:21 Dose: 5 units Metoprolol Succinate (Metoprolol Succ 25mg Ext Rel Tab) 25 mg PO BID [facility] Stop: 01/19/23 20:59 Miscellaneous (Carbohydrates For Hypoglycemia ) 15 - 30 gm PO UD PRN PRN Reason: Hypoglycemia Protocol Stop: 01/18/23 23:30 Potassium Chloride (Potassium Chloride Crtab 20 Meq Tabcr) 40 meq PO TID [facility] Stop: 01/19/23 08:59 Last Admin: 12/20/22 14:17 Dose: 40 meq Tramadol HCl (Tramadol Hcl 50 Mg Tablet) 25 mg PO Q4H PRN PRN Reason: Pain Stop: 01/18/23 23:30
[2022-12-20] MEDS ORDERED: POTASSIUM PHOSPHATE 24 MMOL in SODIUM CHLORIDE 0.9% 500 ML IV ONE (16:30)
[2022-12-20] MEDS: METOPROLOL SUCC 25MG EXT REL TAB PO SCH (21:45)
[2022-12-21] MEDS: NSS + 20MEQ KCL 20 MEQ/1,000 ML BAG IV SCH ×2 (01:20→08:26)
--- NOTE | 2022-12-21 06:15 | Electrocardiogram Report ---
Test Reason : Blood Pressure : / mmHG Vent. Rate : 089 BPM Atrial Rate : 089 BPM P-R Int : 000 ms QRS Dur : 200 ms QT Int : 468 ms P-R-T Axes : 000 234 178 degrees QTc Int : 569 ms Poor data quality, interpretation may be adversely affected Ventricular-paced rhythm Abnormal ECG When compared with ECG of 04-OCT-2020 18:31, Vent. rate has increased BY 27 BPM Confirmed by Andrew Cruz ([id number]) on 12/21/2022 6:15:46 AM Referred By: REFERRED SELF Confirmed By:Andrew Cruz
[2022-12-21 06:26] LABS: Hematocrit (blood only) 41.5 % (42.0-52.0); Hemoglobin 15.2 g/dl (14.0-18.0); Mean Corpuscular Hemoglobin 31.6 pg (25.0-34.0); Mean Corpuscular Hgb Conc 36.6 g/dL (32.0-36.0); Mean Corpuscular Volume 86.3 fL (80.0-100.0); Mean Platelet Volume 9.8 fL (9.4-12.4); Platelet Count 350 K/uL (130-400); RDW Coefficient of Variation 13.7 % (11.5-14.5); RDW Standard Deviation 43.4 fL (36.4-46.3); Red Blood Count 4.81 M/uL (4.70-6.10); White Blood Count 19.67 K/ul (4.8-10.8)
[2022-12-21 06:34] LABS: Calcium 7.4 mg/dl (8.6-10.3); Est GFR (Non-African American) 82.9 ml/min; Magnesium 1.8 mg/dl (1.7-2.4); Phosphorus 1.6 mg/dl (2.5-4.9); Potassium 3.7 mmol/L (3.5-5.1)
--- NOTE | 2022-12-21 08:10 | Hospitalist Progress Note ---
Date of Service December 21, 2022 Assessment & Plan (1) Hypokalemia: (2) Gastroenteritis due to norovirus: (3) Enterotoxigenic Escherichia coli infection: (4) Elevated troponin: Plan 77 yo M presented to ED with weakness/lethargy after 2 weeks of diarrhea. Infectious diarrhea due to norovirus and ETEC-continue conservative management. IVF. May stop IVF now. Monitor fluid status. Leukocytosis- due to above. Diarrhea improving. No indication for antibiotics for norovirus and ETEC at this time. Hypokalemia due to diarrhea-being repleted aggressively. Recheck in a.m. Cut down on potassium supplementation once corrects and diarrhea improves. Hypophosphatemia-replace, recheck in a.m. MIHIR-prerenal due to volume depletion. Improved with fluid resuscitation. Cr 1.9->1.6->1.28 -> 0.9 Baseline creatinine of 0.9 Diabetes mellitus type 2- A1c 7.7. On Lantus, sliding scale insulin. Elevated troponin-likely demand ischemia in setting of infectious diarrhea. No chest pain. No indication for further trending at this point. Metabolic acidosis-due to bicarb loss with diarrhea. Monitor. Consider bicarb supplementation if continues to worsen. CAD s/p CABG, stent. Chronic LBBB. chronic systolic heart failure, status post ICD Ischemic cardiomyopathy, biventricular ICD in place- holding home Entresto and torsemide in setting of MIHIR volume depletion due to diarrhea. Resume as indicated. -Seen by cardiology. Metoprolol increased to 25 twice daily to aid with biventricular pacing. Entresto resumed. -Appropriate function of device, battery longevity of 11 months, approximately 80% biventricular pacing History PAF, paced rhythm on Eliquis COPD, past tobacco abuse, lung status at baseline Disposition-pending symptomatic improvement of diarrhea DVT prophylaxis-Eliquis Full code Patient daughter - Ms. Nicol Palomo, contact #[phone]. Admission and Anticipated Discharge Date Admission Date: December 19, 2022 Subjective Patient seen in follow up of diarrhea. He is feeling much better. No fever, chills, nausea or abdominal pain. Still continues to have watery diarrhea however much less frequently. Review of Systems Review of Systems: All systems reviewed & are unremarkable except as noted in Subjective Physical Exam Physical Exam: General: Lying comfortably in bed, not in distress, on room air HEENT: EOMI, CINDA, MMM Chest: minimal rhonchi CVS: Regular rate and rhythm, normal heart sounds, no murmur Abdomen: Soft, non tender, not distended, normal bowel sounds Neuro: Awake, alert, oriented, conversing well, speech fluent, moves extremities Extremities: no edema, moves extremities Results & Data Results & Data Vital Signs (Past 12 Hours) Vital Signs Temp Pulse Pulse Resp BP BP Pulse Ox 12/21/22 07:43 36.6 C 60 19 129/71 94 12/21/22 03:30 36.4 C L 65 20 114/58 L 97 12/20/22 23:00 73 12/20/22 23:31 12/20/22 22:32 36.3 C L 71 20 122/77 99 Pulse Ox O2 Del Method O2 Del Method 12/21/22 07:43 Room Air 12/21/22 03:30 Room Air 12/20/22 23:00 12/20/22 23:31 99 Room Air 12/20/22 22:32 Room Air Laboratory Results 12/21/22 12/21/22 12/21/22 Range/Units 07:46 05:58 05:58 WBC 19.67 H (4.8-10.8) K/ul RBC 4.81 (4.70-6.10) M/uL Hgb 15.2 (14.0-18.0) g/dl Hct 41.5 L (42.0-52.0) % MCV 86.3 (80.0-100.0) fL MCH 31.6 (25.0-34.0) pg MCHC 36.6 H (32.0-36.0) g/dL RDW Std Deviation 43.4 (36.4-46.3) fL RDW Coeff of Shellie 13.7 (11.5-14.5) % Plt Count 350 (130-400) K/uL MPV 9.8 (9.4-12.4) fL Sodium 141 (136-145) mmol/L Potassium 3.7 D (3.5-5.1) mmol/L Chloride 120 H (98-107) mmol/L Carbon Dioxide 14 L (21-32) mmol/L Anion Gap 7 (3-11) BUN 44 H D (6-23) mg/dl Creatinine 0.88 D (0.6-1.4) mg/dl Est Cr Clr Drug Dosing 72.0 ml/min Est GFR ( Amer) 96.0 ml/min Est GFR (Non-Af Amer) 82.9 ml/min BUN/Creatinine Ratio 50.0 H (10-20) Glucose 179 H (70-99(Fasting)) mg/dl POC Glucose 148 H (70-99) mg/dl Calcium 7.4 L (8.6-10.3) mg/dl Phosphorus 1.6 L (2.5-4.9) mg/dl Magnesium 1.8 (1.7-2.4) mg/dl 12/20/22 12/20/22 12/20/22 Range/Units 20:13 16:46 12:52 WBC (4.8-10.8) K/ul RBC (4.70-6.10) M/uL Hgb (14.0-18.0) g/dl Hct (42.0-52.0) % MCV (80.0-100.0) fL MCH (25.0-34.0) pg MCHC (32.0-36.0) g/dL RDW Std Deviation (36.4-46.3) fL RDW Coeff of Shellie (11.5-14.5) % Plt Count (130-400) K/uL MPV (9.4-12.4) fL Sodium 135 L (136-145) mmol/L Potassium 2.9 L (3.5-5.1) mmol/L Chloride 111 H (98-107) mmol/L Carbon Dioxide 13 L (21-32) mmol/L Anion Gap 11 (3-11) BUN 76 H (6-23) mg/dl Creatinine 1.28 D (0.6-1.4) mg/dl Est Cr Clr Drug Dosing 49.4 ml/min Est GFR ( Amer) 62.2 ml/min Est GFR (Non-Af Amer) 53.6 ml/min BUN/Creatinine Ratio 59.4 H (10-20) Glucose 213 H (70-99(Fasting)) mg/dl POC Glucose 137 H 160 H (70-99) mg/dl Calcium 7.7 L (8.6-10.3) mg/dl Phosphorus 1.7 L (2.5-4.9) mg/dl Magnesium 2.0 (1.7-2.4) mg/dl 12/20/22 12/20/22 Range/Units 12:02 08:03 WBC (4.8-10.8) K/ul RBC (4.70-6.10) M/uL Hgb (14.0-18.0) g/dl Hct (42.0-52.0) % MCV (80.0-100.0) fL MCH (25.0-34.0) pg MCHC (32.0-36.0) g/dL RDW Std Deviation (36.4-46.3) fL RDW Coeff of Shellie (11.5-14.5) % Plt Count (130-400) K/uL MPV (9.4-12.4) fL Sodium (136-145) mmol/L Potassium (3.5-5.1) mmol/L Chloride (98-107) mmol/L Carbon Dioxide (21-32) mmol/L Anion Gap (3-11) BUN (6-23) mg/dl Creatinine (0.6-1.4) mg/dl Est Cr Clr Drug Dosing ml/min Est GFR ( Amer) ml/min Est GFR (Non-Af Amer) ml/min BUN/Creatinine Ratio (10-20) Glucose (70-99(Fasting)) mg/dl POC Glucose 188 H 115 H (70-99) mg/dl Calcium (8.6-10.3) mg/dl Phosphorus (2.5-4.9) mg/dl Magnesium (1.7-2.4) mg/dl Medications Administered Current Inpatient Medications Acetaminophen (Acetaminophen 325 Mg Tab) 650 mg PO Q4H PRN PRN Reason: Pain or Fever Stop: 01/18/23 23:30 Apixaban (Apixaban 5 Mg Tablet) 5 mg PO BID [facility] Stop: 01/18/23 23:39 Last Admin: 12/20/22 21:43 Dose: 5 mg Atorvastatin Calcium (Atorvastatin 40 Mg Tab) 80 mg PO QAM [facility] Stop: 01/19/23 08:59 Last Admin: 12/20/22 09:10 Dose: 80 mg Bupropion HCl (Bupropion Sr 150 Mg Tabcr) 150 mg PO DAILY [facility] Stop: 01/19/23 08:59 Last Admin: 12/20/22 09:11 Dose: 150 mg Dextrose (Dextrose 50% 50 Ml Syringe) 25 - 50 ml IV UD PRN; Protocol PRN Reason: Hypoglycemia Protocol Stop: 01/18/23 23:30 Fenofibrate (Fenofibrate Nanocrystallized 145 Mg Tablet) 145 mg PO QAM [facility] Stop: 01/19/23 08:59 Last Admin: 12/20/22 09:11 Dose: 145 mg Fluticasone Propionate (Fluticasone Propionate Na Spr 16 Gm Btl) 2 sprays NA DAILY [facility] Stop: 01/19/23 08:59 Last Admin: 12/20/22 09:10 Dose: 2 sprays Glucagon (Glucagon For Inj 1 Mg Vial) 1 mg SQ UD PRN; Protocol PRN Reason: Hypoglycemia Protocol Stop: 01/18/23 23:30 Glucose (Glucose 10 Tab/Tube) 4 - 8 tab PO UD PRN; Protocol PRN Reason: Hypoglycemia Treatment Stop: 01/18/23 23:30 Glucose (Glucose 40% Gel 15 Gm Tube) 15 - 30 gm PO UD PRN; Protocol PRN Reason: Hypoglycemia Protocol Stop: 01/18/23 23:30 Promethazine HCl 6.25 mg/ (Sodium Chloride) 50.25 mls @ 201 mls/hr IV Q6H PRN PRN Reason: Nausea And Vomiting Stop: 01/18/23 23:30 Potassium Chloride/Sodium Chloride (Normal Saline W/20 Meq Kcl) 20 meq in 1,000 mls @ 80 mls/hr IV .[id number] [facility]; Protocol Stop: 01/19/23 07:59 Last Admin: 12/21/22 01:20 Dose: 125 mls/hr Insulin Aspart (Insulin Aspart Per Unit Charge) 0 units SC ACHS [facility] Stop: 01/18/23 23:30 Last Admin: 12/20/22 20:50 Dose: Not Given Insulin Glargine (Lantus Per Unit Charge) 5 units SQ HS [facility] Stop: 01/18/23 23:30 Last Admin: 12/20/22 21:42 Dose: 5 units Metoprolol Succinate (Metoprolol Succ 25mg Ext Rel Tab) 25 mg PO BID [facility] Stop: 01/19/23 20:59 Last Admin: 12/20/22 21:45 Dose: 25 mg Miscellaneous (Carbohydrates For Hypoglycemia ) 15 - 30 gm PO UD PRN PRN Reason: Hypoglycemia Protocol Stop: 01/18/23 23:30 Potassium Chloride (Potassium Chloride Crtab 20 Meq Tabcr) 40 meq PO TID [facility] Stop: 01/19/23 08:59 Last Admin: 12/20/22 21:43 Dose: 40 meq Potassium Phosphate (Pot Phosphate Monobasic W/ Sod Tab) 1 tab PO QID [facility] Stop: 01/20/23 08:59 Tramadol HCl (Tramadol Hcl 50 Mg Tablet) 25 mg PO Q4H PRN PRN Reason: Pain Stop: 01/18/23 23:30
[2022-12-21] MEDS: INSULIN ASPART PER UNIT CHARGE SC SCH ×4 (08:26→21:19)
[2022-12-21] MEDS: METOPROLOL SUCC 25MG EXT REL TAB PO SCH ×2 (08:27→20:20)
[2022-12-21] MEDS: APIXABAN 5 MG TABLET PO SCH ×2 (08:27→20:20)
[2022-12-21] MEDS: FLUTICASONE PROPIONATE NA SPR 16 GM BTL SCH (08:27)
--- NOTE | 2022-12-21 09:25 | Cardiology Progress Note ---
Date of Service December 21, 2022 Assessment & Plan (1) Hypokalemia: (2) MIHIR (acute kidney injury): (3) Gastroenteritis due to norovirus: (4) Ischemic cardiomyopathy: (5) Biventricular ICD (implantable cardioverter-defibrillator) in place: Plan Patient admitted for weakness/lethargy after 2 weeks of diarrhea, diagnosed with gastroenteritis and stool possible for entero virus and norovirus. Supportive care recommended. Patient significantly dehydrated with hypokalemia and MIHIR noted on labs on admission. Entresto, torsemide on hold. Potassium and magnesium supplemented. Labs improving. Potassium low end of normal. Renal function improved to baseline. Continue to hold torsemide He is receiving significant IV fluid infusion with potassium supplement. Need to monitor for CHF symptoms. Resume Entresto 24-26 BID Continue metoprolol to 25 mg BID (he was to be taking this dose as outpatient) to aid with BIV pacing Appropriate function of device. battery longevity of 11 months. Approx 80% BIV pacing Case discussed with Dr. Arteaga. Will follow. Admission and Anticipated Discharge Date Admission Date: December 19, 2022 Supervising Physician Co-Signing Physician Notes Supervising Physician Attestation: I have personally performed a history and physical examination on the patient. I agree with the physician photo studio assistant's findings and plan as documented with the following additions. Subjective: Patient feeling subjectively improved from a diarrhea standpoint. Denies any chest pain, shortness of breath or palpitations. Remains on IV fluids -normal saline with potassium chloride and 80 mL an hour, potassium chloride 40 mill equivalents p.o. 3 times daily, potassium phosphate 1 tablet 4 times daily. Exam: Cardiovascular regular rhythm, no murmur, no edema Data: Potassium 3.7 improved compared to 2.9 on 12/20/2022 Creatinine peaked at 1.63, down to 0.8 mg/dL today Assessment and Plan: Diagnosis as noted above Continue metoprolol. Add back Entresto. Diuretics still on hold. Monitor for fluid overload given IV fluid intake. Monitor electrolytes with labs tomorrow DVT prophylaxis: Patient is on full anticoagulation dose Wood Arteaga, DO Subjective Patient resting in bed comfortably. Ongoing diarrhea noted. Abdominal pain improved. Cough improved. No chest pain or dyspnea. Potassium levels improving. Renal function improving. Review of Systems Review of Systems: All systems reviewed & are unremarkable except as noted in HPI & below Physical Exam Constitutional: WD/WN, vitals as above well developed and + obese; no acute distress Neck: trachea midline, no thyromegaly + thick neck Respiratory: + cough; no labored breathing Auscultation: + rhonchi Cardiovascular: Rate/Rhythm: regular rate and regular rhythm Heart Sounds: no murmur Vessels: no JVD Extremities: no edema Gastrointestinal (Abdomen): normal bowel sounds, soft, nontender, no hepatosplenomegaly Neurologic: PERRL, EOMI, accommodation nl, no face palsy, no dysarthria Psychiatric: A+Ox3, euthymic affect Results & Data Vital Signs (Past 12 Hours) Vital Signs Temp Pulse Pulse Resp BP BP Pulse Ox 12/21/22 07:43 36.6 C 60 19 129/71 94 12/21/22 03:30 36.4 C L 65 20 114/58 L 97 12/20/22 23:00 73 12/20/22 23:31 12/20/22 22:32 36.3 C L 71 20 122/77 99 Pulse Ox O2 Del Method O2 Del Method 12/21/22 07:43 Room Air 12/21/22 03:30 Room Air 12/20/22 23:00 12/20/22 23:31 99 Room Air 12/20/22 22:32 Room Air Laboratory Results CBC 12/21/22 Range/Units 05:58 WBC 19.67 H (4.8-10.8) K/ul RBC 4.81 (4.70-6.10) M/uL Hgb 15.2 (14.0-18.0) g/dl Hct 41.5 L (42.0-52.0) % Plt Count 350 (130-400) K/uL Comprehensive Metabolic Panel 12/20/22 12/21/22 Range/Units 12:52 05:58 Sodium 135 L 141 (136-145) mmol/L Potassium 2.9 L 3.7 D (3.5-5.1) mmol/L Chloride 111 H 120 H (98-107) mmol/L Carbon Dioxide 13 L 14 L (21-32) mmol/L BUN 76 H 44 H D (6-23) mg/dl Creatinine 1.28 D 0.88 D (0.6-1.4) mg/dl Glucose 213 H 179 H (70-99(Fasting)) mg/dl Calcium 7.7 L 7.4 L (8.6-10.3) mg/dl Intake and Output 12/20/22 12/21/22 12/21/22 22:59 06:59 14:59 Intake Total 2269.667 / 6352.584 1100 / 6352.584 887.5 / 887.5 Output Total 203 / 207 2 / 207 Balance 2066.667 / 6145.584 1098 / 6145.584 887.5 / 887.5 Intake: IV 1474.667 / 5097.584 1000 / 5097.584 887.5 / 887.5 Nss + 20Meq KCl 20 meq In 1,000 966.667 / 7128.303 8347 / 1966.667 887.5 / 887.5 ml @ 125 mls/hr IV .Q8H [facility] Rx #:[id number] Potassium Phosphate 24 mmol In 508 / 508 Sodium Chloride 0.9% 500 ml @ 88 mls/hr IV TODAY@1630 ONE Rx# :[id number] Oral 795 / 1255 100 / 1255 Output: Urine 200 / 200 # Bowel Movements 3 / 7 2 / 7 Other: # Unmeasured Voids 2 Weight 82 kg Weight Measurement Method Standing Scale Diagnostic Findings Telemetry reviewed: AV pacing. No concerning arrhythmias. Medications Administered Current Inpatient Medications Acetaminophen (Acetaminophen 325 Mg Tab) 650 mg PO Q4H PRN PRN Reason: Pain or Fever Stop: 01/18/23 23:30 Apixaban (Apixaban 5 Mg Tablet) 5 mg PO BID [facility] Stop: 01/18/23 23:39 Last Admin: 12/21/22 08:27 Dose: 5 mg Atorvastatin Calcium (Atorvastatin 40 Mg Tab) 80 mg PO QAM [facility] Stop: 01/19/23 08:59 Last Admin: 12/20/22 09:10 Dose: 80 mg Bupropion HCl (Bupropion Sr 150 Mg Tabcr) 150 mg PO DAILY [facility] Stop: 01/19/23 08:59 Last Admin: 12/20/22 09:11 Dose: 150 mg Dextrose (Dextrose 50% 50 Ml Syringe) 25 - 50 ml IV UD PRN; Protocol PRN Reason: Hypoglycemia Protocol Stop: 01/18/23 23:30 Fenofibrate (Fenofibrate Nanocrystallized 145 Mg Tablet) 145 mg PO QAM [facility] Stop: 01/19/23 08:59 Last Admin: 12/20/22 09:11 Dose: 145 mg Fluticasone Propionate (Fluticasone Propionate Na Spr 16 Gm Btl) 2 sprays NA DAILY [facility] Stop: 01/19/23 08:59 Last Admin: 12/21/22 08:27 Dose: 2 sprays Glucagon (Glucagon For Inj 1 Mg Vial) 1 mg SQ UD PRN; Protocol PRN Reason: Hypoglycemia Protocol Stop: 01/18/23 23:30 Glucose (Glucose 10 Tab/Tube) 4 - 8 tab PO UD PRN; Protocol PRN Reason: Hypoglycemia Treatment Stop: 01/18/23 23:30 Glucose (Glucose 40% Gel 15 Gm Tube) 15 - 30 gm PO UD PRN; Protocol PRN Reason: Hypoglycemia Protocol Stop: 01/18/23 23:30 Promethazine HCl 6.25 mg/ (Sodium Chloride) 50.25 mls @ 201 mls/hr IV Q6H PRN PRN Reason: Nausea And Vomiting Stop: 01/18/23 23:30 Potassium Chloride/Sodium Chloride (Normal Saline W/20 Meq Kcl) 20 meq in 1,000 mls @ 80 mls/hr IV .[id number] [facility]; Protocol Stop: 01/19/23 07:59 Last Admin: 12/21/22 08:26 Dose: 125 mls/hr Insulin Aspart (Insulin Aspart Per Unit Charge) 0 units SC ACHS [facility] Stop: 01/18/23 23:30 Last Admin: 12/21/22 08:26 Dose: 6 units Insulin Glargine (Lantus Per Unit Charge) 5 units SQ HS [facility] Stop: 01/18/23 23:30 Last Admin: 12/20/22 21:42 Dose: 5 units Metoprolol Succinate (Metoprolol Succ 25mg Ext Rel Tab) 25 mg PO BID [facility] Stop: 01/19/23 20:59 Last Admin: 12/21/22 08:27 Dose: 25 mg Miscellaneous (Carbohydrates For Hypoglycemia ) 15 - 30 gm PO UD PRN PRN Reason: Hypoglycemia Protocol Stop: 01/18/23 23:30 Potassium Chloride (Potassium Chloride Crtab 20 Meq Tabcr) 40 meq PO TID [facility] Stop: 01/19/23 08:59 Last Admin: 12/20/22 21:43 Dose: 40 meq Potassium Phosphate (Pot Phosphate Monobasic W/ Sod Tab) 1 tab PO QID [facility] Stop: 01/20/23 08:59 Tramadol HCl (Tramadol Hcl 50 Mg Tablet) 25 mg PO Q4H PRN PRN Reason: Pain Stop: 01/18/23 23:30
[2022-12-21] MEDS: buPROPion SR 150 MG TABCR PO SCH (09:36)
[2022-12-21] MEDS: FENOFIBRATE NANOCRYSTALLIZED 145 MG TABLET PO SCH (09:36)
[2022-12-21] MEDS: POT PHOSPHATE MONOBASIC W/ SOD TAB PO SCH ×4 (09:37→20:20)
[2022-12-21] MEDS: POTASSIUM CHLORIDE CRTAB 20 MEQ TABCR PO SCH ×3 (09:37→20:21)
[2022-12-21] MEDS: ATORVASTATIN 40 MG TAB PO SCH (09:41)
[2022-12-21] MEDS: VALSARTAN/SACUBITRIL 26/24MG TAB PO SCH ×2 (10:24→20:21)
[2022-12-21] MEDS: ADVANCED PROBIOTIC 1250 MG CAPSULE PO SCH (16:42)
[2022-12-21] MEDS: LANTUS PER UNIT CHARGE SQ SCH (21:19)
--- NOTE | 2022-12-22 00:02 | Electrocardiogram Report ---
Test Reason : Blood Pressure : / mmHG Vent. Rate : 083 BPM Atrial Rate : 082 BPM P-R Int : 000 ms QRS Dur : 188 ms QT Int : 462 ms P-R-T Axes : 000 -71 185 degrees QTc Int : 542 ms Suspect unspecified pacemaker failure Ventricular-paced rhythm Abnormal ECG When compared with ECG of 19-DEC-2022 18:36, Vent. rate has decreased BY 6 BPM Confirmed by Andrew Cruz ([id number]) on 12/22/2022 12:01:44 AM Referred By: REFERRED SELF Confirmed By:Andrew Cruz
[2022-12-22 07:38] LABS: Hematocrit (blood only) 41.8 % (42.0-52.0); Hemoglobin 15.4 g/dl (14.0-18.0); Mean Corpuscular Hemoglobin 31.8 pg (25.0-34.0); Mean Corpuscular Hgb Conc 36.8 g/dL (32.0-36.0); Mean Corpuscular Volume 86.2 fL (80.0-100.0); Platelet Count 330 K/uL (130-400); RDW Coefficient of Variation 14.4 % (11.5-14.5); RDW Standard Deviation 45.4 fL (36.4-46.3); Red Blood Count 4.85 M/uL (4.70-6.10); White Blood Count 18.46 K/ul (4.8-10.8)
[2022-12-22 08:16] LABS: BUN Creatinine Ratio 24.1 (10-20); Calcium 7.7 mg/dl (8.6-10.3); Creatinine Clr Calc Pharmacy 80.1 ml/min; Est GFR (African American) 100.4 ml/min; Est GFR (Non-African American) 86.6 ml/min; Magnesium 1.5 mg/dl (1.7-2.4); Phosphorus 1.5 mg/dl (2.5-4.9); Potassium 3.4 mmol/L (3.5-5.1)
[2022-12-22] MEDS: INSULIN ASPART PER UNIT CHARGE SC SCH ×4 (08:54→20:43)
[2022-12-22] MEDS: FENOFIBRATE NANOCRYSTALLIZED 145 MG TABLET PO SCH (08:55)
[2022-12-22] MEDS: POTASSIUM CHLORIDE CRTAB 20 MEQ TABCR PO SCH ×3 (08:55→20:48)
[2022-12-22] MEDS: APIXABAN 5 MG TABLET PO SCH ×2 (08:56→20:48)
[2022-12-22] MEDS ORDERED: POTASSIUM PHOS 3 MMOL/1 ML INFUSION IV STA (08:56)
[2022-12-22] MEDS: ATORVASTATIN 40 MG TAB PO SCH (08:56)
[2022-12-22] MEDS: buPROPion SR 150 MG TABCR PO SCH (08:56)
[2022-12-22] MEDS: POT PHOSPHATE MONOBASIC W/ SOD TAB PO SCH ×4 (08:57→20:48)
[2022-12-22] MEDS: METOPROLOL SUCC 25MG EXT REL TAB PO SCH ×2 (08:57→20:48)
[2022-12-22] MEDS: FLUTICASONE PROPIONATE NA SPR 16 GM BTL SCH (08:57)
[2022-12-22] MEDS: ADVANCED PROBIOTIC 1250 MG CAPSULE PO SCH (08:57)
[2022-12-22] MEDS: VALSARTAN/SACUBITRIL 26/24MG TAB PO SCH ×2 (08:58→20:48)
--- NOTE | 2022-12-22 08:58 | Hospitalist Progress Note ---
Date of Service December 22, 2022 Assessment & Plan (1) Hypokalemia: (2) Gastroenteritis due to norovirus: (3) Enterotoxigenic Escherichia coli infection: (4) Elevated troponin: Plan 77 yo M presented to ED with weakness/lethargy after 2 weeks of diarrhea. Infectious diarrhea due to norovirus and ETEC-continue conservative management. IVF initially, now stopped. Monitor fluid status. Leukocytosis- due to above. Diarrhea improving. No indication for antibiotics for norovirus and ETEC at this time. Hypokalemia due to diarrhea-being repleted aggressively. Recheck in a.m. Cut down on potassium supplementation once corrects and diarrhea improves. Hypophosphatemia-replace, recheck in a.m. MIHIR-prerenal due to volume depletion. Improved with fluid resuscitation. Cr 1.9->1.6->1.28 -> 0.9 Baseline creatinine of 0.9 Diabetes mellitus type 2- A1c 7.7. On Lantus, sliding scale insulin. Elevated troponin-likely demand ischemia in setting of infectious diarrhea. No chest pain. No indication for further trending at this point. Metabolic acidosis-due to bicarb loss with diarrhea. Monitor. Consider bicarb supplementation if continues to worsen. CAD s/p CABG, stent. Chronic LBBB. chronic systolic heart failure, status post ICD Ischemic cardiomyopathy, biventricular ICD in place- holding home Entresto and torsemide in setting of MIHIR volume depletion due to diarrhea. Resume as indicated. -Seen by cardiology. Metoprolol increased to 25 twice daily to aid with biventricular pacing. Entresto resumed. -Appropriate function of device, battery longevity of 11 months, approximately 80% biventricular pacing History PAF, paced rhythm on Eliquis COPD, past tobacco abuse, lung status at baseline Disposition-pending symptomatic improvement of diarrhea DVT prophylaxis-Eliquis Full code Patient daughter - Ms. Nicol Palomo, contact #[phone]. Admission and Anticipated Discharge Date Admission Date: December 19, 2022 Subjective Patient seen in follow up of diarrhea. He is feeling much better. No fever, chills, nausea or abdominal pain. Still continues to have liquid diarrhea however much less frequently, pt also feels it's not as watery anymore. had 2 BMs today. Reports good appetite. Review of Systems Review of Systems: All systems reviewed & are unremarkable except as noted in Subjective Physical Exam Physical Exam: General: WD/WN M sitting up in bed, not in distress, on room air HEENT: EOMI, CINDA, MMM Chest: minimal rhonchi CVS: Regular rate and rhythm, normal heart sounds, no murmur Abdomen: Soft, non tender, not distended, normal bowel sounds Neuro: Awake, alert, oriented, conversing well, speech fluent, moves extremities Extremities: no edema, moves extremities Results & Data Results & Data Vital Signs (Past 12 Hours) Vital Signs Temp Pulse Resp BP BP Pulse Ox O2 Del Method 12/22/22 08:23 36.7 C 59 L 20 106/56 L 97 Room Air 12/22/22 02:38 63 18 104/55 L 96 Room Air 12/21/22 23:11 37.0 C 63 19 93/61 L 80/42 L 96 Room Air Laboratory Results 12/22/22 12/22/22 12/22/22 Range/Units 08:20 07:13 07:13 WBC 18.46 H (4.8-10.8) K/ul RBC 4.85 (4.70-6.10) M/uL Hgb 15.4 (14.0-18.0) g/dl Hct 41.8 L (42.0-52.0) % MCV 86.2 (80.0-100.0) fL MCH 31.8 (25.0-34.0) pg MCHC 36.8 H (32.0-36.0) g/dL RDW Std Deviation 45.4 (36.4-46.3) fL RDW Coeff of Shellie 14.4 (11.5-14.5) % Plt Count 330 (130-400) K/uL MPV 10.0 (9.4-12.4) fL Sodium 142 (136-145) mmol/L Potassium 3.4 L (3.5-5.1) mmol/L Chloride 118 H (98-107) mmol/L Carbon Dioxide 17 L (21-32) mmol/L Anion Gap 7 (3-11) BUN 19 D (6-23) mg/dl Creatinine 0.79 (0.6-1.4) mg/dl Est Cr Clr Drug Dosing 80.1 ml/min Est GFR ( Amer) 100.4 ml/min Est GFR (Non-Af Amer) 86.6 ml/min BUN/Creatinine Ratio 24.1 H (10-20) Glucose 194 H (70-99(Fasting)) mg/dl POC Glucose 199 H (70-99) mg/dl Calcium 7.7 L (8.6-10.3) mg/dl Phosphorus 1.5 L* (2.5-4.9) mg/dl Magnesium 1.5 L (1.7-2.4) mg/dl 12/21/22 12/21/22 12/21/22 Range/Units 20:44 16:02 12:03 WBC (4.8-10.8) K/ul RBC (4.70-6.10) M/uL Hgb (14.0-18.0) g/dl Hct (42.0-52.0) % MCV (80.0-100.0) fL MCH (25.0-34.0) pg MCHC (32.0-36.0) g/dL RDW Std Deviation (36.4-46.3) fL RDW Coeff of Shellie (11.5-14.5) % Plt Count (130-400) K/uL MPV (9.4-12.4) fL Sodium (136-145) mmol/L Potassium (3.5-5.1) mmol/L Chloride (98-107) mmol/L Carbon Dioxide (21-32) mmol/L Anion Gap (3-11) BUN (6-23) mg/dl Creatinine (0.6-1.4) mg/dl Est Cr Clr Drug Dosing ml/min Est GFR ( Amer) ml/min Est GFR (Non-Af Amer) ml/min BUN/Creatinine Ratio (10-20) Glucose (70-99(Fasting)) mg/dl POC Glucose 161 H 128 H 120 H (70-99) mg/dl Calcium (8.6-10.3) mg/dl Phosphorus (2.5-4.9) mg/dl Magnesium (1.7-2.4) mg/dl Medications Administered Current Inpatient Medications Acetaminophen (Acetaminophen 325 Mg Tab) 650 mg PO Q4H PRN PRN Reason: Pain or Fever Stop: 01/18/23 23:30 Apixaban (Apixaban 5 Mg Tablet) 5 mg PO BID [facility] Stop: 01/18/23 23:39 Last Admin: 12/21/22 20:20 Dose: 5 mg Atorvastatin Calcium (Atorvastatin 40 Mg Tab) 80 mg PO QAM [facility] Stop: 01/19/23 08:59 Last Admin: 12/21/22 09:41 Dose: 80 mg Bupropion HCl (Bupropion Sr 150 Mg Tabcr) 150 mg PO DAILY [facility] Stop: 01/19/23 08:59 Last Admin: 12/21/22 09:36 Dose: 150 mg Dextrose (Dextrose 50% 50 Ml Syringe) 25 - 50 ml IV UD PRN; Protocol PRN Reason: Hypoglycemia Protocol Stop: 01/18/23 23:30 Fenofibrate (Fenofibrate Nanocrystallized 145 Mg Tablet) [facility] [place] Stop: 01/19/23 08:59 Last Admin: 12/21/22 09:36 Dose: 145 mg Fluticasone Propionate (Fluticasone Propionate Na Spr 16 Gm Btl) 2 sprays NA DAILY [facility] Stop: 01/19/23 08:59 Last Admin: 12/21/22 08:27 Dose: 2 sprays Glucagon (Glucagon For Inj 1 Mg Vial) 1 mg SQ UD PRN; Protocol PRN Reason: Hypoglycemia Protocol Stop: 01/18/23 23:30 Glucose (Glucose 10 Tab/Tube) 4 - 8 tab PO UD PRN; Protocol PRN Reason: Hypoglycemia Treatment Stop: 01/18/23 23:30 Glucose (Glucose 40% Gel 15 Gm Tube) 15 - 30 gm PO UD PRN; Protocol PRN Reason: Hypoglycemia Protocol Stop: 01/18/23 23:30 Promethazine HCl 6.25 mg/ (Sodium Chloride) 50.25 mls @ 201 mls/hr IV Q6H PRN PRN Reason: Nausea And Vomiting Stop: 01/18/23 23:30 Potassium Chloride/Sodium Chloride (Normal Saline W/20 Meq Kcl) 20 meq in 1,000 mls @ 80 mls/hr IV .[id number] [facility]; Protocol Stop: 01/19/23 07:59 Last Infusion: 12/21/22 15:03 Dose: Infused Insulin Aspart (Insulin Aspart Per Unit Charge) 0 units SC ACHS [facility] Stop: 01/18/23 23:30 Last Admin: 12/22/22 08:54 Dose: 8 units Insulin Glargine (Lantus Per Unit Charge) 5 units SQ HS [facility] Stop: 01/18/23 23:30 Last Admin: 12/21/22 21:19 Dose: 5 units Lactobacillus Acidophilus (Advanced Probiotic 1250 Mg Capsule) 2 cap PO DAILY [facility] Stop: 01/20/23 15:29 Last Admin: 12/21/22 16:42 Dose: 2 cap Metoprolol Succinate (Metoprolol Succ 25mg Ext Rel Tab) 25 mg PO BID [facility] Stop: 01/19/23 20:59 Last Admin: 12/21/22 20:20 Dose: 25 mg Miscellaneous (Carbohydrates For Hypoglycemia ) 15 - 30 gm PO UD PRN PRN Reason: Hypoglycemia Protocol Stop: 01/18/23 23:30 Potassium Chloride (Potassium Chloride Crtab 20 Meq Tabcr) 40 meq PO TID [facility] Stop: 01/19/23 08:59 Last Admin: 12/21/22 20:21 Dose: 40 meq Potassium Phosphate (Pot Phosphate Monobasic W/ Sod Tab) 1 tab PO QID [facility] Stop: 01/20/23 08:59 Last Admin: 12/21/22 20:20 Dose: 1 tab Potassium Phosphate (Potassium Phos 3 Mmol/1 Ml Infusion) 15 mmol IV NOW STA Stop: 12/22/22 08:57 Sacubitril/Valsartan (Valsartan/Sacubitril 26/24mg Tab) 1 tab PO BID [facility] Stop: 01/20/23 09:44 Last Admin: 12/21/22 20:21 Dose: 1 tab Tramadol HCl (Tramadol Hcl 50 Mg Tablet) 25 mg PO Q4H PRN PRN Reason: Pain Stop: 01/18/23 23:30
[2022-12-22] MEDS ORDERED: POTASSIUM PHOSPHATE 15 MMOL in DEXTROSE 5% 250 ML IV ONE (09:15)
--- NOTE | 2022-12-22 09:41 | Cardiology Progress Note ---
Date of Service December 22, 2022 Assessment & Plan (1) Hypokalemia: (2) MIHIR (acute kidney injury): (3) Gastroenteritis due to norovirus: (4) Ischemic cardiomyopathy: (5) Biventricular ICD (implantable cardioverter-defibrillator) in place: Plan Patient admitted for weakness/lethargy after 2 weeks of diarrhea, diagnosed with gastroenteritis and stool possible for entero virus and norovirus. Supportive care recommended. Improving Patient significantly dehydrated with hypokalemia and MIHIR noted on labs on admission. Entresto, torsemide on hold initially Potassium and magnesium supplemented. Labs improving but remains on high dose potassium supplements. Continue to monitor. Renal function improved to baseline. Continue to hold torsemide Entresto resumed. Continue metoprolol to 25 mg BID (he was to be taking this dose as outpatient) to aid with BIV pacing Appropriate function of device. battery longevity of 11 months. Approx 80% BIV pacing He is receiving significant IV fluid infusion with potassium supplement. Need to monitor for CHF symptoms. Currently appears euvolemic. Continue to hold torsemide given hypokalemia. If BP allows, could consider future use of spironolactone as well to aid with hypokalemia. Case discussed with Dr. Arteaga. Will follow. Admission and Anticipated Discharge Date Admission Date: December 19, 2022 Supervising Physician Co-Signing Physician Notes Supervising Physician Attestation: I have personally performed a history and physical examination on the patient. I agree with the physician gift shop assistant's findings and plan as documented with the following additions. Subjective: Patient notes improvement from diarrhea perspective, noted passing solid stool starting yesterday. Potassium little low again today at 3.4. Telemetry reveals sinus rhythm with appropriate ventricular pacing in the 60s without arrhythmia. Exam: Cardiovascular: Regular rhythm no murmurs, no edema Left infraclavicular device pocket clean dry and intact Pulmonary: Lungs clear to auscultation bilaterally Data: Potassium 3.4, CO2 17, phosphorus 105 Assessment and Plan: -Problem list as noted above -Continue electrolyte replacement. -Holding torsemide, but no long-term will need to be placed on his maintenance diuretic DVT prophylaxis: Patient is on chronic full dose anticoagulation with Eliquis 5 mg twice daily Abilio Arteaga, DO Subjective Patient resting in bed comfortably. Able to tolerate full breakfast this eric calderon Abdominal pain improved. Diarrhea improving. No chest pain or SOB. No edema. Entresto resumed yesterday. Had episode of mild hypotension but was reportedly asymptomatic. BP acceptable this morning Review of Systems Review of Systems: All systems reviewed & are unremarkable except as noted in HPI & below Physical Exam Constitutional: WD/WN, vitals as above well developed and + obese; no acute distress Neck: trachea midline, no thyromegaly + thick neck Respiratory: no labored breathing and no cough Auscultation: lungs clear to auscultation bilaterally; no rales and no rhonchi Cardiovascular: Rate/Rhythm: regular rate and regular rhythm Heart Sounds: no murmur Vessels: no JVD Extremities: no edema Gastrointestinal (Abdomen): normal bowel sounds, soft, nontender, no hepatosplenomegaly Neurologic: PERRL, EOMI, accommodation nl, no face palsy, no dysarthria Psychiatric: A+Ox3, euthymic affect Results & Data Vital Signs (Past 12 Hours) Vital Signs Temp Pulse Resp BP BP Pulse Ox O2 Del Method 12/22/22 08:23 36.7 C 59 L 20 106/56 L 97 Room Air 12/22/22 02:38 63 18 104/55 L 96 Room Air 12/21/22 23:11 37.0 C 63 19 93/61 L 80/42 L 96 Room Air Laboratory Results CBC 12/22/22 Range/Units 07:13 WBC 18.46 H (4.8-10.8) K/ul RBC 4.85 (4.70-6.10) M/uL Hgb 15.4 (14.0-18.0) g/dl Hct 41.8 L (42.0-52.0) % Plt Count 330 (130-400) K/uL Comprehensive Metabolic Panel 12/22/22 Range/Units 07:13 Sodium 142 (136-145) mmol/L Potassium 3.4 L (3.5-5.1) mmol/L Chloride 118 H (98-107) mmol/L Carbon Dioxide 17 L (21-32) mmol/L BUN 19 D (6-23) mg/dl Creatinine 0.79 (0.6-1.4) mg/dl Glucose 194 H (70-99(Fasting)) mg/dl Calcium 7.7 L (8.6-10.3) mg/dl Intake and Output 12/21/22 12/22/22 12/22/22 22:59 06:59 14:59 Intake Total 1600 / 2842.5 355 / 2842.5 Output Total 154 / 932 277 / 932 Balance 1446 / 1910.5 78 / 1910.5 Intake: IV 1000 / 1887.5 Nss + 20Meq KCl 20 meq In 1,000 1000 / 1887.5 ml @ 80 mls/hr IV .[id number] [facility] Rx#:[id number] Oral 600 / 955 355 / 955 Output: Urine 152 / 928 276 / 928 # Bowel Movements Other: Weight 81.7 kg Diagnostic Findings Telemetry reviewed: Chronic ventricular pacing. no arrhythmias Medications Administered Current Inpatient Medications Acetaminophen (Acetaminophen 325 Mg Tab) 650 mg PO Q4H PRN PRN Reason: Pain or Fever Stop: 01/18/23 23:30 Apixaban (Apixaban 5 Mg Tablet) 5 mg PO BID [facility] Stop: 01/18/23 23:39 Last Admin: 12/22/22 08:56 Dose: 5 mg Atorvastatin Calcium (Atorvastatin 40 Mg Tab) 80 mg PO QAM [facility] Stop: 01/19/23 08:59 Last Admin: 12/22/22 08:56 Dose: 80 mg Bupropion HCl (Bupropion Sr 150 Mg Tabcr) 150 mg PO DAILY [facility] Stop: 01/19/23 08:59 Last Admin: 12/22/22 08:56 Dose: 150 mg Dextrose (Dextrose 50% 50 Ml Syringe) 25 - 50 ml IV UD PRN; Protocol PRN Reason: Hypoglycemia Protocol Stop: 01/18/23 23:30 Fenofibrate (Fenofibrate Nanocrystallized 145 Mg Tablet) 145 mg PO QAM [facility] Stop: 01/19/23 08:59 Last Admin: 12/22/22 08:55 Dose: 145 mg Fluticasone Propionate (Fluticasone Propionate Na Spr 16 Gm Btl) 2 sprays NA DAILY [facility] Stop: 01/19/23 08:59 Last Admin: 12/22/22 08:57 Dose: Not Given Glucagon (Glucagon For Inj 1 Mg Vial) 1 mg SQ UD PRN; Protocol PRN Reason: Hypoglycemia Protocol Stop: 01/18/23 23:30 Glucose (Glucose 10 Tab/Tube) 4 - 8 tab PO UD PRN; Protocol PRN Reason: Hypoglycemia Treatment Stop: 01/18/23 23:30 Glucose (Glucose 40% Gel 15 Gm Tube) 15 - 30 gm PO UD PRN; Protocol PRN Reason: Hypoglycemia Protocol Stop: 01/18/23 23:30 Promethazine HCl 6.25 mg/ (Sodium Chloride) 50.25 mls @ 201 mls/hr IV Q6H PRN PRN Reason: Nausea And Vomiting Stop: 01/18/23 23:30 Potassium Chloride/Sodium Chloride (Normal Saline W/20 Meq Kcl) 20 meq in 1,000 mls @ 80 mls/hr IV .[id number] [facility]; Protocol Stop: 01/19/23 07:59 Last Infusion: 12/21/22 15:03 Dose: Infused Potassium Phosphate 15 mmol/ (Dextrose) 255 mls @ 88 mls/hr IV ONE ONE Stop: 12/22/22 12:08 Insulin Aspart (Insulin Aspart Per Unit Charge) 0 units SC ACHS [facility] Stop: 01/18/23 23:30 Last Admin: 12/22/22 08:54 Dose: 8 units Insulin Glargine (Lantus Per Unit Charge) 5 units SQ HS [facility] Stop: 01/18/23 23:30 Last Admin: 12/21/22 21:19 Dose: 5 units Lactobacillus Acidophilus (Advanced Probiotic 1250 Mg Capsule) 2 cap PO DAILY [facility] Stop: 01/20/23 15:29 Last Admin: 12/22/22 08:57 Dose: 2 cap Metoprolol Succinate (Metoprolol Succ 25mg Ext Rel Tab) 25 mg PO BID [facility] Stop: 01/19/23 20:59 Last Admin: 12/22/22 08:57 Dose: 25 mg Miscellaneous (Carbohydrates For Hypoglycemia ) 15 - 30 gm PO UD PRN PRN Reason: Hypoglycemia Protocol Stop: 01/18/23 23:30 Potassium Chloride (Potassium Chloride Crtab 20 Meq Tabcr) 40 meq PO TID [facility] Stop: 01/19/23 08:59 Last Admin: 12/22/22 08:55 Dose: 40 meq Potassium Phosphate (Pot Phosphate Monobasic W/ Sod Tab) 1 tab PO QID [facility] Stop: 01/20/23 08:59 Last Admin: 12/22/22 08:57 Dose: 1 tab Sacubitril/Valsartan (Valsartan/Sacubitril 26/24mg Tab) 1 tab PO BID [facility] Stop: 01/20/23 09:44 Last Admin: 12/22/22 08:58 Dose: 1 tab Tramadol HCl (Tramadol Hcl 50 Mg Tablet) 25 mg PO Q4H PRN PRN Reason: Pain Stop: 01/18/23 23:30
[2022-12-22] MEDS: LANTUS PER UNIT CHARGE SQ SCH (20:43)
[2022-12-23 06:36] LABS: Hematocrit (blood only) 40.1 % (42.0-52.0); Hemoglobin 14.3 g/dl (14.0-18.0); Mean Corpuscular Hemoglobin 31.5 pg (25.0-34.0); Mean Corpuscular Hgb Conc 35.7 g/dL (32.0-36.0); Mean Corpuscular Volume 88.3 fL (80.0-100.0); Mean Platelet Volume 10.4 fL (9.4-12.4); Platelet Count 303 K/uL (130-400); RDW Coefficient of Variation 14.8 % (11.5-14.5); RDW Standard Deviation 47.7 fL (36.4-46.3); Red Blood Count 4.54 M/uL (4.70-6.10); White Blood Count 15.65 K/ul (4.8-10.8)
[2022-12-23 06:45] LABS: BUN Creatinine Ratio 17.8 (10-20); Calcium 7.6 mg/dl (8.6-10.3); Creatinine Clr Calc Pharmacy 89.4 ml/min; Est GFR (African American) 103.7 ml/min; Est GFR (Non-African American) 89.5 ml/min; Magnesium 1.3 mg/dl (1.7-2.4); Phosphorus 1.7 mg/dl (2.5-4.9)
[2022-12-23] MEDS: buPROPion SR 150 MG TABCR PO SCH (08:57)
[2022-12-23] MEDS: VALSARTAN/SACUBITRIL 26/24MG TAB PO SCH ×2 (08:57→20:28)
[2022-12-23] MEDS: FENOFIBRATE NANOCRYSTALLIZED 145 MG TABLET PO SCH (08:57)
[2022-12-23] MEDS: ATORVASTATIN 40 MG TAB PO SCH (08:57)
[2022-12-23] MEDS: POT PHOSPHATE MONOBASIC W/ SOD TAB PO SCH ×4 (08:57→20:28)
[2022-12-23] MEDS: ADVANCED PROBIOTIC 1250 MG CAPSULE PO SCH (08:58)
[2022-12-23] MEDS: METOPROLOL SUCC 25MG EXT REL TAB PO SCH ×2 (08:58→20:29)
[2022-12-23] MEDS: APIXABAN 5 MG TABLET PO SCH ×2 (08:59→20:28)
[2022-12-23] MEDS: FLUTICASONE PROPIONATE NA SPR 16 GM BTL SCH (08:59)
[2022-12-23] MEDS: POTASSIUM CHLORIDE CRTAB 20 MEQ TABCR PO SCH (08:59)
[2022-12-23] MEDS: INSULIN ASPART PER UNIT CHARGE SC SCH ×4 (09:11→20:39)
--- NOTE | 2022-12-23 09:31 | Hospitalist Progress Note ---
Date of Service December 23, 2022 Assessment & Plan (1) Hypokalemia: (2) Gastroenteritis due to norovirus: (3) Enterotoxigenic Escherichia coli infection: (4) Elevated troponin: Plan 77 yo M presented to ED with weakness/lethargy after 2 weeks of diarrhea. Infectious diarrhea due to norovirus and ETEC-continue conservative management. IVF initially, now stopped. Monitor fluid status. Leukocytosis- due to above. Diarrhea improving. No indication for antibiotics for norovirus and ETEC at this time. Hypokalemia due to diarrhea-being repleted aggressively. Recheck in a.m. Cut down on potassium supplementation once corrects and diarrhea improves. Hypophosphatemia-replace, recheck in a.m. MIHIR-prerenal due to volume depletion. Improved with fluid resuscitation. Cr 1.9->1.6->1.28 -> 0.9 Baseline creatinine of 0.9 Diabetes mellitus type 2- A1c 7.7. On Lantus, sliding scale insulin. Elevated troponin-likely demand ischemia in setting of infectious diarrhea. No chest pain. No indication for further trending at this point. Metabolic acidosis-due to bicarb loss with diarrhea. Monitor. Consider bicarb supplementation if continues to worsen. CAD s/p CABG, stent. Chronic LBBB. chronic systolic heart failure, status post ICD Ischemic cardiomyopathy, biventricular ICD in place- initially held home Entresto and torsemide in setting of MIHIR volume depletion due to diarrhea. Resume as indicated. -Seen by cardiology. Metoprolol increased to 25 twice daily to aid with biventricular pacing. Entresto resumed. torsemide will need to be resumed on DC. -Appropriate function of device, battery longevity of 11 months, approximately 80% biventricular pacing History PAF, paced rhythm on Eliquis COPD, past tobacco abuse, lung status at baseline Disposition-pending symptomatic improvement of diarrhea DVT prophylaxis-Eliquis Full code Patient daughter - Ms. Nicol Palomo, contact #[phone]. Admission and Anticipated Discharge Date Admission Date: December 19, 2022 Subjective Patient seen in follow up of diarrhea. He is feeling much better. No fever, chills, nausea or abdominal pain. Had 1 liquid stool overnight and none today per pt. Per RN, pt feeling very weak this AM. Pt reports good appetite. Review of Systems Review of Systems: All systems reviewed & are unremarkable except as noted in Subjective Physical Exam Physical Exam: General: WD/WN M sitting up in bed, not in distress, on room air HEENT: EOMI, CINDA, MMM Chest: minimal rhonchi CVS: Regular rate and rhythm, normal heart sounds, no murmur Abdomen: Soft, non tender, not distended, normal bowel sounds Neuro: Awake, alert, oriented, conversing well, speech fluent, moves extremities Extremities: no edema, moves extremities Results & Data Results & Data Vital Signs (Past 12 Hours) Vital Signs Temp Pulse Resp BP BP Pulse Ox Pulse Ox 12/23/22 08:00 36.7 C 63 16 131/73 97 12/23/22 03:50 36.9 C 60 16 100/53 L 98 12/22/22 23:00 98 12/22/22 23:51 36.8 C 61 18 111/62 98 O2 Del Method O2 Del Method 12/23/22 08:00 Room Air 12/23/22 03:50 Room Air 12/22/22 23:00 Room Air 12/22/22 23:51 Room Air Laboratory Results 12/23/22 12/23/22 12/23/22 Range/Units 08:00 05:31 05:31 WBC 15.65 H (4.8-10.8) K/ul RBC 4.54 L (4.70-6.10) M/uL Hgb 14.3 (14.0-18.0) g/dl Hct 40.1 L (42.0-52.0) % MCV 88.3 (80.0-100.0) fL MCH 31.5 (25.0-34.0) pg MCHC 35.7 (32.0-36.0) g/dL RDW Std Deviation 47.7 H (36.4-46.3) fL RDW Coeff of Shellie 14.8 H (11.5-14.5) % Plt Count 303 (130-400) K/uL MPV 10.4 (9.4-12.4) fL Sodium 142 (136-145) mmol/L Potassium 4.0 (3.5-5.1) mmol/L Chloride 117 H (98-107) mmol/L Carbon Dioxide 18 L (21-32) mmol/L Anion Gap 7 (3-11) BUN 13 (6-23) mg/dl Creatinine 0.73 (0.6-1.4) mg/dl Est Cr Clr Drug Dosing 89.4 ml/min Est GFR ( Amer) 103.7 ml/min Est GFR (Non-Af Amer) 89.5 ml/min BUN/Creatinine Ratio 17.8 (10-20) Glucose 221 H (70-99(Fasting)) mg/dl POC Glucose 181 H (70-99) mg/dl Calcium 7.6 L (8.6-10.3) mg/dl Phosphorus 1.7 L (2.5-4.9) mg/dl Magnesium 1.3 L (1.7-2.4) mg/dl 12/22/22 12/22/22 12/22/22 Range/Units 20:05 16:56 11:50 WBC (4.8-10.8) K/ul RBC (4.70-6.10) M/uL Hgb (14.0-18.0) g/dl Hct (42.0-52.0) % MCV (80.0-100.0) fL MCH (25.0-34.0) pg MCHC (32.0-36.0) g/dL RDW Std Deviation (36.4-46.3) fL RDW Coeff of Shellie (11.5-14.5) % Plt Count (130-400) K/uL MPV (9.4-12.4) fL Sodium (136-145) mmol/L Potassium (3.5-5.1) mmol/L Chloride (98-107) mmol/L Carbon Dioxide (21-32) mmol/L Anion Gap (3-11) BUN (6-23) mg/dl Creatinine (0.6-1.4) mg/dl Est Cr Clr Drug Dosing ml/min Est GFR ( Amer) ml/min Est GFR (Non-Af Amer) ml/min BUN/Creatinine Ratio (10-20) Glucose (70-99(Fasting)) mg/dl POC Glucose 147 H 108 H 132 H (70-99) mg/dl Calcium (8.6-10.3) mg/dl Phosphorus (2.5-4.9) mg/dl Magnesium (1.7-2.4) mg/dl Medications Administered Current Inpatient Medications Acetaminophen (Acetaminophen 325 Mg Tab) 650 mg PO Q4H PRN PRN Reason: Pain or Fever Stop: 01/18/23 23:30 Apixaban (Apixaban 5 Mg Tablet) 5 mg PO BID [facility] Stop: 01/18/23 23:39 Last Admin: 12/23/22 08:59 Dose: 5 mg Atorvastatin Calcium (Atorvastatin 40 Mg Tab) 80 mg PO QAM [facility] Stop: 01/19/23 08:59 Last Admin: 12/23/22 08:57 Dose: 80 mg Bupropion HCl (Bupropion Sr 150 Mg Tabcr) 150 mg PO DAILY [facility] Stop: 01/19/23 08:59 Last Admin: 12/23/22 08:57 Dose: 150 mg Dextrose (Dextrose 50% 50 Ml Syringe) 25 - 50 ml IV UD PRN; Protocol PRN Reason: Hypoglycemia Protocol Stop: 01/18/23 23:30 Fenofibrate (Fenofibrate Nanocrystallized 145 Mg Tablet) 145 mg PO QAM [facility] Stop: 01/19/23 08:59 Last Admin: 12/23/22 08:57 Dose: 145 mg Fluticasone Propionate (Fluticasone Propionate Na Spr 16 Gm Btl) 2 sprays NA DAILY [facility] Stop: 01/19/23 08:59 Last Admin: 12/23/22 08:59 Dose: 2 sprays Glucagon (Glucagon For Inj 1 Mg Vial) 1 mg SQ UD PRN; Protocol PRN Reason: Hypoglycemia Protocol Stop: 01/18/23 23:30 Glucose (Glucose 10 Tab/Tube) 4 - 8 tab PO UD PRN; Protocol PRN Reason: Hypoglycemia Treatment Stop: 01/18/23 23:30 Glucose (Glucose 40% Gel 15 Gm Tube) 15 - 30 gm PO UD PRN; Protocol PRN Reason: Hypoglycemia Protocol Stop: 01/18/23 23:30 Promethazine HCl 6.25 mg/ (Sodium Chloride) 50.25 mls @ 201 mls/hr IV Q6H PRN PRN Reason: Nausea And Vomiting Stop: 01/18/23 23:30 Potassium Chloride/Sodium Chloride (Normal Saline W/20 Meq Kcl) 20 meq in 1,000 mls @ 80 mls/hr IV .[id number] [facility]; Protocol Stop: 01/19/23 07:59 Last Infusion: 12/21/22 15:03 Dose: Infused Magnesium Sulfate/Dextrose (Magnesium Sulfate / D5w) 1 gm in 100 mls @ 50 mls/hr IV Q2H [facility] Stop: 12/23/22 13:29 Insulin Aspart (Insulin Aspart Per Unit Charge) 0 units SC ACHS [facility] Stop: 01/18/23 23:30 Last Admin: 12/23/22 09:11 Dose: 7 units Insulin Glargine (Lantus Per Unit Charge) 5 units SQ HS [facility] Stop: 01/18/23 23:30 Last Admin: 12/22/22 20:43 Dose: 5 units Lactobacillus Acidophilus (Advanced Probiotic 1250 Mg Capsule) 2 cap PO DAILY [facility] Stop: 01/20/23 15:29 Last Admin: 12/23/22 08:58 Dose: 2 cap Metoprolol Succinate (Metoprolol Succ 25mg Ext Rel Tab) 25 mg PO BID [facility] Stop: 01/19/23 20:59 Last Admin: 12/23/22 08:58 Dose: 25 mg Miscellaneous (Carbohydrates For Hypoglycemia ) 15 - 30 gm PO UD PRN PRN Reason: Hypoglycemia Protocol Stop: 01/18/23 23:30 Potassium Chloride (Potassium Chloride Crtab 20 Meq Tabcr) 40 meq PO TID [facility] Stop: 01/19/23 08:59 Last Admin: 12/23/22 08:59 Dose: 40 meq Potassium Phosphate (Pot Phosphate Monobasic W/ Sod Tab) 2 tab PO QID [facility] Stop: 01/22/23 12:59 Sacubitril/Valsartan (Valsartan/Sacubitril 26/24mg Tab) 1 tab PO BID [facility] Stop: 01/20/23 09:44 Last Admin: 12/23/22 08:57 Dose: 1 tab Tramadol HCl (Tramadol Hcl 50 Mg Tablet) 25 mg PO Q4H PRN PRN Reason: Pain Stop: 01/18/23 23:30
--- NOTE | 2022-12-23 11:13 | Cardiology Progress Note ---
Date of Service December 23, 2022 Assessment & Plan (1) Hypokalemia: (2) MIHIR (acute kidney injury): (3) Gastroenteritis due to norovirus: (4) Ischemic cardiomyopathy: (5) Biventricular ICD (implantable cardioverter-defibrillator) in place: Plan Patient admitted for weakness/lethargy after 2 weeks of diarrhea, diagnosed with gastroenteritis and stool possible for entero virus and norovirus. Supportive care recommended. Improving Patient significantly dehydrated with hypokalemia and MIHIR noted on labs on admission. Entresto, torsemide on hold initially Potassium and magnesium supplemented. Labs improving. Renal function improved to baseline. Continue to hold torsemide Entresto resumed. Tolerating. Continue metoprolol to 25 mg BID (he was to be taking this dose as outpatient) to aid with BIV pacing Appropriate function of device. battery longevity of 11 months. Approx 80% BIV pacing would recommend resuming torsemide on discharge with supplemental potassium. Could also consider future use of spironolactone will need f/u labs closely Case discussed with Dr. Arteaga. Will sign off. Please notify sales operations coordinator survey associate with additional questions or concerns. Admission and Anticipated Discharge Date Admission Date: December 19, 2022 Supervising Physician Co-Signing Physician Notes Supervising Physician Attestation: I have personally performed a history and physical examination on the patient. I agree with the physician trust manager assistant's findings and plan as documented with the following additions. Subjective: Denies chest pain or shortness of breath. Diarrhea improving. Exam: Cardiovascular regular rhythm, no murmurs, no edema Pulmonary: Lungs clear to auscultation bilaterally Data: Labs today 12/23/2022: Potassium 4, creatinine 0.73, phosphorus 1.7, magnesium 1.3 Assessment and Plan: -Problem list as noted above. -Would resume prior to hospital treatment with torsemide 10 mg daily, potassium chloride 10 mill equivalents twice daily at time of discharge. DVT prophylaxis: Patient is on full anticoagulation dose Eliquis. Abilio Arteaga, DO Subjective Patient sitting in bed, resting comfortably. Tearful this morning about his medical problems. Son visiting. Denies chest pain or SOB. Abdominal pain improved. BM's less frequent. Review of Systems Review of Systems: All systems reviewed & are unremarkable except as noted in HPI & below Physical Exam Constitutional: WD/WN, vitals as above well developed and + obese; no acute distress Neck: trachea midline, no thyromegaly + thick neck Respiratory: no labored breathing and no cough Auscultation: lungs clear to auscultation bilaterally; no rales and no rhonchi Cardiovascular: Rate/Rhythm: regular rate and regular rhythm Heart Sounds: no murmur Vessels: no JVD Extremities: no edema Gastrointestinal (Abdomen): normal bowel sounds, soft, nontender, no hepatospl enomegaly Neurologic: PERRL, EOMI, accommodation nl, no face palsy, no dysarthria Psychiatric: A+Ox3, euthymic affect Results & Data Vital Signs (Past 12 Hours) Vital Signs Temp Pulse Pulse Resp BP BP Pulse Ox 12/23/22 09:32 62 12/23/22 09:20 12/23/22 08:00 36.7 C 63 16 131/73 97 12/23/22 03:50 36.9 C 60 16 100/53 L 98 12/22/22 23:51 36.8 C 61 18 111/62 98 O2 Del Method 12/23/22 09:32 12/23/22 09:20 Room Air 12/23/22 08:00 Room Air 12/23/22 03:50 Room Air 12/22/22 23:51 Room Air Laboratory Results CBC 12/23/22 Range/Units 05:31 WBC 15.65 H (4.8-10.8) K/ul RBC 4.54 L (4.70-6.10) M/uL Hgb 14.3 (14.0-18.0) g/dl Hct 40.1 L (42.0-52.0) % Plt Count 303 (130-400) K/uL Comprehensive Metabolic Panel 12/23/22 Range/Units 05:31 Sodium 142 (136-145) mmol/L Potassium 4.0 (3.5-5.1) mmol/L Chloride 117 H (98-107) mmol/L Carbon Dioxide 18 L (21-32) mmol/L BUN 13 (6-23) mg/dl Creatinine 0.73 (0.6-1.4) mg/dl Glucose 221 H (70-99(Fasting)) mg/dl Calcium 7.6 L (8.6-10.3) mg/dl Intake and Output 12/22/22 12/23/22 12/23/22 22:59 06:59 14:59 Intake Total 240 / 1175 240 / 1175 Output Total 302 / 302 Balance -62 / 873 240 / 873 Intake: Oral 240 / 920 240 / 920 Output: Urine 300 / 300 # Bowel Movements 2 / 2 Other: Weight 87.3 kg Weight Measurement Method Built in [facility] Diagnostic Findings Telemetry reviewed: ventricular pacing - underlying afib Medications Administered Current Inpatient Medications Acetaminophen (Acetaminophen 325 Mg Tab) 650 mg PO Q4H PRN PRN Reason: Pain or Fever Stop: 01/18/23 23:30 Apixaban (Apixaban 5 Mg Tablet) 5 mg PO BID [facility] Stop: 01/18/23 23:39 Last Admin: 12/23/22 08:59 Dose: 5 mg Atorvastatin Calcium (Atorvastatin 40 Mg Tab) 80 mg PO QAM [facility] Stop: 01/19/23 08:59 Last Admin: 12/23/22 08:57 Dose: 80 mg Bupropion HCl (Bupropion Sr 150 Mg Tabcr) 150 mg PO DAILY [facility] Stop: 01/19/23 08:59 Last Admin: 12/23/22 08:57 Dose: 150 mg Dextrose (Dextrose 50% 50 Ml Syringe) 25 - 50 ml IV UD PRN; Protocol PRN Reason: Hypoglycemia Protocol Stop: 01/18/23 23:30 Fenofibrate (Fenofibrate Nanocrystallized 145 Mg Tablet) 145 mg PO QAM [facility] Stop: 01/19/23 08:59 Last Admin: 12/23/22 08:57 Dose: 145 mg Fluticasone Propionate (Fluticasone Propionate Na Spr 16 Gm Btl) 2 sprays NA DAILY [facility] Stop: 01/19/23 08:59 Last Admin: 12/23/22 08:59 Dose: 2 sprays Glucagon (Glucagon For Inj 1 Mg Vial) 1 mg SQ UD PRN; Protocol PRN Reason: Hypoglycemia Protocol Stop: 01/18/23 23:30 Glucose (Glucose 10 Tab/Tube) 4 - 8 tab PO UD PRN; Protocol PRN Reason: Hypoglycemia Treatment Stop: 01/18/23 23:30 Glucose (Glucose 40% Gel 15 Gm Tube) 15 - 30 gm PO UD PRN; Protocol PRN Reason: Hypoglycemia Protocol Stop: 01/18/23 23:30 Promethazine HCl 6.25 mg/ (Sodium Chloride) 50.25 mls @ 201 mls/hr IV Q6H PRN PRN Reason: Nausea And Vomiting Stop: 01/18/23 23:30 Potassium Chloride/Sodium Chloride (Normal Saline W/20 Meq Kcl) 20 meq in 1,000 mls @ 80 mls/hr IV .[id number] [facility]; Protocol Stop: 01/19/23 07:59 Last Infusion: 12/21/22 15:03 Dose: Infused Magnesium Sulfate/Dextrose (Magnesium Sulfate / D5w) 1 gm in 100 mls @ 50 mls/hr IV Q2H [facility] Stop: 12/23/22 13:29 Insulin Aspart (Insulin Aspart Per Unit Charge) 0 units SC ACHS [facility] Stop: 01/18/23 23:30 Last Admin: 12/23/22 09:11 Dose: 7 units Insulin Glargine (Lantus Per Unit Charge) 5 units SQ HS [facility] Stop: 01/18/23 23:30 Last Admin: 12/22/22 20:43 Dose: 5 units Lactobacillus Acidophilus (Advanced Probiotic 1250 Mg Capsule) 2 cap PO DAILY [facility] Stop: 01/20/23 15:29 Last Admin: 12/23/22 08:58 Dose: 2 cap Metoprolol Succinate (Metoprolol Succ 25mg Ext Rel Tab) 25 mg PO BID [facility] Stop: 01/19/23 20:59 Last Admin: 12/23/22 08:58 Dose: 25 mg Miscellaneous (Carbohydrates For Hypoglycemia ) 15 - 30 gm PO UD PRN PRN Reason: Hypoglycemia Protocol Stop: 01/18/23 23:30 Potassium Chloride (Potassium Chloride Crtab 20 Meq Tabcr) 40 meq PO TID [facility] Stop: 01/19/23 08:59 Last Admin: 12/23/22 08:59 Dose: 40 meq Potassium Phosphate (Pot Phosphate Monobasic W/ Sod Tab) 2 tab PO QID [facility] Stop: 01/22/23 12:59 Sacubitril/Valsartan (Valsartan/Sacubitril 26/24mg Tab) 1 tab PO BID [facility] Stop: 01/20/23 09:44 Last Admin: 12/23/22 08:57 Dose: 1 tab Tramadol HCl (Tramadol Hcl 50 Mg Tablet) 25 mg PO Q4H PRN PRN Reason: Pain Stop: 01/18/23 23:30
[2022-12-23] MEDS: MAGNESIUM SULFATE / D5W 1 GM/100 ML BAG IV SCH ×2 (11:35→13:37)
[2022-12-23] MEDS: LANTUS PER UNIT CHARGE SQ SCH (20:39)
[2022-12-23] MEDS ORDERED: diphenhydrAMINE Capsule 25 MG CAP PO ONE (23:49)
[2022-12-24 06:56] LABS: BUN Creatinine Ratio 16.4 (10-20); Calcium 7.7 mg/dl (8.6-10.3); Creatinine Clr Calc Pharmacy 98.5 ml/min; Est GFR (African American) 107.4 ml/min; Est GFR (Non-African American) 92.7 ml/min; Magnesium 1.5 mg/dl (1.7-2.4); Phosphorus 2.4 mg/dl (2.5-4.9); Potassium 4.2 mmol/L (3.5-5.1)
--- NOTE | 2022-12-24 08:34 | Hospitalist Progress Note ---
Date of Service December 24, 2022 Assessment & Plan (1) Hypokalemia: (2) Gastroenteritis due to norovirus: (3) Enterotoxigenic Escherichia coli infection: (4) Elevated troponin: Plan 77 yo M presented to ED with weakness/lethargy after 2 weeks of diarrhea. Infectious diarrhea due to norovirus and ETEC-continue conservative management. IVF initially, now stopped. Monitor fluid status. Leukocytosis- due to above. Diarrhea improving. No indication for antibiotics for norovirus and ETEC at this time. Hypokalemia due to diarrhea-being repleted aggressively. Recheck in a.m. Cut down on potassium supplementation once corrects and diarrhea improves. Hypophosphatemia-replace, recheck in a.m. MIHIR-prerenal due to volume depletion. Improved with fluid resuscitation. Cr 1.9->1.6->1.28 -> 0.9 Baseline creatinine of 0.9 Diabetes mellitus type 2- A1c 7.7. On Lantus, sliding scale insulin. Elevated troponin-likely demand ischemia in setting of infectious diarrhea. No chest pain. No indication for further trending at this point. Metabolic acidosis-due to bicarb loss with diarrhea. Monitor. Consider bicarb supplementation if continues to worsen. CAD s/p CABG, stent. Chronic LBBB. chronic systolic heart failure, status post ICD Ischemic cardiomyopathy, biventricular ICD in place- initially held home Entresto and torsemide in setting of MIHIR volume depletion due to diarrhea. Resume as indicated. -Seen by cardiology. Metoprolol increased to 25 twice daily to aid with biventricular pacing. Entresto resumed. torsemide will need to be resumed on DC. -Appropriate function of device, battery longevity of 11 months, approximately 80% biventricular pacing History PAF, paced rhythm on Eliquis COPD, past tobacco abuse, lung status at baseline Disposition-pending symptomatic improvement of diarrhea and PT/OT DVT prophylaxis-Eliquis Full code Patient daughter - Ms. Nicol Palomo, contact #[phone]. Admission and Anticipated Discharge Date Admission Date: December 19, 2022 Subjective Patient seen in follow up of diarrhea. He is feeling much better. No fever, chills, nausea or abdominal pain. Had 1 liquid stool yesterday, none overnight and then 1 liquid stool so far today per pt. He continues to feel very weak though. Will get PT/OT. Pt reports good appetite. Review of Systems Review of Systems: All systems reviewed & are unremarkable except as noted in Subjective Physical Exam Physical Exam: General: WD/WN M laying in bed, not in distress, on room air HEENT: EOMI, CINDA, MMM Chest: minimal rhonchi CVS: Regular rate and rhythm, normal heart sounds, no murmur Abdomen: Soft, non tender, not distended, normal bowel sounds Neuro: Awake, alert, oriented, conversing well, speech fluent, moves extremities Extremities: no edema, moves extremities Results & Data Results & Data Vital Signs (Past 12 Hours) Vital Signs Temp Pulse Resp BP Pulse Ox Pulse Ox O2 Del Method 12/24/22 08:04 36.8 C 61 18 109/62 96 Room Air 12/24/22 07:47 Room Air 12/24/22 07:47 98 12/24/22 03:44 36.8 C 60 18 110/51 L 97 Room Air 12/23/22 23:15 36.9 C 65 18 107/49 L 97 Room Air O2 Del Method 12/24/22 08:04 12/24/22 07:47 12/24/22 07:47 Room Air 12/24/22 03:44 12/23/22 23:15 Laboratory Results 12/24/22 12/24/22 12/24/22 Range/Units 07:47 05:48 02:35 Sodium 140 (136-145) mmol/L Potassium 4.2 (3.5-5.1) mmol/L Chloride 112 H (98-107) mmol/L Carbon Dioxide 22 (21-32) mmol/L Anion Gap 6 (3-11) BUN 11 (6-23) mg/dl Creatinine 0.67 (0.6-1.4) mg/dl Est Cr Clr Drug Dosing 98.5 ml/min Est GFR ( Amer) 107.4 ml/min Est GFR (Non-Af Amer) 92.7 ml/min BUN/Creatinine Ratio 16.4 (10-20) Glucose 140 H (70-99(Fasting)) mg/dl POC Glucose 121 H 124 H (70-99) mg/dl Calcium 7.7 L (8.6-10.3) mg/dl Phosphorus 2.4 L (2.5-4.9) mg/dl Magnesium 1.5 L (1.7-2.4) mg/dl 12/23/22 12/23/22 12/23/22 Range/Units 20:23 16:26 11:27 Sodium (136-145) mmol/L Potassium (3.5-5.1) mmol/L Chloride (98-107) mmol/L Carbon Dioxide (21-32) mmol/L Anion Gap (3-11) BUN (6-23) mg/dl Creatinine (0.6-1.4) mg/dl Est Cr Clr Drug Dosing ml/min Est GFR ( Amer) ml/min Est GFR (Non-Af Amer) ml/min BUN/Creatinine Ratio (10-20) Glucose (70-99(Fasting)) mg/dl POC Glucose 177 H 140 H 207 H (70-99) mg/dl Calcium (8.6-10.3) mg/dl Phosphorus (2.5-4.9) mg/dl Magnesium (1.7-2.4) mg/dl Medications Administered Current Inpatient Medications Acetaminophen (Acetaminophen 325 Mg Tab) 650 mg PO Q4H PRN PRN Reason: Pain or Fever Stop: 01/18/23 23:30 Apixaban (Apixaban 5 Mg Tablet) 5 mg PO BID [facility] Stop: 01/18/23 23:39 Last Admin: 12/23/22 20:28 Dose: 5 mg Atorvastatin Calcium (Atorvastatin 40 Mg Tab) 80 mg PO QAM [facility] Stop: 01/19/23 08:59 Last Admin: 12/23/22 08:57 Dose: 80 mg Bupropion HCl (Bupropion Sr 150 Mg Tabcr) 150 mg PO DAILY [facility] Stop: 01/19/23 08:59 Last Admin: 12/23/22 08:57 Dose: 150 mg Dextrose (Dextrose 50% 50 Ml Syringe) 25 - 50 ml IV UD PRN; Protocol PRN Reason: Hypoglycemia Protocol Stop: 01/18/23 23:30 Fenofibrate (Fenofibrate Nanocrystallized 145 Mg Tablet) 145 mg PO QAM [facility] Stop: 01/19/23 08:59 Last Admin: 12/23/22 08:57 Dose: 145 mg Fluticasone Propionate (Fluticasone Propionate Na Spr 16 Gm Btl) 2 sprays NA DAILY [facility] Stop: 01/19/23 08:59 Last Admin: 12/23/22 08:59 Dose: 2 sprays Glucagon (Glucagon For Inj 1 Mg Vial) 1 mg SQ UD PRN; Protocol PRN Reason: Hypoglycemia Protocol Stop: 01/18/23 23:30 Glucose (Glucose 10 Tab/Tube) 4 - 8 tab PO UD PRN; Protocol PRN Reason: Hypoglycemia Treatment Stop: 01/18/23 23:30 Glucose (Glucose 40% Gel 15 Gm Tube) 15 - 30 gm PO UD PRN; Protocol PRN Reason: Hypoglycemia Protocol Stop: 01/18/23 23:30 Promethazine HCl 6.25 mg/ (Sodium Chloride) 50.25 mls @ 201 mls/hr IV Q6H PRN PRN Reason: Nausea And Vomiting Stop: 01/18/23 23:30 Potassium Chloride/Sodium Chloride (Normal Saline W/20 Meq Kcl) 20 meq in 1,000 mls @ 80 mls/hr IV .[id number] [facility]; Protocol Stop: 01/19/23 07:59 Last Infusion: 12/21/22 15:03 Dose: Infused Magnesium Sulfate/Dextrose (Magnesium Sulfate / D5w) 1 gm in 100 mls @ 50 mls/hr IV Q2H [facility] Stop: 12/24/22 12:44 Insulin Aspart (Insulin Aspart Per Unit Charge) 0 units SC ACHS [facility] Stop: 01/18/23 23:30 Last Admin: 12/23/22 20:39 Dose: 3 units Insulin Glargine (Lantus Per Unit Charge) 5 units SQ HS [facility] Stop: 01/18/23 23:30 Last Admin: 12/23/22 20:39 Dose: 5 units Lactobacillus Acidophilus (Advanced Probiotic 1250 Mg Capsule) 2 cap PO DAILY [facility] Stop: 01/20/23 15:29 Last Admin: 12/23/22 08:58 Dose: 2 cap Metoprolol Succinate (Metoprolol Succ 25mg Ext Rel Tab) 25 mg PO BID [facility] Stop: 01/19/23 20:59 Last Admin: 12/23/22 20:29 Dose: 25 mg Miscellaneous (Carbohydrates For Hypoglycemia ) 15 - 30 gm PO UD PRN PRN Reason: Hypoglycemia Protocol Stop: 01/18/23 23:30 Potassium Chloride (Potassium Chloride Crtab 20 Meq Tabcr) 40 meq PO TID [facility] Stop: 01/19/23 08:59 Last Admin: 12/23/22 08:59 Dose: 40 meq Potassium Phosphate (Pot Phosphate Monobasic W/ Sod Tab) 2 tab PO QID [facility] Stop: 01/22/23 12:59 Last Admin: 12/23/22 20:28 Dose: 2 tab Sacubitril/Valsartan (Valsartan/Sacubitril 26/24mg Tab) 1 tab PO BID [facility] Stop: 01/20/23 09:44 Last Admin: 12/23/22 20:28 Dose: 1 tab Tramadol HCl (Tramadol Hcl 50 Mg Tablet) 25 mg PO Q4H PRN PRN Reason: Pain Stop: 01/18/23 23:30
[2022-12-24] MEDS: MAGNESIUM SULFATE / D5W 1 GM/100 ML BAG IV SCH ×2 (08:53→11:19)
[2022-12-24] MEDS: ADVANCED PROBIOTIC 1250 MG CAPSULE PO SCH (08:54)
[2022-12-24] MEDS: FENOFIBRATE NANOCRYSTALLIZED 145 MG TABLET PO SCH (08:54)
[2022-12-24] MEDS: METOPROLOL SUCC 25MG EXT REL TAB PO SCH ×2 (08:54→21:38)
[2022-12-24] MEDS: ATORVASTATIN 40 MG TAB PO SCH (08:55)
[2022-12-24] MEDS: POT PHOSPHATE MONOBASIC W/ SOD TAB PO SCH ×4 (08:55→21:38)
[2022-12-24] MEDS: buPROPion SR 150 MG TABCR PO SCH (08:55)
[2022-12-24] MEDS: APIXABAN 5 MG TABLET PO SCH ×2 (08:56→21:38)
[2022-12-24] MEDS: VALSARTAN/SACUBITRIL 26/24MG TAB PO SCH ×2 (08:57→21:51)
[2022-12-24] MEDS: FLUTICASONE PROPIONATE NA SPR 16 GM BTL SCH (08:58)
[2022-12-24] MEDS: INSULIN ASPART PER UNIT CHARGE SC SCH ×4 (09:19→21:39)
[2022-12-24] MEDS: LANTUS PER UNIT CHARGE SQ SCH (21:39)
[2022-12-25 06:25] LABS: Hematocrit (blood only) 41.8 % (42.0-52.0); Hemoglobin 14.4 g/dl (14.0-18.0); Mean Corpuscular Hemoglobin 31.4 pg (25.0-34.0); Mean Corpuscular Hgb Conc 34.4 g/dL (32.0-36.0); Mean Corpuscular Volume 91.1 fL (80.0-100.0); Mean Platelet Volume 10.4 fL (9.4-12.4); Platelet Count 307 K/uL (130-400); RDW Coefficient of Variation 15.1 % (11.5-14.5); RDW Standard Deviation 49.8 fL (36.4-46.3); Red Blood Count 4.59 M/uL (4.70-6.10)
[2022-12-25 06:42] LABS: BUN Creatinine Ratio 16.2 (10-20); Calcium 7.9 mg/dl (8.6-10.3); Creatinine Clr Calc Pharmacy 89.9 ml/min; Est GFR (African American) 103.1 ml/min; Magnesium 1.6 mg/dl (1.7-2.4); Phosphorus 3.2 mg/dl (2.5-4.9)
[2022-12-25] MEDS ORDERED: MAGNESIUM SULFATE / D5W 1 GM/100 ML BAG IV ONE (08:01)
--- NOTE | 2022-12-25 08:02 | Hospitalist Progress Note ---
Date of Service December 25, 2022 Assessment & Plan (1) Hypokalemia: (2) Gastroenteritis due to norovirus: (3) Enterotoxigenic Escherichia coli infection: (4) Elevated troponin: Plan 77 yo M presented to ED with weakness/lethargy after 2 weeks of diarrhea. Infectious diarrhea due to norovirus and ETEC-continue conservative management. IVF initially, now stopped. Monitor fluid status. Leukocytosis- due to above. Diarrhea improving. No indication for antibiotics for norovirus and ETEC at this time. Hypokalemia due to diarrhea-being repleted aggressively. Recheck in a.m. Cut down on potassium supplementation once corrects and diarrhea improves. Hypophosphatemia-replace, recheck in a.m. MIHRI-prerenal due to volume depletion. Improved with fluid resuscitation. Cr 1.9->1.6->1.28 -> 0.9 Baseline creatinine of 0.9 Diabetes mellitus type 2- A1c 7.7. On Lantus, sliding scale insulin. Elevated troponin-likely demand ischemia in setting of infectious diarrhea. No chest pain. No indication for further trending at this point. Metabolic acidosis-due to bicarb loss with diarrhea. Resolved. CAD s/p CABG, stent. Chronic LBBB. chronic systolic heart failure, status post ICD Ischemic cardiomyopathy, biventricular ICD in place- initially held home Entresto and torsemide in setting of MIHIR volume depletion due to diarrhea. Resume as indicated. -Seen by cardiology. Metoprolol increased to 25 twice daily to aid with biventricular pacing. Entresto resumed. torsemide will need to be resumed on DC. -Appropriate function of device, battery longevity of 11 months, approximately 80% biventricular pacing History PAF, paced rhythm on Eliquis COPD, past tobacco abuse, lung status at baseline Disposition-pending symptomatic improvement of diarrhea and PT/OT DVT prophylaxis-Eliquis Full code Patient daughter - Ms. Nicol Palomo, contact #[phone]. Admission and Anticipated Discharge Date Admission Date: December 19, 2022 Subjective Patient seen in follow up of diarrhea. He is feeling much better. No fever, chills, nausea or abdominal pain. Still liquid stool but much less frequent. Improving. He continues to feel very weak though. Will try to walk in hallway - discussed w/ RN. Will get PT/OT. Pt reports good appetite. Review of Systems Review of Systems: All systems reviewed & are unremarkable except as noted in Subjective Physical Exam Physical Exam: General: WD/WN M laying in bed, not in distress, on room air HEENT: EOMI, CINDA, MMM Chest: minimal rhonchi CVS: Regular rate and rhythm, normal heart sounds, no murmur Abdomen: Soft, non tender, not distended, normal bowel sounds Neuro: Awake, alert, oriented, conversing well, speech fluent, moves extremities Extremities: no edema, moves extremities Results & Data Results & Data Vital Signs (Past 12 Hours) Vital Signs Temp Pulse Resp BP BP Pulse Ox O2 Del Method 12/25/22 07:44 36.8 C 60 18 123/73 97 Room Air 12/25/22 03:36 37 C 51 L 18 125/69 96 Room Air 12/24/22 23:01 37 C 63 18 105/44 L 98 Room Air Laboratory Results 12/25/22 12/25/22 12/25/22 Range/Units 07:58 05:45 05:45 WBC 17.20 H (4.8-10.8) K/ul RBC 4.59 L (4.70-6.10) M/uL Hgb 14.4 (14.0-18.0) g/dl Hct 41.8 L (42.0-52.0) % MCV 91.1 (80.0-100.0) fL MCH 31.4 (25.0-34.0) pg MCHC 34.4 (32.0-36.0) g/dL RDW Std Deviation 49.8 H (36.4-46.3) fL RDW Coeff of Shellie 15.1 H (11.5-14.5) % Plt Count 307 (130-400) K/uL MPV 10.4 (9.4-12.4) fL Sodium 140 (136-145) mmol/L Potassium 4.0 (3.5-5.1) mmol/L Chloride 107 (98-107) mmol/L Carbon Dioxide 26 (21-32) mmol/L Anion Gap 7 (3-11) BUN 12 (6-23) mg/dl Creatinine 0.74 (0.6-1.4) mg/dl Est Cr Clr Drug Dosing 89.9 ml/min Est GFR ( Amer) 103.1 ml/min Est GFR (Non-Af Amer) 89.0 ml/min BUN/Creatinine Ratio 16.2 (10-20) Glucose 164 H (70-99(Fasting)) mg/dl POC Glucose 167 H (70-99) mg/dl Calcium 7.9 L (8.6-10.3) mg/dl Phosphorus 3.2 (2.5-4.9) mg/dl Magnesium 1.6 L (1.7-2.4) mg/dl 12/24/22 12/24/22 12/24/22 Range/Units 21:33 17:07 11:57 WBC (4.8-10.8) K/ul RBC (4.70-6.10) M/uL Hgb (14.0-18.0) g/dl Hct (42.0-52.0) % MCV (80.0-100.0) fL MCH (25.0-34.0) pg MCHC (32.0-36.0) g/dL RDW Std Deviation (36.4-46.3) fL RDW Coeff of Shellie (11.5-14.5) % Plt Count (130-400) K/uL MPV (9.4-12.4) fL Sodium (136-145) mmol/L Potassium (3.5-5.1) mmol/L Chloride (98-107) mmol/L Carbon Dioxide (21-32) mmol/L Anion Gap (3-11) BUN (6-23) mg/dl Creatinine (0.6-1.4) mg/dl Est Cr Clr Drug Dosing ml/min Est GFR ( Amer) ml/min Est GFR (Non-Af Amer) ml/min BUN/Creatinine Ratio (10-20) Glucose (70-99(Fasting)) mg/dl POC Glucose 127 H 149 H 182 H (70-99) mg/dl Calcium (8.6-10.3) mg/dl Phosphorus (2.5-4.9) mg/dl Magnesium (1.7-2.4) mg/dl Medications Administered Current Inpatient Medications Acetaminophen (Acetaminophen 325 Mg Tab) 650 mg PO Q4H PRN PRN Reason: Pain or Fever Stop: 01/18/23 23:30 Apixaban (Apixaban 5 Mg Tablet) 5 mg PO BID [facility] Stop: 01/18/23 23:39 Last Admin: 12/24/22 21:38 Dose: 5 mg Atorvastatin Calcium (Atorvastatin 40 Mg Tab) 80 mg PO QAM [facility] Stop: 01/19/23 08:59 Last Admin: 12/24/22 08:55 Dose: 80 mg Bupropion HCl (Bupropion Sr 150 Mg Tabcr) 150 mg PO DAILY [facility] Stop: 01/19/23 08:59 Last Admin: 12/24/22 08:55 Dose: 150 mg Dextrose (Dextrose 50% 50 Ml Syringe) 25 - 50 ml IV UD PRN; Protocol PRN Reason: Hypoglycemia Protocol Stop: 01/18/23 23:30 Fenofibrate (Fenofibrate Nanocrystallized 145 Mg Tablet) 145 mg PO QAM [facility] Stop: 01/19/23 08:59 Last Admin: 12/24/22 08:54 Dose: 145 mg Fluticasone Propionate (Fluticasone Propionate Na Spr 16 Gm Btl) 2 sprays NA DAILY [facility] Stop: 01/19/23 08:59 Last Admin: 12/24/22 08:58 Dose: Not Given Glucagon (Glucagon For Inj 1 Mg Vial) 1 mg SQ UD PRN; Protocol PRN Reason: Hypoglycemia Protocol Stop: 01/18/23 23:30 Glucose (Glucose 10 Tab/Tube) 4 - 8 tab PO UD PRN; Protocol PRN Reason: Hypoglycemia Treatment Stop: 01/18/23 23:30 Glucose (Glucose 40% Gel 15 Gm Tube) 15 - 30 gm PO UD PRN; Protocol PRN Reason: Hypoglycemia Protocol Stop: 01/18/23 23:30 Promethazine HCl 6.25 mg/ (Sodium Chloride) 50.25 mls @ 201 mls/hr IV Q6H PRN PRN Reason: Nausea And Vomiting Stop: 01/18/23 23:30 Potassium Chloride/Sodium Chloride (Normal Saline W/20 Meq Kcl) 20 meq in 1,000 mls @ 80 mls/hr IV .[id number] [facility]; Protocol Stop: 01/19/23 07:59 Last Infusion: 12/21/22 15:03 Dose: Infused Magnesium Sulfate/Dextrose (Magnesium Sulfate / D5w) 1 gm in 100 mls @ 50 mls/hr IV ONE ONE Stop: 12/25/22 10:00 Insulin Aspart (Insulin Aspart Per Unit Charge) 0 units SC ACHS [facility] Stop: 01/18/23 23:30 Last Admin: 12/24/22 21:39 Dose: Not Given Insulin Glargine (Lantus Per Unit Charge) 5 units SQ HS [facility] Stop: 01/18/23 23:30 Last Admin: 12/24/22 21:39 Dose: 5 units Lactobacillus Acidophilus (Advanced Probiotic 1250 Mg Capsule) 2 cap PO DAILY [facility] Stop: 01/20/23 15:29 Last Admin: 12/24/22 08:54 Dose: 2 cap Metoprolol Succinate (Metoprolol Succ 25mg Ext Rel Tab) 25 mg PO BID [facility] Stop: 01/19/23 20:59 Last Admin: 12/24/22 21:38 Dose: 25 mg Miscellaneous (Carbohydrates For Hypoglycemia ) 15 - 30 gm PO UD PRN PRN Reason: Hypoglycemia Protocol Stop: 01/18/23 23:30 Potassium Chloride (Potassium Chloride Crtab 20 Meq Tabcr) 40 meq PO TID [facility] Stop: 01/19/23 08:59 Last Admin: 12/23/22 08:59 Dose: 40 meq Potassium Phosphate (Pot Phosphate Monobasic W/ Sod Tab) 2 tab PO QID [facility] Stop: 01/22/23 12:59 Last Admin: 12/24/22 21:38 Dose: 2 tab Sacubitril/Valsartan (Valsartan/Sacubitril 26/24mg Tab) 1 tab PO BID [facility] Stop: 01/20/23 09:44 Last Admin: 12/24/22 21:51 Dose: 1 tab Tramadol HCl (Tramadol Hcl 50 Mg Tablet) 25 mg PO Q4H PRN PRN Reason: Pain Stop: 01/18/23 23:30
[2022-12-25] MEDS: FLUTICASONE PROPIONATE NA SPR 16 GM BTL SCH (08:33)
[2022-12-25] MEDS: buPROPion SR 150 MG TABCR PO SCH (09:32)
[2022-12-25] MEDS: VALSARTAN/SACUBITRIL 26/24MG TAB PO SCH ×2 (09:32→21:40)
[2022-12-25] MEDS: ATORVASTATIN 40 MG TAB PO SCH (09:33)
[2022-12-25] MEDS: METOPROLOL SUCC 25MG EXT REL TAB PO SCH ×2 (09:33→21:36)
[2022-12-25] MEDS: POT PHOSPHATE MONOBASIC W/ SOD TAB PO SCH ×4 (09:34→21:37)
[2022-12-25] MEDS: ADVANCED PROBIOTIC 1250 MG CAPSULE PO SCH (09:34)
[2022-12-25] MEDS: FENOFIBRATE NANOCRYSTALLIZED 145 MG TABLET PO SCH (09:34)
[2022-12-25] MEDS: APIXABAN 5 MG TABLET PO SCH ×2 (09:35→21:35)
[2022-12-25] MEDS: INSULIN ASPART PER UNIT CHARGE SC SCH ×4 (10:25→21:45)
[2022-12-25] MEDS: LANTUS PER UNIT CHARGE SQ SCH (21:34)
[2022-12-26 06:35] LABS: BUN Creatinine Ratio 14.7 (10-20); Calcium 7.6 mg/dl (8.6-10.3); Creatinine Clr Calc Pharmacy 97.8 ml/min; Est GFR (African American) 106.8 ml/min; Est GFR (Non-African American) 92.1 ml/min; Magnesium 1.5 mg/dl (1.7-2.4); Phosphorus 3.3 mg/dl (2.5-4.9); Potassium 3.6 mmol/L (3.5-5.1)
[2022-12-26 06:47] LABS: Hematocrit (blood only) 38.3 % (42.0-52.0); Hemoglobin 13.5 g/dl (14.0-18.0); Mean Corpuscular Hemoglobin 31.5 pg (25.0-34.0); Mean Corpuscular Hgb Conc 35.2 g/dL (32.0-36.0); Mean Corpuscular Volume 89.3 fL (80.0-100.0); Mean Platelet Volume 10.2 fL (9.4-12.4); Platelet Count 268 K/uL (130-400); RDW Coefficient of Variation 14.4 % (11.5-14.5); RDW Standard Deviation 46.4 fL (36.4-46.3); Red Blood Count 4.29 M/uL (4.70-6.10); White Blood Count 13.99 K/ul (4.8-10.8)
[2022-12-26] MEDS ORDERED: POTASSIUM CHLORIDE CRTAB 20 MEQ TABCR PO STA (09:36)
[2022-12-26] MEDS: FLUTICASONE PROPIONATE NA SPR 16 GM BTL SCH (09:41)
[2022-12-26] MEDS: INSULIN ASPART PER UNIT CHARGE SC SCH ×4 (09:50→20:08)
[2022-12-26] MEDS: METOPROLOL SUCC 25MG EXT REL TAB PO SCH ×2 (09:52→19:56)
[2022-12-26] MEDS: buPROPion SR 150 MG TABCR PO SCH (09:53)
[2022-12-26] MEDS: APIXABAN 5 MG TABLET PO SCH ×2 (09:53→19:55)
[2022-12-26] MEDS: FENOFIBRATE NANOCRYSTALLIZED 145 MG TABLET PO SCH (09:53)
[2022-12-26] MEDS: ATORVASTATIN 40 MG TAB PO SCH (09:54)
[2022-12-26] MEDS: POT PHOSPHATE MONOBASIC W/ SOD TAB PO SCH ×4 (09:55→19:55)
[2022-12-26] MEDS: VALSARTAN/SACUBITRIL 26/24MG TAB PO SCH ×2 (09:55→20:05)
[2022-12-26] MEDS: ADVANCED PROBIOTIC 1250 MG CAPSULE PO SCH (09:56)
[2022-12-26] MEDS: MAGNESIUM SULFATE / D5W 1 GM/100 ML BAG IV SCH ×2 (09:59→13:39)
--- NOTE | 2022-12-26 11:52 | Hospitalist Progress Note ---
Date of Service December 26, 2022 Assessment & Plan (1) Hypokalemia: (2) Gastroenteritis due to norovirus: (3) Enterotoxigenic Escherichia coli infection: (4) Elevated troponin: Plan 77 yo M presented to ED with weakness/lethargy after 2 weeks of diarrhea. Infectious diarrhea due to norovirus and ETEC-continue conservative management. IVF initially, now stopped. Monitor fluid status. Leukocytosis- due to above. Improving. Diarrhea improving. No indication for antibiotics for norovirus and ETEC at this time. Hypokalemia due to diarrhea-being repleted aggressively. Recheck in a.m. Replete and monitor. Hypophosphatemia-replace, recheck in a.m. MIHIR-prerenal due to volume depletion. Improved with fluid resuscitation. Cr 1.9->1.6->1.28 -> 0.9 Baseline creatinine of 0.9 Diabetes mellitus type 2- A1c 7.7. On Lantus, sliding scale insulin. Elevated troponin-likely demand ischemia in setting of infectious diarrhea. No chest pain. No indication for further trending at this point. Metabolic acidosis-due to bicarb loss with diarrhea. Resolved. CAD s/p CABG, stent. Chronic LBBB. chronic systolic heart failure, status post ICD Ischemic cardiomyopathy, biventricular ICD in place- initially held home Entresto and torsemide in setting of MIHIR volume depletion due to diarrhea. Resume as indicated. -Seen by cardiology. Metoprolol increased to 25 twice daily to aid with biventricular pacing. Entresto resumed. torsemide will need to be resumed on DC. -Appropriate function of device, battery longevity of 11 months, approximately 80% biventricular pacing History PAF, paced rhythm on Eliquis COPD, past tobacco abuse, lung status at baseline Disposition-pending symptomatic improvement of diarrhea and PT/OT DVT prophylaxis-Eliquis Full code Patient daughter - Ms. Nicol Palomo, contact #[phone]. Admission and Anticipated Discharge Date Admission Date: December 19, 2022 Subjective Patient seen in follow up of diarrhea. He is feeling much better. No fever, chills, nausea or abdominal pain. Still liquid stool but much less frequent. Improving. He continued to feel very weak though and would hardly ambulate. tells me he walked today w/ PT. Pt reports good appetite. Review of Systems Review of Systems: All systems reviewed & are unremarkable except as noted in Subjective Physical Exam Physical Exam: General: WD/WN M laying in bed, not in distress, on room air HEENT: EOMI, CINDA, MMM Chest: minimal rhonchi CVS: Regular rate and rhythm, normal heart sounds, no murmur Abdomen: Soft, non tender, not distended, normal bowel sounds Neuro: Awake, alert, oriented, conversing well, speech fluent, moves extremities Extremities: no edema, moves extremities Results & Data Results & Data Vital Signs (Past 12 Hours) Vital Signs Temp Pulse Pulse Resp BP Pulse Ox Pulse Ox 12/26/22 07:57 12/26/22 07:57 98 12/26/22 07:45 36.8 C 62 18 128/71 12/26/22 04:11 36.6 C 63 18 97/52 L 96 12/26/22 01:20 61 12/26/22 00:01 O2 Del Method O2 Del Method 12/26/22 07:57 Room Air 12/26/22 07:57 Room Air 12/26/22 07:45 12/26/22 04:11 Room Air 12/26/22 01:20 12/26/22 00:01 Room Air Laboratory Results 12/26/22 12/26/22 12/26/22 Range/Units 07:43 05:59 05:59 WBC 13.99 H (4.8-10.8) K/ul RBC 4.29 L (4.70-6.10) M/uL Hgb 13.5 L (14.0-18.0) g/dl Hct 38.3 L (42.0-52.0) % MCV 89.3 (80.0-100.0) fL MCH 31.5 (25.0-34.0) pg MCHC 35.2 (32.0-36.0) g/dL RDW Std Deviation 46.4 H (36.4-46.3) fL RDW Coeff of Shellie 14.4 (11.5-14.5) % Plt Count 268 (130-400) K/uL MPV 10.2 (9.4-12.4) fL Sodium 138 (136-145) mmol/L Potassium 3.6 (3.5-5.1) mmol/L Chloride 108 H (98-107) mmol/L Carbon Dioxide 27 (21-32) mmol/L Anion Gap 3 (3-11) BUN 10 (6-23) mg/dl Creatinine 0.68 (0.6-1.4) mg/dl Est Cr Clr Drug Dosing 97.8 ml/min Est GFR ( Amer) 106.8 ml/min Est GFR (Non-Af Amer) 92.1 ml/min BUN/Creatinine Ratio 14.7 (10-20) Glucose 166 H (70-99(Fasting)) mg/dl POC Glucose 123 H (70-99) mg/dl Calcium 7.6 L (8.6-10.3) mg/dl Phosphorus 3.3 (2.5-4.9) mg/dl Magnesium 1.5 L (1.7-2.4) mg/dl 12/25/22 12/25/22 12/25/22 Range/Units 20:27 16:58 11:43 WBC (4.8-10.8) K/ul RBC (4.70-6.10) M/uL Hgb (14.0-18.0) g/dl Hct (42.0-52.0) % MCV (80.0-100.0) fL MCH (25.0-34.0) pg MCHC (32.0-36.0) g/dL RDW Std Deviation (36.4-46.3) fL RDW Coeff of Shellie (11.5-14.5) % Plt Count (130-400) K/uL MPV (9.4-12.4) fL Sodium (136-145) mmol/L Potassium (3.5-5.1) mmol/L Chloride (98-107) mmol/L Carbon Dioxide (21-32) mmol/L Anion Gap (3-11) BUN (6-23) mg/dl Creatinine (0.6-1.4) mg/dl Est Cr Clr Drug Dosing ml/min Est GFR ( Amer) ml/min Est GFR (Non-Af Amer) ml/min BUN/Creatinine Ratio (10-20) Glucose (70-99(Fasting)) mg/dl POC Glucose 133 H 118 H 148 H (70-99) mg/dl Calcium (8.6-10.3) mg/dl Phosphorus (2.5-4.9) mg/dl Magnesium (1.7-2.4) mg/dl Medications Administered Current Inpatient Medications Acetaminophen (Acetaminophen 325 Mg Tab) 650 mg PO Q4H PRN PRN Reason: Pain or Fever Stop: 01/18/23 23:30 Apixaban (Apixaban 5 Mg Tablet) 5 mg PO BID [facility] Stop: 01/18/23 23:39 Last Admin: 12/26/22 09:53 Dose: 5 mg Atorvastatin Calcium (Atorvastatin 40 Mg Tab) 80 mg PO QAM [facility] Stop: 01/19/23 08:59 Last Admin: 12/26/22 09:54 Dose: 80 mg Bupropion HCl (Bupropion Sr 150 Mg Tabcr) 150 mg PO DAILY [facility] Stop: 01/19/23 08:59 Last Admin: 12/26/22 09:53 Dose: 150 mg Dextrose (Dextrose 50% 50 Ml Syringe) 25 - 50 ml IV UD PRN; Protocol PRN Reason: Hypoglycemia Protocol Stop: 01/18/23 23:30 Fenofibrate (Fenofibrate Nanocrystallized 145 Mg Tablet) 145 mg PO QAM [facility] Stop: 01/19/23 08:59 Last Admin: 12/26/22 09:53 Dose: 145 mg Fluticasone Propionate (Fluticasone Propionate Na Spr 16 Gm Btl) 2 sprays NA DAILY [facility] Stop: 01/19/23 08:59 Last Admin: 12/26/22 09:41 Dose: Not Given Glucagon (Glucagon For Inj 1 Mg Vial) 1 mg SQ UD PRN; Protocol PRN Reason: Hypoglycemia Protocol Stop: 01/18/23 23:30 Glucose (Glucose 10 Tab/Tube) 4 - 8 tab PO UD PRN; Protocol PRN Reason: Hypoglycemia Treatment Stop: 01/18/23 23:30 Glucose (Glucose 40% Gel 15 Gm Tube) 15 - 30 gm PO UD PRN; Protocol PRN Reason: Hypoglycemia Protocol Stop: 01/18/23 23:30 Promethazine HCl 6.25 mg/ (Sodium Chloride) 50.25 mls @ 201 mls/hr IV Q6H PRN PRN Reason: Nausea And Vomiting Stop: 01/18/23 23:30 Potassium Chloride/Sodium Chloride (Normal Saline W/20 Meq Kcl) 20 meq in 1,000 mls @ 80 mls/hr IV .[id number] [facility]; Protocol Stop: 01/19/23 07:59 Last Infusion: 12/21/22 15:03 Dose: Infused Magnesium Sulfate/Dextrose (Magnesium Sulfate / D5w) 1 gm in 100 mls @ 50 mls/hr IV Q2H [facility] Stop: 12/26/22 13:44 Last Infusion: 12/26/22 10:16 Dose: 0 mls/hr Insulin Aspart (Insulin Aspart Per Unit Charge) 0 units SC ACHS [facility] Stop: 01/18/23 23:30 Last Admin: 12/26/22 09:50 Dose: 3 units Insulin Glargine (Lantus Per Unit Charge) 5 units SQ HS [facility] Stop: 01/18/23 23:30 Last Admin: 12/25/22 21:34 Dose: 5 units Lactobacillus Acidophilus (Advanced Probiotic 1250 Mg Capsule) 2 cap PO DAILY [facility] Stop: 01/20/23 15:29 Last Admin: 12/26/22 09:56 Dose: 2 cap Metoprolol Succinate (Metoprolol Succ 25mg Ext Rel Tab) 25 mg PO BID [facility] Stop: 01/19/23 20:59 Last Admin: 12/26/22 09:52 Dose: 25 mg Miscellaneous (Carbohydrates For Hypoglycemia ) 15 - 30 gm PO UD PRN PRN Reason: Hypoglycemia Protocol Stop: 01/18/23 23:30 Potassium Chloride (Potassium Chloride Crtab 20 Meq Tabcr) 40 meq PO TID [facility] Stop: 01/19/23 08:59 Last Admin: 12/23/22 08:59 Dose: 40 meq Potassium Phosphate (Pot Phosphate Monobasic W/ Sod Tab) 2 tab PO QID [facility] Stop: 01/22/23 12:59 Last Admin: 12/26/22 09:55 Dose: 2 tab Sacubitril/Valsartan (Valsartan/Sacubitril 26/24mg Tab) 1 tab PO BID [facility] Stop: 01/20/23 09:44 Last Admin: 12/26/22 09:55 Dose: 1 tab Tramadol HCl (Tramadol Hcl 50 Mg Tablet) 25 mg PO Q4H PRN PRN Reason: Pain Stop: 01/18/23 23:30
[2022-12-26] MEDS: LANTUS PER UNIT CHARGE SQ SCH (20:09)
[2022-12-27 07:00] LABS: Calcium 7.6 mg/dl (8.6-10.3); Creatinine Clr Calc Pharmacy 88.3 ml/min; Est GFR (African American) 102.6 ml/min; Est GFR (Non-African American) 88.5 ml/min; Magnesium 1.6 mg/dl (1.7-2.4); Phosphorus 3.5 mg/dl (2.5-4.9)
[2022-12-27] MEDS: INSULIN ASPART PER UNIT CHARGE SC SCH (08:59)
--- NOTE | 2022-12-27 08:59 | Hospitalist Progress Note ---
Date of Service December 27, 2022 Assessment & Plan (1) Hypokalemia: (2) Gastroenteritis due to norovirus: (3) Enterotoxigenic Escherichia coli infection: (4) Elevated troponin: Plan 77 yo M presented to ED with weakness/lethargy after 2 weeks of diarrhea. Infectious diarrhea due to norovirus and ETEC-continue conservative management. IVF initially, now stopped. Monitor fluid status. Leukocytosis- due to above. Improving. Diarrhea improving. No indication for antibiotics for norovirus and ETEC at this time. Hypokalemia due to diarrhea-being repleted aggressively. Replete and monitor. Recommend to re-check level at next PCP appointment. Hypophosphatemia-replace and monitor. Recommend to re-check level at next PCP appointment. MIHIR-prerenal due to volume depletion. Improved with fluid resuscitation. Cr 1.9->1.6->1.28 -> 0.8 Baseline creatinine of 0.9 Diabetes mellitus type 2- A1c 7.7. On Lantus, sliding scale insulin. Elevated troponin-likely demand ischemia in setting of infectious diarrhea. No chest pain. No indication for further trending at this point. Metabolic acidosis - due to bicarb loss with diarrhea. Resolved. CAD s/p CABG, stent. Chronic LBBB. chronic systolic heart failure, status post ICD Ischemic cardiomyopathy, biventricular ICD in place - initially held home Entresto and torsemide in setting of MIHIR volume depletion due to diarrhea. Resume as indicated. -Seen by cardiology. Metoprolol increased to 25 twice daily to aid with biventricular pacing. Entresto resumed. torsemide will need to be resumed on DC. -Appropriate function of device, battery longevity of 11 months, approximately 80% biventricular pacing History PAF, paced rhythm on Eliquis COPD, past tobacco abuse, lung status at baseline Disposition- Plan to DC home today DVT prophylaxis-Eliquis Full code Patient daughter - Ms. Nicol Palomo, contact #[phone]. Nicol updated today over the phone. Admission and Anticipated Discharge Date Admission Date: December 19, 2022 Subjective Patient seen in follow up of diarrhea. He is feeling much better. No fever, chills, nausea or abdominal pain. Still liquid stool but much less frequent. Improving. Only had one stool yesterday. Pt reports good appetite. PT recommends return home. Review of Systems Review of Systems: All systems reviewed & are unremarkable except as noted in Subjective Physical Exam Physical Exam: General: WD/WN M laying in bed, not in distress, on room air HEENT: EOMI, CINDA, MMM Chest: minimal rhonchi CVS: Regular rate and rhythm, normal heart sounds, no murmur Abdomen: Soft, non tender, not distended, normal bowel sounds Neuro: Awake, alert, oriented, conversing well, speech fluent, moves extremities Extremities: no edema, moves extremities Results & Data Results & Data Vital Signs (Past 12 Hours) Vital Signs Temp Pulse Pulse Resp BP BP Pulse Ox 12/27/22 07:33 36.6 C 60 19 115/63 92 12/27/22 03:46 37 C 60 18 139/59 L 100 12/27/22 00:46 60 12/26/22 23:28 36.8 C 58 L 18 130/57 L 97 O2 Del Method 12/27/22 07:33 Room Air 12/27/22 03:46 Room Air 12/27/22 00:46 12/26/22 23:28 Room Air Laboratory Results 12/27/22 12/27/22 12/26/22 Range/Units 08:02 06:12 20:05 Sodium 141 (136-145) mmol/L Potassium 4.0 (3.5-5.1) mmol/L Chloride 105 (98-107) mmol/L Carbon Dioxide 32 (21-32) mmol/L Anion Gap 4 (3-11) BUN 9 (6-23) mg/dl Creatinine 0.75 (0.6-1.4) mg/dl Est Cr Clr Drug Dosing 88.3 ml/min Est GFR ( Amer) 102.6 ml/min Est GFR (Non-Af Amer) 88.5 ml/min BUN/Creatinine Ratio 12.0 (10-20) Glucose 103 H (70-99(Fasting)) mg/dl POC Glucose 137 H 155 H (70-99) mg/dl Calcium 7.6 L (8.6-10.3) mg/dl Phosphorus 3.5 (2.5-4.9) mg/dl Magnesium 1.6 L (1.7-2.4) mg/dl 12/26/22 12/26/22 Range/Units 17:09 12:06 Sodium (136-145) mmol/L Potassium (3.5-5.1) mmol/L Chloride (98-107) mmol/L Carbon Dioxide (21-32) mmol/L Anion Gap (3-11) BUN (6-23) mg/dl Creatinine (0.6-1.4) mg/dl Est Cr Clr Drug Dosing ml/min Est GFR ( Amer) ml/min Est GFR (Non-Af Amer) ml/min BUN/Creatinine Ratio (10-20) Glucose (70-99(Fasting)) mg/dl POC Glucose 105 H 173 H (70-99) mg/dl Calcium (8.6-10.3) mg/dl Phosphorus (2.5-4.9) mg/dl Magnesium (1.7-2.4) mg/dl Medications Administered Current Inpatient Medications Acetaminophen (Acetaminophen 325 Mg Tab) 650 mg PO Q4H PRN PRN Reason: Pain or Fever Stop: 01/18/23 23:30 Apixaban (Apixaban 5 Mg Tablet) 5 mg PO BID [facility] Stop: 01/18/23 23:39 Last Admin: 12/26/22 19:55 Dose: 5 mg Atorvastatin Calcium (Atorvastatin 40 Mg Tab) 80 mg PO QAM [facility] Stop: 01/19/23 08:59 Last Admin: 12/26/22 09:54 Dose: 80 mg Bupropion HCl (Bupropion Sr 150 Mg Tabcr) 150 mg PO DAILY [facility] Stop: 01/19/23 08:59 Last Admin: 12/26/22 09:53 Dose: 150 mg Dextrose (Dextrose 50% 50 Ml Syringe) 25 - 50 ml IV UD PRN; Protocol PRN Reason: Hypoglycemia Protocol Stop: 01/18/23 23:30 Fenofibrate (Fenofibrate Nanocrystallized 145 Mg Tablet) 145 mg PO QAM [facility] Stop: 01/19/23 08:59 Last Admin: 12/26/22 09:53 Dose: 145 mg Fluticasone Propionate (Fluticasone Propionate Na Spr 16 Gm Btl) 2 sprays NA DAILY [facility] Stop: 01/19/23 08:59 Last Admin: 12/26/22 09:41 Dose: Not Given Glucagon (Glucagon For Inj 1 Mg Vial) 1 mg SQ UD PRN; Protocol PRN Reason: Hypoglycemia Protocol Stop: 01/18/23 23:30 Glucose (Glucose 10 Tab/Tube) 4 - 8 tab PO UD PRN; Protocol PRN Reason: Hypoglycemia Treatment Stop: 01/18/23 23:30 Glucose (Glucose 40% Gel 15 Gm Tube) 15 - 30 gm PO UD PRN; Protocol PRN Reason: Hypoglycemia Protocol Stop: 01/18/23 23:30 Promethazine HCl 6.25 mg/ (Sodium Chloride) 50.25 mls @ 201 mls/hr IV Q6H PRN PRN Reason: Nausea And Vomiting Stop: 01/18/23 23:30 Potassium Chloride/Sodium Chloride (Normal Saline W/20 Meq Kcl) 20 meq in 1,000 mls @ 80 mls/hr IV .[id number] [facility]; Protocol Stop: 01/19/23 07:59 Last Infusion: 12/21/22 15:03 Dose: Infused Magnesium Sulfate/Dextrose (Magnesium Sulfate / D5w) 1 gm in 100 mls @ 50 mls/hr IV Q2H [facility] Stop: 12/27/22 12:59 Insulin Aspart (Insulin Aspart Per Unit Charge) 0 units SC ACHS [facility] Stop: 01/18/23 23:30 Last Admin: 12/26/22 20:08 Dose: 1 units Insulin Glargine (Lantus Per Unit Charge) 5 units SQ HS [facility] Stop: 01/18/23 23:30 Last Admin: 12/26/22 20:09 Dose: 5 units Lactobacillus Acidophilus (Advanced Probiotic 1250 Mg Capsule) 2 cap PO DAILY [facility] Stop: 01/20/23 15:29 Last Admin: 12/26/22 09:56 Dose: 2 cap Metoprolol Succinate (Metoprolol Succ 25mg Ext Rel Tab) 25 mg PO BID [facility] Stop: 01/19/23 20:59 Last Admin: 12/26/22 19:56 Dose: 25 mg Miscellaneous (Carbohydrates For Hypoglycemia ) 15 - 30 gm PO UD PRN PRN Reason: Hypoglycemia Protocol Stop: 01/18/23 23:30 Potassium Chloride (Potassium Chloride Crtab 20 Meq Tabcr) 40 meq PO TID [facility] Stop: 01/19/23 08:59 Last Admin: 12/23/22 08:59 Dose: 40 meq Potassium Phosphate (Pot Phosphate Monobasic W/ Sod Tab) 2 tab PO QID [facility] Stop: 01/22/23 12:59 Last Admin: 12/26/22 19:55 Dose: 2 tab Sacubitril/Valsartan (Valsartan/Sacubitril 26/24mg Tab) 1 tab PO BID [facility] Stop: 01/20/23 09:44 Last Admin: 12/26/22 20:05 Dose: 1 tab Tramadol HCl (Tramadol Hcl 50 Mg Tablet) 25 mg PO Q4H PRN PRN Reason: Pain Stop: 01/18/23 23:30
[2022-12-27] MEDS: MAGNESIUM SULFATE / D5W 1 GM/100 ML BAG IV SCH ×2 (09:08→11:08)
[2022-12-27] MEDS: VALSARTAN/SACUBITRIL 26/24MG TAB PO SCH (09:11)
[2022-12-27] MEDS: ADVANCED PROBIOTIC 1250 MG CAPSULE PO SCH (09:11)
[2022-12-27] MEDS: APIXABAN 5 MG TABLET PO SCH (09:12)
[2022-12-27] MEDS: METOPROLOL SUCC 25MG EXT REL TAB PO SCH (09:12)
[2022-12-27] MEDS: POT PHOSPHATE MONOBASIC W/ SOD TAB PO SCH ×2 (09:12→12:30)
[2022-12-27] MEDS: ATORVASTATIN 40 MG TAB PO SCH (09:12)
[2022-12-27] MEDS: FLUTICASONE PROPIONATE NA SPR 16 GM BTL SCH (09:13)
[2022-12-27] MEDS: FENOFIBRATE NANOCRYSTALLIZED 145 MG TABLET PO SCH (09:13)
[2022-12-27] MEDS: buPROPion SR 150 MG TABCR PO SCH (09:13)
--- NOTE | 2022-12-27 12:26 | Discharge Summary ---
Date of Service December 27, 2022 Admission HPI Per Admitting Provider History obtained from patient, family, and records. Medical history significant for chronic systolic heart failure (EF 35 to 40%, TTE 2020) status post ICD, CAD status post CABG/stent, chronic left bundle branch block, history PAF on Eliquis, hypertension, hyperlipidemia, COPD, past tobacco abuse, DM 2 insulin requiring, mood disorder, past tobacco abuse. Last confinement September 2020 for generalized weakness and fall at home. 2 weeks history of watery diarrhea symptoms with minimal abdominal/back discomfort. Possible sick contacts. No recent antibiotics. Patient has not received COVID-19 vaccination. Sore throat symptoms. Denies chest pain, SOB, cough, fever, chills. Not peeing a lot despite water pills as per daughter. Patient not as active as per daughter. Patient brought to the ER for evaluation for worsening symptoms. 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 Admission Exam Per Admitting Provider GENERAL: Slightly uncomfortable, pleasant, mild dysphonia, no respiratory distress SKIN: Normal color, warm HEENT: [place] palpebral conjunctivae, no ptosis, dry buccal mucosa NECK : Supple, no tenderness CHEST : Decreased breath sounds, no tenderness HEART : RRR, no obvious murmurs ABDOMEN: Some distention, nontender EXTREMITIES : No LE swelling/tenderness, no other conspicuous deformities noted NEUROLOGIC : Coherent, no facial asymmetry, no other gross focality Principal Diagnosis Infectious diarrhea due to norovirus and ETEC Dehydration Electrolyte abnormalities Discharge Exam General: WD/WN M laying in bed, not in distress, on room air HEENT: EOMI, CINDA, MMM Chest: minimal rhonchi CVS: Regular rate and rhythm, normal heart sounds, no murmur Abdomen: Soft, non tender, not distended, normal bowel sounds Neuro: Awake, alert, oriented, conversing well, speech fluent, moves extremities Extremities: no edema, moves extremities Discharge Data Allergies Allergy/AdvReac Type Severity Reaction Status Date / Time VELMA Inhibitors Allergy Unknown unknown Verified 12/19/22 21:19 Consultations 12/19/22 20:33 ED Decision to Admit Stat 12/19/22 22:14 Consult Cardiology Routine Ordered Studies 12/19/22 19:33 CT abd pelvis wo con Stat FINDINGS: Lower chest: Atelectasis is noted in the right lower lung. Liver: Unremarkable. No focal lesions are seen. Gallbladder and biliary tree: Patient is status post cholecystectomy. No intra- or extrahepatic biliary ductal dilation. Pancreas: Unremarkable, no focal lesions. Spleen: Unremarkable. Adrenals: Unremarkable. Kidneys and ureters: Unremarkable. Bladder: Unremarkable. Reproductive organs: Unremarkable. Bowel: The appendix is normal. Lymph nodes Retroperitoneal: Unremarkable. Pelvic: Unremarkable. Mesenteric: Unremarkable. Peritoneum: Normal. Vessels: Atherosclerotic calcifications are seen. Abdominal wall: Unremarkable. Bones: Degenerative changes in the visualized spine. Extensive sclerotic endplate disease is noted in the lumbar spine. IMPRESSION: 1. No acute intra-abdominal abnormalities to explain abdominal pain. 2. Rounded atelectasis in the left lower lobe. 12/19/22 21:41 CT neck soft tissues [CT soft tissue neck wo con] Stat FINDINGS: Oropharynx: Unremarkable. No significant tonsillar enlargement. Hypopharynx: Unremarkable. Larynx: Unremarkable. Normal epiglottis. Trachea: Unremarkable. Retropharyngeal space: Unremarkable. Submandibular/parotid glands: Unremarkable. Glands are normal in size. Thyroid: Unremarkable. No enlarged or calcified nodules. Bones/joints: Degenerative changes of the spine. No acute fracture. Soft tissues: Unremarkable. Vasculature: Atherosclerotic changes of the aorta. Lymph nodes: Unremarkable. No lymphadenopathy. Lung apices: Unremarkable as visualized. IMPRESSION: No acute findings in the neck. Hospital Course (1) Hypokalemia: (2) Gastroenteritis due to norovirus: (3) Enterotoxigenic Escherichia coli infection: (4) Elevated troponin: Plan 77 yo M presented to ED with weakness/lethargy after 2 weeks of diarrhea. Infectious diarrhea due to norovirus and ETEC-continue conservative management. IVF initially, now stopped. Monitor fluid status. Leukocytosis- due to above. Improving. Diarrhea improving. No indication for antibiotics for norovirus and ETEC at this time. Hypokalemia due to diarrhea-being repleted aggressively. Replete and monitor. Recommend to re-check level at next PCP appointment. Hypophosphatemia-replace and monitor. Recommend to re-check level at next PCP appointment. MIHIR-prerenal due to volume depletion. Improved with fluid resuscitation. Cr 1.9->1.6->1.28 -> 0.8 Baseline creatinine of 0.9 Diabetes mellitus type 2- A1c 7.7. On Lantus, sliding scale insulin. Elevated troponin-likely demand ischemia in setting of infectious diarrhea. No chest pain. No indication for further trending at this point. Metabolic acidosis - due to bicarb loss with diarrhea. Resolved. CAD s/p CABG, stent. Chronic LBBB. chronic systolic heart failure, status post ICD Ischemic cardiomyopathy, biventricular ICD in place - initially held home Entresto and torsemide in setting of MIHIR volume depletion due to diarrhea. Resume as indicated. -Seen by cardiology. Metoprolol increased to 25 twice daily to aid with biventricular pacing. Entresto resumed. torsemide will need to be resumed on DC. -Appropriate function of device, battery longevity of 11 months, approximately 80% biventricular pacing History PAF, paced rhythm on Eliquis COPD, past tobacco abuse, lung status at baseline Total Time Total Time Spent Total Time Spent (In Minutes): 40 Discharge Plan Discharge Items Patient Disposition: Home - Self-Care Reason For Visit: HYPOKALEMIA, PACEMAKER ISSUES Discharge Diagnosis: Infectious diarrhea due to norovirus and ETEC Dehydration Electrolyte abnormalities Activity: Per Instructions section Non-emergency contact: Primary Care Provider and Cryptologic Supervisor Call non-emergency contact if: you have any medication questions and your symptoms worsen Follow-up/Referrals: Viet Holly DO [Primary Care Provider] - (Date & Time 01/03/2023 3:00 PM Provider Angella Qureshi DO Department [facility] ) Diet: Regular Addtl Attending Provider Instructions: Follow-up with your primary care doctor, the appointment was scheduled for you for January 03. Follow-up with your movers, as you missed your outpatient appointments due to being hospitalized. When you were seen here by cardiology, your metoprolol was increased to 25 mg twice a day. Recommend checking blood work, BMP, at your next PCP appointment. Make sure to stay well-hydrated, drink plenty of water and Gatorade. Recommend taking probiotics, for next several days, prescription was sent to your pharmacy. Also recommend taking electrolyte supplement, with phosphate. Once your stools are back to normal, and your diet is normal/ as before, make sure to restart torsemide. Discuss this with your primary care doctor, and/or movers. Make sure you keep washing your hands thoroughly, especially after using the bathroom, and before food preparation or eating. Make sure that any meat you eat is thoroughly cooked. Make sure that if you eat any raw vegetables/salads, they are thoroughly washed. Pending Studies at Discharge: No Stand-Alone Forms: My [facility], Smoking Cessation Medications and DC Order Prescriptions: New Phospha 250 Neutral 250 mg Tablet 2 tab PO BID Qty: 10 0RF Advanced Probiotic 625 mg (10 billion cell) Capsule 2 cap PO DAILY Qty: 14 0RF metoprolol succinate 25 mg Tablet Extended Release 24 Hr 25 mg PO BID Qty: 60 0RF Continued nitroglycerin 400 mcg/spray Dewart,Non-Aerosol 1 spry Sublingual UD PRN (Reason: Chest Pain) Rx Instructions: may use every 5 minutes as needed for chest pain (DME) insulin admin supplies insulin pen See Dose Instructions .ROUTE .MEDSUPPLY Qty: 1 0RF Dose Instruction: As directed Rx Instructions: As directed isosorbide dinitrate 10 mg tablet 10 mg PO QAM atorvastatin 80 mg Tablet 80 mg PO QAM fenofibrate micronized 134 mg capsule 134 mg PO QAM metoprolol succinate [Toprol XL] 25 mg tablet extended release 24 hr 25 mg PO QAM fluticasone propionate [Flonase Allergy Relief] 50 mcg/actuation Dewart,Suspension 2 spray INTRANASAL DAILY Entresto 24-26 mg tablet 1 tab PO QAM torsemide 10 mg tablet 10 mg PO QAM insulin glargine [Basaglar KwikPen U-100 Insulin] 100 unit/mL (3 mL) insulin pen 30 unit SUBCUT [facility] Eliquis 5 mg tablet 5 mg PO [facility] bupropion HCl 150 mg tablet sustained-release 12 hr 150 mg PO [facility] potassium chloride 10 mEq tablet extended release 10 meq PO [facility] Rx Instructions: ran out but plans to pick pack worker supply at pharmacy now Discharge Orders: Discharge Order (Routine); Ordered 12/27/22 Ordered By: Romeo Campuzano/Other Patient Handouts: Managing Type 2 Diabetes Admission Data Admit Date/Time: 12/19/22 21:46 Attending Provider: Romeo Rolon Admit Provider: Maged Monteiro Primary Care Provider: Viet Holly Other Providers: Yaniv Meyers ; Maged Monteiro ; Juliana Alvarez ; Mono Rdz ; Abilio Arteaga ; Wilber Bermeo ; Santiago Crespo ; Naseem Koehler ; Todd Pastor ; Amy Lee ; Irma Hess ; Juliana Garcia ; Malcolm Lopez ; Blanca Araya
== END 2022-12-27 16:13 | disposition home or self-care (01) | DRG 372 ==
LOC: ED 18:19 → SUATTDRO 21:46 → 4W 21:46